=== PATIENT | male | born 1960 | race Caucasian/White ===

== ENCOUNTER → 2017-01-17 | Outpatient (CLI) | payer OTHER ==
[2016-06-23 15:31] VITALS: BP 119/56
[~2017-01-17] MED LIST: ATEN50TA PO; BENA40TA2 PO; CLON1TAB3 PO; CYCL10TA2 PO; DOCU-27 PO; FERR-26 PO; GABA600T2 PO; HYDR25TA9 PO; LEVO200T5 PO; LOSA100T6 PO; METH10TA2 PO; MULT-18 PO; NIFE30TA9 PO; RIVA10TA PO; TEST100V IM; WARF-78 PO; WARF10TA6 PO
== END | disposition home or self-care (01) ==
LOC: LAB 14:40
PROVIDERS: ATTEND Orthopaedic Surgery Sports Medicine
DX: M25.561 Pain in right knee (principal)
CPT/HCPCS: 36415; 85651; 86140

== ENCOUNTER → 2017-03-07 | Outpatient (CLI) | payer OTHER ==
[2016-06-23 15:31] VITALS: BP 119/56
[~2017-03-07] MED LIST changes: +DOCU-109 PO; -DOCU-27 PO
== END | disposition home or self-care (01) ==
LOC: LAB 13:26
PROVIDERS: ATTEND Orthopaedic Surgery Sports Medicine
DX: M25.561 Pain in right knee (principal)
CPT/HCPCS: 36415; 85651; 86140

== ENCOUNTER → 2017-05-04 | Outpatient (CLI) | payer OTHER ==
[2016-06-23 15:31] VITALS: BP 119/56
== END | disposition home or self-care (01) ==
LOC: LAB 15:21
PROVIDERS: ATTEND Orthopaedic Surgery Sports Medicine
DX: T84.84XD Pain due to internal orthopedic prosthetic devices, implants and grafts, subsequent encounter (principal)
CPT/HCPCS: 36415; 85651; 86141

== ENCOUNTER → 2017-07-18 | Outpatient (CLI) | payer OTHER ==
[2016-06-23 15:31] VITALS: BP 119/56
[2017-07-18 13:31] LABS: BASO # 0.1 x10^3/uL (0.0-0.2); BASO % 1 % (0-3); EOS % 2 % (0-3); HEMATOCRIT 44.3 % (39.0-53.0); HEMOGLOBIN 14.7 g/dL (13.0-17.5); LYMPH % 27 % (24-48); MEAN CORPUSCULAR HEMOGLOBIN 33 pg (25-35); MEAN CORPUSCULAR HGB CONC 33 g/dL (31-37); MEAN CORPUSCULAR VOLUME 100 fL (79-100); MONO % 6 % (0-9); NEUT % 64 % (31-73); PLATELET COUNT 189 x10^3/uL (140-400); RED BLOOD COUNT 4.44 x10^6/uL (4.30-5.70); RED CELL DISTRIBUTION WIDTH 13.3 % (11.5-14.5); WHITE BLOOD COUNT 7.4 x10^3/uL (4.0-11.0)
[2017-07-18 13:40] LABS: PROTHROMBIN TIME PATIENT 12.1 SEC (11.7-14.0)
[2017-07-18 13:57] LABS: CALCIUM 9.1 mg/dL (8.5-10.1); GFR 77.6; POTASSIUM 3.1 mmol/L (3.5-5.1); TOTAL BILIRUBIN 0.4 mg/dL (0.2-1.0)
== END | disposition home or self-care (01) ==
LOC: LAB 12:56
PROVIDERS: ATTEND Nurse Practitioner Family
DX: Z01.818 Encounter for other preprocedural examination (principal); R05 Cough; Z79.01 Long term (current) use of anticoagulants
CPT/HCPCS: 36415; 80053; 85025; 85379; 85610

== ENCOUNTER → 2017-07-18 | Outpatient (CLI) | payer OTHER ==
[2016-06-23 15:31] VITALS: BP 119/56
[~2017-07-18] MED LIST changes: +CONTRAST GIVEN MC PRN; +IOHEXOL 300 MG/ML 100ML VIAL. IV ONE
--- NOTE | 2017-07-18 16:13 | RAD ---
Chest, 2 views, 07/18/2017: History: Cough The heart size and pulmonary vascularity are normal. No pulmonary infiltrates are seen. There is no evidence of pleural fluid. Mild scattered spurs are present in the spine. There is slight chronic loss of height anteriorly of a lower thoracic vertebral body at approximately T12. IMPRESSION: No acute cardiopulmonary abnormality is detected.
--- NOTE | 2017-07-18 17:12 | RAD ---
Ventilation/perfusion lung scan, 07/18/2017: History: Coughing up blood, history of DVT The ventilation study was performed utilizing 23 mCi of xenon-133. There is symmetric activity in the lungs. There is good washout of xenon from both lungs. Faint hepatic activity is seen on the delayed images, typically related to hepatic steatosis. Perfusion imaging was performed utilizing 6.5 mCi of technetium 99m MAA. There is a small to moderate sized peripheral area of decreased activity in the posterolateral aspect of the right upper chest. This perfusion defect appears to be unmatched by a ventilation abnormality. No significant perfusion abnormality is seen in the left lung. IMPRESSION: Single small to moderate size perfusion defect in the right upper chest representing an intermediate probability of pulmonary emboli. CTA of the chest may be useful for further evaluation, if clinically indicated. Note: The findings were called to the ordering provider at 5:05 PM on 07/18/2017.
== END | disposition home or self-care (01) ==
LOC: KCIC CT 13:27
PROVIDERS: ATTEND Nurse Practitioner Family
DX: I26.99 Other pulmonary embolism without acute cor pulmonale (principal); K76.0 Fatty (change of) liver, not elsewhere classified; Z86.718 Personal history of other venous thrombosis and embolism; Z87.01 Personal history of pneumonia (recurrent); Z86.711 Personal history of pulmonary embolism
CPT/HCPCS: 71020; 78582; 96374; A9540; A9558

== ENCOUNTER 2017-07-19 10:20 | Emergency (ER) | payer OTHER ==
[~2017-07-19 10:20] MED LIST changes: -CONTRAST GIVEN MC PRN; -IOHEXOL 300 MG/ML 100ML VIAL. IV ONE
--- NOTE | 2017-07-19 10:46 | PHYS DOC ---
Past Medical History Past Medical History: Hypothyroid, Other Additional Past Medical Histor: CHRONIC BACK PAIN, hernia Past Surgical History: Other Additional Past Surgical Histo: UMBILICAL HERNIA REPAIR, FEMUR FX, VASECTOMY, BACK, RKA Alcohol Use: Heavy Drug Use: None Adult General Chief Complaint Chief Complaint: OTHER COMPLAINTS HPI HPI Patient is a 57 year old male who presents with no complaints. He states that he saw his primary care physician last week when he was coughing up some blood because it'll had the flu and she had ordered a steady make sure he hasn't had a PE. He states he was called this morning and told it could be positive go to the emergency department. He denies any fevers chills nausea vomiting, denies any shortness of breath, denies any hemoptysis he denies any leg swelling. He has had a history of DVT in the past and was on blood thinners and was taken off after 6 months. Review of Systems Review of Systems Constitutional: Denies fever or chills [] Eyes: Denies change in visual acuity, redness, or eye pain [] HENT: Denies nasal congestion or sore throat [] Respiratory: Denies cough or shortness of breath [] Cardiovascular: No additional information not addressed in HPI [] GI: Denies abdominal pain, nausea, vomiting, bloody stools or diarrhea [] : Denies dysuria or hematuria [] Musculoskeletal: Denies back pain or joint pain [] Integument: Denies rash or skin lesions [] Neurologic: Denies headache, focal weakness or sensory changes [] Endocrine: Denies polyuria or polydipsia [] All other systems were reviewed and found to be within normal limits, except as documented in this note. Current Medications Current Medications Current Medications Medications (Trade) Dose Ordered Sig/Mary Jane Start Time Stop Time Status Last Admin Dose Admin Info (Do NOT chart on this entry -- for MONITORING) 1 each PRN DAILY PRN 07/19/17 12:00 07/21/17 11:59 Iohexol (Omnipaque 300 Mg/ml) 75 ml 1X ONCE 07/19/17 11:45 07/19/17 11:48 DC 07/19/17 12:00 75 ML Sodium Chloride 1,000 ml @ 1,000 mls/hr Q1H 07/19/17 11:06 07/19/17 12:05 DC 07/19/17 11:37 1,000 MLS/HR Allergies Allergies Allergies Coded Allergies Type Severity Reaction Last Updated Verified escitalopram Allergy Severe 06/20/16 Yes fentanyl Allergy Intermediate Rash 06/20/16 Yes fluoxetine Adverse Reaction Severe 06/20/16 Yes duloxetine Adverse Reaction Intermediate Nausea and Vomiting 06/20/16 Yes metaxalone Adverse Reaction Intermediate Nausea and Vomiting 06/20/16 Yes oxycodone Adverse Reaction Intermediate Nausea and Vomiting 06/20/16 Yes pregabalin Adverse Reaction Intermediate Nausea and Vomiting 06/20/16 Yes tramadol Adverse Reaction Intermediate Nausea and Vomiting 06/20/16 Yes Physical Exam Physical Exam Constitutional: Well developed, well nourished, no acute distress, non-toxic appearance. [] HENT: Normocephalic, atraumatic, bilateral external ears normal, oropharynx moist, no oral exudates, nose normal. [] Eyes: PERRLA, EOMI, conjunctiva normal, no discharge. [] Neck: Normal range of motion, no tenderness, supple, no stridor. [] Cardiovascular:Heart rate regular rhythm, no murmur [] Lungs & Thorax: Bilateral breath sounds clear to auscultation [] Abdomen: Bowel sounds normal, soft, no tenderness, no masses, no pulsatile masses. [] Skin: Warm, dry, no erythema, no rash. [] Back: No tenderness, no CVA tenderness. [] Extremities: No tenderness, no cyanosis, no clubbing, ROM intact, no edema. [] Neurologic: Alert and oriented X 3, normal motor function, normal sensory function, no focal deficits noted. [] Psychologic: Affect normal, judgement normal, mood normal. [] Current Patient Data Vital Signs Vital Signs Date Time Temp Pulse Resp B/P (MAP) Pulse Ox O2 Delivery O2 Flow Rate FiO2 07/19/17 11:14 98.1 57 163/84 (110) 92 98.1 07/19/17 10:29 18 Room Air Lab Values Laboratory Tests Test 07/19/17 11:09 07/19/17 12:37 White Blood Count 7.4 x10^3/uL (4.0-11.0) Red Blood Count 4.26 x10^6/uL (4.30-5.70) L Hemoglobin 14.1 g/dL (13.0-17.5) Hematocrit 42.1 % (39.0-53.0) Mean Corpuscular Volume 99 fL (79-100) Mean Corpuscular Hemoglobin 33 pg (25-35) Mean Corpuscular Hemoglobin Concent 34 g/dL (31-37) Red Cell Distribution Width 12.7 % (11.5-14.5) Platelet Count 173 x10^3/uL (140-400) Neutrophils (%) (Auto) 65 % (31-73) Lymphocytes (%) (Auto) 26 % (24-48) Monocytes (%) (Auto) 5 % (0-9) Eosinophils (%) (Auto) 3 % (0-3) Basophils (%) (Auto) 1 % (0-3) Neutrophils # (Auto) 4.8 x10^3uL (1.8-7.7) Lymphocytes # (Auto) 1.9 x10^3/uL (1.0-4.8) Monocytes # (Auto) 0.4 x10^3/uL (0.0-1.1) Eosinophils # (Auto) 0.2 x10^3/uL (0.0-0.7) Basophils # (Auto) 0.1 x10^3/uL (0.0-0.2) Prothrombin Time 12.2 SEC (11.7-14.0) Prothrombin Time INR 1.0 (0.8-1.1) Sodium Level 137 mmol/L (136-145) Potassium Level 3.6 mmol/L (3.5-5.1) Chloride Level 96 mmol/L (98-107) L Carbon Dioxide Level 38 mmol/L (21-32) H Anion Gap 3 (6-14) L Blood Urea Nitrogen 14 mg/dL (8-26) Creatinine 0.9 mg/dL (0.7-1.3) Estimated GFR (Cockcroft-Gault) 87.6 Glucose Level 100 mg/dL (70-99) H Calcium Level 9.6 mg/dL (8.5-10.1) Magnesium Level 1.9 mg/dL (1.8-2.4) Total Bilirubin 0.6 mg/dL (0.2-1.0) Direct Bilirubin 0.1 mg/dL (0.0-0.2) Aspartate Amino Transferase (AST) 25 U/L (15-37) Alanine Aminotransferase (ALT) 32 U/L (16-63) Alkaline Phosphatase 83 U/L (46-116) Creatine Kinase 160 U/L (39-308) Creatine Kinase MB (Mass) < 0.5 ng/mL (0.0-3.6) Creatine Kinase MB Relative Index % (0-4) Troponin I Quantitative < 0.017 ng/mL (0.000-0.055) QH-Yid-P-Type Natriuretic Peptide 332 pg/mL (0-124) H Total Protein 7.6 g/dL (6.4-8.2) Albumin 3.8 g/dL (3.4-5.0) Lipase 192 U/L (73-393) Urine Collection Type Unknown Urine Color Yellow Urine Clarity Clear Urine pH 8.0 Urine Specific [place] 1.010 Urine Protein Negative mg/dL (NEG-TRACE) Urine Glucose (UA) Negative mg/dL (NEG) Urine Ketones (Stick) Negative mg/dL (NEG) Urine Blood Negative (NEG) Urine Nitrite Negative (NEG) Urine Bilirubin Negative (NEG) Urine Urobilinogen Dipstick 0.2 mg/dL (0.2 mg/dL) Urine Leukocyte Esterase Negative (NEG) Urine RBC 0 /HPF (0-2) Urine WBC Occ /HPF (0-4) Urine Squamous Epithelial Cells Occ /LPF Urine Bacteria 0 /HPF (0-FEW) Urine Opiates Screen Neg (NEG) Urine Methadone Screen Pos (NEG) Urine Barbiturates Neg (NEG) Urine Phencyclidine Screen Neg (NEG) Urine Amphetamine/Methamphetamine Neg (NEG) Urine Benzodiazepines Screen Neg (NEG) Urine Cocaine Screen Neg (NEG) Urine Cannabinoids Screen Neg (NEG) Urine Ethyl Alcohol Neg (NEG) Laboratory Tests 07/19/17 11:09 Laboratory Tests 07/19/17 11:09 EKG EKG EKG shows sinus rhythm with rate of [address] elevations or concerning T-wave inversions, normal axis, QTC 446 ms, as interpreted by me. Radiology/Procedures Radiology/Procedures CT Angio shows #[address] evidence of central PE, #2 mild dependent atelectasis of both lungs #3 asymmetric right breast density most likely representing unilateral gynecomastia. Clinical correlation/surveillance is suggested Impressions: CT scan does not show any PE Right-sided gynecomastia Course & Med Decision Making Course & Med Decision Making Pertinent Labs and Imaging studies reviewed. (See chart for details) Patient was seen because of a VQ scan that suggested a possible PE. Labs, EKG, CT angiogram did not show any PE. It did show enlargement of his right breast is concerning for gynecomastia. He is instructed to follow-up with primary care physician regarding these reports in the next few days. He is in stable condition this time being discharged home. Dragon Disclaimer Dragon Disclaimer This electronic medical record was generated, in whole or in part, using a voice recognition dictation system. Departure Departure Impression: Primary Impression: Hemoptysis Disposition: HOME, SELF-CARE Condition: STABLE Referrals: TAVON LAGOS MD (PCP) Patient Instructions: Cough, Adult Additional Instructions: You were seen today because you had an abnormal scan yesterday that showed that he might have a blood clot. We were able do a CT angiogram and it did not show any blood clots. You do have a growth in your right breast that you will need to have followed up on. Please talk to your primary care physician about your right breast. If you develop shortness of breath, dark coughing up blood, having chest pain or other concerns please return back to emergency department. Please follow-up to primary care physician within the next few days. DEE MICTHELL MD Jul 19, 2017 10:46
[2017-07-19] MEDS ORDERED: IV NORMAL SALINE 1000ML BAG 1,000 ML IV SCH (11:06)
[2017-07-19 11:17] LABS: BASO # 0.1 x10^3/uL (0.0-0.2); BASO % 1 % (0-3); EOS % 3 % (0-3); HEMATOCRIT 42.1 % (39.0-53.0); HEMOGLOBIN 14.1 g/dL (13.0-17.5); LYMPH # 1.9 x10^3/uL (1.0-4.8); LYMPH % 26 % (24-48); MEAN CORPUSCULAR HEMOGLOBIN 33 pg (25-35); MEAN CORPUSCULAR HGB CONC 34 g/dL (31-37); MEAN CORPUSCULAR VOLUME 99 fL (79-100); MONO % 5 % (0-9); NEUT % 65 % (31-73); PLATELET COUNT 173 x10^3/uL (140-400); RED BLOOD COUNT 4.26 x10^6/uL (4.30-5.70); RED CELL DISTRIBUTION WIDTH 12.7 % (11.5-14.5); WHITE BLOOD COUNT 7.4 x10^3/uL (4.0-11.0)
[2017-07-19 11:27] LABS: PROTHROMBIN TIME PATIENT 12.2 SEC (11.7-14.0)
--- NOTE | 2017-07-19 11:28 | EKG ---
[facility] [address] [place] [address] Test Date: 2017-07-19 Test Time: 10:41:32 Pat Name: MAURI SUAZO Department: Room: Gender: M Research Associate Professor: : 1960 Requested By: DEE MITCHELL Order Number: [id number] Reading MD: Toribio Clark Measurements Intervals [place] Rate: 51 P: 47 MN: 174 QRS: 19 QRSD: 98 T: 51 QT: 482 QTc: 446 Interpretive Statements SINUS RHYTHM Electronically Signed On 07-24-2017 16:42:38 CT SCAN SPECIAL PROCEDURES TECHNOLOGIST by Toribio Clark
[2017-07-19 11:29] LABS: CALCIUM 9.6 mg/dL (8.5-10.1); CREATININE 0.9 mg/dL (0.7-1.3); GFR 87.6; POTASSIUM 3.6 mmol/L (3.5-5.1)
[2017-07-19 11:35] LABS: ALBUMIN 3.8 g/dL (3.4-5.0); DIRECT BILIRUBIN 0.1 mg/dL (0.0-0.2); MAGNESIUM 1.9 mg/dL (1.8-2.4); TOTAL BILIRUBIN 0.6 mg/dL (0.2-1.0); TOTAL PROTEIN 7.6 g/dL (6.4-8.2)
[2017-07-19] MEDS ORDERED: IOHEXOL 300 MG/ML 100ML VIAL. IV ONE (11:45)
[2017-07-19 11:47] LABS: CKMB MASS < 0.5 ng/mL (0.0-3.6); CREATINE KINASE 160 U/L (39-308)
[2017-07-19] MEDS ORDERED: CONTRAST GIVEN MC PRN (12:00)
[2017-07-19 12:53] LABS: BILIRUBIN,URINE NEGATIVE (NEG); GLUCOSE,URINE NEGATIVE (NEG); NITRITE,URINE NEGATIVE (NEG); PROTEIN,URINE NEGATIVE (NEG-TRACE); UROBILINOGEN,URINE 0.2 mg/dL (0.2 mg/dL)
[2017-07-19 13:00] LABS: BARBITURATES NEG (NEG); BENZODIAZEPINES NEG (NEG); CANNABINOIDS NEG (NEG); COCAINE NEG (NEG); METHADONE POS (NEG); OPIATES NEG (NEG); PHENCYCLIDINE NEG (NEG)
[2017-07-19 13:10] LABS: SQUAMOUS EPITHELIAL CELL,UR OCC /LPF; WBC,URINE OCC /HPF (0-4)
[2017-07-19 13:11] LABS: BACTERIA,URINE 0 /HPF (0-FEW); RBC,URINE 0 /HPF (0-2)
[2017-07-19 14:14] VITALS: BP 155/88
--- NOTE | 2017-07-19 15:46 | RAD ---
CTA of the chest with contrast, 07/19/2017: History: Hemoptysis, abnormal VQ scan, possible pulmonary emboli Multidetector CT imaging was performed following an IV bolus injection of iodinated contrast material. Multiplanar reconstructions were produced including coronal and sagittal MIP images. The central pulmonary arteries are well opacified and no filling defects are seen to suggest pulmonary emboli. There are pulsation type artifacts related to the main pulmonary artery and ascending aorta. Minimal coronary artery calcification is noted. Small mediastinal and hilar lymph nodes are seen without evidence of pathologic enlargement. A small right upper lobe calcification appears to be related to a pulmonary vein. Hazy dependent opacities in both lower lobes are probably due to atelectasis. A component of scarring cannot be excluded. A couple of small subpleural blebs are present in the right lung base. No pulmonary mass is identified. There is no evidence of pleural fluid. Moderate multilevel degenerative changes are present in the spine. There is a triangular-shaped asymmetric area of increased density in the retroareolar region on the right. This most likely represents a unilateral gynecomastia. IMPRESSION: 1. No CT evidence of central pulmonary emboli.. 2. Mild dependent atelectasis in both lungs. 3. Asymmetric right breast density most likely representing unilateral gynecomastia. Clinical correlation/surveillance is suggested. PQRS Compliance Statement: One or more of the following individualized dose reduction techniques were utilized for this examination: 1. Automated exposure control 2. Adjustment of the mA and/or kV according to patient size 3. Use of iterative reconstruction technique
== END 2017-07-19 14:40 | disposition home or self-care (01) ==
LOC: ER 10:20
DX: R04.2 Hemoptysis (principal); N62 Hypertrophy of breast; Z86.718 Personal history of other venous thrombosis and embolism; E03.9 Hypothyroidism, unspecified; G89.29 Other chronic pain; F10.20 Alcohol dependence, uncomplicated; Z88.6 Allergy status to analgesic agent; Z88.5 Allergy status to narcotic agent; Z88.8 Allergy status to other drugs, medicaments and biological substances
CPT/HCPCS: 36415; 71275; 80048; 80076; 80307; 81001; 82553; 83690; 83735; 83880; 84484; 85025; 85610; 93005; 96360; 96361; 99285; J7030; Q9967; G0479

== ENCOUNTER → 2017-09-07 | Outpatient (CLI) | payer BC | END | disposition home or self-care (01) | LOC: KCIC 11:47 | DX: R05 Cough (principal); R91.8 Other nonspecific abnormal finding of lung field | CPT/HCPCS: 71046 ==

== ENCOUNTER → 2017-10-24 | Outpatient (CLI) | payer BC | END | disposition home or self-care (01) | LOC: KCIC 13:03 | DX: M25.561 Pain in right knee (principal); Z96.651 Presence of right artificial knee joint | CPT/HCPCS: 73562 ==

== ENCOUNTER → 2018-07-31 | Outpatient (CLI) | payer BC ==
[~2018-07-31] MED LIST changes: -BENA40TA2 PO; +BENA40TA3 PO; +CLON1TAB11 PO; -CLON1TAB3 PO; -FERR-26 PO; +FERR325T14 PO; +HYDR-2145 PO; -HYDR25TA9 PO; +LOSA100T14 PO; -LOSA100T6 PO; +NIFE30TA15 PO; -NIFE30TA9 PO; +WARF10TA40 PO; -WARF10TA6 PO
--- NOTE | 2018-07-31 15:55 | KCIC ---
CHEST PA LATERAL History: Pneumonia, productive cough and fatigue for 10 days.. Comparison: September 07, 2017 Heart size: Within normal limits. Sabiha/mediastinum: Within normal limits Lungs: No focal airspace consolidation. Pleura: No evidence of pleural effusion. Pneumothorax: None visualized Bones: Regional skeleton appears grossly intact. Miscellaneous: None Impression: No acute radiographic findings. Electronically signed by: Sánchez Reyes MD (07/31/2018 3:51 PM) [facility]-[id number]
== END | disposition home or self-care (01) ==
LOC: KCIC 13:02
PROVIDERS: ATTEND Family Medicine
DX: R05 Cough (principal); R53.83 Other fatigue; Z87.01 Personal history of pneumonia (recurrent)
CPT/HCPCS: 71046

== ENCOUNTER → 2020-12-10 | Outpatient (CLI) | payer MEDICARE ==
[2020-11-19 15:00] VITALS: BP 170/102
[~2020-12-10] MED LIST changes: -CLON1TAB11 PO; +CLONAZEPAM1 MG PO; -GABA600T2 PO; +GABA600T7 PO; +METF-658 PO; -WARF-78 PO; +WARF5TAB2 PO
--- NOTE | 2020-12-10 13:24 | RAD ---
EXAM: Bilateral lower extremity venous Doppler sonogram. HISTORY: Pain and swelling. TECHNIQUE: Duque scale and color Doppler sonographic evaluation of the bilateral lower extremity veins with spectral waveform analysis was performed. FINDINGS: There is normal color flow, normal compressibility and there are normal spectral waveforms in the common femoral, superficial femoral, popliteal, posterior tibial and greater saphenous veins. IMPRESSION: No Doppler evidence of lower extremity deep venous thrombosis. Electronically signed by: Alycia Kaur MD (12/10/2020 1:22 PM) [id number]
--- NOTE | 2020-12-10 13:35 | RAD ---
EXAM: Right knee, 3 views. HISTORY: Edema. COMPARISON: None. FINDINGS: 3 views of right knee are obtained. There is a right knee arthroplasty in expected position . There is a small to moderate right knee effusion. There are joint loose bodies. There is enthesopat hy along the superior patella. IMPRESSION: 1. Right knee arthroplasty in expected position. 2. Small to moderate right knee effusion and joint loose bodies. Electronically signed by: Alycia Kaur MD (12/10/2020 1:33 PM) [id number]
== END ==
LOC: US 12:31
PROVIDERS: ATTEND Internal Medicine Infectious Disease
DX: R60.0 Localized edema (principal); M25.461 Effusion, right knee; Z96.651 Presence of right artificial knee joint
CPT/HCPCS: 73562; 93970

== ENCOUNTER → 2020-12-30 | Outpatient (CLI) | payer MEDICARE ==
[2020-11-19 15:00] VITALS: BP 170/102
[~2020-12-30] MED LIST changes: +GADOTERATE 5 MMOL/10ML VIAL. IVP ONE
[2020-12-30 10:30] LABS: CREATININE 1.1 mg/dL (0.7-1.3); GFR 68.8
--- NOTE | 2020-12-30 16:52 | RAD ---
MRI of the cervical, thoracic and lumbar spine without and with contrast 12/30/2020 CLINICAL HISTORY: History of spinal epidural abscess. TECHNIQUE: Unenhanced T1-weighted and T2-weighted sagittal and axial images and inversion recovery sa gittal of the cervical, thoracic and lumbar spine were obtained. After the intravenous administration of 17 cc of Clariscan enhanced T1-weighted sagittal and axial images of the cervical, thoracic and l umbar spine were obtained. FINDINGS: Comparison is made to patient's MRI of the cervical, thoracic and lumbar spine dated 021. There is straightening of the normal cervical lordosis. Degenerative signal changes are seen involvin g all the disks of the cervical, thoracic and lumbar spine. Degenerative signal changes are seen with in the marrow surrounding these discs. No area of abnormal signal intensity is seen involving the spi nal cord. The patient is post laminectomy at C3 and T2 and T3. The enhancing fluid collections within the poste rior epidural space surrounding the cervical and thoracic spine have resolved with the patient's surg paradise. Enhancement is seen predominantly involving the posterior epidural space throughout the cervical spine extending inferiorly from the C3-4 level to the mid T1 level. This measures 5 mm in thickness. This likely represents residual epidural phlegmon. This has largely improved since the previous exam ination. The severe central spinal canal stenosis and cord impingement seen throughout the majority o f the cervical spinal cord on the previous examination has improved. Mild to moderate central spinal canal stenosis with mild right greater than left cord impingement is seen at C4-5 mild to moderate le ft greater than right central spinal canal stenosis with mild left greater than right cord impingemen t is seen at C5-6, C6-7 and C7-T1. The paraspinal abscesses seen within the right paraspinal soft tis sues on the previous examination have resolved. The epidural abscesses seen involving the anterior and posterior epidural space throughout the thorac ic spinal cord on the previous examination have largely resolved. Enhancement is seen within the ante rior and posterior epidural space which likely represents residual epidural phlegmon. The enhancement within the anterior epidural space measures 4 mm in thickness. The enhancement within the posterior epidural space measures 2 mm in thickness. This has largely improved since the previous examination. The central spinal canal stenosis and cord impingement seen on the previous examination have largely resolved. The patient is post laminectomy at T12-L1. The posterior epidural abscess seen on the previous examin ation in this region has been evacuated. Enhancement is seen within the posterior epidural space exte nding from T12 to L3 and within the anterior epidural space extending from L1 to through L4. Findings are again seen consistent with discitis/osteomyelitis at at L3-4. This does not appear significantly changed. The epidural phlegmon when combined with the changes of degenerative disc disease throughou t the lumbar spine result in moderate central spinal canal stenosis at L2-3, severe central spinal ca nal stenosis at L3-4, severe central spinal canal stenosis throughout the L4 level and L4-5. This has improved slightly since the previous examination. Bony fusion across L5-S1 disc space is again noted . The patient is post laminectomy at L5-S1. Increased signal intensity and abnormal enhancement is se en involving the psoas muscles and paraspinal muscles consistent with myositis. Several microabscesse s are seen scattered throughout the psoas muscles. These measure 3 mm to 1.1 cm in size. They appear to have decreased slightly in number since the previous examination. IMPRESSION: Post laminectomy at C3, T2-3 and T12-L1 with evacuation of the extensive epidural abscess es throughout the spine as discussed above. Residual epidural phlegmon is seen throughout the cervica l, thoracic and lumbar spine as discussed above. The central spinal canal stenosis and cord impingeme nt seen on the previous examinations has improved as discussed above. Findings are again seen consist ent with discitis/osteomyelitis at L3-4 which has not significantly changed. Electronically signed by: Stephane Munoz MD (12/30/2020 4:50 PM) [id number]
== END ==
LOC: MRI 09:47
PROVIDERS: ATTEND Internal Medicine Infectious Disease
DX: G06.2 Extradural and subdural abscess, unspecified (principal); M47.815 Spondylosis without myelopathy or radiculopathy, thoracolumbar region; M47.813 Spondylosis without myelopathy or radiculopathy, cervicothoracic region; M51.36 Other intervertebral disc degeneration, lumbar region; M48.061 Spinal stenosis, lumbar region without neurogenic claudication
CPT/HCPCS: 36415; 72156; 72157; 72158; 82565; A9575

== ENCOUNTER 2021-01-20 03:15 | Emergency (ER) | payer MEDICARE ==
[~2021-01-20] VITALS: Ht 172.7 cm; Wt 100.0 kg
[~2021-01-20 03:15] MED LIST changes: -GADOTERATE 5 MMOL/10ML VIAL. IVP ONE
[2021-01-20] MEDS ORDERED: MORPHINE SULFATE 4 MG/ML VIAL. IV ONE ×3 (03:30→10:30)
[2021-01-20] MEDS ORDERED: IV NORMAL SALINE 500ML BAG 500 ML IV ONE (03:30)
--- NOTE | 2021-01-20 03:35 | ED.ADGEN ---
Past Medical History Past Medical History: Hypothyroid, Other Additional Past Medical Histor: CHRONIC BACK PAIN, hernia Past Surgical History: Other Additional Past Surgical Histo: UMBILICAL HERNIA REPAIR, FEMUR FX, VASECTOMY, BACK, RKA Smoking Status: Former Smoker Alcohol Use: Heavy Drug Use: None General Adult EDM: Chief Complaint: POST-OP PROBLEM HPI: HPI: Patient is a 60 year old male brought in by EMS for low back pain. Patient states the pain is over his lumbar spine. Patient has been worsening over the past 3 to 4 days. Not taking thing for pain. Has a history significant for epidural abscesses were drained here 2 and half months ago. Patient states he was originally discharged with IV antibiotics via PICC which has been DC'd and he was transitioned to p.o. medications. Patient states the [facility] called him to change his prescription to cephalexin. He does not recall any other antibiotics he is or was taking. Denies any fevers. States he has not taken anything for pain. States the pain does not radiate. Denies any lower extremity weakness, bowel or bladder dysfunction. Denies any history of IV drug use or abscesses other than spinal abscesses. Patient states since 2001 he had a back surgery that was complicated by infection. Had a laminectomy with a titanium cage that became infected, was later removed. Review of Systems: Review of Systems: Constitutional: Denies fever or chills. [] Eyes: Denies change in visual acuity. [] HENT: Denies nasal congestion or sore throat. [] Respiratory: Denies cough or shortness of breath. [] Cardiovascular: Denies chest pain or edema. [] GI: Denies abdominal pain, nausea, vomiting, bloody stools or diarrhea. [] : Denies dysuria. [] Musculoskeletal: Denies back pain or joint pain. [] Integument: Denies rash. [] Neurologic: Denies headache, focal weakness or sensory changes. [] Endocrine: Denies polyuria or polydipsia. [] Lymphatic: Denies swollen glands. [] Psychiatric: Denies depression or anxiety. [] Current Medications: Current Medications Medications (Trade) Dose Ordered Sig/[facility] Start Time Stop Time Status Last Admin Dose Admin Info (CONTRAST GIVEN -- Rx MONITORING) 1 each PRN DAILY PRN 01/20/21 04:45 01/22/21 04:44 Iohexol (Omnipaque 300 Mg/ml) 75 ml 1X ONCE 01/20/21 04:45 01/20/21 04:46 DC 01/20/21 04:52 75 ML Morphine Sulfate (Morphine Sulfate) 4 mg 1X ONCE 01/20/21 05:00 01/20/21 05:01 DC 01/20/21 04:59 4 MG Potassium Chloride (Klor-Con) 40 meq 1X ONCE 01/20/21 05:00 01/20/21 05:01 DC 01/20/21 05:01 40 MEQ Sodium Chloride 500 ml @ 500 mls/hr 1X ONCE 01/20/21 03:30 01/20/21 04:29 DC 01/20/21 03:46 500 MLS/HR Allergies: Allergies: Allergies Coded Allergies Type Severity Reaction Last Updated Verified fentanyl Allergy Intermediate Rash 06/20/16 Yes escitalopram Adverse Reaction Severe 11/17/20 Yes fluoxetine Adverse Reaction Severe 06/20/16 Yes duloxetine Adverse Reaction Intermediate Nausea and Vomiting 06/20/16 Yes metaxalone Adverse Reaction Intermediate Nausea and Vomiting 06/20/16 Yes oxycodone Adverse Reaction Intermediate Nausea and Vomiting 06/20/16 Yes pregabalin Adverse Reaction Intermediate Nausea and Vomiting 06/20/16 Yes tramadol Adverse Reaction Intermediate Nausea and Vomiting 06/20/16 Yes Physical Exam: PE: Constitutional: Well developed, well nourished, no acute distress, non-toxic appearance. [] HENT: Normocephalic, atraumatic, bilateral external ears normal, oropharynx moist, no oral exudates, nose normal. [] Eyes: PERRLA, EOMI, conjunctiva normal, no discharge. [] Neck: Normal range of motion, no tenderness, supple, no stridor. [] Cardiovascular:Heart rate regular rhythm, no murmur [] Lungs & Thorax: Bilateral breath sounds clear to auscultation [] Abdomen: Bowel sounds normal, soft, no tenderness, no masses, no pulsatile masses. [] Skin: Warm, dry, no erythema, no rash. [] Back: No tenderness, no CVA tenderness. [] Extremities: No tenderness, no cyanosis, no clubbing, ROM intact, no edema. [] Neurologic: Alert and oriented X 3, normal motor function, normal sensory function, no focal deficits noted. [] Psychologic: Affect normal, judgement normal, mood normal. [] Current Patient Data: Labs: Laboratory Tests Test 01/20/21 03:30 01/20/21 03:36 Sodium Level 141 mmol/L (136-145) Potassium Level 3.0 mmol/L (3.5-5.1) L Chloride Level 99 mmol/L (98-107) Carbon Dioxide Level 27 mmol/L (21-32) Anion Gap 15 (6-14) H Blood Urea Nitrogen 32 mg/dL (8-26) H Creatinine 1.2 mg/dL (0.7-1.3) Estimated GFR (Cockcroft-Gault) 62.2 BUN/Creatinine Ratio 27 (6-20) H Glucose Level 100 mg/dL (70-99) H Calcium Level 9.9 mg/dL (8.5-10.1) Phosphorus Level 2.9 mg/dL (2.6-4.7) Magnesium Level 2.0 mg/dL (1.8-2.4) Total Bilirubin 0.6 mg/dL (0.2-1.0) Aspartate Amino Transferase (AST) 13 U/L (15-37) L Alanine Aminotransferase (ALT) 18 U/L (16-63) Alkaline Phosphatase 92 U/L (46-116) Total Protein 8.4 g/dL (6.4-8.2) H Albumin 4.2 g/dL (3.4-5.0) Albumin/Globulin Ratio 1.0 (1.0-1.7) White Blood Count 7.8 x10^3/uL (4.0-11.0) Red Blood Count 2.97 x10^6/uL (4.30-5.70) L Hemoglobin 9.4 g/dL (13.0-17.5) L Hematocrit 27.7 % (39.0-53.0) L Mean Corpuscular Volume 93 fL (79-100) Mean Corpuscular Hemoglobin 32 pg (25-35) Mean Corpuscular Hemoglobin Concent 34 g/dL (31-37) Red Cell Distribution Width 15.7 % (11.5-14.5) H Platelet Count 138 x10^3/uL (140-400) L Neutrophils (%) (Auto) 51 % (31-73) Lymphocytes (%) (Auto) 44 % (24-48) Monocytes (%) (Auto) 4 % (0-9) Eosinophils (%) (Auto) 1 % (0-3) Basophils (%) (Auto) 1 % (0-3) Neutrophils # (Auto) 4.0 x10^3/uL (1.8-7.7) Lymphocytes # (Auto) 3.4 x10^3/uL (1.0-4.8) Monocytes # (Auto) 0.3 x10^3/uL (0.0-1.1) Eosinophils # (Auto) 0.0 x10^3/uL (0.0-0.7) Basophils # (Auto) 0.1 x10^3/uL (0.0-0.2) Erythrocyte Sedimentation Rate 55 (0-15) H Lactic Acid Level 2.6 mmol/L (0.4-2.0) H C-Reactive Protein, Quantitative 4.9 mg/L (0-3.3) H WP-Wgp-P-Type Natriuretic Peptide 204 pg/mL (0-124) H Laboratory Tests 01/20/21 03:36 Laboratory Tests 01/20/21 03:30 Vital Signs: Vital Signs Date Time Temp Pulse Resp B/P (MAP) Pulse Ox O2 Delivery O2 Flow Rate FiO2 01/20/21 05:22 72 97 01/20/21 04:59 20 Nasal Cannula 01/20/21 03:20 98.6 114/64 (81) 98.6 EKG: EKG: [] Heart Score: C/O Chest Pain: No Risk Factors: Risk Factors: DM, Current or recent (<one month) smoker, HTN, HLP, family history of CAD, obesity. Risk Scores: Score 0 - 3: 2.5% MACE over next 6 weeks - Discharge Home Score 4 - 6: 20.3% MACE over next 6 weeks - Admit for Clinical Observation Score 7 - 10: 72.7% MACE over next 6 weeks - Early Invasive Strategies Radiology/Procedures: Radiology/Procedures: PROCEDURE: CT LUMBAR SPINE WO/W CONTRAST EXAM: CT lumbar spine with and without IV contrast CLINICAL HISTORY: Epidural abscess COMPARISON: MRI 12/30/2020 TECHNIQUE: Helical CT was performed through the lumbar spine before and after the administration of IV contrast. Axial, coronal and sagittal reformatted images were generated. PQRS compliance statement - One or more of the following individualized dose reduction techniques were utilized for this study: 1. Automated exposure control 2. Adjustment of the mA and/or kV according to patient size 3. Use of iterative reconstruction technique FINDINGS: Transitional lumbosacral anatomy. In keeping with prior numeration small ribs are seen at L1. Endplate erosive/destructive changes centered at the L3-4 level with associated sclerosis is consistent with known epidural abscess. No obvious epidural collection is seen although prominent epidural thickening and paraspinal soft tissue thickening is seen. No acute fracture. Interbody fusion L5-S1. Severe L2-3 disc height loss. Postsurgical changes with laminectomy seen at L2-S1 IMPRESSION: Transitional lumbosacral anatomy. Endplate destructive changes L3-4 likely from known discitis/osteomyelitis. Although no definite epidural collection is seen, mild epidural thickening is noted possibly residual phlegmon. This can be further assessed by MRI. [] Course & Med Decision Making: Course & Med Decision Making Pertinent Labs and Imaging studies reviewed. (See chart for details) Discussed with Dr. Talha Castro's physician assistant primary care. Requesting MRI with and without contrast from emergency department to further evaluate epidural thickening. Care transition at shift change. [] Shane Disclaimer: Shane Disclaimer: This electronic medical record was generated, in whole or in part, using a voice recognition dictation system. Departure Departure Referrals: ARMANDO CARLOS MD (PCP) SHANIQUA SCHULTE MD Jan 20, 2021 03:35
[2021-01-20 03:51] LABS: BASO # 0.1 x10^3/uL (0.0-0.2); BASO % 1 % (0-3); EOS % 1 % (0-3); HEMATOCRIT 27.7 % (39.0-53.0); HEMOGLOBIN 9.4 g/dL (13.0-17.5); LYMPH # 3.4 x10^3/uL (1.0-4.8); LYMPH % 44 % (24-48); MEAN CORPUSCULAR HEMOGLOBIN 32 pg (25-35); MEAN CORPUSCULAR HGB CONC 34 g/dL (31-37); MEAN CORPUSCULAR VOLUME 93 fL (79-100); MONO # 0.3 x10^3/uL (0.0-1.1); MONO % 4 % (0-9); NEUT % 51 % (31-73); PLATELET COUNT 138 x10^3/uL (140-400); RED BLOOD COUNT 2.97 x10^6/uL (4.30-5.70); RED CELL DISTRIBUTION WIDTH 15.7 % (11.5-14.5); WHITE BLOOD COUNT 7.8 x10^3/uL (4.0-11.0)
[2021-01-20 04:06] LABS: CALCIUM 9.9 mg/dL (8.5-10.1); CREATININE 1.2 mg/dL (0.7-1.3); GFR 62.2
[2021-01-20 04:12] LABS: ALBUMIN 4.2 g/dL (3.4-5.0); TOTAL BILIRUBIN 0.6 mg/dL (0.2-1.0); TOTAL PROTEIN 8.4 g/dL (6.4-8.2)
[2021-01-20 04:13] LABS: PHOSPHORUS 2.9 mg/dL (2.6-4.7)
[2021-01-20] MEDS ORDERED: CONTRAST GIVEN. MC PRN (04:45)
[2021-01-20] MEDS ORDERED: IOHEXOL 300 MG/ML 100ML VIAL. IV ONE (04:45)
[2021-01-20] MEDS ORDERED: POTASSIUM CHLORIDE 20 MEQ TABLET.ER. PO ONE (05:00)
--- NOTE | 2021-01-20 05:35 | RAD ---
EXAM: CT lumbar spine with and without IV contrast CLINICAL HISTORY: Epidural abscess COMPARISON: MRI 12/30/2020 TECHNIQUE: Helical CT was performed through the lumbar spine before and after the administration of I V contrast. Axial, coronal and sagittal reformatted images were generated. PQRS compliance statement - One or more of the following individualized dose reduction techniques wer e utilized for this study: 1. Automated exposure control 2. Adjustment of the mA and/or kV according to patient size 3. Use of iterative reconstruction technique FINDINGS: Transitional lumbosacral anatomy. In keeping with prior numeration small ribs are seen at L1. Endplate erosive/destructive changes centered at the L3-4 level with associated sclerosis is consiste nt with known epidural abscess. No obvious epidural collection is seen although prominent epidural th ickening and paraspinal soft tissue thickening is seen. No acute fracture. Interbody fusion L5-S1. Severe L2-3 disc height loss. Postsurgical changes with laminectomy seen at L 2-S1 IMPRESSION: Transitional lumbosacral anatomy. Endplate destructive changes L3-4 likely from known discitis/osteomyelitis. Although no definite epidural collection is seen, mild epidural thickening is noted possibly residual phlegmon. This can be further assessed by MRI. Electronically signed by: Mac Lee MD (01/20/2021 5:33 AM) ZECHARIAH
[2021-01-20] MEDS ORDERED: ONDANSETRON PF 4 MG/2 ML VIAL. IVP ONE (07:30)
[2021-01-20] MEDS ORDERED: GADOTERATE 7.5 MMOL/15ML VIAL. IVP ONE (09:45)
--- NOTE | 2021-01-20 10:44 | RAD ---
MRI of the lumbar spine without and with contrast 01/20/2021 CLINICAL HISTORY: History of discitis/osteomyelitis involving the lumbar spine with history of epidur al abscess. TECHNIQUE: Unenhanced T1-weighted and T2-weighted sagittal and axial and inversion recovery sagittal images of the lumbar spine were obtained. After the intravenous administration 20 cc of Clariscan, en hanced fat saturated T1-weighted sagittal and axial images of the lumbar spine were obtained. FINDINGS: Comparison study is dated 12/30/2020. Mild S-shaped curvature of the thoracolumbar spine is seen. The patient is post laminectomy at T12-L1 and L5-S1. Mild anterolisthesis of L4 in relation to L5 is seen. Bony fusion across the L4-5 disc sp janessa is again noted. A hypoplastic disc is seen at L5-S1. Degenerative signal changes and varying loss of height are seen involving all the disks of the lower thoracic and lumbar disc spaces. Findings ar e again seen consistent with discitis/osteomyelitis at L2-3. This has improved since the previous exa mination. The enhancing epidural phlegmon seen within the anterior and posterior epidural space from the previous examination has largely resolved. The myositis and microabscesses seen throughout the vi sualized psoas muscles has improved. No new area of discitis/osteomyelitis is seen. The changes of degenerative disc disease are again seen throughout the lumbar disc spaces. These cons ist of mild to moderate generalized disc bulges, degenerative changes involving the facet joints and mild to moderate ligamentum flavum hypertrophy. These findings result in mild central spinal canal st enosis at L1-2, severe central spinal canal stenosis at L3-4 and moderate to severe central spinal ca nal stenosis at L4-5 and mild to moderate bilateral neural foraminal stenosis is seen at L1-2, L2-3 a nd L3-4. IMPRESSION: There has been interval improvement in the discitis/osteomyelitis involving the lumbar sp ine as discussed above. The enhancing epidural phlegmon seen on the previous examination has largely resolved. No new area of discitis/osteomyelitis is seen. Electronically signed by: Stephane Munoz MD (01/20/2021 10:42 AM) [id number]
[2021-01-20] MEDS ORDERED: OXYC1TAB15 PO (11:11)
[2021-01-20 14:52] VITALS: BP 114/56
== END 2021-01-20 15:15 | disposition home or self-care (01) ==
LOC: ER 03:15
DX: M54.5 Low back pain (principal); G89.29 Other chronic pain; M46.26 Osteomyelitis of vertebra, lumbar region; E03.9 Hypothyroidism, unspecified; Z87.891 Personal history of nicotine dependence; F10.20 Alcohol dependence, uncomplicated; Y90.9 Presence of alcohol in blood, level not specified; Z88.4 Allergy status to anesthetic agent; Z88.5 Allergy status to narcotic agent; Z88.6 Allergy status to analgesic agent; Z88.8 Allergy status to other drugs, medicaments and biological substances
CPT/HCPCS: 36415; 72133; 72158; 80053; 83605; 83735; 83880; 84100; 85025; 85651; 86140; 87040; 96361; 96374; 96375; 96376; 99284; A9575; G0480; J2270; J2405; J7040; Q9967

== ENCOUNTER 2021-01-26 13:31 | Inpatient (IN) | payer MEDICARE ==
[~2021-01-26] VITALS: Ht 172.7 cm; Wt 84.5 kg
[~2021-01-26 13:31] MED LIST changes: +OXYC1TAB15 PO
[2021-01-26] MEDS ORDERED: ONDANSETRON PF 4 MG/2 ML VIAL. IV ONE (14:30)
[2021-01-26] MEDS ORDERED: CONTRAST GIVEN. MC PRN (14:30)
[2021-01-26] MEDS ORDERED: fentaNYL PF VIAL 100 MCG/2 ML VIAL IV ONE (14:30)
[2021-01-26] MEDS ORDERED: IOHEXOL 300 MG/ML 100ML VIAL. IV ONE (14:30)
[2021-01-26 14:38] LABS: BASO % 1 % (0-3); EOS % 1 % (0-3); HEMATOCRIT 22.9 % (39.0-53.0); HEMOGLOBIN 7.7 g/dL (13.0-17.5); LYMPH # 2.1 x10^3/uL (1.0-4.8); LYMPH % 32 % (24-48); MEAN CORPUSCULAR HEMOGLOBIN 32 pg (25-35); MEAN CORPUSCULAR HGB CONC 34 g/dL (31-37); MEAN CORPUSCULAR VOLUME 94 fL (79-100); MONO # 0.3 x10^3/uL (0.0-1.1); MONO % 5 % (0-9); NEUT # 4.1 x10^3/uL (1.8-7.7); NEUT % 62 % (31-73); PLATELET COUNT 81 x10^3/uL (140-400); RED BLOOD COUNT 2.44 x10^6/uL (4.30-5.70); RED CELL DISTRIBUTION WIDTH 15.8 % (11.5-14.5); WHITE BLOOD COUNT 6.5 x10^3/uL (4.0-11.0)
[2021-01-26 14:45] LABS: CALCIUM 8.7 mg/dL (8.5-10.1); CREATININE 1.4 mg/dL (0.7-1.3); GFR 51.9; POTASSIUM 4.3 mmol/L (3.5-5.1)
[2021-01-26 14:54] LABS: ALBUMIN 3.8 g/dL (3.4-5.0); ALBUMIN/GLOBULIN RATIO 1.1 (1.0-1.7); C-REACTIVE PROTEIN 2.1 mg/L (0-3.3); TOTAL BILIRUBIN 0.4 mg/dL (0.2-1.0); TOTAL PROTEIN 7.3 g/dL (6.4-8.2)
--- NOTE | 2021-01-26 15:18 | RAD ---
Exam: CT lumbar spine with contrast INDICATION: Lower back pain, unable to void TECHNIQUE: Sequential axial images through the lumbar spine obtained without IV contrast. Sagittal an d coronal reformatted images were reconstructed from the axial data and reviewed. Exposure: One or more of the following in the visualized dose reduction techniques were utilized for this examination: 1. Automated exposure control 2. Adjustment of the MA and/or KV according to patient size 3. Use of iterative of reconstructive technique Comparisons: MRI lumbar spine 01/20/2021 FINDINGS: Vertebral body heights are well-maintained. Grade 1 retrolisthesis of L3 on L4. Transitional anatomy is again noted with lumbarization of the S1 vertebral body. Fracture to the lumbar spine is not identified. Laminectomy changes at L2-L3 and at the transitional level are again seen. Redemonstration of endplate destructive changes at L3-L4 similar to the prior study with associated a djacent sclerosis in the vertebral bodies.. This is not significantly changed when compared to the pr ior exam. At least moderate spinal canal stenosis at this level. There is severe degenerative change at L2-L3 causing moderate severe bilateral neural foraminal steno sis greater on the left. Additionally there is at least moderate spinal canal stenosis at L4-L5. Visualized paraspinal soft tissues are unremarkable. IMPRESSION: Redemonstrated changes of discitis osteomyelitis at L3-L4 with at least moderate spinal canal stenosi s at that level similar to the prior study. Electronically signed by: Morenita Duncan MD (01/26/2021 3:16 PM) LIBBY
[2021-01-26 17:05] LABS: BILIRUBIN,URINE NEGATIVE (NEG); CLARITY,URINE CLEAR; COLOR,URINE YELLOW; NITRITE,URINE NEGATIVE (NEG); PH,URINE 5.5 (<5.0-8.0); PROTEIN,URINE 30 mg/dL (NEG-TRACE); UROBILINOGEN,URINE 0.2 mg/dL (0.2 mg/dL)
--- NOTE | 2021-01-26 17:06 | ED.ADGEN ---
Past Medical History Past Medical History: Anxiety, Arthritis, Constipation, Depression, DVT, Hypertension, Hypothyroid, Pneumonia, Other Additional Past Medical Histor: CHRONIC BACK PAIN, hernia, SLEEP APNEA Past Surgical History: Other Additional Past Surgical Histo: UMBILICAL HERNIA REPAIR, FEMUR FX, VASECTOMY, BACK, RKA Smoking Status: Former Smoker Alcohol Use: Heavy Drug Use: None General Adult EDM: Chief Complaint: URINARY RETENTION HPI: HPI: Patient is a 61 year old male who presents emergency department via EMS with complaints of acute urinary retention since January 24, 2021 in the evening and increased lower back pain. Patient denies any recent injury or fall. He reports a history of chronic lower back pain. Patient states he was seen here on January 20, 2021 for the same back pain. Patient currently rates the pain a 9 out of 10 on the pain scale, he denies any alleviating factors. Patient states he has pressure in his lower abdomen due to his bladder being full. He denies any history of enlarged prostate. Patient denies any fever, cough, shortness of breath, nausea, vomiting, diarrhea, or new injury. He reports a history of neuropathy in both of his lower extremities is any change in his sensation. Review of Systems: Review of Systems: Complete ROS is negative unless otherwise noted in HPI. Current Medications: Current Medications Medications (Trade) Dose Ordered Sig/[facility] Start Time Stop Time Status Last Admin Dose Admin Fentanyl Citrate (Fentanyl 2ml Vial) 50 mcg 1X ONCE 01/26/21 14:30 01/26/21 14:31 DC 01/26/21 14:59 50 MCG Info (CONTRAST GIVEN -- Rx MONITORING) 1 each PRN DAILY PRN 01/26/21 14:30 01/28/21 14:29 Iohexol (Omnipaque 300 Mg/ml) 75 ml 1X ONCE 01/26/21 14:30 01/26/21 14:31 DC 01/26/21 14:54 75 ML Ondansetron HCl (Zofran) 4 mg 1X ONCE 01/26/21 14:30 01/26/21 14:31 DC 01/26/21 14:59 4 MG Allergies: Allergies: Allergies Coded Allergies Type Severity Reaction Last Updated Verified fentanyl Allergy Intermediate Rash 06/20/16 Yes escitalopram Adverse Reaction Severe 11/17/20 Yes fluoxetine Adverse Reaction Severe 06/20/16 Yes duloxetine Adverse Reaction Intermediate Nausea and Vomiting 06/20/16 Yes metaxalone Adverse Reaction Intermediate Nausea and Vomiting 06/20/16 Yes oxycodone Adverse Reaction Intermediate Nausea and Vomiting 06/20/16 Yes pregabalin Adverse Reaction Intermediate Nausea and Vomiting 06/20/16 Yes tramadol Adverse Reaction Intermediate Nausea and Vomiting 06/20/16 Yes Physical Exam: PE: See Above Constitutional: Well developed, well nourished, no acute distress, non-toxic appearance, appears uncomfortable, irritable and frustrated demeanor. [] HENT: Normocephalic, atraumatic, bilateral external ears normal, nose normal. [] Eyes: PERRLA, EOMI, conjunctiva normal, no discharge. [] Neck: Normal range of motion, no stridor. [] Cardiovascular:Heart rate regular rhythm Lungs & Thorax: Respirations even and unlabored, no retractions, no respiratory distress Abdomen: soft, no palpable mass Skin: Warm, dry, no erythema, no rash. [] Extremities: No cyanosis, ROM intact, no edema. [] Neurologic: Alert and oriented X 3, no focal deficits noted. [] Psychologic: Affect irritable, judgement normal, mood normal. [] Current Patient Data: Labs: Laboratory Tests Test 01/26/21 14:20 01/26/21 14:24 Urine Collection Type Unknown Urine Color Yellow Urine Clarity Clear Urine pH 5.5 (<5.0-8.0) Urine Specific [place] 1.020 (1.000-1.030) Urine Protein 30 mg/dL (NEG-TRACE) Urine Glucose (UA) Negative mg/dL (NEG) Urine Ketones (Stick) Negative mg/dL (NEG) Urine Blood Negative (NEG) Urine Nitrite Negative (NEG) Urine Bilirubin Negative (NEG) Urine Urobilinogen Dipstick 0.2 mg/dL (0.2 mg/dL) Urine Leukocyte Esterase Moderate (NEG) Urine RBC Rare /HPF (0-2) Urine WBC 20-40 /HPF (0-4) Urine Bacteria Few /HPF (0-FEW) Urine Hyaline Casts Many /HPF Urine Mucus Marked /LPF Urine Yeast Present /HPF White Blood Count 6.5 x10^3/uL (4.0-11.0) Red Blood Count 2.44 x10^6/uL (4.30-5.70) L Hemoglobin 7.7 g/dL (13.0-17.5) L Hematocrit 22.9 % (39.0-53.0) L Mean Corpuscular Volume 94 fL (79-100) Mean Corpuscular Hemoglobin 32 pg (25-35) Mean Corpuscular Hemoglobin Concent 34 g/dL (31-37) Red Cell Distribution Width 15.8 % (11.5-14.5) H Platelet Count 81 x10^3/uL (140-400) L Neutrophils (%) (Auto) 62 % (31-73) Lymphocytes (%) (Auto) 32 % (24-48) Monocytes (%) (Auto) 5 % (0-9) Eosinophils (%) (Auto) 1 % (0-3) Basophils (%) (Auto) 1 % (0-3) Neutrophils # (Auto) 4.1 x10^3/uL (1.8-7.7) Lymphocytes # (Auto) 2.1 x10^3/uL (1.0-4.8) Monocytes # (Auto) 0.3 x10^3/uL (0.0-1.1) Eosinophils # (Auto) 0.0 x10^3/uL (0.0-0.7) Basophils # (Auto) 0.0 x10^3/uL (0.0-0.2) Erythrocyte Sedimentation Rate 31 (0-15) H Sodium Level 138 mmol/L (136-145) Potassium Level 4.3 mmol/L (3.5-5.1) Chloride Level 101 mmol/L (98-107) Carbon Dioxide Level 23 mmol/L (21-32) Anion Gap 14 (6-14) Blood Urea Nitrogen 30 mg/dL (8-26) H Creatinine 1.4 mg/dL (0.7-1.3) H Estimated GFR (Cockcroft-Gault) 51.9 BUN/Creatinine Ratio 21 (6-20) H Glucose Level 110 mg/dL (70-99) H Calcium Level 8.7 mg/dL (8.5-10.1) Total Bilirubin 0.4 mg/dL (0.2-1.0) Aspartate Amino Transferase (AST) 14 U/L (15-37) L Alanine Aminotransferase (ALT) 22 U/L (16-63) Alkaline Phosphatase 74 U/L (46-116) C-Reactive Protein, Quantitative 2.1 mg/L (0-3.3) Total Protein 7.3 g/dL (6.4-8.2) Albumin 3.8 g/dL (3.4-5.0) Albumin/Globulin Ratio 1.1 (1.0-1.7) Laboratory Tests 01/26/21 14:24 Laboratory Tests 01/26/21 14:24 Vital Signs: Vital Signs Date Time Temp Pulse Resp B/P (MAP) Pulse Ox O2 Delivery O2 Flow Rate FiO2 01/26/21 16:53 76 100/55 (70) 97 Room Air 01/26/21 14:59 18 01/26/21 13:32 98.0 98.0 EKG: EKG: [] Heart Score: C/O Chest Pain: No Risk Scores: Score 0 - 3: 2.5% MACE over next 6 weeks - Discharge Home Score 4 - 6: 20.3% MACE over next 6 weeks - Admit for Clinical Observation Score 7 - 10: 72.7% MACE over next 6 weeks - Early Invasive Strategies Radiology/Procedures: Radiology/Procedures: PROCEDURE: CT LUMBAR SPINE W/CONTRAST Exam: CT lumbar spine with contrast INDICATION: Lower back pain, unable to void TECHNIQUE: Sequential axial images through the lumbar spine obtained without IV contrast. Sagittal and coronal reformatted images were reconstructed from the axial data and reviewed. Exposure: One or more of the following in the visualized dose reduction techniques were utilized for this examination: 1. Automated exposure control 2. Adjustment of the MA and/or KV according to patient size 3. Use of iterative of reconstructive technique Comparisons: MRI lumbar spine 01/20/2021 FINDINGS: Vertebral body heights are well-maintained. Grade 1 retrolisthesis of L3 on L4. Transitional anatomy is again noted with lumbarization of the S1 vertebral body. Fracture to the lumbar spine is not identified. Laminectomy changes at L2-L3 and at the transitional level are again seen. Redemonstration of endplate destructive changes at L3-L4 similar to the prior study with associated adjacent sclerosis in the vertebral bodies.. This is not significantly changed when compared to the prior exam. At least moderate spinal canal stenosis at this level. There is severe degenerative change at L2-L3 causing moderate severe bilateral neural foraminal stenosis greater on the left. Additionally there is at least moderate spinal canal stenosis at L4-L5. Visualized paraspinal soft tissues are unremarkable. IMPRESSION: Redemonstrated changes of discitis osteomyelitis at L3-L4 with at least moderate spinal canal stenosis at that level similar to the prior study. [] Course & Med Decision Making: Course & Med Decision Making Pertinent Labs and Imaging studies reviewed. (See chart for details) 1704- Per Gloria, she has spoke with Dr. Hanson and requests that the patient be admitted to hospitalist for acute urinary retention. Order MRI of C-spine and T-spine w/wo to be done during admission. 1715-spoke with Dr. Anderson who is the admitting physician, and care was assumed following discussion of patient. Will admit patient for back pain and acute urinary retention Patient's vital signs stable. Patient remains afebrile, appears nontoxic, respirations even and unlabored. Patient will be admitted to the medical surgical floor. Patient's case and plan of care also discussed with Dr. Ulloa [] Shane Disclaimer: Shane Disclaimer: This electronic medical record was generated, in whole or in part, using a voice recognition dictation system. Departure Departure Referrals: ARMANDO CARLOS MD (PCP) HELIO ELDER BUDGET SPECIALIST Jan 26, 2021 17:06
[2021-01-26 17:17] LABS: HYALINE CASTS, URINE MANY /HPF
[2021-01-26 17:18] LABS: YEAST,URINE PRESENT /HPF
[2021-01-26 17:21] LABS: WBC,URINE 20-40 /HPF (0-4)
[2021-01-26 17:22] LABS: RBC,URINE RARE /HPF (0-2)
[2021-01-26 17:23] LABS: BACTERIA,URINE FEW /HPF (0-FEW)
--- NOTE | 2021-01-26 17:57 | PDOC1 ---
History and Physical Date of Admission Date of Admission DATE: 01/26/21 TIME: 17:39 Identification/Chief Complaint Chief Complaint Urinary retention Source Source: Chart review, Patient History of Present Illness History of Present Illness Patient is a 61-year-old male recent past medical history osteomyelitis, who presents to the ED with complaints of urinary retention. Patient states he has not urinated in the past 2 days with associated bladder distention. He was recently admitted on 11/02/2020 for spinal epidural abscess, paraspinal cervical abscess, and osteomyelitis. He states he is currently on an antibiotic 3 times daily, but cannot member the name of this antibiotic. CT lumbar spine obtained in the ED showed redemonstrated changes of discitis osteomyelitis at L3-L4 with at least moderate spinal canal stenosis at that level L2-L5. Coello catheter was placed in the ED with reportedly 1000 mL urine output. Patient states he feels significantly better after having Coello placed, but is also reports chronic right knee pain. He has had right knee pain over this past 3 years since total knee replacement, but states his pain is worsened over the past 3 days causing him difficulty moving. States his knee is slightly more mobile after pain medication he received in the ED. Neurosurgery was consulted in the ED and requesting admission. Will admit patient for further medical management. Past Medical History Cardiovascular: HTN Pulmonary: Pneumonia, Other CENTRAL NERVOUS SYSTEM: Other GI: Constipation, Hemorrhoids Heme/Onc: Other Psych: Anxiety, Addictions, Depression, Schizophrenia Renal/: Other Endocrine: Hypothyroidism Past Surgical History Past Surgical History: Hernia Repair, Other (Laminectomy) Family History Family History: Coronary Artery Disease, Heart Disease, Other Social History Smoke: Quit ALCOHOL: other (Former heavy alcohol use, patient states last drink was 2 years ago.) Drugs: None Current Medications Current Medications Current Medications Iohexol (Omnipaque 300 Mg/ml) 75 ml 1X ONCE IV Last administered on 01/26/21at 14:54; Start 01/26/21 at 14:30; Stop 01/26/21 at 14:31; Status DC Info (CONTRAST GIVEN -- Rx MONITORING) 1 each PRN DAILY PRN MC SEE COMMENTS; Start 01/26/21 at 14:30; Stop 01/28/21 at 14:29 Fentanyl Citrate (Fentanyl 2ml Vial) 50 mcg 1X ONCE IV Last administered on 01/26/21at 14:59; Start 01/26/21 at 14:30; Stop 01/26/21 at 14:31; Status DC Ondansetron HCl (Zofran) 4 mg 1X ONCE IV Last administered on 01/26/21at 14:59; Start 01/26/21 at 14:30; Stop 01/26/21 at 14:31; Status DC Active Scripts Active Percocet 5-325 Mg Tablet (Oxycodone/Acetaminophen) 1 Each Tablet 1 Tab PO PRN Q6HRS PRN 5 Days Metformin Hcl Er (Metformin Hcl) 500 Mg Tab.er.24h 500 Mg PO DAILYWBKFT 30 Days Reported Ferrous Sulfate 325 Mg Tablet 1 Tab PO BID Cyclobenzaprine Hcl 10 Mg Tablet 10 Mg PO HS Nifedipine Er (Nifedipine) 30 Mg Tablet.er 30 Mg PO HS Atenolol 50 Mg Tablet 50 Mg PO DAILY Losartan Potassium 100 Mg Tablet 100 Mg PO DAILY16 Colace (Docusate Sodium) 100 Mg Capsule 100 Mg PO DAILY Gabapentin 600 Mg Tablet 1,800 Mg PO BID Levothyroxine Sodium 200 Mcg Tablet 200 Mcg PO DAILYAC Hydrochlorothiazide Tablet (Hydrochlorothiazide) 25 Mg Tablet 50 Mg PO DAILY Allergies Allergies: Coded Allergies: fentanyl (Verified Allergy, Intermediate, Rash, 06/20/16) escitalopram (Verified Adverse Reaction, Severe, 11/17/20) severe headache like head is exploding fluoxetine (Verified Adverse Reaction, Severe, 06/20/16) severe headache like head is exploding duloxetine (Verified Adverse Reaction, Intermediate, Nausea and Vomiting, 06/20/16) metaxalone (Verified Adverse Reaction, Intermediate, Nausea and Vomiting, 06/20/16) oxycodone (Verified Adverse Reaction, Intermediate, Nausea and Vomiting, 06/20/16) pregabalin (Verified Adverse Reaction, Intermediate, Nausea and Vomiting, 06/20/16) tramadol (Verified Adverse Reaction, Intermediate, Nausea and Vomiting, 06/20/16) ROS Review of System GENERAL: No history of weight change, weakness or fevers. SKIN: No bruising, hair changes or rashes. EYES: No blurred, double or loss of vision. NOSE AND THROAT: No history of nosebleeds, hoarseness or sore throat. HEART: Denies chest pain, denies palpitations. LUNGS: Denies cough, hemoptysis, wheezing or shortness of breath. GASTROINTESTINAL: Denies nausea, vomiting, abdominal pain. GENITOURINARY: Urinary retention. Denies dysuria, frequency, urgency, hematuria. NEUROLOGIC: Denies history of numbness, tingling, tremor or weakness. PSYCHIATRIC: Denies anxiety, denies depression. ENDOCRINE: No history of heat or cold intolerance, polyuria or polydipsia. MUSCULOSKELETAL: Chronic lumbar and cervical back pain EXTREMITIES: Right knee pain and stiffness. Denies muscle weakness. Physical Exam Physical Exam General: Alert, Oriented X3, Cooperative, mild distress HEENT: PERRLA, EOMI Lungs: Clear to auscultation, Normal air movement Heart: RRR, no murmurs Cardiovascular: S1, S2 Abdomen: Normal bowel sounds, Soft, No tenderness Extremities: Right knee with well-healed surgical scar, without erythema or swelling. No clubbing, No cyanosis Musculoskeletal: Midline lumbar and cervical spinal tenderness. Skin: No rashes, No significant lesion Neuro: Normal speech, Normal tone, Sensation intact Psych/Mental Status: Mental status NL, Mood NL Vitals Vitals Vital Signs Date Time Temp Pulse Resp B/P (MAP) Pulse Ox O2 Delivery O2 Flow Rate FiO2 01/26/21 14:59 18 100 Room Air 01/26/21 13:32 98.0 76 97/56 (70) 98.0 Labs Labs Laboratory Tests Test 01/26/21 14:20 01/26/21 14:24 Urine Collection Type Unknown Urine Color Yellow Urine Clarity Clear Urine pH 5.5 (<5.0-8.0) Urine Specific [place] 1.020 (1.000-1.030) Urine Protein 30 mg/dL (NEG-TRACE) Urine Glucose (UA) Negative mg/dL (NEG) Urine Ketones (Stick) Negative mg/dL (NEG) Urine Blood Negative (NEG) Urine Nitrite Negative (NEG) Urine Bilirubin Negative (NEG) Urine Urobilinogen Dipstick 0.2 mg/dL (0.2 mg/dL) Urine Leukocyte Esterase Moderate (NEG) Urine RBC Rare /HPF (0-2) Urine WBC 20-40 /HPF (0-4) Urine Bacteria Few /HPF (0-FEW) Urine Hyaline Casts Many /HPF Urine Mucus Marked /LPF Urine Yeast Present /HPF White Blood Count 6.5 x10^3/uL (4.0-11.0) Red Blood Count 2.44 x10^6/uL (4.30-5.70) Hemoglobin 7.7 g/dL (13.0-17.5) Hematocrit 22.9 % (39.0-53.0) Mean Corpuscular Volume 94 fL (79-100) Mean Corpuscular Hemoglobin 32 pg (25-35) Mean Corpuscular Hemoglobin Concent 34 g/dL (31-37) Red Cell Distribution Width 15.8 % (11.5-14.5) Platelet Count 81 x10^3/uL (140-400) Neutrophils (%) (Auto) 62 % (31-73) Lymphocytes (%) (Auto) 32 % (24-48) Monocytes (%) (Auto) 5 % (0-9) Eosinophils (%) (Auto) 1 % (0-3) Basophils (%) (Auto) 1 % (0-3) Neutrophils # (Auto) 4.1 x10^3/uL (1.8-7.7) Lymphocytes # (Auto) 2.1 x10^3/uL (1.0-4.8) Monocytes # (Auto) 0.3 x10^3/uL (0.0-1.1) Eosinophils # (Auto) 0.0 x10^3/uL (0.0-0.7) Basophils # (Auto) 0.0 x10^3/uL (0.0-0.2) Erythrocyte Sedimentation Rate 31 (0-15) Sodium Level 138 mmol/L (136-145) Potassium Level 4.3 mmol/L (3.5-5.1) Chloride Level 101 mmol/L (98-107) Carbon Dioxide Level 23 mmol/L (21-32) Anion Gap 14 (6-14) Blood Urea Nitrogen 30 mg/dL (8-26) Creatinine 1.4 mg/dL (0.7-1.3) Estimated GFR (Cockcroft-Gault) 51.9 BUN/Creatinine Ratio 21 (6-20) Glucose Level 110 mg/dL (70-99) Calcium Level 8.7 mg/dL (8.5-10.1) Total Bilirubin 0.4 mg/dL (0.2-1.0) Aspartate Amino Transf (AST/SGOT) 14 U/L (15-37) Alanine Aminotransferase (ALT/SGPT) 22 U/L (16-63) Alkaline Phosphatase 74 U/L (46-116) C-Reactive Protein, Quantitative 2.1 mg/L (0-3.3) Total Protein 7.3 g/dL (6.4-8.2) Albumin 3.8 g/dL (3.4-5.0) Albumin/Globulin Ratio 1.1 (1.0-1.7) Laboratory Tests Test 01/26/21 14:20 01/26/21 14:24 Urine Collection Type Unknown Urine Color Yellow Urine Clarity Clear Urine pH 5.5 (<5.0-8.0) Urine Specific [place] 1.020 (1.000-1.030) Urine Protein 30 mg/dL (NEG-TRACE) Urine Glucose (UA) Negative mg/dL (NEG) Urine Ketones (Stick) Negative mg/dL (NEG) Urine Blood Negative (NEG) Urine Nitrite Negative (NEG) Urine Bilirubin Negative (NEG) Urine Urobilinogen Dipstick 0.2 mg/dL (0.2 mg/dL) Urine Leukocyte Esterase Moderate (NEG) Urine RBC Rare /HPF (0-2) Urine WBC 20-40 /HPF (0-4) Urine Bacteria Few /HPF (0-FEW) Urine Hyaline Casts Many /HPF Urine Mucus Marked /LPF Urine Yeast Present /HPF White Blood Count 6.5 x10^3/uL (4.0-11.0) Red Blood Count 2.44 x10^6/uL (4.30-5.70) Hemoglobin 7.7 g/dL (13.0-17.5) Hematocrit 22.9 % (39.0-53.0) Mean Corpuscular Volume 94 fL (79-100) Mean Corpuscular Hemoglobin 32 pg (25-35) Mean Corpuscular Hemoglobin Concent 34 g/dL (31-37) Red Cell Distribution Width 15.8 % (11.5-14.5) Platelet Count 81 x10^3/uL (140-400) Neutrophils (%) (Auto) 62 % (31-73) Lymphocytes (%) (Auto) 32 % (24-48) Monocytes (%) (Auto) 5 % (0-9) Eosinophils (%) (Auto) 1 % (0-3) Basophils (%) (Auto) 1 % (0-3) Neutrophils # (Auto) 4.1 x10^3/uL (1.8-7.7) Lymphocytes # (Auto) 2.1 x10^3/uL (1.0-4.8) Monocytes # (Auto) 0.3 x10^3/uL (0.0-1.1) Eosinophils # (Auto) 0.0 x10^3/uL (0.0-0.7) Basophils # (Auto) 0.0 x10^3/uL (0.0-0.2) Erythrocyte Sedimentation Rate 31 (0-15) Sodium Level 138 mmol/L (136-145) Potassium Level 4.3 mmol/L (3.5-5.1) Chloride Level 101 mmol/L (98-107) Carbon Dioxide Level 23 mmol/L (21-32) Anion Gap 14 (6-14) Blood Urea Nitrogen 30 mg/dL (8-26) Creatinine 1.4 mg/dL (0.7-1.3) Estimated GFR (Cockcroft-Gault) 51.9 BUN/Creatinine Ratio 21 (6-20) Glucose Level 110 mg/dL (70-99) Calcium Level 8.7 mg/dL (8.5-10.1) Total Bilirubin 0.4 mg/dL (0.2-1.0) Aspartate Amino Transf (AST/SGOT) 14 U/L (15-37) Alanine Aminotransferase (ALT/SGPT) 22 U/L (16-63) Alkaline Phosphatase 74 U/L (46-116) C-Reactive Protein, Quantitative 2.1 mg/L (0-3.3) Total Protein 7.3 g/dL (6.4-8.2) Albumin 3.8 g/dL (3.4-5.0) Albumin/Globulin Ratio 1.1 (1.0-1.7) Images Images CT LUMBAR SPINE W/CONTRAST Exam: CT lumbar spine with contrast INDICATION: Lower back pain, unable to void TECHNIQUE: Sequential axial images through the lumbar spine obtained without IV contrast. Sagittal and coronal reformatted images were reconstructed from the axial data and reviewed. Exposure: One or more of the following in the visualized dose reduction techniques were utilized for this examination: 1. Automated exposure control 2. Adjustment of the MA and/or KV according to patient size 3. Use of iterative of reconstructive technique Comparisons: MRI lumbar spine 01/20/2021 FINDINGS: Vertebral body heights are well-maintained. Grade 1 retrolisthesis of L3 on L4. Transitional anatomy is again noted with lumbarization of the S1 vertebral body. Fracture to the lumbar spine is not identified. Laminectomy changes at L2-L3 and at the transitional level are again seen. Redemonstration of endplate destructive changes at L3-L4 similar to the prior s tudy with associated adjacent sclerosis in the vertebral bodies.. This is not significantly changed when compared to the prior exam. At least moderate spinal canal stenosis at this level. There is severe degenerative change at L2-L3 causing moderate severe bilateral neural foraminal stenosis greater on the left. Additionally there is at least moderate spinal canal stenosis at L4-L5. Visualized paraspinal soft tissues are unremarkable. IMPRESSION: Redemonstrated changes of discitis osteomyelitis at L3-L4 with at least moderate spinal canal stenosis at that level similar to the prior study. VTE Prophylaxis Ordered VTE Prophylaxis Devices: No VTE Pharmacological Prophylaxi: Yes Assessment/Plan Assessment/Plan L2-L5 spinal canal stenosis with urinary retention History osteomyelitis DM2 Normocytic anemia Plan: Will admit patient with neurosurgery consultation MRI C-spine and T-spine pending Symptoms are concerning for cauda equina syndrome; maintain Coello catheter. Anticipate laminectomy on this hospital admission Will resume his current antibiotic treatment Hemoglobin & hematocrit 8.8 and 25.6 respectively (11/16/2020); hemoglobin 7.1 and hematocrit 22.9 on admission. Will continue to monitor and transfuse as needed. Resume home medications FEN - Cardiac diet PPX - Heparin FULL CODE Dispo - inpatient for above Advance Care Planning: Total time spent [id number] with patient 16 minutes in discussion with goals of care, comfort care, end-of-life care, pain management, code status; patient names his (Radha Padilla) as surrogate decision-maker. Justifications for Admission Other Justification Spinal epidural abscess VIKI HOWE MD Jan 26, 2021 17:57
[2021-01-26] MEDS ORDERED: ONDANSETRON PF 4 MG/2 ML VIAL. IVP PRN (18:15)
[2021-01-26] MEDS ORDERED: ZOLPIDEM 5 MG TABLET. PO PRN (18:15)
[2021-01-26] MEDS ORDERED: MAGNESIUM HYDROXIDE 2,400 MG/30 ML ORAL.SUSP. PO PRN (18:15)
[2021-01-26] MEDS ORDERED: IV DEXTROSE 5% 250 ML BAG. IV PRN (18:15)
[2021-01-26] MEDS ORDERED: MORPHINE SULFATE 2 MG/ML VIAL. IV PRN (18:15)
[2021-01-26] MEDS ORDERED: HYDROmorphone 2 MG TABLET PO PRN (18:15)
[2021-01-26] MEDS ORDERED: BISACODYL 10 MG SUPP.RECT. PR PRN (18:15)
[2021-01-26] MEDS ORDERED: HYDROcodone/APAP 5/325MG 1 TAB TABLET PO PRN (18:15)
[2021-01-26] MEDS ORDERED: MAG HYDROX/ALUMINUM HYD/SIMETH 30 ML ORAL.SUSP PO PRN (18:15)
[2021-01-26] MEDS ORDERED: CALCIUM CARBONATE 500 MG TAB.CHEW PO PRN (18:15)
[2021-01-26] MEDS ORDERED: DEXTROSE 50% 25 GM / 50ML DISP.SYRIN. IV PRN (18:15)
--- NOTE | 2021-01-26 18:33 | RAD ---
EXAM: AP views of the abdomen in upright and supine positions. CLINICAL INDICATION: Reason: can't urinate, constipation? / Spl. Instructions: / History: COMPARISON: None. FINDINGS and IMPRESSION: There is dilation of a segment of colon measuring up to 6.5 cm. This is of uncertain clinical signifi cance, obstruction or focal ileus could have this appearance. No abnormal small bowel dilatation. Con trast is seen within the bladder. Changes of the spine better assessed on dedicated CT. No free intra peritoneal gas. Electronically signed by: Mac Lee MD (01/26/2021 6:30 PM) ZECHARIAH
[2021-01-26 19:00] VITALS: BP 102/52
[2021-01-26] MEDS: HYDROmorphone 2 MG/ML VIAL IVP PRN (20:16)
[2021-01-26] MEDS ORDERED: CEPH750C9 PO (20:58)
[2021-01-26] MEDS ORDERED: CLON1TAB PO (20:58)
[2021-01-26] MEDS ORDERED: TRAZ-123 PO (20:58)
[2021-01-26] MEDS: traZODone 50 MG TABLET. PO SCH (21:43)
[2021-01-26] MEDS: clonazePAM 0.5 MG TABLET PO SCH (21:43)
[2021-01-26] MEDS: HEPARIN for SUB-Q USE 5,000 UNIT/ML VIAL. SQ SCH (21:49)
[2021-01-26 22:56] VITALS: BP 115/61
[2021-01-27] MEDS: HYDROmorphone 2 MG/ML VIAL IVP PRN ×2 (00:23→09:37)
[2021-01-27] MEDS: HEPARIN for SUB-Q USE 5,000 UNIT/ML VIAL. SQ SCH ×3 (06:00→22:00)
[2021-01-27 07:00] VITALS: BP 86/45
[2021-01-27 07:41] LABS: BASO % 1 % (0-3); EOS # 0.1 x10^3/uL (0.0-0.7); EOS % 2 % (0-3); HEMATOCRIT 22.4 % (39.0-53.0); HEMOGLOBIN 7.3 g/dL (13.0-17.5); LYMPH # 3.3 x10^3/uL (1.0-4.8); LYMPH % 54 % (24-48); MEAN CORPUSCULAR HEMOGLOBIN 31 pg (25-35); MEAN CORPUSCULAR HGB CONC 33 g/dL (31-37); MEAN CORPUSCULAR VOLUME 95 fL (79-100); MONO # 0.3 x10^3/uL (0.0-1.1); MONO % 4 % (0-9); NEUT # 2.4 x10^3/uL (1.8-7.7); NEUT % 39 % (31-73); PLATELET COUNT 82 x10^3/uL (140-400); RED BLOOD COUNT 2.35 x10^6/uL (4.30-5.70); RED CELL DISTRIBUTION WIDTH 15.9 % (11.5-14.5); WHITE BLOOD COUNT 6.2 x10^3/uL (4.0-11.0)
--- NOTE | 2021-01-27 07:55 | PDOC ---
[facility] PROGRESS NOTE Date of Service DOS: DATE: 01/27/21 TIME: 07:51 Chief Complaint Chief Complaint A/P: L2-L5 spinal canal stenosis with urinary retention History osteomyelitis DM2 Normocytic anemia Hypothyroidism Chronic pain Right total knee replacement History of femur fracture October 2020 osteomyelitis T11-12 Plan: Will resume his current antibiotic treatment Hemoglobin & hematocrit 8.8 and 25.6 respectively (11/16/2020); hemoglobin 7.1 and hematocrit 22.9 on admission. Will continue to monitor and transfuse as needed. Resume home medications FEN - Cardiac diet PPX - Heparin FULL CODE Dispo - inpatient for above Advance Care Planning: Total time spent [id number] with patient 16 minutes in discussion with goals of care, comfort care, end-of-life care, pain management, code status; patient names his (Radha Padilla) as surrogate decision-maker. History of Present Illness History of Present Illness Mr Byrnes is a 61-year-old male PMHx hypothyroidism, chronic pain, hernia, back surgery, right total knee replacement, and history of femur fracture and October 2020 osteomyelitis s/p cervical, thoracic, and lumbar epidural abscess drainage who presents to the ED with complaints of urinary retention. Patient states he has not urinated in the past 2 days prior to admit with associated bladder distention. He was recently admitted on 11/02/2020 for spinal epidural abscess, paraspinal cervical abscess, and osteomyelitis. He states he is currently on an antibiotic 3 times daily, but cannot member the name of this antibiotic. CT lumbar spine obtained in the ED showed redemonstrated changes of discitis osteomyelitis at L3-L4 with at least moderate spinal canal stenosis at that level L2-L5. Coello catheter was placed in the ED with reportedly 1000 mL urine output. Patient states he feels significantly better after having Coello placed, but is also reports chronic right knee pain. He has had right knee pain over this past 3 years since total knee replacement, but states his pain is worsened over the past 3 days causing him difficulty moving. States his knee is slightly more mobile after pain medication he received in the ED. Neurosurgery was consulted in the ED and requesting admission. Admitted patient for further medical management. Afebrile. Discussed with neurosurgery and ID his recent MRI is actually improved. He discloses to me that prior to his complicated hospital stay he had actually been weaned down from 150 mg daily of methadone for chronic pain to 10 mg 3 times daily and has had trouble having anyone to prescribe methadone for him. He continues to ask for pain medication regularly. Discussed complications of urinary retention related to chronic opioid therapy. Vitals/I&O Vitals/I&O: Vital Signs Date Time Temp Pulse Resp B/P (MAP) Pulse Ox O2 Delivery O2 Flow Rate FiO2 01/27/21 00:52 Room Air 01/26/21 22:56 98.3 84 18 115/61 (79) 98 98.3 I & O 01/26/21 01/26/21 01/27/21 15:00 23:00 07:00 Output Total 1150 ml Balance -1150 ml Physical Exam Lungs: Clear Labs Labs: Laboratory Tests Test 01/26/21 14:20 01/26/21 14:24 01/26/21 20:36 01/27/21 07:02 Urine Collection Type Unknown Urine Color Yellow Urine Clarity Clear Urine pH 5.5 (<5.0-8.0) Urine Specific [place] 1.020 (1.000-1.030) Urine Protein 30 mg/dL (NEG-TRACE) Urine Glucose (UA) Negative mg/dL (NEG) Urine Ketones (Stick) Negative mg/dL (NEG) Urine Blood Negative (NEG) Urine Nitrite Negative (NEG) Urine Bilirubin Negative (NEG) Urine Urobilinogen Dipstick 0.2 mg/dL (0.2 mg/dL) Urine Leukocyte Esterase Moderate (NEG) Urine RBC Rare /HPF (0-2) Urine WBC 20-40 /HPF (0-4) Urine Bacteria Few /HPF (0-FEW) Urine Hyaline Casts Many /HPF Urine Mucus Marked /LPF Urine Yeast Present /HPF White Blood Count 6.5 x10^3/uL (4.0-11.0) Red Blood Count 2.44 x10^6/uL (4.30-5.70) Hemoglobin 7.7 g/dL (13.0-17.5) Hematocrit 22.9 % (39.0-53.0) Mean Corpuscular Volume 94 fL (79-100) Mean Corpuscular Hemoglobin 32 pg (25-35) Mean Corpuscular Hemoglobin Concent 34 g/dL (31-37) Red Cell Distribution Width 15.8 % (11.5-14.5) Platelet Count 81 x10^3/uL (140-400) Neutrophils (%) (Auto) 62 % (31-73) Lymphocytes (%) (Auto) 32 % (24-48) Monocytes (%) (Auto) 5 % (0-9) Eosinophils (%) (Auto) 1 % (0-3) Basophils (%) (Auto) 1 % (0-3) Neutrophils # (Auto) 4.1 x10^3/uL (1.8-7.7) Lymphocytes # (Auto) 2.1 x10^3/uL (1.0-4.8) Monocytes # (Auto) 0.3 x10^3/uL (0.0-1.1) Eosinophils # (Auto) 0.0 x10^3/uL (0.0-0.7) Basophils # (Auto) 0.0 x10^3/uL (0.0-0.2) Erythrocyte Sedimentation Rate 31 (0-15) Sodium Level 138 mmol/L (136-145) Potassium Level 4.3 mmol/L (3.5-5.1) Chloride Level 101 mmol/L (98-107) Carbon Dioxide Level 23 mmol/L (21-32) Anion Gap 14 (6-14) Blood Urea Nitrogen 30 mg/dL (8-26) Creatinine 1.4 mg/dL (0.7-1.3) Estimated GFR (Cockcroft-Gault) 51.9 BUN/Creatinine Ratio 21 (6-20) Glucose Level 110 mg/dL (70-99) Calcium Level 8.7 mg/dL (8.5-10.1) Total Bilirubin 0.4 mg/dL (0.2-1.0) Aspartate Amino Transf (AST/SGOT) 14 U/L (15-37) Alanine Aminotransferase (ALT/SGPT) 22 U/L (16-63) Alkaline Phosphatase 74 U/L (46-116) C-Reactive Protein, Quantitative 2.1 mg/L (0-3.3) Total Protein 7.3 g/dL (6.4-8.2) Albumin 3.8 g/dL (3.4-5.0) Albumin/Globulin Ratio 1.1 (1.0-1.7) Glucose (Fingerstick) 116 mg/dL (70-99) 91 mg/dL (70-99) Assessment and Plan Assessmemt and Plan Problems Medical Problems: (1) Urinary retention Status: Acute Comment Review of Relevant I have reviewed the following items almas (where applicable) has been applied. Medications: Current Medications Medications (Trade) Dose Ordered Sig/Mary Jane Route PRN Reason Start Time Stop Time Status Last Admin Dose Admin Iohexol (Omnipaque 300 Mg/ml) 75 ml 1X ONCE IV 01/26/21 14:30 01/26/21 14:31 DC 01/26/21 14:54 Fentanyl Citrate (Fentanyl 2ml Vial) 50 mcg 1X ONCE IV 01/26/21 14:30 01/26/21 14:31 DC 01/26/21 14:59 Ondansetron HCl (Zofran) 4 mg 1X ONCE IV 01/26/21 14:30 01/26/21 14:31 DC 01/26/21 14:59 Morphine Sulfate (Morphine Sulfate) 2 mg PRN Q1HR PRN IV PAIN 01/26/21 18:15 01/26/21 19:27 Heparin Sodium (Porcine) (Heparin Sodium) 5,000 unit Q8HRS SQ 01/26/21 22:00 01/26/21 21:49 Hydromorphone HCl (Dilaudid) 2 mg PRN Q4HRS PRN IVP UNRESOLVED PAIN 01/26/21 18:15 01/27/21 00:23 Lorazepam (Ativan Inj) 2 mg PRN Q4HRS PRN IVP ANXIETY / AGITATION 01/26/21 18:15 01/27/21 00:23 Trazodone HCl (Desyrel) 75 mg HS PO 01/26/21 21:30 01/26/21 21:43 Clonazepam (KlonoPIN) 1 mg TID PO 01/26/21 21:30 01/26/21 21:43 Justifications for Admission Other Justification Lumbar spinal stenosis concerning for cauda equina syndrome WARD ESTEVEZ MD Jan 27, 2021 07:54
[2021-01-27] MEDS: INSULIN LISPRO 300 UNITS/3 ML VIAL. SQ SCH ×3 (08:00→17:00)
[2021-01-27 08:02] LABS: CALCIUM 8.7 mg/dL (8.5-10.1); CREATININE 1.8 mg/dL (0.7-1.3); GFR 38.8; POTASSIUM 4.4 mmol/L (3.5-5.1)
[2021-01-27] MEDS: clonazePAM 0.5 MG TABLET PO SCH (09:32)
[2021-01-27] MEDS: CEPHALEXIN 250 MG CAPSULE. PO SCH ×3 (09:32→21:57)
--- NOTE | 2021-01-27 09:51 | NUR ---
SW following. Discussed with RN, pt from home with family, room air, NPO. PT/OT ordered. Pt went to [facility] last admission and now is home with [facility]. [facility] stating pt is not safe to return home. ID and Neurosurgery following. RN mentioned possible laminectomy. SW will continue to follow.
--- NOTE | 2021-01-27 10:09 | RAD ---
EXAM: XR [id number] 1-2 VIEWS. HISTORY: Right knee pain, bacteremia. COMPARISON: 12/10/2020. FINDINGS: A tricompartmental arthroplasty is in expected alignment. There are prominent marginal oste ophyte remnants along all 3 compartments. Some heterotopic ossification along the margins of the medi al and lateral compartments is not clearly changed. A relatively bulky ossicle along the inferior daniele e of the patella measures 16 x 12 mm. There is no periprosthetic lucency. There is a trace joint effu jose roberto, decreased since the prior study. IMPRESSION: 1. No periprosthetic lucency. A trace joint effusion has decreased since the prior study. Electronically signed by: Edita Thomas MD (01/27/2021 10:07 AM) [id number]
[2021-01-27 11:00] VITALS: BP 101/52
[2021-01-27] MEDS: HYDROcodone/APAP 5/325MG 1 TAB TABLET PO PRN ×3 (11:28→20:01)
--- NOTE | 2021-01-27 11:41 | CONS ---
DATE OF CONSULTATION: 01/27/2021 REQUESTING PHYSICIAN: Dr. Bryant. REASON FOR CONSULTATION: Abnormal CT with a previous history of diskitis. HISTORY OF PRESENT ILLNESS: This is a 61-year-old gentleman who is known to us. In October and November, the patient was treated for MSSA bacteremia, high grade with extensive spinal epidural abscess from cervical to the lumbar spine and paraspinal abscesses. The patient had a surgery done by Dr. Shay and the patient was treated with long-term IV antibiotics and still on oral antibiotics. The patient says he was doing well the day before of his admission, walking. No problem with urinary retention, incontinence, or bowel incontinence. There is no radiation of pain, no tingling or numbness and then yesterday, he had sudden onset of back pain and he was unable to urinate, hence he was brought in. The patient required a Coello catheter. The patient did not have any fever, did not have any chest pain, shortness of breath, abdominal pain or any other complaints other than the back pain and unable to urinate. The patient is admitted. The patient underwent CAT scan of the lumbar spine, which was showing evidence for osteomyelitis and diskitis at L3-4 level, although patient did have an outpatient, on 01/20, MRI of the lumbar spine, which had shown interval improvement in the diskitis and osteomyelitis involving the lumbar spine, the enhancing epidural phlegmon has resolved. The patient is still on Keflex and nothing else. Sed rate is 31, which was 55 on 01/20 and the creatinine has gone up from 1.4 to 1.8, probably from the retention. PAST MEDICAL HISTORY: As I mentioned, MSSA bacteremia with extensive spinal infection. The patient had undergone decompression surgery and IR drainage. The patient also has hypertension, cardiac disorder, abdominal hernia surgery in the past, and hypothyroidism. SOCIAL HISTORY: Negative for smoking, alcohol use, or drug use. ALLERGIES: LISTED ALLERGIC TO MULTIPLE MEDICATIONS. No antibiotics. Reviewed. CURRENT MEDICATIONS: Reviewed. REVIEW OF SYSTEMS: As per HPI. All other systems reviewed are negative. PHYSICAL EXAMINATION: GENERAL: Alert, oriented gentleman, not in distress. VITAL SIGNS: Stable, afebrile. HEENT: NAD. NECK: Supple. No JVP, no lymphadenopathy. LUNGS: Clear. HEART: S1, S2 regular. ABDOMEN: Soft, nontender. No organomegaly. EXTREMITIES: No edema or cyanosis. SKIN: Unremarkable. NEUROLOGIC: The patient is alert, awake, and appropriate. No focal neurologic deficit. Does have a Coello catheter in place right now. LABORATORY DATA: White count is 6.2, hemoglobin 7.3, and platelets are 82,000. Sed rate is 31. BUN and creatinine are 33 and 1.8. Urinalysis showed 20-40 wbc's. On 01/20, the patient had a blood culture done, which was negative. IMPRESSION: 1. Back pain, most likely is musculoskeletal. 2. Urinary retention. 3. History of methicillin-susceptible Staphylococcus aureus bacteremia and extensive spinal infection in October. 4. Hypertension. RECOMMENDATIONS: I do not see the need for any antibiotics other than he is on Keflex. If Dr. Shay is planning to do a laminectomy and if he wants to ensure the spine is clean, radiologic aspiration can be done for culture, but clearly MRI has improved. There is no acute infection issue there. We will communicate with Dr. Shay, supportive care, pain control, PT, OT and then we will continue to follow. I have discussed with Dr. Bryant. Thank you very much Dr. Bryant for giving me an opportunity to participate in this patient's care. TOYA HAN: Pablo TID: [id number]
[2021-01-27] MEDS ORDERED: GADOTERATE 7.5 MMOL/15ML VIAL. IVP ONE (13:45)
--- NOTE | 2021-01-27 14:03 | PDOC ---
PROGRESS NOTES Date of Service DATE: 01/27/21 TIME: 13:55 Subjective Subjective Patient seen and examined at 1230 consulted for back pain, urinary retention c/o chronic back pain, urinary retention yesterday underwent C,T,L laminectomy in October for epidural abscess currently on Keflex per ID 01/26 CT lumbar spine with evidence for osteomyelitis and diskitis at L3-4 level, although patient did have an outpatient, on 01/20, MRI of the lumbar spine, which had shown interval improvement in the diskitis and osteomyelitis involving the lumbar spine, the enhancing epidural phlegmon has resolved. labs noted, sed rate improving I don't have a good explanation for his urinary retention will need rehab D/W Dr. Dacosta and with Dr. Vazquez Objective Objective Vital Signs Date Time Temp Pulse Resp B/P (MAP) Pulse Ox O2 Delivery O2 Flow Rate FiO2 01/27/21 11:28 Room Air 01/27/21 11:00 97.9 89 17 101/52 (68) 95 97.9 Intake and Output 01/27/21 07:00 Output Total 1150 ml Balance -1150 ml Output Urine Total 1150 ml Assessment Assessment Problems Medical Problems: (1) Urinary retention Status: Acute Comment Review of Relevant I have reviewed the following items almas (where applicable) has been applied. Labs Laboratory Tests Test 01/26/21 14:20 01/26/21 14:24 01/26/21 20:36 01/27/21 05:35 Urine Collection Type Unknown Urine Color Yellow Urine Clarity Clear Urine pH 5.5 (<5.0-8.0) Urine Specific [place] 1.020 (1.000-1.030) Urine Protein 30 mg/dL (NEG-TRACE) Urine Glucose (UA) Negative mg/dL (NEG) Urine Ketones (Stick) Negative mg/dL (NEG) Urine Blood Negative (NEG) Urine Nitrite Negative (NEG) Urine Bilirubin Negative (NEG) Urine Urobilinogen Dipstick 0.2 mg/dL (0.2 mg/dL) Urine Leukocyte Esterase Moderate (NEG) Urine RBC Rare /HPF (0-2) Urine WBC 20-40 /HPF (0-4) Urine Bacteria Few /HPF (0-FEW) Urine Hyaline Casts Many /HPF Urine Mucus Marked /LPF Urine Yeast Present /HPF White Blood Count 6.5 x10^3/uL (4.0-11.0) Red Blood Count 2.44 x10^6/uL (4.30-5.70) Hemoglobin 7.7 g/dL (13.0-17.5) Hematocrit 22.9 % (39.0-53.0) Mean Corpuscular Volume 94 fL (79-100) Mean Corpuscular Hemoglobin 32 pg (25-35) Mean Corpuscular Hemoglobin Concent 34 g/dL (31-37) Red Cell Distribution Width 15.8 % (11.5-14.5) Platelet Count 81 x10^3/uL (140-400) Neutrophils (%) (Auto) 62 % (31-73) Lymphocytes (%) (Auto) 32 % (24-48) Monocytes (%) (Auto) 5 % (0-9) Eosinophils (%) (Auto) 1 % (0-3) Basophils (%) (Auto) 1 % (0-3) Neutrophils # (Auto) 4.1 x10^3/uL (1.8-7.7) Lymphocytes # (Auto) 2.1 x10^3/uL (1.0-4.8) Monocytes # (Auto) 0.3 x10^3/uL (0.0-1.1) Eosinophils # (Auto) 0.0 x10^3/uL (0.0-0.7) Basophils # (Auto) 0.0 x10^3/uL (0.0-0.2) Erythrocyte Sedimentation Rate 31 (0-15) Sodium Level 138 mmol/L (136-145) 140 mmol/L (136-145) Potassium Level 4.3 mmol/L (3.5-5.1) 4.4 mmol/L (3.5-5.1) Chloride Level 101 mmol/L (98-107) 102 mmol/L (98-107) Carbon Dioxide Level 23 mmol/L (21-32) 29 mmol/L (21-32) Anion Gap 14 (6-14) 9 (6-14) Blood Urea Nitrogen 30 mg/dL (8-26) 33 mg/dL (8-26) Creatinine 1.4 mg/dL (0.7-1.3) 1.8 mg/dL (0.7-1.3) Estimated GFR (Cockcroft-Gault) 51.9 38.8 BUN/Creatinine Ratio 21 (6-20) Glucose Level 110 mg/dL (70-99) 91 mg/dL (70-99) Calcium Level 8.7 mg/dL (8.5-10.1) 8.7 mg/dL (8.5-10.1) Total Bilirubin 0.4 mg/dL (0.2-1.0) Aspartate Amino Transf (AST/SGOT) 14 U/L (15-37) Alanine Aminotransferase (ALT/SGPT) 22 U/L (16-63) Alkaline Phosphatase 74 U/L (46-116) C-Reactive Protein, Quantitative 2.1 mg/L (0-3.3) Total Protein 7.3 g/dL (6.4-8.2) Albumin 3.8 g/dL (3.4-5.0) Albumin/Globulin Ratio 1.1 (1.0-1.7) Glucose (Fingerstick) 116 mg/dL (70-99) Test 01/27/21 05:55 01/27/21 07:02 01/27/21 11:22 White Blood Count 6.2 x10^3/uL (4.0-11.0) Red Blood Count 2.35 x10^6/uL (4.30-5.70) Hemoglobin 7.3 g/dL (13.0-17.5) Hematocrit 22.4 % (39.0-53.0) Mean Corpuscular Volume 95 fL (79-100) Mean Corpuscular Hemoglobin 31 pg (25-35) Mean Corpuscular Hemoglobin Concent 33 g/dL (31-37) Red Cell Distribution Width 15.9 % (11.5-14.5) Platelet Count 82 x10^3/uL (140-400) Neutrophils (%) (Auto) 39 % (31-73) Lymphocytes (%) (Auto) 54 % (24-48) Monocytes (%) (Auto) 4 % (0-9) Eosinophils (%) (Auto) 2 % (0-3) Basophils (%) (Auto) 1 % (0-3) Neutrophils # (Auto) 2.4 x10^3/uL (1.8-7.7) Lymphocytes # (Auto) 3.3 x10^3/uL (1.0-4.8) Monocytes # (Auto) 0.3 x10^3/uL (0.0-1.1) Eosinophils # (Auto) 0.1 x10^3/uL (0.0-0.7) Basophils # (Auto) 0.0 x10^3/uL (0.0-0.2) Glucose (Fingerstick) 91 mg/dL (70-99) 113 mg/dL (70-99) Laboratory Tests Test 01/26/21 14:20 01/26/21 14:24 01/26/21 20:36 01/27/21 05:35 Urine Collection Type Unknown Urine Color Yellow Urine Clarity Clear Urine pH 5.5 (<5.0-8.0) Urine Specific [place] 1.020 (1.000-1.030) Urine Protein 30 mg/dL (NEG-TRACE) Urine Glucose (UA) Negative mg/dL (NEG) Urine Ketones (Stick) Negative mg/dL (NEG) Urine Blood Negative (NEG) Urine Nitrite Negative (NEG) Urine Bilirubin Negative (NEG) Urine Urobilinogen Dipstick 0.2 mg/dL (0.2 mg/dL) Urine Leukocyte Esterase Moderate (NEG) Urine RBC Rare /HPF (0-2) Urine WBC 20-40 /HPF (0-4) Urine Bacteria Few /HPF (0-FEW) Urine Hyaline Casts Many /HPF Urine Mucus Marked /LPF Urine Yeast Present /HPF White Blood Count 6.5 x10^3/uL (4.0-11.0) Red Blood Count 2.44 x10^6/uL (4.30-5.70) Hemoglobin 7.7 g/dL (13.0-17.5) Hematocrit 22.9 % (39.0-53.0) Mean Corpuscular Volume 94 fL (79-100) Mean Corpuscular Hemoglobin 32 pg (25-35) Mean Corpuscular Hemoglobin Concent 34 g/dL (31-37) Red Cell Distribution Width 15.8 % (11.5-14.5) Platelet Count 81 x10^3/uL (140-400) Neutrophils (%) (Auto) 62 % (31-73) Lymphocytes (%) (Auto) 32 % (24-48) Monocytes (%) (Auto) 5 % (0-9) Eosinophils (%) (Auto) 1 % (0-3) Basophils (%) (Auto) 1 % (0-3) Neutrophils # (Auto) 4.1 x10^3/uL (1.8-7.7) Lymphocytes # (Auto) 2.1 x10^3/uL (1.0-4.8) Monocytes # (Auto) 0.3 x10^3/uL (0.0-1.1) Eosinophils # (Auto) 0.0 x10^3/uL (0.0-0.7) Basophils # (Auto) 0.0 x10^3/uL (0.0-0.2) Erythrocyte Sedimentation Rate 31 (0-15) Sodium Level 138 mmol/L (136-145) 140 mmol/L (136-145) Potassium Level 4.3 mmol/L (3.5-5.1) 4.4 mmol/L (3.5-5.1) Chloride Level 101 mmol/L (98-107) 102 mmol/L (98-107) Carbon Dioxide Level 23 mmol/L (21-32) 29 mmol/L (21-32) Anion Gap 14 (6-14) 9 (6-14) Blood Urea Nitrogen 30 mg/dL (8-26) 33 mg/dL (8-26) Creatinine 1.4 mg/dL (0.7-1.3) 1.8 mg/dL (0.7-1.3) Estimated GFR (Cockcroft-Gault) 51.9 38.8 BUN/Creatinine Ratio 21 (6-20) Glucose Level 110 mg/dL (70-99) 91 mg/dL (70-99) Calcium Level 8.7 mg/dL (8.5-10.1) 8.7 mg/dL (8.5-10.1) Total Bilirubin 0.4 mg/dL (0.2-1.0) Aspartate Amino Transf (AST/SGOT) 14 U/L (15-37) Alanine Aminotransferase (ALT/SGPT) 22 U/L (16-63) Alkaline Phosphatase 74 U/L (46-116) C-Reactive Protein, Quantitative 2.1 mg/L (0-3.3) Total Protein 7.3 g/dL (6.4-8.2) Albumin 3.8 g/dL (3.4-5.0) Albumin/Globulin Ratio 1.1 (1.0-1.7) Glucose (Fingerstick) 116 mg/dL (70-99) Test 01/27/21 05:55 01/27/21 07:02 01/27/21 11:22 White Blood Count 6.2 x10^3/uL (4.0-11.0) Red Blood Count 2.35 x10^6/uL (4.30-5.70) Hemoglobin 7.3 g/dL (13.0-17.5) Hematocrit 22.4 % (39.0-53.0) Mean Corpuscular Volume 95 fL (79-100) Mean Corpuscular Hemoglobin 31 pg (25-35) Mean Corpuscular Hemoglobin Concent 33 g/dL (31-37) Red Cell Distribution Width 15.9 % (11.5-14.5) Platelet Count 82 x10^3/uL (140-400) Neutrophils (%) (Auto) 39 % (31-73) Lymphocytes (%) (Auto) 54 % (24-48) Monocytes (%) (Auto) 4 % (0-9) Eosinophils (%) (Auto) 2 % (0-3) Basophils (%) (Auto) 1 % (0-3) Neutrophils # (Auto) 2.4 x10^3/uL (1.8-7.7) Lymphocytes # (Auto) 3.3 x10^3/uL (1.0-4.8) Monocytes # (Auto) 0.3 x10^3/uL (0.0-1.1) Eosinophils # (Auto) 0.1 x10^3/uL (0.0-0.7) Basophils # (Auto) 0.0 x10^3/uL (0.0-0.2) Glucose (Fingerstick) 91 mg/dL (70-99) 113 mg/dL (70-99) Medications Current Medications Iohexol (Omnipaque 300 Mg/ml) 75 ml 1X ONCE IV Last administered on 01/26/21at 14:54; Start 01/26/21 at 14:30; Stop 01/26/21 at 14:31; Status DC Info (CONTRAST GIVEN -- Rx MONITORING) 1 each PRN DAILY PRN MC SEE COMMENTS; Start 01/26/21 at 14:30; Stop 01/28/21 at 14:29 Fentanyl Citrate (Fentanyl 2ml Vial) 50 mcg 1X ONCE IV Last administered on 01/26/21at 14:59; Start 01/26/21 at 14:30; Stop 01/26/21 at 14:31; Status DC Ondansetron HCl (Zofran) 4 mg 1X ONCE IV Last administered on 01/26/21at 14:59; Start 01/26/21 at 14:30; Stop 01/26/21 at 14:31; Status DC Insulin Human Lispro (HumaLOG) 0-7 UNITS TIDWMEALS SQ ; Start 01/27/21 at 08:00 Dextrose (Dextrose 50%-Water Syringe) 12.5 gm PRN Q15MIN PRN IV SEE COMMENTS; Start 01/26/21 at 18:15 Dextrose (Iv Dextrose 5%) 250 ml PRN Q15MIN PRN IV SEE COMMENTS; Start 01/26/21 at 18:15; Status UNV Ondansetron HCl (Zofran) 4 mg PRN Q6HRS PRN IVP NAUSEA/VOMITING; Start 01/26/21 at 18:15 Al Hydroxide/Mg Hydroxide (Mylanta Plus Xs) 30 ml PRN Q3HRS PRN PO HEARTBURN / GAS; Start 01/26/21 at 18:15 Calcium Carbonate/ Glycine (Tums) 500 mg PRN Q3HRS PRN PO UPSET STOMACH; Start 01/26/21 at 18:15 Zolpidem Tartrate (Ambien) 5 mg PRN QHS PRN PO INSOMNIA, MAY REPEAT IN 1HR; Start 01/26/21 at 18:15 Morphine Sulfate (Morphine Sulfate) 2 mg PRN Q1HR PRN IV MODERATE PAIN Last administered on 01/26/21at 19:27; Start 01/26/21 at 18:15 Acetaminophen/ Hydrocodone Bitart (Lortab 5/325) 1 tab PRN Q4HRS PRN PO MILD PAIN 1-3; Start 01/26/21 at 18:15 Acetaminophen/ Hydrocodone Bitart (Lortab 5/325) 2 tab PRN Q4HRS PRN PO MODERATE PAIN Last administered on 01/27/21at 11:28; Start 01/26/21 at 18:15 Hydromorphone HCl (Dilaudid) 2 mg PRN Q4HRS PRN PO MODERATE PAIN, 2ND CHOICE; Start 01/26/21 at 18:15 Hydromorphone HCl (Dilaudid) 4 mg PRN Q4HRS PRN PO SEVERE PAIN; Start 01/26/21 at 18:15 Acetaminophen (Tylenol) 650 mg PRN Q6HRS PRN PO Headaches, Temp > 101.5F; Start 01/26/21 at 18:15 Magnesium Hydroxide (Milk Of Magnesia) 2,400 mg PRN Q12HR PRN PO CONSTIPATION; Start 01/26/21 at 18:15 Bisacodyl (Dulcolax Supp) [address] CONSTIPATION; Start 01/26/21 at 18:15 Heparin Sodium (Porcine) (Heparin Sodium) 5,000 unit Q8HRS SQ Last administered on 01/26/21at 21:49; Start 01/26/21 at 22:00 Hydromorphone HCl (Dilaudid) 2 mg PRN Q4HRS PRN IVP SEVERE PAIN Last administered on 01/27/21at 09:37; Start 01/26/21 at 18:15 Lorazepam (Ativan Inj) 2 mg PRN Q4HRS PRN IVP ANXIETY / AGITATION Last administered on 01/27/21at 00:23; Start 01/26/21 at 18:15 Trazodone HCl (Desyrel) 75 mg HS PO Last administered on 01/26/21at 21:43; Start 01/26/21 at 21:30 Clonazepam (KlonoPIN) 1 mg TID PO Last administered on 01/27/21at 09:32; Start 01/26/21 at 21:30; Stop 01/27/21 at 13:36; Status DC Cephalexin HCl (Keflex) 500 mg TID PO Last administered on 01/27/21at 09:32; Start 01/27/21 at 09:00 Lactobacillus Rhamnosus (Culturelle) 1 cap BID PO ; Start 01/27/21 at 21:00 Clonazepam (KlonoPIN) 1 mg PRN TID PRN PO anxiety; Start 01/27/21 at 13:45 Gadoterate Meglumine (Clariscan) 17 ml 1X ONCE IVP ; Start 01/27/21 at 13:45; Stop 01/27/21 at 13:49; Status DC Active Scripts Active Percocet 5-325 Mg Tablet (Oxycodone/Acetaminophen) 1 Each Tablet 1 Tab PO PRN Q6HRS PRN 5 Days Metformin Hcl Er (Metformin Hcl) 500 Mg Tab.er.24h 500 Mg PO DAILYWBKFT 30 Days Reported Klonopin (Clonazepam) 1 Mg Tablet 1 Tab PO TID Trazodone Hcl 100 Mg Tablet 75 Mg PO HS Keflex (Cephalexin) 750 Mg Capsule 500 Mg PO TID Ferrous Sulfate 325 Mg Tablet 1 Tab PO BID Cyclobenzaprine Hcl 10 Mg Tablet 10 Mg PO HS Nifedipine Er (Nifedipine) 30 Mg Tablet.er 30 Mg PO HS Atenolol 50 Mg Tablet 50 Mg PO DAILY Losartan Potassium 100 Mg Tablet 100 Mg PO DAILY16 Colace (Docusate Sodium) 100 Mg Capsule 100 Mg PO DAILY Gabapentin 600 Mg Tablet 1,800 Mg PO BID Levothyroxine Sodium 200 Mcg Tablet 200 Mcg PO DAILYAC Hydrochlorothiazide Tablet (Hydrochlorothiazide) 25 Mg Tablet 50 Mg PO DAILY Vitals/I & O Vital Sign - Last 24 Hours 01/26/21 01/26/21 01/26/21 01/26/21 14:07 14:37 14:53 14:59 Pulse 73 69 70 Resp 18 B/P (MAP) 96/54 (68) 97/53 (68) 98/54 (69) Pulse Ox 99 97 96 100 O2 Delivery Room Air Room Air Room Air Room Air 01/26/21 01/26/21 01/26/21 01/26/21 15:23 15:53 16:23 16:53 Pulse 72 72 74 76 B/P (MAP) 92/54 (67) 93/51 (65) 99/54 (69) 100/55 (70) Pulse Ox 96 95 96 97 O2 Delivery Room Air Room Air Room Air Room Air 01/26/21 01/26/21 01/26/21 01/26/21 17:23 17:53 18:23 18:53 Pulse 76 80 72 77 B/P (MAP) 109/56 (73) 104/64 (77) 116/60 (78) 101/54 (70) Pulse Ox 98 98 100 100 O2 Delivery Room Air Room Air Room Air Room Air 01/26/21 01/26/21 01/26/21 01/26/21 19:00 19:27 19:40 20:15 Temp 98.3 98.3 Pulse 78 Resp 18 B/P (MAP) 102/52 (69) Pulse Ox 99 97 O2 Delivery Room Air Room Air Room Air 01/26/21 01/26/21 01/26/21 01/27/21 20:16 20:46 22:56 00:23 Temp 98.3 98.3 Pulse 84 Resp 18 B/P (MAP) 115/61 (79) Pulse Ox 98 O2 Delivery Room Air Room Air Room Air Room Air 01/27/21 01/27/21 01/27/21 01/27/21 00:52 07:00 08:00 09:37 Temp 97.7 97.7 Pulse 75 Resp 17 B/P (MAP) 86/45 (59) Pulse Ox 92 O2 Delivery Room Air Room Air Room Air Room Air 01/27/21 01/27/21 01/27/21 10:07 11:00 11:28 Temp 97.9 97.9 Pulse 89 Resp 17 B/P (MAP) 101/52 (68) Pulse Ox 95 O2 Delivery Room Air Room Air Room Air Intake and Output 01/26/21 01/26/21 01/27/21 15:00 23:00 07:00 Output Total 1150 ml Balance -1150 ml Justifications for Admission Other Justification Lumbar spinal stenosis concerning for cauda equina syndrome ZEESHAN TANNER MD Jan 27, 2021 14:03
[2021-01-27 15:00] VITALS: BP 111/64
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
--- NOTE | 2021-01-27 16:11 | RAD ---
EXAM: Cervical and thoracic spine MRI without and with contrast. HISTORY: Urinary retention. TECHNIQUE: Multiplanar, multisequence magnetic resonance imaging of the cervical and thoracic spine w as performed without and with contrast. COMPARISON: Lumbar MRI performed 01/20/2021. Thoracic and cervical spine MRI dated 12/30/2020 FINDINGS: Cervical spine: There is mild cervical curvature due to thoracic scoliosis. There is minimal anteroli sthesis of C7 on T1 and T1 on T2. There is degenerative endplate remodeling with osteophytosis primar david at the lower cervical levels. There are few endplate Schmorl's nodes. There is no acute fracture. There has been interval decrease in epidural enhancement at the cervical levels primarily along the d orsal aspects of C4-T1. This measures approximately 2 mm in thickness, compared to a prior measuremen t of 4 mm. There are laminotomy changes at C3. There is scar/granulation tissue within the laminectom y decompression space. There is extensive edema within the upper thoracic back subcutaneous fat and u nderlying musculature, described in detail below. There is slight increased ventral epidural enhancement centered at the T1-T2 disc space, measuring ap proximately 3 mm in thickness and 2.1 cm in length. There is edema involving the bilateral C7-T1 face t joints and surrounding soft tissues, similar compared to the prior study. There is a new 7 x 7 x 3 mm peripherally enhancing fluid collection along the left ligamentum flavum at this level and there a re new small peripherally enhancing fluid collections posterior to the facet joints at this level ricardo suring approximately 5 mm on the right and 12 mm on the left. These may be due to tiny abscesses give n a history of epidural abscess and the extensive surrounding inflammatory changes at this level. There is deformation of the cervical spinal cord at multiple levels due to significant central canal stenosis. There is no convincing spinal cord edema or myelomalacia. The skull base is unremarkable. At C2-C3, there is mild right facet arthropathy. There is no stenosis. At C3-C4, there is a shallow right paracentral to lateral recess disc protrusion superimposed on a di sc bulge and endplate remodeling. There is mild bilateral facet arthropathy. There is buckling of the ligamentum flavum. There is mild left foraminal stenosis. There are laminectomy changes. At C4-C5, there is a shallow broad-based right paracentral disc protrusion superimposed on a disc bul ge and endplate osteophytosis. There is moderate bilateral facet arthropathy. There is uncovertebral arthropathy. There is buckling of the ligamentum flavum. There is moderate to severe left foraminal s tenosis. There is deformation of the spinal cord and severe stenosis measuring 6.3 mm in anterior pos terior dimension At C5-C6, there is a broad-based posterior central disc protrusion and 4 mm inferior extrusion superi mposed on a disc bulge and endplate osteophytosis. There is mild right and moderate left facet arthro caroline. There is uncovertebral arthropathy. There is mild right and moderate left foraminal stenosis. There is severe central canal stenosis measuring 6.1 mm in anterior posterior dimension. At C6-C7, there is a disc bulge and endplate osteophytosis. There is mild right and moderate left fac et arthropathy. There is uncovertebral arthropathy. There is buckling of the ligamentum flavum. There is moderate right foraminal stenosis. There is mild central canal stenosis measuring 8.4 mm in anter ior posterior dimension. At C7-T1, there is a disc bulge. There is moderate facet arthropathy. There are small fluid collectio ns posterior to the facet joints and within the left dorsal central canal along the ligamentum flavum . There is a small amount of fluid within the facet joints. There is mild central canal stenosis donato uring 8.6 mm in anterior posterior dimension. Thoracic spine: There are laminotomy changes at T2 and T3. There is thoracic scoliosis. There is mini mal anterolisthesis at the upper thoracic levels. There is multilevel endplate remodeling. There are few endplate Schmorl's nodes. There are few osseous hemangiomas. There is chronic mild anterior wedgi ng of T12. There is no acute or subacute fracture. There is edema associated with suspected atypical hemangiomas involving the left posterior inferior aspect of T11 and the left T11 pedicle. There is al so mild edema involving a few smaller suspected atypical hemangiomas. No convincing osseous metastasi s is seen. There is edema within the posterior upper back soft tissues at the level of upper thoracic levels to the surgery, likely postoperative or due to denervation edema. There is enhancing scar/gra nulation tissue in this location. This exerts no mass effect on the thecal sac. There has been comple te to near complete resolution of previously demonstrated epidural enhancement from the T5 level to t he T11 level. No new suspicious enhancing epidural collection is seen. At T6-T7, there is a shallow left paracentral to lateral recess disc protrusion superimposed on left posterior lateral predominant endplate osteophytosis. There is mild left facet arthropathy. There is mild left foraminal stenosis. At T8-T9, there is a shallow left paracentral disc protrusion. There is no stenosis. At T9-T10, there is a shallow left paracentral to lateral recess disc protrusion. There is mild right facet arthropathy. There is mild right foraminal stenosis. At T10-T11, there is a disc bulge. There is mild bilateral facet arthropathy. There is mild bilateral foraminal stenosis. At T11-T12, there is a shallow left paracentral disc protrusion and annular tear. There is mild bilat eral facet arthropathy. There is no stenosis. IMPRESSION: 1. Complete to near complete resolution of previously demonstrated epidural enhancement consistent wi th abscess throughout the and majority of the thoracic levels, consistent with interval treatment res ponse. There is a new small enhancing ventral epidural collection measuring 2 mm in thickness at T1-T 2 which is likely infectious given extensive adjacent marrow edema involving the posterior elements a nd surrounding soft tissues at C7-T1. There are new small peripherally enhancing fluid collections po sterior to the facet joints at this level and within the left dorsal central canal which may be due t o superinfected synovial cysts or abscesses. 2. Significant interval decrease in previously demonstrated epidural enhancement at the cervical leve ls, consistent with interval treatment response. 3. Laminectomy changes at C3 and T2 and T3 with overlying edema and enhancing scar/granulation tissue . This exerts no mass effect on the thecal sac. 4. Severe multilevel degenerative change involving the cervical spine, resulting in significant steno sis at the aforementioned levels. The central canal stenosis is severe at C4-C5, C5-C6 and C6-C7, res ulting in deformation of the cervical spinal cord. No convincing cord edema or myelomalacia is seen. 5. Mild multilevel degenerative change involving the thoracic spine, resulting in foraminal stenosis at the aforementioned levels. No thoracic central canal stenosis is seen. 6. Please refer to the separate report for the recent lumbar spine MRI performed 01/20/2021 for additio nal findings. Electronically signed by: Alycia Kaur MD (01/27/2021 4:09 PM) [id number]
[2021-01-27] MEDS ORDERED: BISACODYL 5 MG TABLET.DR. PO PRN (16:15)
[2021-01-27] MEDS ORDERED: POLYETHYLENE GLYCOL 3350 17 GM PACKET. PO SCH (16:15)
[2021-01-27] MEDS ORDERED: SENNOSIDES/DOCUSATE 8.6/50MG TABLET. PO SCH (16:15)
[2021-01-27 19:00] VITALS: BP 116/61
[2021-01-27] MEDS: traZODone 50 MG TABLET. PO SCH (21:56)
[2021-01-27] MEDS: LACTOBACILLUS RHAMNOSUS GG 1 CAPSULE. PO SCH (21:56)
[2021-01-27] MEDS: TAMSULOSIN 0.4 MG CAP.ER.24H. PO SCH (21:56)
[2021-01-27] MEDS: SENNOSIDES/DOCUSATE 8.6/50MG TABLET. PO SCH (21:56)
[2021-01-27 23:00] VITALS: BP 114/62
[2021-01-28] MEDS: HYDROcodone/APAP 5/325MG 1 TAB TABLET PO PRN ×2 (00:31→04:39)
[2021-01-28 03:00] VITALS: BP 138/70
--- NOTE | 2021-01-28 04:25 | CONS ---
DATE OF CONSULTATION: 01/27/2021 ATTENDING PHYSICIAN: Dr. Irvin Anderson. REASON FOR CONSULTATION: The patient was seen at the request of Dr. Vazquez for rehab evaluation. HISTORY OF PRESENT ILLNESS: This is a 61-year-old right-handed male with known osteomyelitis, admitted through the Emergency Room on 01/26/2021 with urinary retention for about 2 days with associated bladder distention. He was hospitalized on 11/02/2020 with the spinal epidural abscess, paraspinal cervical abscess and osteomyelitis. He has been on oral antibiotic for about 3 months. The patient had CT scan done in the Emergency Room, which revealed diskitis and osteomyelitis at L3-L4 with at least moderate spinal canal stenosis at that level and also from L2 to L5. He felt better after indwelling Coello catheter was placed in the Emergency Room and reportedly 1000 mL of urine removed. The patient also admits to chronic right knee joint pain. He had a right total knee arthroplasty done about [address] Pendleton, last time without any significant help. He admits to chronic lower back pain. He denies any significant neck pain at this time. He denies any radiation of pain to the extremities or any trouble with numbness or tingling sensation in the extremities. He admits to no bowel movement for about 2 days. The patient had MRI scan done of his lumbar vertebrae last week, which revealed improving changes in the lumbar area when compared to prior studies. He apparently was discharged to home about 3 weeks ago after senior living care unit placement for a while for continued IV antibiotics. The patient lives at home with his family and had stairs to manage. The patient also with known hypertension, previous pneumonia, hemorrhoids, anxiety, addiction, depression, schizophrenia, hypothyroidism. Dr. Combs used to give him methadone and also Dr. Sravan Tang, but he tried to stop giving it to him, and apparently he used to take methadone 50 mg 3 times a day, and right now, he has been taking 10 mg 3 times a day if available. The patient is status post hernia repair, cervical laminectomy, coronary artery disease and heart disease. SOCIAL HISTORY: He quit smoking in the past. Also, he is a former heavy alcohol user, last drink about 2 years ago. ALLERGIES: HE IS KNOWN ALLERGIC TO DULOXETINE, ESCITALOPRAM, FENTANYL, FLUOXETINE, METAXALONE, OXYCODONE, PREGABALIN AND TRAMADOL. IMAGING STUDIES: The patient had MRI scan of his cervical and thoracic spine done this afternoon, which revealed cervical spinal stenosis at C4-C5 and C5-C6 levels with multilevel degenerative joint disease and some minor disk degenerative changes in the lower thoracic vertebrae. X-ray of right knee reveals trace joint effusion, marginal osteophytes, tricompartmental arthroplasty, he is in expected alignment, a relatively bulky ossicle along the inferior pole of the patella measuring 16 x 12 mm, some heterotopic ossification along the margins of the medial and lateral compartment, he is not clearly changed from the last study. CT scan of lumbar vertebrae done on 01/26/2021 revealed grade 1 retrolisthesis of L3 on L4; lumbarization of S1 vertebral body; laminectomy changes at L2-L3; endplate destructive changes at L3-L4, similar to the prior study, with associated adjacent sclerosis in the vertebral bodies, no significant change since the prior examination, at least moderate spinal canal stenosis at this level; severe degenerative changes at L2-L3, causing [id number] bilateral neural foraminal stenosis, greatest on the left side; also, at least moderate spinal canal stenosis at L4-L5. PHYSICAL EXAMINATION: GENERAL: The patient on physical examination today revealed a middle-aged male. He is alert, oriented to time, place, person and circumstance, follows commands appropriately. The patient is cooperative during the examination. MUSCULOSKELETAL: He had well-healed cervical laminectomy scar and right knee arthroplasty scar. He had tenderness to palpation over sacroiliac joint area. Straight leg raising test is negative bilaterally. He had overall 5/5 grade muscle strength in his extremities. Deep tendon reflexes are 1-2+ and symmetrical with absent ankle jerks and he had equal perception of touch and pinprick sensation bilaterally. He had pain-free range of motion of both hip joints. He had mild crepitus on range of motion of his left knee joint without any obvious knee joint effusion. The patient seems to be independent with bed mobility and transfers, and he made a few steps with a roller walker with physical therapy today. ASSESSMENT: A middle-aged male with chronic lower back pain, status post lumbar spine surgery for treatment of epidural abscess with associated degenerative disk disease and degenerative joint disease changes in the lumbar vertebrae with associated spondylolisthesis and [id number] central canal and neural foraminal compromise and degenerative disk disease and degenerative joint disease of cervical vertebrae, status post cervical decompression laminectomy in the past with associated central spinal stenosis at C4-C5 and C5-C6, no clinical evidence of ongoing cervical radiculopathy or cervical spinal stenosis other than recent-onset urinary retention in a patient, who still had prostate gland intact, degenerative joint disease of left knee without any pain, chronic right knee pain, status post multiple right knee arthroplasties in the past, clinical evidence of peripheral neuropathy. The patient also with known hypertension, anxiety, depression, schizophrenia, hypothyroidism. RECOMMENDATION: I agree with the plan for physical therapy and occupational therapy, home with home health followup when medically stable, to give a trial at voiding in the next day or so, to also consider lumbar support brace and right knee brace for use while up at the time of discharge. Dr. Vazquez and Dr. Hanson, I appreciate asking me to participate in the care of this interesting patient. I will be glad to see him for followup with you and on an as-needed basis. JOHAN/DANIEL/FER DR: Pedro TID: [id number] NARA
[2021-01-28 05:05] LABS: BASO % 0 % (0-3); EOS # 0.1 x10^3/uL (0.0-0.7); EOS % 2 % (0-3); HEMATOCRIT 22.7 % (39.0-53.0); HEMOGLOBIN 7.5 g/dL (13.0-17.5); LYMPH # 1.6 x10^3/uL (1.0-4.8); LYMPH % 25 % (24-48); MEAN CORPUSCULAR HEMOGLOBIN 31 pg (25-35); MEAN CORPUSCULAR HGB CONC 33 g/dL (31-37); MEAN CORPUSCULAR VOLUME 94 fL (79-100); MONO # 0.3 x10^3/uL (0.0-1.1); MONO % 5 % (0-9); NEUT # 4.4 x10^3/uL (1.8-7.7); NEUT % 69 % (31-73); PLATELET COUNT 81 x10^3/uL (140-400); RED CELL DISTRIBUTION WIDTH 15.6 % (11.5-14.5); WHITE BLOOD COUNT 6.4 x10^3/uL (4.0-11.0)
[2021-01-28] MEDS: HEPARIN for SUB-Q USE 5,000 UNIT/ML VIAL. SQ SCH ×3 (05:44→22:37)
[2021-01-28 05:45] LABS: CALCIUM 8.6 mg/dL (8.5-10.1); CREATININE 1.2 mg/dL (0.7-1.3)
[2021-01-28 07:00] VITALS: BP 141/76
--- NOTE | 2021-01-28 07:28 | PDOC ---
[facility] PROGRESS NOTE Date of Service DOS: DATE: 01/28/21 TIME: 07:28 Chief Complaint Chief Complaint A/P: L2-L5 spinal canal stenosis with urinary retention History osteomyelitis DM2 Normocytic anemia Hypothyroidism Chronic pain Right total knee replacement History of femur fracture October 2020 osteomyelitis T11-12 - MRI changes in cervical and thoracic spine likely needs IV treatment Plan: Will resume his current antibiotic treatment Hemoglobin & hematocrit 8.8 and 25.6 respectively (11/16/2020); hemoglobin 7.1 and hematocrit 22.9 on admission. Will continue to monitor and transfuse as needed. Resume home medications FEN - Cardiac diet PPX - Heparin FULL CODE Dispo - inpatient for above Advance Care Planning: Total time spent [id number] with patient 16 minutes in discussion with goals of care, comfort care, end-of-life care, pain management, code status; patient names his (Radha Padilla) as surrogate decision-maker. History of Present Illness History of Present Illness Mr Byrnes is a 61-year-old male PMHx hypothyroidism, chronic pain, hernia, back surgery, right total knee replacement, and history of femur fracture and October 2020 osteomyelitis s/p cervical, thoracic, and lumbar epidural abscess drainage who presents to the ED with complaints of urinary retention. Patient states he has not urinated in the past 2 days prior to admit with associated bladder distention. He was recently admitted on 11/02/2020 for spinal epidural abscess, paraspinal cervical abscess, and osteomyelitis. He states he is currently on an antibiotic 3 times daily, but cannot member the name of this antibiotic. CT lumbar spine obtained in the ED showed redemonstrated changes of discitis osteomyelitis at L3-L4 with at least moderate spinal canal stenosis at that level L2-L5. Coello catheter was placed in the ED with reportedly 1000 mL urine output. Patient states he feels significantly better after having Coello placed, but is also reports chronic right knee pain. He has had right knee pain over this past 3 years since total knee replacement, but states his pain is worsened over the past 3 days causing him difficulty moving. States his knee is slightly more mobile after pain medication he received in the ED. Neurosurgery was consulted in the ED and requesting admission. Admitted patient for further medical management. 01/27: Afebrile. Discussed with neurosurgery and ID his recent MRI is actually improved. He discloses to me that prior to his complicated hospital stay he had actually been weaned down from 150 mg daily of methadone for chronic pain to 10 mg 3 times daily and has had trouble having anyone to prescribe methadone for him. He continues to ask for pain medication regularly. Discussed complications of urinary retention related to chronic opioid therapy. Afebrile. Platelets still low normal still low. Coello out today start on methadone per PMR. MRI reviewed with ID and neurosurgery, given MRI findings and thoracic and cervical areas changed likely persistent infection. Voiding trial today. Vitals/I&O Vitals/I&O: Vital Signs Date Time Temp Pulse Resp B/P (MAP) Pulse Ox O2 Delivery O2 Flow Rate FiO2 01/28/21 07:00 98.4 93 20 141/76 (97) 96 Room Air 98.4 I & O 01/27/21 01/27/21 01/28/21 15:00 23:00 07:00 Intake Total 300 ml 600 ml 500 ml Output Total 1150 ml Balance 300 ml 600 ml -650 ml Physical Exam General: Alert, Cooperative Lungs: Clear Labs Labs: Laboratory Tests Test 01/27/21 11:22 01/27/21 16:44 01/27/21 21:43 01/28/21 04:30 Glucose (Fingerstick) 113 mg/dL (70-99) 140 mg/dL (70-99) 104 mg/dL (70-99) White Blood Count 6.4 x10^3/uL (4.0-11.0) Red Blood Count 2.40 x10^6/uL (4.30-5.70) Hemoglobin 7.5 g/dL (13.0-17.5) Hematocrit 22.7 % (39.0-53.0) Mean Corpuscular Volume 94 fL (79-100) Mean Corpuscular Hemoglobin 31 pg (25-35) Mean Corpuscular Hemoglobin Concent 33 g/dL (31-37) Red Cell Distribution Width 15.6 % (11.5-14.5) Platelet Count 81 x10^3/uL (140-400) Neutrophils (%) (Auto) 69 % (31-73) Lymphocytes (%) (Auto) 25 % (24-48) Monocytes (%) (Auto) 5 % (0-9) Eosinophils (%) (Auto) 2 % (0-3) Basophils (%) (Auto) 0 % (0-3) Neutrophils # (Auto) 4.4 x10^3/uL (1.8-7.7) Lymphocytes # (Auto) 1.6 x10^3/uL (1.0-4.8) Monocytes # (Auto) 0.3 x10^3/uL (0.0-1.1) Eosinophils # (Auto) 0.1 x10^3/uL (0.0-0.7) Basophils # (Auto) 0.0 x10^3/uL (0.0-0.2) Sodium Level 141 mmol/L (136-145) Potassium Level 4.0 mmol/L (3.5-5.1) Chloride Level 103 mmol/L (98-107) Carbon Dioxide Level 28 mmol/L (21-32) Anion Gap 10 (6-14) Blood Urea Nitrogen 33 mg/dL (8-26) Creatinine 1.2 mg/dL (0.7-1.3) Estimated GFR (Cockcroft-Gault) 62.0 Glucose Level 106 mg/dL (70-99) Calcium Level 8.6 mg/dL (8.5-10.1) Assessment and Plan Assessmemt and Plan Problems Medical Problems: (1) Urinary retention Status: Acute Comment Review of Relevant I have reviewed the following items almas (where applicable) has been applied. Medications: Current Medications Medications (Trade) Dose Ordered Sig/Mary Jane Route PRN Reason Start Time Stop Time Status Last Admin Dose Admin Cephalexin HCl (Keflex) 500 mg TID PO 01/27/21 09:00 01/27/21 21:57 Lactobacillus Rhamnosus (Culturelle) 1 cap BID PO 01/27/21 21:00 01/27/21 21:56 Gadoterate Meglumine (Clariscan) 17 ml 1X ONCE IVP 01/27/21 13:45 01/27/21 13:49 DC 01/27/21 14:54 Senna/Docusate Sodium (Senna Plus) 1 tab BID PO 01/27/21 21:00 01/27/21 21:56 Bisacodyl (Dulcolax Tab) 10 mg PRN DAILY PRN PO CONSTIPATION 01/27/21 16:15 01/27/21 16:40 Tamsulosin HCl (Flomax) 0.4 mg QHS PO 01/27/21 21:00 01/27/21 21:56 Justifications for Admission Other Justification Lumbar spinal stenosis concerning for cauda equina syndrome WARD ESTEVEZ MD Jan 28, 2021 07:28
[2021-01-28] MEDS: INSULIN LISPRO 300 UNITS/3 ML VIAL. SQ SCH ×3 (08:00→17:00)
[2021-01-28] MEDS: CEPHALEXIN 250 MG CAPSULE. PO SCH ×3 (08:54→22:29)
[2021-01-28] MEDS: SENNOSIDES/DOCUSATE 8.6/50MG TABLET. PO SCH ×2 (08:54→22:29)
[2021-01-28] MEDS: LACTOBACILLUS RHAMNOSUS GG 1 CAPSULE. PO SCH ×2 (08:54→22:22)
[2021-01-28] MEDS: POLYETHYLENE GLYCOL 3350 17 GM PACKET. PO SCH (08:54)
[2021-01-28 09:06] LABS: URIC ACID 6.6 mg/dL (3.5-7.2)
--- NOTE | 2021-01-28 09:06 | PDOC ---
PROGRESS NOTES Date of Service DATE: 01/28/21 TIME: 09:02 Subjective Subjective She admits continued low back pain. Objective Objective Vital Signs Date Time Temp Pulse Resp B/P (MAP) Pulse Ox O2 Delivery O2 Flow Rate FiO2 01/28/21 08:00 Room Air 01/28/21 07:00 98.4 93 20 141/76 (97) 96 98.4 Intake and Output 01/28/21 07:00 Intake Total 1400 ml Output Total 1150 ml Balance 250 ml Intake Oral 1400 ml Output Urine Total 1150 ml Physical Exam Physical Exam She is sitting up in bed side chair and eating breakfast and abdominal binder got wet as ice pack broke last night. MRI scan of lumbar vertebrae was not done yet. Assessment Assessment Problems Medical Problems: (1) Urinary retention Status: Acute Plan Plan of Care Waiting for MRI scan to decide on age of L4 vertebral body compression fracture befor considering IR consult for kyphoplasty. If compression fracture is old,to consider providing her her with lumbar support brace for use and home with home health or SNF transfer. Comment Review of Relevant I have reviewed the following items almas (where applicable) has been applied. Labs Laboratory Tests Test 01/26/21 14:20 01/26/21 14:24 01/26/21 20:36 01/27/21 05:35 Urine Collection Type Unknown Urine Color Yellow Urine Clarity Clear Urine pH 5.5 (<5.0-8.0) Urine Specific [place] 1.020 (1.000-1.030) Urine Protein 30 mg/dL (NEG-TRACE) Urine Glucose (UA) Negative mg/dL (NEG) Urine Ketones (Stick) Negative mg/dL (NEG) Urine Blood Negative (NEG) Urine Nitrite Negative (NEG) Urine Bilirubin Negative (NEG) Urine Urobilinogen Dipstick 0.2 mg/dL (0.2 mg/dL) Urine Leukocyte Esterase Moderate (NEG) Urine RBC Rare /HPF (0-2) Urine WBC 20-40 /HPF (0-4) Urine Bacteria Few /HPF (0-FEW) Urine Hyaline Casts Many /HPF Urine Mucus Marked /LPF Urine Yeast Present /HPF White Blood Count 6.5 x10^3/uL (4.0-11.0) Red Blood Count 2.44 x10^6/uL (4.30-5.70) Hemoglobin 7.7 g/dL (13.0-17.5) Hematocrit 22.9 % (39.0-53.0) Mean Corpuscular Volume 94 fL (79-100) Mean Corpuscular Hemoglobin 32 pg (25-35) Mean Corpuscular Hemoglobin Concent 34 g/dL (31-37) Red Cell Distribution Width 15.8 % (11.5-14.5) Platelet Count 81 x10^3/uL (140-400) Neutrophils (%) (Auto) 62 % (31-73) Lymphocytes (%) (Auto) 32 % (24-48) Monocytes (%) (Auto) 5 % (0-9) Eosinophils (%) (Auto) 1 % (0-3) Basophils (%) (Auto) 1 % (0-3) Neutrophils # (Auto) 4.1 x10^3/uL (1.8-7.7) Lymphocytes # (Auto) 2.1 x10^3/uL (1.0-4.8) Monocytes # (Auto) 0.3 x10^3/uL (0.0-1.1) Eosinophils # (Auto) 0.0 x10^3/uL (0.0-0.7) Basophils # (Auto) 0.0 x10^3/uL (0.0-0.2) Erythrocyte Sedimentation Rate 31 (0-15) Sodium Level 138 mmol/L (136-145) 140 mmol/L (136-145) Potassium Level 4.3 mmol/L (3.5-5.1) 4.4 mmol/L (3.5-5.1) Chloride Level 101 mmol/L (98-107) 102 mmol/L (98-107) Carbon Dioxide Level 23 mmol/L (21-32) 29 mmol/L (21-32) Anion Gap 14 (6-14) 9 (6-14) Blood Urea Nitrogen 30 mg/dL (8-26) 33 mg/dL (8-26) Creatinine 1.4 mg/dL (0.7-1.3) 1.8 mg/dL (0.7-1.3) Estimated GFR (Cockcroft-Gault) 51.9 38.8 BUN/Creatinine Ratio 21 (6-20) Glucose Level 110 mg/dL (70-99) 91 mg/dL (70-99) Calcium Level 8.7 mg/dL (8.5-10.1) 8.7 mg/dL (8.5-10.1) Total Bilirubin 0.4 mg/dL (0.2-1.0) Aspartate Amino Transf (AST/SGOT) 14 U/L (15-37) Alanine Aminotransferase (ALT/SGPT) 22 U/L (16-63) Alkaline Phosphatase 74 U/L (46-116) C-Reactive Protein, Quantitative 2.1 mg/L (0-3.3) Total Protein 7.3 g/dL (6.4-8.2) Albumin 3.8 g/dL (3.4-5.0) Albumin/Globulin Ratio 1.1 (1.0-1.7) Glucose (Fingerstick) 116 mg/dL (70-99) Test 01/27/21 05:55 01/27/21 07:02 01/27/21 11:22 01/27/21 16:44 White Blood Count 6.2 x10^3/uL (4.0-11.0) Red Blood Count 2.35 x10^6/uL (4.30-5.70) Hemoglobin 7.3 g/dL (13.0-17.5) Hematocrit 22.4 % (39.0-53.0) Mean Corpuscular Volume 95 fL (79-100) Mean Corpuscular Hemoglobin 31 pg (25-35) Mean Corpuscular Hemoglobin Concent 33 g/dL (31-37) Red Cell Distribution Width 15.9 % (11.5-14.5) Platelet Count 82 x10^3/uL (140-400) Neutrophils (%) (Auto) 39 % (31-73) Lymphocytes (%) (Auto) 54 % (24-48) Monocytes (%) (Auto) 4 % (0-9) Eosinophils (%) (Auto) 2 % (0-3) Basophils (%) (Auto) 1 % (0-3) Neutrophils # (Auto) 2.4 x10^3/uL (1.8-7.7) Lymphocytes # (Auto) 3.3 x10^3/uL (1.0-4.8) Monocytes # (Auto) 0.3 x10^3/uL (0.0-1.1) Eosinophils # (Auto) 0.1 x10^3/uL (0.0-0.7) Basophils # (Auto) 0.0 x10^3/uL (0.0-0.2) Glucose (Fingerstick) 91 mg/dL (70-99) 113 mg/dL (70-99) 140 mg/dL (70-99) Test 01/27/21 21:43 01/28/21 04:30 Glucose (Fingerstick) 104 mg/dL (70-99) White Blood Count 6.4 x10^3/uL (4.0-11.0) Red Blood Count 2.40 x10^6/uL (4.30-5.70) Hemoglobin 7.5 g/dL (13.0-17.5) Hematocrit 22.7 % (39.0-53.0) Mean Corpuscular Volume 94 fL (79-100) Mean Corpuscular Hemoglobin 31 pg (25-35) Mean Corpuscular Hemoglobin Concent 33 g/dL (31-37) Red Cell Distribution Width 15.6 % (11.5-14.5) Platelet Count 81 x10^3/uL (140-400) Neutrophils (%) (Auto) 69 % (31-73) Lymphocytes (%) (Auto) 25 % (24-48) Monocytes (%) (Auto) 5 % (0-9) Eosinophils (%) (Auto) 2 % (0-3) Basophils (%) (Auto) 0 % (0-3) Neutrophils # (Auto) 4.4 x10^3/uL (1.8-7.7) Lymphocytes # (Auto) 1.6 x10^3/uL (1.0-4.8) Monocytes # (Auto) 0.3 x10^3/uL (0.0-1.1) Eosinophils # (Auto) 0.1 x10^3/uL (0.0-0.7) Basophils # (Auto) 0.0 x10^3/uL (0.0-0.2) Sodium Level 141 mmol/L (136-145) Potassium Level 4.0 mmol/L (3.5-5.1) Chloride Level 103 mmol/L (98-107) Carbon Dioxide Level 28 mmol/L (21-32) Anion Gap 10 (6-14) Blood Urea Nitrogen 33 mg/dL (8-26) Creatinine 1.2 mg/dL (0.7-1.3) Estimated GFR (Cockcroft-Gault) 62.0 Glucose Level 106 mg/dL (70-99) Calcium Level 8.6 mg/dL (8.5-10.1) Iron Level 148 ug/dL (65-175) Total Iron Binding Capacity 245 ug/dL (250-450) Iron Saturation 60 % (15-34) Laboratory Tests Test 01/27/21 11:22 01/27/21 16:44 01/27/21 21:43 01/28/21 04:30 Glucose (Fingerstick) 113 mg/dL (70-99) 140 mg/dL (70-99) 104 mg/dL (70-99) White Blood Count 6.4 x10^3/uL (4.0-11.0) Red Blood Count 2.40 x10^6/uL (4.30-5.70) Hemoglobin 7.5 g/dL (13.0-17.5) Hematocrit 22.7 % (39.0-53.0) Mean Corpuscular Volume 94 fL (79-100) Mean Corpuscular Hemoglobin 31 pg (25-35) Mean Corpuscular Hemoglobin Concent 33 g/dL (31-37) Red Cell Distribution Width 15.6 % (11.5-14.5) Platelet Count 81 x10^3/uL (140-400) Neutrophils (%) (Auto) 69 % (31-73) Lymphocytes (%) (Auto) 25 % (24-48) Monocytes (%) (Auto) 5 % (0-9) Eosinophils (%) (Auto) 2 % (0-3) Basophils (%) (Auto) 0 % (0-3) Neutrophils # (Auto) 4.4 x10^3/uL (1.8-7.7) Lymphocytes # (Auto) 1.6 x10^3/uL (1.0-4.8) Monocytes # (Auto) 0.3 x10^3/uL (0.0-1.1) Eosinophils # (Auto) 0.1 x10^3/uL (0.0-0.7) Basophils # (Auto) 0.0 x10^3/uL (0.0-0.2) Sodium Level 141 mmol/L (136-145) Potassium Level 4.0 mmol/L (3.5-5.1) Chloride Level 103 mmol/L (98-107) Carbon Dioxide Level 28 mmol/L (21-32) Anion Gap 10 (6-14) Blood Urea Nitrogen 33 mg/dL (8-26) Creatinine 1.2 mg/dL (0.7-1.3) Estimated GFR (Cockcroft-Gault) 62.0 Glucose Level 106 mg/dL (70-99) Calcium Level 8.6 mg/dL (8.5-10.1) Iron Level 148 ug/dL (65-175) Total Iron Binding Capacity 245 ug/dL (250-450) Iron Saturation 60 % (15-34) Medications Current Medications Iohexol (Omnipaque 300 Mg/ml) 75 ml 1X ONCE IV Last administered on 01/26/21at 14:54; Start 01/26/21 at 14:30; Stop 01/26/21 at 14:31; Status DC Info (CONTRAST GIVEN -- Rx MONITORING) 1 each PRN DAILY PRN MC SEE COMMENTS; Start 01/26/21 at 14:30; Stop 01/28/21 at 14:29 Fentanyl Citrate (Fentanyl 2ml Vial) 50 mcg 1X ONCE IV Last administered on 01/26/21at 14:59; Start 01/26/21 at 14:30; Stop 01/26/21 at 14:31; Status DC Ondansetron HCl (Zofran) 4 mg 1X ONCE IV Last administered on 01/26/21at 14:59; Start 01/26/21 at 14:30; Stop 01/26/21 at 14:31; Status DC Insulin Human Lispro (HumaLOG) 0-7 UNITS TIDWMEALS SQ ; Start 01/27/21 at 08:00 Dextrose (Dextrose 50%-Water Syringe) 12.5 gm PRN Q15MIN PRN IV SEE COMMENTS; Start 01/26/21 at 18:15 Dextrose (Iv Dextrose 5%) 250 ml PRN Q15MIN PRN IV SEE COMMENTS; Start 01/26/21 at 18:15; Status UNV Ondansetron HCl (Zofran) 4 mg PRN Q6HRS PRN IVP NAUSEA/VOMITING Last administered on 01/28/21at 04:08; Start 01/26/21 at 18:15 Al Hydroxide/Mg Hydroxide (Mylanta Plus Xs) 30 ml PRN Q3HRS PRN PO HEARTBURN / GAS; Start 01/26/21 at 18:15 Calcium Carbonate/ Glycine (Tums) 500 mg PRN Q3HRS PRN PO UPSET STOMACH; Start 01/26/21 at 18:15 Zolpidem Tartrate (Ambien) 5 mg PRN QHS PRN PO INSOMNIA, MAY REPEAT IN 1HR Last administered on 01/27/21at 23:55; Start 01/26/21 at 18:15 Morphine Sulfate (Morphine Sulfate) 2 mg PRN Q1HR PRN IV MODERATE PAIN Last administered on 01/26/21at 19:27; Start 01/26/21 at 18:15; Stop 01/28/21 at 09:01; Status DC Acetaminophen/ Hydrocodone Bitart (Lortab 5/325) 1 tab PRN Q4HRS PRN PO MILD PAIN 1-3; Start 01/26/21 at 18:15; Stop 01/28/21 at 09:01; Status DC Acetaminophen/ Hydrocodone Bitart (Lortab 5/325) 2 tab PRN Q4HRS PRN PO MODERATE PAIN Last administered on 01/28/21at 04:39; Start 01/26/21 at 18:15; Stop 01/28/21 at 09:01; Status DC Hydromorphone HCl (Dilaudid) 2 mg PRN Q4HRS PRN PO MODERATE PAIN, 2ND CHOICE; Start 01/26/21 at 18:15; Stop 01/28/21 at 09:01; Status DC Hydromorphone HCl (Dilaudid) 4 mg PRN Q4HRS PRN PO SEVERE PAIN; Start 01/26/21 at 18:15; Stop 01/28/21 at 09:01; Status DC Acetaminophen (Tylenol) 650 mg PRN Q6HRS PRN PO Headaches, Temp > 101.5F; Start 01/26/21 at 18:15 Magnesium Hydroxide (Milk Of Magnesia) 2,400 mg PRN Q12HR PRN PO CONSTIPATION Last administered on 01/27/21at 16:39; Start 01/26/21 at 18:15 Bisacodyl (Dulcolax Supp) 10 mg PRN DAILY PRN NM CONSTIPATION; Start 01/26/21 at 18:15 Heparin Sodium (Porcine) (Heparin Sodium) 5,000 unit Q8HRS SQ Last administered on 01/28/21 05:44; Start 01/26/21 at 22:00 Hydromorphone HCl (Dilaudid) 2 mg PRN Q4HRS PRN IVP SEVERE PAIN Last administered on 01/27/21 09:37; Start 01/26/21 at 18:15; Stop 01/28/21 at 09:01; Status DC Lorazepam (Ativan Inj) 2 mg PRN Q4HRS PRN IVP ANXIETY / AGITATION Last administered on 01/27/21 00:23; Start 01/26/21 at 18:15 Trazodone HCl (Desyrel) 75 mg HS PO Last administered on 01/27/21 21:56; Start 01/26/21 at 21:30 Clonazepam (KlonoPIN) 1 mg TID PO Last administered on 01/27/21 09:32; Start 01/26/21 at 21:30; Stop 01/27/21 at 13:36; Status DC Cephalexin HCl (Keflex) 500 mg TID PO Last administered on 01/28/21 08:54; Start 01/27/21 at 09:00 Lactobacillus Rhamnosus (Culturelle) 1 cap BID PO Last administered on 01/28/21 08:54; Start 01/27/21 at 21:00 Clonazepam (KlonoPIN) 1 mg PRN TID PRN PO anxiety; Start 01/27/21 at 13:45 Gadoterate Meglumine (Clariscan) 17 ml 1X ONCE IVP Last administered on 01/27/21at 14:54; Start 01/27/21 at 13:45; Stop 01/27/21 at 13:49; Status DC Senna/Docusate Sodium (Senna Plus) 1 tab BID PO Last administered on 01/28/21 08:54; Start 01/27/21 at 21:00 Polyethylene Glycol (miraLAX PACKET) 17 gm DAILY PO Last administered on 01/28/21 08:54; Start 01/28/21 at 09:00 Bisacodyl (Dulcolax Tab) 10 mg PRN DAILY PRN PO CONSTIPATION Last administered on 01/27/21at 16:40; Start 01/27/21 at 16:15 Tamsulosin HCl (Flomax) 0.4 mg QHS PO Last administered on 01/27/21at 21:56; Start 01/27/21 at 21:00 Polyethylene Glycol (miraLAX PACKET) 17 gm DAILY PO ; Start 01/27/21 at 16:15; Status UNV Senna/Docusate Sodium (Senna Plus) 1 tab DAILY PO ; Start 01/27/21 at 16:15; Status UNV Gabapentin (Neurontin) 300 mg QID PO ; Start 01/28/21 at 09:30 Levothyroxine Sodium (Synthroid) 200 mcg DAILY06 PO ; Start 01/28/21 at 09:30 Methadone HCl (Dolophine) 10 mg TID PO ; Start 01/28/21 at 09:00; Status UNV Active Scripts Active Percocet 5-325 Mg Tablet (Oxycodone/Acetaminophen) 1 Each Tablet 1 Tab PO PRN Q6HRS PRN 5 Days Metformin Hcl Er (Metformin Hcl) 500 Mg Tab.er.24h 500 Mg PO [id number] 30 Days Reported Klonopin (Clonazepam) 1 Mg Tablet 1 Tab PO TID Trazodone Hcl 100 Mg Tablet 75 Mg PO HS Keflex (Cephalexin) 750 Mg Capsule 500 Mg PO TID Ferrous Sulfate 325 Mg Tablet 1 Tab PO BID Cyclobenzaprine Hcl 10 Mg Tablet 10 Mg PO HS Nifedipine Er (Nifedipine) 30 Mg Tablet.er 30 Mg PO HS Atenolol 50 Mg Tablet 50 Mg PO DAILY Losartan Potassium 100 Mg Tablet 100 Mg PO DAILY16 Colace (Docusate Sodium) 100 Mg Capsule 100 Mg PO DAILY Gabapentin 600 Mg Tablet 1,800 Mg PO BID Levothyroxine Sodium 200 Mcg Tablet 200 Mcg PO DAILYAC Hydrochlorothiazide Tablet (Hydrochlorothiazide) 25 Mg Tablet 50 Mg PO DAILY Vitals/I & O Vital Sign - Last 24 Hours 01/27/21 01/27/21 01/27/21 01/27/21 09:37 10:07 11:00 11:28 Temp 97.9 97.9 Pulse 89 Resp 17 B/P (MAP) 101/52 (68) Pulse Ox 95 O2 Delivery Room Air Room Air Room Air Room Air 01/27/21 01/27/21 01/27/21 01/27/21 11:58 15:00 15:39 19:00 Temp 97.9 99.3 97.9 99.3 Pulse 82 83 Resp 17 20 B/P (MAP) 111/64 (80) 116/61 (79) Pulse Ox 99 95 O2 Delivery Room Air Room Air Room Air Room Air 01/27/21 01/27/21 01/27/21 01/27/21 20:00 20:01 20:43 23:00 Temp 99.2 99.2 Pulse 88 Resp 16 16 20 B/P (MAP) 114/62 (79) Pulse Ox 99 95 O2 Delivery Room Air Room Air Room Air Room Air 01/28/21 01/28/21 01/28/21 01/28/21 00:31 01:34 03:00 04:39 Temp 99.0 99.0 Pulse 91 Resp 16 16 20 16 B/P (MAP) 138/70 (92) Pulse Ox 95 O2 Delivery Room Air Room Air Room Air Room Air 01/28/21 01/28/21 01/28/21 05:28 07:00 08:00 Temp 98.4 98.4 Pulse 93 Resp 16 20 B/P (MAP) 141/76 (97) Pulse Ox 96 O2 Delivery Room Air Room Air Room Air Intake and Output 01/27/21 01/27/21 01/28/21 15:00 23:00 07:00 Intake Total 300 ml 600 ml 500 ml Output Total 1150 ml Balance 300 ml 600 ml -650 ml Justifications for Admission Other Justification Lumbar spinal stenosis concerning for cauda equina syndrome RENETTA HOWARD MD Jan 28, 2021 09:06
--- NOTE | 2021-01-28 09:15 | PDOC ---
PROGRESS NOTES Date of Service DATE: 01/28/21 TIME: 09:10 Subjective Subjective He admits continued low back pain and hydrocodone is not effective to ease his pain and would like to go back to taking small dose of methadone. Objective Objective Vital Signs Date Time Temp Pulse Resp B/P (MAP) Pulse Ox O2 Delivery O2 Flow Rate FiO2 01/28/21 08:00 Room Air 01/28/21 07:00 98.4 93 20 141/76 (97) 96 98.4 Intake and Output 01/28/21 06:59 Intake Total 1400 ml Output Total 1150 ml Balance 250 ml Intake Oral 1400 ml Output Urine Total 1150 ml Physical Exam Physical Exam He is alert,supine in bed and continues with tenderness to palpation over lumbar area and painfully limited lumbar spine ROM. SLR test is negative bilaterally. Assessment Assessment Problems Medical Problems: (1) Urinary retention Status: Acute Plan Plan of Care To try methadone to better control his pain. To see how he voids after Coello catheter was removed and he is not interested in surgery for cervical spinal stenosis. Comment Review of Relevant I have reviewed the following items almas (where applicable) has been applied. Labs Laboratory Tests Test 01/26/21 14:20 01/26/21 14:24 01/26/21 20:36 01/27/21 05:35 Urine Collection Type Unknown Urine Color Yellow Urine Clarity Clear Urine pH 5.5 (<5.0-8.0) Urine Specific [place] 1.020 (1.000-1.030) Urine Protein 30 mg/dL (NEG-TRACE) Urine Glucose (UA) Negative mg/dL (NEG) Urine Ketones (Stick) Negative mg/dL (NEG) Urine Blood Negative (NEG) Urine Nitrite Negative (NEG) Urine Bilirubin Negative (NEG) Urine Urobilinogen Dipstick 0.2 mg/dL (0.2 mg/dL) Urine Leukocyte Esterase Moderate (NEG) Urine RBC Rare /HPF (0-2) Urine WBC 20-40 /HPF (0-4) Urine Bacteria Few /HPF (0-FEW) Urine Hyaline Casts Many /HPF Urine Mucus Marked /LPF Urine Yeast Present /HPF White Blood Count 6.5 x10^3/uL (4.0-11.0) Red Blood Count 2.44 x10^6/uL (4.30-5.70) Hemoglobin 7.7 g/dL (13.0-17.5) Hematocrit 22.9 % (39.0-53.0) Mean Corpuscular Volume 94 fL (79-100) Mean Corpuscular Hemoglobin 32 pg (25-35) Mean Corpuscular Hemoglobin Concent 34 g/dL (31-37) Red Cell Distribution Width 15.8 % (11.5-14.5) Platelet Count 81 x10^3/uL (140-400) Neutrophils (%) (Auto) 62 % (31-73) Lymphocytes (%) (Auto) 32 % (24-48) Monocytes (%) (Auto) 5 % (0-9) Eosinophils (%) (Auto) 1 % (0-3) Basophils (%) (Auto) 1 % (0-3) Neutrophils # (Auto) 4.1 x10^3/uL (1.8-7.7) Lymphocytes # (Auto) 2.1 x10^3/uL (1.0-4.8) Monocytes # (Auto) 0.3 x10^3/uL (0.0-1.1) Eosinophils # (Auto) 0.0 x10^3/uL (0.0-0.7) Basophils # (Auto) 0.0 x10^3/uL (0.0-0.2) Erythrocyte Sedimentation Rate 31 (0-15) Sodium Level 138 mmol/L (136-145) 140 mmol/L (136-145) Potassium Level 4.3 mmol/L (3.5-5.1) 4.4 mmol/L (3.5-5.1) Chloride Level 101 mmol/L (98-107) 102 mmol/L (98-107) Carbon Dioxide Level 23 mmol/L (21-32) 29 mmol/L (21-32) Anion Gap 14 (6-14) 9 (6-14) Blood Urea Nitrogen 30 mg/dL (8-26) 33 mg/dL (8-26) Creatinine 1.4 mg/dL (0.7-1.3) 1.8 mg/dL (0.7-1.3) Estimated GFR (Cockcroft-Gault) 51.9 38.8 BUN/Creatinine Ratio 21 (6-20) Glucose Level 110 mg/dL (70-99) 91 mg/dL (70-99) Calcium Level 8.7 mg/dL (8.5-10.1) 8.7 mg/dL (8.5-10.1) Total Bilirubin 0.4 mg/dL (0.2-1.0) Aspartate Amino Transf (AST/SGOT) 14 U/L (15-37) Alanine Aminotransferase (ALT/SGPT) 22 U/L (16-63) Alkaline Phosphatase 74 U/L (46-116) C-Reactive Protein, Quantitative 2.1 mg/L (0-3.3) Total Protein 7.3 g/dL (6.4-8.2) Albumin 3.8 g/dL (3.4-5.0) Albumin/Globulin Ratio 1.1 (1.0-1.7) Glucose (Fingerstick) 116 mg/dL (70-99) Test 01/27/21 05:55 01/27/21 07:02 01/27/21 11:22 01/27/21 16:44 White Blood Count 6.2 x10^3/uL (4.0-11.0) Red Blood Count 2.35 x10^6/uL (4.30-5.70) Hemoglobin 7.3 g/dL (13.0-17.5) Hematocrit 22.4 % (39.0-53.0) Mean Corpuscular Volume 95 fL (79-100) Mean Corpuscular Hemoglobin 31 pg (25-35) Mean Corpuscular Hemoglobin Concent 33 g/dL (31-37) Red Cell Distribution Width 15.9 % (11.5-14.5) Platelet Count 82 x10^3/uL (140-400) Neutrophils (%) (Auto) 39 % (31-73) Lymphocytes (%) (Auto) 54 % (24-48) Monocytes (%) (Auto) 4 % (0-9) Eosinophils (%) (Auto) 2 % (0-3) Basophils (%) (Auto) 1 % (0-3) Neutrophils # (Auto) 2.4 x10^3/uL (1.8-7.7) Lymphocytes # (Auto) 3.3 x10^3/uL (1.0-4.8) Monocytes # (Auto) 0.3 x10^3/uL (0.0-1.1) Eosinophils # (Auto) 0.1 x10^3/uL (0.0-0.7) Basophils # (Auto) 0.0 x10^3/uL (0.0-0.2) Glucose (Fingerstick) 91 mg/dL (70-99) 113 mg/dL (70-99) 140 mg/dL (70-99) Test 01/27/21 21:43 01/28/21 04:30 Glucose (Fingerstick) 104 mg/dL (70-99) White Blood Count 6.4 x10^3/uL (4.0-11.0) Red Blood Count 2.40 x10^6/uL (4.30-5.70) Hemoglobin 7.5 g/dL (13.0-17.5) Hematocrit 22.7 % (39.0-53.0) Mean Corpuscular Volume 94 fL (79-100) Mean Corpuscular Hemoglobin 31 pg (25-35) Mean Corpuscular Hemoglobin Concent 33 g/dL (31-37) Red Cell Distribution Width 15.6 % (11.5-14.5) Platelet Count 81 x10^3/uL (140-400) Neutrophils (%) (Auto) 69 % (31-73) Lymphocytes (%) (Auto) 25 % (24-48) Monocytes (%) (Auto) 5 % (0-9) Eosinophils (%) (Auto) 2 % (0-3) Basophils (%) (Auto) 0 % (0-3) Neutrophils # (Auto) 4.4 x10^3/uL (1.8-7.7) Lymphocytes # (Auto) 1.6 x10^3/uL (1.0-4.8) Monocytes # (Auto) 0.3 x10^3/uL (0.0-1.1) Eosinophils # (Auto) 0.1 x10^3/uL (0.0-0.7) Basophils # (Auto) 0.0 x10^3/uL (0.0-0.2) Sodium Level 141 mmol/L (136-145) Potassium Level 4.0 mmol/L (3.5-5.1) Chloride Level 103 mmol/L (98-107) Carbon Dioxide Level 28 mmol/L (21-32) Anion Gap 10 (6-14) Blood Urea Nitrogen 33 mg/dL (8-26) Creatinine 1.2 mg/dL (0.7-1.3) Estimated GFR (Cockcroft-Gault) 62.0 Glucose Level 106 mg/dL (70-99) Uric Acid 6.6 mg/dL (3.5-7.2) Calcium Level 8.6 mg/dL (8.5-10.1) Iron Level 148 ug/dL (65-175) Total Iron Binding Capacity 245 ug/dL (250-450) Iron Saturation 60 % (15-34) Ferritin 973 ng/mL (26-388) Lactate Dehydrogenase 149 U/L (85-227) Laboratory Tests Test 01/27/21 11:22 01/27/21 16:44 01/27/21 21:43 01/28/21 04:30 Glucose (Fingerstick) 113 mg/dL (70-99) 140 mg/dL (70-99) 104 mg/dL (70-99) White Blood Count 6.4 x10^3/uL (4.0-11.0) Red Blood Count 2.40 x10^6/uL (4.30-5.70) Hemoglobin 7.5 g/dL (13.0-17.5) Hematocrit 22.7 % (39.0-53.0) Mean Corpuscular Volume 94 fL (79-100) Mean Corpuscular Hemoglobin 31 pg (25-35) Mean Corpuscular Hemoglobin Concent 33 g/dL (31-37) Red Cell Distribution Width 15.6 % (11.5-14.5) Platelet Count 81 x10^3/uL (140-400) Neutrophils (%) (Auto) 69 % (31-73) Lymphocytes (%) (Auto) 25 % (24-48) Monocytes (%) (Auto) 5 % (0-9) Eosinophils (%) (Auto) 2 % (0-3) Basophils (%) (Auto) 0 % (0-3) Neutrophils # (Auto) 4.4 x10^3/uL (1.8-7.7) Lymphocytes # (Auto) 1.6 x10^3/uL (1.0-4.8) Monocytes # (Auto) 0.3 x10^3/uL (0.0-1.1) Eosinophils # (Auto) 0.1 x10^3/uL (0.0-0.7) Basophils # (Auto) 0.0 x10^3/uL (0.0-0.2) Sodium Level 141 mmol/L (136-145) Potassium Level 4.0 mmol/L (3.5-5.1) Chloride Level 103 mmol/L (98-107) Carbon Dioxide Level 28 mmol/L (21-32) Anion Gap 10 (6-14) Blood Urea Nitrogen 33 mg/dL (8-26) Creatinine 1.2 mg/dL (0.7-1.3) Estimated GFR (Cockcroft-Gault) 62.0 Glucose Level 106 mg/dL (70-99) Uric Acid 6.6 mg/dL (3.5-7.2) Calcium Level 8.6 mg/dL (8.5-10.1) Iron Level 148 ug/dL (65-175) Total Iron Binding Capacity 245 ug/dL (250-450) Iron Saturation 60 % (15-34) Ferritin 973 ng/mL (26-388) Lactate Dehydrogenase 149 U/L (85-227) Medications Current Medications Iohexol (Omnipaque 300 Mg/ml) 75 ml 1X ONCE IV Last administered on 01/26/21at 14:54; Start 01/26/21 at 14:30; Stop 01/26/21 at 14:31; Status DC Info (CONTRAST GIVEN -- Rx MONITORING) 1 each PRN DAILY PRN MC SEE COMMENTS; Start 01/26/21 at 14:30; Stop 01/28/21 at 14:29 Fentanyl Citrate (Fentanyl 2ml Vial) 50 mcg 1X ONCE IV Last administered on 01/26/21at 14:59; Start 01/26/21 at 14:30; Stop 01/26/21 at 14:31; Status DC Ondansetron HCl (Zofran) 4 mg 1X ONCE IV Last administered on 01/26/21at 14:59; Start 01/26/21 at 14:30; Stop 01/26/21 at 14:31; Status DC Insulin Human Lispro (HumaLOG) 0-7 UNITS TIDWMEALS SQ ; Start 01/27/21 at 08:00 Dextrose (Dextrose 50%-Water Syringe) 12.5 gm PRN Q15MIN PRN IV SEE COMMENTS; Start 01/26/21 at 18:15 Dextrose (Iv Dextrose 5%) 250 ml PRN Q15MIN PRN IV SEE COMMENTS; Start 01/26/21 at 18:15; Status UNV Ondansetron HCl (Zofran) 4 mg PRN Q6HRS PRN IVP NAUSEA/VOMITING Last administered on 01/28/21at 04:08; Start 01/26/21 at 18:15 Al Hydroxide/Mg Hydroxide (Mylanta Plus Xs) 30 ml PRN Q3HRS PRN PO HEARTBURN / GAS; Start 01/26/21 at 18:15 Calcium Carbonate/ Glycine (Tums) 500 mg PRN Q3HRS PRN PO UPSET STOMACH; Start 01/26/21 at 18:15 Zolpidem Tartrate (Ambien) 5 mg PRN QHS PRN PO INSOMNIA, MAY REPEAT IN 1HR Last administered on 01/27/21at 23:55; Start 01/26/21 at 18:15 Morphine Sulfate (Morphine Sulfate) 2 mg PRN Q1HR PRN IV MODERATE PAIN Last administered on 01/26/21at 19:27; Start 01/26/21 at 18:15; Stop 01/28/21 at 09:01; Status DC Acetaminophen/ Hydrocodone Bitart (Lortab 5/325) 1 tab PRN Q4HRS PRN PO MILD PAIN 1-3; Start 01/26/21 at 18:15; Stop 01/28/21 at 09:01; Status DC Acetaminophen/ Hydrocodone Bitart (Lortab 5/325) 2 tab PRN Q4HRS PRN PO MODERATE PAIN Last administered on 01/28/21at 04:39; Start 01/26/21 at 18:15; Stop 01/28/21 at 09:01; Status DC Hydromorphone HCl (Dilaudid) 2 mg PRN Q4HRS PRN PO MODERATE PAIN, 2ND CHOICE; Start 01/26/21 at 18:15; Stop 01/28/21 at 09:01; Status DC Hydromorphone HCl (Dilaudid) 4 mg PRN Q4HRS PRN PO SEVERE PAIN; Start 01/26/21 at 18:15; Stop 01/28/21 at 09:01; Status DC Acetaminophen (Tylenol) 650 mg PRN Q6HRS PRN PO Headaches, Temp > 101.5F; Start 01/26/21 at 18:15 Magnesium Hydroxide (Milk Of Magnesia) 2,400 mg PRN Q12HR PRN PO CONSTIPATION Last administered on 01/27/21 16:39; Start 01/26/21 at 18:15 Bisacodyl (Dulcolax Supp) 10 mg PRN DAILY PRN NE CONSTIPATION; Start 01/26/21 at 18:15 Heparin Sodium (Porcine) (Heparin Sodium) 5,000 unit Q8HRS SQ Last administered on 01/28/21at 05:44; Start 01/26/21 at 22:00 Hydromorphone HCl (Dilaudid) 2 mg PRN Q4HRS PRN IVP SEVERE PAIN Last administered on 01/27/21 09:37; Start 01/26/21 at 18:15; Stop 01/28/21 at 09:01; Status DC Lorazepam (Ativan Inj) 2 mg PRN Q4HRS PRN IVP ANXIETY / AGITATION Last administered on 01/27/21 00:23; Start 01/26/21 at 18:15 Trazodone HCl (Desyrel) 75 mg HS PO Last administered on 01/27/21 21:56; Start 01/26/21 at 21:30 Clonazepam (KlonoPIN) 1 mg TID PO Last administered on 01/27/21at 09:32; Start 01/26/21 at 21:30; Stop 01/27/21 at 13:36; Status DC Cephalexin HCl (Keflex) 500 mg TID PO Last administered on 01/28/21 08:54; Start 01/27/21 at 09:00 Lactobacillus Rhamnosus (Culturelle) 1 cap BID PO Last administered on 01/28/21at 08:54; Start 01/27/21 at 21:00 Clonazepam (KlonoPIN) 1 mg PRN TID PRN PO anxiety; Start 01/27/21 at 13:45 Gadoterate Meglumine (Clariscan) 17 ml 1X ONCE IVP Last administered on 01/27/21at 14:54; Start 01/27/21 at 13:45; Stop 01/27/21 at 13:49; Status DC Senna/Docusate Sodium (Senna Plus) 1 tab BID PO Last administered on 01/28/21at 08:54; Start 01/27/21 at 21:00 Polyethylene Glycol (miraLAX PACKET) 17 gm DAILY PO Last administered on 01/28/21at 08:54; Start 01/28/21 at 09:00 Bisacodyl (Dulcolax Tab) 10 mg PRN DAILY PRN PO CONSTIPATION Last administered on 01/27/21at 16:40; Start 01/27/21 at 16:15 Tamsulosin HCl (Flomax) 0.4 mg QHS PO Last administered on 01/27/21at 21:56; Start 01/27/21 at 21:00 Polyethylene Glycol (miraLAX PACKET) 17 gm DAILY PO ; Start 01/27/21 at 16:15; Status UNV Senna/Docusate Sodium (Senna Plus) 1 tab DAILY PO ; Start 01/27/21 at 16:15; Status UNV Gabapentin (Neurontin) 300 mg QID PO ; Start 01/28/21 at 09:30 Levothyroxine Sodium (Synthroid) 200 mcg DAILY06 PO ; Start 01/28/21 at 09:30 Methadone HCl (Dolophine) 10 mg TID PO ; Start 01/28/21 at 09:00 Active Scripts Active Percocet 5-325 Mg Tablet (Oxycodone/Acetaminophen) 1 Each Tablet 1 Tab PO PRN Q6HRS PRN 5 Days Metformin Hcl Er (Metformin Hcl) 500 Mg Tab.er.24h 500 Mg PO DAILYWBKFT 30 Days Reported Klonopin (Clonazepam) 1 Mg Tablet 1 Tab PO TID Trazodone Hcl 100 Mg Tablet 75 Mg PO HS Keflex (Cephalexin) 750 Mg Capsule 500 Mg PO TID Ferrous Sulfate 325 Mg Tablet 1 Tab PO BID Cyclobenzaprine Hcl 10 Mg Tablet 10 Mg PO HS Nifedipine Er (Nifedipine) 30 Mg Tablet.er 30 Mg PO HS Atenolol 50 Mg Tablet 50 Mg PO DAILY Losartan Potassium 100 Mg Tablet 100 Mg PO DAILY16 Colace (Docusate Sodium) 100 Mg Capsule 100 Mg PO DAILY Gabapentin 600 Mg Tablet 1,800 Mg PO BID Levothyroxine Sodium 200 Mcg Tablet 200 Mcg PO DAILYAC Hydrochlorothiazide Tablet (Hydrochlorothiazide) 25 Mg Tablet 50 Mg PO DAILY Vitals/I & O Vital Sign - Last 24 Hours 01/27/21 01/27/21 01/27/21 01/27/21 09:37 10:07 11:00 11:28 Temp 97.9 97.9 Pulse 89 Resp 17 B/P (MAP) 101/52 (68) Pulse Ox 95 O2 Delivery Room Air Room Air Room Air Room Air 01/27/21 01/27/21 01/27/21 01/27/21 11:58 15:00 15:39 19:00 Temp 97.9 99.3 97.9 99.3 Pulse 82 83 Resp 17 20 B/P (MAP) 111/64 (80) 116/61 (79) Pulse Ox 99 95 O2 Delivery Room Air Room Air Room Air Room Air 01/27/21 01/27/21 01/27/21 01/27/21 20:00 20:01 20:43 23:00 Temp 99.2 99.2 Pulse 88 Resp 16 16 20 B/P (MAP) 114/62 (79) Pulse Ox 99 95 O2 Delivery Room Air Room Air Room Air Room Air 01/28/21 01/28/21 01/28/21 01/28/21 00:31 01:34 03:00 04:39 Temp 99.0 99.0 Pulse 91 Resp 16 16 20 16 B/P (MAP) 138/70 (92) Pulse Ox 95 O2 Delivery Room Air Room Air Room Air Room Air 01/28/21 01/28/21 01/28/21 05:28 07:00 08:00 Temp 98.4 98.4 Pulse 93 Resp 16 20 B/P (MAP) 141/76 (97) Pulse Ox 96 O2 Delivery Room Air Room Air Room Air Intake and Output 01/27/21 01/27/21 01/28/21 14:59 22:59 06:59 Intake Total 300 ml 600 ml 500 ml Output Total 1150 ml Balance 300 ml 600 ml -650 ml Justifications for Admission Other Justification Lumbar spinal stenosis concerning for cauda equina syndrome RENETTA HOWARD MD Jan 28, 2021 09:15
[2021-01-28] MEDS: LEVOTHYROXINE 100 MCG TABLET PO SCH (10:07)
[2021-01-28] MEDS: clonazePAM 0.5 MG TABLET PO PRN ×2 (10:07→22:30)
[2021-01-28] MEDS: GABAPENTIN 300 MG CAPSULE. PO SCH ×4 (10:07→22:29)
[2021-01-28] MEDS: METHADONE 10 MG TABLET. PO SCH ×3 (10:10→22:37)
--- NOTE | 2021-01-28 10:52 | PDOC ---
Infectious Disease Note Subjective Subjective pt is sleepy but says he is ok ROS ROS no n/v/d/sob, fever Vital Sign Vital Signs Vital Signs Date Time Temp Pulse Resp B/P (MAP) Pulse Ox O2 Delivery O2 Flow Rate FiO2 01/28/21 08:00 Room Air 01/28/21 07:00 98.4 93 20 141/76 (97) 96 98.4 Physical Exam PHYSICAL EXAM GENERAL: Alert, oriented gentleman, not in distress. VITAL SIGNS: Stable, afebrile. HEENT: NAD. NECK: Supple. No JVP, no lymphadenopathy. LUNGS: Clear. HEART: S1, S2 regular. ABDOMEN: Soft, nontender. No organomegaly. EXTREMITIES: No edema or cyanosis. SKIN: Unremarkable. NEUROLOGIC: The patient is alert, awake, and appropriate. No focal neurologic deficit. Does have a Coello catheter in place right now. Labs Lab Laboratory Tests Test 01/27/21 11:22 01/27/21 16:44 01/27/21 21:43 01/28/21 04:30 Glucose (Fingerstick) 113 mg/dL (70-99) 140 mg/dL (70-99) 104 mg/dL (70-99) White Blood Count 6.4 x10^3/uL (4.0-11.0) Red Blood Count 2.38 x10^6/uL (4.30-5.70) Hemoglobin 7.5 g/dL (13.0-17.5) Hematocrit 22.7 % (39.0-53.0) Mean Corpuscular Volume 94 fL (79-100) Mean Corpuscular Hemoglobin 31 pg (25-35) Mean Corpuscular Hemoglobin Concent 33 g/dL (31-37) Red Cell Distribution Width 15.6 % (11.5-14.5) Platelet Count 81 x10^3/uL (140-400) Neutrophils (%) (Auto) 69 % (31-73) Lymphocytes (%) (Auto) 25 % (24-48) Monocytes (%) (Auto) 5 % (0-9) Eosinophils (%) (Auto) 2 % (0-3) Basophils (%) (Auto) 0 % (0-3) Neutrophils # (Auto) 4.4 x10^3/uL (1.8-7.7) Lymphocytes # (Auto) 1.6 x10^3/uL (1.0-4.8) Monocytes # (Auto) 0.3 x10^3/uL (0.0-1.1) Eosinophils # (Auto) 0.1 x10^3/uL (0.0-0.7) Basophils # (Auto) 0.0 x10^3/uL (0.0-0.2) Absolute Reticulocyte Count x10^6/uL (0.020-0.120) Percent Reticulocyte Count < 0.2 % (0.5-2.3) Immature Reticulocyte Fraction (0.20-0.60) Sodium Level 141 mmol/L (136-145) Potassium Level 4.0 mmol/L (3.5-5.1) Chloride Level 103 mmol/L (98-107) Carbon Dioxide Level 28 mmol/L (21-32) Anion Gap 10 (6-14) Blood Urea Nitrogen 33 mg/dL (8-26) Creatinine 1.2 mg/dL (0.7-1.3) Estimated GFR (Cockcroft-Gault) 62.0 Glucose Level 106 mg/dL (70-99) Uric Acid 6.6 mg/dL (3.5-7.2) Calcium Level 8.6 mg/dL (8.5-10.1) Iron Level 148 ug/dL (65-175) Total Iron Binding Capacity 245 ug/dL (250-450) Iron Saturation 60 % (15-34) Ferritin 973 ng/mL (26-388) Lactate Dehydrogenase 149 U/L (85-227) Vitamin B12 Level 339 pg/mL (247-911) Objective Assessment IMPRESSION: 1. Back pain, most likely is musculoskeletal. 2. Urinary retention. 3. History of methicillin-susceptible Staphylococcus aureus bacteremia and extensive spinal infection in October. 4. Hypertension. Plan Plan of Care C spine and T spine MRI noted, with new epidural and other collection, ?? post surgery changes, ? 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 d/w KIRK Birch MD Jan 28, 2021 10:52
[2021-01-28 11:00] VITALS: BP 120/67
[2021-01-28] MEDS: DAPTOmycin (GENERIC) IVPB 450 MG in IV NORMAL SALINE 50ML 50 ML IV SCH (13:07)
--- NOTE | 2021-01-28 13:16 | PDOC ---
Provider Note Date of Service: DATE: 01/28/21 TIME: 13:12 Provider Note Reviewed C and T MRI scans. 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 D/W Dr. Dacosta and Dr. Vazquez. I recommended more aggressive antibiotic therapy and a follow up MRI total spine in 4 to 6 weeks. Justifications for Admission Other Justification Lumbar spinal stenosis concerning for cauda equina syndrome ZEESHAN TANNER MD Jan 28, 2021 13:16
[2021-01-28] MEDS: ACETAMINOPHEN 325 MG TABLET. PO PRN (13:36)
[2021-01-28] MEDS ORDERED: LIDOCAINE WITH 8.4% SOD BICARB 3 ML DISP.SYRIN. ONE (14:32)
[2021-01-28 15:00] VITALS: BP 101/61
[2021-01-28] MEDS ORDERED: LIDOCAINE WITH 8.4% SOD BICARB 3 ML DISP.SYRIN. INJ ONE (15:15)
[2021-01-28] MEDS: MEROPENEM 500 MG in IV NORMAL SALINE 50ML 50 ML IV SCH ×2 (15:36→22:30)
--- NOTE | 2021-01-28 15:36 | RAD ---
Date: 01/28/2021 Exam: Fluoroscopic and ultrasound guided peripheral central venous catheter placement. Indication: Consent: The procedure was explained in its entirety to the patient or the patients designated repres entative by a member of the treatment team, including a discussion of the risks, benefits and commonl y accepted alternatives to the procedure, as well as the expected consequences of no therapy whatsoev er. Discussion of the risks included, but was not limited to, those that are most frequent and thos e that are rare but possibly severe or life-threatening, as well as the possibility of unforeseen com plications. Discussion: A timeout procedure was performed. The patient was prepped and draped using maximum sterile techniq ue, including the use of: Current guideline approved cutaneous antisepsis, a large sterile sheet to e stablish a sterile field. 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 1% lidoc rosario was administered for local anesthesia. Ultrasound evaluation demonstrates a patent basilic vein. Reference images were saved in the medical record. The selected vein was accessed using micropuncture technique. A guidewire was advanced centr ally. The PICC line was cut to length, and advanced through a peel-away sheath such that it's tip re sides at the cavoatrial junction. The peel-away sheath a sheath was removed. The catheter was secured in place. The catheter was found to flush and aspirate normally.. Sterile dressings were applied. No immediate complications were identified. Fluoroscopy time: 0.3 minutes Dose area product: 0.3 Gycm2 Impression: Successful placement of a right upper extremity PICC line Electronically signed by: Manfred Camacho MD (01/28/2021 3:34 PM) [id number]
[2021-01-28 19:48] VITALS: BP 103/58
--- NOTE | 2021-01-28 19:50 | NUR ---
Patient voided 250mls; PVR volume measured at approx 50mls.
[2021-01-28] MEDS: traZODone 50 MG TABLET. PO SCH (22:26)
[2021-01-28] MEDS: TAMSULOSIN 0.4 MG CAP.ER.24H. PO SCH (22:29)
[2021-01-28 23:08] VITALS: BP 125/69
[2021-01-29] VITALS (12 sets, daily range): BP systolic 101–137; BP diastolic 62–75
[2021-01-29] MEDS: LEVOTHYROXINE 100 MCG TABLET PO SCH (06:01)
[2021-01-29] MEDS: MEROPENEM 500 MG in IV NORMAL SALINE 50ML 50 ML IV SCH ×3 (06:01→22:06)
[2021-01-29] MEDS: HEPARIN for SUB-Q USE 5,000 UNIT/ML VIAL. SQ SCH ×3 (06:07→20:35)
[2021-01-29 07:01] LABS: BASO % 1 % (0-3); EOS # 0.2 x10^3/uL (0.0-0.7); EOS % 4 % (0-3); LYMPH # 2.4 x10^3/uL (1.0-4.8); LYMPH % 52 % (24-48); MEAN CORPUSCULAR HEMOGLOBIN 31 pg (25-35); MEAN CORPUSCULAR HGB CONC 34 g/dL (31-37); MEAN CORPUSCULAR VOLUME 94 fL (79-100); MONO # 0.3 x10^3/uL (0.0-1.1); MONO % 6 % (0-9); NEUT # 1.7 x10^3/uL (1.8-7.7); NEUT % 37 % (31-73); PLATELET COUNT 79 x10^3/uL (140-400); RED BLOOD COUNT 2.09 x10^6/uL (4.30-5.70); RED CELL DISTRIBUTION WIDTH 15.5 % (11.5-14.5); WHITE BLOOD COUNT 4.6 x10^3/uL (4.0-11.0)
[2021-01-29 07:02] LABS: CALCIUM 8.4 mg/dL (8.5-10.1); GFR 76.5
[2021-01-29 07:05] LABS: HEMATOCRIT 19.6 % (39.0-53.0); HEMOGLOBIN 6.6 g/dL (13.0-17.5)
--- NOTE | 2021-01-29 07:08 | NUR ---
Critical labs called in for a hgb of 6.6 and hct of 19.6. Dr Anderson paged at 0705. Dr Anderson returned call stated he would order 1 unit PRBC for patient.
--- NOTE | 2021-01-29 07:11 | PDOC ---
[employer] PROGRESS NOTE Date of Service DOS: DATE: 01/29/21 TIME: 07:02 Chief Complaint Chief Complaint A/P: L2-L5 spinal canal stenosis with urinary retention History osteomyelitis DM2 Normocytic anemia Hypothyroidism Chronic pain Right total knee replacement History of femur fracture October 2020 osteomyelitis T11-12 - MRI changes in cervical and thoracic spine likely needs IV treatment Plan: Will resume his current antibiotic treatment Hemoglobin & hematocrit 8.8 and 25.6 respectively (11/16/2020); hemoglobin 7.1 and hematocrit 22.9 on admission. Will continue to monitor and transfuse as needed. Resume home medications FEN - Cardiac diet PPX - Heparin FULL CODE Dispo - inpatient for above Advance Care Planning: Total time spent [id number] with patient 16 minutes in discussion with goals of care, comfort care, end-of-life care, pain management, code status; patient names his (Radha Padilla) as surrogate decision-maker. History of Present Illness History of Present Illness Mr Byrnes is a 61-year-old male PMHx hypothyroidism, chronic pain, hernia, back surgery, right total knee replacement, and history of femur fracture and October 2020 osteomyelitis s/p cervical, thoracic, and lumbar epidural abscess drainage who presents to the ED with complaints of urinary retention. Patient states he has not urinated in the past 2 days prior to admit with associated bladder distention. He was recently admitted on 11/02/2020 for spinal epidural abscess, paraspinal cervical abscess, and osteomyelitis. He states he is currently on an antibiotic 3 times daily, but cannot member the name of this antibiotic. CT lumbar spine obtained in the ED showed redemonstrated changes of discitis osteomyelitis at L3-L4 with at least moderate spinal canal stenosis at that level L2-L5. Coello catheter was placed in the ED with reportedly 1000 mL urine output. Patient states he feels significantly better after having Coello placed, but is also reports chronic right knee pain. He has had right knee pain over this past 3 years since total knee replacement, but states his pain is worsened over the past 3 days causing him difficulty moving. States his knee is slightly more mobile after pain medication he received in the ED. Neurosurgery was consulted in the ED and requesting admission. Admitted patient for further medical management. 01/27: Afebrile. Discussed with neurosurgery and ID his recent MRI is actually improved. He discloses to me that prior to his complicated hospital stay he had actually been weaned down from 150 mg daily of methadone for chronic pain to 10 mg 3 times daily and has had trouble having anyone to prescribe methadone for him. He continues to ask for pain medication regularly. Discussed complications of urinary retention related to chronic opioid therapy. 01/28: Afebrile. Platelets still low normal still low. Coello out today start on methadone per PMR. MRI reviewed with ID and neurosurgery, given MRI findings and thoracic and cervical areas changed likely persistent infection. Voiding trial today. PICC inserted Afebrile overnight. Hemoglobin dropped below 7. Pain better controlled on methadone. No residual on PVR. Getting blood transfusion. Vitals/I&O Vitals/I&O: Vital Signs Date Time Temp Pulse Resp B/P (MAP) Pulse Ox O2 Delivery O2 Flow Rate FiO2 01/29/21 03:16 98.3 90 16 110/62 (78) 94 Room Air 98.3 I & O 01/28/21 01/28/21 01/29/21 15:00 23:00 07:00 Intake Total 480 ml 290 ml 400 ml Output Total 1075 ml 250 ml Balance -595 ml 290 ml 150 ml Physical Exam Physical Exam: GENERAL: Alert, oriented gentleman, not in distress. VITAL SIGNS: Stable, afebrile. HEENT: NAD. NECK: Supple. No JVP, no lymphadenopathy. LUNGS: Clear. HEART: S1, S2 regular. ABDOMEN: Soft, nontender. No organomegaly. EXTREMITIES: No edema or cyanosis. SKIN: Unremarkable. NEUROLOGIC: The patient is alert, awake, and appropriate. No focal neurologic deficit. Does have a Coello catheter in place right now. General: Alert, Cooperative Lungs: Clear Labs Labs: Laboratory Tests Test 01/28/21 12:00 01/28/21 16:53 01/28/21 20:37 Haptoglobin 145 mg/dL (29-370) Glucose (Fingerstick) 97 mg/dL (70-99) 115 mg/dL (70-99) Assessment and Plan Assessmemt and Plan Problems Medical Problems: (1) Urinary retention Status: Acute Comment Review of Relevant I have reviewed the following items almas (where applicable) has been applied. Medications: Current Medications Medications (Trade) Dose Ordered Sig/Mary Jane Route PRN Reason Start Time Stop Time Status Last Admin Dose Admin Polyethylene Glycol (miraLAX PACKET) 17 gm DAILY PO 01/28/21 09:00 01/28/21 08:54 Gabapentin (Neurontin) 300 mg QID PO 01/28/21 09:30 01/28/21 22:29 Levothyroxine Sodium (Synthroid) 200 mcg DAILY06 PO 01/28/21 09:30 01/29/21 06:01 Methadone HCl (Dolophine) 10 mg TID PO 01/28/21 09:00 01/28/21 22:37 Daptomycin 450 mg/ Sodium Chloride 50 ml @ 100 mls/hr Q24H IV 01/28/21 12:30 01/28/21 13:07 Meropenem 500 mg/ Sodium Chloride 50 ml @ 100 mls/hr Q8HRS IV 01/28/21 14:00 01/29/21 06:01 Lidocaine HCl (Buffered Lidocaine 1%) 3 ml 1X ONCE INJ 01/28/21 15:15 01/28/21 15:16 DC 01/28/21 15:22 Justifications for Admission Other Justification Lumbar spinal stenosis concerning for cauda equina syndrome WARD ESTEVEZ MD Jan 29, 2021 07:11
[2021-01-29] MEDS ORDERED: CYANOCOBALAMIN (VITAMIN B-12) 1,000 MCG/ML VIAL. IM ONE (07:30)
[2021-01-29] MEDS: INSULIN LISPRO 300 UNITS/3 ML VIAL. SQ SCH (08:00)
[2021-01-29] MEDS: CEPHALEXIN 250 MG CAPSULE. PO SCH ×3 (09:28→20:28)
[2021-01-29] MEDS: GABAPENTIN 300 MG CAPSULE. PO SCH ×4 (09:28→20:27)
[2021-01-29] MEDS: LACTOBACILLUS RHAMNOSUS GG 1 CAPSULE. PO SCH ×2 (09:28→20:28)
[2021-01-29] MEDS: SENNOSIDES/DOCUSATE 8.6/50MG TABLET. PO SCH ×2 (09:28→20:27)
[2021-01-29] MEDS: POLYETHYLENE GLYCOL 3350 17 GM PACKET. PO SCH (09:28)
[2021-01-29] MEDS: METHADONE 10 MG TABLET. PO SCH ×3 (09:32→20:27)
--- NOTE | 2021-01-29 09:38 | PDOC ---
PROGRESS NOTES Date of Service DATE: 01/29/21 TIME: 09:33 Subjective Subjective He is asking for his methadone this AM and admits it is helping to ease his pain to some extent. Objective Objective Vital Signs Date Time Temp Pulse Resp B/P (MAP) Pulse Ox O2 Delivery O2 Flow Rate FiO2 01/29/21 07:00 98.1 85 17 126/63 (84) 96 Room Air 98.1 Intake and Output 01/29/21 07:00 Intake Total 1170 ml Output Total 1325 ml Balance -155 ml Intake Oral 1070 ml IV Total 100 ml Output Urine Total 1325 ml Physical Exam Physical Exam He is supine in bed and seems to be in no acute distress and he did get up and walked per 30' with roller walker with physical therapy and he is voiding since Coello catheter was discontinued and emptying bladder and post voiding urine residual this AM is 50 ml,acceptable. Assessment Assessment Problems Medical Problems: (1) Urinary retention Status: Acute Plan Plan of Care To continue present physical and occupational therapy and to SNF if he can afford his co-pay,otherwise home with home health follow up. Comment Review of Relevant I have reviewed the following items almas (where applicable) has been applied. Labs Laboratory Tests Test 01/27/21 11:22 01/27/21 16:44 01/27/21 21:43 01/28/21 04:30 Glucose (Fingerstick) 113 mg/dL (70-99) 140 mg/dL (70-99) 104 mg/dL (70-99) White Blood Count 6.4 x10^3/uL (4.0-11.0) Red Blood Count 2.38 x10^6/uL (4.30-5.70) Hemoglobin 7.5 g/dL (13.0-17.5) Hematocrit 22.7 % (39.0-53.0) Mean Corpuscular Volume 94 fL (79-100) Mean Corpuscular Hemoglobin 31 pg (25-35) Mean Corpuscular Hemoglobin Concent 33 g/dL (31-37) Red Cell Distribution Width 15.6 % (11.5-14.5) Platelet Count 81 x10^3/uL (140-400) Neutrophils (%) (Auto) 69 % (31-73) Lymphocytes (%) (Auto) 25 % (24-48) Monocytes (%) (Auto) 5 % (0-9) Eosinophils (%) (Auto) 2 % (0-3) Basophils (%) (Auto) 0 % (0-3) Neutrophils # (Auto) 4.4 x10^3/uL (1.8-7.7) Lymphocytes # (Auto) 1.6 x10^3/uL (1.0-4.8) Monocytes # (Auto) 0.3 x10^3/uL (0.0-1.1) Eosinophils # (Auto) 0.1 x10^3/uL (0.0-0.7) Basophils # (Auto) 0.0 x10^3/uL (0.0-0.2) Absolute Reticulocyte Count x10^6/uL (0.020-0.120) Percent Reticulocyte Count < 0.2 % (0.5-2.3) Immature Reticulocyte Fraction (0.20-0.60) Sodium Level 141 mmol/L (136-145) Potassium Level 4.0 mmol/L (3.5-5.1) Chloride Level 103 mmol/L (98-107) Carbon Dioxide Level 28 mmol/L (21-32) Anion Gap 10 (6-14) Blood Urea Nitrogen 33 mg/dL (8-26) Creatinine 1.2 mg/dL (0.7-1.3) Estimated GFR (Cockcroft-Gault) 62.0 Glucose Level 106 mg/dL (70-99) Uric Acid 6.6 mg/dL (3.5-7.2) Calcium Level 8.6 mg/dL (8.5-10.1) Iron Level 148 ug/dL (65-175) Total Iron Binding Capacity 245 ug/dL (250-450) Iron Saturation 60 % (15-34) Ferritin 973 ng/mL (26-388) Lactate Dehydrogenase 149 U/L (85-227) Vitamin B12 Level 339 pg/mL (247-911) Test 01/28/21 12:00 01/28/21 16:53 01/28/21 20:37 01/29/21 06:35 Haptoglobin 145 mg/dL (29-370) Glucose (Fingerstick) 97 mg/dL (70-99) 115 mg/dL (70-99) White Blood Count 4.6 x10^3/uL (4.0-11.0) Red Blood Count 2.09 x10^6/uL (4.30-5.70) Hemoglobin 6.6 g/dL (13.0-17.5) Hematocrit 19.6 % (39.0-53.0) Mean Corpuscular Volume 94 fL (79-100) Mean Corpuscular Hemoglobin 31 pg (25-35) Mean Corpuscular Hemoglobin Concent 34 g/dL (31-37) Red Cell Distribution Width 15.5 % (11.5-14.5) Platelet Count 79 x10^3/uL (140-400) Neutrophils (%) (Auto) 37 % (31-73) Lymphocytes (%) (Auto) 52 % (24-48) Monocytes (%) (Auto) 6 % (0-9) Eosinophils (%) (Auto) 4 % (0-3) Basophils (%) (Auto) 1 % (0-3) Neutrophils # (Auto) 1.7 x10^3/uL (1.8-7.7) Lymphocytes # (Auto) 2.4 x10^3/uL (1.0-4.8) Monocytes # (Auto) 0.3 x10^3/uL (0.0-1.1) Eosinophils # (Auto) 0.2 x10^3/uL (0.0-0.7) Basophils # (Auto) 0.0 x10^3/uL (0.0-0.2) Sodium Level 142 mmol/L (136-145) Potassium Level 4.0 mmol/L (3.5-5.1) Chloride Level 105 mmol/L (98-107) Carbon Dioxide Level 32 mmol/L (21-32) Anion Gap 5 (6-14) Blood Urea Nitrogen 21 mg/dL (8-26) Creatinine 1.0 mg/dL (0.7-1.3) Estimated GFR (Cockcroft-Gault) 76.5 Glucose Level 83 mg/dL (70-99) Calcium Level 8.4 mg/dL (8.5-10.1) Creatine Kinase 19 U/L (39-308) Test 01/29/21 07:22 Glucose (Fingerstick) 81 mg/dL (70-99) Laboratory Tests Test 01/28/21 12:00 01/28/21 16:53 01/28/21 20:37 01/29/21 06:35 Haptoglobin 145 mg/dL (29-370) Glucose (Fingerstick) 97 mg/dL (70-99) 115 mg/dL (70-99) White Blood Count 4.6 x10^3/uL (4.0-11.0) Red Blood Count 2.09 x10^6/uL (4.30-5.70) Hemoglobin 6.6 g/dL (13.0-17.5) Hematocrit 19.6 % (39.0-53.0) Mean Corpuscular Volume 94 fL (79-100) Mean Corpuscular Hemoglobin 31 pg (25-35) Mean Corpuscular Hemoglobin Concent 34 g/dL (31-37) Red Cell Distribution Width 15.5 % (11.5-14.5) Platelet Count 79 x10^3/uL (140-400) Neutrophils (%) (Auto) 37 % (31-73) Lymphocytes (%) (Auto) 52 % (24-48) Monocytes (%) (Auto) 6 % (0-9) Eosinophils (%) (Auto) 4 % (0-3) Basophils (%) (Auto) 1 % (0-3) Neutrophils # (Auto) 1.7 x10^3/uL (1.8-7.7) Lymphocytes # (Auto) 2.4 x10^3/uL (1.0-4.8) Monocytes # (Auto) 0.3 x10^3/uL (0.0-1.1) Eosinophils # (Auto) 0.2 x10^3/uL (0.0-0.7) Basophils # (Auto) 0.0 x10^3/uL (0.0-0.2) Sodium Level 142 mmol/L (136-145) Potassium Level 4.0 mmol/L (3.5-5.1) Chloride Level 105 mmol/L (98-107) Carbon Dioxide Level 32 mmol/L (21-32) Anion Gap 5 (6-14) Blood Urea Nitrogen 21 mg/dL (8-26) Creatinine 1.0 mg/dL (0.7-1.3) Estimated GFR (Cockcroft-Gault) 76.5 Glucose Level 83 mg/dL (70-99) Calcium Level 8.4 mg/dL (8.5-10.1) Creatine Kinase 19 U/L (39-308) Test 01/29/21 07:22 Glucose (Fingerstick) 81 mg/dL (70-99) Microbiology 01/26/21 Urine Culture - Final, Complete Medications Current Medications Iohexol (Omnipaque 300 Mg/ml) 75 ml 1X ONCE IV Last administered on 01/26/21at 14:54; Start 01/26/21 at 14:30; Stop 01/26/21 at 14:31; Status DC Info (CONTRAST GIVEN -- Rx MONITORING) 1 each PRN DAILY PRN MC SEE COMMENTS; Start 01/26/21 at 14:30; Stop 01/28/21 at 14:29; Status DC Fentanyl Citrate (Fentanyl 2ml Vial) 50 mcg 1X ONCE IV Last administered on 01/26/21at 14:59; Start 01/26/21 at 14:30; Stop 01/26/21 at 14:31; Status DC Ondansetron HCl (Zofran) 4 mg 1X ONCE IV Last administered on 01/26/21at 14:59; Start 01/26/21 at 14:30; Stop 01/26/21 at 14:31; Status DC Insulin Human Lispro (HumaLOG) 0-7 UNITS TIDWMEALS SQ ; Start 01/27/21 at 08:00 Dextrose (Dextrose 50%-Water Syringe) 12.5 gm PRN Q15MIN PRN IV SEE COMMENTS; Start 01/26/21 at 18:15 Dextrose (Iv Dextrose 5%) 250 ml PRN Q15MIN PRN IV SEE COMMENTS; Start 01/26/21 at 18:15; Status UNV Ondansetron HCl (Zofran) 4 mg PRN Q6HRS PRN IVP NAUSEA/VOMITING Last administered on 01/28/21at 04:08; Start 01/26/21 at 18:15 Al Hydroxide/Mg Hydroxide (Mylanta Plus Xs) 30 ml PRN Q3HRS PRN PO HEARTBURN / GAS; Start 01/26/21 at 18:15 Calcium Carbonate/ Glycine (Tums) 500 mg PRN Q3HRS PRN PO UPSET STOMACH; Start 01/26/21 at 18:15 Zolpidem Tartrate (Ambien) 5 mg PRN QHS PRN PO INSOMNIA, MAY REPEAT IN 1HR Last administered on 01/27/21at 23:55; Start 01/26/21 at 18:15 Morphine Sulfate (Morphine Sulfate) 2 mg PRN Q1HR PRN IV MODERATE PAIN Last administered on 01/26/21at 19:27; Start 01/26/21 at 18:15; Stop 01/28/21 at 09:01; Status DC Acetaminophen/ Hydrocodone Bitart (Lortab 5/325) 1 tab PRN Q4HRS PRN PO MILD PAIN 1-3; Start 01/26/21 at 18:15; Stop 01/28/21 at 09:01; Status DC Acetaminophen/ Hydrocodone Bitart (Lortab 5/325) 2 tab PRN Q4HRS PRN PO MODERATE PAIN Last administered on 01/28/21at 04:39; Start 01/26/21 at 18:15; Stop 01/28/21 at 09:01; Status DC Hydromorphone HCl (Dilaudid) 2 mg PRN Q4HRS PRN PO MODERATE PAIN, 2ND CHOICE; Start 01/26/21 at 18:15; Stop 01/28/21 at 09:01; Status DC Hydromorphone HCl (Dilaudid) 4 mg PRN Q4HRS PRN PO SEVERE PAIN; Start 01/26/21 at 18:15; Stop 01/28/21 at 09:01; Status DC Acetaminophen (Tylenol) 650 mg PRN Q6HRS PRN PO Headaches, Temp > 101.5F Last administered on 01/28/21at 13:36; Start 01/26/21 at 18:15 Magnesium Hydroxide (Milk Of Magnesia) 2,400 mg PRN Q12HR PRN PO CONSTIPATION Last administered on 01/27/21at 16:39; Start 01/26/21 at 18:15 Bisacodyl (Dulcolax Supp) 10 mg PRN DAILY PRN MI CONSTIPATION; Start 01/26/21 at 18:15 Heparin Sodium (Porcine) (Heparin Sodium) 5,000 unit Q8HRS SQ Last administered on 01/29/21at 06:07; Start 01/26/21 at 22:00 Hydromorphone HCl (Dilaudid) 2 mg PRN Q4HRS PRN IVP SEVERE PAIN Last administered on 01/27/21at 09:37; Start 01/26/21 at 18:15; Stop 01/28/21 at 09:01; Status DC Lorazepam (Ativan Inj) 2 mg PRN Q4HRS PRN IVP ANXIETY / AGITATION Last administered on 01/27/21 00:23; Start 01/26/21 at 18:15 Trazodone HCl (Desyrel) 75 mg HS PO Last administered on 01/28/21 22:26; Start 01/26/21 at 21:30 Clonazepam (KlonoPIN) 1 mg TID PO Last administered on 01/27/21 09:32; Start 01/26/21 at 21:30; Stop 01/27/21 at 13:36; Status DC Cephalexin HCl (Keflex) 500 mg TID PO Last administered on 01/28/21 22:29; Start 01/27/21 at 09:00 Lactobacillus Rhamnosus (Culturelle) 1 cap BID PO Last administered on 01/19 at 22:22; Start 01/27/21 at 21:00 Clonazepam (KlonoPIN) 1 mg PRN TID PRN PO anxiety Last administered on 01/28/21 22:30; Start 01/27/21 at 13:45 Gadoterate Meglumine (Clariscan) 17 ml 1X ONCE IVP Last administered on 01/27/21 14:54; Start 01/27/21 at 13:45; Stop 01/27/21 at 13:49; Status DC Senna/Docusate Sodium (Senna Plus) 1 tab BID PO Last administered on 01/28/21 22:29; Start 01/27/21 at 21:00 Polyethylene Glycol (miraLAX PACKET) 17 gm DAILY PO Last administered on 01/28/21 08:54; Start 01/28/21 at 09:00 Bisacodyl (Dulcolax Tab) 10 mg PRN DAILY PRN PO CONSTIPATION Last administered on 01/27/21 16:40; Start 01/27/21 at 16:15 Tamsulosin HCl (Flomax) 0.4 mg QHS PO Last administered on 01/28/21 22:29; Start 01/27/21 at 21:00 Polyethylene Glycol (miraLAX PACKET) 17 gm DAILY PO ; Start 01/27/21 at 16:15; Status UNV Senna/Docusate Sodium (Senna Plus) 1 tab DAILY PO ; Start 01/27/21 at 16:15; Status UNV Gabapentin (Neurontin) 300 mg QID PO Last administered on 01/28/21at 22:29; Start 01/28/21 at 09:30 Levothyroxine Sodium (Synthroid) 200 mcg DAILY06 PO Last administered on 01/29/21at 06:01; Start 01/28/21 at 09:30 Methadone HCl (Dolophine) 10 mg TID PO Last administered on 01/28/21at 22:37; Start 01/28/21 at 09:00 Daptomycin 450 mg/ Sodium Chloride 50 ml @ 100 mls/hr Q24H IV Last administered on 01/28/21at 13:07; Start 01/28/21 at 12:30 Meropenem 500 mg/ Sodium Chloride 50 ml @ 100 mls/hr Q8HRS IV Last administered on 01/29/21at 06:01; Start 01/28/21 at 14:00 Lidocaine HCl (Buffered Lidocaine 1%) 3 ml STK-MED ONCE .ROUTE ; Start 01/28/21 at 14:32; Stop 01/28/21 at 14:33; Status DC Lidocaine HCl (Buffered Lidocaine 1%) 3 ml 1X ONCE INJ Last administered on 01/28/21at 15:22; Start 01/28/21 at 15:15; Stop 01/28/21 at 15:16; Status DC Cyanocobalamin (Vitamin B-12 Inj) 1,000 mcg 1X ONCE IM ; Start 01/29/21 at 07:30; Stop 01/29/21 at 07:31; Status DC Active Scripts Active Percocet 5-325 Mg Tablet (Oxycodone/Acetaminophen) 1 Each Tablet 1 Tab PO PRN Q6HRS PRN 5 Days Metformin Hcl Er (Metformin Hcl) 500 Mg Tab.er.24h 500 Mg PO DAILYWBKFT 30 Days Reported Klonopin (Clonazepam) 1 Mg Tablet 1 Tab PO TID Trazodone Hcl 100 Mg Tablet 75 Mg PO HS Keflex (Cephalexin) 750 Mg Capsule 500 Mg PO TID Ferrous Sulfate 325 Mg Tablet 1 Tab PO BID Cyclobenzaprine Hcl 10 Mg Tablet 10 Mg PO HS Nifedipine Er (Nifedipine) 30 Mg Tablet.er 30 Mg PO HS Atenolol 50 Mg Tablet 50 Mg PO DAILY Losartan Potassium 100 Mg Tablet 100 Mg PO DAILY16 Colace (Docusate Sodium) 100 Mg Capsule 100 Mg PO DAILY Gabapentin 600 Mg Tablet 1,800 Mg PO BID Levothyroxine Sodium 200 Mcg Tablet 200 Mcg PO DAILYAC Hydrochlorothiazide Tablet (Hydrochlorothiazide) 25 Mg Tablet 50 Mg PO DAILY Vitals/I & O Vital Sign - Last 24 Hours 01/28/21 01/28/21 01/28/21 01/28/21 11:00 15:00 19:48 20:00 Temp 98.1 98.1 98.0 98.1 98.1 98.0 Pulse 88 84 90 Resp 20 20 20 B/P (MAP) 120/67 (84) 101/61 (74) 103/58 (73) Pulse Ox 94 97 99 O2 Delivery Room Air Room Air Room Air Room Air 01/28/21 01/29/21 01/29/21 23:08 03:16 07:00 Temp 97.7 98.3 98.1 97.7 98.3 98.1 Pulse 84 90 85 Resp 20 16 17 B/P (MAP) 125/69 (87) 110/62 (78) 126/63 (84) Pulse Ox 98 94 96 O2 Delivery Room Air Room Air Room Air Intake and Output 01/28/21 01/28/21 01/29/21 15:00 23:00 07:00 Intake Total 480 ml 290 ml 400 ml Output Total 1075 ml 250 ml Balance -595 ml 290 ml 150 ml Justifications for Admission Other Justification Lumbar spinal stenosis concerning for cauda equina syndrome RENETTA HOWARD MD Jan 29, 2021 09:38
--- NOTE | 2021-01-29 10:12 | PDOC ---
Infectious Disease Note Subjective Subjective Patient is feeling little better ROS ROS No nausea vomiting diarrhea chest pain shortness of breath fever chills. Pain is in the lower back not in the neck Vital Sign Vital Signs Vital Signs Date Time Temp Pulse Resp B/P (MAP) Pulse Ox O2 Delivery O2 Flow Rate FiO2 01/29/21 07:00 98.1 85 17 126/63 (84) 96 Room Air 98.1 Physical Exam PHYSICAL EXAM GENERAL: Alert, oriented gentleman, not in distress. VITAL SIGNS: Stable, afebrile. HEENT: NAD. NECK: Supple. No JVP, no lymphadenopathy. LUNGS: Clear. HEART: S1, S2 regular. ABDOMEN: Soft, nontender. No organomegaly. EXTREMITIES: No edema or cyanosis. SKIN: Unremarkable. NEUROLOGIC: The patient is alert, awake, and appropriate. No focal neurologic deficit. Does have a Coello catheter in place right now. Labs Lab Laboratory Tests Test 01/28/21 12:00 01/28/21 16:53 01/28/21 20:37 01/29/21 06:35 Haptoglobin 145 mg/dL (29-370) Glucose (Fingerstick) 97 mg/dL (70-99) 115 mg/dL (70-99) White Blood Count 4.6 x10^3/uL (4.0-11.0) Red Blood Count 2.09 x10^6/uL (4.30-5.70) Hemoglobin 6.6 g/dL (13.0-17.5) Hematocrit 19.6 % (39.0-53.0) Mean Corpuscular Volume 94 fL (79-100) Mean Corpuscular Hemoglobin 31 pg (25-35) Mean Corpuscular Hemoglobin Concent 34 g/dL (31-37) Red Cell Distribution Width 15.5 % (11.5-14.5) Platelet Count 79 x10^3/uL (140-400) Neutrophils (%) (Auto) 37 % (31-73) Lymphocytes (%) (Auto) 52 % (24-48) Monocytes (%) (Auto) 6 % (0-9) Eosinophils (%) (Auto) 4 % (0-3) Basophils (%) (Auto) 1 % (0-3) Neutrophils # (Auto) 1.7 x10^3/uL (1.8-7.7) Lymphocytes # (Auto) 2.4 x10^3/uL (1.0-4.8) Monocytes # (Auto) 0.3 x10^3/uL (0.0-1.1) Eosinophils # (Auto) 0.2 x10^3/uL (0.0-0.7) Basophils # (Auto) 0.0 x10^3/uL (0.0-0.2) Sodium Level 142 mmol/L (136-145) Potassium Level 4.0 mmol/L (3.5-5.1) Chloride Level 105 mmol/L (98-107) Carbon Dioxide Level 32 mmol/L (21-32) Anion Gap 5 (6-14) Blood Urea Nitrogen 21 mg/dL (8-26) Creatinine 1.0 mg/dL (0.7-1.3) Estimated GFR (Cockcroft-Gault) 76.5 Glucose Level 83 mg/dL (70-99) Calcium Level 8.4 mg/dL (8.5-10.1) Creatine Kinase 19 U/L (39-308) Test 01/29/21 07:22 Glucose (Fingerstick) 81 mg/dL (70-99) Micro Microbiology 01/26/21 Urine Culture - Final, Complete Objective Assessment IMPRESSION: 1. Back pain, most likely is musculoskeletal. With new findings on MRI possible reactivation or new infection 2. Urinary retention. 3. History of methicillin-susceptible Staphylococcus aureus bacteremia and extensive spinal infection in October. 4. Hypertension. Plan Plan of Care C spine and T spine MRI noted, with new epidural and other collection, ?? post surgery changes, ? new infection or reactivation of infection pt clinically does not have any signs of infection of infection, sed rate and crp not very high no other clinical evidence for infection Discussed with Dr. Bowie he is concerned about infection with the new changes so we decided we will treat with a new full course of IV antibiotics. The area and the amount of fluid collection is not enough for us to be able to obtain the sample KIRK CAMARILLO MD Jan 29, 2021 10:12
--- NOTE | 2021-01-29 11:01 | NUR ---
SW following. Discussed with RN, pt from home family, room air, ada diet. Pt getting blood today. Pt needing [employer] IV abx. SW met with pt, pt aware he is out of skilled days and stated he cannot afford to pay the copay. Pt states he has done home infusion before. Pt mentioned that there is a lot of stuff in his home, but not like hoarding, just a big dresser etc. Pt does not want to consider [employer] care at this time, but is agreeable to [facility] working on a medicaid application with him. SW notified Caesar Gutierrez RN. [facility] will continue to follow.
[2021-01-29] MEDS: DAPTOmycin (GENERIC) IVPB 450 MG in IV NORMAL SALINE 50ML 50 ML IV SCH (12:54)
[2021-01-29] MEDS: ACETAMINOPHEN 325 MG TABLET. PO PRN (12:59)
[2021-01-29 14:35] LABS: HEMATOCRIT 22.4 % (39.0-53.0); HEMOGLOBIN 7.6 g/dL (13.0-17.5); RED BLOOD COUNT 2.42 x10^6/uL (4.30-5.70); RED CELL DISTRIBUTION WIDTH 15.5 % (11.5-14.5); WHITE BLOOD COUNT 5.5 x10^3/uL (4.0-11.0)
[2021-01-29 15:17] LABS: ALBUM 3.6 g/dL (2.9-4.4); ALPHA 1 0.2 g/dL (0.0-0.4); ALPHA 2 0.6 g/dL (0.4-1.0); GAMMA 1.1 g/dL (0.4-1.8); PROTEIN TOTAL 6.5 g/dL (6.0-8.5); SPEP AG RATIO 1.2 (0.7-1.7)
[2021-01-29 16:11] LABS: KAPPA FREE 41.2 mg/L (3.3-19.4); KAPPA LAMBDA RATIO 1.29 (0.26-1.65)
[2021-01-29] MEDS: traZODone 50 MG TABLET. PO SCH (20:27)
[2021-01-29] MEDS: TAMSULOSIN 0.4 MG CAP.ER.24H. PO SCH (20:27)
[2021-01-29] MEDS: clonazePAM 0.5 MG TABLET PO PRN (20:28)
[2021-01-30] VITALS (10 sets, daily range): BP systolic 98–141; BP diastolic 54–84
[2021-01-30] MEDS: ACETAMINOPHEN 325 MG TABLET. PO PRN ×2 (06:04→11:15)
[2021-01-30] MEDS: LEVOTHYROXINE 100 MCG TABLET PO SCH (06:04)
[2021-01-30] MEDS: MEROPENEM 500 MG in IV NORMAL SALINE 50ML 50 ML IV SCH ×2 (06:04→19:22)
[2021-01-30] MEDS: HEPARIN for SUB-Q USE 5,000 UNIT/ML VIAL. SQ SCH ×3 (06:10→22:27)
[2021-01-30 06:37] LABS: CALCIUM 8.2 mg/dL (8.5-10.1); CREATININE 0.8 mg/dL (0.7-1.3); GFR 98.9; POTASSIUM 3.7 mmol/L (3.5-5.1)
[2021-01-30 06:42] LABS: BASO % 1 % (0-3); EOS # 0.3 x10^3/uL (0.0-0.7); EOS % 6 % (0-3); LYMPH # 2.2 x10^3/uL (1.0-4.8); LYMPH % 43 % (24-48); MEAN CORPUSCULAR HEMOGLOBIN 31 pg (25-35); MEAN CORPUSCULAR HGB CONC 33 g/dL (31-37); MEAN CORPUSCULAR VOLUME 93 fL (79-100); MONO # 0.4 x10^3/uL (0.0-1.1); MONO % 7 % (0-9); NEUT # 2.1 x10^3/uL (1.8-7.7); NEUT % 43 % (31-73); PLATELET COUNT 82 x10^3/uL (140-400); RED CELL DISTRIBUTION WIDTH 15.3 % (11.5-14.5)
[2021-01-30 06:49] LABS: HEMATOCRIT 20.5 % (39.0-53.0); HEMOGLOBIN 6.8 g/dL (13.0-17.5)
[2021-01-30] MEDS: LACTOBACILLUS RHAMNOSUS GG 1 CAPSULE. PO SCH ×2 (09:00→21:04)
[2021-01-30] MEDS: METHADONE 10 MG TABLET. PO SCH ×3 (09:33→21:04)
[2021-01-30] MEDS: CEPHALEXIN 250 MG CAPSULE. PO SCH (09:33)
[2021-01-30] MEDS: POLYETHYLENE GLYCOL 3350 17 GM PACKET. PO SCH (09:34)
[2021-01-30] MEDS: SENNOSIDES/DOCUSATE 8.6/50MG TABLET. PO SCH ×2 (09:34→21:04)
[2021-01-30] MEDS: GABAPENTIN 300 MG CAPSULE. PO SCH ×4 (09:34→21:04)
[2021-01-30] MEDS: DAPTOmycin (GENERIC) IVPB 450 MG in IV NORMAL SALINE 50ML 50 ML IV SCH (13:24)
--- NOTE | 2021-01-30 13:59 | PDOC ---
PROGRESS NOTES Date of Service DATE: 01/30/21 TIME: 13:57 Subjective Subjective No new complaints. Objective Objective Vital Signs Date Time Temp Pulse Resp B/P (MAP) Pulse Ox O2 Delivery O2 Flow Rate FiO2 01/30/21 11:00 98.3 88 16 111/62 (78) 94 Nasal Cannula 2.0 98.3 Intake and Output 01/30/21 07:00 Intake Total 860 ml Output Total 300 ml Balance 560 ml Intake Oral 760 ml IV Total 100 ml Output Urine Total 300 ml # Voids 1 Physical Exam Physical Exam He is supine in bed with head end of bed elevated and he is under standby assistance to supervision with bed mobility,transfers and walking with roller walker up to 45' Assessment Assessment Problems Medical Problems: (1) Urinary retention Status: Acute Plan Plan of Care To continue present rehab efforts as tolerated. Comment Review of Relevant I have reviewed the following items almas (where applicable) has been applied. Labs Laboratory Tests Test 01/28/21 16:53 01/28/21 20:37 01/29/21 06:35 01/29/21 07:22 Glucose (Fingerstick) 97 mg/dL (70-99) 115 mg/dL (70-99) 81 mg/dL (70-99) White Blood Count 4.6 x10^3/uL (4.0-11.0) Red Blood Count 2.09 x10^6/uL (4.30-5.70) Hemoglobin 6.6 g/dL (13.0-17.5) Hematocrit 19.6 % (39.0-53.0) Mean Corpuscular Volume 94 fL (79-100) Mean Corpuscular Hemoglobin 31 pg (25-35) Mean Corpuscular Hemoglobin Concent 34 g/dL (31-37) Red Cell Distribution Width 15.5 % (11.5-14.5) Platelet Count 79 x10^3/uL (140-400) Neutrophils (%) (Auto) 37 % (31-73) Lymphocytes (%) (Auto) 52 % (24-48) Monocytes (%) (Auto) 6 % (0-9) Eosinophils (%) (Auto) 4 % (0-3) Basophils (%) (Auto) 1 % (0-3) Neutrophils # (Auto) 1.7 x10^3/uL (1.8-7.7) Lymphocytes # (Auto) 2.4 x10^3/uL (1.0-4.8) Monocytes # (Auto) 0.3 x10^3/uL (0.0-1.1) Eosinophils # (Auto) 0.2 x10^3/uL (0.0-0.7) Basophils # (Auto) 0.0 x10^3/uL (0.0-0.2) Sodium Level 142 mmol/L (136-145) Potassium Level 4.0 mmol/L (3.5-5.1) Chloride Level 105 mmol/L (98-107) Carbon Dioxide Level 32 mmol/L (21-32) Anion Gap 5 (6-14) Blood Urea Nitrogen 21 mg/dL (8-26) Creatinine 1.0 mg/dL (0.7-1.3) Estimated GFR (Cockcroft-Gault) 76.5 Glucose Level 83 mg/dL (70-99) Calcium Level 8.4 mg/dL (8.5-10.1) Creatine Kinase 19 U/L (39-308) Test 01/29/21 11:40 01/29/21 14:25 01/30/21 06:00 Glucose (Fingerstick) 116 mg/dL (70-99) White Blood Count 5.5 x10^3/uL (4.0-11.0) 5.0 x10^3/uL (4.0-11.0) Red Blood Count 2.42 x10^6/uL (4.30-5.70) 2.20 x10^6/uL (4.30-5.70) Hemoglobin 7.6 g/dL (13.0-17.5) 6.8 g/dL (13.0-17.5) Hematocrit 22.4 % (39.0-53.0) 20.5 % (39.0-53.0) Mean Corpuscular Volume 93 fL (79-100) 93 fL (79-100) Mean Corpuscular Hemoglobin 32 pg (25-35) 31 pg (25-35) Mean Corpuscular Hemoglobin Concent 34 g/dL (31-37) 33 g/dL (31-37) Red Cell Distribution Width 15.5 % (11.5-14.5) 15.3 % (11.5-14.5) Platelet Count 87 x10^3/uL (140-400) 82 x10^3/uL (140-400) Neutrophils (%) (Auto) 43 % (31-73) Lymphocytes (%) (Auto) 43 % (24-48) Monocytes (%) (Auto) 7 % (0-9) Eosinophils (%) (Auto) 6 % (0-3) Basophils (%) (Auto) 1 % (0-3) Neutrophils # (Auto) 2.1 x10^3/uL (1.8-7.7) Lymphocytes # (Auto) 2.2 x10^3/uL (1.0-4.8) Monocytes # (Auto) 0.4 x10^3/uL (0.0-1.1) Eosinophils # (Auto) 0.3 x10^3/uL (0.0-0.7) Basophils # (Auto) 0.0 x10^3/uL (0.0-0.2) Sodium Level 142 mmol/L (136-145) Potassium Level 3.7 mmol/L (3.5-5.1) Chloride Level 106 mmol/L (98-107) Carbon Dioxide Level 31 mmol/L (21-32) Anion Gap 5 (6-14) Blood Urea Nitrogen 15 mg/dL (8-26) Creatinine 0.8 mg/dL (0.7-1.3) Estimated GFR (Cockcroft-Gault) 98.9 Glucose Level 92 mg/dL (70-99) Calcium Level 8.2 mg/dL (8.5-10.1) Laboratory Tests Test 01/29/21 14:25 01/30/21 06:00 White Blood Count 5.5 x10^3/uL (4.0-11.0) 5.0 x10^3/uL (4.0-11.0) Red Blood Count 2.42 x10^6/uL (4.30-5.70) 2.20 x10^6/uL (4.30-5.70) Hemoglobin 7.6 g/dL (13.0-17.5) 6.8 g/dL (13.0-17.5) Hematocrit 22.4 % (39.0-53.0) 20.5 % (39.0-53.0) Mean Corpuscular Volume 93 fL (79-100) 93 fL (79-100) Mean Corpuscular Hemoglobin 32 pg (25-35) 31 pg (25-35) Mean Corpuscular Hemoglobin Concent 34 g/dL (31-37) 33 g/dL (31-37) Red Cell Distribution Width 15.5 % (11.5-14.5) 15.3 % (11.5-14.5) Platelet Count 87 x10^3/uL (140-400) 82 x10^3/uL (140-400) Neutrophils (%) (Auto) 43 % (31-73) Lymphocytes (%) (Auto) 43 % (24-48) Monocytes (%) (Auto) 7 % (0-9) Eosinophils (%) (Auto) 6 % (0-3) Basophils (%) (Auto) 1 % (0-3) Neutrophils # (Auto) 2.1 x10^3/uL (1.8-7.7) Lymphocytes # (Auto) 2.2 x10^3/uL (1.0-4.8) Monocytes # (Auto) 0.4 x10^3/uL (0.0-1.1) Eosinophils # (Auto) 0.3 x10^3/uL (0.0-0.7) Basophils # (Auto) 0.0 x10^3/uL (0.0-0.2) Sodium Level 142 mmol/L (136-145) Potassium Level 3.7 mmol/L (3.5-5.1) Chloride Level 106 mmol/L (98-107) Carbon Dioxide Level 31 mmol/L (21-32) Anion Gap 5 (6-14) Blood Urea Nitrogen 15 mg/dL (8-26) Creatinine 0.8 mg/dL (0.7-1.3) Estimated GFR (Cockcroft-Gault) 98.9 Glucose Level 92 mg/dL (70-99) Calcium Level 8.2 mg/dL (8.5-10.1) Microbiology 01/26/21 Urine Culture - Final, Complete Medications Current Medications Iohexol (Omnipaque 300 Mg/ml) 75 ml 1X ONCE IV Last administered on 01/26/21at 14:54; Start 01/26/21 at 14:30; Stop 01/26/21 at 14:31; Status DC Info (CONTRAST GIVEN -- Rx MONITORING) 1 each PRN DAILY PRN MC SEE COMMENTS; Start 01/26/21 at 14:30; Stop 01/28/21 at 14:29; Status DC Fentanyl Citrate (Fentanyl 2ml Vial) 50 mcg 1X ONCE IV Last administered on 01/26/21at 14:59; Start 01/26/21 at 14:30; Stop 01/26/21 at 14:31; Status DC Ondansetron HCl (Zofran) 4 mg 1X ONCE IV Last administered on 01/26/21at 14:59; Start 01/26/21 at 14:30; Stop 01/26/21 at 14:31; Status DC Insulin Human Lispro (HumaLOG) 0-7 UNITS TIDWMEALS SQ ; Start 01/27/21 at 08:00; Stop 01/29/21 at 11:43; Status DC Dextrose (Dextrose 50%-Water Syringe) 12.5 gm PRN Q15MIN PRN IV SEE COMMENTS; Start 01/26/21 at 18:15; Stop 01/29/21 at 11:43; Status DC Dextrose (Iv Dextrose 5%) 250 ml PRN Q15MIN PRN IV SEE COMMENTS; Start 01/26/21 at 18:15; Status UNV Ondansetron HCl (Zofran) 4 mg PRN Q6HRS PRN IVP NAUSEA/VOMITING Last administered on 01/28/21at 04:08; Start 01/26/21 at 18:15 Al Hydroxide/Mg Hydroxide (Mylanta Plus Xs) 30 ml PRN Q3HRS PRN PO HEARTBURN / GAS; Start 01/26/21 at 18:15 Calcium Carbonate/ Glycine (Tums) 500 mg PRN Q3HRS PRN PO UPSET STOMACH; Start 01/26/21 at 18:15 Zolpidem Tartrate (Ambien) 5 mg PRN QHS PRN PO INSOMNIA, MAY REPEAT IN 1HR Last administered on 01/27/21at 23:55; Start 01/26/21 at 18:15 Morphine Sulfate (Morphine Sulfate) 2 mg PRN Q1HR PRN IV MODERATE PAIN Last administered on 01/26/21at 19:27; Start 01/26/21 at 18:15; Stop 01/28/21 at 09:01; Status DC Acetaminophen/ Hydrocodone Bitart (Lortab 5/325) 1 tab PRN Q4HRS PRN PO MILD PAIN 1-3; Start 01/26/21 at 18:15; Stop 01/28/21 at 09:01; Status DC Acetaminophen/ Hydrocodone Bitart (Lortab 5/325) 2 tab PRN Q4HRS PRN PO MODERATE PAIN Last administered on 01/28/21at 04:39; Start 01/26/21 at 18:15; Stop 01/28/21 at 09:01; Status DC Hydromorphone HCl (Dilaudid) 2 mg PRN Q4HRS PRN PO MODERATE PAIN, 2ND CHOICE; Start 01/26/21 at 18:15; Stop 01/28/21 at 09:01; Status DC Hydromorphone HCl (Dilaudid) 4 mg PRN Q4HRS PRN PO SEVERE PAIN; Start 01/26/21 at 18:15; Stop 01/28/21 at 09:01; Status DC Acetaminophen (Tylenol) 650 mg PRN Q6HRS PRN PO Headaches, Temp > 101.5F Last administered on 01/30/21at 11:15; Start 01/26/21 at 18:15 Magnesium Hydroxide (Milk Of Magnesia) 2,400 mg PRN Q12HR PRN PO CONSTIPATION (1st Choice) Last administered on 01/27/21at 16:39; Start 01/26/21 at 18:15 Bisacodyl (Dulcolax Supp) 10 mg PRN DAILY PRN MS CONSTIPATION; Start 01/26/21 at 18:15 Heparin Sodium (Porcine) (Heparin Sodium) 5,000 unit Q8HRS SQ Last administered on 01/30/21at 06:10; Start 01/26/21 at 22:00 Hydromorphone HCl (Dilaudid) 2 mg PRN Q4HRS PRN IVP SEVERE PAIN Last administered on 01/27/21at 09:37; Start 01/26/21 at 18:15; Stop 01/28/21 at 09:01; Status DC Lorazepam (Ativan Inj) 2 mg PRN Q4HRS PRN IVP ANXIETY / AGITATION Last administered on 01/30/21at 11:17; Start 01/26/21 at 18:15 Trazodone HCl (Desyrel) 75 mg HS PO Last administered on 01/29/21 20:27; Start 01/26/21 at 21:30 Clonazepam (KlonoPIN) 1 mg TID PO Last administered on 01/27/21 09:32; Start 01/26/21 at 21:30; Stop 01/27/21 at 13:36; Status DC Cephalexin HCl (Keflex) 500 mg TID PO Last administered on 01/30/21 09:33; Start 01/27/21 at 09:00; Stop 01/30/21 at 13:51; Status DC Lactobacillus Rhamnosus (Culturelle) 1 cap BID PO Last administered on 01/19 10/11at 09:00; Start 01/27/21 at 21:00 Clonazepam (KlonoPIN) 1 mg PRN TID PRN PO anxiety Last administered on 01/29/21 20:28; Start 01/27/21 at 13:45 Gadoterate Meglumine (Clariscan) 17 ml 1X ONCE IVP Last administered on 01/27/21 14:54; Start 01/27/21 at 13:45; Stop 01/27/21 at 13:49; Status DC Senna/Docusate Sodium (Senna Plus) 1 tab BID PO Last administered on 01/30/21 09:34; Start 01/27/21 at 21:00 Polyethylene Glycol (miraLAX PACKET) 17 gm DAILY PO Last administered on 01/30/21 09:34; Start 01/28/21 at 09:00 Bisacodyl (Dulcolax Tab) 10 mg PRN DAILY PRN PO CONSTIPATION (2nd Choice) Last administered on 01/27/21at 16:40; Start 01/27/21 at 16:15 Tamsulosin HCl (Flomax) 0.4 mg QHS PO Last administered on 01/29/21 20:27; Start 01/27/21 at 21:00 Polyethylene Glycol (miraLAX PACKET) 17 gm DAILY PO ; Start 01/27/21 at 16:15; Status UNV Senna/Docusate Sodium (Senna Plus) 1 tab DAILY PO ; Start 01/27/21 at 16:15; Status UNV Gabapentin (Neurontin) 300 mg QID PO Last administered on 01/30/21at 13:24; Start 01/28/21 at 09:30 Levothyroxine Sodium (Synthroid) 200 mcg DAILY06 PO Last administered on 01/30/21at 06:04; Start 01/28/21 at 09:30 Methadone HCl (Dolophine) 10 mg TID PO Last administered on 01/30/21at 09:33; Start 01/28/21 at 09:00 Daptomycin 450 mg/ Sodium Chloride 50 ml @ 100 mls/hr Q24H IV Last administered on 01/30/21at 13:24; Start 01/28/21 at 12:30 Meropenem 500 mg/ Sodium Chloride 50 ml @ 100 mls/hr Q8HRS IV Last administered on 01/30/21at 06:04; Start 01/28/21 at 14:00 Lidocaine HCl (Buffered Lidocaine 1%) 3 ml STK-MED ONCE .ROUTE ; Start 01/28/21 at 14:32; Stop 01/28/21 at 14:33; Status DC Lidocaine HCl (Buffered Lidocaine 1%) 3 ml 1X ONCE INJ Last administered on 01/28/21at 15:22; Start 01/28/21 at 15:15; Stop 01/28/21 at 15:16; Status DC Cyanocobalamin (Vitamin B-12 Inj) 1,000 mcg 1X ONCE IM Last administered on 01/29/21at 09:28; Start 01/29/21 at 07:30; Stop 01/29/21 at 07:31; Status DC Active Scripts Active Percocet 5-325 Mg Tablet (Oxycodone/Acetaminophen) 1 Each Tablet 1 Tab PO PRN Q6HRS PRN 5 Days Metformin Hcl Er (Metformin Hcl) 500 Mg Tab.er.24h 500 Mg PO DAILYWBKFT 30 Days Reported Klonopin (Clonazepam) 1 Mg Tablet 1 Tab PO TID Trazodone Hcl 100 Mg Tablet 75 Mg PO HS Keflex (Cephalexin) 750 Mg Capsule 500 Mg PO TID Ferrous Sulfate 325 Mg Tablet 1 Tab PO BID Cyclobenzaprine Hcl 10 Mg Tablet 10 Mg PO HS Nifedipine Er (Nifedipine) 30 Mg Tablet.er 30 Mg PO HS Atenolol 50 Mg Tablet 50 Mg PO DAILY Losartan Potassium 100 Mg Tablet 100 Mg PO DAILY16 Colace (Docusate Sodium) 100 Mg Capsule 100 Mg PO DAILY Gabapentin 600 Mg Tablet 1,800 Mg PO BID Levothyroxine Sodium 200 Mcg Tablet 200 Mcg PO DAILYAC Hydrochlorothiazide Tablet (Hydrochlorothiazide) 25 Mg Tablet 50 Mg PO DAILY Vitals/I & O Vital Sign - Last 24 Hours 01/29/21 01/29/21 01/29/21 01/29/21 14:08 15:00 19:00 20:00 Temp 98.4 98.2 98.3 98.4 98.2 98.3 Pulse 105 103 85 Resp 16 17 18 B/P (MAP) 128/75 137/75 (95) 109/63 (78) Pulse Ox 95 92 O2 Delivery Room Air Room Air 01/29/21 01/30/21 01/30/21 01/30/21 23:00 03:00 07:31 09:27 Temp 98.6 98.6 98.1 98.6 98.6 98.6 98.1 98.6 Pulse 89 89 75 75 Resp 16 18 14 14 B/P (MAP) 110/63 (79) 111/59 (76) 98/63 (75) 98/63 Pulse Ox 92 92 O2 Delivery Room Air 01/30/21 01/30/21 01/30/21 09:50 10:42 11:00 Temp 98.2 98.2 98.3 98.2 98.2 98.3 Pulse 101 93 88 Resp 12 18 16 B/P (MAP) 115/61 114/66 111/62 (78) Pulse Ox 94 O2 Delivery Nasal Cannula O2 Flow Rate 2.0 Intake and Output 01/29/21 01/29/21 01/30/21 15:00 23:00 07:00 Intake Total 180 ml 430 ml 250 ml Output Total 300 ml Balance 180 ml 430 ml -50 ml Justifications for Admission Other Justification Lumbar spinal stenosis concerning for cauda equina syndrome RENETTA HOWARD MD Jan 30, 2021 13:59
--- NOTE | 2021-01-30 15:03 | PDOC ---
[facility] PROGRESS NOTE Date of Service DOS: DATE: 01/30/21 TIME: 15:02 Chief Complaint Chief Complaint A/P: L2-L5 spinal canal stenosis with urinary retention History osteomyelitis DM2 Normocytic anemia Hypothyroidism Chronic pain Right total knee replacement History of femur fracture October 2020 osteomyelitis T11-12 - MRI changes in cervical and thoracic spine likely needs IV treatment Plan: Will resume his current antibiotic treatment Hemoglobin & hematocrit 8.8 and 25.6 respectively (11/16/2020); hemoglobin 7.1 and hematocrit 22.9 on admission. Will continue to monitor and transfuse as needed. Resume home medications FEN - Cardiac diet PPX - Heparin FULL CODE Dispo - inpatient for above Advance Care Planning: Total time spent [id number] with patient 16 minutes in discussion with goals of care, comfort care, end-of-life care, pain management, code status; patient names his (Radha Padilla) as surrogate decision-maker. History of Present Illness History of Present Illness Mr Byrnes is a 61-year-old male PMHx hypothyroidism, chronic pain, hernia, back surgery, right total knee replacement, and history of femur fracture and October 2020 osteomyelitis s/p cervical, thoracic, and lumbar epidural abscess drainage who presents to the ED with complaints of urinary retention. Patient states he has not urinated in the past 2 days prior to admit with associated bladder distention. He was recently admitted on 11/02/2020 for spinal epidural abscess, paraspinal cervical abscess, and osteomyelitis. He states he is currently on an antibiotic 3 times daily, but cannot member the name of this antibiotic. CT lumbar spine obtained in the ED showed redemonstrated changes of discitis osteomyelitis at L3-L4 with at least moderate spinal canal stenosis at that level L2-L5. Coello catheter was placed in the ED with reportedly 1000 mL urine output. Patient states he feels significantly better after having Coello placed, but is also reports chronic right knee pain. He has had right knee pain over this past 3 years since total knee replacement, but states his pain is worsened over the past 3 days causing him difficulty moving. States his knee is slightly more mobile after pain medication he received in the ED. Neurosurgery was consulted in the ED and requesting admission. Admitted patient for further medical management. 01/27: Afebrile. Discussed with neurosurgery and ID his recent MRI is actually improved. He discloses to me that prior to his complicated hospital stay he had actually been weaned down from 150 mg daily of methadone for chronic pain to 10 mg 3 times daily and has had trouble having anyone to prescribe methadone for him. He continues to ask for pain medication regularly. Discussed complications of urinary retention related to chronic opioid therapy. 01/28: Afebrile. Platelets still low normal still low. Coello out today start on methadone per PMR. MRI reviewed with ID and neurosurgery, given MRI findings and thoracic and cervical areas changed likely persistent infection. Voiding trial today. PICC inserted 01/29: Afebrile overnight. Hemoglobin dropped below 7. Pain better controlled on methadone. No residual on PVR. 1u PRBC with good effect Afebrile. Hb dropped to 6.8 again. 11 unit of blood transfusing. He actually feels better on the methadone is a little bit stronger. No more urinary retention. Vitals/I&O Vitals/I&O: Vital Signs Date Time Temp Pulse Resp B/P (MAP) Pulse Ox O2 Delivery O2 Flow Rate FiO2 01/30/21 11:42 98.3 88 16 111/62 98.3 01/30/21 11:00 94 Nasal Cannula 2.0 I & O 01/29/21 01/29/21 01/30/21 15:00 23:00 07:00 Intake Total 180 ml 430 ml 250 ml Output Total 300 ml Balance 180 ml 430 ml -50 ml Physical Exam Physical Exam: GENERAL: Alert, oriented gentleman, not in distress. VITAL SIGNS: Stable, afebrile. HEENT: NAD. NECK: Supple. No JVP, no lymphadenopathy. LUNGS: Clear. HEART: S1, S2 regular. ABDOMEN: Soft, nontender. No organomegaly. EXTREMITIES: No edema or cyanosis. SKIN: Unremarkable. NEUROLOGIC: The patient is alert, awake, and appropriate. No focal neurologic deficit. Does have a Coello catheter in place right now. General: Alert, Cooperative Lungs: Clear Labs Labs: Laboratory Tests Test 01/30/21 06:00 White Blood Count 5.0 x10^3/uL (4.0-11.0) Red Blood Count 2.20 x10^6/uL (4.30-5.70) Hemoglobin 6.8 g/dL (13.0-17.5) Hematocrit 20.5 % (39.0-53.0) Mean Corpuscular Volume 93 fL (79-100) Mean Corpuscular Hemoglobin 31 pg (25-35) Mean Corpuscular Hemoglobin Concent 33 g/dL (31-37) Red Cell Distribution Width 15.3 % (11.5-14.5) Platelet Count 82 x10^3/uL (140-400) Neutrophils (%) (Auto) 43 % (31-73) Lymphocytes (%) (Auto) 43 % (24-48) Monocytes (%) (Auto) 7 % (0-9) Eosinophils (%) (Auto) 6 % (0-3) Basophils (%) (Auto) 1 % (0-3) Neutrophils # (Auto) 2.1 x10^3/uL (1.8-7.7) Lymphocytes # (Auto) 2.2 x10^3/uL (1.0-4.8) Monocytes # (Auto) 0.4 x10^3/uL (0.0-1.1) Eosinophils # (Auto) 0.3 x10^3/uL (0.0-0.7) Basophils # (Auto) 0.0 x10^3/uL (0.0-0.2) Sodium Level 142 mmol/L (136-145) Potassium Level 3.7 mmol/L (3.5-5.1) Chloride Level 106 mmol/L (98-107) Carbon Dioxide Level 31 mmol/L (21-32) Anion Gap 5 (6-14) Blood Urea Nitrogen 15 mg/dL (8-26) Creatinine 0.8 mg/dL (0.7-1.3) Estimated GFR (Cockcroft-Gault) 98.9 Glucose Level 92 mg/dL (70-99) Calcium Level 8.2 mg/dL (8.5-10.1) Assessment and Plan Assessmemt and Plan Problems Medical Problems: (1) Urinary retention Status: Acute Comment Review of Relevant I have reviewed the following items almas (where applicable) has been applied. Justifications for Admission Other Justification Lumbar spinal stenosis concerning for cauda equina syndrome WARD ESTEVEZ MD Jan 30, 2021 15:03
--- NOTE | 2021-01-30 16:08 | PDOC ---
Infectious Disease Note Subjective Subjective Anemic s/p PRBCs Back pain some better some right thigh and knee pain earlier Denies difficult urinating. No loss of bowel/bladder control Denies fever/chills/N/V/D/rash ROS ROS as mentioned above Vital Sign Vital Signs Vital Signs Date Time Temp Pulse Resp B/P (MAP) Pulse Ox O2 Delivery O2 Flow Rate FiO2 01/30/21 11:42 98.3 88 16 111/62 98.3 01/30/21 11:00 94 Nasal Cannula 2.0 Physical Exam PHYSICAL EXAM GENERAL: Propped up in bed, alert appears comfortable HEENT: Normal conjunctivae. Oral cavity clear NECK: Supple. No JVP, no lymphadenopathy. LUNGS: Clear. HEART: S1, S2 regular. ABDOMEN: Soft, nontender. EXTREMITIES: No edema or cyanosis. Right knee wo redness/warmth/swelling. SKIN: No signs of rash. NEUROLOGIC: Alert, awake, and appropriate. RUE-PICC (01/28) clean Labs Lab Laboratory Tests Test 01/30/21 06:00 White Blood Count 5.0 x10^3/uL (4.0-11.0) Red Blood Count 2.20 x10^6/uL (4.30-5.70) Hemoglobin 6.8 g/dL (13.0-17.5) Hematocrit 20.5 % (39.0-53.0) Mean Corpuscular Volume 93 fL (79-100) Mean Corpuscular Hemoglobin 31 pg (25-35) Mean Corpuscular Hemoglobin Concent 33 g/dL (31-37) Red Cell Distribution Width 15.3 % (11.5-14.5) Platelet Count 82 x10^3/uL (140-400) Neutrophils (%) (Auto) 43 % (31-73) Lymphocytes (%) (Auto) 43 % (24-48) Monocytes (%) (Auto) 7 % (0-9) Eosinophils (%) (Auto) 6 % (0-3) Basophils (%) (Auto) 1 % (0-3) Neutrophils # (Auto) 2.1 x10^3/uL (1.8-7.7) Lymphocytes # (Auto) 2.2 x10^3/uL (1.0-4.8) Monocytes # (Auto) 0.4 x10^3/uL (0.0-1.1) Eosinophils # (Auto) 0.3 x10^3/uL (0.0-0.7) Basophils # (Auto) 0.0 x10^3/uL (0.0-0.2) Sodium Level 142 mmol/L (136-145) Potassium Level 3.7 mmol/L (3.5-5.1) Chloride Level 106 mmol/L (98-107) Carbon Dioxide Level 31 mmol/L (21-32) Anion Gap 5 (6-14) Blood Urea Nitrogen 15 mg/dL (8-26) Creatinine 0.8 mg/dL (0.7-1.3) Estimated GFR (Cockcroft-Gault) 98.9 Glucose Level 92 mg/dL (70-99) Calcium Level 8.2 mg/dL (8.5-10.1) Micro Objective Assessment Back pain, most likely is musculoskeletal. With new findings on MRI possible reactivation or new infection Urinary retention. History of MSSA bacteremia and extensive spinal infection in October 2020. Hypertension. Anemia s/p PRBCs Plan Plan of Care C spine and T spine MRI noted, with new epidural and other collection, ?? post surgery changes, ? new infection or reactivation of infection pt clinically does not have any signs of infection of infection, sed rate and crp not very high no other clinical evidence for infection Dr. Bowie concerned about infection with the new changes so decision made to treat with a new full course of IV antibiotics. The area and the amount of fluid collection is not enough for us to be able to obtain the sample Continue dapto and meropenem. Monitor labs/temp Pain management per primary Discussed with nursing Increased Meropenem frequency to q 6 Add Micafungin F/u labs D/w Dr. Edgar Guadarrama has been consulted D/w nursing Attending Co-Sign Attending Co-Sign The patient was seen and interviewed as well as examined at the bedside. The chart was reviewed. The case was discussed. Agree with the plan of care. GENESIS GONZALES APRN Jan 30, 2021 16:08 MAURI WILDE MD Jan 30, 2021 16:10
[2021-01-30] MEDS: MICAFUNGIN 100 MG in IV DEXTROSE 5% 100ML 100 ML IV SCH (17:00)
[2021-01-30] MEDS: TAMSULOSIN 0.4 MG CAP.ER.24H. PO SCH (21:04)
[2021-01-30] MEDS: traZODone 50 MG TABLET. PO SCH (21:04)
[2021-01-30] MEDS: clonazePAM 0.5 MG TABLET PO PRN (21:04)
[2021-01-31] MEDS: MEROPENEM 500 MG in IV NORMAL SALINE 50ML 50 ML IV SCH ×4 (00:05→19:19)
[2021-01-31 02:57] VITALS: BP 133/67
[2021-01-31] MEDS: LEVOTHYROXINE 100 MCG TABLET PO SCH (06:13)
[2021-01-31] MEDS: HEPARIN for SUB-Q USE 5,000 UNIT/ML VIAL. SQ SCH ×3 (06:18→22:05)
--- NOTE | 2021-01-31 06:43 | PDOC ---
Infectious Disease Note Subjective Subjective Anemic s/p PRBCs Back pain some better - can move legs better some right thigh and knee pain earlier Denies difficult urinating. No loss of bowel/bladder control Denies fever/chills/N/V/D/rash ROS ROS o/w neg Vital Sign Vital Signs Vital Signs Date Time Temp Pulse Resp B/P (MAP) Pulse Ox O2 Delivery O2 Flow Rate FiO2 01/31/21 02:57 98.0 87 16 133/67 (89) 92 Room Air 98.0 01/30/21 11:00 2.0 Physical Exam PHYSICAL EXAM GENERAL: Propped up in bed, alert appears comfortable HEENT: Normal conjunctivae. Oral cavity clear NECK: Supple. No JVP, no lymphadenopathy. LUNGS: Clear. HEART: S1, S2 regular. ABDOMEN: Soft, nontender. EXTREMITIES: No edema or cyanosis. Right knee wo redness/warmth/swelling. SKIN: No signs of gen rash. Groin yeast some better NEUROLOGIC: Alert, awake, and appropriate. RUE-PICC (01/28) clean Labs Micro Microbiology 01/26/21 Urine Culture - Final, Complete Objective Assessment Back pain, most likely is musculoskeletal. With new findings on MRI possible reactivation or new infection Urinary retention. History of MSSA bacteremia and extensive spinal infection in October 2020. Hypertension. Anemia s/p PRBCs Yeast in groin Plan Plan of Care C spine and T spine MRI noted, with new epidural and other collection, ?? post surgery changes, ? new infection or reactivation of infection pt clinically does not have any signs of infection of infection, sed rate and crp not very high no other clinical evidence for infection Dr. Bowie concerned about infection with the new changes so decision made to treat with a new full course of IV antibiotics. The area and the amount of fluid collection is not enough for us to be able to obtain the sample Continue dapto and meropenem Increased Meropenem frequency to q 6 01/30 Added 01/30 Micafungin Monitor labs/temp Pain management per primary Discussed with nursing D/w Dr. Hernández 01/30 - Heme has been consulted MAURI WILDE MD Jan 31, 2021 06:43
[2021-01-31 07:00] VITALS: BP 137/79
[2021-01-31] MEDS: GABAPENTIN 300 MG CAPSULE. PO SCH ×4 (09:14→20:57)
[2021-01-31] MEDS: POLYETHYLENE GLYCOL 3350 17 GM PACKET. PO SCH (09:14)
[2021-01-31] MEDS: METHADONE 10 MG TABLET. PO SCH ×3 (09:14→21:00)
[2021-01-31] MEDS: clonazePAM 0.5 MG TABLET PO PRN ×2 (09:14→20:58)
[2021-01-31] MEDS: SENNOSIDES/DOCUSATE 8.6/50MG TABLET. PO SCH ×2 (09:14→20:57)
[2021-01-31] MEDS: LACTOBACILLUS RHAMNOSUS GG 1 CAPSULE. PO SCH ×2 (09:14→20:57)
[2021-01-31 09:48] LABS: BASO % 1 % (0-3); EOS # 0.4 x10^3/uL (0.0-0.7); EOS % 7 % (0-3); HEMATOCRIT 23.6 % (39.0-53.0); HEMOGLOBIN 7.9 g/dL (13.0-17.5); LYMPH # 1.8 x10^3/uL (1.0-4.8); LYMPH % 30 % (24-48); MEAN CORPUSCULAR HEMOGLOBIN 32 pg (25-35); MEAN CORPUSCULAR HGB CONC 34 g/dL (31-37); MEAN CORPUSCULAR VOLUME 94 fL (79-100); MONO # 0.5 x10^3/uL (0.0-1.1); MONO % 8 % (0-9); NEUT # 3.2 x10^3/uL (1.8-7.7); NEUT % 55 % (31-73); PLATELET COUNT 108 x10^3/uL (140-400); RED BLOOD COUNT 2.52 x10^6/uL (4.30-5.70); RED CELL DISTRIBUTION WIDTH 14.9 % (11.5-14.5); WHITE BLOOD COUNT 5.8 x10^3/uL (4.0-11.0)
[2021-01-31 09:55] LABS: CALCIUM 8.6 mg/dL (8.5-10.1); CREATININE 0.7 mg/dL (0.7-1.3); GFR 115.4; POTASSIUM 3.8 mmol/L (3.5-5.1)
--- NOTE | 2021-01-31 10:30 | PDOC ---
[facility] PROGRESS NOTE Date of Service DOS: DATE: 01/31/21 TIME: 10:36 Chief Complaint Chief Complaint A/P: L2-L5 spinal canal stenosis with urinary retention - retention more likely medication side effect. Cervical spine stenosis History osteomyelitis DM2 - sliding scale Normocytic anemia - s/p transfusion Thrombocytopenia - hematology following Hypothyroidism Chronic pain Right total knee replacement History of femur fracture October 2020 osteomyelitis T11-12 - MRI changes in cervical and thoracic spine likely needs IV treatment Plan: Will resume his current antibiotic treatment Hemoglobin & hematocrit 8.8 and 25.6 respectively (11/16/2020); hemoglobin 7.1 and hematocrit 22.9 on admission. Will continue to monitor and transfuse as needed. Resume home medications FEN - Cardiac diet PPX - Heparin FULL CODE Dispo - inpatient for above Advance Care Planning: Total time spent [id number] with patient 16 minutes in discussion with goals of care, comfort care, end-of-life care, pain management, code status; patient names his (Radha Padilla) as surrogate decision-maker. History of Present Illness History of Present Illness Mr Byrnes is a 61-year-old male PMHx hypothyroidism, chronic pain, hernia, back surgery, right total knee replacement, and history of femur fracture and October 2020 osteomyelitis s/p cervical, thoracic, and lumbar epidural abscess drainage who presents to the ED with complaints of urinary retention. Patient states he has not urinated in the past 2 days prior to admit with associated bladder distention. He was recently admitted on 11/02/2020 for spinal epidural abscess, paraspinal cervical abscess, and osteomyelitis. He states he is currently on an antibiotic 3 times daily, but cannot member the name of this antibiotic. CT lumbar spine obtained in the ED showed redemonstrated changes of discitis osteomyelitis at L3-L4 with at least moderate spinal canal stenosis at that level L2-L5. Coello catheter was placed in the ED with reportedly 1000 mL urine output. Patient states he feels significantly better after having Coello placed, but is also reports chronic right knee pain. He has had right knee pain over this past 3 years since total knee replacement, but states his pain is worsened over the past 3 days causing him difficulty moving. States his knee is slightly more mobile after pain medication he received in the ED. Neurosurgery was consulted in the ED and requesting admission. Admitted patient for further medical management. 01/27: Afebrile. Discussed with neurosurgery and ID his recent MRI is actually improved. He discloses to me that prior to his complicated hospital stay he had actually been weaned down from 150 mg daily of methadone for chronic pain to 10 mg 3 times daily and has had trouble having anyone to prescribe methadone for him. He continues to ask for pain medication regularly. Discussed complications of urinary retention related to chronic opioid therapy. 01/28: Afebrile. Platelets still low normal still low. Coello out today start on methadone per PMR. MRI reviewed with ID and neurosurgery, given MRI findings and thoracic and cervical areas changed likely persistent infection. Voiding trial today. PICC inserted 01/29: Afebrile overnight. Hemoglobin dropped below 7. Pain better controlled on methadone. No residual on PVR. 1u PRBC with good effect 01/30: Afebrile. Hb dropped to 6.8 again. 11 unit of blood transfusing. He actually feels better on the methadone is a little bit stronger. No more urinary retention. Afebrile. Hb 7.9 posttransfusion. Platelets up to 108. Feeling improved. Vitals/I&O Vitals/I&O: Vital Signs Date Time Temp Pulse Resp B/P (MAP) Pulse Ox O2 Delivery O2 Flow Rate FiO2 01/31/21 07:00 97.5 88 20 137/79 (98) 94 Room Air 97.5 01/30/21 11:00 2.0 I & O 01/30/21 01/30/21 01/31/21 14:53 22:53 06:53 Intake Total 300 ml 560 ml Output Total 200 ml Balance 100 ml 560 ml Physical Exam Physical Exam: GENERAL: Propped up in bed, alert appears comfortable HEENT: Normal conjunctivae. Oral cavity clear NECK: Supple. No JVP, no lymphadenopathy. LUNGS: Clear. HEART: S1, S2 regular. ABDOMEN: Soft, nontender. EXTREMITIES: No edema or cyanosis. Right knee wo redness/warmth/swelling. SKIN: No signs of gen rash. Groin yeast some better NEUROLOGIC: Alert, awake, and appropriate. RUE-PICC (01/28) clean General: Alert, Cooperative Lungs: Clear Labs Labs: Laboratory Tests Test 01/31/21 09:28 White Blood Count 5.8 x10^3/uL (4.0-11.0) Red Blood Count 2.52 x10^6/uL (4.30-5.70) Hemoglobin 7.9 g/dL (13.0-17.5) Hematocrit 23.6 % (39.0-53.0) Mean Corpuscular Volume 94 fL (79-100) Mean Corpuscular Hemoglobin 32 pg (25-35) Mean Corpuscular Hemoglobin Concent 34 g/dL (31-37) Red Cell Distribution Width 14.9 % (11.5-14.5) Platelet Count 108 x10^3/uL (140-400) Neutrophils (%) (Auto) 55 % (31-73) Lymphocytes (%) (Auto) 30 % (24-48) Monocytes (%) (Auto) 8 % (0-9) Eosinophils (%) (Auto) 7 % (0-3) Basophils (%) (Auto) 1 % (0-3) Neutrophils # (Auto) 3.2 x10^3/uL (1.8-7.7) Lymphocytes # (Auto) 1.8 x10^3/uL (1.0-4.8) Monocytes # (Auto) 0.5 x10^3/uL (0.0-1.1) Eosinophils # (Auto) 0.4 x10^3/uL (0.0-0.7) Basophils # (Auto) 0.0 x10^3/uL (0.0-0.2) Sodium Level 144 mmol/L (136-145) Potassium Level 3.8 mmol/L (3.5-5.1) Chloride Level 107 mmol/L (98-107) Carbon Dioxide Level 29 mmol/L (21-32) Anion Gap 8 (6-14) Blood Urea Nitrogen 11 mg/dL (8-26) Creatinine 0.7 mg/dL (0.7-1.3) Estimated GFR (Cockcroft-Gault) 115.4 Glucose Level 99 mg/dL (70-99) Calcium Level 8.6 mg/dL (8.5-10.1) Assessment and Plan Assessmemt and Plan Problems Medical Problems: (1) Urinary retention Status: Acute Comment Review of Relevant I have reviewed the following items almas (where applicable) has been applied. Medications: Current Medications Medications (Trade) Dose Ordered Sig/Mary Jane Route PRN Reason Start Time Stop Time Status Last Admin Dose Admin Meropenem 500 mg/ Sodium Chloride 50 ml @ 100 mls/hr Q6HRS IV 01/30/21 18:00 01/31/21 06:10 Micafungin Sodium 100 mg/Dextrose 100 ml @ 100 mls/hr Q24H IV 01/30/21 17:00 01/30/21 17:00 Justifications for Admission Other Justification Lumbar spinal stenosis concerning for cauda equina syndrome WARD ESTEVEZ MD Jan 31, 2021 10:30
[2021-01-31 11:00] VITALS: BP 120/71
[2021-01-31] MEDS: DAPTOmycin (GENERIC) IVPB 450 MG in IV NORMAL SALINE 50ML 50 ML IV SCH (13:09)
[2021-01-31 15:00] VITALS: BP 128/76
[2021-01-31] MEDS: MICAFUNGIN 100 MG in IV DEXTROSE 5% 100ML 100 ML IV SCH (17:00)
[2021-01-31 19:00] VITALS: BP 135/77
[2021-01-31] MEDS: TAMSULOSIN 0.4 MG CAP.ER.24H. PO SCH (20:57)
[2021-01-31] MEDS: traZODone 50 MG TABLET. PO SCH (20:58)
[2021-01-31 23:00] VITALS: BP 132/77
[2021-02-01] MEDS: MEROPENEM 500 MG in IV NORMAL SALINE 50ML 50 ML IV SCH ×4 (01:11→17:55)
[2021-02-01 03:00] VITALS: BP 135/74
[2021-02-01] MEDS: LEVOTHYROXINE 100 MCG TABLET PO SCH (06:21)
[2021-02-01] MEDS: HEPARIN for SUB-Q USE 5,000 UNIT/ML VIAL. SQ SCH ×3 (06:36→21:16)
[2021-02-01 06:37] LABS: BASO % 1 % (0-3); EOS # 0.3 x10^3/uL (0.0-0.7); EOS % 6 % (0-3); HEMATOCRIT 22.4 % (39.0-53.0); HEMOGLOBIN 7.6 g/dL (13.0-17.5); LYMPH % 36 % (24-48); MEAN CORPUSCULAR HEMOGLOBIN 32 pg (25-35); MEAN CORPUSCULAR HGB CONC 34 g/dL (31-37); MEAN CORPUSCULAR VOLUME 94 fL (79-100); MONO # 0.4 x10^3/uL (0.0-1.1); MONO % 7 % (0-9); NEUT # 2.8 x10^3/uL (1.8-7.7); NEUT % 51 % (31-73); PLATELET COUNT 129 x10^3/uL (140-400); RED BLOOD COUNT 2.39 x10^6/uL (4.30-5.70); RED CELL DISTRIBUTION WIDTH 15.4 % (11.5-14.5); WHITE BLOOD COUNT 5.6 x10^3/uL (4.0-11.0)
[2021-02-01 06:48] VITALS: BP 160/84
[2021-02-01 06:51] LABS: CALCIUM 8.4 mg/dL (8.5-10.1); CREATININE 0.8 mg/dL (0.7-1.3); GFR 98.9; POTASSIUM 4.1 mmol/L (3.5-5.1); TOTAL BILIRUBIN 0.2 mg/dL (0.2-1.0)
[2021-02-01] MEDS: GABAPENTIN 300 MG CAPSULE. PO SCH ×4 (07:56→21:15)
[2021-02-01] MEDS: LACTOBACILLUS RHAMNOSUS GG 1 CAPSULE. PO SCH ×2 (07:56→21:15)
[2021-02-01] MEDS: POLYETHYLENE GLYCOL 3350 17 GM PACKET. PO SCH (07:56)
[2021-02-01] MEDS: SENNOSIDES/DOCUSATE 8.6/50MG TABLET. PO SCH ×2 (07:56→21:14)
[2021-02-01] MEDS: METHADONE 10 MG TABLET. PO SCH ×3 (08:02→21:14)
--- NOTE | 2021-02-01 08:27 | PDOC ---
PROGRESS NOTES Date of Service: DATE: 02/01/21 TIME: 08:27 Chief Complaint Chief Complaint impression L2-L5 spinal canal stenosis with urinary retention - retention more likely medication side effect. Cervical spine stenosis History osteomyelitis DM2 - sliding scale Normocytic anemia - s/p transfusion DENIES HX Colonoscopy but is poor historian Thrombocytopenia - hematology following Hypothyroidism Chronic pain Right total knee replacement History of femur fracture October 2020 osteomyelitis T11-12 - MRI changes in cervical and thoracic spine likely needs IV treatment Complete to near complete resolution of previously demonstrated epidural enhancement consistent with abscess throughout the and majority of the thoracic levels, consistent with interval treatment response. There is a new small enhancing ventral epidural collection measuring 2 mm in thickness at T1-T2 which is likely infectious given extensive adjacent marrow edema involving the posterior elements and surrounding soft tissues at C7-T1. There are new small peripherally enhancing fluid collections posterior to the facet joints at this level and within the left dorsal central canal which may be due to superinfected synovial cysts or abscesses. dilation of a segment of colon measuring up to 6.5 cm. / uncertain clinical significance, obstruction or focal ileus could have this appearance. Plan: Will resume his current antibiotic treatment Hemoglobin & hematocrit 8.8 and 25.6 respectively (11/16/2020); hemoglobin 7.1 and hematocrit 22.9 on admission. Will continue to monitor and transfuse as needed. Resume home medications FEN - Cardiac diet PPX - Heparin FULL CODE Dispo - inpatient for above HEME consult Continue dapto and meropenem , Cont Micafungin GI consult guiac stools CEA 37 min pt exam, chart review, > 50% of time spent with exam, chart review, pt care coordination Advance Care Planning: Total time spent [id number] with patient 16 minutes in discussion with goals of care, comfort care, end-of-life care, pain management, code status; patient names his (Radha Padilla) as surrogate decision-maker. History of Present Illness History of Present Illness impression Mr Byrnes is a 61-year-old male PMHx hypothyroidism, chronic pain, hernia, back surgery, right total knee replacement, and history of femur fracture and October 2020 osteomyelitis s/p cervical, thoracic, and lumbar epidural abscess drainage who presents to the ED with complaints of urinary retention. Patient states he has not urinated in the past 2 days prior to admit with associated bladder distention. He was recently admitted on 11/02/2020 for spinal epidural abscess, paraspinal cervical abscess, and osteomyelitis. He states he is currently on an antibiotic 3 times daily, but cannot member the name of this antibiotic. CT lumbar spine obtained in the ED showed redemonstrated changes of discitis osteomyelitis at L3-L4 with at least moderate spinal canal stenosis at that level L2-L5. Coello catheter was placed in the ED with reportedly 1000 mL urine output. Patient states he feels significantly better after having Coello placed, but is also reports chronic right knee pain. He has had right knee pain over this past 3 years since total knee replacement, but states his pain is worsened over the past 3 days causing him difficulty moving. States his knee is slightly more mobile after pain medication he received in the ED. Neurosurgery was consulted in the ED and requesting admission. Admitted patient for further medical management. 01/27: Afebrile. Discussed with neurosurgery and ID his recent MRI is actually improved. He discloses to me that prior to his complicated hospital stay he had actually been weaned down from 150 mg daily of methadone for chronic pain to 10 mg 3 times daily and has had trouble having anyone to prescribe methadone for him. He continues to ask for pain medication regularly. Discussed complications of urinary retention related to chronic opioid therapy. 01/28: Afebrile. Platelets still low normal still low. Coello out today start on methadone per PMR. MRI reviewed with ID and neurosurgery, given MRI findings and thoracic and cervical areas changed likely persistent infection. Voiding tri al today. PICC inserted 01/29: Afebrile overnight. Hemoglobin dropped below 7. Pain better controlled on methadone. No residual on PVR. 1u PRBC with good effect 01/30: Afebrile. Hb dropped to 6.8 again. 11 unit of blood transfusing. He actually feels better on the methadone is a little bit stronger. No more urinary retention. Afebrile. Hb 7.9 posttransfusion. Platelets up to 108. Feeling improved. - L2-L5 spinal canal stenosis with urinary retention - retention more likely medication side effect. Cervical spine stenosis History osteomyelitis DM2 - sliding scale Normocytic anemia - s/p transfusion Thrombocytopenia - hematology following Hypothyroidism FEN - Cardiac diet PPX - Heparin FULL CODE Dispo - inpatient for above HEME consult Continue dapto and meropenem , Cont Micafungin 37 min pt exam, chart review, > 50% of time spent with exam, chart review, pt care coordination Vitals Vitals Vital Signs Date Time Temp Pulse Resp B/P (MAP) Pulse Ox O2 Delivery O2 Flow Rate FiO2 02/01/21 06:48 98.0 85 18 160/84 (109) 96 Room Air 98.0 Physical Exam Physical Exam GENERAL: Propped up in bed, alert appears comfortable HEENT: Normal conjunctivae. Oral cavity clear NECK: Supple. No JVP, no lymphadenopathy. LUNGS: Clear. HEART: S1, S2 regular. ABDOMEN: Soft, nontender. EXTREMITIES: No edema or cyanosis. Right knee wo redness/warmth/swelling. SKIN: No signs of gen rash. Groin yeast some better NEUROLOGIC: Alert, awake, and appropriate. RUE-PICC (01/28) clean General: Alert, Cooperative Lungs: Clear Abdomen: Normal bowel sounds, Soft, No tenderness Extremities: No cyanosis Labs LABS ORAL CONTRAST: Not administered COMPARISON: Abdomen pelvis CT of 01/22/2014 FINDINGS: The absence of IV contrast limits evaluation of soft tissue pathology. CHEST: CARDIOVASCULAR: Unremarkable MEDIASTINUM & MAYO: No adenopathy or masses. LUNGS: Platelike atelectasis in the posterior right upper lobe. Pulmonary infiltrate, nodule, or other focal abnormality. PLEURAL SPACE: No pleural effusions or pneumothorax. OSSEOUS & SOFT TISSUE: Right gynecomastia. Surgical drain in the midline upper back dorsal paraspinal soft tissues overlying T3 where posterior decompression at T2 and T3 has occurred. No bony erosive changes are evident. Midline skin jeannette in the lower cervical spine are apparent. ABDOMEN/PELVIS: LIVER: Unremarkable BILIARY SYSTEM: Gallbladder is unremarkable. Bile ducts are not dilated. PANCREAS: Unremarkable SPLEEN: Unremarkable ADRENALS: Unremarkable KIDNEYS & URETERS: Unremarkable BLADDER: Decompressed by an indwelling Coello catheter. REPRODUCTIVE ORGANS: Surgical clip in the right inguinal canal is present, suggesting previous vasectomy. GASTROINTESTINAL: Multiple small and large bowel loops are fluid-filled and mildly distended in a pattern suggesting an ileus. No transition point is apparent. Rectal tube is present. MESENTERY/PERITONEUM/RETROPERITONEUM: Unremarkable VASCULAR: Unremarkable LYMPH NODES: No adenopathy OSSEOUS & SOFT TISSUES: Lower lumbar spinal postop changes of decompression in the L1 and L5 levels with additional findings suggesting previous fracture or bone graft harvest site left superior iliac wing. There are multilevel lumbar spinal degenerative changes. L4-L5 is fused. Skin jeannette are present overlying the thoracolumbar junction. IMPRESSION: Relatively recent postoperative changes of posterior spinal decompression in the upper thoracic spine, and at the thoracolumbar junction with no obvious fluid collection or erosive bony changes. No additional findings in the chest abdomen or pelvis are identified to suggest a cause for fever and bacteremia. There is fluid and gas distention of the small and large bowel in a pattern suggesting an ileus. No abscess is identified. Electronically signed by: Karlee Del Rio MD (11/11/2020 3:24 PM) [id number] DICTATED and SIGNED BY: KARLEE DEL RIO MD DATE: 11/11/20 [id number] EXAM: Cervical and thoracic spine MRI without and with contrast. HISTORY: Urinary retention. TECHNIQUE: Multiplanar, multisequence magnetic resonance imaging of the cervical and thoracic spine was performed without and with contrast. COMPARISON: Lumbar MRI performed 01/20/2021. Thoracic and cervical spine MRI dated 12/30/2020 FINDINGS: Cervical spine: There is mild cervical curvature due to thoracic scoliosis. There is minimal anterolisthesis of C7 on T1 and T1 on T2. There is degenerative endplate remodeling with osteophytosis primarily at the lower cervical levels. There are few endplate Schmorl's nodes. There is no acute fracture. There has been interval decrease in epidural enhancement at the cervical levels primarily along the dorsal aspects of C4-T1. This measures approximately 2 mm in thickness, compared to a prior measurement of 4 mm. There are laminotomy changes at C3. There is scar/granulation tissue within the laminectomy decompression space. There is extensive edema within the upper thoracic back subcutaneous fat and underlying musculature, described in detail below. There is slight increased ventral epidural enhancement centered at the T1-T2 disc space, measuring approximately 3 mm in thickness and 2.1 cm in length. There is edema involving the bilateral C7-T1 facet joints and surrounding soft tissues, similar compared to the prior study. There is a new 7 x 7 x 3 mm peripherally enhancing fluid collection along the left ligamentum flavum at this level and there are new small peripherally enhancing fluid collections posterior to the facet joints at this level measuring approximately 5 mm on the right and 12 mm on the left. These may be due to tiny abscesses given a history of epidural abscess and the extensive surrounding inflammatory changes at this level. There is deformation of the cervical spinal cord at multiple levels due to sig nificant central canal stenosis. There is no convincing spinal cord edema or myelomalacia. The skull base is unremarkable. At C2-C3, there is mild right facet arthropathy. There is no stenosis. At C3-C4, there is a shallow right paracentral to lateral recess disc protrusion superimposed on a disc bulge and endplate remodeling. There is mild bilateral facet arthropathy. There is buckling of the ligamentum flavum. There is mild left foraminal stenosis. There are laminectomy changes. At C4-C5, there is a shallow broad-based right paracentral disc protrusion superimposed on a disc bulge and endplate osteophytosis. There is moderate b ilateral facet arthropathy. There is uncovertebral arthropathy. There is buckling of the ligamentum flavum. There is moderate to severe left foraminal stenosis. There is deformation of the spinal cord and severe stenosis measuring 6.3 mm in anterior posterior dimension At C5-C6, there is a broad-based posterior central disc protrusion and 4 mm inferior extrusion superimposed on a disc bulge and endplate osteophytosis. There is mild right and moderate left facet arthropathy. There is uncovertebral arthropathy. There is mild right and moderate left foraminal stenosis. There is severe central canal stenosis measuring 6.1 mm in anterior posterior dimension. At C6-C7, there is a disc bulge and endplate osteophytosis. There is mild right and moderate left facet arthropathy. There is uncovertebral arthropathy. There is buckling of the ligamentum flavum. There is moderate right foraminal s tenosis. There is mild central canal stenosis measuring 8.4 mm in anterior posterior dimension. At C7-T1, there is a disc bulge. There is moderate facet arthropathy. There are small fluid collections posterior to the facet joints and within the left dorsal central canal along the ligamentum flavum. There is a small amount of fluid within the facet joints. There is mild central canal stenosis measuring 8.6 mm in anterior posterior dimension. Thoracic spine: There are laminotomy changes at T2 and T3. There is thoracic scoliosis. There is minimal anterolisthesis at the upper thoracic levels. There is multilevel endplate remodeling. There are few endplate Schmorl's nodes. There are few osseous hemangiomas. There is chronic mild anterior wedging of T12. There is no acute or subacute fracture. There is edema associated with suspected atypical hemangiomas involving the left posterior inferior aspect of T11 and the left T11 pedicle. There is also mild edema involving a few smaller suspected atypical hemangiomas. No convincing osseous metastasis is seen. There is edema within the posterior upper back soft tissues at the level of upper thoracic levels to the surgery, likely postoperative or due to denervation edema. There is enhancing scar/granulation tissue in this location. This exerts no mass effect on the thecal sac. There has been complete to near complete resolution of previously demonstrated epidural enhancement from the T5 level to the T11 level. No new suspicious enhancing epidural collection is seen. At T6-T7, there is a shallow left paracentral to lateral recess disc protrusion superimposed on left posterior lateral predominant endplate osteophytosis. There is mild left facet arthropathy. There is mild left foraminal stenosis. At T8-T9, there is a shallow left paracentral disc protrusion. There is no stenosis. At T9-T10, there is a shallow left paracentral to lateral recess disc pr otrusion. There is mild right facet arthropathy. There is mild right foraminal stenosis. At T10-T11, there is a disc bulge. There is mild bilateral facet arthropathy. There is mild bilateral foraminal stenosis. At T11-T12, there is a shallow left paracentral disc protrusion and annular tear. There is mild bilateral facet arthropathy. There is no stenosis. IMPRESSION: 1. Complete to near complete resolution of previously demonstrated epidural enhancement consistent with abscess throughout the and majority of the thoracic levels, consistent with interval treatment response. There is a new small enhancing ventral epidural collection measuring 2 mm in thickness at T1-T2 which is likely infectious given extensive adjacent marrow edema involving the posterior elements and surrounding soft tissues at C7-T1. There are new small peripherally enhancing fluid collections posterior to the facet joints at this level and within the left dorsal central canal which may be due to superinfected synovial cysts or abscesses. 2. Significant interval decrease in previously demonstrated epidural enhancement at the cervical levels, consistent with interval treatment response. 3. Laminectomy changes at C3 and T2 and T3 with overlying edema and enhancing scar/granulation tissue. This exerts no mass effect on the thecal sac. 4. Severe multilevel degenerative change involving the cervical spine, resulting in significant stenosis at the aforementioned levels. The central canal stenosis is severe at C4-C5, C5-C6 and C6-C7, resulting in deformation of the cervical spinal cord. No convincing cord edema or myelomalacia is seen. 5. Mild multilevel degenerative change involving the thoracic spine, resulting in foraminal stenosis at the aforementioned levels. No thoracic central canal stenosis is seen. 6. Please refer to the separate report for the recent lumbar spine MRI performed 01/20/2021 for additional findings. Electronically signed by: Alycia Phillips MD (01/27/2021 4:09 PM) [id number] DICTATED and SIGNED BY: ALYCIA PHILLIPS MD DATE: 01/27/21 [id number] 0 Laboratory Tests Test 01/31/21 09:28 02/01/21 06:25 White Blood Count 5.8 x10^3/uL (4.0-11.0) 5.6 x10^3/uL (4.0-11.0) Red Blood Count 2.52 x10^6/uL (4.30-5.70) 2.39 x10^6/uL (4.30-5.70) Hemoglobin 7.9 g/dL (13.0-17.5) 7.6 g/dL (13.0-17.5) Hematocrit 23.6 % (39.0-53.0) 22.4 % (39.0-53.0) Mean Corpuscular Volume 94 fL (79-100) 94 fL (79-100) Mean Corpuscular Hemoglobin 32 pg (25-35) 32 pg (25-35) Mean Corpuscular Hemoglobin Concent 34 g/dL (31-37) 34 g/dL (31-37) Red Cell Distribution Width 14.9 % (11.5-14.5) 15.4 % (11.5-14.5) Platelet Count 108 x10^3/uL (140-400) 129 x10^3/uL (140-400) Neutrophils (%) (Auto) 55 % (31-73) 51 % (31-73) Lymphocytes (%) (Auto) 30 % (24-48) 36 % (24-48) Monocytes (%) (Auto) 8 % (0-9) 7 % (0-9) Eosinophils (%) (Auto) 7 % (0-3) 6 % (0-3) Basophils (%) (Auto) 1 % (0-3) 1 % (0-3) Neutrophils # (Auto) 3.2 x10^3/uL (1.8-7.7) 2.8 x10^3/uL (1.8-7.7) Lymphocytes # (Auto) 1.8 x10^3/uL (1.0-4.8) 2.0 x10^3/uL (1.0-4.8) Monocytes # (Auto) 0.5 x10^3/uL (0.0-1.1) 0.4 x10^3/uL (0.0-1.1) Eosinophils # (Auto) 0.4 x10^3/uL (0.0-0.7) 0.3 x10^3/uL (0.0-0.7) Basophils # (Auto) 0.0 x10^3/uL (0.0-0.2) 0.0 x10^3/uL (0.0-0.2) Sodium Level 144 mmol/L (136-145) 144 mmol/L (136-145) Potassium Level 3.8 mmol/L (3.5-5.1) 4.1 mmol/L (3.5-5.1) Chloride Level 107 mmol/L (98-107) 107 mmol/L (98-107) Carbon Dioxide Level 29 mmol/L (21-32) 31 mmol/L (21-32) Anion Gap 8 (6-14) 6 (6-14) Blood Urea Nitrogen 11 mg/dL (8-26) 9 mg/dL (8-26) Creatinine 0.7 mg/dL (0.7-1.3) 0.8 mg/dL (0.7-1.3) Estimated GFR (Cockcroft-Gault) 115.4 98.9 Glucose Level 99 mg/dL (70-99) 85 mg/dL (70-99) Calcium Level 8.6 mg/dL (8.5-10.1) 8.4 mg/dL (8.5-10.1) BUN/Creatinine Ratio 11 (6-20) Total Bilirubin 0.2 mg/dL (0.2-1.0) Aspartate Amino Transf (AST/SGOT) 15 U/L (15-37) Alanine Aminotransferase (ALT/SGPT) 19 U/L (16-63) Alkaline Phosphatase 65 U/L (46-116) Total Protein 6.0 g/dL (6.4-8.2) Albumin 3.0 g/dL (3.4-5.0) Albumin/Globulin Ratio 1.0 (1.0-1.7) Assessment and Plan Assessmemt and Plan Problems Medical Problems: (1) Urinary retention Status: Acute Comment Review of Relevant I have reviewed the following items almas (where applicable) has been applied. Labs Laboratory Tests Test 01/31/21 09:28 02/01/21 06:25 White Blood Count 5.8 x10^3/uL (4.0-11.0) 5.6 x10^3/uL (4.0-11.0) Red Blood Count 2.52 x10^6/uL (4.30-5.70) 2.39 x10^6/uL (4.30-5.70) Hemoglobin 7.9 g/dL (13.0-17.5) 7.6 g/dL (13.0-17.5) Hematocrit 23.6 % (39.0-53.0) 22.4 % (39.0-53.0) Mean Corpuscular Volume 94 fL (79-100) 94 fL (79-100) Mean Corpuscular Hemoglobin 32 pg (25-35) 32 pg (25-35) Mean Corpuscular Hemoglobin Concent 34 g/dL (31-37) 34 g/dL (31-37) Red Cell Distribution Width 14.9 % (11.5-14.5) 15.4 % (11.5-14.5) Platelet Count 108 x10^3/uL (140-400) 129 x10^3/uL (140-400) Neutrophils (%) (Auto) 55 % (31-73) 51 % (31-73) Lymphocytes (%) (Auto) 30 % (24-48) 36 % (24-48) Monocytes (%) (Auto) 8 % (0-9) 7 % (0-9) Eosinophils (%) (Auto) 7 % (0-3) 6 % (0-3) Basophils (%) (Auto) 1 % (0-3) 1 % (0-3) Neutrophils # (Auto) 3.2 x10^3/uL (1.8-7.7) 2.8 x10^3/uL (1.8-7.7) Lymphocytes # (Auto) 1.8 x10^3/uL (1.0-4.8) 2.0 x10^3/uL (1.0-4.8) Monocytes # (Auto) 0.5 x10^3/uL (0.0-1.1) 0.4 x10^3/uL (0.0-1.1) Eosinophils # (Auto) 0.4 x10^3/uL (0.0-0.7) 0.3 x10^3/uL (0.0-0.7) Basophils # (Auto) 0.0 x10^3/uL (0.0-0.2) 0.0 x10^3/uL (0.0-0.2) Sodium Level 144 mmol/L (136-145) 144 mmol/L (136-145) Potassium Level 3.8 mmol/L (3.5-5.1) 4.1 mmol/L (3.5-5.1) Chloride Level 107 mmol/L (98-107) 107 mmol/L (98-107) Carbon Dioxide Level 29 mmol/L (21-32) 31 mmol/L (21-32) Anion Gap 8 (6-14) 6 (6-14) Blood Urea Nitrogen 11 mg/dL (8-26) 9 mg/dL (8-26) Creatinine 0.7 mg/dL (0.7-1.3) 0.8 mg/dL (0.7-1.3) Estimated GFR (Cockcroft-Gault) 115.4 98.9 Glucose Level 99 mg/dL (70-99) 85 mg/dL (70-99) Calcium Level 8.6 mg/dL (8.5-10.1) 8.4 mg/dL (8.5-10.1) BUN/Creatinine Ratio 11 (6-20) Total Bilirubin 0.2 mg/dL (0.2-1.0) Aspartate Amino Transf (AST/SGOT) 15 U/L (15-37) Alanine Aminotransferase (ALT/SGPT) 19 U/L (16-63) Alkaline Phosphatase 65 U/L (46-116) Total Protein 6.0 g/dL (6.4-8.2) Albumin 3.0 g/dL (3.4-5.0) Albumin/Globulin Ratio 1.0 (1.0-1.7) Laboratory Tests Test 01/31/21 09:28 02/01/21 06:25 White Blood Count 5.8 x10^3/uL (4.0-11.0) 5.6 x10^3/uL (4.0-11.0) Red Blood Count 2.52 x10^6/uL (4.30-5.70) 2.39 x10^6/uL (4.30-5.70) Hemoglobin 7.9 g/dL (13.0-17.5) 7.6 g/dL (13.0-17.5) Hematocrit 23.6 % (39.0-53.0) 22.4 % (39.0-53.0) Mean Corpuscular Volume 94 fL (79-100) 94 fL (79-100) Mean Corpuscular Hemoglobin 32 pg (25-35) 32 pg (25-35) Mean Corpuscular Hemoglobin Concent 34 g/dL (31-37) 34 g/dL (31-37) Red Cell Distribution Width 14.9 % (11.5-14.5) 15.4 % (11.5-14.5) Platelet Count 108 x10^3/uL (140-400) 129 x10^3/uL (140-400) Neutrophils (%) (Auto) 55 % (31-73) 51 % (31-73) Lymphocytes (%) (Auto) 30 % (24-48) 36 % (24-48) Monocytes (%) (Auto) 8 % (0-9) 7 % (0-9) Eosinophils (%) (Auto) 7 % (0-3) 6 % (0-3) Basophils (%) (Auto) 1 % (0-3) 1 % (0-3) Neutrophils # (Auto) 3.2 x10^3/uL (1.8-7.7) 2.8 x10^3/uL (1.8-7.7) Lymphocytes # (Auto) 1.8 x10^3/uL (1.0-4.8) 2.0 x10^3/uL (1.0-4.8) Monocytes # (Auto) 0.5 x10^3/uL (0.0-1.1) 0.4 x10^3/uL (0.0-1.1) Eosinophils # (Auto) 0.4 x10^3/uL (0.0-0.7) 0.3 x10^3/uL (0.0-0.7) Basophils # (Auto) 0.0 x10^3/uL (0.0-0.2) 0.0 x10^3/uL (0.0-0.2) Sodium Level 144 mmol/L (136-145) 144 mmol/L (136-145) Potassium Level 3.8 mmol/L (3.5-5.1) 4.1 mmol/L (3.5-5.1) Chloride Level 107 mmol/L (98-107) 107 mmol/L (98-107) Carbon Dioxide Level 29 mmol/L (21-32) 31 mmol/L (21-32) Anion Gap 8 (6-14) 6 (6-14) Blood Urea Nitrogen 11 mg/dL (8-26) 9 mg/dL (8-26) Creatinine 0.7 mg/dL (0.7-1.3) 0.8 mg/dL (0.7-1.3) Estimated GFR (Cockcroft-Gault) 115.4 98.9 Glucose Level 99 mg/dL (70-99) 85 mg/dL (70-99) Calcium Level 8.6 mg/dL (8.5-10.1) 8.4 mg/dL (8.5-10.1) BUN/Creatinine Ratio 11 (6-20) Total Bilirubin 0.2 mg/dL (0.2-1.0) Aspartate Amino Transf (AST/SGOT) 15 U/L (15-37) Alanine Aminotransferase (ALT/SGPT) 19 U/L (16-63) Alkaline Phosphatase 65 U/L (46-116) Total Protein 6.0 g/dL (6.4-8.2) Albumin 3.0 g/dL (3.4-5.0) Albumin/Globulin Ratio 1.0 (1.0-1.7) Microbiology 01/26/21 Urine Culture - Final, Complete Medications Current Medications Iohexol (Omnipaque 300 Mg/ml) 75 ml 1X ONCE IV Last administered on 01/26/21at 14:54; Start 01/26/21 at 14:30; Stop 01/26/21 at 14:31; Status DC Info (CONTRAST GIVEN -- Rx MONITORING) 1 each PRN DAILY PRN MC SEE COMMENTS; Start 01/26/21 at 14:30; Stop 01/28/21 at 14:29; Status DC Fentanyl Citrate (Fentanyl 2ml Vial) 50 mcg 1X ONCE IV Last administered on 01/26/21at 14:59; Start 01/26/21 at 14:30; Stop 01/26/21 at 14:31; Status DC Ondansetron HCl (Zofran) 4 mg 1X ONCE IV Last administered on 01/26/21at 14:59; Start 01/26/21 at 14:30; Stop 01/26/21 at 14:31; Status DC Insulin Human Lispro (HumaLOG) 0-7 UNITS TIDWMEALS SQ ; Start 01/27/21 at 08:00; Stop 01/29/21 at 11:43; Status DC Dextrose (Dextrose 50%-Water Syringe) 12.5 gm PRN Q15MIN PRN IV SEE COMMENTS; Start 01/26/21 at 18:15; Stop 01/29/21 at 11:43; Status DC Dextrose (Iv Dextrose 5%) 250 ml PRN Q15MIN PRN IV SEE COMMENTS; Start 01/26/21 at 18:15; Status UNV Ondansetron HCl (Zofran) 4 mg PRN Q6HRS PRN IVP NAUSEA/VOMITING Last administered on 01/28/21at 04:08; Start 01/26/21 at 18:15 Al Hydroxide/Mg Hydroxide (Mylanta Plus Xs) 30 ml PRN Q3HRS PRN PO HEARTBURN / GAS; Start 01/26/21 at 18:15 Calcium Carbonate/ Glycine (Tums) 500 mg PRN Q3HRS PRN PO UPSET STOMACH; Start 01/26/21 at 18:15 Zolpidem Tartrate (Ambien) 5 mg PRN QHS PRN PO INSOMNIA, MAY REPEAT IN 1HR Last administered on 01/27/21at 23:55; Start 01/26/21 at 18:15 Morphine Sulfate (Morphine Sulfate) 2 mg PRN Q1HR PRN IV MODERATE PAIN Last administered on 01/26/21at 19:27; Start 01/26/21 at 18:15; Stop 01/28/21 at 09:01; Status DC Acetaminophen/ Hydrocodone Bitart (Lortab 5/325) 1 tab PRN Q4HRS PRN PO MILD PAIN 1-3; Start 01/26/21 at 18:15; Stop 01/28/21 at 09:01; Status DC Acetaminophen/ Hydrocodone Bitart (Lortab 5/325) 2 tab PRN Q4HRS PRN PO MODERATE PAIN Last administered on 01/28/21at 04:39; Start 01/26/21 at 18:15; Stop 01/28/21 at 09:01; Status DC Hydromorphone HCl (Dilaudid) 2 mg PRN Q4HRS PRN PO MODERATE PAIN, 2ND CHOICE; Start 01/26/21 at 18:15; Stop 01/28/21 at 09:01; Status DC Hydromorphone HCl (Dilaudid) 4 mg PRN Q4HRS PRN PO SEVERE PAIN; Start 01/26/21 at 18:15; Stop 01/28/21 at 09:01; Status DC Acetaminophen (Tylenol) 650 mg PRN Q6HRS PRN PO Headaches, Temp > 101.5F Last administered on 01/30/21at 11:15; Start 01/26/21 at 18:15 Magnesium Hydroxide (Milk Of Magnesia) 2,400 mg PRN Q12HR PRN PO CONSTIPATION (1st Choice) Last administered on 01/27/21at 16:39; Start 01/26/21 at 18:15 Bisacodyl (Dulcolax Supp) 10 mg PRN DAILY PRN NC CONSTIPATION; Start 01/26/21 at 18:15 Heparin Sodium (Porcine) (Heparin Sodium) 5,000 unit Q8HRS SQ Last administered on 02/01/21at 06:36; Start 01/26/21 at 22:00 Hydromorphone HCl (Dilaudid) 2 mg PRN Q4HRS PRN IVP SEVERE PAIN Last administered on 01/27/21at 09:37; Start 01/26/21 at 18:15; Stop 01/28/21 at 09:01; Status DC Lorazepam (Ativan Inj) 2 mg PRN Q4HRS PRN IVP ANXIETY / AGITATION Last ad ministered on 02/01/21 06:32; Start 01/26/21 at 18:15 Trazodone HCl (Desyrel) 75 mg HS PO Last administered on 01/31/21 20:58; Start 01/26/21 at 21:30 Clonazepam (KlonoPIN) 1 mg TID PO Last administered on 01/27/21 09:32; Start 01/26/21 at 21:30; Stop 01/27/21 at 13:36; Status DC Cephalexin HCl (Keflex) 500 mg TID PO Last administered on 01/30/21 09:33; Start 01/27/21 at 09:00; Stop 01/30/21 at 13:51; Status DC Lactobacillus Rhamnosus (Culturelle) 1 cap BID PO Last administered on 02/01/21 07:56; Start 01/27/21 at 21:00 Clonazepam (KlonoPIN) 1 mg PRN TID PRN PO anxiety Last administered on 01/31/21 20:58; Start 01/27/21 at 13:45 Gadoterate Meglumine (Clariscan) 17 ml 1X ONCE IVP Last administered on 01/27/21 14:54; Start 01/27/21 at 13:45; Stop 01/27/21 at 13:49; Status DC Senna/Docusate Sodium (Senna Plus) 1 tab BID PO Last administered on 02/01/21 07:56; Start 01/27/21 at 21:00 Polyethylene Glycol (miraLAX PACKET) 17 gm DAILY PO Last administered on 02/01/21 07:56; Start 01/28/21 at 09:00 Bisacodyl (Dulcolax Tab) 10 mg PRN DAILY PRN PO CONSTIPATION (2nd Choice) Last administered on 01/27/21 16:40; Start 01/27/21 at 16:15 Tamsulosin HCl (Flomax) 0.4 mg QHS PO Last administered on 01/31/21 20:57; Start 01/27/21 at 21:00 Polyethylene Glycol (miraLAX PACKET) 17 gm DAILY PO ; Start 01/27/21 at 16:15; Status UNV Senna/Docusate Sodium (Senna Plus) 1 tab DAILY PO ; Start 01/27/21 at 16:15; Status UNV Gabapentin (Neurontin) 300 mg QID PO Last administered on 02/01/21at 07:56; Start 01/28/21 at 09:30 Levothyroxine Sodium (Synthroid) 200 mcg DAILY06 PO Last administered on 02/01/21at 06:21; Start 01/28/21 at 09:30 Methadone HCl (Dolophine) 10 mg TID PO Last administered on 02/01/21at 08:02; Start 01/28/21 at 09:00 Daptomycin 450 mg/ Sodium Chloride 50 ml @ 100 mls/hr Q24H IV Last administered on 01/31/21at 13:09; Start 01/28/21 at 12:30 Meropenem 500 mg/ Sodium Chloride 50 ml @ 100 mls/hr Q8HRS IV Last administered on 01/30/21at 06:04; Start 01/28/21 at 14:00; Stop 01/30/21 at 15:56; Status DC Lidocaine HCl (Buffered Lidocaine 1%) 3 ml STK-MED ONCE .ROUTE ; Start 01/28/21 at 14:32; Stop 01/28/21 at 14:33; Status DC Lidocaine HCl (Buffered Lidocaine 1%) 3 ml 1X ONCE INJ Last administered on 01/28/21at 15:22; Start 01/28/21 at 15:15; Stop 01/28/21 at 15:16; Status DC Cyanocobalamin (Vitamin B-12 Inj) 1,000 mcg 1X ONCE IM Last administered on 01/29/21at 09:28; Start 01/29/21 at 07:30; Stop 01/29/21 at 07:31; Status DC Meropenem 500 mg/ Sodium Chloride 50 ml @ 100 mls/hr Q6HRS IV Last administered on 02/01/21at 06:22; Start 01/30/21 at 18:00 Micafungin Sodium 100 mg/Dextrose 100 ml @ 100 mls/hr Q24H IV Last administered on 01/31/21at 17:00; Start 01/30/21 at 17:00 Active Scripts Active Percocet 5-325 Mg Tablet (Oxycodone/Acetaminophen) 1 Each Tablet 1 Tab PO PRN Q6HRS PRN 5 Days Metformin Hcl Er (Metformin Hcl) 500 Mg Tab.er.24h 500 Mg PO DAILYWBKFT 30 Days Reported Klonopin (Clonazepam) 1 Mg Tablet 1 Tab PO TID Trazodone Hcl 100 Mg Tablet 75 Mg PO HS Keflex (Cephalexin) 750 Mg Capsule 500 Mg PO TID Ferrous Sulfate 325 Mg Tablet 1 Tab PO BID Cyclobenzaprine Hcl 10 Mg Tablet 10 Mg PO HS Nifedipine Er (Nifedipine) 30 Mg Tablet.er 30 Mg PO HS Atenolol 50 Mg Tablet 50 Mg PO DAILY Losartan Potassium 100 Mg Tablet 100 Mg PO DAILY16 Colace (Docusate Sodium) 100 Mg Capsule 100 Mg PO DAILY Gabapentin 600 Mg Tablet 1,800 Mg PO BID Levothyroxine Sodium 200 Mcg Tablet 200 Mcg PO DAILYAC Hydrochlorothiazide Tablet (Hydrochlorothiazide) 25 Mg Tablet 50 Mg PO DAILY Vitals/I & O Vital Sign - Last 24 Hours 01/31/21 01/31/21 01/31/21 01/31/21 11:00 15:00 19:00 19:40 Temp 98.3 98.5 97.6 98.3 98.5 97.6 Pulse 86 82 96 Resp 14 14 16 B/P (MAP) 120/71 (87) 128/76 (93) 135/77 (96) Pulse Ox 96 94 93 O2 Delivery Room Air Room Air Room Air Room Air 01/31/21 02/01/21 02/01/21 23:00 03:00 06:48 Temp 97.9 98.1 98.0 97.9 98.1 98.0 Pulse 77 73 85 Resp 16 16 18 B/P (MAP) 132/77 (95) 135/74 (94) 160/84 (109) Pulse Ox 94 94 96 O2 Delivery Room Air Room Air Room Air Intake and Output 01/31/21 01/31/21 02/01/21 15:00 23:00 07:00 Intake Total 360 ml 480 ml 120 ml Output Total 200 ml 200 ml 450 ml Balance 160 ml 280 ml -330 ml Justicifation of Admission Dx: Justifications for Admission: Justification of Admission Dx: Yes KEITH CHIN MD Feb 01, 2021 08:27
--- NOTE | 2021-02-01 09:03 | PDOC ---
PROGRESS NOTES Date of Service DATE: 02/01/21 TIME: 09:01 Subjective Subjective He feels better. Objective Objective Vital Signs Date Time Temp Pulse Resp B/P (MAP) Pulse Ox O2 Delivery O2 Flow Rate FiO2 02/01/21 06:48 98.0 85 18 160/84 (109) 96 Room Air 98.0 01/30/21 11:00 2.0 Intake and Output 02/01/21 06:59 Intake Total 960 ml Output Total 850 ml Balance 110 ml Intake Oral 960 ml Output Urine Total 850 ml # Voids 1 # Bowel Movements 1 Physical Exam Physical Exam He is alert,sitting in bed and eating breakfast and he is getting up with roller walker and pain seems to be under better control with methadone. Assessment Assessment Problems Medical Problems: (1) Urinary retention Status: Acute Plan Plan of Senior Living with home health follow up when medically stable. Comment Review of Relevant I have reviewed the following items almas (where applicable) has been applied. Labs Laboratory Tests Test 01/31/21 09:28 02/01/21 06:25 White Blood Count 5.8 x10^3/uL (4.0-11.0) 5.6 x10^3/uL (4.0-11.0) Red Blood Count 2.52 x10^6/uL (4.30-5.70) 2.39 x10^6/uL (4.30-5.70) Hemoglobin 7.9 g/dL (13.0-17.5) 7.6 g/dL (13.0-17.5) Hematocrit 23.6 % (39.0-53.0) 22.4 % (39.0-53.0) Mean Corpuscular Volume 94 fL (79-100) 94 fL (79-100) Mean Corpuscular Hemoglobin 32 pg (25-35) 32 pg (25-35) Mean Corpuscular Hemoglobin Concent 34 g/dL (31-37) 34 g/dL (31-37) Red Cell Distribution Width 14.9 % (11.5-14.5) 15.4 % (11.5-14.5) Platelet Count 108 x10^3/uL (140-400) 129 x10^3/uL (140-400) Neutrophils (%) (Auto) 55 % (31-73) 51 % (31-73) Lymphocytes (%) (Auto) 30 % (24-48) 36 % (24-48) Monocytes (%) (Auto) 8 % (0-9) 7 % (0-9) Eosinophils (%) (Auto) 7 % (0-3) 6 % (0-3) Basophils (%) (Auto) 1 % (0-3) 1 % (0-3) Neutrophils # (Auto) 3.2 x10^3/uL (1.8-7.7) 2.8 x10^3/uL (1.8-7.7) Lymphocytes # (Auto) 1.8 x10^3/uL (1.0-4.8) 2.0 x10^3/uL (1.0-4.8) Monocytes # (Auto) 0.5 x10^3/uL (0.0-1.1) 0.4 x10^3/uL (0.0-1.1) Eosinophils # (Auto) 0.4 x10^3/uL (0.0-0.7) 0.3 x10^3/uL (0.0-0.7) Basophils # (Auto) 0.0 x10^3/uL (0.0-0.2) 0.0 x10^3/uL (0.0-0.2) Sodium Level 144 mmol/L (136-145) 144 mmol/L (136-145) Potassium Level 3.8 mmol/L (3.5-5.1) 4.1 mmol/L (3.5-5.1) Chloride Level 107 mmol/L (98-107) 107 mmol/L (98-107) Carbon Dioxide Level 29 mmol/L (21-32) 31 mmol/L (21-32) Anion Gap 8 (6-14) 6 (6-14) Blood Urea Nitrogen 11 mg/dL (8-26) 9 mg/dL (8-26) Creatinine 0.7 mg/dL (0.7-1.3) 0.8 mg/dL (0.7-1.3) Estimated GFR (Cockcroft-Gault) 115.4 98.9 Glucose Level 99 mg/dL (70-99) 85 mg/dL (70-99) Calcium Level 8.6 mg/dL (8.5-10.1) 8.4 mg/dL (8.5-10.1) BUN/Creatinine Ratio 11 (6-20) Total Bilirubin 0.2 mg/dL (0.2-1.0) Aspartate Amino Transf (AST/SGOT) 15 U/L (15-37) Alanine Aminotransferase (ALT/SGPT) 19 U/L (16-63) Alkaline Phosphatase 65 U/L (46-116) Total Protein 6.0 g/dL (6.4-8.2) Albumin 3.0 g/dL (3.4-5.0) Albumin/Globulin Ratio 1.0 (1.0-1.7) Laboratory Tests Test 01/31/21 09:28 02/01/21 06:25 White Blood Count 5.8 x10^3/uL (4.0-11.0) 5.6 x10^3/uL (4.0-11.0) Red Blood Count 2.52 x10^6/uL (4.30-5.70) 2.39 x10^6/uL (4.30-5.70) Hemoglobin 7.9 g/dL (13.0-17.5) 7.6 g/dL (13.0-17.5) Hematocrit 23.6 % (39.0-53.0) 22.4 % (39.0-53.0) Mean Corpuscular Volume 94 fL (79-100) 94 fL (79-100) Mean Corpuscular Hemoglobin 32 pg (25-35) 32 pg (25-35) Mean Corpuscular Hemoglobin Concent 34 g/dL (31-37) 34 g/dL (31-37) Red Cell Distribution Width 14.9 % (11.5-14.5) 15.4 % (11.5-14.5) Platelet Count 108 x10^3/uL (140-400) 129 x10^3/uL (140-400) Neutrophils (%) (Auto) 55 % (31-73) 51 % (31-73) Lymphocytes (%) (Auto) 30 % (24-48) 36 % (24-48) Monocytes (%) (Auto) 8 % (0-9) 7 % (0-9) Eosinophils (%) (Auto) 7 % (0-3) 6 % (0-3) Basophils (%) (Auto) 1 % (0-3) 1 % (0-3) Neutrophils # (Auto) 3.2 x10^3/uL (1.8-7.7) 2.8 x10^3/uL (1.8-7.7) Lymphocytes # (Auto) 1.8 x10^3/uL (1.0-4.8) 2.0 x10^3/uL (1.0-4.8) Monocytes # (Auto) 0.5 x10^3/uL (0.0-1.1) 0.4 x10^3/uL (0.0-1.1) Eosinophils # (Auto) 0.4 x10^3/uL (0.0-0.7) 0.3 x10^3/uL (0.0-0.7) Basophils # (Auto) 0.0 x10^3/uL (0.0-0.2) 0.0 x10^3/uL (0.0-0.2) Sodium Level 144 mmol/L (136-145) 144 mmol/L (136-145) Potassium Level 3.8 mmol/L (3.5-5.1) 4.1 mmol/L (3.5-5.1) Chloride Level 107 mmol/L (98-107) 107 mmol/L (98-107) Carbon Dioxide Level 29 mmol/L (21-32) 31 mmol/L (21-32) Anion Gap 8 (6-14) 6 (6-14) Blood Urea Nitrogen 11 mg/dL (8-26) 9 mg/dL (8-26) Creatinine 0.7 mg/dL (0.7-1.3) 0.8 mg/dL (0.7-1.3) Estimated GFR (Cockcroft-Gault) 115.4 98.9 Glucose Level 99 mg/dL (70-99) 85 mg/dL (70-99) Calcium Level 8.6 mg/dL (8.5-10.1) 8.4 mg/dL (8.5-10.1) BUN/Creatinine Ratio 11 (6-20) Total Bilirubin 0.2 mg/dL (0.2-1.0) Aspartate Amino Transf (AST/SGOT) 15 U/L (15-37) Alanine Aminotransferase (ALT/SGPT) 19 U/L (16-63) Alkaline Phosphatase 65 U/L (46-116) Total Protein 6.0 g/dL (6.4-8.2) Albumin 3.0 g/dL (3.4-5.0) Albumin/Globulin Ratio 1.0 (1.0-1.7) Microbiology 01/26/21 Urine Culture - Final, Complete Medications Current Medications Iohexol (Omnipaque 300 Mg/ml) 75 ml 1X ONCE IV Last administered on 01/26/21at 14:54; Start 01/26/21 at 14:30; Stop 01/26/21 at 14:31; Status DC Info (CONTRAST GIVEN -- Rx MONITORING) 1 each PRN DAILY PRN MC SEE COMMENTS; Start 01/26/21 at 14:30; Stop 01/28/21 at 14:29; Status DC Fentanyl Citrate (Fentanyl 2ml Vial) 50 mcg 1X ONCE IV Last administered on 01/26/21at 14:59; Start 01/26/21 at 14:30; Stop 01/26/21 at 14:31; Status DC Ondansetron HCl (Zofran) 4 mg 1X ONCE IV Last administered on 01/26/21at 14:59; Start 01/26/21 at 14:30; Stop 01/26/21 at 14:31; Status DC Insulin Human Lispro (HumaLOG) 0-7 UNITS TIDWMEALS SQ ; Start 01/27/21 at 08:00; Stop 01/29/21 at 11:43; Status DC Dextrose (Dextrose 50%-Water Syringe) 12.5 gm PRN Q15MIN PRN IV SEE COMMENTS; Start 01/26/21 at 18:15; Stop 01/29/21 at 11:43; Status DC Dextrose (Iv Dextrose 5%) 250 ml PRN Q15MIN PRN IV SEE COMMENTS; Start 01/26/21 at 18:15; Status UNV Ondansetron HCl (Zofran) 4 mg PRN Q6HRS PRN IVP NAUSEA/VOMITING Last administered on 01/28/21at 04:08; Start 01/26/21 at 18:15 Al Hydroxide/Mg Hydroxide (Mylanta Plus Xs) 30 ml PRN Q3HRS PRN PO HEARTBURN / GAS; Start 01/26/21 at 18:15 Calcium Carbonate/ Glycine (Tums) 500 mg PRN Q3HRS PRN PO UPSET STOMACH; Start 01/26/21 at 18:15 Zolpidem Tartrate (Ambien) 5 mg PRN QHS PRN PO INSOMNIA, MAY REPEAT IN 1HR Last administered on 01/27/21at 23:55; Start 01/26/21 at 18:15 Morphine Sulfate (Morphine Sulfate) 2 mg PRN Q1HR PRN IV MODERATE PAIN Last administered on 01/26/21at 19:27; Start 01/26/21 at 18:15; Stop 01/28/21 at 09:01; Status DC Acetaminophen/ Hydrocodone Bitart (Lortab 5/325) 1 tab PRN Q4HRS PRN PO MILD PAIN 1-3; Start 01/26/21 at 18:15; Stop 01/28/21 at 09:01; Status DC Acetaminophen/ Hydrocodone Bitart (Lortab 5/325) 2 tab PRN Q4HRS PRN PO MODERATE PAIN Last administered on 01/28/21at 04:39; Start 01/26/21 at 18:15; Stop 01/28/21 at 09:01; Status DC Hydromorphone HCl (Dilaudid) 2 mg PRN Q4HRS PRN PO MODERATE PAIN, 2ND CHOICE; Start 01/26/21 at 18:15; Stop 01/28/21 at 09:01; Status DC Hydromorphone HCl (Dilaudid) 4 mg PRN Q4HRS PRN PO SEVERE PAIN; Start 01/26/21 at 18:15; Stop 01/28/21 at 09:01; Status DC Acetaminophen (Tylenol) 650 mg PRN Q6HRS PRN PO Headaches, Temp > 101.5F Last administered on 01/30/21at 11:15; Start 01/26/21 at 18:15 Magnesium Hydroxide (Milk Of Magnesia) 2,400 mg PRN Q12HR PRN PO CONSTIPATION (1st Choice) Last administered on 01/27/21at 16:39; Start 01/26/21 at 18:15 Bisacodyl (Dulcolax Supp) 10 mg PRN DAILY PRN MD CONSTIPATION; Start 01/26/21 at 18:15 Heparin Sodium (Porcine) (Heparin Sodium) 5,000 unit Q8HRS SQ Last administered on 02/01/21 06:36; Start 01/26/21 at 22:00 Hydromorphone HCl (Dilaudid) 2 mg PRN Q4HRS PRN IVP SEVERE PAIN Last administered on 01/27/21 09:37; Start 01/26/21 at 18:15; Stop 01/28/21 at 09:01; Status DC Lorazepam (Ativan Inj) 2 mg PRN Q4HRS PRN IVP ANXIETY / AGITATION Last administered on 02/01/21 06:32; Start 01/26/21 at 18:15 Trazodone HCl (Desyrel) 75 mg HS PO Last administered on 01/31/21 20:58; Start 01/26/21 at 21:30 Clonazepam (KlonoPIN) 1 mg TID PO Last administered on 01/27/21 09:32; Start 01/26/21 at 21:30; Stop 01/27/21 at 13:36; Status DC Cephalexin HCl (Keflex) 500 mg TID PO Last administered on 01/30/21 09:33; Start 01/27/21 at 09:00; Stop 01/30/21 at 13:51; Status DC Lactobacillus Rhamnosus (Culturelle) 1 cap BID PO Last administered on 02/01/21 07:56; Start 01/27/21 at 21:00 Clonazepam (KlonoPIN) 1 mg PRN TID PRN PO anxiety Last administered on 01/31/21 20:58; Start 01/27/21 at 13:45 Gadoterate Meglumine (Clariscan) 17 ml 1X ONCE IVP Last administered on 01/27/21 14:54; Start 01/27/21 at 13:45; Stop 01/27/21 at 13:49; Status DC Senna/Docusate Sodium (Senna Plus) 1 tab BID PO Last administered on 02/01/21 07:56; Start 01/27/21 at 21:00 Polyethylene Glycol (miraLAX PACKET) 17 gm DAILY PO Last administered on 02/01/21 07:56; Start 01/28/21 at 09:00 Bisacodyl (Dulcolax Tab) 10 mg PRN DAILY PRN PO CONSTIPATION (2nd Choice) Last administered on 6/9/21at 16:40; Start 01/27/21 at 16:15 Tamsulosin HCl (Flomax) 0.4 mg QHS PO Last administered on 01/31/21at 20:57; Start 01/27/21 at 21:00 Polyethylene Glycol (miraLAX PACKET) 17 gm DAILY PO ; Start 01/27/21 at 16:15; Status UNV Senna/Docusate Sodium (Senna Plus) 1 tab DAILY PO ; Start 01/27/21 at 16:15; Status UNV Gabapentin (Neurontin) 300 mg QID PO Last administered on 02/01/21at 07:56; Start 01/28/21 at 09:30 Levothyroxine Sodium (Synthroid) 200 mcg DAILY06 PO Last administered on 01/19 12/09at 06:21; Start 01/28/21 at 09:30 Methadone HCl (Dolophine) 10 mg TID PO Last administered on 02/01/21at 08:02; Start 01/28/21 at 09:00 Daptomycin 450 mg/ Sodium Chloride 50 ml @ 100 mls/hr Q24H IV Last administered on 01/31/21at 13:09; Start 01/28/21 at 12:30 Meropenem 500 mg/ Sodium Chloride 50 ml @ 100 mls/hr Q8HRS IV Last administered on 01/30/21at 06:04; Start 01/28/21 at 14:00; Stop 01/30/21 at 15:56; Status DC Lidocaine HCl (Buffered Lidocaine 1%) 3 ml STK-MED ONCE .ROUTE ; Start 01/28/21 at 14:32; Stop 01/28/21 at 14:33; Status DC Lidocaine HCl (Buffered Lidocaine 1%) 3 ml 1X ONCE INJ Last administered on 01/28/21at 15:22; Start 01/28/21 at 15:15; Stop 01/28/21 at 15:16; Status DC Cyanocobalamin (Vitamin B-12 Inj) 1,000 mcg 1X ONCE IM Last administered on 01/29/21at 09:28; Start 01/29/21 at 07:30; Stop 01/29/21 at 07:31; Status DC Meropenem 500 mg/ Sodium Chloride 50 ml @ 100 mls/hr Q6HRS IV Last administered on 02/01/21at 06:22; Start 01/30/21 at 18:00 Micafungin Sodium 100 mg/Dextrose 100 ml @ 100 mls/hr Q24H IV Last administered on 01/31/21at 17:00; Start 01/30/21 at 17:00 Active Scripts Active Percocet 5-325 Mg Tablet (Oxycodone/Acetaminophen) 1 Each Tablet 1 Tab PO PRN Q6HRS PRN 5 Days Metformin Hcl Er (Metformin Hcl) 500 Mg Tab.er.24h 500 Mg PO DAILYWBKFT 30 Days Reported Klonopin (Clonazepam) 1 Mg Tablet 1 Tab PO TID Trazodone Hcl 100 Mg Tablet 75 Mg PO HS Keflex (Cephalexin) 750 Mg Capsule 500 Mg PO TID Ferrous Sulfate 325 Mg Tablet 1 Tab PO BID Cyclobenzaprine Hcl 10 Mg Tablet 10 Mg PO HS Nifedipine Er (Nifedipine) 30 Mg Tablet.er 30 Mg PO HS Atenolol 50 Mg Tablet 50 Mg PO DAILY Losartan Potassium 100 Mg Tablet 100 Mg PO DAILY16 Colace (Docusate Sodium) 100 Mg Capsule 100 Mg PO DAILY Gabapentin 600 Mg Tablet 1,800 Mg PO BID Levothyroxine Sodium 200 Mcg Tablet 200 Mcg PO DAILYAC Hydrochlorothiazide Tablet (Hydrochlorothiazide) 25 Mg Tablet 50 Mg PO DAILY Vitals/I & O Vital Sign - Last 24 Hours 01/31/21 01/31/21 01/31/21 01/31/21 11:00 15:00 19:00 19:40 Temp 98.3 98.5 97.6 98.3 98.5 97.6 Pulse 86 82 96 Resp 14 14 16 B/P (MAP) 120/71 (87) 128/76 (93) 135/77 (96) Pulse Ox 96 94 93 O2 Delivery Room Air Room Air Room Air Room Air 01/31/21 02/01/21 02/01/21 23:00 03:00 06:48 Temp 97.9 98.1 98.0 97.9 98.1 98.0 Pulse 77 73 85 Resp 16 16 18 B/P (MAP) 132/77 (95) 135/74 (94) 160/84 (109) Pulse Ox 94 94 96 O2 Delivery Room Air Room Air Room Air Intake and Output 01/31/21 01/31/21 02/01/21 14:59 22:59 06:59 Intake Total 360 ml 480 ml 120 ml Output Total 200 ml 200 ml 450 ml Balance 160 ml 280 ml -330 ml Justifications for Admission Other Justification Lumbar spinal stenosis concerning for cauda equina syndrome RENETTA HOWARD MD Feb 01, 2021 09:03
--- NOTE | 2021-02-01 09:08 | PDOC ---
Infectious Disease Note Subjective: Subjective Pt is getting ready to work with PT and OT Back pain some better - can move legs better some right thigh and knee pain earlier Denies difficulty urinating. No loss of bowel/bladder control Denies fever/chills/N/V/D/rash Vital Signs: Vital Signs Vital Signs Date Time Temp Pulse Resp B/P (MAP) Pulse Ox O2 Delivery O2 Flow Rate FiO2 02/01/21 06:48 98.0 85 18 160/84 (109) 96 Room Air 98.0 Physical Exam: PHYSICAL EXAM GENERAL: alert awake, sitting in bed appears comfortable HEENT: Normal conjunctivae. Oral cavity clear NECK: Supple. No JVP, no lymphadenopathy. LUNGS: Clear. HEART: S1, S2 regular. ABDOMEN: Soft, nontender. EXTREMITIES: No edema or cyanosis. Right knee wo redness/warmth/swelling. SKIN: No signs of gen rash. Groin yeast some better NEUROLOGIC: Alert, awake, and appropriate. MSK scar over cervical spine, lumbar spine healed some paraspinal pain in the low back, no dec in range of motion at neck RUE-PICC (01/28) clean Medications: Inpatient Meds: Medications reviewed. Labs: Lab Laboratory Tests Test 01/31/21 09:28 02/01/21 06:25 White Blood Count 5.8 x10^3/uL (4.0-11.0) 5.6 x10^3/uL (4.0-11.0) Red Blood Count 2.52 x10^6/uL (4.30-5.70) 2.39 x10^6/uL (4.30-5.70) Hemoglobin 7.9 g/dL (13.0-17.5) 7.6 g/dL (13.0-17.5) Hematocrit 23.6 % (39.0-53.0) 22.4 % (39.0-53.0) Mean Corpuscular Volume 94 fL (79-100) 94 fL (79-100) Mean Corpuscular Hemoglobin 32 pg (25-35) 32 pg (25-35) Mean Corpuscular Hemoglobin Concent 34 g/dL (31-37) 34 g/dL (31-37) Red Cell Distribution Width 14.9 % (11.5-14.5) 15.4 % (11.5-14.5) Platelet Count 108 x10^3/uL (140-400) 129 x10^3/uL (140-400) Neutrophils (%) (Auto) 55 % (31-73) 51 % (31-73) Lymphocytes (%) (Auto) 30 % (24-48) 36 % (24-48) Monocytes (%) (Auto) 8 % (0-9) 7 % (0-9) Eosinophils (%) (Auto) 7 % (0-3) 6 % (0-3) Basophils (%) (Auto) 1 % (0-3) 1 % (0-3) Neutrophils # (Auto) 3.2 x10^3/uL (1.8-7.7) 2.8 x10^3/uL (1.8-7.7) Lymphocytes # (Auto) 1.8 x10^3/uL (1.0-4.8) 2.0 x10^3/uL (1.0-4.8) Monocytes # (Auto) 0.5 x10^3/uL (0.0-1.1) 0.4 x10^3/uL (0.0-1.1) Eosinophils # (Auto) 0.4 x10^3/uL (0.0-0.7) 0.3 x10^3/uL (0.0-0.7) Basophils # (Auto) 0.0 x10^3/uL (0.0-0.2) 0.0 x10^3/uL (0.0-0.2) Sodium Level 144 mmol/L (136-145) 144 mmol/L (136-145) Potassium Level 3.8 mmol/L (3.5-5.1) 4.1 mmol/L (3.5-5.1) Chloride Level 107 mmol/L (98-107) 107 mmol/L (98-107) Carbon Dioxide Level 29 mmol/L (21-32) 31 mmol/L (21-32) Anion Gap 8 (6-14) 6 (6-14) Blood Urea Nitrogen 11 mg/dL (8-26) 9 mg/dL (8-26) Creatinine 0.7 mg/dL (0.7-1.3) 0.8 mg/dL (0.7-1.3) Estimated GFR (Cockcroft-Gault) 115.4 98.9 Glucose Level 99 mg/dL (70-99) 85 mg/dL (70-99) Calcium Level 8.6 mg/dL (8.5-10.1) 8.4 mg/dL (8.5-10.1) BUN/Creatinine Ratio 11 (6-20) Total Bilirubin 0.2 mg/dL (0.2-1.0) Aspartate Amino Transf (AST/SGOT) 15 U/L (15-37) Alanine Aminotransferase (ALT/SGPT) 19 U/L (16-63) Alkaline Phosphatase 65 U/L (46-116) Total Protein 6.0 g/dL (6.4-8.2) Albumin 3.0 g/dL (3.4-5.0) Albumin/Globulin Ratio 1.0 (1.0-1.7) Objective: Assessment: Low Back pain, most likely is musculoskeletal. Abnormal MRI possible reactivation or new infection Urinary retention. UC 20K JATIN DUBLINIENSIS History of MSSA bacteremia and extensive spinal infection in October 2020. Pt was on keflex for a couple of months Hypertension. Anemia s/p PRBCs Yeast in groin Thrombocytopenia Elevated serum kappa and lambda Plan: Plan of Care C spine and T spine MRI noted, with new epidural and other collection, ?? post surgery changes, ? new infection or reactivation of infection pt clinically does not have any signs of infection of infection, sed rate 31 and crp not very high 2.1 no other clinical evidence for infection Dr. Bowie concerned about infection with the new changes so decision made to treat with a new full course of IV antibiotics. The area and the amount of fluid collection is not enough for us to be able to obtain the sample Continue dapto and meropenem , Cont Micafungin Monitor labs/temp Pain management per primary Hematology consulted by primary Pt and OT as tolerated CORNELIA CAMARILLO MD Feb 01, 2021 09:08
--- NOTE | 2021-02-01 09:24 | RAD ---
INDICATION: Reason: abnormal kub / Spl. Instructions: / History: COMPARISON: January 26, 2021 IMPRESSION: Abdomen: 2 views obtained. Degenerative changes the spine. Degenerative changes the hips. Repeat demo nstration of air-filled dilated loops of colon in a nonspecific pattern. This appears slightly decrea sed from prior. Electronically signed by: Ivan Sheriff MD (02/01/2021 9:22 AM) [id number]
[2021-02-01 10:21] VITALS: BP 143/94
--- NOTE | 2021-02-01 11:08 | PDOC2 ---
GI CONSULT Date of Service: DATE: 02/01/21 TIME: 11:08 Reason For Consult: abnormal KUB HPI: HPI: 61 y/o male who we've seen in the past. Admitted last week w/ back pain and urinary retention. On KUB: air-filled dilated loops of colon in a nonspecific pattern, slightly decreased from prior. No GI concerns per pt or nurse. He reports tolerating diet, no n/v, no abd pain, and having "pretty normal" stools w/o bleeding. Per past encounter, h/o constipation, no previous colonoscopy. GB sludge on past US, normal liver on past CT. 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 GEN: Denies fevers, chills, sweats HEENT: Denies blurred vision, sore throat CV: Denies chest pain RESP: Denies shortness of air, cough GI: Per HPI : Denies hematuria, dysuria ENDO: Denies weight changes NEURO: Denies confusion, dizziness MSK: +leg weakness SKIN: Denies jaundice, pruritus Vitals: Vitals: Vital Signs Date Time Temp Pulse Resp B/P (MAP) Pulse Ox O2 Delivery O2 Flow Rate FiO2 02/01/21 10:21 99.2 109 18 143/94 (110) 94 Room Air 99.2 Labs: Labs: Laboratory Tests Test 02/01/21 06:25 White Blood Count 5.6 x10^3/uL (4.0-11.0) Red Blood Count 2.39 x10^6/uL (4.30-5.70) Hemoglobin 7.6 g/dL (13.0-17.5) Hematocrit 22.4 % (39.0-53.0) Mean Corpuscular Volume 94 fL (79-100) Mean Corpuscular Hemoglobin 32 pg (25-35) Mean Corpuscular Hemoglobin Concent 34 g/dL (31-37) Red Cell Distribution Width 15.4 % (11.5-14.5) Platelet Count 129 x10^3/uL (140-400) Neutrophils (%) (Auto) 51 % (31-73) Lymphocytes (%) (Auto) 36 % (24-48) Monocytes (%) (Auto) 7 % (0-9) Eosinophils (%) (Auto) 6 % (0-3) Basophils (%) (Auto) 1 % (0-3) Neutrophils # (Auto) 2.8 x10^3/uL (1.8-7.7) Lymphocytes # (Auto) 2.0 x10^3/uL (1.0-4.8) Monocytes # (Auto) 0.4 x10^3/uL (0.0-1.1) Eosinophils # (Auto) 0.3 x10^3/uL (0.0-0.7) Basophils # (Auto) 0.0 x10^3/uL (0.0-0.2) Sodium Level 144 mmol/L (136-145) Potassium Level 4.1 mmol/L (3.5-5.1) Chloride Level 107 mmol/L (98-107) Carbon Dioxide Level 31 mmol/L (21-32) Anion Gap 6 (6-14) Blood Urea Nitrogen 9 mg/dL (8-26) Creatinine 0.8 mg/dL (0.7-1.3) Estimated GFR (Cockcroft-Gault) 98.9 BUN/Creatinine Ratio 11 (6-20) Glucose Level 85 mg/dL (70-99) Calcium Level 8.4 mg/dL (8.5-10.1) Total Bilirubin 0.2 mg/dL (0.2-1.0) Aspartate Amino Transf (AST/SGOT) 15 U/L (15-37) Alanine Aminotransferase (ALT/SGPT) 19 U/L (16-63) Alkaline Phosphatase 65 U/L (46-116) Total Protein 6.0 g/dL (6.4-8.2) Albumin 3.0 g/dL (3.4-5.0) Albumin/Globulin Ratio 1.0 (1.0-1.7) URINE CULTURE Final Final 20,000 CFU/ML [JATIN DUBLINIENSIS] Allergies: Coded Allergies: fentanyl (Verified Allergy, Intermediate, Rash, 06/20/16) escitalopram (Verified Adverse Reaction, Severe, 11/17/20) severe headache like head is exploding fluoxetine (Verified Adverse Reaction, Severe, 06/20/16) severe headache like head is exploding duloxetine (Verified Adverse Reaction, Intermediate, Nausea and Vomiting, 06/20/16) metaxalone (Verified Adverse Reaction, Intermediate, Nausea and Vomiting, 06/20/16) oxycodone (Verified Adverse Reaction, Intermediate, Nausea and Vomiting, 06/20/16) pregabalin (Verified Adverse Reaction, Intermediate, Nausea and Vomiting, 06/20/16) tramadol (Verified Adverse Reaction, Intermediate, Nausea and Vomiting, 06/20/16) Imaging: Imaging: L-spine CT 01/26 IMPRESSION: Redemonstrated changes of discitis osteomyelitis at L3-L4 with at least moderate spinal canal stenosis at that level similar to the prior study. Abd X-Ray 01/26 IMPRESSION: There is dilation of a segment of colon measuring up to 6.5 cm. This is of uncertain clinical significance, obstruction or focal ileus could have this appearance. No abnormal small bowel dilatation. Contrast is seen within the bladder. Changes of the spine better assessed on dedicated CT. No free intraperitoneal gas. Right Knee X-Ray 01/27 IMPRESSION: 1. No periprosthetic lucency. A trace joint effusion has decreased since the prior study. C and T spine MRI 01/27 IMPRESSION: 1. Complete to near complete resolution of previously demonstrated epidural enhancement consistent with abscess throughout the and majority of the thoracic levels, consistent with interval treatment response. There is a new small enhancing ventral epidural collection measuring 2 mm in thickness at T1-T2 which is likely infectious given extensive adjacent marrow edema involving the posterior elements and surrounding soft tissues at C7-T1. There are new small peripherally enhancing fluid collections posterior to the facet joints at this level and within the left dorsal central canal which may be due to superinfected synovial cysts or abscesses. 2. Significant interval decrease in previously demonstrated epidural enhancement at the cervical levels, consistent with interval treatment response. 3. Laminectomy changes at C3 and T2 and T3 with overlying edema and enhancing scar/granulation tissue. This exerts no mass effect on the thecal sac. 4. Severe multilevel degenerative change involving the cervical spine, resulting in significant stenosis at the aforementioned levels. The central canal stenosis is severe at C4-C5, C5-C6 and C6-C7, resulting in deformation of the cervical spinal cord. No convincing cord edema or myelomalacia is seen. 5. Mild multilevel degenerative change involving the thoracic spine, resulting in foraminal stenosis at the aforementioned levels. No thoracic central canal stenosis is seen. 6. Please refer to the separate report for the recent lumbar spine MRI performed 01/20/2021 for additional findings. S/p PICC placement 01/28 KUB 02/01 IMPRESSION: Abdomen: 2 views obtained. Degenerative changes the spine. Degenerative changes the hips. Repeat demonstration of air-filled dilated loops of colon in a nonspec ific pattern. This appears slightly decreased from prior. PE: GEN: NAD - up in chair, was asleep HEENT: Atraumatic, PERRL LUNGS: CTAB anteriorly HEART: RR ABD: NABS, S/ND/NT EXTREMITY: No edema SKIN: No rashes, no jaundice NEURO/PSYCH: A & O 3, gives limited info A/P: A/P: Urinary retention, back pain - better H/o MSSA bacteremia, spinal infection 10/2020 - ?reactivation/new infection now - on atbx per ID, followed by neurosurg Anemia, thrombocytopenia - normal B12 and irons prior to transfusions; heme opinion pending CRC screen - none H/o constipation Chronic pain on methadone -- Eating and stooling without issue per pt and nursing. Continue support per GI. LULA PACE Feb 01, 2021 11:08
[2021-02-01] MEDS: DAPTOmycin (GENERIC) IVPB 450 MG in IV NORMAL SALINE 50ML 50 ML IV SCH (12:19)
--- NOTE | 2021-02-01 12:28 | NUR ---
REMY following. Discussed with RN, pt from home with , room air, ada diet. REMY received call from pt's at 1630 on Monday requesting pt be placed in SNF - SW explained pt is in his copay days, pt's requested SW determine copay amount. REMY contacted pt's back to advise it would likely be around $184 a day. Pt's spoke with pt, they decided they cannot afford this, and would like to go home with [facility] and home infusion. Pt currently on 3 IV abx. REMY spoke with pt's , Radha - she is agreeable to a referral to LTAC ([facility]). When REMY spoke with pt earlier, pt was very sleepy so REMY will discuss with pt when more alert. Radha okay with referral to determine if pt would even qualify. REMY verified with Dolores at [facility], they have discharges all week this week so should have a bed if insurance approves. Referral faxed to [facility]. REMY will continue to follow. Addendum: 02/01/21 at 1609 by FABIENNE ALBERTO Pt accepted at [facility], pending REV codes and insurance auth. Addendum: 02/01/21 at 1613 by FABIENNE ALBERTO Pt does not have CODES for LTAC, per Dolores ([facility]). Pt will have to discharge home with home infusion and [facility]. REMY notified pt's , Radha (ph: [phone]).
[2021-02-01] MEDS: clonazePAM 0.5 MG TABLET PO PRN (13:37)
[2021-02-01 14:32] VITALS: BP 135/74
[2021-02-01 17:13] LABS: PROTHROMBIN TIME PATIENT 12.3 SEC (11.7-14.0)
[2021-02-01] MEDS: MICAFUNGIN 100 MG in IV DEXTROSE 5% 100ML 100 ML IV SCH (17:17)
[2021-02-01 19:00] VITALS: BP 145/76
[2021-02-01] MEDS: traZODone 50 MG TABLET. PO SCH (21:14)
[2021-02-01] MEDS: TAMSULOSIN 0.4 MG CAP.ER.24H. PO SCH (21:15)
[2021-02-01 23:00] VITALS: BP 147/81
[2021-02-02] MEDS: MEROPENEM 500 MG in IV NORMAL SALINE 50ML 50 ML IV SCH ×5 (00:20→23:29)
[2021-02-02 03:00] VITALS: BP 147/82
[2021-02-02 05:30] LABS: BASO % 1 % (0-3); EOS # 0.2 x10^3/uL (0.0-0.7); EOS % 5 % (0-3); HEMATOCRIT 22.7 % (39.0-53.0); HEMOGLOBIN 7.5 g/dL (13.0-17.5); LYMPH # 1.8 x10^3/uL (1.0-4.8); LYMPH % 35 % (24-48); MEAN CORPUSCULAR HEMOGLOBIN 31 pg (25-35); MEAN CORPUSCULAR HGB CONC 33 g/dL (31-37); MEAN CORPUSCULAR VOLUME 94 fL (79-100); MONO # 0.4 x10^3/uL (0.0-1.1); MONO % 7 % (0-9); NEUT # 2.8 x10^3/uL (1.8-7.7); NEUT % 53 % (31-73); PLATELET COUNT 155 x10^3/uL (140-400); RED BLOOD COUNT 2.41 x10^6/uL (4.30-5.70); WHITE BLOOD COUNT 5.2 x10^3/uL (4.0-11.0)
[2021-02-02] MEDS: LEVOTHYROXINE 100 MCG TABLET PO SCH (05:35)
[2021-02-02 05:38] LABS: CALCIUM 8.4 mg/dL (8.5-10.1); CREATININE 0.6 mg/dL (0.7-1.3); GFR 137.9
[2021-02-02] MEDS: HEPARIN for SUB-Q USE 5,000 UNIT/ML VIAL. SQ SCH ×3 (05:38→21:38)
[2021-02-02 06:58] VITALS: BP 143/80
[2021-02-02] MEDS ORDERED: PANTOPRAZOLE IV PUSH 40 MG VIAL. IVP SCH (07:30)
--- NOTE | 2021-02-02 07:54 | PDOC ---
Infectious Disease Note Subjective: Subjective Back pain some better - can move legs better Denies difficulty urinating. No loss of bowel/bladder control Denies fever/chills/N/V/D/rash Tolerating po intake well Vital Signs: Vital Signs Vital Signs Date Time Temp Pulse Resp B/P (MAP) Pulse Ox O2 Delivery O2 Flow Rate FiO2 02/02/21 07:38 Room Air 02/02/21 06:58 98.1 79 18 143/80 (101) 91 98.1 Physical Exam: PHYSICAL EXAM GENERAL: alert awake, sitting in bed appears comfortable HEENT: Normal conjunctivae. Oral cavity clear NECK: Supple. No JVP, no lymphadenopathy. LUNGS: Clear. HEART: S1, S2 regular. ABDOMEN: Soft, nontender. EXTREMITIES: No edema or cyanosis. Right knee wo redness/warmth/swelling. SKIN: No signs of gen rash. Groin yeast some better,dry flaky skin NEUROLOGIC: Alert, awake, and appropriate. MSK scar over cervical spine, lumbar spine healed some paraspinal pain in the low back, no dec in range of motion at neck RUE-PICC (01/28) clean Medications: Inpatient Meds: Medications reviewed. Labs: Lab Laboratory Tests Test 02/01/21 16:40 02/02/21 04:30 Prothrombin Time 12.3 SEC (11.7-14.0) Prothromb Time International Ratio 0.9 (0.8-1.1) White Blood Count 5.2 x10^3/uL (4.0-11.0) Red Blood Count 2.41 x10^6/uL (4.30-5.70) Hemoglobin 7.5 g/dL (13.0-17.5) Hematocrit 22.7 % (39.0-53.0) Mean Corpuscular Volume 94 fL (79-100) Mean Corpuscular Hemoglobin 31 pg (25-35) Mean Corpuscular Hemoglobin Concent 33 g/dL (31-37) Red Cell Distribution Width 15.0 % (11.5-14.5) Platelet Count 155 x10^3/uL (140-400) Neutrophils (%) (Auto) 53 % (31-73) Lymphocytes (%) (Auto) 35 % (24-48) Monocytes (%) (Auto) 7 % (0-9) Eosinophils (%) (Auto) 5 % (0-3) Basophils (%) (Auto) 1 % (0-3) Neutrophils # (Auto) 2.8 x10^3/uL (1.8-7.7) Lymphocytes # (Auto) 1.8 x10^3/uL (1.0-4.8) Monocytes # (Auto) 0.4 x10^3/uL (0.0-1.1) Eosinophils # (Auto) 0.2 x10^3/uL (0.0-0.7) Basophils # (Auto) 0.0 x10^3/uL (0.0-0.2) Absolute Reticulocyte Count 0.046 x10^6/uL (0.020-0.120) Percent Reticulocyte Count 1.9 % (0.5-2.3) Immature Reticulocyte Fraction 0.61 (0.20-0.60) Sodium Level 143 mmol/L (136-145) Potassium Level 4.0 mmol/L (3.5-5.1) Chloride Level 107 mmol/L (98-107) Carbon Dioxide Level 28 mmol/L (21-32) Anion Gap 8 (6-14) Blood Urea Nitrogen 9 mg/dL (8-26) Creatinine 0.6 mg/dL (0.7-1.3) Estimated GFR (Cockcroft-Gault) 137.9 Glucose Level 90 mg/dL (70-99) Calcium Level 8.4 mg/dL (8.5-10.1) Objective: Assessment: Low Back pain, most likely is musculoskeletal. Abnormal MRI possible reactivation or new infection Urinary retention. UC 20K JATIN DUBLINIENSIS History of MSSA bacteremia and extensive spinal infection in October 2020. Pt was on keflex for a couple of months Hypertension. Anemia s/p PRBCs Yeast in groin Thrombocytopenia Elevated serum kappa and lambda Abn KUB Plan: Plan of Care C spine and T spine MRI noted, with new epidural and other collection, ?? post surgery changes, ? new infection or reactivation of infection pt clinically does not have any signs of infection of infection, sed rate 31 and crp not very high 2.1 no other clinical evidence for infection Dr. Bowie concerned about infection with the new changes so decision made to treat with a new full course of IV antibiotics. The area and the amount of fluid collection is not enough for us to be able to obtain the sample for cultures Continue dapto and meropenem , Cont Micafungin KUB noted, Monitor labs/temp Pain management per primary Hematology consulted by primary Pt and OT as tolerated CORNELIA CAMARILLO MD Feb 02, 2021 07:54
[2021-02-02] MEDS: LACTOBACILLUS RHAMNOSUS GG 1 CAPSULE. PO SCH ×2 (09:25→20:39)
[2021-02-02] MEDS: GABAPENTIN 300 MG CAPSULE. PO SCH ×4 (09:25→20:39)
[2021-02-02] MEDS: METHADONE 10 MG TABLET. PO SCH ×3 (09:25→20:39)
[2021-02-02] MEDS: SENNOSIDES/DOCUSATE 8.6/50MG TABLET. PO SCH ×2 (09:25→20:39)
[2021-02-02] MEDS: POLYETHYLENE GLYCOL 3350 17 GM PACKET. PO SCH (09:25)
--- NOTE | 2021-02-02 10:19 | PDOC ---
Date of Service: DATE: 02/02/21 TIME: 10:15 Objective: Objective: Stool charted. Plans for SNU on DC. Vital Signs: Vital Signs Date Time Temp Pulse Resp B/P (MAP) Pulse Ox O2 Delivery O2 Flow Rate FiO2 02/02/21 07:38 Room Air 02/02/21 06:58 98.1 79 18 143/80 (101) 91 98.1 Labs: Laboratory Tests Test 02/01/21 16:40 02/02/21 04:30 Prothrombin Time 12.3 SEC Prothromb Time International Ratio 0.9 White Blood Count 5.2 x10^3/uL Red Blood Count 2.41 x10^6/uL Hemoglobin 7.5 g/dL Hematocrit 22.7 % Mean Corpuscular Volume 94 fL Mean Corpuscular Hemoglobin 31 pg Mean Corpuscular Hemoglobin Concent 33 g/dL Red Cell Distribution Width 15.0 % Platelet Count 155 x10^3/uL Neutrophils (%) (Auto) 53 % Lymphocytes (%) (Auto) 35 % Monocytes (%) (Auto) 7 % Eosinophils (%) (Auto) 5 % Basophils (%) (Auto) 1 % Neutrophils # (Auto) 2.8 x10^3/uL Lymphocytes # (Auto) 1.8 x10^3/uL Monocytes # (Auto) 0.4 x10^3/uL Eosinophils # (Auto) 0.2 x10^3/uL Basophils # (Auto) 0.0 x10^3/uL Absolute Reticulocyte Count 0.046 x10^6/uL Percent Reticulocyte Count 1.9 % Immature Reticulocyte Fraction 0.61 Sodium Level 143 mmol/L Potassium Level 4.0 mmol/L Chloride Level 107 mmol/L Carbon Dioxide Level 28 mmol/L Anion Gap 8 Blood Urea Nitrogen 9 mg/dL Creatinine 0.6 mg/dL Estimated GFR (Cockcroft-Gault) 137.9 Glucose Level 90 mg/dL Calcium Level 8.4 mg/dL PE: GEN: NAD - sleeping, did not awaken - breakfast tray completely empty A/P: Urinary retention, back pain - better H/o MSSA bacteremia, spinal infection 10/2020 - ?reactivation Anemia H/o constipation Chronic pain on methadone -- Stable GI-zepeda. Outpt colonoscopy later on. Is on IV PPI but eating regular diet so will change to PO. Justicifation of Admission Dx: Justifications for Admission: Justification of Admission Dx: Yes LULA PACE Feb 02, 2021 10:19
--- NOTE | 2021-02-02 10:20 | PDOC ---
PROGRESS NOTES Date of Service DATE: 02/02/21 TIME: 10:18 Subjective Subjective No new complaints. Objective Objective Vital Signs Date Time Temp Pulse Resp B/P (MAP) Pulse Ox O2 Delivery O2 Flow Rate FiO2 02/02/21 07:38 Room Air 02/02/21 06:58 98.1 79 18 143/80 (101) 91 98.1 01/30/21 11:00 2.0 Intake and Output 02/02/21 06:59 Intake Total 500 ml Output Total 600 ml Balance -100 ml Intake Oral 200 ml IV Total 300 ml Output Urine Total 600 ml # Voids 1 # Bowel Movements 1 Physical Exam Physical Exam He is alert,sitting on commode and he is walking with roller walker in his room. Assessment Assessment Problems Medical Problems: (1) Urinary retention Status: Acute Plan Plan of [facility] with home health follow up when medically stable. Comment Review of Relevant I have reviewed the following items almas (where applicable) has been applied. Labs Laboratory Tests Test 02/01/21 06:25 02/01/21 16:40 02/02/21 04:30 White Blood Count 5.6 x10^3/uL (4.0-11.0) 5.2 x10^3/uL (4.0-11.0) Red Blood Count 2.39 x10^6/uL (4.30-5.70) 2.41 x10^6/uL (4.30-5.70) Hemoglobin 7.6 g/dL (13.0-17.5) 7.5 g/dL (13.0-17.5) Hematocrit 22.4 % (39.0-53.0) 22.7 % (39.0-53.0) Mean Corpuscular Volume 94 fL (79-100) 94 fL (79-100) Mean Corpuscular Hemoglobin 32 pg (25-35) 31 pg (25-35) Mean Corpuscular Hemoglobin Concent 34 g/dL (31-37) 33 g/dL (31-37) Red Cell Distribution Width 15.4 % (11.5-14.5) 15.0 % (11.5-14.5) Platelet Count 129 x10^3/uL (140-400) 155 x10^3/uL (140-400) Neutrophils (%) (Auto) 51 % (31-73) 53 % (31-73) Lymphocytes (%) (Auto) 36 % (24-48) 35 % (24-48) Monocytes (%) (Auto) 7 % (0-9) 7 % (0-9) Eosinophils (%) (Auto) 6 % (0-3) 5 % (0-3) Basophils (%) (Auto) 1 % (0-3) 1 % (0-3) Neutrophils # (Auto) 2.8 x10^3/uL (1.8-7.7) 2.8 x10^3/uL (1.8-7.7) Lymphocytes # (Auto) 2.0 x10^3/uL (1.0-4.8) 1.8 x10^3/uL (1.0-4.8) Monocytes # (Auto) 0.4 x10^3/uL (0.0-1.1) 0.4 x10^3/uL (0.0-1.1) Eosinophils # (Auto) 0.3 x10^3/uL (0.0-0.7) 0.2 x10^3/uL (0.0-0.7) Basophils # (Auto) 0.0 x10^3/uL (0.0-0.2) 0.0 x10^3/uL (0.0-0.2) Sodium Level 144 mmol/L (136-145) 143 mmol/L (136-145) Potassium Level 4.1 mmol/L (3.5-5.1) 4.0 mmol/L (3.5-5.1) Chloride Level 107 mmol/L (98-107) 107 mmol/L (98-107) Carbon Dioxide Level 31 mmol/L (21-32) 28 mmol/L (21-32) Anion Gap 6 (6-14) 8 (6-14) Blood Urea Nitrogen 9 mg/dL (8-26) 9 mg/dL (8-26) Creatinine 0.8 mg/dL (0.7-1.3) 0.6 mg/dL (0.7-1.3) Estimated GFR (Cockcroft-Gault) 98.9 137.9 BUN/Creatinine Ratio 11 (6-20) Glucose Level 85 mg/dL (70-99) 90 mg/dL (70-99) Calcium Level 8.4 mg/dL (8.5-10.1) 8.4 mg/dL (8.5-10.1) Total Bilirubin 0.2 mg/dL (0.2-1.0) Aspartate Amino Transf (AST/SGOT) 15 U/L (15-37) Alanine Aminotransferase (ALT/SGPT) 19 U/L (16-63) Alkaline Phosphatase 65 U/L (46-116) Total Protein 6.0 g/dL (6.4-8.2) Albumin 3.0 g/dL (3.4-5.0) Albumin/Globulin Ratio 1.0 (1.0-1.7) Prothrombin Time 12.3 SEC (11.7-14.0) Prothromb Time International Ratio 0.9 (0.8-1.1) Absolute Reticulocyte Count 0.046 x10^6/uL (0.020-0.120) Percent Reticulocyte Count 1.9 % (0.5-2.3) Immature Reticulocyte Fraction 0.61 (0.20-0.60) Laboratory Tests Test 02/01/21 16:40 02/02/21 04:30 Prothrombin Time 12.3 SEC (11.7-14.0) Prothromb Time International Ratio 0.9 (0.8-1.1) White Blood Count 5.2 x10^3/uL (4.0-11.0) Red Blood Count 2.41 x10^6/uL (4.30-5.70) Hemoglobin 7.5 g/dL (13.0-17.5) Hematocrit 22.7 % (39.0-53.0) Mean Corpuscular Volume 94 fL (79-100) Mean Corpuscular Hemoglobin 31 pg (25-35) Mean Corpuscular Hemoglobin Concent 33 g/dL (31-37) Red Cell Distribution Width 15.0 % (11.5-14.5) Platelet Count 155 x10^3/uL (140-400) Neutrophils (%) (Auto) 53 % (31-73) Lymphocytes (%) (Auto) 35 % (24-48) Monocytes (%) (Auto) 7 % (0-9) Eosinophils (%) (Auto) 5 % (0-3) Basophils (%) (Auto) 1 % (0-3) Neutrophils # (Auto) 2.8 x10^3/uL (1.8-7.7) Lymphocytes # (Auto) 1.8 x10^3/uL (1.0-4.8) Monocytes # (Auto) 0.4 x10^3/uL (0.0-1.1) Eosinophils # (Auto) 0.2 x10^3/uL (0.0-0.7) Basophils # (Auto) 0.0 x10^3/uL (0.0-0.2) Absolute Reticulocyte Count 0.046 x10^6/uL (0.020-0.120) Percent Reticulocyte Count 1.9 % (0.5-2.3) Immature Reticulocyte Fraction 0.61 (0.20-0.60) Sodium Level 143 mmol/L (136-145) Potassium Level 4.0 mmol/L (3.5-5.1) Chloride Level 107 mmol/L (98-107) Carbon Dioxide Level 28 mmol/L (21-32) Anion Gap 8 (6-14) Blood Urea Nitrogen 9 mg/dL (8-26) Creatinine 0.6 mg/dL (0.7-1.3) Estimated GFR (Cockcroft-Gault) 137.9 Glucose Level 90 mg/dL (70-99) Calcium Level 8.4 mg/dL (8.5-10.1) Microbiology 01/26/21 Urine Culture - Final, Complete Medications Current Medications Iohexol (Omnipaque 300 Mg/ml) 75 ml 1X ONCE IV Last administered on 01/26/21at 14:54; Start 01/26/21 at 14:30; Stop 01/26/21 at 14:31; Status DC Info (CONTRAST GIVEN -- Rx MONITORING) 1 each PRN DAILY PRN MC SEE COMMENTS; Start 01/26/21 at 14:30; Stop 01/28/21 at 14:29; Status DC Fentanyl Citrate (Fentanyl 2ml Vial) 50 mcg 1X ONCE IV Last administered on 01/26/21at 14:59; Start 01/26/21 at 14:30; Stop 01/26/21 at 14:31; Status DC Ondansetron HCl (Zofran) 4 mg 1X ONCE IV Last administered on 01/26/21at 14:59; Start 01/26/21 at 14:30; Stop 01/26/21 at 14:31; Status DC Insulin Human Lispro (HumaLOG) 0-7 UNITS TIDWMEALS SQ ; Start 01/27/21 at 08:00; Stop 01/29/21 at 11:43; Status DC Dextrose (Dextrose 50%-Water Syringe) 12.5 gm PRN Q15MIN PRN IV SEE COMMENTS; Start 01/26/21 at 18:15; Stop 01/29/21 at 11:43; Status DC Dextrose (Iv Dextrose 5%) 250 ml PRN Q15MIN PRN IV SEE COMMENTS; Start 01/26/21 at 18:15; Status UNV Ondansetron HCl (Zofran) 4 mg PRN Q6HRS PRN IVP NAUSEA/VOMITING Last administered on 01/28/21at 04:08; Start 01/26/21 at 18:15 Al Hydroxide/Mg Hydroxide (Mylanta Plus Xs) 30 ml PRN Q3HRS PRN PO HEARTBURN / GAS; Start 01/26/21 at 18:15 Calcium Carbonate/ Glycine (Tums) 500 mg PRN Q3HRS PRN PO UPSET STOMACH; Start 01/26/21 at 18:15 Zolpidem Tartrate (Ambien) 5 mg PRN QHS PRN PO INSOMNIA, MAY REPEAT IN 1HR Last administered on 01/27/21at 23:55; Start 01/26/21 at 18:15 Morphine Sulfate (Morphine Sulfate) 2 mg PRN Q1HR PRN IV MODERATE PAIN Last administered on 01/26/21at 19:27; Start 01/26/21 at 18:15; Stop 01/28/21 at 09:01; Status DC Acetaminophen/ Hydrocodone Bitart (Lortab 5/325) 1 tab PRN Q4HRS PRN PO MILD PAIN 1-3; Start 01/26/21 at 18:15; Stop 01/28/21 at 09:01; Status DC Acetaminophen/ Hydrocodone Bitart (Lortab 5/325) 2 tab PRN Q4HRS PRN PO MODERATE PAIN Last administered on 01/28/21at 04:39; Start 01/26/21 at 18:15; Stop 01/28/21 at 09:01; Status DC Hydromorphone HCl (Dilaudid) 2 mg PRN Q4HRS PRN PO MODERATE PAIN, 2ND CHOICE; Start 01/26/21 at 18:15; Stop 01/28/21 at 09:01; Status DC Hydromorphone HCl (Dilaudid) 4 mg PRN Q4HRS PRN PO SEVERE PAIN; Start 01/26/21 at 18:15; Stop 01/28/21 at 09:01; Status DC Acetaminophen (Tylenol) 650 mg PRN Q6HRS PRN PO Headaches, Temp > 101.5F Last administered on 01/30/21at 11:15; Start 01/26/21 at 18:15 Magnesium Hydroxide (Milk Of Magnesia) 2,400 mg PRN Q12HR PRN PO CONSTIPATION (1st Choice) Last administered on 01/27/21at 16:39; Start 01/26/21 at 18:15 Bisacodyl (Dulcolax Supp) 10 mg PRN DAILY PRN [place] CONSTIPATION; Start 01/26/21 at 18:15 Heparin Sodium (Porcine) (Heparin Sodium) 5,000 unit Q8HRS SQ Last administered on 02/02/21at 05:38; Start 01/26/21 at 22:00 Hydromorphone HCl (Dilaudid) 2 mg PRN Q4HRS PRN IVP SEVERE PAIN Last administered on 01/27/21at 09:37; Start 01/26/21 at 18:15; Stop 01/28/21 at 09:01; Status DC Lorazepam (Ativan Inj) 2 mg PRN Q4HRS PRN IVP ANXIETY / AGITATION Last administered on 02/02/21at 03:31; Start 01/26/21 at 18:15 Trazodone HCl (Desyrel) 75 mg HS PO Last administered on 02/01/21at 21:14; Start 01/26/21 at 21:30 Clonazepam (KlonoPIN) 1 mg TID PO Last administered on 01/27/21at 09:32; Start 01/26/21 at 21:30; Stop 01/27/21 at 13:36; Status DC Cephalexin HCl (Keflex) 500 mg TID PO Last administered on 01/30/21at 09:33; Start 01/27/21 at 09:00; Stop 01/30/21 at 13:51; Status DC Lactobacillus Rhamnosus (Culturelle) 1 cap BID PO Last administered on 02/02/21 09:25; Start 01/27/21 at 21:00 Clonazepam (KlonoPIN) 1 mg PRN TID PRN PO anxiety Last administered on 02/01/21 13:37; Start 01/27/21 at 13:45 Gadoterate Meglumine (Clariscan) 17 ml 1X ONCE IVP Last administered on 01/27/21 14:54; Start 01/27/21 at 13:45; Stop 01/27/21 at 13:49; Status DC Senna/Docusate Sodium (Senna Plus) 1 tab BID PO Last administered on 02/02/21 09:25; Start 01/27/21 at 21:00 Polyethylene Glycol (miraLAX PACKET) 17 gm DAILY PO Last administered on 02/02/21 09:25; Start 01/28/21 at 09:00 Bisacodyl (Dulcolax Tab) 10 mg PRN DAILY PRN PO CONSTIPATION (2nd Choice) Last administered on 01/27/21at 16:40; Start 01/27/21 at 16:15 Tamsulosin HCl (Flomax) 0.4 mg QHS PO Last administered on 02/01/21at 21:15; Start 01/27/21 at 21:00 Polyethylene Glycol (miraLAX PACKET) 17 gm DAILY PO ; Start 01/27/21 at 16:15; Status UNV Senna/Docusate Sodium (Senna Plus) 1 tab DAILY PO ; Start 01/27/21 at 16:15; Status UNV Gabapentin (Neurontin) 300 mg QID PO Last administered on 02/02/21 09:25; Start 01/28/21 at 09:30 Levothyroxine Sodium (Synthroid) 200 mcg DAILY06 PO Last administered on 02/02/21at 05:35; Start 01/28/21 at 09:30 Methadone HCl (Dolophine) 10 mg TID PO Last administered on 02/02/21 09:25; Start 01/28/21 at 09:00 Daptomycin 450 mg/ Sodium Chloride 50 ml @ 100 mls/hr Q24H IV Last administered on 02/01/21at 12:19; Start 01/28/21 at 12:30 Meropenem 500 mg/ Sodium Chloride 50 ml @ 100 mls/hr Q8HRS IV Last administered on 01/30/21at 06:04; Start 01/28/21 at 14:00; Stop 01/30/21 at 15:56; Status DC Lidocaine HCl (Buffered Lidocaine 1%) 3 ml STK-MED ONCE .ROUTE ; Start 01/28/21 at 14:32; Stop 01/28/21 at 14:33; Status DC Lidocaine HCl (Buffered Lidocaine 1%) 3 ml 1X ONCE INJ Last administered on 01/28/21at 15:22; Start 01/28/21 at 15:15; Stop 01/28/21 at 15:16; Status DC Cyanocobalamin (Vitamin B-12 Inj) 1,000 mcg 1X ONCE IM Last administered on 01/29/21at 09:28; Start 01/29/21 at 07:30; Stop 01/29/21 at 07:31; Status DC Meropenem 500 mg/ Sodium Chloride 50 ml @ 100 mls/hr Q6HRS IV Last administered on 02/02/21at 05:35; Start 01/30/21 at 18:00 Micafungin Sodium 100 mg/Dextrose 100 ml @ 100 mls/hr Q24H IV Last administered on 02/01/21at 17:17; Start 01/30/21 at 17:00 Pantoprazole Sodium (PROTONIX VIAL for IV PUSH) 40 mg DAILYAC IVP Last administered on 02/02/21at 09:25; Start 02/02/21 at 07:30 Active Scripts Active Percocet 5-325 Mg Tablet (Oxycodone/Acetaminophen) 1 Each Tablet 1 Tab PO PRN Q6HRS PRN 5 Days Metformin Hcl Er (Metformin Hcl) 500 Mg Tab.er.24h 500 Mg PO DAILYWBKFT 30 Days Reported Klonopin (Clonazepam) 1 Mg Tablet 1 Tab PO TID Trazodone Hcl 100 Mg Tablet 75 Mg PO HS Keflex (Cephalexin) 750 Mg Capsule 500 Mg PO TID Ferrous Sulfate 325 Mg Tablet 1 Tab PO BID Cyclobenzaprine Hcl 10 Mg Tablet 10 Mg PO HS Nifedipine Er (Nifedipine) 30 Mg Tablet.er 30 Mg PO HS Atenolol 50 Mg Tablet 50 Mg PO DAILY Losartan Potassium 100 Mg Tablet 100 Mg PO DAILY16 Colace (Docusate Sodium) 100 Mg Capsule 100 Mg PO DAILY Gabapentin 600 Mg Tablet 1,800 Mg PO BID Levothyroxine Sodium 200 Mcg Tablet 200 Mcg PO DAILYAC Hydrochlorothiazide Tablet (Hydrochlorothiazide) 25 Mg Tablet 50 Mg PO DAILY Vitals/I & O Vital Sign - Last 24 Hours 02/01/21 02/01/21 02/01/21 02/01/21 10:21 14:32 19:00 20:00 Temp 99.2 97.5 98.7 99.2 97.5 98.7 Pulse 109 91 89 Resp 18 18 18 B/P (MAP) 143/94 (110) 135/74 (94) 145/76 (99) Pulse Ox 94 95 93 O2 Delivery Room Air Room Air Room Air Room Air 02/01/21 02/02/21 02/02/21 02/02/21 23:00 03:00 06:58 07:38 Temp 98.6 98.1 98.6 98.1 Pulse 89 91 79 Resp 18 18 18 B/P (MAP) 147/81 (103) 147/82 (103) 143/80 (101) Pulse Ox 94 96 91 O2 Delivery Room Air Room Air Room Air Room Air Intake and Output 02/01/21 02/01/21 02/02/21 14:59 22:59 06:59 Intake Total 100 ml 400 ml Output Total 600 ml Balance 100 ml -200 ml Justifications for Admission Other Justification Lumbar spinal stenosis concerning for cauda equina syndrome RENETTA HOWARD MD Feb 02, 2021 10:20
[2021-02-02 10:34] VITALS: BP 172/101
--- NOTE | 2021-02-02 10:44 | PDOC ---
PROGRESS NOTES Date of Service: DATE: 02/02/21 TIME: 10:43 Chief Complaint Chief Complaint impression L2-L5 spinal canal stenosis with urinary retention - retention more likely medication side effect. Cervical spine stenosis History osteomyelitis DM2 - sliding scale Normocytic anemia - s/p transfusion DENIES HX Colonoscopy but is poor historian Thrombocytopenia - hematology following Hypothyroidism Chronic pain Right total knee replacement History of femur fracture October 2020 osteomyelitis T11-12 - MRI changes in cervical and thoracic spine likely needs IV treatment Complete to near complete resolution of previously demonstrated epidural enhancement consistent with abscess throughout the and majority of the thoracic levels, consistent with interval treatment response. There is a new small enhancing ventral epidural collection measuring 2 mm in thickness at T1-T2 which is likely infectious given extensive adjacent marrow edema involving the posterior elements and surrounding soft tissues at C7-T1. There are new small peripherally enhancing fluid collections posterior to the facet joints at this level and within the left dorsal central canal which may be due to superinfected synovial cysts or abscesses. dilation of a segment of colon measuring up to 6.5 cm. / uncertain clinical significance, obstruction or focal ileus could have this appearance. Plan: Will resume his current antibiotic treatment Hemoglobin & hematocrit 8.8 and 25.6 respectively (11/16/2020); hemoglobin 7.1 and hematocrit 22.9 on admission. Will continue to monitor and transfuse as needed. Resume home medications FEN - Cardiac diet PPX - Heparin FULL CODE Dispo - inpatient for above HEME consult Continue dapto and meropenem , Cont Micafungin GI consult guiac stools CEA 37 min pt exam, chart review, > 50% of time spent with exam, chart review, pt care coordination Advance Care Planning: Total time spent [id number] with patient 16 minutes in discussion with goals of care, comfort care, end-of-life care, pain management, code status; patient names his (Radha Padilla) as surrogate decision-maker. History of Present Illness History of Present Illness impression Mr Byrnes is a 61-year-old male PMHx hypothyroidism, chronic pain, hernia, back surgery, right total knee replacement, and history of femur fracture and October 2020 osteomyelitis s/p cervical, thoracic, and lumbar epidural abscess drainage who presents to the ED with complaints of urinary retention. Patient states he has not urinated in the past 2 days prior to admit with associated bladder distention. He was recently admitted on 11/02/2020 for spinal epidural abscess, paraspinal cervical abscess, and osteomyelitis. He states he is currently on an antibiotic 3 times daily, but cannot member the name of this antibiotic. CT lumbar spine obtained in the ED showed redemonstrated changes of discitis osteomyelitis at L3-L4 with at least moderate spinal canal stenosis at that level L2-L5. Coello catheter was placed in the ED with reportedly 1000 mL urine output. Patient states he feels significantly better after having Coello placed, but is also reports chronic right knee pain. He has had right knee pain over t his past 3 years since total knee replacement, but states his pain is worsened over the past 3 days causing him difficulty moving. States his knee is slightly more mobile after pain medication he received in the ED. Neurosurgery was consulted in the ED and requesting admission. Admitted patient for further medical management. 01/27: Afebrile. Discussed with neurosurgery and ID his recent MRI is actually improved. He discloses to me that prior to his complicated hospital stay he had actually been weaned down from 150 mg daily of methadone for chronic pain to 10 mg 3 times daily and has had trouble having anyone to prescribe methadone for him. He continues to ask for pain medication regularly. Discussed complications of urinary retention related to chronic opioid therapy. 01/28: Afebrile. Platelets still low normal still low. Coello out today start on methadone per PMR. MRI reviewed with ID and neurosurgery, given MRI findings and thoracic and cervical areas changed likely persistent infection. Voiding trial today. PICC inserted 01/29: Afebrile overnight. Hemoglobin dropped below 7. Pain better controlled on methadone. No residual on PVR. 1u PRBC with good effect 01/30: Afebrile. Hb dropped to 6.8 again. 11 unit of blood transfusing. He actually feels better on the methadone is a little bit stronger. No more urinary retention. Afebrile. Hb 7.9 posttransfusion. Platelets up to 108. Feeling improved. - L2-L5 spinal canal stenosis with urinary retention - retention more likely medication side effect. Cervical spine stenosis History osteomyelitis DM2 - sliding scale Normocytic anemia - s/p transfusion Thrombocytopenia - hematology following Hypothyroidism FEN - Cardiac diet PPX - Heparin FULL CODE Dispo - inpatient for above HEME consult Continue dapto and meropenem , Cont Micafungin 37 min pt exam, chart review, > 50% of time spent with exam, chart review, pt care coordination Vitals Vitals Vital Signs Date Time Temp Pulse Resp B/P (MAP) Pulse Ox O2 Delivery O2 Flow Rate FiO2 02/02/21 10:34 98.0 120 18 172/101 (124) 96 Room Air 98.0 Physical Exam Physical Exam GENERAL: alert awake, sitting in bed appears comfortable HEENT: Normal conjunctivae. Oral cavity clear NECK: Supple. No JVP, no lymphadenopathy. LUNGS: Clear. HEART: S1, S2 regular. ABDOMEN: Soft, nontender. EXTREMITIES: No edema or cyanosis. Right knee wo redness/warmth/swelling. SKIN: No signs of gen rash. Groin yeast some better,dry flaky skin NEUROLOGIC: Alert, awake, and appropriate. MSK scar over cervical spine, lumbar spine healed some paraspinal pain in the low back, no dec in range of motion at neck RUE-PICC (01/28) clean General: Alert, Oriented X3, Cooperative, No acute distress Heart: Regular rate Lungs: Clear Abdomen: Normal bowel sounds, Soft, No tenderness Extremities: No clubbing, No cyanosis Labs LABS Laboratory Tests Test 02/01/21 16:40 02/02/21 04:30 Prothrombin Time 12.3 SEC (11.7-14.0) Prothromb Time International Ratio 0.9 (0.8-1.1) White Blood Count 5.2 x10^3/uL (4.0-11.0) Red Blood Count 2.41 x10^6/uL (4.30-5.70) Hemoglobin 7.5 g/dL (13.0-17.5) Hematocrit 22.7 % (39.0-53.0) Mean Corpuscular Volume 94 fL (79-100) Mean Corpuscular Hemoglobin 31 pg (25-35) Mean Corpuscular Hemoglobin Concent 33 g/dL (31-37) Red Cell Distribution Width 15.0 % (11.5-14.5) Platelet Count 155 x10^3/uL (140-400) Neutrophils (%) (Auto) 53 % (31-73) Lymphocytes (%) (Auto) 35 % (24-48) Monocytes (%) (Auto) 7 % (0-9) Eosinophils (%) (Auto) 5 % (0-3) Basophils (%) (Auto) 1 % (0-3) Neutrophils # (Auto) 2.8 x10^3/uL (1.8-7.7) Lymphocytes # (Auto) 1.8 x10^3/uL (1.0-4.8) Monocytes # (Auto) 0.4 x10^3/uL (0.0-1.1) Eosinophils # (Auto) 0.2 x10^3/uL (0.0-0.7) Basophils # (Auto) 0.0 x10^3/uL (0.0-0.2) Absolute Reticulocyte Count 0.046 x10^6/uL (0.020-0.120) Percent Reticulocyte Count 1.9 % (0.5-2.3) Immature Reticulocyte Fraction 0.61 (0.20-0.60) Sodium Level 143 mmol/L (136-145) Potassium Level 4.0 mmol/L (3.5-5.1) Chloride Level 107 mmol/L (98-107) Carbon Dioxide Level 28 mmol/L (21-32) Anion Gap 8 (6-14) Blood Urea Nitrogen 9 mg/dL (8-26) Creatinine 0.6 mg/dL (0.7-1.3) Estimated GFR (Cockcroft-Gault) 137.9 Glucose Level 90 mg/dL (70-99) Calcium Level 8.4 mg/dL (8.5-10.1) Assessment and Plan Assessmemt and Plan Problems Medical Problems: (1) Urinary retention Status: Acute Comment Review of Relevant I have reviewed the following items almas (where applicable) has been applied. Labs Laboratory Tests Test 02/01/21 06:25 02/01/21 16:40 02/02/21 04:30 White Blood Count 5.6 x10^3/uL (4.0-11.0) 5.2 x10^3/uL (4.0-11.0) Red Blood Count 2.39 x10^6/uL (4.30-5.70) 2.41 x10^6/uL (4.30-5.70) Hemoglobin 7.6 g/dL (13.0-17.5) 7.5 g/dL (13.0-17.5) Hematocrit 22.4 % (39.0-53.0) 22.7 % (39.0-53.0) Mean Corpuscular Volume 94 fL (79-100) 94 fL (79-100) Mean Corpuscular Hemoglobin 32 pg (25-35) 31 pg (25-35) Mean Corpuscular Hemoglobin Concent 34 g/dL (31-37) 33 g/dL (31-37) Red Cell Distribution Width 15.4 % (11.5-14.5) 15.0 % (11.5-14.5) Platelet Count 129 x10^3/uL (140-400) 155 x10^3/uL (140-400) Neutrophils (%) (Auto) 51 % (31-73) 53 % (31-73) Lymphocytes (%) (Auto) 36 % (24-48) 35 % (24-48) Monocytes (%) (Auto) 7 % (0-9) 7 % (0-9) Eosinophils (%) (Auto) 6 % (0-3) 5 % (0-3) Basophils (%) (Auto) 1 % (0-3) 1 % (0-3) Neutrophils # (Auto) 2.8 x10^3/uL (1.8-7.7) 2.8 x10^3/uL (1.8-7.7) Lymphocytes # (Auto) 2.0 x10^3/uL (1.0-4.8) 1.8 x10^3/uL (1.0-4.8) Monocytes # (Auto) 0.4 x10^3/uL (0.0-1.1) 0.4 x10^3/uL (0.0-1.1) Eosinophils # (Auto) 0.3 x10^3/uL (0.0-0.7) 0.2 x10^3/uL (0.0-0.7) Basophils # (Auto) 0.0 x10^3/uL (0.0-0.2) 0.0 x10^3/uL (0.0-0.2) Sodium Level 144 mmol/L (136-145) 143 mmol/L (136-145) Potassium Level 4.1 mmol/L (3.5-5.1) 4.0 mmol/L (3.5-5.1) Chloride Level 107 mmol/L (98-107) 107 mmol/L (98-107) Carbon Dioxide Level 31 mmol/L (21-32) 28 mmol/L (21-32) Anion Gap 6 (6-14) 8 (6-14) Blood Urea Nitrogen 9 mg/dL (8-26) 9 mg/dL (8-26) Creatinine 0.8 mg/dL (0.7-1.3) 0.6 mg/dL (0.7-1.3) Estimated GFR (Cockcroft-Gault) 98.9 137.9 BUN/Creatinine Ratio 11 (6-20) Glucose Level 85 mg/dL (70-99) 90 mg/dL (70-99) Calcium Level 8.4 mg/dL (8.5-10.1) 8.4 mg/dL (8.5-10.1) Total Bilirubin 0.2 mg/dL (0.2-1.0) Aspartate Amino Transf (AST/SGOT) 15 U/L (15-37) Alanine Aminotransferase (ALT/SGPT) 19 U/L (16-63) Alkaline Phosphatase 65 U/L (46-116) Total Protein 6.0 g/dL (6.4-8.2) Albumin 3.0 g/dL (3.4-5.0) Albumin/Globulin Ratio 1.0 (1.0-1.7) Prothrombin Time 12.3 SEC (11.7-14.0) Prothromb Time International Ratio 0.9 (0.8-1.1) Absolute Reticulocyte Count 0.046 x10^6/uL (0.020-0.120) Percent Reticulocyte Count 1.9 % (0.5-2.3) Immature Reticulocyte Fraction 0.61 (0.20-0.60) Laboratory Tests Test 02/01/21 16:40 02/02/21 04:30 Prothrombin Time 12.3 SEC (11.7-14.0) Prothromb Time International Ratio 0.9 (0.8-1.1) White Blood Count 5.2 x10^3/uL (4.0-11.0) Red Blood Count 2.41 x10^6/uL (4.30-5.70) Hemoglobin 7.5 g/dL (13.0-17.5) Hematocrit 22.7 % (39.0-53.0) Mean Corpuscular Volume 94 fL (79-100) Mean Corpuscular Hemoglobin 31 pg (25-35) Mean Corpuscular Hemoglobin Concent 33 g/dL (31-37) Red Cell Distribution Width 15.0 % (11.5-14.5) Platelet Count 155 x10^3/uL (140-400) Neutrophils (%) (Auto) 53 % (31-73) Lymphocytes (%) (Auto) 35 % (24-48) Monocytes (%) (Auto) 7 % (0-9) Eosinophils (%) (Auto) 5 % (0-3) Basophils (%) (Auto) 1 % (0-3) Neutrophils # (Auto) 2.8 x10^3/uL (1.8-7.7) Lymphocytes # (Auto) 1.8 x10^3/uL (1.0-4.8) Monocytes # (Auto) 0.4 x10^3/uL (0.0-1.1) Eosinophils # (Auto) 0.2 x10^3/uL (0.0-0.7) Basophils # (Auto) 0.0 x10^3/uL (0.0-0.2) Absolute Reticulocyte Count 0.046 x10^6/uL (0.020-0.120) Percent Reticulocyte Count 1.9 % (0.5-2.3) Immature Reticulocyte Fraction 0.61 (0.20-0.60) Sodium Level 143 mmol/L (136-145) Potassium Level 4.0 mmol/L (3.5-5.1) Chloride Level 107 mmol/L (98-107) Carbon Dioxide Level 28 mmol/L (21-32) Anion Gap 8 (6-14) Blood Urea Nitrogen 9 mg/dL (8-26) Creatinine 0.6 mg/dL (0.7-1.3) Estimated GFR (Cockcroft-Gault) 137.9 Glucose Level 90 mg/dL (70-99) Calcium Level 8.4 mg/dL (8.5-10.1) Microbiology 01/26/21 Urine Culture - Final, Complete Medications Current Medications Iohexol (Omnipaque 300 Mg/ml) 75 ml 1X ONCE IV Last administered on 01/26/21at 14:54; Start 01/26/21 at 14:30; Stop 01/26/21 at 14:31; Status DC Info (CONTRAST GIVEN -- Rx MONITORING) 1 each PRN DAILY PRN MC SEE COMMENTS; Start 01/26/21 at 14:30; Stop 01/28/21 at 14:29; Status DC Fentanyl Citrate (Fentanyl 2ml Vial) 50 mcg 1X ONCE IV Last administered on 01/26/21at 14:59; Start 01/26/21 at 14:30; Stop 01/26/21 at 14:31; Status DC Ondansetron HCl (Zofran) 4 mg 1X ONCE IV Last administered on 01/26/21at 14:59; Start 01/26/21 at 14:30; Stop 01/26/21 at 14:31; Status DC Insulin Human Lispro (HumaLOG) 0-7 UNITS TIDWMEALS SQ ; Start 01/27/21 at 08:00; Stop 01/29/21 at 11:43; Status DC Dextrose (Dextrose 50%-Water Syringe) 12.5 gm PRN Q15MIN PRN IV SEE COMMENTS; Start 01/26/21 at 18:15; Stop 01/29/21 at 11:43; Status DC Dextrose (Iv Dextrose 5%) 250 ml PRN Q15MIN PRN IV SEE COMMENTS; Start 01/26/21 at 18:15; Status UNV Ondansetron HCl (Zofran) 4 mg PRN Q6HRS PRN IVP NAUSEA/VOMITING Last administered on 01/28/21at 04:08; Start 01/26/21 at 18:15 Al Hydroxide/Mg Hydroxide (Mylanta Plus Xs) 30 ml PRN Q3HRS PRN PO HEARTBURN / GAS; Start 01/26/21 at 18:15 Calcium Carbonate/ Glycine (Tums) 500 mg PRN Q3HRS PRN PO UPSET STOMACH; Start 01/26/21 at 18:15 Zolpidem Tartrate (Ambien) 5 mg PRN QHS PRN PO INSOMNIA, MAY REPEAT IN 1HR Last administered on 01/27/21at 23:55; Start 01/26/21 at 18:15 Morphine Sulfate (Morphine Sulfate) 2 mg PRN Q1HR PRN IV MODERATE PAIN Last administered on 01/26/21at 19:27; Start 01/26/21 at 18:15; Stop 01/28/21 at 09:01; Status DC Acetaminophen/ Hydrocodone Bitart (Lortab 5/325) 1 tab PRN Q4HRS PRN PO MILD PAIN 1-3; Start 01/26/21 at 18:15; Stop 01/28/21 at 09:01; Status DC Acetaminophen/ Hydrocodone Bitart (Lortab 5/325) 2 tab PRN Q4HRS PRN PO MODERATE PAIN Last administered on 01/28/21at 04:39; Start 01/26/21 at 18:15; Stop 01/28/21 at 09:01; Status DC Hydromorphone HCl (Dilaudid) 2 mg PRN Q4HRS PRN PO MODERATE PAIN, 2ND CHOICE; Start 01/26/21 at 18:15; Stop 01/28/21 at 09:01; Status DC Hydromorphone HCl (Dilaudid) 4 mg PRN Q4HRS PRN PO SEVERE PAIN; Start 01/26/21 at 18:15; Stop 01/28/21 at 09:01; Status DC Acetaminophen (Tylenol) 650 mg PRN Q6HRS PRN PO Headaches, Temp > 101.5F Last administered on 01/30/21at 11:15; Start 01/26/21 at 18:15 Magnesium Hydroxide (Milk Of Magnesia) 2,400 mg PRN Q12HR PRN PO CONSTIPATION (1st Choice) Last administered on 01/27/21at 16:39; Start 01/26/21 at 18:15 Bisacodyl (Dulcolax Supp) 10 mg PRN DAILY PRN ID CONSTIPATION; Start 01/26/21 at 18:15 Heparin Sodium (Porcine) (Heparin Sodium) 5,000 unit Q8HRS SQ Last administered on 02/02/21at 05:38; Start 01/26/21 at 22:00 Hydromorphone HCl (Dilaudid) 2 mg PRN Q4HRS PRN IVP SEVERE PAIN Last administered on 01/27/21at 09:37; Start 01/26/21 at 18:15; Stop 01/28/21 at 09:01; Status DC Lorazepam (Ativan Inj) 2 mg PRN Q4HRS PRN IVP ANXIETY / AGITATION Last administ ered on 02/02/21 03:31; Start 01/26/21 at 18:15 Trazodone HCl (Desyrel) 75 mg HS PO Last administered on 02/01/21at 21:14; Star t 01/26/21 at 21:30 Clonazepam (KlonoPIN) 1 mg TID PO Last administered on 01/27/21at 09:32; Start 01/26/21 at 21:30; Stop 01/27/21 at 13:36; Status DC Cephalexin HCl (Keflex) 500 mg TID PO Last administered on 01/30/21at 09:33; Start 01/27/21 at 09:00; Stop 01/30/21 at 13:51; Status DC Lactobacillus Rhamnosus (Culturelle) 1 cap BID PO Last administered on 02/02/21 09:25; Start 01/27/21 at 21:00 Clonazepam (KlonoPIN) 1 mg PRN TID PRN PO anxiety Last administered on 02/01/21at 13:37; Start 01/27/21 at 13:45 Gadoterate Meglumine (Clariscan) 17 ml 1X ONCE IVP Last administered on 01/27/21at 14:54; Start 01/27/21 at 13:45; Stop 01/27/21 at 13:49; Status DC Senna/Docusate Sodium (Senna Plus) 1 tab BID PO Last administered on 02/02/21at 09:25; Start 01/27/21 at 21:00 Polyethylene Glycol (miraLAX PACKET) 17 gm DAILY PO Last administered on 02/02/21at 09:25; Start 01/28/21 at 09:00 Bisacodyl (Dulcolax Tab) 10 mg PRN DAILY PRN PO CONSTIPATION (2nd Choice) Last administered on 01/27/21at 16:40; Start 01/27/21 at 16:15 Tamsulosin HCl (Flomax) 0.4 mg QHS PO Last administered on 02/01/21at 21:15; Start 01/27/21 at 21:00 Polyethylene Glycol (miraLAX PACKET) 17 gm DAILY PO ; Start 01/27/21 at 16:15; Status UNV Senna/Docusate Sodium (Senna Plus) 1 tab DAILY PO ; Start 01/27/21 at 16:15; Status UNV Gabapentin (Neurontin) 300 mg QID PO Last administered on 02/02/21at 09:25; Start 01/28/21 at 09:30 Levothyroxine Sodium (Synthroid) 200 mcg DAILY06 PO Last administered on 02/02/21at 05:35; Start 01/28/21 at 09:30 Methadone HCl (Dolophine) 10 mg TID PO Last administered on 02/02/21at 09:25; Start 01/28/21 at 09:00 Daptomycin 450 mg/ Sodium Chloride 50 ml @ 100 mls/hr Q24H IV Last administered on 02/01/21at 12:19; Start 01/28/21 at 12:30 Meropenem 500 mg/ Sodium Chloride 50 ml @ 100 mls/hr Q8HRS IV Last administered on 01/30/21at 06:04; Start 01/28/21 at 14:00; Stop 01/30/21 at 15:56; Status DC Lidocaine HCl (Buffered Lidocaine 1%) 3 ml STK-MED ONCE .ROUTE ; Start 01/28/21 at 14:32; Stop 01/28/21 at 14:33; Status DC Lidocaine HCl (Buffered Lidocaine 1%) 3 ml 1X ONCE INJ Last administered on 01/28/21at 15:22; Start 01/28/21 at 15:15; Stop 01/28/21 at 15:16; Status DC Cyanocobalamin (Vitamin B-12 Inj) 1,000 mcg 1X ONCE IM Last administered on 01/29/21at 09:28; Start 01/29/21 at 07:30; Stop 01/29/21 at 07:31; Status DC Meropenem 500 mg/ Sodium Chloride 50 ml @ 100 mls/hr Q6HRS IV Last administered on 02/02/21at 05:35; Start 01/30/21 at 18:00 Micafungin Sodium 100 mg/Dextrose 100 ml @ 100 mls/hr Q24H IV Last administered on 02/01/21at 17:17; Start 01/30/21 at 17:00 Pantoprazole Sodium (PROTONIX VIAL for IV PUSH) 40 mg DAILYAC IVP Last administered on 02/02/21at 09:25; Start 02/02/21 at 07:30; Stop 02/02/21 at 10:20; Status DC Pantoprazole Sodium (Protonix) 40 mg DAILYAC PO ; Start 02/03/21 at 07:30 Active Scripts Active Percocet 5-325 Mg Tablet (Oxycodone/Acetaminophen) 1 Each Tablet 1 Tab PO PRN Q6HRS PRN 5 Days Metformin Hcl Er (Metformin Hcl) 500 Mg Tab.er.24h 500 Mg PO DAILYWBKFT 30 Days Reported Klonopin (Clonazepam) 1 Mg Tablet 1 Tab PO TID Trazodone Hcl 100 Mg Tablet 75 Mg PO HS Keflex (Cephalexin) 750 Mg Capsule 500 Mg PO TID Ferrous Sulfate 325 Mg Tablet 1 Tab PO BID Cyclobenzaprine Hcl 10 Mg Tablet 10 Mg PO HS Nifedipine Er (Nifedipine) 30 Mg Tablet.er 30 Mg PO HS Atenolol 50 Mg Tablet 50 Mg PO DAILY Losartan Potassium 100 Mg Tablet 100 Mg PO DAILY16 Colace (Docusate Sodium) 100 Mg Capsule 100 Mg PO DAILY Gabapentin 600 Mg Tablet 1,800 Mg PO BID Levothyroxine Sodium 200 Mcg Tablet 200 Mcg PO DAILYAC Hydrochlorothiazide Tablet (Hydrochlorothiazide) 25 Mg Tablet 50 Mg PO DAILY Vitals/I & O Vital Sign - Last 24 Hours 02/01/21 02/01/21 02/01/21 02/01/21 14:32 19:00 20:00 23:00 Temp 97.5 98.7 97.5 98.7 Pulse 91 89 89 Resp 18 18 18 B/P (MAP) 135/74 (94) 145/76 (99) 147/81 (103) Pulse Ox 95 93 94 O2 Delivery Room Air Room Air Room Air Room Air 02/02/21 02/02/21 02/02/21 02/02/21 03:00 06:58 07:38 10:34 Temp 98.6 98.1 98.0 98.6 98.1 98.0 Pulse 91 79 120 Resp 18 18 18 B/P (MAP) 147/82 (103) 143/80 (101) 172/101 (124) Pulse Ox 96 91 96 O2 Delivery Room Air Room Air Room Air Room Air Intake and Output 02/01/21 02/01/21 02/02/21 15:00 23:00 07:00 Intake Total 300 ml 200 ml Output Total 600 ml Balance -300 ml 200 ml Justicifation of Admission Dx: Justifications for Admission: Justification of Admission Dx: Yes KEITH CHIN MD Feb 02, 2021 10:44
[2021-02-02] MEDS: clonazePAM 0.5 MG TABLET PO PRN (11:53)
[2021-02-02] MEDS: DAPTOmycin (GENERIC) IVPB 450 MG in IV NORMAL SALINE 50ML 50 ML IV SCH (13:11)
[2021-02-02 14:31] VITALS: BP 123/83
--- NOTE | 2021-02-02 15:30 | NUR ---
SS following up with discharge planning. SS reviewed pt chart and discussed with pt RN. Pt is currently on room air. Pt on IV Meropenem, IV Daptomycin, and IV Micafungin. Pt and pt's spouse reporting that they cannot afford co-pay days for [facility] unit. Discharge plan is currently to home with home healthcare and IV Infusions. Pt accepted on services with [facility], ; fax [phone]. SS will continue to follow for discharge planning.
[2021-02-02] MEDS: MICAFUNGIN 100 MG in IV DEXTROSE 5% 100ML 100 ML IV SCH (17:09)
[2021-02-02 19:00] VITALS: BP 168/88
[2021-02-02] MEDS: TAMSULOSIN 0.4 MG CAP.ER.24H. PO SCH (20:39)
[2021-02-02] MEDS: traZODone 50 MG TABLET. PO SCH (20:39)
[2021-02-02 23:00] VITALS: BP 135/78
--- NOTE | 2021-02-02 23:41 | RAD ---
Ultrasound of the abdomen 02/02/2021 CLINICAL HISTORY: Abdominal pain. TECHNIQUE: A real-time ultrasound examination of the abdomen was performed. Multiple images were obta ined. FINDINGS: Comparison is made to a CT scan of the abdomen dated 11/11/2020. The gallbladder is well-distended. Sludge is seen within the dependent portion of the gallbladder. Th e gallbladder wall thickness is within normal limits. No pericholecystic fluid is seen. The common bi le duct measures 6 mm in diameter which is within normal limits. The liver, spleen, visualized portio ns of pancreas and kidneys are within normal limits. The abdominal aorta is not well-visualized due t o overlying bowel gas. The inferior vena cava is not well-visualized due to overlying bowel gas. No f ree fluid is seen. IMPRESSION: Sludge is seen within the dependent portions of the gallbladder. Otherwise negative study . Electronically signed by: Stephane Munoz MD (02/02/2021 11:39 PM) [id number]
[2021-02-03] MEDS: clonazePAM 0.5 MG TABLET PO PRN ×2 (01:27→20:39)
[2021-02-03 02:44] VITALS: BP 132/68
[2021-02-03] MEDS: MEROPENEM 500 MG in IV NORMAL SALINE 50ML 50 ML IV SCH ×4 (05:33→23:44)
[2021-02-03] MEDS: LEVOTHYROXINE 100 MCG TABLET PO SCH (05:33)
[2021-02-03] MEDS: PANTOPRAZOLE 40 MG TABLET.DR. PO SCH (05:38)
[2021-02-03] MEDS: HEPARIN for SUB-Q USE 5,000 UNIT/ML VIAL. SQ SCH ×3 (05:44→22:05)
[2021-02-03 07:00] VITALS: BP 147/80
[2021-02-03] MEDS: GABAPENTIN 300 MG CAPSULE. PO SCH ×4 (08:42→20:35)
[2021-02-03] MEDS: METHADONE 10 MG TABLET. PO SCH ×3 (08:42→20:35)
[2021-02-03] MEDS: POLYETHYLENE GLYCOL 3350 17 GM PACKET. PO SCH (08:42)
[2021-02-03] MEDS: SENNOSIDES/DOCUSATE 8.6/50MG TABLET. PO SCH ×2 (08:42→20:35)
[2021-02-03] MEDS: LACTOBACILLUS RHAMNOSUS GG 1 CAPSULE. PO SCH ×2 (08:42→20:35)
--- NOTE | 2021-02-03 09:25 | PDOC ---
Infectious Disease Note Subjective: Subjective Patient complains of back pain which comes and goes Ambulates with walker Denies difficulty urinating. No loss of bowel/bladder control Denies fever/chills/N/V/D/rash Tolerating po intake well Vital Signs: Vital Signs Vital Signs Date Time Temp Pulse Resp B/P (MAP) Pulse Ox O2 Delivery O2 Flow Rate FiO2 02/03/21 08:00 Room Air 02/03/21 07:00 98.4 83 18 147/80 (102) 94 98.4 Physical Exam: PHYSICAL EXAM GENERAL: alert awake, sitting in bed appears comfortable HEENT: Normal conjunctivae. Oral cavity clear NECK: Supple. No JVP, no lymphadenopathy. LUNGS: Clear. HEART: S1, S2 regular. ABDOMEN: Soft, nontender. EXTREMITIES: No edema or cyanosis. Right knee wo redness/warmth/swelling. SKIN: No signs of gen rash. Groin yeast some better,dry flaky skin NEUROLOGIC: Alert, awake, and appropriate. MSK scar over cervical spine, lumbar spine healed some paraspinal pain in the low back, no dec in range of motion at neck RUE-PICC (01/28) clean Medications: Inpatient Meds: Medications reviewed. Objective: Assessment: Low Back pain, most likely is musculoskeletal. Abnormal MRI possible reactivation or new infection Urinary retention. UC 20K JATIN DUBLINIENSIS History of MSSA bacteremia and extensive spinal infection in October 2020. Pt was on keflex for a couple of months Hypertension. Anemia s/p PRBCs Yeast in groin Thrombocytopenia Elevated serum kappa and lambda Abn KUB Plan: Plan of Care C spine and T spine MRI noted, with new epidural and other collection, ?? post surgery changes, ? new infection or reactivation of infection pt clinically does not have any signs of infection of infection, sed rate 31 and crp not very high 2.1 no other clinical evidence for infection Dr. Bowie concerned about infection with the new changes so decision made to treat with a new full course of IV antibiotics. The area and the amount of fluid collection is not enough for us to be able to obtain the sample for cultures Continue dapto and meropenem , Cont Micafungin KUB noted, Monitor labs/temp Pain management per primary Hematology consulted by primary Fecal occult blood pending Pt and OT as tolerated Discussed with nursing staff CORNELIA CAMARILLO MD Feb 03, 2021 09:25
--- NOTE | 2021-02-03 09:44 | PDOC ---
PROGRESS NOTES Date of Service: DATE: 02/03/21 TIME: 09:43 Chief Complaint Chief Complaint impression L2-L5 spinal canal stenosis with urinary retention - retention more likely medication side effect. Cervical spine stenosis History osteomyelitis DM2 - sliding scale Normocytic anemia - s/p transfusion DENIES HX Colonoscopy but is poor historian Thrombocytopenia - hematology following Hypothyroidism Chronic pain Right total knee replacement History of femur fracture October 2020 osteomyelitis T11-12 - MRI changes in cervical and thoracic spine likely needs IV treatment Complete to near complete resolution of previously demonstrated epidural enhancement consistent with abscess throughout the and majority of the thoracic levels, consistent with interval treatment response. There is a new small enhancing ventral epidural collection measuring 2 mm in thickness at T1-T2 which is likely infectious given extensive adjacent marrow edema involving the posterior elements and surrounding soft tissues at C7-T1. There are new small peripherally enhancing fluid collections posterior to the facet joints at this level and within the left dorsal central canal which may be due to superinfected synovial cysts or abscesses. dilation of a segment of colon measuring up to 6.5 cm. / uncertain clinical significance, obstruction or focal ileus could have this appearance. Plan: Will resume his current antibiotic treatment Hemoglobin & hematocrit 8.8 and 25.6 respectively (11/16/2020); hemoglobin 7.1 and hematocrit 22.9 on admission. Will continue to monitor and transfuse as needed. Resume home medications FEN - Cardiac diet PPX - Heparin FULL CODE Dispo - inpatient for above HEME consult Continue dapto and meropenem , Cont Micafungin GI consult guiac stools CEA 37 min pt exam, chart review, > 50% of time spent with exam, chart review, pt care coordination Advance Care Planning: Total time spent [id number] with patient 16 minutes in discussion with goals of care, comfort care, end-of-life care, pain management, code status; patient names his (Radha Padilla) as surrogate decision-maker. History of Present Illness History of Present Illness impression Mr Byrnes is a 61-year-old male PMHx hypothyroidism, chronic pain, hernia, back surgery, right total knee replacement, and history of femur fracture and October 2020 osteomyelitis s/p cervical, thoracic, and lumbar epidural abscess drainage who presents to the ED with complaints of urinary retention. Patient states he has not urinated in the past 2 days prior to admit with associated bladder distention. He was recently admitted on 11/02/2020 for spinal epidural abscess, paraspinal cervical abscess, and osteomyelitis. He states he is currently on an antibiotic 3 times daily, but cannot member the name of this antibiotic. CT lumbar spine obtained in the ED showed redemonstrated changes of discitis osteomyelitis at L3-L4 with at least moderate spinal canal stenosis at that level L2-L5. Coello catheter was placed in the ED with reportedly 1000 mL urine output. Patient states he feels significantly better after having Coello placed, but is also reports chronic right knee pain. He has had right knee pain over t his past 3 years since total knee replacement, but states his pain is worsened over the past 3 days causing him difficulty moving. States his knee is slightly more mobile after pain medication he received in the ED. Neurosurgery was consulted in the ED and requesting admission. Admitted patient for further medical management. 01/27: Afebrile. Discussed with neurosurgery and ID his recent MRI is actually improved. He discloses to me that prior to his complicated hospital stay he had actually been weaned down from 150 mg daily of methadone for chronic pain to 10 mg 3 times daily and has had trouble having anyone to prescribe methadone for him. He continues to ask for pain medication regularly. Discussed complications of urinary retention related to chronic opioid therapy. 01/28: Afebrile. Platelets still low normal still low. Coello out today start on methadone per PMR. MRI reviewed with ID and neurosurgery, given MRI findings and thoracic and cervical areas changed likely persistent infection. Voiding trial today. PICC inserted 01/29: Afebrile overnight. Hemoglobin dropped below 7. Pain better controlled on methadone. No residual on PVR. 1u PRBC with good effect 01/30: Afebrile. Hb dropped to 6.8 again. 11 unit of blood transfusing. He actually feels better on the methadone is a little bit stronger. No more urinary retention. Afebrile. Hb 7.9 posttransfusion. Platelets up to 108. Feeling improved. - L2-L5 spinal canal stenosis with urinary retention - retention more likely medication side effect. Cervical spine stenosis History osteomyelitis DM2 - sliding scale Normocytic anemia - s/p transfusion Thrombocytopenia - hematology following Hypothyroidism FEN - Cardiac diet PPX - Heparin FULL CODE Dispo - inpatient for above HEME consult Continue dapto and meropenem , Cont Micafungin 37 min pt exam, chart review, > 50% of time spent with exam, chart review, pt care coordination 6-16 L2-L5 spinal canal stenosis with urinary retention - retention more likely medication side effect. Cervical spine stenosis History osteomyelitis DM2 - sliding scale Normocytic anemia - s/p transfusion Thrombocytopenia - hematology following Hypothyroidism FEN - Cardiac diet PPX - Heparin FULL CODE Dispo - inpatient for above HEME consult Continue dapto and meropenem , Cont Micafungin d/w rn * 2 weeks Discharge Recommendations * Nursing Home Unit Vitals Vitals Vital Signs Date Time Temp Pulse Resp B/P (MAP) Pulse Ox O2 Delivery O2 Flow Rate FiO2 02/03/21 08:00 Room Air 02/03/21 07:00 98.4 83 18 147/80 (102) 94 98.4 Physical Exam Physical Exam GENERAL: alert awake, sitting in bed appears comfortable HEENT: Normal conjunctivae. Oral cavity clear NECK: Supple. No JVP, no lymphadenopathy. LUNGS: Clear. HEART: S1, S2 regular. ABDOMEN: Soft, nontender. EXTREMITIES: No edema or cyanosis. Right knee wo redness/warmth/swelling. SKIN: No signs of gen rash. Groin yeast some better,dry flaky skin NEUROLOGIC: Alert, awake, and appropriate. MSK scar over cervical spine, lumbar spine healed some paraspinal pain in the low back, no dec in range of motion at neck RUE-PICC (01/28) clean General: Alert, Oriented X3, Cooperative, No acute distress Heart: Regular rate Lungs: Clear Abdomen: Normal bowel sounds, Soft, No tenderness Extremities: No clubbing, No cyanosis Labs LABS Ultrasound of the abdomen 02/02/2021 CLINICAL HISTORY: Abdominal pain. TECHNIQUE: A real-time ultrasound examination of the abdomen was performed. Multiple images were obtained. FINDINGS: Comparison is made to a CT scan of the abdomen dated 11/11/2020. The gallbladder is well-distended. Sludge is seen within the dependent portion of the gallbladder. The gallbladder wall thickness is within normal limits. No pericholecystic fluid is seen. The common bile duct measures 6 mm in diameter which is within normal limits. The liver, spleen, visualized portions of pancreas and kidneys are within normal limits. The abdominal aorta is not well- visualized due to overlying bowel gas. The inferior vena cava is not well- visualized due to overlying bowel gas. No free fluid is seen. IMPRESSION: Sludge is seen within the dependent portions of the gallbladder. Otherwise negative study. Electronically signed by: Stephane Munoz MD (02/02/2021 11:39 PM) [id number] DICTATED and SIGNED BY: STEPHANE MUNOZ MD DATE: 02/02/21 [id number] 0 Assessment and Plan Assessmemt and Plan Problems Medical Problems: (1) Urinary retention Status: Acute * Pt denies further needs Communicated Patient Care With (Name, Title) * Ean RN Goal 1 - Bed Mobility Assistance Required * Independent Goal 1 Assessment * Appropriate - Continue Goal 2 - Transfers Assistance Required * Independent Goal 2 - Transfer Type * Sit to Stand Goal 2 Assessment * Appropriate - Continue Goal 3 - Ambulation Assistance Required * Independent Goal 3 - Ambulation Distance * 100' Goal 3 - Ambulation Device * Roller Walker Goal 3 Assessment * Appropriate - Continue Goal 4 - Stairs Assistance Required * Independent Goal 4 - Number of Stairs * 2-4 Goal 4 - Device on Stairs * Roller Walker * Rail on Right Goal 4 Assessment * Appropriate - Continue Goal 5 * Indep with HEP. Goal 5 Assessment * Appropriate - Continue Treatment Plan * Therapeutic Exercise * Bed Mobility Training * Transfer training * Gait Training * Dynamic Balance Training Frequency of Treatment Expected * 7 visits/week Duration of Treatment Expected * 2 weeks Discharge Recommendations * Nursing Home Unit Discharge Recommendation - DME * Rolling Walker needed * and ambulation safely Discharge Recommendation Comments * TBD Comment Review of Relevant I have reviewed the following items almas (where applicable) has been applied. Labs Laboratory Tests Test 02/01/21 16:40 02/02/21 04:30 Prothrombin Time 12.3 SEC (11.7-14.0) Prothromb Time International Ratio 0.9 (0.8-1.1) White Blood Count 5.2 x10^3/uL (4.0-11.0) Red Blood Count 2.41 x10^6/uL (4.30-5.70) Hemoglobin 7.5 g/dL (13.0-17.5) Hematocrit 22.7 % (39.0-53.0) Mean Corpuscular Volume 94 fL (79-100) Mean Corpuscular Hemoglobin 31 pg (25-35) Mean Corpuscular Hemoglobin Concent 33 g/dL (31-37) Red Cell Distribution Width 15.0 % (11.5-14.5) Platelet Count 155 x10^3/uL (140-400) Neutrophils (%) (Auto) 53 % (31-73) Lymphocytes (%) (Auto) 35 % (24-48) Monocytes (%) (Auto) 7 % (0-9) Eosinophils (%) (Auto) 5 % (0-3) Basophils (%) (Auto) 1 % (0-3) Neutrophils # (Auto) 2.8 x10^3/uL (1.8-7.7) Lymphocytes # (Auto) 1.8 x10^3/uL (1.0-4.8) Monocytes # (Auto) 0.4 x10^3/uL (0.0-1.1) Eosinophils # (Auto) 0.2 x10^3/uL (0.0-0.7) Basophils # (Auto) 0.0 x10^3/uL (0.0-0.2) Absolute Reticulocyte Count 0.046 x10^6/uL (0.020-0.120) Percent Reticulocyte Count 1.9 % (0.5-2.3) Immature Reticulocyte Fraction 0.61 (0.20-0.60) Sodium Level 143 mmol/L (136-145) Potassium Level 4.0 mmol/L (3.5-5.1) Chloride Level 107 mmol/L (98-107) Carbon Dioxide Level 28 mmol/L (21-32) Anion Gap 8 (6-14) Blood Urea Nitrogen 9 mg/dL (8-26) Creatinine 0.6 mg/dL (0.7-1.3) Estimated GFR (Cockcroft-Gault) 137.9 Glucose Level 90 mg/dL (70-99) Calcium Level 8.4 mg/dL (8.5-10.1) C-Reactive Protein, Quantitative 17.8 mg/L (0-3.3) Microbiology 01/26/21 Urine Culture - Final, Complete Medications Current Medications Iohexol (Omnipaque 300 Mg/ml) 75 ml 1X ONCE IV Last administered on 01/26/21at 14:54; Start 01/26/21 at 14:30; Stop 01/26/21 at 14:31; Status DC Info (CONTRAST GIVEN -- Rx MONITORING) 1 each PRN DAILY PRN MC SEE COMMENTS; Start 01/26/21 at 14:30; Stop 01/28/21 at 14:29; Status DC Fentanyl Citrate (Fentanyl 2ml Vial) 50 mcg 1X ONCE IV Last administered on 01/26/21at 14:59; Start 01/26/21 at 14:30; Stop 01/26/21 at 14:31; Status DC Ondansetron HCl (Zofran) 4 mg 1X ONCE IV Last administered on 01/26/21at 14:59; Start 01/26/21 at 14:30; Stop 01/26/21 at 14:31; Status DC Insulin Human Lispro (HumaLOG) 0-7 UNITS TIDWMEALS SQ ; Start 01/27/21 at 08:00; Stop 01/29/21 at 11:43; Status DC Dextrose (Dextrose 50%-Water Syringe) 12.5 gm PRN Q15MIN PRN IV SEE COMMENTS; Start 01/26/21 at 18:15; Stop 01/29/21 at 11:43; Status DC Dextrose (Iv Dextrose 5%) 250 ml PRN Q15MIN PRN IV SEE COMMENTS; Start 01/26/21 at 18:15; Status UNV Ondansetron HCl (Zofran) 4 mg PRN Q6HRS PRN IVP NAUSEA/VOMITING Last adminis tered on 01/28/21at 04:08; Start 01/26/21 at 18:15 Al Hydroxide/Mg Hydroxide (Mylanta Plus Xs) 30 ml PRN Q3HRS PRN PO HEARTBURN / GAS; Start 01/26/21 at 18:15 Calcium Carbonate/ Glycine (Tums) 500 mg PRN Q3HRS PRN PO UPSET STOMACH; Start 01/26/21 at 18:15 Zolpidem Tartrate (Ambien) 5 mg PRN QHS PRN PO INSOMNIA, MAY REPEAT IN 1HR Last administered on 01/27/21at 23:55; Start 01/26/21 at 18:15 Morphine Sulfate (Morphine Sulfate) 2 mg PRN Q1HR PRN IV MODERATE PAIN Last administered on 01/26/21at 19:27; Start 01/26/21 at 18:15; Stop 01/28/21 at 09:01; Status DC Acetaminophen/ Hydrocodone Bitart (Lortab 5/325) 1 tab PRN Q4HRS PRN PO MILD PAIN 1-3; Start 01/26/21 at 18:15; Stop 01/28/21 at 09:01; Status DC Acetaminophen/ Hydrocodone Bitart (Lortab 5/325) 2 tab PRN Q4HRS PRN PO MODERATE PAIN Last administered on 01/28/21at 04:39; Start 01/26/21 at 18:15; Stop 01/28/21 at 09:01; Status DC Hydromorphone HCl (Dilaudid) 2 mg PRN Q4HRS PRN PO MODERATE PAIN, 2ND CHOICE; Start 01/26/21 at 18:15; Stop 01/28/21 at 09:01; Status DC Hydromorphone HCl (Dilaudid) 4 mg PRN Q4HRS PRN PO SEVERE PAIN; Start 01/26/21 at 18:15; Stop 01/28/21 at 09:01; Status DC Acetaminophen (Tylenol) 650 mg PRN Q6HRS PRN PO Headaches, Temp > 101.5F Last administered on 01/30/21at 11:15; Start 01/26/21 at 18:15 Magnesium Hydroxide (Milk Of Magnesia) 2,400 mg PRN Q12HR PRN PO CONSTIPATION (1st Choice) Last administered on 01/27/21at 16:39; Start 01/26/21 at 18:15 Bisacodyl (Dulcolax Supp) 10 mg PRN DAILY PRN AL CONSTIPATION; Start 01/26/21 at 18:15 Heparin Sodium (Porcine) (Heparin Sodium) 5,000 unit Q8HRS SQ Last administered on 02/03/21at 05:44; Start 01/26/21 at 22:00 Hydromorphone HCl (Dilaudid) 2 mg PRN Q4HRS PRN IVP SEVERE PAIN Last administered on 01/27/21at 09:37; Start 01/26/21 at 18:15; Stop 01/28/21 at 09:01; Status DC Lorazepam (Ativan Inj) 2 mg PRN Q4HRS PRN IVP ANXIETY / AGITATION Last administered on 02/02/21at 03:31; Start 01/26/21 at 18:15 Trazodone HCl (Desyrel) 75 mg HS PO Last administered on 02/02/21at 20:39; Start 01/26/21 at 21:30 Clonazepam (KlonoPIN) 1 mg TID PO Last administered on 01/27/21at 09:32; Start 01/26/21 at 21:30; Stop 01/27/21 at 13:36; Status DC Cephalexin HCl (Keflex) 500 mg TID PO Last administered on 01/30/21at 09:33; Start 01/27/21 at 09:00; Stop 01/30/21 at 13:51; Status DC Lactobacillus Rhamnosus (Culturelle) 1 cap BID PO Last administered on 02/03/21 08:42; Start 01/27/21 at 21:00 Clonazepam (KlonoPIN) 1 mg PRN TID PRN PO anxiety Last administered on 02/03/21 01:27; Start 01/27/21 at 13:45 Gadoterate Meglumine (Clariscan) 17 ml 1X ONCE IVP Last administered on 01/27/21at 14:54; Start 01/27/21 at 13:45; Stop 01/27/21 at 13:49; Status DC Senna/Docusate Sodium (Senna Plus) 1 tab BID PO Last administered on 02/03/21at 08:42; Start 01/27/21 at 21:00 Polyethylene Glycol (miraLAX PACKET) 17 gm DAILY PO Last administered on 02/03/21at 08:42; Start 01/28/21 at 09:00 Bisacodyl (Dulcolax Tab) 10 mg PRN DAILY PRN PO CONSTIPATION (2nd Choice) Last administered on 01/27/21at 16:40; Start 01/27/21 at 16:15 Tamsulosin HCl (Flomax) 0.4 mg QHS PO Last administered on 02/02/21at 20:39; Start 01/27/21 at 21:00 Polyethylene Glycol (miraLAX PACKET) 17 gm DAILY PO ; Start 01/27/21 at 16:15; Status UNV Senna/Docusate Sodium (Senna Plus) 1 tab DAILY PO ; Start 01/27/21 at 16:15; Status UNV Gabapentin (Neurontin) 300 mg QID PO Last administered on 02/03/21at 08:42; Start 01/28/21 at 09:30 Levothyroxine Sodium (Synthroid) 200 mcg DAILY06 PO Last administered on 02/03/21at 05:33; Start 01/28/21 at 09:30 Methadone HCl (Dolophine) 10 mg TID PO Last administered on 02/03/21at 08:42; Start 01/28/21 at 09:00 Daptomycin 450 mg/ Sodium Chloride 50 ml @ 100 mls/hr Q24H IV Last administered on 02/02/21at 13:11; Start 01/28/21 at 12:30 Meropenem 500 mg/ Sodium Chloride 50 ml @ 100 mls/hr Q8HRS IV Last administered on 01/30/21at 06:04; Start 01/28/21 at 14:00; Stop 01/30/21 at 15:56; Status DC Lidocaine HCl (Buffered Lidocaine 1%) 3 ml STK-MED ONCE .ROUTE ; Start 01/28/21 at 14:32; Stop 01/28/21 at 14:33; Status DC Lidocaine HCl (Buffered Lidocaine 1%) 3 ml 1X ONCE INJ Last administered on 01/28/21at 15:22; Start 01/28/21 at 15:15; Stop 01/28/21 at 15:16; Status DC Cyanocobalamin (Vitamin B-12 Inj) 1,000 mcg 1X ONCE IM Last administered on 01/29/21at 09:28; Start 01/29/21 at 07:30; Stop 01/29/21 at 07:31; Status DC Meropenem 500 mg/ Sodium Chloride 50 ml @ 100 mls/hr Q6HRS IV Last administered on 02/03/21at 05:33; Start 01/30/21 at 18:00 Micafungin Sodium 100 mg/Dextrose 100 ml @ 100 mls/hr Q24H IV Last administered on 02/02/21at 17:09; Start 01/30/21 at 17:00 Pantoprazole Sodium (PROTONIX VIAL for IV PUSH) 40 mg DAILYAC IVP Last administered on 02/02/21at 09:25; Start 02/02/21 at 07:30; Stop 02/02/21 at 10:20; Status DC Pantoprazole Sodium (Protonix) 40 mg DAILYAC PO Last administered on 02/03/21at 05:38; Start 02/03/21 at 07:30 Active Scripts Active Percocet 5-325 Mg Tablet (Oxycodone/Acetaminophen) 1 Each Tablet 1 Tab PO PRN Q6HRS PRN 5 Days Metformin Hcl Er (Metformin Hcl) 500 Mg Tab.er.24h 500 Mg PO [id number] 30 Days Reported Klonopin (Clonazepam) 1 Mg Tablet 1 Tab PO TID Trazodone Hcl 100 Mg Tablet 75 Mg PO HS Keflex (Cephalexin) 750 Mg Capsule 500 Mg PO TID Ferrous Sulfate 325 Mg Tablet 1 Tab PO BID Cyclobenzaprine Hcl 10 Mg Tablet 10 Mg PO HS Nifedipine Er (Nifedipine) 30 Mg Tablet.er 30 Mg PO HS Atenolol 50 Mg Tablet 50 Mg PO DAILY Losartan Potassium 100 Mg Tablet 100 Mg PO DAILY16 Colace (Docusate Sodium) 100 Mg Capsule 100 Mg PO DAILY Gabapentin 600 Mg Tablet 1,800 Mg PO BID Levothyroxine Sodium 200 Mcg Tablet 200 Mcg PO DAILYAC Hydrochlorothiazide Tablet (Hydrochlorothiazide) 25 Mg Tablet 50 Mg PO DAILY Vitals/I & O Vital Sign - Last 24 Hours 02/02/21 02/02/21 02/02/21 02/02/21 10:34 14:31 19:00 20:00 Temp 98.0 98.3 98.0 98.0 98.3 98.0 Pulse 120 102 80 Resp 18 18 18 B/P (MAP) 172/101 (124) 123/83 (96) 168/88 (114) Pulse Ox 96 96 95 O2 Delivery Room Air Room Air Room Air Room Air 02/02/21 02/03/21 02/03/21 02/03/21 23:00 02:44 07:00 08:00 Temp 99.1 98.8 98.4 99.1 98.8 98.4 Pulse 90 88 83 Resp 18 18 18 B/P (MAP) 135/78 (97) 132/68 (89) 147/80 (102) Pulse Ox 93 96 94 O2 Delivery Room Air Room Air Room Air Room Air Intake and Output 02/02/21 02/02/21 02/03/21 14:59 22:59 06:59 Intake Total 200 ml Output Total 800 ml 1500 ml Balance -800 ml -1300 ml Justicifation of Admission Dx: Justifications for Admission: Justification of Admission Dx: Yes KEITH CHIN MD Feb 03, 2021 09:44
--- NOTE | 2021-02-03 10:25 | PDOC ---
PROGRESS NOTES Date of Service DATE: 02/03/21 TIME: 10:23 Subjective Subjective He feels better Objective Objective Vital Signs Date Time Temp Pulse Resp B/P (MAP) Pulse Ox O2 Delivery O2 Flow Rate FiO2 02/03/21 08:00 Room Air 02/03/21 07:00 98.4 83 18 147/80 (102) 94 98.4 01/30/21 11:00 2.0 Intake and Output 02/03/21 07:00 Intake Total 200 ml Output Total 2300 ml Balance -2100 ml Intake Oral 200 ml Output Urine Total 2300 ml Physical Exam Physical Exam He is alert,sitting in bedside chair and seems to be in no acute distress and he has been walking with roller walker on level surface. Assessment Assessment Problems Medical Problems: (1) Urinary retention Status: Acute Plan Plan of Assisted with home health follow up when medically stable. Comment Review of Relevant I have reviewed the following items almas (where applicable) has been applied. Labs Laboratory Tests Test 02/01/21 16:40 02/02/21 04:30 Prothrombin Time 12.3 SEC (11.7-14.0) Prothromb Time International Ratio 0.9 (0.8-1.1) White Blood Count 5.2 x10^3/uL (4.0-11.0) Red Blood Count 2.41 x10^6/uL (4.30-5.70) Hemoglobin 7.5 g/dL (13.0-17.5) Hematocrit 22.7 % (39.0-53.0) Mean Corpuscular Volume 94 fL (79-100) Mean Corpuscular Hemoglobin 31 pg (25-35) Mean Corpuscular Hemoglobin Concent 33 g/dL (31-37) Red Cell Distribution Width 15.0 % (11.5-14.5) Platelet Count 155 x10^3/uL (140-400) Neutrophils (%) (Auto) 53 % (31-73) Lymphocytes (%) (Auto) 35 % (24-48) Monocytes (%) (Auto) 7 % (0-9) Eosinophils (%) (Auto) 5 % (0-3) Basophils (%) (Auto) 1 % (0-3) Neutrophils # (Auto) 2.8 x10^3/uL (1.8-7.7) Lymphocytes # (Auto) 1.8 x10^3/uL (1.0-4.8) Monocytes # (Auto) 0.4 x10^3/uL (0.0-1.1) Eosinophils # (Auto) 0.2 x10^3/uL (0.0-0.7) Basophils # (Auto) 0.0 x10^3/uL (0.0-0.2) Absolute Reticulocyte Count 0.046 x10^6/uL (0.020-0.120) Percent Reticulocyte Count 1.9 % (0.5-2.3) Immature Reticulocyte Fraction 0.61 (0.20-0.60) Sodium Level 143 mmol/L (136-145) Potassium Level 4.0 mmol/L (3.5-5.1) Chloride Level 107 mmol/L (98-107) Carbon Dioxide Level 28 mmol/L (21-32) Anion Gap 8 (6-14) Blood Urea Nitrogen 9 mg/dL (8-26) Creatinine 0.6 mg/dL (0.7-1.3) Estimated GFR (Cockcroft-Gault) 137.9 Glucose Level 90 mg/dL (70-99) Calcium Level 8.4 mg/dL (8.5-10.1) C-Reactive Protein, Quantitative 17.8 mg/L (0-3.3) Microbiology 01/26/21 Urine Culture - Final, Complete Medications Current Medications Iohexol (Omnipaque 300 Mg/ml) 75 ml 1X ONCE IV Last administered on 01/26/21at 14:54; Start 01/26/21 at 14:30; Stop 01/26/21 at 14:31; Status DC Info (CONTRAST GIVEN -- Rx MONITORING) 1 each PRN DAILY PRN MC SEE COMMENTS; Start 01/26/21 at 14:30; Stop 01/28/21 at 14:29; Status DC Fentanyl Citrate (Fentanyl 2ml Vial) 50 mcg 1X ONCE IV Last administered on 01/26/21at 14:59; Start 01/26/21 at 14:30; Stop 01/26/21 at 14:31; Status DC Ondansetron HCl (Zofran) 4 mg 1X ONCE IV Last administered on 01/26/21at 14:59; Start 01/26/21 at 14:30; Stop 01/26/21 at 14:31; Status DC Insulin Human Lispro (HumaLOG) 0-7 UNITS TIDWMEALS SQ ; Start 01/27/21 at 08:00; Stop 01/29/21 at 11:43; Status DC Dextrose (Dextrose 50%-Water Syringe) 12.5 gm PRN Q15MIN PRN IV SEE COMMENTS; Start 01/26/21 at 18:15; Stop 01/29/21 at 11:43; Status DC Dextrose (Iv Dextrose 5%) 250 ml PRN Q15MIN PRN IV SEE COMMENTS; Start 01/26/21 at 18:15; Status UNV Ondansetron HCl (Zofran) 4 mg PRN Q6HRS PRN IVP NAUSEA/VOMITING Last administered on 01/28/21at 04:08; Start 01/26/21 at 18:15 Al Hydroxide/Mg Hydroxide (Mylanta Plus Xs) 30 ml PRN Q3HRS PRN PO HEARTBURN / GAS; Start 01/26/21 at 18:15 Calcium Carbonate/ Glycine (Tums) 500 mg PRN Q3HRS PRN PO UPSET STOMACH; Start 01/26/21 at 18:15 Zolpidem Tartrate (Ambien) 5 mg PRN QHS PRN PO INSOMNIA, MAY REPEAT IN 1HR Last administered on 01/27/21at 23:55; Start 01/26/21 at 18:15 Morphine Sulfate (Morphine Sulfate) 2 mg PRN Q1HR PRN IV MODERATE PAIN Last administered on 01/26/21at 19:27; Start 01/26/21 at 18:15; Stop 01/28/21 at 09:01; Status DC Acetaminophen/ Hydrocodone Bitart (Lortab 5/325) 1 tab PRN Q4HRS PRN PO MILD PAIN 1-3; Start 01/26/21 at 18:15; Stop 01/28/21 at 09:01; Status DC Acetaminophen/ Hydrocodone Bitart (Lortab 5/325) 2 tab PRN Q4HRS PRN PO MODERATE PAIN Last administered on 01/28/21at 04:39; Start 01/26/21 at 18:15; Stop 01/28/21 at 09:01; Status DC Hydromorphone HCl (Dilaudid) 2 mg PRN Q4HRS PRN PO MODERATE PAIN, 2ND CHOICE; Start 01/26/21 at 18:15; Stop 01/28/21 at 09:01; Status DC Hydromorphone HCl (Dilaudid) 4 mg PRN Q4HRS PRN PO SEVERE PAIN; Start 01/26/21 at 18:15; Stop 01/28/21 at 09:01; Status DC Acetaminophen (Tylenol) 650 mg PRN Q6HRS PRN PO Headaches, Temp > 101.5F Last administered on 01/30/21at 11:15; Start 01/26/21 at 18:15 Magnesium Hydroxide (Milk Of Magnesia) 2,400 mg PRN Q12HR PRN PO CONSTIPATION (1st Choice) Last administered on 01/27/21at 16:39; Start 01/26/21 at 18:15 Bisacodyl (Dulcolax Supp) 10 mg PRN DAILY PRN [place] CONSTIPATION; Start 01/26/21 at 18:15 Heparin Sodium (Porcine) (Heparin Sodium) 5,000 unit Q8HRS SQ Last administered on 02/03/21at 05:44; Start 01/26/21 at 22:00 Hydromorphone HCl (Dilaudid) 2 mg PRN Q4HRS PRN IVP SEVERE PAIN Last administered on 01/27/21at 09:37; Start 01/26/21 at 18:15; Stop 01/28/21 at 09:01; Status DC Lorazepam (Ativan Inj) 2 mg PRN Q4HRS PRN IVP ANXIETY / AGITATION Last administered on 02/02/21at 03:31; Start 01/26/21 at 18:15 Trazodone HCl (Desyrel) 75 mg HS PO Last administered on 02/02/21at 20:39; Start 01/26/21 at 21:30 Clonazepam (KlonoPIN) 1 mg TID PO Last administered on 01/27/21at 09:32; Start 01/26/21 at 21:30; Stop 01/27/21 at 13:36; Status DC Cephalexin HCl (Keflex) 500 mg TID PO Last administered on 01/30/21at 09:33; Start 01/27/21 at 09:00; Stop 01/30/21 at 13:51; Status DC Lactobacillus Rhamnosus (Culturelle) 1 cap BID PO Last administered on 02/03/21at 08:42; Start 01/27/21 at 21:00 Clonazepam (KlonoPIN) 1 mg PRN TID PRN PO anxiety Last administered on 02/03/21 01:27; Start 01/27/21 at 13:45 Gadoterate Meglumine (Clariscan) 17 ml 1X ONCE IVP Last administered on 01/27/21at 14:54; Start 01/27/21 at 13:45; Stop 01/27/21 at 13:49; Status DC Senna/Docusate Sodium (Senna Plus) 1 tab BID PO Last administered on 02/03/21 08:42; Start 01/27/21 at 21:00 Polyethylene Glycol (miraLAX PACKET) 17 gm DAILY PO Last administered on 02/03/21 08:42; Start 01/28/21 at 09:00 Bisacodyl (Dulcolax Tab) 10 mg PRN DAILY PRN PO CONSTIPATION (2nd Choice) Last administered on 01/27/21 16:40; Start 01/27/21 at 16:15 Tamsulosin HCl (Flomax) 0.4 mg QHS PO Last administered on 02/02/21at 20:39; Start 01/27/21 at 21:00 Polyethylene Glycol (miraLAX PACKET) 17 gm DAILY PO ; Start 01/27/21 at 16:15; Status UNV Senna/Docusate Sodium (Senna Plus) 1 tab DAILY PO ; Start 01/27/21 at 16:15; Status UNV Gabapentin (Neurontin) 300 mg QID PO Last administered on 02/03/21at 08:42; Start 01/28/21 at 09:30 Levothyroxine Sodium (Synthroid) 200 mcg DAILY06 PO Last administered on 02/03/21at 05:33; Start 01/28/21 at 09:30 Methadone HCl (Dolophine) 10 mg TID PO Last administered on 02/03/21at 08:42; Start 01/28/21 at 09:00 Daptomycin 450 mg/ Sodium Chloride 50 ml @ 100 mls/hr Q24H IV Last administered on 02/02/21at 13:11; Start 01/28/21 at 12:30 Meropenem 500 mg/ Sodium Chloride 50 ml @ 100 mls/hr Q8HRS IV Last administered on 01/30/21at 06:04; Start 01/28/21 at 14:00; Stop 01/30/21 at 15:56; Status DC Lidocaine HCl (Buffered Lidocaine 1%) 3 ml STK-MED ONCE .ROUTE ; Start 01/28/21 at 14:32; Stop 01/28/21 at 14:33; Status DC Lidocaine HCl (Buffered Lidocaine 1%) 3 ml 1X ONCE INJ Last administered on 01/28/21at 15:22; Start 01/28/21 at 15:15; Stop 01/28/21 at 15:16; Status DC Cyanocobalamin (Vitamin B-12 Inj) 1,000 mcg 1X ONCE IM Last administered on 01/29/21at 09:28; Start 01/29/21 at 07:30; Stop 01/29/21 at 07:31; Status DC Meropenem 500 mg/ Sodium Chloride 50 ml @ 100 mls/hr Q6HRS IV Last administered on 02/03/21at 05:33; Start 01/30/21 at 18:00 Micafungin Sodium 100 mg/Dextrose 100 ml @ 100 mls/hr Q24H IV Last administered on 02/02/21at 17:09; Start 01/30/21 at 17:00 Pantoprazole Sodium (PROTONIX VIAL for IV PUSH) 40 mg DAILYAC IVP Last administered on 02/02/21at 09:25; Start 02/02/21 at 07:30; Stop 02/02/21 at 10:20; Status DC Pantoprazole Sodium (Protonix) 40 mg DAILYAC PO Last administered on 02/03/21at 05:38; Start 02/03/21 at 07:30 Active Scripts Active Percocet 5-325 Mg Tablet (Oxycodone/Acetaminophen) 1 Each Tablet 1 Tab PO PRN Q6HRS PRN 5 Days Metformin Hcl Er (Metformin Hcl) 500 Mg Tab.er.24h 500 Mg PO DAILYWBKFT 30 Days Reported Klonopin (Clonazepam) 1 Mg Tablet 1 Tab PO TID Trazodone Hcl 100 Mg Tablet 75 Mg PO HS Keflex (Cephalexin) 750 Mg Capsule 500 Mg PO TID Ferrous Sulfate 325 Mg Tablet 1 Tab PO BID Cyclobenzaprine Hcl 10 Mg Tablet 10 Mg PO HS Nifedipine Er (Nifedipine) 30 Mg Tablet.er 30 Mg PO HS Atenolol 50 Mg Tablet 50 Mg PO DAILY Losartan Potassium 100 Mg Tablet 100 Mg PO DAILY16 Colace (Docusate Sodium) 100 Mg Capsule 100 Mg PO DAILY Gabapentin 600 Mg Tablet 1,800 Mg PO BID Levothyroxine Sodium 200 Mcg Tablet 200 Mcg PO DAILYAC Hydrochlorothiazide Tablet (Hydrochlorothiazide) 25 Mg Tablet 50 Mg PO DAILY Vitals/I & O Vital Sign - Last 24 Hours 02/02/21 02/02/21 02/02/21 02/02/21 10:34 14:31 19:00 20:00 Temp 98.0 98.3 98.0 98.0 98.3 98.0 Pulse 120 102 80 Resp 18 18 18 B/P (MAP) 172/101 (124) 123/83 (96) 168/88 (114) Pulse Ox 96 96 95 O2 Delivery Room Air Room Air Room Air Room Air 02/02/21 02/03/21 02/03/21 02/03/21 23:00 02:44 07:00 08:00 Temp 99.1 98.8 98.4 99.1 98.8 98.4 Pulse 90 88 83 Resp 18 18 18 B/P (MAP) 135/78 (97) 132/68 (89) 147/80 (102) Pulse Ox 93 96 94 O2 Delivery Room Air Room Air Room Air Room Air Intake and Output 02/02/21 02/02/21 02/03/21 15:00 23:00 07:00 Intake Total 200 ml Output Total 800 ml 900 ml 600 ml Balance -800 ml -900 ml -400 ml Justifications for Admission Other Justification Lumbar spinal stenosis concerning for cauda equina syndrome RENETTA HOWARD MD Feb 03, 2021 10:25
--- NOTE | 2021-02-03 10:49 | PDOC ---
Date of Service: DATE: 02/03/21 TIME: 10:47 Subjective: Subjective: No GI complaints, says stooled yesterday. Objective: Vital Signs: Vital Signs Date Time Temp Pulse Resp B/P (MAP) Pulse Ox O2 Delivery O2 Flow Rate FiO2 02/03/21 08:00 Room Air 02/03/21 07:00 98.4 83 18 147/80 (102) 94 98.4 Imaging: Abd US IMPRESSION: Sludge is seen within the dependent portions of the gallbladder. Otherwise negative study. PE: GEN: NAD - in chair LUNGS: CTAB HEART: RRR ABD: S/ND/NT NEURO/PSYCH: A & O 3 A/P: Back pain (on methadone), ?reactivation of spinal infection Anemia H/o constipation - stooling GB sludge on US -- Stable from GI standpoint. Justicifation of Admission Dx: Justifications for Admission: Justification of Admission Dx: Yes LULA PACE Feb 03, 2021 10:49
[2021-02-03 11:00] VITALS: BP 110/74
[2021-02-03] MEDS: DAPTOmycin (GENERIC) IVPB 450 MG in IV NORMAL SALINE 50ML 50 ML IV SCH (12:30)
--- NOTE | 2021-02-03 13:20 | NUR ---
SS following up with discharge planning. SS reviewed pt chart and discussed with pt RN. Pt is currently on room air. Per RN, Dr. Dacosta stated that pt will need IV Daptomycin QD and IV Zosyn 13.5 grams continuous QD. SS currently awaiting script. SS phoned and faxed demographics and clinicals to [facility], ; fax [phone]. Pt accepted on services with [facility], ; fax [phone]. SS will continue to follow for discharge planning. Addendum: 02/03/21 at 1528 by MORALES OLIVER SS [facility] contacted SS and stated that Zosyn would be $100 per week and Daptomycin would be 1049.64 per week. SS discussed with pt and revisited [facility] unit. Pt reported that he cannot afford either but would discuss with his spouse. Pt requested that SS follow up with him in the morning.
[2021-02-03 14:40] LABS: FECAL OB PT NEGATIVE (NEG)
[2021-02-03 15:00] VITALS: BP 141/74
[2021-02-03] MEDS: MICAFUNGIN 100 MG in IV DEXTROSE 5% 100ML 100 ML IV SCH (17:19)
[2021-02-03 19:12] VITALS: BP 152/89
[2021-02-03] MEDS: traZODone 50 MG TABLET. PO SCH (20:35)
[2021-02-03] MEDS: TAMSULOSIN 0.4 MG CAP.ER.24H. PO SCH (20:35)
[2021-02-03 22:12] VITALS: BP 154/82
[2021-02-04 02:06] VITALS: BP 144/82
[2021-02-04] MEDS: MEROPENEM 500 MG in IV NORMAL SALINE 50ML 50 ML IV SCH ×3 (05:32→17:21)
[2021-02-04] MEDS: LEVOTHYROXINE 100 MCG TABLET PO SCH (05:32)
[2021-02-04] MEDS: PANTOPRAZOLE 40 MG TABLET.DR. PO SCH (05:32)
[2021-02-04] MEDS: HEPARIN for SUB-Q USE 5,000 UNIT/ML VIAL. SQ SCH ×3 (05:37→22:34)
[2021-02-04 06:22] LABS: CALCIUM 8.4 mg/dL (8.5-10.1); CREATININE 0.6 mg/dL (0.7-1.3); GFR 137.9; POTASSIUM 4.2 mmol/L (3.5-5.1)
[2021-02-04 06:38] LABS: BASO % 1 % (0-3); EOS # 0.2 x10^3/uL (0.0-0.7); EOS % 5 % (0-3); HEMATOCRIT 23.1 % (39.0-53.0); HEMOGLOBIN 7.7 g/dL (13.0-17.5); LYMPH # 1.7 x10^3/uL (1.0-4.8); LYMPH % 34 % (24-48); MEAN CORPUSCULAR HEMOGLOBIN 31 pg (25-35); MEAN CORPUSCULAR HGB CONC 33 g/dL (31-37); MEAN CORPUSCULAR VOLUME 94 fL (79-100); MONO # 0.3 x10^3/uL (0.0-1.1); MONO % 7 % (0-9); NEUT # 2.6 x10^3/uL (1.8-7.7); NEUT % 53 % (31-73); PLATELET COUNT 204 x10^3/uL (140-400); RED BLOOD COUNT 2.47 x10^6/uL (4.30-5.70); RED CELL DISTRIBUTION WIDTH 15.1 % (11.5-14.5); WHITE BLOOD COUNT 4.8 x10^3/uL (4.0-11.0)
[2021-02-04 06:55] VITALS: BP 152/83
[2021-02-04] MEDS: SENNOSIDES/DOCUSATE 8.6/50MG TABLET. PO SCH ×2 (08:00→22:30)
[2021-02-04] MEDS: LACTOBACILLUS RHAMNOSUS GG 1 CAPSULE. PO SCH ×2 (08:00→22:27)
[2021-02-04] MEDS: POLYETHYLENE GLYCOL 3350 17 GM PACKET. PO SCH (08:00)
[2021-02-04] MEDS: METHADONE 10 MG TABLET. PO SCH ×3 (08:00→22:34)
[2021-02-04] MEDS: GABAPENTIN 300 MG CAPSULE. PO SCH ×4 (08:00→22:29)
--- NOTE | 2021-02-04 08:31 | PDOC ---
PROGRESS NOTES Date of Service DATE: 02/04/21 TIME: 08:30 Subjective Subjective No new complaints. Objective Objective Vital Signs Date Time Temp Pulse Resp B/P (MAP) Pulse Ox O2 Delivery O2 Flow Rate FiO2 02/04/21 07:46 Room Air 02/04/21 06:55 98.5 75 18 152/83 (106) 90 98.5 01/30/21 11:00 2.0 Intake and Output 02/04/21 07:00 Intake Total 1390 ml Output Total 1025 ml Balance 365 ml Intake Oral 1290 ml IV Total 100 ml Output Urine Total 1025 ml # Voids 1 # Bowel Movements 2 Physical Exam Physical Exam He is alert,in bed with head end propped up and receiving oxygen by nasal canula. Assessment Assessment Problems Medical Problems: (1) Urinary retention Status: Acute Plan Plan of Care Agree with plans. Comment Review of Relevant I have reviewed the following items almas (where applicable) has been applied. Labs Laboratory Tests Test 02/03/21 12:21 02/04/21 06:00 Stool Occult Blood Negative (NEG) White Blood Count 4.8 x10^3/uL (4.0-11.0) Red Blood Count 2.47 x10^6/uL (4.30-5.70) Hemoglobin 7.7 g/dL (13.0-17.5) Hematocrit 23.1 % (39.0-53.0) Mean Corpuscular Volume 94 fL (79-100) Mean Corpuscular Hemoglobin 31 pg (25-35) Mean Corpuscular Hemoglobin Concent 33 g/dL (31-37) Red Cell Distribution Width 15.1 % (11.5-14.5) Platelet Count 204 x10^3/uL (140-400) Neutrophils (%) (Auto) 53 % (31-73) Lymphocytes (%) (Auto) 34 % (24-48) Monocytes (%) (Auto) 7 % (0-9) Eosinophils (%) (Auto) 5 % (0-3) Basophils (%) (Auto) 1 % (0-3) Neutrophils # (Auto) 2.6 x10^3/uL (1.8-7.7) Lymphocytes # (Auto) 1.7 x10^3/uL (1.0-4.8) Monocytes # (Auto) 0.3 x10^3/uL (0.0-1.1) Eosinophils # (Auto) 0.2 x10^3/uL (0.0-0.7) Basophils # (Auto) 0.0 x10^3/uL (0.0-0.2) Sodium Level 146 mmol/L (136-145) Potassium Level 4.2 mmol/L (3.5-5.1) Chloride Level 108 mmol/L (98-107) Carbon Dioxide Level 31 mmol/L (21-32) Anion Gap 7 (6-14) Blood Urea Nitrogen 6 mg/dL (8-26) Creatinine 0.6 mg/dL (0.7-1.3) Estimated GFR (Cockcroft-Gault) 137.9 Glucose Level 81 mg/dL (70-99) Calcium Level 8.4 mg/dL (8.5-10.1) Laboratory Tests Test 02/03/21 12:21 02/04/21 06:00 Stool Occult Blood Negative (NEG) White Blood Count 4.8 x10^3/uL (4.0-11.0) Red Blood Count 2.47 x10^6/uL (4.30-5.70) Hemoglobin 7.7 g/dL (13.0-17.5) Hematocrit 23.1 % (39.0-53.0) Mean Corpuscular Volume 94 fL (79-100) Mean Corpuscular Hemoglobin 31 pg (25-35) Mean Corpuscular Hemoglobin Concent 33 g/dL (31-37) Red Cell Distribution Width 15.1 % (11.5-14.5) Platelet Count 204 x10^3/uL (140-400) Neutrophils (%) (Auto) 53 % (31-73) Lymphocytes (%) (Auto) 34 % (24-48) Monocytes (%) (Auto) 7 % (0-9) Eosinophils (%) (Auto) 5 % (0-3) Basophils (%) (Auto) 1 % (0-3) Neutrophils # (Auto) 2.6 x10^3/uL (1.8-7.7) Lymphocytes # (Auto) 1.7 x10^3/uL (1.0-4.8) Monocytes # (Auto) 0.3 x10^3/uL (0.0-1.1) Eosinophils # (Auto) 0.2 x10^3/uL (0.0-0.7) Basophils # (Auto) 0.0 x10^3/uL (0.0-0.2) Sodium Level 146 mmol/L (136-145) Potassium Level 4.2 mmol/L (3.5-5.1) Chloride Level 108 mmol/L (98-107) Carbon Dioxide Level 31 mmol/L (21-32) Anion Gap 7 (6-14) Blood Urea Nitrogen 6 mg/dL (8-26) Creatinine 0.6 mg/dL (0.7-1.3) Estimated GFR (Cockcroft-Gault) 137.9 Glucose Level 81 mg/dL (70-99) Calcium Level 8.4 mg/dL (8.5-10.1) Microbiology 01/26/21 Urine Culture - Final, Complete Medications Current Medications Iohexol (Omnipaque 300 Mg/ml) 75 ml 1X ONCE IV Last administered on 01/26/21at 14:54; Start 01/26/21 at 14:30; Stop 01/26/21 at 14:31; Status DC Info (CONTRAST GIVEN -- Rx MONITORING) 1 each PRN DAILY PRN MC SEE COMMENTS; Start 01/26/21 at 14:30; Stop 01/28/21 at 14:29; Status DC Fentanyl Citrate (Fentanyl 2ml Vial) 50 mcg 1X ONCE IV Last administered on 01/26/21at 14:59; Start 01/26/21 at 14:30; Stop 01/26/21 at 14:31; Status DC Ondansetron HCl (Zofran) 4 mg 1X ONCE IV Last administered on 01/26/21at 14:59; Start 01/26/21 at 14:30; Stop 01/26/21 at 14:31; Status DC Insulin Human Lispro (HumaLOG) 0-7 UNITS TIDWMEALS SQ ; Start 01/27/21 at 08:00; Stop 01/29/21 at 11:43; Status DC Dextrose (Dextrose 50%-Water Syringe) 12.5 gm PRN Q15MIN PRN IV SEE COMMENTS; Start 01/26/21 at 18:15; Stop 01/29/21 at 11:43; Status DC Dextrose (Iv Dextrose 5%) 250 ml PRN Q15MIN PRN IV SEE COMMENTS; Start 01/26/21 at 18:15; Status UNV Ondansetron HCl (Zofran) 4 mg PRN Q6HRS PRN IVP NAUSEA/VOMITING Last administered on 01/28/21at 04:08; Start 01/26/21 at 18:15 Al Hydroxide/Mg Hydroxide (Mylanta Plus Xs) 30 ml PRN Q3HRS PRN PO HEARTBURN / GAS; Start 01/26/21 at 18:15 Calcium Carbonate/ Glycine (Tums) 500 mg PRN Q3HRS PRN PO UPSET STOMACH; Start 01/26/21 at 18:15 Zolpidem Tartrate (Ambien) 5 mg PRN QHS PRN PO INSOMNIA, MAY REPEAT IN 1HR Last administered on 01/27/21at 23:55; Start 01/26/21 at 18:15 Morphine Sulfate (Morphine Sulfate) 2 mg PRN Q1HR PRN IV MODERATE PAIN Last administered on 01/26/21at 19:27; Start 01/26/21 at 18:15; Stop 01/28/21 at 09:01; Status DC Acetaminophen/ Hydrocodone Bitart (Lortab 5/325) 1 tab PRN Q4HRS PRN PO MILD PAIN 1-3; Start 01/26/21 at 18:15; Stop 01/28/21 at 09:01; Status DC Acetaminophen/ Hydrocodone Bitart (Lortab 5/325) 2 tab PRN Q4HRS PRN PO MODERATE PAIN Last administered on 01/28/21at 04:39; Start 01/26/21 at 18:15; Stop 01/28/21 at 09:01; Status DC Hydromorphone HCl (Dilaudid) 2 mg PRN Q4HRS PRN PO MODERATE PAIN, 2ND CHOICE; Start 01/26/21 at 18:15; Stop 01/28/21 at 09:01; Status DC Hydromorphone HCl (Dilaudid) 4 mg PRN Q4HRS PRN PO SEVERE PAIN; Start 01/26/21 at 18:15; Stop 01/28/21 at 09:01; Status DC Acetaminophen (Tylenol) 650 mg PRN Q6HRS PRN PO Headaches, Temp > 101.5F Last administered on 01/30/21at 11:15; Start 01/26/21 at 18:15 Magnesium Hydroxide (Milk Of Magnesia) 2,400 mg PRN Q12HR PRN PO CONSTIPATION (1st Choice) Last administered on 01/27/21at 16:39; Start 01/26/21 at 18:15 Bisacodyl (Dulcolax Supp) 10 mg PRN DAILY PRN [place] CONSTIPATION; Start 01/26/21 at 18:15 Heparin Sodium (Porcine) (Heparin Sodium) 5,000 unit Q8HRS SQ Last administered on 02/04/21at 05:37; Start 01/26/21 at 22:00 Hydromorphone HCl (Dilaudid) 2 mg PRN Q4HRS PRN IVP SEVERE PAIN Last administered on 01/27/21 09:37; Start 01/26/21 at 18:15; Stop 01/28/21 at 09:01; Status DC Lorazepam (Ativan Inj) 2 mg PRN Q4HRS PRN IVP ANXIETY / AGITATION Last administered on 02/03/21at 23:49; Start 01/26/21 at 18:15 Trazodone HCl (Desyrel) 75 mg HS PO Last administered on 02/03/21at 20:35; Start 01/26/21 at 21:30 Clonazepam (KlonoPIN) 1 mg TID PO Last administered on 01/27/21at 09:32; Start 01/26/21 at 21:30; Stop 01/27/21 at 13:36; Status DC Cephalexin HCl (Keflex) 500 mg TID PO Last administered on 01/30/21at 09:33; Start 01/27/21 at 09:00; Stop 01/30/21 at 13:51; Status DC Lactobacillus Rhamnosus (Culturelle) 1 cap BID PO Last administered on 02/04/21at 08:00; Start 01/27/21 at 21:00 Clonazepam (KlonoPIN) 1 mg PRN TID PRN PO anxiety Last administered on 02/03/21at 20:39; Start 01/27/21 at 13:45 Gadoterate Meglumine (Clariscan) 17 ml 1X ONCE IVP Last administered on 01/27/21at 14:54; Start 01/27/21 at 13:45; Stop 01/27/21 at 13:49; Status DC Senna/Docusate Sodium (Senna Plus) 1 tab BID PO Last administered on 02/04/21at 08:00; Start 01/27/21 at 21:00 Polyethylene Glycol (miraLAX PACKET) 17 gm DAILY PO Last administered on 02/04/21at 08:00; Start 01/28/21 at 09:00 Bisacodyl (Dulcolax Tab) 10 mg PRN DAILY PRN PO CONSTIPATION (2nd Choice) Last administered on 01/27/21at 16:40; Start 01/27/21 at 16:15 Tamsulosin HCl (Flomax) 0.4 mg QHS PO Last administered on 02/03/21at 20:35; Start 01/27/21 at 21:00 Polyethylene Glycol (miraLAX PACKET) 17 gm DAILY PO ; Start 01/27/21 at 16:15; Status UNV Senna/Docusate Sodium (Senna Plus) 1 tab DAILY PO ; Start 01/27/21 at 16:15; Status UNV Gabapentin (Neurontin) 300 mg QID PO Last administered on 02/04/21at 08:00; Start 01/28/21 at 09:30 Levothyroxine Sodium (Synthroid) 200 mcg DAILY06 PO Last administered on 02/04/21at 05:32; Start 01/28/21 at 09:30 Methadone HCl (Dolophine) 10 mg TID PO Last administered on 02/04/21at 08:00; Start 01/28/21 at 09:00 Daptomycin 450 mg/ Sodium Chloride 50 ml @ 100 mls/hr Q24H IV Last administered on 02/03/21at 12:30; Start 01/28/21 at 12:30 Meropenem 500 mg/ Sodium Chloride 50 ml @ 100 mls/hr Q8HRS IV Last ad ministered on 01/30/21at 06:04; Start 01/28/21 at 14:00; Stop 01/30/21 at 15:56; Status DC Lidocaine HCl (Buffered Lidocaine 1%) 3 ml STK-MED ONCE .ROUTE ; Start 01/28/21 at 14:32; Stop 01/28/21 at 14:33; Status DC Lidocaine HCl (Buffered Lidocaine 1%) 3 ml 1X ONCE INJ Last administered on 01/28/21at 15:22; Start 01/28/21 at 15:15; Stop 01/28/21 at 15:16; Status DC Cyanocobalamin (Vitamin B-12 Inj) 1,000 mcg 1X ONCE IM Last administered on 01/29/21at 09:28; Start 01/29/21 at 07:30; Stop 01/29/21 at 07:31; Status DC Meropenem 500 mg/ Sodium Chloride 50 ml @ 100 mls/hr Q6HRS IV Last administered on 02/04/21at 05:32; Start 01/30/21 at 18:00 Micafungin Sodium 100 mg/Dextrose 100 ml @ 100 mls/hr Q24H IV Last administered on 02/03/21at 17:19; Start 01/30/21 at 17:00 Pantoprazole Sodium (PROTONIX VIAL for IV PUSH) 40 mg DAILYAC IVP Last administered on 02/02/21at 09:25; Start 02/02/21 at 07:30; Stop 02/02/21 at 10:20; Status DC Pantoprazole Sodium (Protonix) 40 mg DAILYAC PO Last administered on 02/04/21at 05:32; Start 02/03/21 at 07:30 Active Scripts Active Percocet 5-325 Mg Tablet (Oxycodone/Acetaminophen) 1 Each Tablet 1 Tab PO PRN Q6HRS PRN 5 Days Metformin Hcl Er (Metformin Hcl) 500 Mg Tab.er.24h 500 Mg PO DAILYWBKFT 30 Days Reported Klonopin (Clonazepam) 1 Mg Tablet 1 Tab PO TID Trazodone Hcl 100 Mg Tablet 75 Mg PO HS Keflex (Cephalexin) 750 Mg Capsule 500 Mg PO TID Ferrous Sulfate 325 Mg Tablet 1 Tab PO BID Cyclobenzaprine Hcl 10 Mg Tablet 10 Mg PO HS Nifedipine Er (Nifedipine) 30 Mg Tablet.er 30 Mg PO HS Atenolol 50 Mg Tablet 50 Mg PO DAILY Losartan Potassium 100 Mg Tablet 100 Mg PO DAILY16 Colace (Docusate Sodium) 100 Mg Capsule 100 Mg PO DAILY Gabapentin 600 Mg Tablet 1,800 Mg PO BID Levothyroxine Sodium 200 Mcg Tablet 200 Mcg PO DAILYAC Hydrochlorothiazide Tablet (Hydrochlorothiazide) 25 Mg Tablet 50 Mg PO DAILY Vitals/I & O Vital Sign - Last 24 Hours 02/03/21 02/03/21 02/03/21 02/03/21 11:00 15:00 19:12 20:00 Temp 98.5 98.9 98.1 98.5 98.9 98.1 Pulse 103 85 84 Resp 17 18 16 B/P (MAP) 110/74 (86) 141/74 (96) 152/89 (110) Pulse Ox 94 94 94 O2 Delivery Room Air Room Air Room Air Room Air 02/03/21 02/04/21 02/04/21 02/04/21 22:12 02:06 06:55 07:46 Temp 98.4 98.2 98.5 98.4 98.2 98.5 Pulse 76 83 75 Resp 16 16 18 B/P (MAP) 154/82 (106) 144/82 (102) 152/83 (106) Pulse Ox 96 91 90 O2 Delivery Room Air Room Air Room Air Room Air Intake and Output 02/03/21 02/03/21 02/04/21 15:00 23:00 07:00 Intake Total 240 ml 600 ml 550 ml Output Total 350 ml 675 ml Balance -110 ml -75 ml 550 ml Justifications for Admission Other Justification Lumbar spinal stenosis concerning for cauda equina syndrome RENETTA HOWARD MD Feb 04, 2021 08:31
--- NOTE | 2021-02-04 09:53 | PDOC ---
PROGRESS NOTES Date of Service: DATE: 02/04/21 TIME: 09:53 Chief Complaint Chief Complaint impression L2-L5 spinal canal stenosis with urinary retention - retention more likely medication side effect. Cervical spine stenosis History osteomyelitis DM2 - sliding scale Normocytic anemia - s/p transfusion DENIES HX Colonoscopy but is poor historian Thrombocytopenia - hematology following Hypothyroidism Chronic pain Right total knee replacement History of femur fracture October 2020 osteomyelitis T11-12 - MRI changes in cervical and thoracic spine likely needs IV treatment Complete to near complete resolution of previously demonstrated epidural enhancement consistent with abscess throughout the and majority of the thoracic levels, consistent with interval treatment response. There is a new small enhancing ventral epidural collection measuring 2 mm in thickness at T1-T2 which is likely infectious given extensive adjacent marrow edema involving the posterior elements and surrounding soft tissues at C7-T1. There are new small peripherally enhancing fluid collections posterior to the facet joints at this level and within the left dorsal central canal which may be due to superinfected synovial cysts or abscesses. dilation of a segment of colon measuring up to 6.5 cm. / uncertain clinical significance, obstruction or focal ileus could have this appearance. Plan: Will resume his current antibiotic treatment Hemoglobin & hematocrit 8.8 and 25.6 respectively (11/16/2020); hemoglobin 7.1 and hematocrit 22.9 on admission. Will continue to monitor and transfuse as needed. Resume home medications FEN - Cardiac diet PPX - Heparin FULL CODE Dispo - inpatient for above HEME consult Continue dapto and meropenem , Cont Micafungin GI consult guiac stools CEA 37 min pt exam, chart review, > 50% of time spent with exam, chart review, pt care coordination Advance Care Planning: Total time spent [id number] with patient 16 minutes in discussion with goals of care, comfort care, end-of-life care, pain management, code status; patient names his (Radha Padilla) as surrogate decision-maker. History of Present Illness History of Present Illness impression Mr Byrnes is a 61-year-old male PMHx hypothyroidism, chronic pain, hernia, back surgery, right total knee replacement, and history of femur fracture and October 2020 osteomyelitis s/p cervical, thoracic, and lumbar epidural abscess drainage who presents to the ED with complaints of urinary retention. Patient states he has not urinated in the past 2 days prior to admit with associated bladder distention. He was recently admitted on 11/02/2020 for spinal epidural abscess, paraspinal cervical abscess, and osteomyelitis. He states he is currently on an antibiotic 3 times daily, but cannot member the name of this antibiotic. CT lumbar spine obtained in the ED showed redemonstrated changes of discitis osteomyelitis at L3-L4 with at least moderate spinal canal stenosis at that level L2-L5. Coello catheter was placed in the ED with reportedly 1000 mL urine output. Patient states he feels significantly better after having Coello placed, but is also reports chronic right knee pain. He has had right knee pain over t his past 3 years since total knee replacement, but states his pain is worsened over the past 3 days causing him difficulty moving. States his knee is slightly more mobile after pain medication he received in the ED. Neurosurgery was consulted in the ED and requesting admission. Admitted patient for further medical management. 01/27: Afebrile. Discussed with neurosurgery and ID his recent MRI is actually improved. He discloses to me that prior to his complicated hospital stay he had actually been weaned down from 150 mg daily of methadone for chronic pain to 10 mg 3 times daily and has had trouble having anyone to prescribe methadone for him. He continues to ask for pain medication regularly. Discussed complications of urinary retention related to chronic opioid therapy. 01/28: Afebrile. Platelets still low normal still low. Coello out today start on methadone per PMR. MRI reviewed with ID and neurosurgery, given MRI findings and thoracic and cervical areas changed likely persistent infection. Voiding trial today. PICC inserted 01/29: Afebrile overnight. Hemoglobin dropped below 7. Pain better controlled on methadone. No residual on PVR. 1u PRBC with good effect 01/30: Afebrile. Hb dropped to 6.8 again. 11 unit of blood transfusing. He actually feels better on the methadone is a little bit stronger. No more urinary retention. Afebrile. Hb 7.9 posttransfusion. Platelets up to 108. Feeling improved. - L2-L5 spinal canal stenosis with urinary retention - retention more likely medication side effect. Cervical spine stenosis History osteomyelitis DM2 - sliding scale Normocytic anemia - s/p transfusion Thrombocytopenia - hematology following Hypothyroidism FEN - Cardiac diet PPX - Heparin FULL CODE Dispo - inpatient for above HEME consult Continue dapto and meropenem , Cont Micafungin 37 min pt exam, chart review, > 50% of time spent with exam, chart review, pt care coordination 6-16 L2-L5 spinal canal stenosis with urinary retention - retention more likely medication side effect. Cervical spine stenosis History osteomyelitis DM2 - sliding scale Normocytic anemia - s/p transfusion Thrombocytopenia - hematology following Hypothyroidism FEN - Cardiac diet PPX - Heparin FULL CODE Dispo - inpatient for above HEME consult Continue dapto and meropenem , Cont Micafungin d/w rn * 2 weeks Discharge Recommendations * [facility] Unit * * * 6-17 L2-L5 spinal canal stenosis with urinary retention - retention more likely medication side effect. Cervical spine stenosis History osteomyelitis DM2 - sliding scale Normocytic anemia - s/p transfusion Thrombocytopenia - hematology following Hypothyroidism FEN - Cardiac diet PPX - Heparin FULL CODE Dispo - inpatient for above HEME consult Continue dapto and meropenem , Cont Micafungin d/w rn * 2 weeks Discharge Recommendations * [facility] * * Meropenem versus Zosyn 13.5 g daily continuous infusion versus IV Invanz 1 g daily If Dapto is not an option, next choice would be IV dalbavancin 1500 mg q. weekly for 6 weeks Cont Micafungin while here Vitals Vitals Vital Signs Date Time Temp Pulse Resp B/P (MAP) Pulse Ox O2 Delivery O2 Flow Rate FiO2 02/04/21 07:46 Room Air 02/04/21 06:55 98.5 75 18 152/83 (106) 90 98.5 Physical Exam Physical Exam GENERAL: alert awake, sitting in bed appears comfortable HEENT: Normal conjunctivae. Oral cavity clear NECK: Supple. No JVP, no lymphadenopathy. LUNGS: Clear. HEART: S1, S2 regular. ABDOMEN: Soft, nontender. EXTREMITIES: No edema or cyanosis. Right knee wo redness/warmth/swelling. SKIN: No signs of gen rash. Groin yeast some better,dry flaky skin NEUROLOGIC: Alert, awake, and appropriate. MSK scar over cervical spine, lumbar spine healed some paraspinal pain in the low back, no dec in range of motion at neck RUE-PICC (01/28) clean General: Alert, Oriented X3, Cooperative, No acute distress Heart: Regular rate, Normal S1, Normal S2 Lungs: Clear Abdomen: Normal bowel sounds, Soft, No tenderness Extremities: No clubbing, No cyanosis Skin: No significant lesion Labs LABS Laboratory Tests Test 02/03/21 12:21 02/04/21 06:00 Stool Occult Blood Negative (NEG) White Blood Count 4.8 x10^3/uL (4.0-11.0) Red Blood Count 2.47 x10^6/uL (4.30-5.70) Hemoglobin 7.7 g/dL (13.0-17.5) Hematocrit 23.1 % (39.0-53.0) Mean Corpuscular Volume 94 fL (79-100) Mean Corpuscular Hemoglobin 31 pg (25-35) Mean Corpuscular Hemoglobin Concent 33 g/dL (31-37) Red Cell Distribution Width 15.1 % (11.5-14.5) Platelet Count 204 x10^3/uL (140-400) Neutrophils (%) (Auto) 53 % (31-73) Lymphocytes (%) (Auto) 34 % (24-48) Monocytes (%) (Auto) 7 % (0-9) Eosinophils (%) (Auto) 5 % (0-3) Basophils (%) (Auto) 1 % (0-3) Neutrophils # (Auto) 2.6 x10^3/uL (1.8-7.7) Lymphocytes # (Auto) 1.7 x10^3/uL (1.0-4.8) Monocytes # (Auto) 0.3 x10^3/uL (0.0-1.1) Eosinophils # (Auto) 0.2 x10^3/uL (0.0-0.7) Basophils # (Auto) 0.0 x10^3/uL (0.0-0.2) Sodium Level 146 mmol/L (136-145) Potassium Level 4.2 mmol/L (3.5-5.1) Chloride Level 108 mmol/L (98-107) Carbon Dioxide Level 31 mmol/L (21-32) Anion Gap 7 (6-14) Blood Urea Nitrogen 6 mg/dL (8-26) Creatinine 0.6 mg/dL (0.7-1.3) Estimated GFR (Cockcroft-Gault) 137.9 Glucose Level 81 mg/dL (70-99) Calcium Level 8.4 mg/dL (8.5-10.1) Assessment and Plan Assessmemt and Plan Problems Medical Problems: (1) Urinary retention Status: Acute Comment Review of Relevant I have reviewed the following items almas (where applicable) has been applied. Labs Laboratory Tests Test 02/03/21 12:21 02/04/21 06:00 Stool Occult Blood Negative (NEG) White Blood Count 4.8 x10^3/uL (4.0-11.0) Red Blood Count 2.47 x10^6/uL (4.30-5.70) Hemoglobin 7.7 g/dL (13.0-17.5) Hematocrit 23.1 % (39.0-53.0) Mean Corpuscular Volume 94 fL (79-100) Mean Corpuscular Hemoglobin 31 pg (25-35) Mean Corpuscular Hemoglobin Concent 33 g/dL (31-37) Red Cell Distribution Width 15.1 % (11.5-14.5) Platelet Count 204 x10^3/uL (140-400) Neutrophils (%) (Auto) 53 % (31-73) Lymphocytes (%) (Auto) 34 % (24-48) Monocytes (%) (Auto) 7 % (0-9) Eosinophils (%) (Auto) 5 % (0-3) Basophils (%) (Auto) 1 % (0-3) Neutrophils # (Auto) 2.6 x10^3/uL (1.8-7.7) Lymphocytes # (Auto) 1.7 x10^3/uL (1.0-4.8) Monocytes # (Auto) 0.3 x10^3/uL (0.0-1.1) Eosinophils # (Auto) 0.2 x10^3/uL (0.0-0.7) Basophils # (Auto) 0.0 x10^3/uL (0.0-0.2) Sodium Level 146 mmol/L (136-145) Potassium Level 4.2 mmol/L (3.5-5.1) Chloride Level 108 mmol/L (98-107) Carbon Dioxide Level 31 mmol/L (21-32) Anion Gap 7 (6-14) Blood Urea Nitrogen 6 mg/dL (8-26) Creatinine 0.6 mg/dL (0.7-1.3) Estimated GFR (Cockcroft-Gault) 137.9 Glucose Level 81 mg/dL (70-99) Calcium Level 8.4 mg/dL (8.5-10.1) Laboratory Tests Test 02/03/21 12:21 02/04/21 06:00 Stool Occult Blood Negative (NEG) White Blood Count 4.8 x10^3/uL (4.0-11.0) Red Blood Count 2.47 x10^6/uL (4.30-5.70) Hemoglobin 7.7 g/dL (13.0-17.5) Hematocrit 23.1 % (39.0-53.0) Mean Corpuscular Volume 94 fL (79-100) Mean Corpuscular Hemoglobin 31 pg (25-35) Mean Corpuscular Hemoglobin Concent 33 g/dL (31-37) Red Cell Distribution Width 15.1 % (11.5-14.5) Platelet Count 204 x10^3/uL (140-400) Neutrophils (%) (Auto) 53 % (31-73) Lymphocytes (%) (Auto) 34 % (24-48) Monocytes (%) (Auto) 7 % (0-9) Eosinophils (%) (Auto) 5 % (0-3) Basophils (%) (Auto) 1 % (0-3) Neutrophils # (Auto) 2.6 x10^3/uL (1.8-7.7) Lymphocytes # (Auto) 1.7 x10^3/uL (1.0-4.8) Monocytes # (Auto) 0.3 x10^3/uL (0.0-1.1) Eosinophils # (Auto) 0.2 x10^3/uL (0.0-0.7) Basophils # (Auto) 0.0 x10^3/uL (0.0-0.2) Sodium Level 146 mmol/L (136-145) Potassium Level 4.2 mmol/L (3.5-5.1) Chloride Level 108 mmol/L (98-107) Carbon Dioxide Level 31 mmol/L (21-32) Anion Gap 7 (6-14) Blood Urea Nitrogen 6 mg/dL (8-26) Creatinine 0.6 mg/dL (0.7-1.3) Estimated GFR (Cockcroft-Gault) 137.9 Glucose Level 81 mg/dL (70-99) Calcium Level 8.4 mg/dL (8.5-10.1) Microbiology 01/26/21 Urine Culture - Final, Complete Medications Current Medications Iohexol (Omnipaque 300 Mg/ml) 75 ml 1X ONCE IV Last administered on 01/26/21at 14:54; Start 01/26/21 at 14:30; Stop 01/26/21 at 14:31; Status DC Info (CONTRAST GIVEN -- Rx MONITORING) 1 each PRN DAILY PRN MC SEE COMMENTS; Start 01/26/21 at 14:30; Stop 01/28/21 at 14:29; Status DC Fentanyl Citrate (Fentanyl 2ml Vial) 50 mcg 1X ONCE IV Last administered on 01/26/21at 14:59; Start 01/26/21 at 14:30; Stop 01/26/21 at 14:31; Status DC Ondansetron HCl (Zofran) 4 mg 1X ONCE IV Last administered on 01/26/21at 14:59; Start 01/26/21 at 14:30; Stop 01/26/21 at 14:31; Status DC Insulin Human Lispro (HumaLOG) 0-7 UNITS TIDWMEALS SQ ; Start 01/27/21 at 08:00; Stop 01/29/21 at 11:43; Status DC Dextrose (Dextrose 50%-Water Syringe) 12.5 gm PRN Q15MIN PRN IV SEE COMMENTS; Start 01/26/21 at 18:15; Stop 01/29/21 at 11:43; Status DC Dextrose (Iv Dextrose 5%) 250 ml PRN Q15MIN PRN IV SEE COMMENTS; Start 01/26/21 at 18:15; Status UNV Ondansetron HCl (Zofran) 4 mg PRN Q6HRS PRN IVP NAUSEA/VOMITING Last administered on 01/28/21at 04:08; Start 01/26/21 at 18:15 Al Hydroxide/Mg Hydroxide (Mylanta Plus Xs) 30 ml PRN Q3HRS PRN PO HEARTBURN / GAS; Start 01/26/21 at 18:15 Calcium Carbonate/ Glycine (Tums) 500 mg PRN Q3HRS PRN PO UPSET STOMACH; Start 01/26/21 at 18:15 Zolpidem Tartrate (Ambien) 5 mg PRN QHS PRN PO INSOMNIA, MAY REPEAT IN 1HR Last administered on 01/27/21at 23:55; Start 01/26/21 at 18:15 Morphine Sulfate (Morphine Sulfate) 2 mg PRN Q1HR PRN IV MODERATE PAIN Last administered on 01/26/21at 19:27; Start 01/26/21 at 18:15; Stop 01/28/21 at 09:01; Status DC Acetaminophen/ Hydrocodone Bitart (Lortab 5/325) 1 tab PRN Q4HRS PRN PO MILD PAIN 1-3; Start 01/26/21 at 18:15; Stop 01/28/21 at 09:01; Status DC Acetaminophen/ Hydrocodone Bitart (Lortab 5/325) 2 tab PRN Q4HRS PRN PO MODERATE PAIN Last administered on 01/28/21at 04:39; Start 01/26/21 at 18:15; Stop 01/28/21 at 09:01; Status DC Hydromorphone HCl (Dilaudid) 2 mg PRN Q4HRS PRN PO MODERATE PAIN, 2ND CHOICE; Start 01/26/21 at 18:15; Stop 01/28/21 at 09:01; Status DC Hydromorphone HCl (Dilaudid) 4 mg PRN Q4HRS PRN PO SEVERE PAIN; Start 01/26/21 at 18:15; Stop 01/28/21 at 09:01; Status DC Acetaminophen (Tylenol) 650 mg PRN Q6HRS PRN PO Headaches, Temp > 101.5F Last administered on 01/30/21at 11:15; Start 01/26/21 at 18:15 Magnesium Hydroxide (Milk Of Magnesia) 2,400 mg PRN Q12HR PRN PO CONSTIPATION (1st Choice) Last administered on 01/27/21at 16:39; Start 01/26/21 at 18:15 Bisacodyl (Dulcolax Supp) 10 mg PRN DAILY PRN VA CONSTIPATION; Start 01/26/21 at 18:15 Heparin Sodium (Porcine) (Heparin Sodium) 5,000 unit Q8HRS SQ Last administered on 02/04/21at 05:37; Start 01/26/21 at 22:00 Hydromorphone HCl (Dilaudid) 2 mg PRN Q4HRS PRN IVP SEVERE PAIN Last administered on 01/27/21at 09:37; Start 01/26/21 at 18:15; Stop 01/28/21 at 09:01; Status DC Lorazepam (Ativan Inj) 2 mg PRN Q4HRS PRN IVP ANXIETY / AGITATION Last administered on 02/03/21 23:49; Start 01/26/21 at 18:15 Trazodone HCl (Desyrel) 75 mg HS PO Last administered on 02/03/21 20:35; Start 01/26/21 at 21:30 Clonazepam (KlonoPIN) 1 mg TID PO Last administered on 01/27/21at 09:32; Start 01/26/21 at 21:30; Stop 01/27/21 at 13:36; Status DC Cephalexin HCl (Keflex) 500 mg TID PO Last administered on 01/30/21 09:33; Start 01/27/21 at 09:00; Stop 01/30/21 at 13:51; Status DC Lactobacillus Rhamnosus (Culturelle) 1 cap BID PO Last administered on 02/04/21at 08:00; Start 01/27/21 at 21:00 Clonazepam (KlonoPIN) 1 mg PRN TID PRN PO anxiety Last administered on 02/03/21 20:39; Start 01/27/21 at 13:45 Gadoterate Meglumine (Clariscan) 17 ml 1X ONCE IVP Last administered on 01/27 14:54; Start 01/27/21 at 13:45; Stop 01/27/21 at 13:49; Status DC Senna/Docusate Sodium (Senna Plus) 1 tab BID PO Last administered on 02/04/21at 08:00; Start 01/27/21 at 21:00 Polyethylene Glycol (miraLAX PACKET) 17 gm DAILY PO Last administered on 08:00; Start 01/28/21 at 09:00 Bisacodyl (Dulcolax Tab) 10 mg PRN DAILY PRN PO CONSTIPATION (2nd Choice) Last administered on 01/27/21at 16:40; Start 01/27/21 at 16:15 Tamsulosin HCl (Flomax) 0.4 mg QHS PO Last administered on 02/03/21 20:35; Start 01/27/21 at 21:00 Polyethylene Glycol (miraLAX PACKET) 17 gm DAILY PO ; Start 01/27/21 at 16:15; Status UNV Senna/Docusate Sodium (Senna Plus) 1 tab DAILY PO ; Start 01/27/21 at 16:15; Status UNV Gabapentin (Neurontin) 300 mg QID PO Last administered on 02/04/21at 08:00; Start 01/28/21 at 09:30 Levothyroxine Sodium (Synthroid) 200 mcg DAILY06 PO Last administered on 02/04/21at 05:32; Start 01/28/21 at 09:30 Methadone HCl (Dolophine) 10 mg TID PO Last administered on 02/04/21at 08:00; Start 01/28/21 at 09:00 Daptomycin 450 mg/ Sodium Chloride 50 ml @ 100 mls/hr Q24H IV Last administered on 02/03/21at 12:30; Start 01/28/21 at 12:30 Meropenem 500 mg/ Sodium Chloride 50 ml @ 100 mls/hr Q8HRS IV Last administered on 01/30/21at 06:04; Start 01/28/21 at 14:00; Stop 01/30/21 at 15:56; Status DC Lidocaine HCl (Buffered Lidocaine 1%) 3 ml STK-MED ONCE .ROUTE ; Start 01/28/21 at 14:32; Stop 01/28/21 at 14:33; Status DC Lidocaine HCl (Buffered Lidocaine 1%) 3 ml 1X ONCE INJ Last administered on 01/28/21at 15:22; Start 01/28/21 at 15:15; Stop 01/28/21 at 15:16; Status DC Cyanocobalamin (Vitamin B-12 Inj) 1,000 mcg 1X ONCE IM Last administered on 01/29/21at 09:28; Start 01/29/21 at 07:30; Stop 01/29/21 at 07:31; Status DC Meropenem 500 mg/ Sodium Chloride 50 ml @ 100 mls/hr Q6HRS IV Last administered on 02/04/21at 05:32; Start 01/30/21 at 18:00 Micafungin Sodium 100 mg/Dextrose 100 ml @ 100 mls/hr Q24H IV Last administered on 02/03/21at 17:19; Start 01/30/21 at 17:00 Pantoprazole Sodium (PROTONIX VIAL for IV PUSH) 40 mg DAILYAC IVP Last administered on 02/02/21at 09:25; Start 02/02/21 at 07:30; Stop 02/02/21 at 10:20; Status DC Pantoprazole Sodium (Protonix) 40 mg DAILYAC PO Last administered on 02/04/21at 05:32; Start 02/03/21 at 07:30 Active Scripts Active Percocet 5-325 Mg Tablet (Oxycodone/Acetaminophen) 1 Each Tablet 1 Tab PO PRN Q6HRS PRN 5 Days Metformin Hcl Er (Metformin Hcl) 500 Mg Tab.er.24h 500 Mg PO DAILYWBKFT 30 Days Reported Klonopin (Clonazepam) 1 Mg Tablet 1 Tab PO TID Trazodone Hcl 100 Mg Tablet 75 Mg PO HS Keflex (Cephalexin) 750 Mg Capsule 500 Mg PO TID Ferrous Sulfate 325 Mg Tablet 1 Tab PO BID Cyclobenzaprine Hcl 10 Mg Tablet 10 Mg PO HS Nifedipine Er (Nifedipine) 30 Mg Tablet.er 30 Mg PO HS Atenolol 50 Mg Tablet 50 Mg PO DAILY Losartan Potassium 100 Mg Tablet 100 Mg PO DAILY16 Colace (Docusate Sodium) 100 Mg Capsule 100 Mg PO DAILY Gabapentin 600 Mg Tablet 1,800 Mg PO BID Levothyroxine Sodium 200 Mcg Tablet 200 Mcg PO DAILYAC Hydrochlorothiazide Tablet (Hydrochlorothiazide) 25 Mg Tablet 50 Mg PO DAILY Vitals/I & O Vital Sign - Last 24 Hours 02/03/21 02/03/21 02/03/21 02/03/21 11:00 15:00 19:12 20:00 Temp 98.5 98.9 98.1 98.5 98.9 98.1 Pulse 103 85 84 Resp 18 16 B/P (MAP) 110/74 (86) 141/74 (96) 152/89 (110) Pulse Ox 94 94 94 O2 Delivery Room Air Room Air Room Air Room Air 02/03/21 02/04/21 02/04/21 02/04/21 22:12 02:06 06:55 07:46 Temp 98.4 98.2 98.5 98.4 98.2 98.5 Pulse 76 83 75 Resp 16 16 18 B/P (MAP) 154/82 (106) 144/82 (102) 152/83 (106) Pulse Ox 96 91 90 O2 Delivery Room Air Room Air Room Air Room Air Intake and Output 02/03/21 02/03/21 02/04/21 15:00 23:00 07:00 Intake Total 240 ml 600 ml 550 ml Output Total 350 ml 675 ml Balance -110 ml -75 ml 550 ml Justicifation of Admission Dx: Justifications for Admission: Justification of Admission Dx: Yes KEITH CHIN MD Feb 04, 2021 09:53
--- NOTE | 2021-02-04 10:11 | PDOC ---
Infectious Disease Note Subjective: Subjective Patient complains of back pain which comes and goes Ambulates with walker Denies difficulty urinating. No loss of bowel/bladder control Denies fever/chills/N/V/D/rash Tolerating po intake well Vital Signs: Vital Signs Vital Signs Date Time Temp Pulse Resp B/P (MAP) Pulse Ox O2 Delivery O2 Flow Rate FiO2 02/04/21 07:46 Room Air 02/04/21 06:55 98.5 75 18 152/83 (106) 90 98.5 Physical Exam: PHYSICAL EXAM GENERAL: alert awake, sitting in bed appears comfortable HEENT: Normal conjunctivae. Oral cavity clear NECK: Supple. No JVP, no lymphadenopathy. LUNGS: Clear. HEART: S1, S2 regular. ABDOMEN: Soft, nontender. EXTREMITIES: No edema or cyanosis. Right knee wo redness/warmth/swelling. SKIN: No signs of gen rash. Groin yeast some better,dry flaky skin NEUROLOGIC: Alert, awake, and appropriate. MSK scar over cervical spine, lumbar spine healed some paraspinal pain in the low back, no dec in range of motion at neck RUE-PICC (01/28) clean Medications: Inpatient Meds: Medications reviewed. Labs: Lab Laboratory Tests Test 02/03/21 12:21 02/04/21 06:00 Stool Occult Blood Negative (NEG) White Blood Count 4.8 x10^3/uL (4.0-11.0) Red Blood Count 2.47 x10^6/uL (4.30-5.70) Hemoglobin 7.7 g/dL (13.0-17.5) Hematocrit 23.1 % (39.0-53.0) Mean Corpuscular Volume 94 fL (79-100) Mean Corpuscular Hemoglobin 31 pg (25-35) Mean Corpuscular Hemoglobin Concent 33 g/dL (31-37) Red Cell Distribution Width 15.1 % (11.5-14.5) Platelet Count 204 x10^3/uL (140-400) Neutrophils (%) (Auto) 53 % (31-73) Lymphocytes (%) (Auto) 34 % (24-48) Monocytes (%) (Auto) 7 % (0-9) Eosinophils (%) (Auto) 5 % (0-3) Basophils (%) (Auto) 1 % (0-3) Neutrophils # (Auto) 2.6 x10^3/uL (1.8-7.7) Lymphocytes # (Auto) 1.7 x10^3/uL (1.0-4.8) Monocytes # (Auto) 0.3 x10^3/uL (0.0-1.1) Eosinophils # (Auto) 0.2 x10^3/uL (0.0-0.7) Basophils # (Auto) 0.0 x10^3/uL (0.0-0.2) Sodium Level 146 mmol/L (136-145) Potassium Level 4.2 mmol/L (3.5-5.1) Chloride Level 108 mmol/L (98-107) Carbon Dioxide Level 31 mmol/L (21-32) Anion Gap 7 (6-14) Blood Urea Nitrogen 6 mg/dL (8-26) Creatinine 0.6 mg/dL (0.7-1.3) Estimated GFR (Cockcroft-Gault) 137.9 Glucose Level 81 mg/dL (70-99) Calcium Level 8.4 mg/dL (8.5-10.1) Objective: Assessment: Low Back pain, most likely is musculoskeletal. Abnormal MRI possible reactivation or new infection Urinary retention. UC 20K JATIN DUBLINIENSIS History of MSSA bacteremia and extensive spinal infection in October 2020. Pt was on keflex for a couple of months Hypertension. Anemia s/p PRBCs Yeast in groin Thrombocytopenia Elevated serum kappa and lambda Abn KUB Plan: Plan of Care C spine and T spine MRI noted, with new epidural and other collection, ?? post surgery changes, ? new infection or reactivation of infection pt clinically does not have any signs of infection of infection, sed rate 31 and crp not very high 2.1 no other clinical evidence for infection Dr. Bowie concerned about infection with the new changes so decision made to treat with a new full course of IV antibiotics. The area and the amount of fluid collection is not enough for us to be able to obtain the sample for cultures Placement is an issue per discussion with social service PICC line Continue dapto and meropenem for discharge for 6 weeks Social work patient is not eligible for rehab facility Patient is not eligible for outpatient Dapto and meropenem Other options Meropenem versus Zosyn 13.5 g daily continuous infusion versus IV Invanz 1 [address] If Dapto is not an option, next choice would be IV dalbavancin 1500 mg q. weekly for 6 weeks Cont Micafungin while here Monitor labs/temp Pain management per primary GI and hematology following Pt and OT as tolerated Discussed with social service Discussed with nursing staff CORNELIA CAMARILLO MD Feb 04, 2021 10:11
[2021-02-04 10:32] VITALS: BP 136/83
[2021-02-04] MEDS: DAPTOmycin (GENERIC) IVPB 450 MG in IV NORMAL SALINE 50ML 50 ML IV SCH (11:58)
--- NOTE | 2021-02-04 12:08 | NUR ---
[facility] following. Discussed with RN, pt needing nursing home IV abx, however cannot afford the hernandez of doing it at home, and cannot afford the copay for SNF. Discussed with pt whichever way it goes pt is having to pay. Pt agreeable to referral to a SNF facility which may be willing to also take him medicaid pending. Discussed options with pt, he would like referral sent to [facility]. [facility] phoned and faxed referral, awaiting acceptance decision. [facility] will continue to follow. Addendum: 02/04/21 at 1405 by FABIENNE ALBERTO Pt accepted at [facility], pending insurance auth. Angelic with [facility] is coming to visit with patient. [facility] will continue to follow.
--- NOTE | 2021-02-04 12:19 | PDOC ---
Date of Service: DATE: 02/04/21 TIME: 12:18 Objective: Objective: No GI concerns per nurse - he's visiting his in her room. Vital Signs: Vital Signs Date Time Temp Pulse Resp B/P (MAP) Pulse Ox O2 Delivery O2 Flow Rate FiO2 02/04/21 10:32 98.5 85 18 136/83 (100) 93 Room Air 98.5 Labs: Laboratory Tests Test 02/03/21 12:21 02/04/21 06:00 Stool Occult Blood Negative White Blood Count 4.8 x10^3/uL Red Blood Count 2.47 x10^6/uL Hemoglobin 7.7 g/dL Hematocrit 23.1 % Mean Corpuscular Volume 94 fL Mean Corpuscular Hemoglobin 31 pg Mean Corpuscular Hemoglobin Concent 33 g/dL Red Cell Distribution Width 15.1 % Platelet Count 204 x10^3/uL Neutrophils (%) (Auto) 53 % Lymphocytes (%) (Auto) 34 % Monocytes (%) (Auto) 7 % Eosinophils (%) (Auto) 5 % Basophils (%) (Auto) 1 % Neutrophils # (Auto) 2.6 x10^3/uL Lymphocytes # (Auto) 1.7 x10^3/uL Monocytes # (Auto) 0.3 x10^3/uL Eosinophils # (Auto) 0.2 x10^3/uL Basophils # (Auto) 0.0 x10^3/uL Sodium Level 146 mmol/L Potassium Level 4.2 mmol/L Chloride Level 108 mmol/L Carbon Dioxide Level 31 mmol/L Anion Gap 7 Blood Urea Nitrogen 6 mg/dL Creatinine 0.6 mg/dL Estimated GFR (Cockcroft-Gault) 137.9 Glucose Level 81 mg/dL Calcium Level 8.4 mg/dL PE: out of room A/P: Back pain, ?spinal infection Anemia, Hemoccult negative -- Stable GI-zepeda. Justicifation of Admission Dx: Justifications for Admission: Justification of Admission Dx: Yes LULA PACE Feb 04, 2021 12:19
[2021-02-04] MEDS ORDERED: oxyCODONE/APAP 5/325 1 TAB TABLET PO PRN (13:15)
[2021-02-04] MEDS: ATENOLOL 50 MG TABLET. PO SCH (14:19)
[2021-02-04] MEDS: metFORMIN XR 500 MG TAB.ER.24H PO SCH (14:19)
[2021-02-04] MEDS: DOCUSATE SODIUM 100 MG CAPSULE. PO SCH (14:19)
[2021-02-04] MEDS: hydroCHLOROthiazide 25 MG TABLET PO SCH (14:19)
[2021-02-04 14:33] VITALS: BP 141/86
[2021-02-04] MEDS: FERROUS SULFATE 325 MG TABLET. PO SCH (16:04)
[2021-02-04] MEDS: MICAFUNGIN 100 MG in IV DEXTROSE 5% 100ML 100 ML IV SCH (16:05)
[2021-02-04 19:00] VITALS: BP 138/77
[2021-02-04] MEDS: traZODone 50 MG TABLET. PO SCH (22:27)
[2021-02-04] MEDS: TAMSULOSIN 0.4 MG CAP.ER.24H. PO SCH (22:29)
[2021-02-04] MEDS: clonazePAM 0.5 MG TABLET PO PRN (22:36)
[2021-02-04 23:00] VITALS: BP 143/81
[2021-02-05] MEDS: MEROPENEM 500 MG in IV NORMAL SALINE 50ML 50 ML IV SCH ×4 (00:32→17:22)
[2021-02-05 03:00] VITALS: BP 146/80
[2021-02-05] MEDS: LEVOTHYROXINE 100 MCG TABLET PO SCH (05:39)
[2021-02-05] MEDS: PANTOPRAZOLE 40 MG TABLET.DR. PO SCH (05:39)
[2021-02-05] MEDS: HEPARIN for SUB-Q USE 5,000 UNIT/ML VIAL. SQ SCH ×3 (05:46→21:25)
[2021-02-05 07:00] VITALS: BP 140/71
[2021-02-05] MEDS: DOCUSATE SODIUM 100 MG CAPSULE. PO SCH (08:18)
[2021-02-05] MEDS: hydroCHLOROthiazide 25 MG TABLET PO SCH (08:18)
[2021-02-05] MEDS: metFORMIN XR 500 MG TAB.ER.24H PO SCH (08:18)
[2021-02-05] MEDS: GABAPENTIN 300 MG CAPSULE. PO SCH ×4 (08:18→21:16)
[2021-02-05] MEDS: FERROUS SULFATE 325 MG TABLET. PO SCH ×2 (08:18→17:21)
[2021-02-05] MEDS: SENNOSIDES/DOCUSATE 8.6/50MG TABLET. PO SCH ×2 (08:18→21:15)
[2021-02-05] MEDS: LACTOBACILLUS RHAMNOSUS GG 1 CAPSULE. PO SCH ×2 (08:18→21:00)
[2021-02-05] MEDS: METHADONE 10 MG TABLET. PO SCH ×3 (08:19→21:25)
[2021-02-05] MEDS: ATENOLOL 50 MG TABLET. PO SCH (08:19)
[2021-02-05] MEDS: POLYETHYLENE GLYCOL 3350 17 GM PACKET. PO SCH (08:19)
[2021-02-05] MEDS: clonazePAM 0.5 MG TABLET PO PRN ×2 (08:23→21:16)
--- NOTE | 2021-02-05 08:33 | PDOC ---
Infectious Disease Note Subjective: Subjective Patient basically feels the same Denies fever/chills/N/V/D/rash Tolerating po intake well Vital Signs: Vital Signs Vital Signs Date Time Temp Pulse Resp B/P (MAP) Pulse Ox O2 Delivery O2 Flow Rate FiO2 02/05/21 08:19 79 140/71 02/05/21 07:00 98.1 18 96 Room Air 98.1 Physical Exam: PHYSICAL EXAM GENERAL: alert awake, sitting in bed appears comfortable HEENT: Normal conjunctivae. Oral cavity clear NECK: Supple. No JVP, no lymphadenopathy. LUNGS: Clear. HEART: S1, S2 regular. ABDOMEN: Soft, nontender. EXTREMITIES: No edema or cyanosis. Right knee wo redness/warmth/swelling. SKIN: No signs of gen rash. Groin yeast some better,dry flaky skin NEUROLOGIC: Alert, awake, and appropriate. MSK scar over cervical spine, lumbar spine healed some paraspinal pain in the low back, no dec in range of motion at neck RUE-PICC (01/28) clean Medications: Inpatient Meds: Medications reviewed. Labs: Lab Laboratory Tests Test 02/04/21 12:38 SARS-CoV-2 Antigen (Rapid) Negative (NEGATIVE) Objective: Assessment: Low Back pain, most likely is musculoskeletal. Abnormal MRI possible belkis ctivation or new infection Urinary retention. UC 20K JATIN DUBLINIENSIS History of MSSA bacteremia and extensive spinal infection in October 2020. Pt was on keflex for a couple of months Hypertension. Anemia s/p PRBCs Yeast in groin Thrombocytopenia Elevated serum kappa and lambda Abn KUB Plan: Plan of Care C spine and T spine MRI noted, with new epidural and other collection, ?? post surgery changes, ? new infection or reactivation of infection pt clinically does not have any signs of infection of infection, sed rate 31 and crp not very high 2.1 no other clinical evidence for infection Dr. Bowie concerned about infection with the new changes so decision made to treat with a new full course of IV antibiotics. The area and the amount of fluid collection is not enough for us to be able to obtain the sample for cultures PICC line Continue dapto and meropenem for discharge for 6 weeks Patient is not eligible for above antibiotics as outpatient per discussion with social service due to insurance issues If Patient is not eligible for outpatient Dapto and meropenem Other options are Meropenem versus Zosyn 13.5 g daily continuous infusion versus IV Invanz 1 g daily If Dapto is not an option, next choice would be IV dalbavancin 1500 mg q. weekly Total duration will be at least 6 weeks Cont Micafungin while here, then DC Monitor labs/temp Pain management per primary GI and hematology following Pt and OT as tolerated F/U ID clinic on February 18 at 1;00 PM [phone] Discussed with social service Discussed with nursing staff CORNELIA CAMARILLO MD Feb 05, 2021 08:33
--- NOTE | 2021-02-05 09:15 | PDOC ---
PROGRESS NOTES Date of Service DATE: 02/05/21 TIME: 09:14 Subjective Subjective No new complaints. Objective Objective Vital Signs Date Time Temp Pulse Resp B/P (MAP) Pulse Ox O2 Delivery O2 Flow Rate FiO2 02/05/21 08:19 79 140/71 02/05/21 07:00 98.1 18 96 Room Air 98.1 01/30/21 11:00 2.0 Intake and Output 02/05/21 07:00 Intake Total 800 ml Output Total 575 ml Balance 225 ml Intake Oral 450 ml IV Total 350 ml Output Urine Total 575 ml # Voids 2 # Bowel Movements 1 Physical Exam Physical Exam He is alert,sitting in bedside wheel chair and seems to be comfortable. Assessment Assessment Problems Medical Problems: (1) Urinary retention Status: Acute Plan Plan of Care Agree with plans. Comment Review of Relevant I have reviewed the following items almas (where applicable) has been applied. Labs Laboratory Tests Test 02/03/21 12:21 02/04/21 06:00 02/04/21 12:38 Stool Occult Blood Negative (NEG) White Blood Count 4.8 x10^3/uL (4.0-11.0) Red Blood Count 2.47 x10^6/uL (4.30-5.70) Hemoglobin 7.7 g/dL (13.0-17.5) Hematocrit 23.1 % (39.0-53.0) Mean Corpuscular Volume 94 fL (79-100) Mean Corpuscular Hemoglobin 31 pg (25-35) Mean Corpuscular Hemoglobin Concent 33 g/dL (31-37) Red Cell Distribution Width 15.1 % (11.5-14.5) Platelet Count 204 x10^3/uL (140-400) Neutrophils (%) (Auto) 53 % (31-73) Lymphocytes (%) (Auto) 34 % (24-48) Monocytes (%) (Auto) 7 % (0-9) Eosinophils (%) (Auto) 5 % (0-3) Basophils (%) (Auto) 1 % (0-3) Neutrophils # (Auto) 2.6 x10^3/uL (1.8-7.7) Lymphocytes # (Auto) 1.7 x10^3/uL (1.0-4.8) Monocytes # (Auto) 0.3 x10^3/uL (0.0-1.1) Eosinophils # (Auto) 0.2 x10^3/uL (0.0-0.7) Basophils # (Auto) 0.0 x10^3/uL (0.0-0.2) Sodium Level 146 mmol/L (136-145) Potassium Level 4.2 mmol/L (3.5-5.1) Chloride Level 108 mmol/L (98-107) Carbon Dioxide Level 31 mmol/L (21-32) Anion Gap 7 (6-14) Blood Urea Nitrogen 6 mg/dL (8-26) Creatinine 0.6 mg/dL (0.7-1.3) Estimated GFR (Cockcroft-Gault) 137.9 Glucose Level 81 mg/dL (70-99) Calcium Level 8.4 mg/dL (8.5-10.1) SARS-CoV-2 Antigen (Rapid) Negative (NEGATIVE) Laboratory Tests Test 02/04/21 12:38 SARS-CoV-2 Antigen (Rapid) Negative (NEGATIVE) Microbiology 01/26/21 Urine Culture - Final, Complete Medications Current Medications Iohexol (Omnipaque 300 Mg/ml) 75 ml 1X ONCE IV Last administered on 01/26/21at 14:54; Start 01/26/21 at 14:30; Stop 01/26/21 at 14:31; Status DC Info (CONTRAST GIVEN -- Rx MONITORING) 1 each PRN DAILY PRN MC SEE COMMENTS; Start 01/26/21 at 14:30; Stop 01/28/21 at 14:29; Status DC Fentanyl Citrate (Fentanyl 2ml Vial) 50 mcg 1X ONCE IV Last administered on 01/26/21at 14:59; Start 01/26/21 at 14:30; Stop 01/26/21 at 14:31; Status DC Ondansetron HCl (Zofran) 4 mg 1X ONCE IV Last administered on 01/26/21at 14:59; Start 01/26/21 at 14:30; Stop 01/26/21 at 14:31; Status DC Insulin Human Lispro (HumaLOG) 0-7 UNITS TIDWMEALS SQ ; Start 01/27/21 at 08:00; Stop 01/29/21 at 11:43; Status DC Dextrose (Dextrose 50%-Water Syringe) 12.5 gm PRN Q15MIN PRN IV SEE COMMENTS; Start 01/26/21 at 18:15; Stop 01/29/21 at 11:43; Status DC Dextrose (Iv Dextrose 5%) 250 ml PRN Q15MIN PRN IV SEE COMMENTS; Start 01/26/21 at 18:15; Status UNV Ondansetron HCl (Zofran) 4 mg PRN Q6HRS PRN IVP NAUSEA/VOMITING Last administered on 01/28/21at 04:08; Start 01/26/21 at 18:15 Al Hydroxide/Mg Hydroxide (Mylanta Plus Xs) 30 ml PRN Q3HRS PRN PO HEARTBURN / GAS; Start 01/26/21 at 18:15 Calcium Carbonate/ Glycine (Tums) 500 mg PRN Q3HRS PRN PO UPSET STOMACH; Start 01/26/21 at 18:15 Zolpidem Tartrate (Ambien) 5 mg PRN QHS PRN PO INSOMNIA, MAY REPEAT IN 1HR Last administered on 01/27/21at 23:55; Start 01/26/21 at 18:15 Morphine Sulfate (Morphine Sulfate) 2 mg PRN Q1HR PRN IV MODERATE PAIN Last administered on 01/26/21at 19:27; Start 01/26/21 at 18:15; Stop 01/28/21 at 09:01; Status DC Acetaminophen/ Hydrocodone Bitart (Lortab 5/325) 1 tab PRN Q4HRS PRN PO MILD PAIN 1-3; Start 01/26/21 at 18:15; Stop 01/28/21 at 09:01; Status DC Acetaminophen/ Hydrocodone Bitart (Lortab 5/325) 2 tab PRN Q4HRS PRN PO MODERATE PAIN Last administered on 01/28/21at 04:39; Start 01/26/21 at 18:15; Stop 01/28/21 at 09:01; Status DC Hydromorphone HCl (Dilaudid) 2 mg PRN Q4HRS PRN PO MODERATE PAIN, 2ND CHOICE; Start 01/26/21 at 18:15; Stop 01/28/21 at 09:01; Status DC Hydromorphone HCl (Dilaudid) 4 mg PRN Q4HRS PRN PO SEVERE PAIN; Start 01/26/21 a t 18:15; Stop 01/28/21 at 09:01; Status DC Acetaminophen (Tylenol) 650 mg PRN Q6HRS PRN PO Headaches, Temp > 101.5F Last administered on 01/30/21at 11:15; Start 01/26/21 at 18:15 Magnesium Hydroxide (Milk Of Magnesia) 2,400 mg PRN Q12HR PRN PO CONSTIPATION (1st Choice) Last administered on 01/27/21at 16:39; Start 01/26/21 at 18:15 Bisacodyl (Dulcolax Supp) 10 mg PRN DAILY PRN [place] CONSTIPATION; Start 01/26/21 at 18:15 Heparin Sodium (Porcine) (Heparin Sodium) 5,000 unit Q8HRS SQ Last administered on 02/05/21 05:46; Start 01/26/21 at 22:00 Hydromorphone HCl (Dilaudid) 2 mg PRN Q4HRS PRN IVP SEVERE PAIN Last administered on 01/27/21 09:37; Start 01/26/21 at 18:15; Stop 01/28/21 at 09:01; Status DC Lorazepam (Ativan Inj) 2 mg PRN Q4HRS PRN IVP ANXIETY / AGITATION Last administered on 02/05/21at 00:34; Start 01/26/21 at 18:15 Trazodone HCl (Desyrel) 75 mg HS PO Last administered on 02/04/21at 22:27; Start 01/26/21 at 21:30 Clonazepam (KlonoPIN) 1 mg TID PO Last administered on 01/27/21at 09:32; Start 01/26/21 at 21:30; Stop 01/27/21 at 13:36; Status DC Cephalexin HCl (Keflex) 500 mg TID PO Last administered on 01/30/21 09:33; Start 01/27/21 at 09:00; Stop 01/30/21 at 13:51; Status DC Lactobacillus Rhamnosus (Culturelle) 1 cap BID PO Last administered on 02/05/21at 08:18; Start 01/27/21 at 21:00 Clonazepam (KlonoPIN) 1 mg PRN TID PRN PO anxiety Last administered on 02/05/21at 08:23; Start 01/27/21 at 13:45 Gadoterate Meglumine (Clariscan) 17 ml 1X ONCE IVP Last administered on 01/27/21at 14:54; Start 01/27/21 at 13:45; Stop 01/27/21 at 13:49; Status DC Senna/Docusate Sodium (Senna Plus) 1 tab BID PO Last administered on 02/05/21at 08:18; Start 01/27/21 at 21:00 Polyethylene Glycol (miraLAX PACKET) 17 gm DAILY PO Last administered on 02/04/21at 08:00; Start 01/28/21 at 09:00 Bisacodyl (Dulcolax Tab) 10 mg PRN DAILY PRN PO CONSTIPATION (2nd Choice) Last administered on 01/27/21at 16:40; Start 01/27/21 at 16:15 Tamsulosin HCl (Flomax) 0.4 mg QHS PO Last administered on 02/04/21at 22:29; Start 01/27/21 at 21:00 Polyethylene Glycol (miraLAX PACKET) 17 gm DAILY PO ; Start 01/27/21 at 16:15; Status UNV Senna/Docusate Sodium (Senna Plus) 1 tab DAILY PO ; Start 01/27/21 at 16:15; Status UNV Gabapentin (Neurontin) 300 mg QID PO Last administered on 02/05/21at 08:18; Start 01/28/21 at 09:30 Levothyroxine Sodium (Synthroid) 200 mcg DAILY06 PO Last administered on 02/05/21at 05:39; Start 01/28/21 at 09:30 Methadone HCl (Dolophine) 10 mg TID PO Last administered on 02/05/21at 08:19; Start 01/28/21 at 09:00 Daptomycin 450 mg/ Sodium Chloride 50 ml @ 100 mls/hr Q24H IV Last administered on 02/04/21at 11:58; Start 01/28/21 at 12:30 Meropenem 500 mg/ Sodium Chloride 50 ml @ 100 mls/hr Q8HRS IV Last administered on 01/30/21at 06:04; Start 01/28/21 at 14:00; Stop 01/30/21 at 15:56; Status DC Lidocaine HCl (Buffered Lidocaine 1%) 3 ml STK-MED ONCE .ROUTE ; Start 01/28/21 at 14:32; Stop 01/28/21 at 14:33; Status DC Lidocaine HCl (Buffered Lidocaine 1%) 3 ml 1X ONCE INJ Last administered on 01/28/21at 15:22; Start 01/28/21 at 15:15; Stop 01/28/21 at 15:16; Status DC Cyanocobalamin (Vitamin B-12 Inj) 1,000 mcg 1X ONCE IM Last administered on 01/29/21at 09:28; Start 01/29/21 at 07:30; Stop 01/29/21 at 07:31; Status DC Meropenem 500 mg/ Sodium Chloride 50 ml @ 100 mls/hr Q6HRS IV Last administered on 02/05/21at 05:39; Start 01/30/21 at 18:00 Micafungin Sodium 100 mg/Dextrose 100 ml @ 100 mls/hr Q24H IV Last administered on 02/04/21at 16:05; Start 01/30/21 at 17:00 Pantoprazole Sodium (PROTONIX VIAL for IV PUSH) 40 mg DAILYAC IVP Last administered on 02/02/21at 09:25; Start 02/02/21 at 07:30; Stop 02/02/21 at 10:20; Status DC Pantoprazole Sodium (Protonix) 40 mg DAILYAC PO Last administered on 02/05/21at 05:39; Start 02/03/21 at 07:30 Atenolol (Tenormin) 50 mg DAILY PO Last administered on 02/05/21at 08:19; Start 02/04/21 at 15:00 Docusate Sodium (Colace) 100 mg DAILY PO Last administered on 02/05/21at 08:18; Start 02/04/21 at 15:00 Ferrous Sulfate (Feosol) 325 mg BIDWMEALS PO Last administered on 02/05/21at 08:18; Start 02/04/21 at 17:00 Hydrochlorothiazide (Hydrodiuril) 50 mg DAILY PO Last administered on 02/05/21at 08:18; Start 02/04/21 at 15:00 Oxycodone/ Acetaminophen (Percocet 5/325) 1 tab PRN Q6HRS PRN PO PAIN; Start 02/04/21 at 13:15 Nifedipine (Procardia Xl) 30 mg DAILY PO Last administered on 02/05/21at 08:19; Start 02/04/21 at 15:00 Metformin HCl (Glucophage Xr) 500 mg DAILYWBKFT PO Last administered on 02/05/21at 08:18; Start 02/04/21 at 15:00 Active Scripts Active Percocet 5-325 Mg Tablet (Oxycodone/Acetaminophen) 1 Each Tablet 1 Tab PO PRN Q6HRS PRN 5 Days Metformin Hcl Er (Metformin Hcl) 500 Mg Tab.er.24h 500 Mg PO DAILYWBKFT 30 Days Reported Klonopin (Clonazepam) 1 Mg Tablet 1 Tab PO TID Trazodone Hcl 100 Mg Tablet 75 Mg PO HS Keflex (Cephalexin) 750 Mg Capsule 500 Mg PO TID Ferrous Sulfate 325 Mg Tablet 1 Tab PO BID Cyclobenzaprine Hcl 10 Mg Tablet 10 Mg PO HS Nifedipine Er (Nifedipine) 30 Mg Tablet.er 30 Mg PO HS Atenolol 50 Mg Tablet 50 Mg PO DAILY Losartan Potassium 100 Mg Tablet 100 Mg PO DAILY16 Colace (Docusate Sodium) 100 Mg Capsule 100 Mg PO DAILY Gabapentin 600 Mg Tablet 1,800 Mg PO BID Levothyroxine Sodium 200 Mcg Tablet 200 Mcg PO DAILYAC Hydrochlorothiazide Tablet (Hydrochlorothiazide) 25 Mg Tablet 50 Mg PO DAILY Vitals/I & O Vital Sign - Last 24 Hours 02/04/21 02/04/21 02/04/21 02/04/21 10:32 10:32 14:19 14:19 Temp 98.5 98.5 Pulse 85 85 85 Resp 18 B/P (MAP) 136/83 (100) 136/83 136/83 Pulse Ox 93 O2 Delivery Room Air 02/04/21 02/04/21 02/04/21 02/04/21 14:33 14:33 19:00 20:00 Temp 97.5 98.0 97.5 98.0 Pulse 100 76 Resp 18 16 B/P (MAP) 141/86 (104) 138/77 (97) Pulse Ox 91 95 O2 Delivery Room Air Room Air 02/04/21 02/05/21 02/05/21 02/05/21 23:00 03:00 07:00 08:19 Temp 98.4 99.1 98.1 98.4 99.1 98.1 Pulse 75 81 79 79 Resp 16 18 18 B/P (MAP) 143/81 (101) 146/80 (102) 140/71 (94) 140/71 Pulse Ox 94 93 96 O2 Delivery Room Air 02/05/21 08:19 Pulse 79 B/P (MAP) 140/71 Intake and Output 02/04/21 02/04/21 02/05/21 15:00 23:00 07:00 Intake Total 350 ml 450 ml Output Total 275 ml 300 ml Balance -275 ml 350 ml 150 ml Justifications for Admission Other Justification Lumbar spinal stenosis concerning for cauda equina syndrome RENETTA HOWARD MD Feb 05, 2021 09:15
--- NOTE | 2021-02-05 09:35 | PDOC ---
Date of Service: DATE: 02/05/21 TIME: 09:33 Objective: Objective: D/w nurse - no GI concerns, possible Dc later pending insurance. Vital Signs: Vital Signs Date Time Temp Pulse Resp B/P (MAP) Pulse Ox O2 Delivery O2 Flow Rate FiO2 02/05/21 08:19 79 140/71 02/05/21 07:00 98.1 18 96 Room Air 98.1 Labs: Laboratory Tests Test 02/04/21 12:38 SARS-CoV-2 Antigen (Rapid) Negative PE: GEN: NAD - asleep in chair holding cell phone LUNGS: room air ABD: non-distended NEURO/PSYCH: sleeping, not awakened A/P: Back pain, ?spinal infection Anemia, Hemoccult negative -- DC per primary. Justicifation of Admission Dx: Justifications for Admission: Justification of Admission Dx: Yes LULA PACE Feb 05, 2021 09:35
--- NOTE | 2021-02-05 10:01 | PDOC ---
PROGRESS NOTES Date of Service: DATE: 02/05/21 TIME: 10:01 Chief Complaint Chief Complaint impression L2-L5 spinal canal stenosis with urinary retention - retention more likely medication side effect. Cervical spine stenosis History osteomyelitis DM2 - sliding scale Normocytic anemia - s/p transfusion DENIES HX Colonoscopy but is poor historian Thrombocytopenia - hematology following Hypothyroidism Chronic pain Right total knee replacement History of femur fracture October 2020 osteomyelitis T11-12 - MRI changes in cervical and thoracic spine likely needs IV treatment Complete to near complete resolution of previously demonstrated epidural enhancement consistent with abscess throughout the and majority of the thoracic levels, consistent with interval treatment response. There is a new small enhancing ventral epidural collection measuring 2 mm in thickness at T1-T2 which is likely infectious given extensive adjacent marrow edema involving the posterior elements and surrounding soft tissues at C7-T1. There are new small peripherally enhancing fluid collections posterior to the facet joints at this level and within the left dorsal central canal which may be due to superinfected synovial cysts or abscesses. dilation of a segment of colon measuring up to 6.5 cm. / uncertain clinical significance, obstruction or focal ileus could have this appearance. Plan: Will resume his current antibiotic treatment Hemoglobin & hematocrit 8.8 and 25.6 respectively (11/16/2020); hemoglobin 7.1 and hematocrit 22.9 on admission. Will continue to monitor and transfuse as needed. Resume home medications FEN - Cardiac diet PPX - Heparin FULL CODE Dispo - inpatient for above HEME consult Continue dapto and meropenem , Cont Micafungin GI consult guiac stools CEA 37 min pt exam, chart review, > 50% of time spent with exam, chart review, pt care coordination Advance Care Planning: Total time spent [id number] with patient 16 minutes in discussion with goals of care, comfort care, end-of-life care, pain management, code status; patient names his (Radha Padilla) as surrogate decision-maker. History of Present Illness History of Present Illness impression Mr Byrnes is a 61-year-old male PMHx hypothyroidism, chronic pain, hernia, back surgery, right total knee replacement, and history of femur fracture and October 2020 osteomyelitis s/p cervical, thoracic, and lumbar epidural abscess drainage who presents to the ED with complaints of urinary retention. Patient states he has not urinated in the past 2 days prior to admit with associated bladder distention. He was recently admitted on 11/02/2020 for spinal epidural abscess, paraspinal cervical abscess, and osteomyelitis. He states he is currently on an antibiotic 3 times daily, but cannot member the name of this antibiotic. CT lumbar spine obtained in the ED showed redemonstrated changes of discitis osteomyelitis at L3-L4 with at least moderate spinal canal stenosis at that level L2-L5. Coello catheter was placed in the ED with reportedly 1000 mL urine output. Patient states he feels significantly better after having Coello placed, but is also reports chronic right knee pain. He has had right knee pain over t his past 3 years since total knee replacement, but states his pain is worsened over the past 3 days causing him difficulty moving. States his knee is slightly more mobile after pain medication he received in the ED. Neurosurgery was consulted in the ED and requesting admission. Admitted patient for further medical management. 01/27: Afebrile. Discussed with neurosurgery and ID his recent MRI is actually improved. He discloses to me that prior to his complicated hospital stay he had actually been weaned down from 150 mg daily of methadone for chronic pain to 10 mg 3 times daily and has had trouble having anyone to prescribe methadone for him. He continues to ask for pain medication regularly. Discussed complications of urinary retention related to chronic opioid therapy. 01/28: Afebrile. Platelets still low normal still low. Coello out today start on methadone per PMR. MRI reviewed with ID and neurosurgery, given MRI findings and thoracic and cervical areas changed likely persistent infection. Voiding trial today. PICC inserted 01/29: Afebrile overnight. Hemoglobin dropped below 7. Pain better controlled on methadone. No residual on PVR. 1u PRBC with good effect 01/30: Afebrile. Hb dropped to 6.8 again. 11 unit of blood transfusing. He actually feels better on the methadone is a little bit stronger. No more urinary retention. Afebrile. Hb 7.9 posttransfusion. Platelets up to 108. Feeling improved. - L2-L5 spinal canal stenosis with urinary retention - retention more likely medication side effect. Cervical spine stenosis History osteomyelitis DM2 - sliding scale Normocytic anemia - s/p transfusion Thrombocytopenia - hematology following Hypothyroidism FEN - Cardiac diet PPX - Heparin FULL CODE Dispo - inpatient for above HEME consult Continue dapto and meropenem , Cont Micafungin 37 min pt exam, chart review, > 50% of time spent with exam, chart review, pt care coordination 6-16 L2-L5 spinal canal stenosis with urinary retention - retention more likely medication side effect. Cervical spine stenosis History osteomyelitis DM2 - sliding scale Normocytic anemia - s/p transfusion Thrombocytopenia - hematology following Hypothyroidism FEN - Cardiac diet PPX - Heparin FULL CODE Dispo - inpatient for above HEME consult Continue dapto and meropenem , Cont Micafungin d/w rn * 2 weeks Discharge Recommendations * Usp Unit * * * 6-17 L2-L5 spinal canal stenosis with urinary retention - retention more likely medication side effect. Cervical spine stenosis History osteomyelitis DM2 - sliding scale Normocytic anemia - s/p transfusion Thrombocytopenia - hematology following Hypothyroidism FEN - Cardiac diet PPX - Heparin FULL CODE Dispo - inpatient for above HEME consult Continue dapto and meropenem , Cont Micafungin d/w rn * 2 weeks Discharge Recommendations * Usp Unit * * Meropenem versus Zosyn 13.5 g daily continuous infusion versus IV Invanz 1 g daily If Dapto is not an option, next choice would be IV dalbavancin 1500 mg q. weekly for 6 weeks Cont Micafungin while here 6-18 L2-L5 spinal canal stenosis with urinary retention - retention more likely medication side effect. Cervical spine stenosis History osteomyelitis DM2 - sliding scale Normocytic anemia - s/p transfusion Thrombocytopenia - hematology following Hypothyroidism FEN - Cardiac diet PPX - Heparin FULL CODE Dispo - inpatient for above HEME consult Continue dapto and meropenem , Cont Micafungin d/w rn Other options are Meropenem versus Zosyn 13.5 g daily continuous infusion versus IV Invanz 1 g daily If Dapto is not an option, next choice would be IV dalbavancin 1500 mg q. weekly Total duration will be at least 6 weeks * 2 weeks Discharge Recommendations * Usp Unit Meropenem versus Zosyn 13.5 g daily continuous infusion versus IV Invanz 1 g daily If Dapto is not an option, next choice would be IV dalbavancin 1500 mg q. weekly for 6 weeks Cont Micafungin while here Vitals Vitals Vital Signs Date Time Temp Pulse Resp B/P (MAP) Pulse Ox O2 Delivery O2 Flow Rate FiO2 02/05/21 08:19 79 140/71 02/05/21 08:00 Room Air 02/05/21 07:00 98.1 18 96 98.1 Physical Exam Physical Exam GENERAL: alert awake, sitting in bed appears comfortable HEENT: Normal conjunctivae. Oral cavity clear NECK: Supple. No JVP, no lymphadenopathy. LUNGS: Clear. HEART: S1, S2 regular. ABDOMEN: Soft, nontender. EXTREMITIES: No edema or cyanosis. Right knee wo redness/warmth/swelling. SKIN: No signs of gen rash. Groin yeast some better,dry flaky skin NEUROLOGIC: Alert, awake, and appropriate. MSK scar over cervical spine, lumbar spine healed some paraspinal pain in the low back, no dec in range of motion at neck RUE-PICC (01/28) clean General: Alert, Oriented X3, Cooperative, No acute distress Heart: Regular rate, Normal S1, Normal S2 Lungs: Clear Abdomen: Normal bowel sounds, Soft, No tenderness Extremities: No clubbing, No cyanosis Skin: No significant lesion Labs LABS Laboratory Tests Test 02/04/21 12:38 SARS-CoV-2 Antigen (Rapid) Negative (NEGATIVE) Assessment and Plan Assessmemt and Plan Problems Medical Problems: (1) Urinary retention Status: Acute Comment Review of Relevant I have reviewed the following items almas (where applicable) has been applied. Labs Laboratory Tests Test 02/03/21 12:21 02/04/21 06:00 02/04/21 12:38 Stool Occult Blood Negative (NEG) White Blood Count 4.8 x10^3/uL (4.0-11.0) Red Blood Count 2.47 x10^6/uL (4.30-5.70) Hemoglobin 7.7 g/dL (13.0-17.5) Hematocrit 23.1 % (39.0-53.0) Mean Corpuscular Volume 94 fL (79-100) Mean Corpuscular Hemoglobin 31 pg (25-35) Mean Corpuscular Hemoglobin Concent 33 g/dL (31-37) Red Cell Distribution Width 15.1 % (11.5-14.5) Platelet Count 204 x10^3/uL (140-400) Neutrophils (%) (Auto) 53 % (31-73) Lymphocytes (%) (Auto) 34 % (24-48) Monocytes (%) (Auto) 7 % (0-9) Eosinophils (%) (Auto) 5 % (0-3) Basophils (%) (Auto) 1 % (0-3) Neutrophils # (Auto) 2.6 x10^3/uL (1.8-7.7) Lymphocytes # (Auto) 1.7 x10^3/uL (1.0-4.8) Monocytes # (Auto) 0.3 x10^3/uL (0.0-1.1) Eosinophils # (Auto) 0.2 x10^3/uL (0.0-0.7) Basophils # (Auto) 0.0 x10^3/uL (0.0-0.2) Sodium Level 146 mmol/L (136-145) Potassium Level 4.2 mmol/L (3.5-5.1) Chloride Level 108 mmol/L (98-107) Carbon Dioxide Level 31 mmol/L (21-32) Anion Gap 7 (6-14) Blood Urea Nitrogen 6 mg/dL (8-26) Creatinine 0.6 mg/dL (0.7-1.3) Estimated GFR (Cockcroft-Gault) 137.9 Glucose Level 81 mg/dL (70-99) Calcium Level 8.4 mg/dL (8.5-10.1) SARS-CoV-2 Antigen (Rapid) Negative (NEGATIVE) Laboratory Tests Test 02/04/21 12:38 SARS-CoV-2 Antigen (Rapid) Negative (NEGATIVE) Microbiology 01/26/21 Urine Culture - Final, Complete Medications Current Medications Iohexol (Omnipaque 300 Mg/ml) 75 ml 1X ONCE IV Last administered on 01/26/21at 14:54; Start 01/26/21 at 14:30; Stop 01/26/21 at 14:31; Status DC Info (CONTRAST GIVEN -- Rx MONITORING) 1 each PRN DAILY PRN MC SEE COMMENTS; Start 01/26/21 at 14:30; Stop 01/28/21 at 14:29; Status DC Fentanyl Citrate (Fentanyl 2ml Vial) 50 mcg 1X ONCE IV Last administered on 01/26/21at 14:59; Start 01/26/21 at 14:30; Stop 01/26/21 at 14:31; Status DC Ondansetron HCl (Zofran) 4 mg 1X ONCE IV Last administered on 01/26/21at 14:59; Start 01/26/21 at 14:30; Stop 01/26/21 at 14:31; Status DC Insulin Human Lispro (HumaLOG) 0-7 UNITS TIDWMEALS SQ ; Start 01/27/21 at 08:00; Stop 01/29/21 at 11:43; Status DC Dextrose (Dextrose 50%-Water Syringe) 12.5 gm PRN Q15MIN PRN IV SEE COMMENTS; Start 01/26/21 at 18:15; Stop 01/29/21 at 11:43; Status DC Dextrose (Iv Dextrose 5%) 250 ml PRN Q15MIN PRN IV SEE COMMENTS; Start 01/26/21 at 18:15; Status UNV Ondansetron HCl (Zofran) 4 mg PRN Q6HRS PRN IVP NAUSEA/VOMITING Last administered on 01/28/21at 04:08; Start 01/26/21 at 18:15 Al Hydroxide/Mg Hydroxide (Mylanta Plus Xs) 30 ml PRN Q3HRS PRN PO HEARTBURN / GAS; Start 01/26/21 at 18:15 Calcium Carbonate/ Glycine (Tums) 500 mg PRN Q3HRS PRN PO UPSET STOMACH; Start 01/26/21 at 18:15 Zolpidem Tartrate (Ambien) 5 mg PRN QHS PRN PO INSOMNIA, MAY REPEAT IN 1HR Last administered on 01/27/21at 23:55; Start 01/26/21 at 18:15 Morphine Sulfate (Morphine Sulfate) 2 mg PRN Q1HR PRN IV MODERATE PAIN Last administered on 01/26/21at 19:27; Start 01/26/21 at 18:15; Stop 01/28/21 at 09:01; Status DC Acetaminophen/ Hydrocodone Bitart (Lortab 5/325) 1 tab PRN Q4HRS PRN PO MILD PAIN 1-3; Start 01/26/21 at 18:15; Stop 01/28/21 at 09:01; Status DC Acetaminophen/ Hydrocodone Bitart (Lortab 5/325) 2 tab PRN Q4HRS PRN PO MODERATE PAIN Last administered on 01/28/21at 04:39; Start 01/26/21 at 18:15; Stop 01/28/21 at 09:01; Status DC Hydromorphone HCl (Dilaudid) 2 mg PRN Q4HRS PRN PO MODERATE PAIN, 2ND CHOICE; Start 01/26/21 at 18:15; Stop 01/28/21 at 09:01; Status DC Hydromorphone HCl (Dilaudid) 4 mg PRN Q4HRS PRN PO SEVERE PAIN; Start 01/26/21 at 18:15; Stop 01/28/21 at 09:01; Status DC Acetaminophen (Tylenol) 650 mg PRN Q6HRS PRN PO Headaches, Temp > 101.5F Last administered on 01/30/21at 11:15; Start 01/26/21 at 18:15 Magnesium Hydroxide (Milk Of Magnesia) 2,400 mg PRN Q12HR PRN PO CONSTIPATION (1st Choice) Last administered on 01/27/21at 16:39; Start 01/26/21 at 18:15 Bisacodyl (Dulcolax Supp) 10 mg PRN DAILY PRN MS CONSTIPATION; Start 01/26/21 at 18:15 Heparin Sodium (Porcine) (Heparin Sodium) 5,000 unit Q8HRS SQ Last administered on 02/05/21at 05:46; Start 01/26/21 at 22:00 Hydromorphone HCl (Dilaudid) 2 mg PRN Q4HRS PRN IVP SEVERE PAIN Last administered on 01/27/21at 09:37; Start 01/26/21 at 18:15; Stop 01/28/21 at 09:01; Status DC Lorazepam (Ativan Inj) 2 mg PRN Q4HRS PRN IVP ANXIETY / AGITATION Last administered on 02/05/21at 00:34; Start 01/26/21 at 18:15 Trazodone HCl (Desyrel) 75 mg HS PO Last administered on 02/04/21at 22:27; Start 01/26/21 at 21:30 Clonazepam (KlonoPIN) 1 mg TID PO Last administered on 01/27/21at 09:32; Start 01/26/21 at 21:30; Stop 01/27/21 at 13:36; Status DC Cephalexin HCl (Keflex) 500 mg TID PO Last administered on 01/30/21at 09:33; Start 01/27/21 at 09:00; Stop 01/30/21 at 13:51; Status DC Lactobacillus Rhamnosus (Culturelle) 1 cap BID PO Last administered on 02/05/21at 08:18; Start 01/27/21 at 21:00 Clonazepam (KlonoPIN) 1 mg PRN TID PRN PO anxiety Last administered on 02/05/21 08:23; Start 01/27/21 at 13:45 Gadoterate Meglumine (Clariscan) 17 ml 1X ONCE IVP Last administered on 01/27/21at 14:54; Start 01/27/21 at 13:45; Stop 01/27/21 at 13:49; Status DC Senna/Docusate Sodium (Senna Plus) 1 tab BID PO Last administered on 02/05/21 08:18; Start 01/27/21 at 21:00 Polyethylene Glycol (miraLAX PACKET) 17 gm DAILY PO Last administered on 02/04/21at 08:00; Start 01/28/21 at 09:00 Bisacodyl (Dulcolax Tab) 10 mg PRN DAILY PRN PO CONSTIPATION (2nd Choice) Last administered on 01/27/21at 16:40; Start 01/27/21 at 16:15 Tamsulosin HCl (Flomax) 0.4 mg QHS PO Last administered on 02/04/21at 22:29; Start 01/27/21 at 21:00 Polyethylene Glycol (miraLAX PACKET) 17 gm DAILY PO ; Start 01/27/21 at 16:15; Status UNV Senna/Docusate Sodium (Senna Plus) 1 tab DAILY PO ; Start 01/27/21 at 16:15; St atus UNV Gabapentin (Neurontin) 300 mg QID PO Last administered on 02/05/21at 08:18; Start 01/28/21 at 09:30 Levothyroxine Sodium (Synthroid) 200 mcg DAILY06 PO Last administered on 02/05/21at 05:39; Start 01/28/21 at 09:30 Methadone HCl (Dolophine) 10 mg TID PO Last administered on 02/05/21at 08:19; Start 01/28/21 at 09:00 Daptomycin 450 mg/ Sodium Chloride 50 ml @ 100 mls/hr Q24H IV Last administered on 02/04/21at 11:58; Start 01/28/21 at 12:30 Meropenem 500 mg/ Sodium Chloride 50 ml @ 100 mls/hr Q8HRS IV Last administered on 01/30/21at 06:04; Start 01/28/21 at 14:00; Stop 01/30/21 at 15:56; Status DC Lidocaine HCl (Buffered Lidocaine 1%) 3 ml STK-MED ONCE .ROUTE ; Start 01/28/21 at 14:32; Stop 01/28/21 at 14:33; Status DC Lidocaine HCl (Buffered Lidocaine 1%) 3 ml 1X ONCE INJ Last administered on 01/28/21at 15:22; Start 01/28/21 at 15:15; Stop 01/28/21 at 15:16; Status DC Cyanocobalamin (Vitamin B-12 Inj) 1,000 mcg 1X ONCE IM Last administered on 01/29/21at 09:28; Start 01/29/21 at 07:30; Stop 01/29/21 at 07:31; Status DC Meropenem 500 mg/ Sodium Chloride 50 ml @ 100 mls/hr Q6HRS IV Last administered on 02/05/21at 05:39; Start 01/30/21 at 18:00 Micafungin Sodium 100 mg/Dextrose 100 ml @ 100 mls/hr Q24H IV Last administered on 02/04/21at 16:05; Start 01/30/21 at 17:00 Pantoprazole Sodium (PROTONIX VIAL for IV PUSH) 40 mg DAILYAC IVP Last administered on 02/02/21at 09:25; Start 02/02/21 at 07:30; Stop 02/02/21 at 10:20; Status DC Pantoprazole Sodium (Protonix) 40 mg DAILYAC PO Last administered on 02/05/21at 05:39; Start 02/03/21 at 07:30 Atenolol (Tenormin) 50 mg DAILY PO Last administered on 02/05/21at 08:19; Start 02/04/21 at 15:00 Docusate Sodium (Colace) 100 mg DAILY PO Last administered on 02/05/21at 08:18; Start 02/04/21 at 15:00 Ferrous Sulfate (Feosol) 325 mg BIDWMEALS PO Last administered on 02/05/21at 08:18; Start 02/04/21 at 17:00 Hydrochlorothiazide (Hydrodiuril) 50 mg DAILY PO Last administered on 02/05/21at 08:18; Start 02/04/21 at 15:00 Oxycodone/ Acetaminophen (Percocet 5/325) 1 tab PRN Q6HRS PRN PO PAIN; Start 02/04/21 at 13:15 Nifedipine (Procardia Xl) 30 mg DAILY PO Last administered on 02/05/21at 08:19; Start 02/04/21 at 15:00 Metformin HCl (Glucophage Xr) 500 mg DAILYWBKFT PO Last administered on 02/05/21at 08:18; Start 02/04/21 at 15:00 Active Scripts Active Percocet 5-325 Mg Tablet (Oxycodone/Acetaminophen) 1 Each Tablet 1 Tab PO PRN Q6HRS PRN 5 Days Metformin Hcl Er (Metformin Hcl) 500 Mg Tab.er.24h 500 Mg PO DAILYWBKFT 30 Days Reported Klonopin (Clonazepam) 1 Mg Tablet 1 Tab PO TID Trazodone Hcl 100 Mg Tablet 75 Mg PO HS Keflex (Cephalexin) 750 Mg Capsule 500 Mg PO TID Ferrous Sulfate 325 Mg Tablet 1 Tab PO BID Cyclobenzaprine Hcl 10 Mg Tablet 10 Mg PO HS Nifedipine Er (Nifedipine) 30 Mg Tablet.er 30 Mg PO HS Atenolol 50 Mg Tablet 50 Mg PO DAILY Losartan Potassium 100 Mg Tablet 100 Mg PO DAILY16 Colace (Docusate Sodium) 100 Mg Capsule 100 Mg PO DAILY Gabapentin 600 Mg Tablet 1,800 Mg PO BID Levothyroxine Sodium 200 Mcg Tablet 200 Mcg PO DAILYAC Hydrochlorothiazide Tablet (Hydrochlorothiazide) 25 Mg Tablet 50 Mg PO DAILY Vitals/I & O Vital Sign - Last 24 Hours 02/04/21 02/04/21 02/04/21 02/04/21 10:32 10:32 14:19 14:19 Temp 98.5 98.5 Pulse 85 85 85 Resp 18 B/P (MAP) 136/83 (100) 136/83 136/83 Pulse Ox 93 O2 Delivery Room Air 02/04/21 02/04/21 02/04/21 02/04/21 14:33 14:33 19:00 20:00 Temp 97.5 98.0 97.5 98.0 Pulse 100 76 Resp 18 16 B/P (MAP) 141/86 (104) 138/77 (97) Pulse Ox 91 95 O2 Delivery Room Air Room Air 02/04/21 02/05/21 02/05/21 02/05/21 23:00 03:00 07:00 08:00 Temp 98.4 99.1 98.1 98.4 99.1 98.1 Pulse 75 81 79 Resp 16 18 18 B/P (MAP) 143/81 (101) 146/80 (102) 140/71 (94) Pulse Ox 94 93 96 O2 Delivery Room Air Room Air 02/05/21 02/05/21 08:19 08:19 Pulse 79 79 B/P (MAP) 140/71 140/71 Intake and Output 02/04/21 02/04/21 02/05/21 15:00 23:00 07:00 Intake Total 350 ml 450 ml Output Total 275 ml 300 ml Balance -275 ml 350 ml 150 ml Justicifation of Admission Dx: Justifications for Admission: Justification of Admission Dx: Yes KEITH CHIN MD Feb 05, 2021 10:01
[2021-02-05 11:00] VITALS: BP 113/61
[2021-02-05] MEDS: DAPTOmycin (GENERIC) IVPB 450 MG in IV NORMAL SALINE 50ML 50 ML IV SCH (12:01)
--- NOTE | 2021-02-05 13:36 | NUR ---
REMY following. Discussed with RN, pt accepted at [facility] pending insurance auth. No auth as of yet. REMY will continue to follow. Addendum: 02/05/21 at 1645 by FABIENNE ALBERTO Insurance approved transfer to [facility], house officer to call Angelic at [facility] first thing tomorrow morning (02/06/21) to arrange transportation. Angelic [phone]. RN notified. Discharge orders need to be faxed.
[2021-02-05] MEDS: MICAFUNGIN 100 MG in IV DEXTROSE 5% 100ML 100 ML IV SCH (17:22)
[2021-02-05 19:00] VITALS: BP 104/65
[2021-02-05] MEDS: traZODone 50 MG TABLET. PO SCH (21:16)
[2021-02-05] MEDS: TAMSULOSIN 0.4 MG CAP.ER.24H. PO SCH (21:16)
[2021-02-05 22:59] VITALS: BP 113/64
[2021-02-06] MEDS: MEROPENEM 500 MG in IV NORMAL SALINE 50ML 50 ML IV SCH ×5 (00:30→23:39)
[2021-02-06 03:00] VITALS: BP 112/64
[2021-02-06] MEDS: PANTOPRAZOLE 40 MG TABLET.DR. PO SCH (05:33)
[2021-02-06] MEDS: LEVOTHYROXINE 100 MCG TABLET PO SCH (05:33)
[2021-02-06] MEDS: HEPARIN for SUB-Q USE 5,000 UNIT/ML VIAL. SQ SCH ×3 (05:38→21:46)
[2021-02-06 07:00] VITALS: BP 124/63
[2021-02-06] MEDS: SENNOSIDES/DOCUSATE 8.6/50MG TABLET. PO SCH ×2 (08:15→20:34)
[2021-02-06] MEDS: FERROUS SULFATE 325 MG TABLET. PO SCH ×2 (08:15→17:56)
[2021-02-06] MEDS: GABAPENTIN 300 MG CAPSULE. PO SCH ×4 (08:15→20:34)
[2021-02-06] MEDS: clonazePAM 0.5 MG TABLET PO PRN ×2 (08:15→20:39)
[2021-02-06] MEDS: DOCUSATE SODIUM 100 MG CAPSULE. PO SCH (08:15)
[2021-02-06] MEDS: metFORMIN XR 500 MG TAB.ER.24H PO SCH (08:15)
[2021-02-06] MEDS: LACTOBACILLUS RHAMNOSUS GG 1 CAPSULE. PO SCH ×2 (08:15→20:34)
[2021-02-06] MEDS: METHADONE 10 MG TABLET. PO SCH ×3 (08:17→20:35)
[2021-02-06] MEDS: ATENOLOL 50 MG TABLET. PO SCH (08:19)
[2021-02-06] MEDS: hydroCHLOROthiazide 25 MG TABLET PO SCH (08:20)
[2021-02-06] MEDS: POLYETHYLENE GLYCOL 3350 17 GM PACKET. PO SCH (08:25)
--- NOTE | 2021-02-06 09:31 | PDOC ---
Infectious Disease Note Subjective: Subjective Patient basically feels the same Denies fever/chills/N/V/D/rash Tolerating po intake well Patient is worried about his who is awaiting brain surgery for tumors next Monday Vital Signs: Vital Signs Vital Signs Date Time Temp Pulse Resp B/P (MAP) Pulse Ox O2 Delivery O2 Flow Rate FiO2 02/06/21 08:19 79 124/63 02/06/21 07:00 98.2 17 94 Room Air 98.2 Physical Exam: PHYSICAL EXAM GENERAL: alert awake, sitting in bed appears comfortable HEENT: Normal conjunctivae. Oral cavity clear NECK: Supple. No JVP, no lymphadenopathy. LUNGS: Clear. HEART: S1, S2 regular. ABDOMEN: Soft, nontender. EXTREMITIES: No edema or cyanosis. Right knee wo redness/warmth/swelling. SKIN: No signs of gen rash. Groin yeast some better,dry flaky skin no Coello NEUROLOGIC: Alert, awake, and appropriate. MSK scar over cervical spine, lumbar spine healed some paraspinal pain in the low back, no dec in range of motion at neck RUE-PICC (01/28) clean Medications: Inpatient Meds: Medications reviewed. Objective: Assessment: Low Back pain, most likely is musculoskeletal. Abnormal MRI possible reactivation or new infection Urinary retention. UC 20K JATIN DUBLINIENSIS History of MSSA bacteremia and extensive spinal infection in October 2020. Pt was on keflex for a couple of months Hypertension. Anemia s/p PRBCs Yeast in groin Thrombocytopenia Elevated serum kappa and lambda Abn KUB Plan: Plan of Care C spine and T spine MRI noted, with new epidural and other collection, ?? post surgery changes, ? new infection or reactivation of infection pt clinically does not have any signs of infection of infection, sed rate 31 and crp not very high 2.1 no other clinical evidence for infection Dr. Bowie concerned about infection with the new changes so decision made to treat with a new full course of IV antibiotics. The area and the amount of fluid collection is not enough for us to be able to obtain the sample for cultures PICC line Continue dapto and meropenem for discharge for 6 weeks Patient is not eligible for above antibiotics as outpatient per discussion with social service due to insurance Patient is being transferred to [facility] later today per team Continue Dapto and Zosyn, Total duration will be at least 6 weeks Cont Micafungin while here, then DC MOnitor labs Pt and OT as tolerated F/U ID clinic on February 18 at 1;00 PM [phone] Discussed with nursing staff CORNELIA CAMARILLO MD Feb 06, 2021 09:31
--- NOTE | 2021-02-06 10:39 | PDOC ---
PROGRESS NOTES Date of Service DATE: 02/06/21 TIME: 10:37 Subjective Subjective No new complaints. Objective Objective Vital Signs Date Time Temp Pulse Resp B/P (MAP) Pulse Ox O2 Delivery O2 Flow Rate FiO2 02/06/21 08:19 79 124/63 02/06/21 07:00 98.2 17 94 Room Air 98.2 01/30/21 11:00 2.0 Intake and Output 02/06/21 07:00 Intake Total 920 ml Output Total 900 ml Balance 20 ml Intake Oral 820 ml Tube Feeding 100 ml Output Urine Total 900 ml # Voids 1 # Bowel Movements 1 Physical Exam Physical Exam He is sitting on commode and he continues to walk with roller walker on level surface. Assessment Assessment Problems Medical Problems: (1) Urinary retention Status: Acute Plan Plan of Care To SNF when arrangements are completed. Comment Review of Relevant I have reviewed the following items almas (where applicable) has been applied. Labs Laboratory Tests Test 02/04/21 12:38 Coronavirus (COVID-19)(PCR) Negative (NEGATIVE) SARS-CoV-2 Antigen (Rapid) Negative (NEGATIVE) Microbiology 01/26/21 Urine Culture - Final, Complete Medications Current Medications Iohexol (Omnipaque 300 Mg/ml) 75 ml 1X ONCE IV Last administered on 01/26/21at 14:54; Start 01/26/21 at 14:30; Stop 01/26/21 at 14:31; Status DC Info (CONTRAST GIVEN -- Rx MONITORING) 1 each PRN DAILY PRN MC SEE COMMENTS; Start 01/26/21 at 14:30; Stop 01/28/21 at 14:29; Status DC Fentanyl Citrate (Fentanyl 2ml Vial) 50 mcg 1X ONCE IV Last administered on 01/26/21at 14:59; Start 01/26/21 at 14:30; Stop 01/26/21 at 14:31; Status DC Ondansetron HCl (Zofran) 4 mg 1X ONCE IV Last administered on 01/26/21at 14:59; Start 01/26/21 at 14:30; Stop 01/26/21 at 14:31; Status DC Insulin Human Lispro (HumaLOG) 0-7 UNITS TIDWMEALS SQ ; Start 01/27/21 at 08:00; Stop 01/29/21 at 11:43; Status DC Dextrose (Dextrose 50%-Water Syringe) 12.5 gm PRN Q15MIN PRN IV SEE COMMENTS; Start 01/26/21 at 18:15; Stop 01/29/21 at 11:43; Status DC Dextrose (Iv Dextrose 5%) 250 ml PRN Q15MIN PRN IV SEE COMMENTS; Start 01/26/21 at 18:15; Status UNV Ondansetron HCl (Zofran) 4 mg PRN Q6HRS PRN IVP NAUSEA/VOMITING Last administered on 01/28/21at 04:08; Start 01/26/21 at 18:15 Al Hydroxide/Mg Hydroxide (Mylanta Plus Xs) 30 ml PRN Q3HRS PRN PO HEARTBURN / GAS; Start 01/26/21 at 18:15 Calcium Carbonate/ Glycine (Tums) 500 mg PRN Q3HRS PRN PO UPSET STOMACH; Start 01/26/21 at 18:15 Zolpidem Tartrate (Ambien) 5 mg PRN QHS PRN PO INSOMNIA, MAY REPEAT IN 1HR Last administered on 01/27/21at 23:55; Start 01/26/21 at 18:15 Morphine Sulfate (Morphine Sulfate) 2 mg PRN Q1HR PRN IV MODERATE PAIN Last administered on 01/26/21at 19:27; Start 01/26/21 at 18:15; Stop 01/28/21 at 09:01; Status DC Acetaminophen/ Hydrocodone Bitart (Lortab 5/325) 1 tab PRN Q4HRS PRN PO MILD PAIN 1-3; Start 01/26/21 at 18:15; Stop 01/28/21 at 09:01; Status DC Acetaminophen/ Hydrocodone Bitart (Lortab 5/325) 2 tab PRN Q4HRS PRN PO MO DERATE PAIN Last administered on 01/28/21at 04:39; Start 01/26/21 at 18:15; Stop 01/28/21 at 09:01; Status DC Hydromorphone HCl (Dilaudid) 2 mg PRN Q4HRS PRN PO MODERATE PAIN, 2ND CHOICE; Start 01/26/21 at 18:15; Stop 01/28/21 at 09:01; Status DC Hydromorphone HCl (Dilaudid) 4 mg PRN Q4HRS PRN PO SEVERE PAIN; Start 01/26/21 at 18:15; Stop 01/28/21 at 09:01; Status DC Acetaminophen (Tylenol) 650 mg PRN Q6HRS PRN PO Headaches, Temp > 101.5F Last administered on 01/30/21at 11:15; Start 01/26/21 at 18:15 Magnesium Hydroxide (Milk Of Magnesia) 2,400 mg PRN Q12HR PRN PO CONSTIPATION (1st Choice) Last administered on 01/27/21at 16:39; Start 01/26/21 at 18:15 Bisacodyl (Dulcolax Supp) 10 mg PRN DAILY PRN IN CONSTIPATION; Start 01/26/21 at 18:15 Heparin Sodium (Porcine) (Heparin Sodium) 5,000 unit Q8HRS SQ Last administered on 02/06/21at 05:38; Start 01/26/21 at 22:00 Hydromorphone HCl (Dilaudid) 2 mg PRN Q4HRS PRN IVP SEVERE PAIN Last administered on 01/27/21at 09:37; Start 01/26/21 at 18:15; Stop 01/28/21 at 09:01; Status DC Lorazepam (Ativan Inj) 2 mg PRN Q4HRS PRN IVP ANXIETY / AGITATION Last administered on 02/05/21at 00:34; Start 01/26/21 at 18:15 Trazodone HCl (Desyrel) 75 mg HS PO Last administered on 02/05/21at 21:16; Start 01/26/21 at 21:30 Clonazepam (KlonoPIN) 1 mg TID PO Last administered on 01/27/21at 09:32; Start 01/26/21 at 21:30; Stop 01/27/21 at 13:36; Status DC Cephalexin HCl (Keflex) 500 mg TID PO Last administered on 01/30/21 09:33; Start 01/27/21 at 09:00; Stop 01/30/21 at 13:51; Status DC Lactobacillus Rhamnosus (Culturelle) 1 cap BID PO Last administered on 02/06/21at 08:15; Start 01/27/21 at 21:00 Clonazepam (KlonoPIN) 1 mg PRN TID PRN PO anxiety Last administered on 02/06/21at 08:15; Start 01/27/21 at 13:45 Gadoterate Meglumine (Clariscan) 17 ml 1X ONCE IVP Last administered on 01/27/21at 14:54; Start 01/27/21 at 13:45; Stop 01/27/21 at 13:49; Status DC Senna/Docusate Sodium (Senna Plus) 1 tab BID PO Last administered on 02/06/21at 08:15; Start 01/27/21 at 21:00 Polyethylene Glycol (miraLAX PACKET) 17 gm DAILY PO Last administered on 02/04/21at 08:00; Start 01/28/21 at 09:00 Bisacodyl (Dulcolax Tab) 10 mg PRN DAILY PRN PO CONSTIPATION (2nd Choice) Last administered on 01/27/21at 16:40; Start 01/27/21 at 16:15 Tamsulosin HCl (Flomax) 0.4 mg QHS PO Last administered on 02/05/21at 21:16; Start 01/27/21 at 21:00 Polyethylene Glycol (miraLAX PACKET) 17 gm DAILY PO ; Start 01/27/21 at 16:15; Status UNV Senna/Docusate Sodium (Senna Plus) 1 tab DAILY PO ; Start 01/27/21 at 16:15; Status UNV Gabapentin (Neurontin) 300 mg QID PO Last administered on 02/06/21at 08:15; Start 01/28/21 at 09:30 Levothyroxine Sodium (Synthroid) 200 mcg DAILY06 PO Last administered on 02/06/21at 05:33; Start 01/28/21 at 09:30 Methadone HCl (Dolophine) 10 mg TID PO Last administered on 02/06/21at 08:17; Start 01/28/21 at 09:00 Daptomycin 450 mg/ Sodium Chloride 50 ml @ 100 mls/hr Q24H IV Last administered on 02/05/21at 12:01; Start 01/28/21 at 12:30 Meropenem 500 mg/ Sodium Chloride 50 ml @ 100 mls/hr Q8HRS IV Last administered on 01/30/21at 06:04; Start 01/28/21 at 14:00; Stop 01/30/21 at 15:56; Status DC Lidocaine HCl (Buffered Lidocaine 1%) 3 ml STK-MED ONCE .ROUTE ; Start 01/28/21 at 14:32; Stop 01/28/21 at 14:33; Status DC Lidocaine HCl (Buffered Lidocaine 1%) 3 ml 1X ONCE INJ Last administered on 01/28/21at 15:22; Start 01/28/21 at 15:15; Stop 01/28/21 at 15:16; Status DC Cyanocobalamin (Vitamin B-12 Inj) 1,000 mcg 1X ONCE IM Last administered on 01/29/21at 09:28; Start 01/29/21 at 07:30; Stop 01/29/21 at 07:31; Status DC Meropenem 500 mg/ Sodium Chloride 50 ml @ 100 mls/hr Q6HRS IV Last administered on 02/06/21at 05:33; Start 01/30/21 at 18:00 Micafungin Sodium 100 mg/Dextrose 100 ml @ 100 mls/hr Q24H IV Last administered on 02/05/21at 17:22; Start 01/30/21 at 17:00 Pantoprazole Sodium (PROTONIX VIAL for IV PUSH) 40 mg DAILYAC IVP Last administered on 02/02/21at 09:25; Start 02/02/21 at 07:30; Stop 02/02/21 at 10:20; Status DC Pantoprazole Sodium (Protonix) 40 mg DAILYAC PO Last administered on 02/06/21at 05:33; Start 02/03/21 at 07:30 Atenolol (Tenormin) 50 mg DAILY PO Last administered on 02/06/21at 08:19; Start 02/04/21 at 15:00 Docusate Sodium (Colace) 100 mg DAILY PO Last administered on 02/06/21at 08:15; Start 02/04/21 at 15:00 Ferrous Sulfate (Feosol) 325 mg BIDWMEALS PO Last administered on 02/06/21at 08:15; Start 02/04/21 at 17:00 Hydrochlorothiazide (Hydrodiuril) 50 mg DAILY PO Last administered on 02/06/21at 08:20; Start 02/04/21 at 15:00 Oxycodone/ Acetaminophen (Percocet 5/325) 1 tab PRN Q6HRS PRN PO PAIN; Start 02/04/21 at 13:15 Nifedipine (Procardia Xl) 30 mg DAILY PO Last administered on 02/06/21at 08:19; Start 02/04/21 at 15:00 Metformin HCl (Glucophage Xr) 500 mg DAILYWBKFT PO Last administered on 02/06/21at 08:15; Start 02/04/21 at 15:00 Active Scripts Active Percocet 5-325 Mg Tablet (Oxycodone/Acetaminophen) 1 Each Tablet 1 Tab PO PRN Q6HRS PRN 5 Days Metformin Hcl Er (Metformin Hcl) 500 Mg Tab.er.24h 500 Mg PO DAILYWBKFT 30 Days Reported Klonopin (Clonazepam) 1 Mg Tablet 1 Tab PO TID Trazodone Hcl 100 Mg Tablet 75 Mg PO HS Keflex (Cephalexin) 750 Mg Capsule 500 Mg PO TID Ferrous Sulfate 325 Mg Tablet 1 Tab PO BID Cyclobenzaprine Hcl 10 Mg Tablet 10 Mg PO HS Nifedipine Er (Nifedipine) 30 Mg Tablet.er 30 Mg PO HS Atenolol 50 Mg Tablet 50 Mg PO DAILY Losartan Potassium 100 Mg Tablet 100 Mg PO DAILY16 Colace (Docusate Sodium) 100 Mg Capsule 100 Mg PO DAILY Gabapentin 600 Mg Tablet 1,800 Mg PO BID Levothyroxine Sodium 200 Mcg Tablet 200 Mcg PO DAILYAC Hydrochlorothiazide Tablet (Hydrochlorothiazide) 25 Mg Tablet 50 Mg PO DAILY Vitals/I & O Vital Sign - Last 24 Hours 02/05/21 02/05/21 02/05/21 02/05/21 11:00 19:00 19:51 22:59 Temp 98.4 98.5 98.1 98.4 98.5 98.1 Pulse 74 82 84 Resp 18 18 18 B/P (MAP) 113/61 (78) 104/65 (78) 113/64 (80) Pulse Ox 98 94 93 O2 Delivery Room Air Room Air Room Air Room Air 02/06/21 02/06/21 02/06/21 02/06/21 03:00 07:00 08:19 08:19 Temp 98.0 98.2 98.0 98.2 Pulse 77 79 79 79 Resp 18 17 B/P (MAP) 112/64 (80) 124/63 (83) 124/63 124/63 Pulse Ox 91 94 O2 Delivery Room Air Room Air Intake and Output 02/05/21 02/05/21 02/06/21 15:00 23:00 07:00 Intake Total 260 ml 460 ml 200 ml Output Total 350 ml 250 ml 300 ml Balance -90 ml 210 ml -100 ml Justifications for Admission Other Justification Lumbar spinal stenosis concerning for cauda equina syndrome RENETTA HOWARD MD Feb 06, 2021 10:39
[2021-02-06 11:00] VITALS: BP 128/76
--- NOTE | 2021-02-06 11:34 | PDOC ---
PROGRESS NOTES Date of Service: DATE: 02/06/21 TIME: 11:31 Chief Complaint Chief Complaint impression L2-L5 spinal canal stenosis with urinary retention - retention more likely medication side effect. Cervical spine stenosis History osteomyelitis DM2 - sliding scale Normocytic anemia - s/p transfusion DENIES HX Colonoscopy but is poor historian Thrombocytopenia - hematology following Hypothyroidism Chronic pain Right total knee replacement History of femur fracture October 2020 osteomyelitis T11-12 - MRI changes in cervical and thoracic spine likely needs IV treatment Complete to near complete resolution of previously demonstrated epidural enhancement consistent with abscess throughout the and majority of the thoracic levels, consistent with interval treatment response. There is a new small enhancing ventral epidural collection measuring 2 mm in thickness at T1-T2 which is likely infectious given extensive adjacent marrow edema involving the posterior elements and surrounding soft tissues at C7-T1. There are new small peripherally enhancing fluid collections posterior to the facet joints at this level and within the left dorsal central canal which may be due to superinfected synovial cysts or abscesses. dilation of a segment of colon measuring up to 6.5 cm. / uncertain clinical significance, obstruction or focal ileus could have this appearance. Plan: Will resume his current antibiotic treatment Hemoglobin & hematocrit 8.8 and 25.6 respectively (11/16/2020); hemoglobin 7.1 and hematocrit 22.9 on admission. Will continue to monitor and transfuse as needed. Resume home medications FEN - Cardiac diet PPX - Heparin FULL CODE Dispo - inpatient for above HEME consult Continue dapto and meropenem , Cont Micafungin GI consult guiac stools CEA 37 min pt exam, chart review, > 50% of time spent with exam, chart review, pt care coordination Advance Care Planning: Total time spent [id number] with patient 16 minutes in discussion with goals of care, comfort care, end-of-life care, pain management, code status; patient names his (Radha Padilla) as surrogate decision-maker. History of Present Illness History of Present Illness impression Mr Byrnes is a 61-year-old male PMHx hypothyroidism, chronic pain, hernia, back surgery, right total knee replacement, and history of femur fracture and October 2020 osteomyelitis s/p cervical, thoracic, and lumbar epidural abscess drainage who presents to the ED with complaints of urinary retention. Patient states he has not urinated in the past 2 days prior to admit with associated bladder distention. He was recently admitted on 11/02/2020 for spinal epidural abscess, paraspinal cervical abscess, and osteomyelitis. He states he is currently on an antibiotic 3 times daily, but cannot member the name of this antibiotic. CT lumbar spine obtained in the ED showed redemonstrated changes of discitis osteomyelitis at L3-L4 with at least moderate spinal canal stenosis at that level L2-L5. Coello catheter was placed in the ED with reportedly 1000 mL urine output. Patient states he feels significantly better after having Coello placed, but is also reports chronic right knee pain. He has had right knee pain over t his past 3 years since total knee replacement, but states his pain is worsened over the past 3 days causing him difficulty moving. States his knee is slightly more mobile after pain medication he received in the ED. Neurosurgery was consulted in the ED and requesting admission. Admitted patient for further medical management. 01/27: Afebrile. Discussed with neurosurgery and ID his recent MRI is actually improved. He discloses to me that prior to his complicated hospital stay he had actually been weaned down from 150 mg daily of methadone for chronic pain to 10 mg 3 times daily and has had trouble having anyone to prescribe methadone for him. He continues to ask for pain medication regularly. Discussed complications of urinary retention related to chronic opioid therapy. 01/28: Afebrile. Platelets still low normal still low. Coello out today start on methadone per PMR. MRI reviewed with ID and neurosurgery, given MRI findings and thoracic and cervical areas changed likely persistent infection. Voiding trial today. PICC inserted 01/29: Afebrile overnight. Hemoglobin dropped below 7. Pain better controlled on methadone. No residual on PVR. 1u PRBC with good effect 01/30: Afebrile. Hb dropped to 6.8 again. 11 unit of blood transfusing. He actually feels better on the methadone is a little bit stronger. No more urinary retention. Afebrile. Hb 7.9 posttransfusion. Platelets up to 108. Feeling improved. - L2-L5 spinal canal stenosis with urinary retention - retention more likely medication side effect. Cervical spine stenosis History osteomyelitis DM2 - sliding scale Normocytic anemia - s/p transfusion Thrombocytopenia - hematology following Hypothyroidism FEN - Cardiac diet PPX - Heparin FULL CODE Dispo - inpatient for above HEME consult Continue dapto and meropenem , Cont Micafungin 37 min pt exam, chart review, > 50% of time spent with exam, chart review, pt care coordination 6-16 L2-L5 spinal canal stenosis with urinary retention - retention more likely medication side effect. Cervical spine stenosis History osteomyelitis DM2 - sliding scale Normocytic anemia - s/p transfusion Thrombocytopenia - hematology following Hypothyroidism FEN - Cardiac diet PPX - Heparin FULL CODE Dispo - inpatient for above HEME consult Continue dapto and meropenem , Cont Micafungin d/w rn * 2 weeks Discharge Recommendations * [facility] * * * 6-17 L2-L5 spinal canal stenosis with urinary retention - retention more likely medication side effect. Cervical spine stenosis History osteomyelitis DM2 - sliding scale Normocytic anemia - s/p transfusion Thrombocytopenia - hematology following Hypothyroidism FEN - Cardiac diet PPX - Heparin FULL CODE Dispo - inpatient for above HEME consult Continue dapto and meropenem , Cont Micafungin d/w rn * 2 weeks Discharge Recommendations * [facility] * * Meropenem versus Zosyn 13.5 g daily continuous infusion versus IV Invanz 1 g daily If Dapto is not an option, next choice would be IV dalbavancin 1500 mg q. weekly for 6 weeks Cont Micafungin while here 6-18 L2-L5 spinal canal stenosis with urinary retention - retention more likely medication side effect. Cervical spine stenosis History osteomyelitis DM2 - sliding scale Normocytic anemia - s/p transfusion Thrombocytopenia - hematology following Hypothyroidism FEN - Cardiac diet PPX - Heparin FULL CODE Dispo - inpatient for above HEME consult Continue dapto and meropenem , Cont Micafungin d/w rn Other options are Meropenem versus Zosyn 13.5 g daily continuous infusion versus IV Invanz 1 g daily If Dapto is not an option, next choice would be IV dalbavancin 1500 mg q. weekly Total duration will be at least 6 weeks * 2 weeks Discharge Recommendations * [facility] Meropenem versus Zosyn 13.5 g daily continuous infusion versus IV Invanz 1 g daily If Dapto is not an option, next choice would be IV dalbavancin 1500 mg q. weekly for 6 weeks Cont Micafungin while here 6-19 L2-L5 spinal canal stenosis with urinary retention - retention more likely medication side effect. Cervical spine stenosis History osteomyelitis DM2 - sliding scale Normocytic anemia - s/p transfusion Thrombocytopenia - hematology following Hypothyroidism FEN - Cardiac diet PPX - Heparin FULL CODE Dispo - inpatient for above HEME consult Continue dapto and meropenem , Cont Micafungin d/w rn Other options are Meropenem versus Zosyn 13.5 g daily continuous infusion versus IV Invanz 1 g daily If Dapto is not an option, next choice would be IV dalbavancin 1500 mg q. weekly Total duration will be at least 6 weeks * 2 weeks Discharge Recommendations * [facility] Meropenem versus Zosyn 13.5 g daily continuous infusion versus IV Invanz 1 g daily If Dapto is not an option, next choice would be IV dalbavancin 1500 mg q. weekly for 6 weeks Cont Micafungin while here patient request to stay until monday due to his having neurosurgery here Monday, i discussed this with Margaret Nursing soft sugar supervisor on 2 nd floor at 11 AM Vitals Vitals Vital Signs Date Time Temp Pulse Resp B/P (MAP) Pulse Ox O2 Delivery O2 Flow Rate FiO2 02/06/21 11:00 98.0 78 18 128/76 (93) 94 Room Air 98.0 Physical Exam Physical Exam GENERAL: alert awake, sitting in bed appears comfortable HEENT: Normal conjunctivae. Oral cavity clear NECK: Supple. No JVP, no lymphadenopathy. LUNGS: Clear. HEART: S1, S2 regular. ABDOMEN: Soft, nontender. EXTREMITIES: No edema or cyanosis. Right knee wo redness/warmth/swelling. SKIN: No signs of gen rash. Groin yeast some better,dry flaky skin no Coello NEUROLOGIC: Alert, awake, and appropriate. MSK scar over cervical spine, lumbar spine healed some paraspinal pain in the low back, no dec in range of motion at neck RUE-PICC (01/28) clean General: Alert, Oriented X3, Cooperative, No acute distress Heart: Regular rate, Normal S1, Normal S2 Lungs: Clear Abdomen: Normal bowel sounds, Soft, No tenderness Extremities: No clubbing, No cyanosis Skin: No significant lesion Assessment and Plan Assessmemt and Plan Problems Medical Problems: (1) Urinary retention Status: Acute Comment Review of Relevant I have reviewed the following items almas (where applicable) has been applied. Labs Laboratory Tests Test 02/04/21 12:38 Coronavirus (COVID-19)(PCR) Negative (NEGATIVE) SARS-CoV-2 Antigen (Rapid) Negative (NEGATIVE) Microbiology 01/26/21 Urine Culture - Final, Complete Medications Current Medications Iohexol (Omnipaque 300 Mg/ml) 75 ml 1X ONCE IV Last administered on 01/26/21at 14:54; Start 01/26/21 at 14:30; Stop 01/26/21 at 14:31; Status DC Info (CONTRAST GIVEN -- Rx MONITORING) 1 each PRN DAILY PRN MC SEE COMMENTS; Start 01/26/21 at 14:30; Stop 01/28/21 at 14:29; Status DC Fentanyl Citrate (Fentanyl 2ml Vial) 50 mcg 1X ONCE IV Last administered on 01/26/21at 14:59; Start 01/26/21 at 14:30; Stop 01/26/21 at 14:31; Status DC Ondansetron HCl (Zofran) 4 mg 1X ONCE IV Last administered on 01/26/21at 14:59; Start 01/26/21 at 14:30; Stop 01/26/21 at 14:31; Status DC Insulin Human Lispro (HumaLOG) 0-7 UNITS TIDWMEALS SQ ; Start 01/27/21 at 08:00; Stop 01/29/21 at 11:43; Status DC Dextrose (Dextrose 50%-Water Syringe) 12.5 gm PRN Q15MIN PRN IV SEE COMMENTS; Start 01/26/21 at 18:15; Stop 01/29/21 at 11:43; Status DC Dextrose (Iv Dextrose 5%) 250 ml PRN Q15MIN PRN IV SEE COMMENTS; Start 01/26/21 at 18:15; Status UNV Ondansetron HCl (Zofran) 4 mg PRN Q6HRS PRN IVP NAUSEA/VOMITING Last administered on 01/28/21at 04:08; Start 01/26/21 at 18:15 Al Hydroxide/Mg Hydroxide (Mylanta Plus Xs) 30 ml PRN Q3HRS PRN PO HEARTBURN / GAS; Start 01/26/21 at 18:15 Calcium Carbonate/ Glycine (Tums) 500 mg PRN Q3HRS PRN PO UPSET STOMACH; Start 01/26/21 at 18:15 Zolpidem Tartrate (Ambien) 5 mg PRN QHS PRN PO INSOMNIA, MAY REPEAT IN 1HR Last administered on 01/27/21at 23:55; Start 01/26/21 at 18:15 Morphine Sulfate (Morphine Sulfate) 2 mg PRN Q1HR PRN IV MODERATE PAIN Last administered on 01/26/21at 19:27; Start 01/26/21 at 18:15; Stop 01/28/21 at 09:01; Status DC Acetaminophen/ Hydrocodone Bitart (Lortab 5/325) 1 tab PRN Q4HRS PRN PO MILD PAIN 1-3; Start 01/26/21 at 18:15; Stop 01/28/21 at 09:01; Status DC Acetaminophen/ Hydrocodone Bitart (Lortab 5/325) 2 tab PRN Q4HRS PRN PO MOD ERATE PAIN Last administered on 01/28/21at 04:39; Start 01/26/21 at 18:15; Stop 01/28/21 at 09:01; Status DC Hydromorphone HCl (Dilaudid) 2 mg PRN Q4HRS PRN PO MODERATE PAIN, 2ND CHOICE; Start 01/26/21 at 18:15; Stop 01/28/21 at 09:01; Status DC Hydromorphone HCl (Dilaudid) 4 mg PRN Q4HRS PRN PO SEVERE PAIN; Start 01/26/21 at 18:15; Stop 01/28/21 at 09:01; Status DC Acetaminophen (Tylenol) 650 mg PRN Q6HRS PRN PO Headaches, Temp > 101.5F Last administered on 01/30/21at 11:15; Start 01/26/21 at 18:15 Magnesium Hydroxide (Milk Of Magnesia) 2,400 mg PRN Q12HR PRN PO CONSTIPATION (1st Choice) Last administered on 01/27/21at 16:39; Start 01/26/21 at 18:15 Bisacodyl (Dulcolax Supp) 10 mg PRN DAILY PRN GA CONSTIPATION; Start 01/26/21 at 18:15 Heparin Sodium (Porcine) (Heparin Sodium) 5,000 unit Q8HRS SQ Last administered on 02/06/21at 05:38; Start 01/26/21 at 22:00 Hydromorphone HCl (Dilaudid) 2 mg PRN Q4HRS PRN IVP SEVERE PAIN Last administered on 01/27/21at 09:37; Start 01/26/21 at 18:15; Stop 01/28/21 at 09:01; Status DC Lorazepam (Ativan Inj) 2 mg PRN Q4HRS PRN IVP ANXIETY / AGITATION Last administered on 02/05/21at 00:34; Start 01/26/21 at 18:15 Trazodone HCl (Desyrel) 75 mg HS PO Last administered on 02/05/21at 21:16; Start 01/26/21 at 21:30 Clonazepam (KlonoPIN) 1 mg TID PO Last administered on 01/27/21at 09:32; Start 01/26/21 at 21:30; Stop 01/27/21 at 13:36; Status DC Cephalexin HCl (Keflex) 500 mg TID PO Last administered on 01/30/21at 09:33; Start 01/27/21 at 09:00; Stop 01/30/21 at 13:51; Status DC Lactobacillus Rhamnosus (Culturelle) 1 cap BID PO Last administered on 02/06/21at 08:15; Start 01/27/21 at 21:00 Clonazepam (KlonoPIN) 1 mg PRN TID PRN PO anxiety Last administered on 02/06/21at 08:15; Start 01/27/21 at 13:45 Gadoterate Meglumine (Clariscan) 17 ml 1X ONCE IVP Last administered on 01/27/21at 14:54; Start 01/27/21 at 13:45; Stop 01/27/21 at 13:49; Status DC Senna/Docusate Sodium (Senna Plus) 1 tab BID PO Last administered on 02/06/21at 08:15; Start 01/27/21 at 21:00 Polyethylene Glycol (miraLAX PACKET) 17 gm DAILY PO Last administered on 02/04/21at 08:00; Start 01/28/21 at 09:00 Bisacodyl (Dulcolax Tab) 10 mg PRN DAILY PRN PO CONSTIPATION (2nd Choice) Last administered on 01/27/21at 16:40; Start 01/27/21 at 16:15 Tamsulosin HCl (Flomax) 0.4 mg QHS PO Last administered on 02/05/21at 21:16; Start 01/27/21 at 21:00 Polyethylene Glycol (miraLAX PACKET) 17 gm DAILY PO ; Start 01/27/21 at 16:15; Status UNV Senna/Docusate Sodium (Senna Plus) 1 tab DAILY PO ; Start 01/27/21 at 16:15; Status UNV Gabapentin (Neurontin) 300 mg QID PO Last administered on 02/06/21at 08:15; Start 01/28/21 at 09:30 Levothyroxine Sodium (Synthroid) 200 mcg DAILY06 PO Last administered on 02/06/21at 05:33; Start 01/28/21 at 09:30 Methadone HCl (Dolophine) 10 mg TID PO Last administered on 02/06/21at 08:17; Start 01/28/21 at 09:00 Daptomycin 450 mg/ Sodium Chloride 50 ml @ 100 mls/hr Q24H IV Last administered on 02/05/21at 12:01; Start 01/28/21 at 12:30 Meropenem 500 mg/ Sodium Chloride 50 ml @ 100 mls/hr Q8HRS IV Last administered on 01/30/21at 06:04; Start 01/28/21 at 14:00; Stop 01/30/21 at 15:56; Status DC Lidocaine HCl (Buffered Lidocaine 1%) 3 ml STK-MED ONCE .ROUTE ; Start 01/28/21 at 14:32; Stop 01/28/21 at 14:33; Status DC Lidocaine HCl (Buffered Lidocaine 1%) 3 ml 1X ONCE INJ Last administered on 01/28/21at 15:22; Start 01/28/21 at 15:15; Stop 01/28/21 at 15:16; Status DC Cyanocobalamin (Vitamin B-12 Inj) 1,000 mcg 1X ONCE IM Last administered on 01/29/21at 09:28; Start 01/29/21 at 07:30; Stop 01/29/21 at 07:31; Status DC Meropenem 500 mg/ Sodium Chloride 50 ml @ 100 mls/hr Q6HRS IV Last administered on 02/06/21at 11:20; Start 01/30/21 at 18:00 Micafungin Sodium 100 mg/Dextrose 100 ml @ 100 mls/hr Q24H IV Last administered on 02/05/21at 17:22; Start 01/30/21 at 17:00 Pantoprazole Sodium (PROTONIX VIAL for IV PUSH) 40 mg DAILYAC IVP Last administered on 02/02/21at 09:25; Start 02/02/21 at 07:30; Stop 02/02/21 at 10:20; Status DC Pantoprazole Sodium (Protonix) 40 mg DAILYAC PO Last administered on 02/06/21at 05:33; Start 02/03/21 at 07:30 Atenolol (Tenormin) 50 mg DAILY PO Last administered on 02/06/21at 08:19; Start 02/04/21 at 15:00 Docusate Sodium (Colace) 100 mg DAILY PO Last administered on 02/06/21at 08:15; Start 02/04/21 at 15:00 Ferrous Sulfate (Feosol) 325 mg BIDWMEALS PO Last administered on 02/06/21at 08:15; Start 02/04/21 at 17:00 Hydrochlorothiazide (Hydrodiuril) 50 mg DAILY PO Last administered on 02/06/21at 08:20; Start 02/04/21 at 15:00 Oxycodone/ Acetaminophen (Percocet 5/325) 1 tab PRN Q6HRS PRN PO PAIN; Start 02/04/21 at 13:15 Nifedipine (Procardia Xl) 30 mg DAILY PO Last administered on 02/06/21at 08:19; Start 02/04/21 at 15:00 Metformin HCl (Glucophage Xr) 500 mg DAILYWBKFT PO Last administered on 02/06/21at 08:15; Start 02/04/21 at 15:00 Active Scripts Active Percocet 5-325 Mg Tablet (Oxycodone/Acetaminophen) 1 Each Tablet 1 Tab PO PRN Q6HRS PRN 5 Days Metformin Hcl Er (Metformin Hcl) 500 Mg Tab.er.24h 500 Mg PO DAILYWBKFT 30 Days Reported Klonopin (Clonazepam) 1 Mg Tablet 1 Tab PO TID Trazodone Hcl 100 Mg Tablet 75 Mg PO HS Keflex (Cephalexin) 750 Mg Capsule 500 Mg PO TID Ferrous Sulfate 325 Mg Tablet 1 Tab PO BID Cyclobenzaprine Hcl 10 Mg Tablet 10 Mg PO HS Nifedipine Er (Nifedipine) 30 Mg Tablet.er 30 Mg PO HS Atenolol 50 Mg Tablet 50 Mg PO DAILY Losartan Potassium 100 Mg Tablet 100 Mg PO DAILY16 Colace (Docusate Sodium) 100 Mg Capsule 100 Mg PO DAILY Gabapentin 600 Mg Tablet 1,800 Mg PO BID Levothyroxine Sodium 200 Mcg Tablet 200 Mcg PO DAILYAC Hydrochlorothiazide Tablet (Hydrochlorothiazide) 25 Mg Tablet 50 Mg PO DAILY Vitals/I & O Vital Sign - Last 24 Hours 02/05/21 02/05/21 02/05/21 02/06/21 19:00 19:51 22:59 03:00 Temp 98.5 98.1 98.0 98.5 98.1 98.0 Pulse 82 84 77 Resp 18 18 18 B/P (MAP) 104/65 (78) 113/64 (80) 112/64 (80) Pulse Ox 94 93 91 O2 Delivery Room Air Room Air Room Air Room Air 02/06/21 02/06/21 02/06/21 02/06/21 07:00 08:19 08:19 11:00 Temp 98.2 98.0 98.2 98.0 Pulse 79 79 79 78 Resp 17 18 B/P (MAP) 124/63 (83) 124/63 124/63 128/76 (93) Pulse Ox 94 94 O2 Delivery Room Air Room Air Intake and Output 02/05/21 02/05/21 02/06/21 15:00 23:00 07:00 Intake Total 260 ml 460 ml 200 ml Output Total 350 ml 250 ml 300 ml Balance -90 ml 210 ml -100 ml Justicifation of Admission Dx: Justifications for Admission: Justification of Admission Dx: Yes KEITH CHIN MD Feb 06, 2021 11:34
[2021-02-06] MEDS: DAPTOmycin (GENERIC) IVPB 450 MG in IV NORMAL SALINE 50ML 50 ML IV SCH (12:27)
[2021-02-06 15:00] VITALS: BP 110/59
[2021-02-06] MEDS: MICAFUNGIN 100 MG in IV DEXTROSE 5% 100ML 100 ML IV SCH (17:56)
[2021-02-06 19:00] VITALS: BP 111/59
[2021-02-06] MEDS: traZODone 50 MG TABLET. PO SCH (20:35)
[2021-02-06] MEDS: TAMSULOSIN 0.4 MG CAP.ER.24H. PO SCH (20:35)
[2021-02-06 23:00] VITALS: BP 127/75
[2021-02-07 03:00] VITALS: BP 116/65
[2021-02-07] MEDS: MEROPENEM 500 MG in IV NORMAL SALINE 50ML 50 ML IV SCH ×3 (06:03→16:57)
[2021-02-07] MEDS: LEVOTHYROXINE 100 MCG TABLET PO SCH (06:03)
[2021-02-07] MEDS: HEPARIN for SUB-Q USE 5,000 UNIT/ML VIAL. SQ SCH ×3 (06:07→20:54)
[2021-02-07 07:00] VITALS: BP 116/62
[2021-02-07] MEDS: DOCUSATE SODIUM 100 MG CAPSULE. PO SCH (07:08)
[2021-02-07] MEDS: POLYETHYLENE GLYCOL 3350 17 GM PACKET. PO SCH (07:09)
[2021-02-07] MEDS: SENNOSIDES/DOCUSATE 8.6/50MG TABLET. PO SCH ×2 (07:09→20:40)
[2021-02-07] MEDS: PANTOPRAZOLE 40 MG TABLET.DR. PO SCH (07:35)
[2021-02-07] MEDS: metFORMIN XR 500 MG TAB.ER.24H PO SCH (07:35)
[2021-02-07] MEDS: LACTOBACILLUS RHAMNOSUS GG 1 CAPSULE. PO SCH ×2 (07:35→20:39)
[2021-02-07] MEDS: METHADONE 10 MG TABLET. PO SCH ×3 (07:35→20:40)
[2021-02-07] MEDS: GABAPENTIN 300 MG CAPSULE. PO SCH ×4 (07:36→20:39)
[2021-02-07] MEDS: FERROUS SULFATE 325 MG TABLET. PO SCH ×2 (07:36→16:56)
[2021-02-07] MEDS: clonazePAM 0.5 MG TABLET PO PRN ×2 (07:36→20:40)
[2021-02-07] MEDS: ATENOLOL 50 MG TABLET. PO SCH (07:36)
[2021-02-07] MEDS: hydroCHLOROthiazide 25 MG TABLET PO SCH (07:36)
--- NOTE | 2021-02-07 09:17 | PDOC ---
Infectious Disease Note Subjective: Subjective Patient without complaints Denies fever, nausea, vomiting, shortness of breath, diarrhea, abdominal pain, rash Otherwise as above Vital Signs: Vital Signs Vital Signs Date Time Temp Pulse Resp B/P (MAP) Pulse Ox O2 Delivery O2 Flow Rate FiO2 02/07/21 07:36 67 116/62 02/07/21 07:00 98.1 17 97 Room Air 98.1 Physical Exam: PHYSICAL EXAM GENERAL: alert awake, sitting in bed appears comfortable HEENT: Normal conjunctivae. Oral cavity clear NECK: Supple. No JVP, no lymphadenopathy. LUNGS: Clear. HEART: S1, S2 regular. ABDOMEN: Soft, nontender. EXTREMITIES: No edema or cyanosis. Right knee wo redness/warmth/swelling. SKIN: No signs of gen rash. Groin yeast some better,dry flaky skin no Coello NEUROLOGIC: Alert, awake, and appropriate. MSK scar over cervical spine, lumbar spine healed some paraspinal pain in the low back, no dec in range of motion at neck RUE-PICC (01/28) clean Medications: Inpatient Meds: Medications reviewed. Objective: Assessment: Low Back pain, most likely is musculoskeletal. Abnormal MRI possible reactivation or new infection Urinary retention. UC 20K JATIN DUBLINIENSIS, now resolved History of MSSA bacteremia and extensive spinal infection in October 2020. Pt was on keflex for a couple of months Hypertension. Anemia s/p PRBCs Yeast in groin improved Thrombocytopenia resolved Elevated serum kappa and lambda Plan: Plan of Care C spine and T spine MRI noted, with new epidural and other collection, ?? post surgery changes, ? new infection or reactivation of infection pt clinically does not have any signs of infection of infection, sed rate 31 and crp not very high 2.1 no other clinical evidence for infection Dr. Bowie concerned about infection with the new changes so decision made to treat with a new full course of IV antibiotics. 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
[2021-02-07 11:00] VITALS: BP 125/71
--- NOTE | 2021-02-07 11:03 | PDOC ---
PROGRESS NOTES Date of Service: DATE: 02/07/21 TIME: 11:03 Chief Complaint Chief Complaint impression L2-L5 spinal canal stenosis with urinary retention - retention more likely medication side effect. Cervical spine stenosis History osteomyelitis DM2 - sliding scale Normocytic anemia - s/p transfusion DENIES HX Colonoscopy but is poor historian Thrombocytopenia - hematology following Hypothyroidism Chronic pain Right total knee replacement History of femur fracture October 2020 osteomyelitis T11-12 - MRI changes in cervical and thoracic spine likely needs IV treatment Complete to near complete resolution of previously demonstrated epidural enhancement consistent with abscess throughout the and majority of the thoracic levels, consistent with interval treatment response. There is a new small enhancing ventral epidural collection measuring 2 mm in thickness at T1-T2 which is likely infectious given extensive adjacent marrow edema involving the posterior elements and surrounding soft tissues at C7-T1. There are new small peripherally enhancing fluid collections posterior to the facet joints at this level and within the left dorsal central canal which may be due to superinfected synovial cysts or abscesses. dilation of a segment of colon measuring up to 6.5 cm. / uncertain clinical significance, obstruction or focal ileus could have this appearance. Plan: Will resume his current antibiotic treatment Hemoglobin & hematocrit 8.8 and 25.6 respectively (11/16/2020); hemoglobin 7.1 and hematocrit 22.9 on admission. Will continue to monitor and transfuse as needed. Resume home medications FEN - Cardiac diet PPX - Heparin FULL CODE Dispo - inpatient for above HEME consult Continue dapto and meropenem , Cont Micafungin GI consult guiac stools CEA 37 min pt exam, chart review, > 50% of time spent with exam, chart review, pt care coordination Advance Care Planning: Total time spent [id number] with patient 16 minutes in discussion with goals of care, comfort care, end-of-life care, pain management, code status; patient names his (Radha Padilla) as surrogate decision-maker. History of Present Illness History of Present Illness impression Mr Byrnes is a 61-year-old male PMHx hypothyroidism, chronic pain, hernia, back surgery, right total knee replacement, and history of femur fracture and October 2020 osteomyelitis s/p cervical, thoracic, and lumbar epidural abscess drainage who presents to the ED with complaints of urinary retention. Patient states he has not urinated in the past 2 days prior to admit with associated bladder distention. He was recently admitted on 11/02/2020 for spinal epidural abscess, paraspinal cervical abscess, and osteomyelitis. He states he is currently on an antibiotic 3 times daily, but cannot member the name of this antibiotic. CT lumbar spine obtained in the ED showed redemonstrated changes of discitis osteomyelitis at L3-L4 with at least moderate spinal canal stenosis at that level L2-L5. Coello catheter was placed in the ED with reportedly 1000 mL urine output. Patient states he feels significantly better after having Coello placed, but is also reports chronic right knee pain. He has had right knee pain over t his past 3 years since total knee replacement, but states his pain is worsened over the past 3 days causing him difficulty moving. States his knee is slightly more mobile after pain medication he received in the ED. Neurosurgery was consulted in the ED and requesting admission. Admitted patient for further medical management. 01/27: Afebrile. Discussed with neurosurgery and ID his recent MRI is actually improved. He discloses to me that prior to his complicated hospital stay he had actually been weaned down from 150 mg daily of methadone for chronic pain to 10 mg 3 times daily and has had trouble having anyone to prescribe methadone for him. He continues to ask for pain medication regularly. Discussed complications of urinary retention related to chronic opioid therapy. 01/28: Afebrile. Platelets still low normal still low. Coello out today start on methadone per PMR. MRI reviewed with ID and neurosurgery, given MRI findings and thoracic and cervical areas changed likely persistent infection. Voiding trial today. PICC inserted 01/29: Afebrile overnight. Hemoglobin dropped below 7. Pain better controlled on methadone. No residual on PVR. 1u PRBC with good effect 01/30: Afebrile. Hb dropped to 6.8 again. 11 unit of blood transfusing. He actually feels better on the methadone is a little bit stronger. No more urinary retention. Afebrile. Hb 7.9 posttransfusion. Platelets up to 108. Feeling improved. - L2-L5 spinal canal stenosis with urinary retention - retention more likely medication side effect. Cervical spine stenosis History osteomyelitis DM2 - sliding scale Normocytic anemia - s/p transfusion Thrombocytopenia - hematology following Hypothyroidism FEN - Cardiac diet PPX - Heparin FULL CODE Dispo - inpatient for above HEME consult Continue dapto and meropenem , Cont Micafungin 37 min pt exam, chart review, > 50% of time spent with exam, chart review, pt care coordination 6-16 L2-L5 spinal canal stenosis with urinary retention - retention more likely medication side effect. Cervical spine stenosis History osteomyelitis DM2 - sliding scale Normocytic anemia - s/p transfusion Thrombocytopenia - hematology following Hypothyroidism FEN - Cardiac diet PPX - Heparin FULL CODE Dispo - inpatient for above HEME consult Continue dapto and meropenem , Cont Micafungin d/w rn * 2 weeks Discharge Recommendations * Snf Unit * * * 6-17 L2-L5 spinal canal stenosis with urinary retention - retention more likely medication side effect. Cervical spine stenosis History osteomyelitis DM2 - sliding scale Normocytic anemia - s/p transfusion Thrombocytopenia - hematology following Hypothyroidism FEN - Cardiac diet PPX - Heparin FULL CODE Dispo - inpatient for above HEME consult Continue dapto and meropenem , Cont Micafungin d/w rn * 2 weeks Discharge Recommendations * Snf Unit * * Meropenem versus Zosyn 13.5 g daily continuous infusion versus IV Invanz 1 g daily If Dapto is not an option, next choice would be IV dalbavancin 1500 mg q. weekly for 6 weeks Cont Micafungin while here 6-18 L2-L5 spinal canal stenosis with urinary retention - retention more likely medication side effect. Cervical spine stenosis History osteomyelitis DM2 - sliding scale Normocytic anemia - s/p transfusion Thrombocytopenia - hematology following Hypothyroidism FEN - Cardiac diet PPX - Heparin FULL CODE Dispo - inpatient for above HEME consult Continue dapto and meropenem , Cont Micafungin d/w rn Other options are Meropenem versus Zosyn 13.5 g daily continuous infusion versus IV Invanz 1 g daily If Dapto is not an option, next choice would be IV dalbavancin 1500 mg q. weekly Total duration will be at least 6 weeks * 2 weeks Discharge Recommendations * Snf Unit Meropenem versus Zosyn 13.5 g daily continuous infusion versus IV Invanz 1 g daily If Dapto is not an option, next choice would be IV dalbavancin 1500 mg q. weekly for 6 weeks Cont Micafungin while here 6-19 L2-L5 spinal canal stenosis with urinary retention - retention more likely medication side effect. Cervical spine stenosis History osteomyelitis DM2 - sliding scale Normocytic anemia - s/p transfusion Thrombocytopenia - hematology following Hypothyroidism FEN - Cardiac diet PPX - Heparin FULL CODE Dispo - inpatient for above HEME consult Continue dapto and meropenem , Cont Micafungin d/w rn Other options are Meropenem versus Zosyn 13.5 g daily continuous infusion versus IV Invanz 1 g daily If Dapto is not an option, next choice would be IV dalbavancin 1500 mg q. weekly Total duration will be at least 6 weeks * 2 weeks Discharge Recommendations * Snf Unit Meropenem versus Zosyn 13.5 g daily continuous infusion versus IV Invanz 1 g daily If Dapto is not an option, next choice would be IV dalbavancin 1500 mg q. weekly for 6 weeks Cont Micafungin while here patient request to stay until monday due to his having neurosurgery here Monday, i discussed this with [facility] home supervisor on 2 nd floor at 11 AM 6-19 Vitals Vitals Vital Signs Date Time Temp Pulse Resp B/P (MAP) Pulse Ox O2 Delivery O2 Flow Rate FiO2 02/07/21 07:36 67 116/62 02/07/21 07:00 98.1 17 97 Room Air 98.1 Physical Exam Physical Exam GENERAL: alert awake, sitting in bed appears comfortable HEENT: Normal conjunctivae. Oral cavity clear NECK: Supple. No JVP, no lymphadenopathy. LUNGS: Clear. HEART: S1, S2 regular. ABDOMEN: Soft, nontender. EXTREMITIES: No edema or cyanosis. Right knee wo redness/warmth/swelling. SKIN: No signs of gen rash. Groin yeast some better,dry flaky skin no Coello NEUROLOGIC: Alert, awake, and appropriate. MSK scar over cervical spine, lumbar spine healed some paraspinal pain in the low back, no dec in range of motion at neck RUE-PICC (01/28) clean General: Alert, Oriented X3, Cooperative, No acute distress Heart: Regular rate, Normal S1, Normal S2 Lungs: Clear Abdomen: Normal bowel sounds, Soft, No tenderness Extremities: No clubbing, No cyanosis Skin: No significant lesion Assessment and Plan Assessmemt and Plan Problems Medical Problems: (1) Urinary retention Status: Acute Comment Review of Relevant I have reviewed the following items almas (where applicable) has been applied. Labs Microbiology 01/26/21 Urine Culture - Final, Complete Medications Current Medications Iohexol (Omnipaque 300 Mg/ml) 75 ml 1X ONCE IV Last administered on 01/26/21at 14:54; Start 01/26/21 at 14:30; Stop 01/26/21 at 14:31; Status DC Info (CONTRAST GIVEN -- Rx MONITORING) 1 each PRN DAILY PRN MC SEE COMMENTS; Start 01/26/21 at 14:30; Stop 01/28/21 at 14:29; Status DC Fentanyl Citrate (Fentanyl 2ml Vial) 50 mcg 1X ONCE IV Last administered on 01/26/21at 14:59; Start 01/26/21 at 14:30; Stop 01/26/21 at 14:31; Status DC Ondansetron HCl (Zofran) 4 mg 1X ONCE IV Last administered on 01/26/21at 14:59; Start 01/26/21 at 14:30; Stop 01/26/21 at 14:31; Status DC Insulin Human Lispro (HumaLOG) 0-7 UNITS TIDWMEALS SQ ; Start 01/27/21 at 08:00; Stop 01/29/21 at 11:43; Status DC Dextrose (Dextrose 50%-Water Syringe) 12.5 gm PRN Q15MIN PRN IV SEE COMMENTS; Start 01/26/21 at 18:15; Stop 01/29/21 at 11:43; Status DC Dextrose (Iv Dextrose 5%) 250 ml PRN Q15MIN PRN IV SEE COMMENTS; Start 01/26/21 at 18:15; Status UNV Ondansetron HCl (Zofran) 4 mg PRN Q6HRS PRN IVP NAUSEA/VOMITING Last adminis tered on 01/28/21at 04:08; Start 01/26/21 at 18:15 Al Hydroxide/Mg Hydroxide (Mylanta Plus Xs) 30 ml PRN Q3HRS PRN PO HEARTBURN / GAS; Start 01/26/21 at 18:15 Calcium Carbonate/ Glycine (Tums) 500 mg PRN Q3HRS PRN PO UPSET STOMACH; Start 01/26/21 at 18:15 Zolpidem Tartrate (Ambien) 5 mg PRN QHS PRN PO INSOMNIA, MAY REPEAT IN 1HR Last administered on 01/27/21at 23:55; Start 01/26/21 at 18:15 Morphine Sulfate (Morphine Sulfate) 2 mg PRN Q1HR PRN IV MODERATE PAIN Last administered on 01/26/21at 19:27; Start 01/26/21 at 18:15; Stop 01/28/21 at 09:01; Status DC Acetaminophen/ Hydrocodone Bitart (Lortab 5/325) 1 tab PRN Q4HRS PRN PO MILD PAIN 1-3; Start 01/26/21 at 18:15; Stop 01/28/21 at 09:01; Status DC Acetaminophen/ Hydrocodone Bitart (Lortab 5/325) 2 tab PRN Q4HRS PRN PO MODERATE PAIN Last administered on 01/28/21at 04:39; Start 01/26/21 at 18:15; Stop 01/28/21 at 09:01; Status DC Hydromorphone HCl (Dilaudid) 2 mg PRN Q4HRS PRN PO MODERATE PAIN, 2ND CHOICE; Start 01/26/21 at 18:15; Stop 01/28/21 at 09:01; Status DC Hydromorphone HCl (Dilaudid) 4 mg PRN Q4HRS PRN PO SEVERE PAIN; Start 01/26/21 at 18:15; Stop 01/28/21 at 09:01; Status DC Acetaminophen (Tylenol) 650 mg PRN Q6HRS PRN PO Headaches, Temp > 101.5F Last administered on 01/30/21at 11:15; Start 01/26/21 at 18:15 Magnesium Hydroxide (Milk Of Magnesia) 2,400 mg PRN Q12HR PRN PO CONSTIPATION (1st Choice) Last administered on 01/27/21at 16:39; Start 01/26/21 at 18:15 Bisacodyl (Dulcolax Supp) 10 mg PRN DAILY PRN OR CONSTIPATION; Start 01/26/21 at 18:15 Heparin Sodium (Porcine) (Heparin Sodium) 5,000 unit Q8HRS SQ Last administered on 02/07/21at 06:07; Start 01/26/21 at 22:00 Hydromorphone HCl (Dilaudid) 2 mg PRN Q4HRS PRN IVP SEVERE PAIN Last administered on 01/27/21at 09:37; Start 01/26/21 at 18:15; Stop 01/28/21 at 09:01; Status DC Lorazepam (Ativan Inj) 2 mg PRN Q4HRS PRN IVP ANXIETY / AGITATION Last administered on 02/06/21at 23:44; Start 01/26/21 at 18:15 Trazodone HCl (Desyrel) 75 mg HS PO Last administered on 02/06/21at 20:35; Start 01/26/21 at 21:30 Clonazepam (KlonoPIN) 1 mg TID PO Last administered on 01/27/21at 09:32; Start 01/26/21 at 21:30; Stop 01/27/21 at 13:36; Status DC Cephalexin HCl (Keflex) 500 mg TID PO Last administered on 01/30/21at 09:33; Start 01/27/21 at 09:00; Stop 01/30/21 at 13:51; Status DC Lactobacillus Rhamnosus (Culturelle) 1 cap BID PO Last administered on 02/07/21at 07:35; Start 01/27/21 at 21:00 Clonazepam (KlonoPIN) 1 mg PRN TID PRN PO anxiety Last administered on 02/07/21at 07:36; Start 01/27/21 at 13:45 Gadoterate Meglumine (Clariscan) 17 ml 1X ONCE IVP Last administered on 01/27/21at 14:54; Start 01/27/21 at 13:45; Stop 01/27/21 at 13:49; Status DC Senna/Docusate Sodium (Senna Plus) 1 tab BID PO Last administered on 02/06/21at 20:34; Start 01/27/21 at 21:00 Polyethylene Glycol (miraLAX PACKET) 17 gm DAILY PO Last administered on 02/04/21at 08:00; Start 01/28/21 at 09:00 Bisacodyl (Dulcolax Tab) 10 mg PRN DAILY PRN PO CONSTIPATION (2nd Choice) Last administered on 01/27/21at 16:40; Start 01/27/21 at 16:15 Tamsulosin HCl (Flomax) 0.4 mg QHS PO Last administered on 02/06/21at 20:35; Start 01/27/21 at 21:00 Polyethylene Glycol (miraLAX PACKET) 17 gm DAILY PO ; Start 01/27/21 at 16:15; Status UNV Senna/Docusate Sodium (Senna Plus) 1 tab DAILY PO ; Start 01/27/21 at 16:15; Status UNV Gabapentin (Neurontin) 300 mg QID PO Last administered on 02/07/21at 07:36; Start 01/28/21 at 09:30 Levothyroxine Sodium (Synthroid) 200 mcg DAILY06 PO Last administered on 02/07/21at 06:03; Start 01/28/21 at 09:30 Methadone HCl (Dolophine) 10 mg TID PO Last administered on 02/07/21at 07:35; Start 01/28/21 at 09:00 Daptomycin 450 mg/ Sodium Chloride 50 ml @ 100 mls/hr Q24H IV Last administered on 02/06/21at 12:27; Start 01/28/21 at 12:30 Meropenem 500 mg/ Sodium Chloride 50 ml @ 100 mls/hr Q8HRS IV Last administered on 01/30/21at 06:04; Start 01/28/21 at 14:00; Stop 01/30/21 at 15:56; Status DC Lidocaine HCl (Buffered Lidocaine 1%) 3 ml STK-MED ONCE .ROUTE ; Start 01/28/21 at 14:32; Stop 01/28/21 at 14:33; Status DC Lidocaine HCl (Buffered Lidocaine 1%) 3 ml 1X ONCE INJ Last administered on 01/28/21at 15:22; Start 01/28/21 at 15:15; Stop 01/28/21 at 15:16; Status DC Cyanocobalamin (Vitamin B-12 Inj) 1,000 mcg 1X ONCE IM Last administered on 01/29/21at 09:28; Start 01/29/21 at 07:30; Stop 01/29/21 at 07:31; Status DC Meropenem 500 mg/ Sodium Chloride 50 ml @ 100 mls/hr Q6HRS IV Last administered on 02/07/21at 06:03; Start 01/30/21 at 18:00 Micafungin Sodium 100 mg/Dextrose 100 ml @ 100 mls/hr Q24H IV Last administered on 02/06/21at 17:56; Start 01/30/21 at 17:00 Pantoprazole Sodium (PROTONIX VIAL for IV PUSH) 40 mg DAILYAC IVP Last administered on 02/02/21at 09:25; Start 02/02/21 at 07:30; Stop 02/02/21 at 10:20; Status DC Pantoprazole Sodium (Protonix) 40 mg DAILYAC PO Last administered on 02/07/21at 07:35; Start 02/03/21 at 07:30 Atenolol (Tenormin) 50 mg DAILY PO Last administered on 02/07/21at 07:36; Start 02/04/21 at 15:00 Docusate Sodium (Colace) 100 mg DAILY PO Last administered on 02/06/21at 08:15; Start 02/04/21 at 15:00 Ferrous Sulfate (Feosol) 325 mg BIDWMEALS PO Last administered on 02/07/21at 07:36; Start 02/04/21 at 17:00 Hydrochlorothiazide (Hydrodiuril) 50 mg DAILY PO Last administered on 02/07/21at 07:36; Start 02/04/21 at 15:00 Oxycodone/ Acetaminophen (Percocet 5/325) 1 tab PRN Q6HRS PRN PO PAIN; Start 02/04/21 at 13:15 Nifedipine (Procardia Xl) 30 mg DAILY PO Last administered on 02/07/21at 07:35; Start 02/04/21 at 15:00 Metformin HCl (Glucophage Xr) 500 mg DAILYWBKFT PO Last administered on 02/07/21at 07:35; Start 02/04/21 at 15:00 Active Scripts Active Percocet 5-325 Mg Tablet (Oxycodone/Acetaminophen) 1 Each Tablet 1 Tab PO PRN Q6HRS PRN 5 Days Metformin Hcl Er (Metformin Hcl) 500 Mg Tab.er.24h 500 Mg PO DAILYWBKFT 30 Days Reported Klonopin (Clonazepam) 1 Mg Tablet 1 Tab PO TID Trazodone Hcl 100 Mg Tablet 75 Mg PO HS Keflex (Cephalexin) 750 Mg Capsule 500 Mg PO TID Ferrous Sulfate 325 Mg Tablet 1 Tab PO BID Cyclobenzaprine Hcl 10 Mg Tablet 10 Mg PO HS Nifedipine Er (Nifedipine) 30 Mg Tablet.er 30 Mg PO HS Atenolol 50 Mg Tablet 50 Mg PO DAILY Losartan Potassium 100 Mg Tablet 100 Mg PO DAILY16 Colace (Docusate Sodium) 100 Mg Capsule 100 Mg PO DAILY Gabapentin 600 Mg Tablet 1,800 Mg PO BID Levothyroxine Sodium 200 Mcg Tablet 200 Mcg PO DAILYAC Hydrochlorothiazide Tablet (Hydrochlorothiazide) 25 Mg Tablet 50 Mg PO DAILY Vitals/I & O Vital Sign - Last 24 Hours 02/06/21 02/06/21 02/06/21 02/07/21 15:00 19:00 23:00 03:00 Temp 98.1 98.1 97.4 97.9 98.1 98.1 97.4 97.9 Pulse 71 59 77 71 Resp 17 16 18 16 B/P (MAP) 110/59 (76) 111/59 (76) 127/75 (92) 116/65 (82) Pulse Ox 95 94 92 92 O2 Delivery Room Air Room Air Room Air Room Air 02/07/21 02/07/21 02/07/21 07:00 07:35 07:36 Temp 98.1 98.1 Pulse 67 67 67 Resp 17 B/P (MAP) 116/62 (80) 116/62 116/62 Pulse Ox 97 O2 Delivery Room Air Intake and Output 02/06/21 02/06/21 02/07/21 15:00 23:00 07:00 Intake Total 250 ml 300 ml 200 ml Output Total 450 ml Balance 250 ml 300 ml -250 ml Justicifation of Admission Dx: Justifications for Admission: Justification of Admission Dx: Yes KEITH CHIN MD Feb 07, 2021 11:03
[2021-02-07] MEDS: DAPTOmycin (GENERIC) IVPB 450 MG in IV NORMAL SALINE 50ML 50 ML IV SCH (13:54)
[2021-02-07 14:44] VITALS: BP 122/67
[2021-02-07] MEDS: MICAFUNGIN 100 MG in IV DEXTROSE 5% 100ML 100 ML IV SCH (16:56)
[2021-02-07 19:00] VITALS: BP 106/66
[2021-02-07] MEDS: TAMSULOSIN 0.4 MG CAP.ER.24H. PO SCH (20:39)
[2021-02-07] MEDS: traZODone 50 MG TABLET. PO SCH (20:39)
[2021-02-07 22:55] VITALS: BP 129/77
[2021-02-08] MEDS: MEROPENEM 500 MG in IV NORMAL SALINE 50ML 50 ML IV SCH ×4 (00:02→18:38)
[2021-02-08 03:00] VITALS: BP 131/72
[2021-02-08] MEDS: LEVOTHYROXINE 100 MCG TABLET PO SCH (06:46)
[2021-02-08] MEDS: HEPARIN for SUB-Q USE 5,000 UNIT/ML VIAL. SQ SCH ×2 (06:51→14:23)
[2021-02-08 07:00] VITALS: BP 132/75
[2021-02-08] MEDS: DOCUSATE SODIUM 100 MG CAPSULE. PO SCH (08:13)
[2021-02-08] MEDS: POLYETHYLENE GLYCOL 3350 17 GM PACKET. PO SCH (08:14)
[2021-02-08] MEDS: SENNOSIDES/DOCUSATE 8.6/50MG TABLET. PO SCH (08:14)
--- NOTE | 2021-02-08 08:48 | PDOC ---
PROGRESS NOTES Date of Service: DATE: 02/08/21 TIME: 08:46 Chief Complaint Chief Complaint impression L2-L5 spinal canal stenosis with urinary retention - retention more likely medication side effect. Cervical spine stenosis History osteomyelitis DM2 - sliding scale Normocytic anemia - s/p transfusion DENIES HX Colonoscopy but is poor historian Thrombocytopenia - hematology following Hypothyroidism Chronic pain Right total knee replacement History of femur fracture October 2020 osteomyelitis T11-12 - MRI changes in cervical and thoracic spine likely needs IV treatment Complete to near complete resolution of previously demonstrated epidural enhancement consistent with abscess throughout the and majority of the thoracic levels, consistent with interval treatment response. There is a new small enhancing ventral epidural collection measuring 2 mm in thickness at T1-T2 which is likely infectious given extensive adjacent marrow edema involving the posterior elements and surrounding soft tissues at C7-T1. There are new small peripherally enhancing fluid collections posterior to the facet joints at this level and within the left dorsal central canal which may be due to superinfected synovial cysts or abscesses. dilation of a segment of colon measuring up to 6.5 cm. / uncertain clinical significance, obstruction or focal ileus could have this appearance. Plan: Will resume his current antibiotic treatment Hemoglobin & hematocrit 8.8 and 25.6 respectively (11/16/2020); hemoglobin 7.1 and hematocrit 22.9 on admission. Will continue to monitor and transfuse as needed. Resume home medications FEN - Cardiac diet PPX - Heparin FULL CODE Dispo - inpatient for above HEME consult Continue dapto and meropenem , Cont Micafungin GI consult guiac stools CEA 37 min pt exam, chart review, > 50% of time spent with exam, chart review, pt care coordination Advance Care Planning: Total time spent [id number] with patient 16 minutes in discussion with goals of care, comfort care, end-of-life care, pain management, code status; patient names his (Radha Padilla) as surrogate decision-maker. History of Present Illness History of Present Illness impression Mr Byrnes is a 61-year-old male PMHx hypothyroidism, chronic pain, hernia, back surgery, right total knee replacement, and history of femur fracture and October 2020 osteomyelitis s/p cervical, thoracic, and lumbar epidural abscess drainage who presents to the ED with complaints of urinary retention. Patient states he has not urinated in the past 2 days prior to admit with associated bladder distention. He was recently admitted on 11/02/2020 for spinal epidural abscess, paraspinal cervical abscess, and osteomyelitis. He states he is currently on an antibiotic 3 times daily, but cannot member the name of this antibiotic. CT lumbar spine obtained in the ED showed redemonstrated changes of discitis osteomyelitis at L3-L4 with at least moderate spinal canal stenosis at that level L2-L5. Coello catheter was placed in the ED with reportedly 1000 mL urine output. Patient states he feels significantly better after having Coello placed, but is also reports chronic right knee pain. He has had right knee pain over t his past 3 years since total knee replacement, but states his pain is worsened over the past 3 days causing him difficulty moving. States his knee is slightly more mobile after pain medication he received in the ED. Neurosurgery was consulted in the ED and requesting admission. Admitted patient for further medical management. 01/27: Afebrile. Discussed with neurosurgery and ID his recent MRI is actually improved. He discloses to me that prior to his complicated hospital stay he had actually been weaned down from 150 mg daily of methadone for chronic pain to 10 mg 3 times daily and has had trouble having anyone to prescribe methadone for him. He continues to ask for pain medication regularly. Discussed complications of urinary retention related to chronic opioid therapy. 01/28: Afebrile. Platelets still low normal still low. Coello out today start on methadone per PMR. MRI reviewed with ID and neurosurgery, given MRI findings and thoracic and cervical areas changed likely persistent infection. Voiding trial today. PICC inserted 01/29: Afebrile overnight. Hemoglobin dropped below 7. Pain better controlled on methadone. No residual on PVR. 1u PRBC with good effect 01/30: Afebrile. Hb dropped to 6.8 again. 11 unit of blood transfusing. He actually feels better on the methadone is a little bit stronger. No more urinary retention. Afebrile. Hb 7.9 posttransfusion. Platelets up to 108. Feeling improved. - L2-L5 spinal canal stenosis with urinary retention - retention more likely medication side effect. Cervical spine stenosis History osteomyelitis DM2 - sliding scale Normocytic anemia - s/p transfusion Thrombocytopenia - hematology following Hypothyroidism FEN - Cardiac diet PPX - Heparin FULL CODE Dispo - inpatient for above HEME consult Continue dapto and meropenem , Cont Micafungin 37 min pt exam, chart review, > 50% of time spent with exam, chart review, pt care coordination 6-16 L2-L5 spinal canal stenosis with urinary retention - retention more likely medication side effect. Cervical spine stenosis History osteomyelitis DM2 - sliding scale Normocytic anemia - s/p transfusion Thrombocytopenia - hematology following Hypothyroidism FEN - Cardiac diet PPX - Heparin FULL CODE Dispo - inpatient for above HEME consult Continue dapto and meropenem , Cont Micafungin d/w rn * 2 weeks Discharge Recommendations * [facility] * * * 6-17 L2-L5 spinal canal stenosis with urinary retention - retention more likely medication side effect. Cervical spine stenosis History osteomyelitis DM2 - sliding scale Normocytic anemia - s/p transfusion Thrombocytopenia - hematology following Hypothyroidism FEN - Cardiac diet PPX - Heparin FULL CODE Dispo - inpatient for above HEME consult Continue dapto and meropenem , Cont Micafungin d/w rn * 2 weeks Discharge Recommendations * [facility] * * Meropenem versus Zosyn 13.5 g daily continuous infusion versus IV Invanz 1 g daily If Dapto is not an option, next choice would be IV dalbavancin 1500 mg q. weekly for 6 weeks Cont Micafungin while here 6-18 L2-L5 spinal canal stenosis with urinary retention - retention more likely medication side effect. Cervical spine stenosis History osteomyelitis DM2 - sliding scale Normocytic anemia - s/p transfusion Thrombocytopenia - hematology following Hypothyroidism FEN - Cardiac diet PPX - Heparin FULL CODE Dispo - inpatient for above HEME consult Continue dapto and meropenem , Cont Micafungin d/w rn Other options are Meropenem versus Zosyn 13.5 g daily continuous infusion versus IV Invanz 1 g daily If Dapto is not an option, next choice would be IV dalbavancin 1500 mg q. weekly Total duration will be at least 6 weeks * 2 weeks Discharge Recommendations * [facility] Meropenem versus Zosyn 13.5 g daily continuous infusion versus IV Invanz 1 g daily If Dapto is not an option, next choice would be IV dalbavancin 1500 mg q. weekly for 6 weeks Cont Micafungin while here 6-19 L2-L5 spinal canal stenosis with urinary retention - retention more likely medication side effect. Cervical spine stenosis History osteomyelitis DM2 - sliding scale Normocytic anemia - s/p transfusion Thrombocytopenia - hematology following Hypothyroidism FEN - Cardiac diet PPX - Heparin FULL CODE Dispo - inpatient for above HEME consult Continue dapto and meropenem , Cont Micafungin d/w rn Other options are Meropenem versus Zosyn 13.5 g daily continuous infusion versus IV Invanz 1 g daily If Dapto is not an option, next choice would be IV dalbavancin 1500 mg q. weekly Total duration will be at least 6 weeks * 2 weeks Discharge Recommendations * [facility] Meropenem versus Zosyn 13.5 g daily continuous infusion versus IV Invanz 1 g daily If Dapto is not an option, next choice would be IV dalbavancin 1500 mg q. weekly for 6 weeks Cont Micafungin while here patient request to stay until monday due to his having neurosurgery here Monday, i discussed this with Margaret Nursing operation supervisor on 2 nd floor at 11 AM 02-06 L2-L5 spinal canal stenosis with urinary retention - retention more likely medication side effect. Cervical spine stenosis History osteomyelitis DM2 - sliding scale Normocytic anemia - s/p transfusion Thrombocytopenia - hematology following Hypothyroidism FEN - Cardiac diet PPX - Heparin FULL CODE Dispo - inpatient for above HEME consult Continue dapto and meropenem , Cont Micafungin d/w rn Other options are Meropenem versus Zosyn 13.5 g daily continuous infusion versus IV Invanz 1 g daily If Dapto is not an option, next choice would be IV dalbavancin 1500 mg q. weekly Total duration will be at least 6 weeks * 2 weeks Discharge Recommendations * [facility] Meropenem versus Zosyn 13.5 g daily continuous infusion versus IV Invanz 1 g daily If Dapto is not an option, next choice would be IV dalbavancin 1500 mg q. weekly for 6 weeks Cont Micafungin while here patient request to stay until monday due to his having neurosurgery here Monday, i discussed this with Margaret Nursing operation supervisor on 2 nd floor at 11 AM 02-06 fell yesterday walking out of bathroom hitting floor c/o low back pain AND RIGHT KNEE PAIN L/S STAT PENDING X RAY L2-L5 spinal canal stenosis with urinary retention - retention more likely medication side effect. Cervical spine stenosis History osteomyelitis DM2 - sliding scale Normocytic anemia - s/p transfusion Thrombocytopenia - hematology following Hypothyroidism FEN - Cardiac diet PPX - Heparin FULL CODE Dispo - inpatient for above HEME consult Continue dapto and meropenem , Cont Micafungin d/w rn Other options are Meropenem versus Zosyn 13.5 g daily continuous infusion versus IV Invanz 1 g daily If Dapto is not an option, next choice would be IV dalbavancin 1500 mg q. weekly Total duration will be at least 6 weeks * 2 weeks Discharge Recommendations * [facility] Meropenem versus Zosyn 13.5 g daily continuous infusion versus IV Invanz 1 g daily If Dapto is not an option, next choice would be IV dalbavancin 1500 mg q. weekly for 6 weeks Cont Micafungin while here patient request to stay until monday due to his having neurosurgery here Monday, i discussed this with Margaret Nursing operation supervisor on 2 nd floor at 11 AM 6-19 Vitals Vitals Vital Signs Date Time Temp Pulse Resp B/P (MAP) Pulse Ox O2 Delivery O2 Flow Rate FiO2 02/08/21 07:00 98.4 74 14 132/75 (94) 92 Room Air 98.4 Physical Exam Physical Exam GENERAL: alert awake, sitting in bed appears comfortable HEENT: Normal conjunctivae. Oral cavity clear NECK: Supple. No JVP, no lymphadenopathy. LUNGS: Clear. HEART: S1, S2 regular. ABDOMEN: Soft, nontender. EXTREMITIES: No edema or cyanosis. Right knee wo redness/warmth/swelling. SKIN: No signs of gen rash. Groin yeast some better,dry flaky skin no Coello NEUROLOGIC: Alert, awake, and appropriate. MSK scar over cervical spine, lumbar spine healed some paraspinal pain in the low back, no dec in range of motion at neck RUE-PICC (01/28) clean General: Alert, Oriented X3, Cooperative, No acute distress Heart: Regular rate, Normal S1, Normal S2 Lungs: Clear Abdomen: Normal bowel sounds, Soft, No tenderness Extremities: No clubbing, No cyanosis Skin: No significant lesion Assessment and Plan Assessmemt and Plan Problems Medical Problems: (1) Urinary retention Status: Acute Comment Review of Relevant I have reviewed the following items almas (where applicable) has been applied. Labs Microbiology 01/26/21 Urine Culture - Final, Complete Medications Current Medications Iohexol (Omnipaque 300 Mg/ml) 75 ml 1X ONCE IV Last administered on 01/26/21at 14:54; Start 01/26/21 at 14:30; Stop 01/26/21 at 14:31; Status DC Info (CONTRAST GIVEN -- Rx MONITORING) 1 each PRN DAILY PRN MC SEE COMMENTS; Start 01/26/21 at 14:30; Stop 01/28/21 at 14:29; Status DC Fentanyl Citrate (Fentanyl 2ml Vial) 50 mcg 1X ONCE IV Last administered on 01/26/21at 14:59; Start 01/26/21 at 14:30; Stop 01/26/21 at 14:31; Status DC Ondansetron HCl (Zofran) 4 mg 1X ONCE IV Last administered on 01/26/21at 14:59; Start 01/26/21 at 14:30; Stop 01/26/21 at 14:31; Status DC Insulin Human Lispro (HumaLOG) 0-7 UNITS TIDWMEALS SQ ; Start 01/27/21 at 08:00; Stop 01/29/21 at 11:43; Status DC Dextrose (Dextrose 50%-Water Syringe) 12.5 gm PRN Q15MIN PRN IV SEE COMMENTS; Start 01/26/21 at 18:15; Stop 01/29/21 at 11:43; Status DC Dextrose (Iv Dextrose 5%) 250 ml PRN Q15MIN PRN IV SEE COMMENTS; Start 01/26/21 at 18:15; Status UNV Ondansetron HCl (Zofran) 4 mg PRN Q6HRS PRN IVP NAUSEA/VOMITING Last administered on 01/28/21at 04:08; Start 01/26/21 at 18:15 Al Hydroxide/Mg Hydroxide (Mylanta Plus Xs) 30 ml PRN Q3HRS PRN PO HEARTBURN / GAS; Start 01/26/21 at 18:15 Calcium Carbonate/ Glycine (Tums) 500 mg PRN Q3HRS PRN PO UPSET STOMACH; Start 01/26/21 at 18:15 Zolpidem Tartrate (Ambien) 5 mg PRN QHS PRN PO INSOMNIA, MAY REPEAT IN 1HR Last administered on 01/27/21at 23:55; Start 01/26/21 at 18:15 Morphine Sulfate (Morphine Sulfate) 2 mg PRN Q1HR PRN IV MODERATE PAIN Last administered on 01/26/21at 19:27; Start 01/26/21 at 18:15; Stop 01/28/21 at 09:01; Status DC Acetaminophen/ Hydrocodone Bitart (Lortab 5/325) 1 tab PRN Q4HRS PRN PO MILD PAIN 1-3; Start 01/26/21 at 18:15; Stop 01/28/21 at 09:01; Status DC Acetaminophen/ Hydrocodone Bitart (Lortab 5/325) 2 tab PRN Q4HRS PRN PO MODERATE PAIN Last administered on 01/28/21at 04:39; Start 01/26/21 at 18:15; Stop 01/28/21 at 09:01; Status DC Hydromorphone HCl (Dilaudid) 2 mg PRN Q4HRS PRN PO MODERATE PAIN, 2ND CHOICE; Start 01/26/21 at 18:15; Stop 01/28/21 at 09:01; Status DC Hydromorphone HCl (Dilaudid) 4 mg PRN Q4HRS PRN PO SEVERE PAIN; Start 01/26/21 at 18:15; Stop 01/28/21 at 09:01; Status DC Acetaminophen (Tylenol) 650 mg PRN Q6HRS PRN PO Headaches, Temp > 101.5F Last administered on 01/30/21at 11:15; Start 01/26/21 at 18:15 Magnesium Hydroxide (Milk Of Magnesia) 2,400 mg PRN Q12HR PRN PO CONSTIPATION (1st Choice) Last administered on 01/27/21at 16:39; Start 01/26/21 at 18:15 Bisacodyl (Dulcolax Supp) 10 mg PRN DAILY PRN CA CONSTIPATION; Start 01/26/21 at 18:15 Heparin Sodium (Porcine) (Heparin Sodium) 5,000 unit Q8HRS SQ Last administered on 02/08/21at 06:51; Start 01/26/21 at 22:00 Hydromorphone HCl (Dilaudid) 2 mg PRN Q4HRS PRN IVP SEVERE PAIN Last administered on 01/27/21at 09:37; Start 01/26/21 at 18:15; Stop 01/28/21 at 09:01; Status DC Lorazepam (Ativan Inj) 2 mg PRN Q4HRS PRN IVP ANXIETY / AGITATION Last administered on 02/07/21at 11:31; Start 01/26/21 at 18:15 Trazodone HCl (Desyrel) 75 mg HS PO Last administered on 02/07/21at 20:39; Start 01/26/21 at 21:30 Clonazepam (KlonoPIN) 1 mg TID PO Last administered on 01/27/21 09:32; Start 01/26/21 at 21:30; Stop 01/27/21 at 13:36; Status DC Cephalexin HCl (Keflex) 500 mg TID PO Last administered on 01/30/21 09:33; Start 01/27/21 at 09:00; Stop 01/30/21 at 13:51; Status DC Lactobacillus Rhamnosus (Culturelle) 1 cap BID PO Last administered on 02/07/21at 20:39; Start 01/27/21 at 21:00 Clonazepam (KlonoPIN) 1 mg PRN TID PRN PO anxiety Last administered on 02/07/21at 20:40; Start 01/27/21 at 13:45 Gadoterate Meglumine (Clariscan) 17 ml 1X ONCE IVP Last administered on 01/27/21at 14:54; Start 01/27/21 at 13:45; Stop 01/27/21 at 13:49; Status DC Senna/Docusate Sodium (Senna Plus) 1 tab BID PO Last administered on 02/07/21at 20:40; Start 01/27/21 at 21:00 Polyethylene Glycol (miraLAX PACKET) 17 gm DAILY PO Last administered on 02/04/21at 08:00; Start 01/28/21 at 09:00 Bisacodyl (Dulcolax Tab) 10 mg PRN DAILY PRN PO CONSTIPATION (2nd Choice) Last administered on 01/27/21at 16:40; Start 01/27/21 at 16:15 Tamsulosin HCl (Flomax) 0.4 mg QHS PO Last administered on 02/07/21at 20:39; Start 01/27/21 at 21:00 Polyethylene Glycol (miraLAX PACKET) 17 gm DAILY PO ; Start 01/27/21 at 16:15; Status UNV Senna/Docusate Sodium (Senna Plus) 1 tab DAILY PO ; Start 01/27/21 at 16:15; Status UNV Gabapentin (Neurontin) 300 mg QID PO Last administered on 02/07/21at 20:39; Start 01/28/21 at 09:30 Levothyroxine Sodium (Synthroid) 200 mcg DAILY06 PO Last administered on 02/08/21at 06:46; Start 01/28/21 at 09:30 Methadone HCl (Dolophine) 10 mg TID PO Last administered on 02/07/21at 20:40; Start 01/28/21 at 09:00 Daptomycin 450 mg/ Sodium Chloride 50 ml @ 100 mls/hr Q24H IV Last administered on 02/07/21at 13:54; Start 01/28/21 at 12:30 Meropenem 500 mg/ Sodium Chloride 50 ml @ 100 mls/hr Q8HRS IV Last administered on 01/30/21at 06:04; Start 01/28/21 at 14:00; Stop 01/30/21 at 15:56; Status DC Lidocaine HCl (Buffered Lidocaine 1%) 3 ml STK-MED ONCE .ROUTE ; Start 01/28/21 at 14:32; Stop 01/28/21 at 14:33; Status DC Lidocaine HCl (Buffered Lidocaine 1%) 3 ml 1X ONCE INJ Last administered on 01/28/21at 15:22; Start 01/28/21 at 15:15; Stop 01/28/21 at 15:16; Status DC Cyanocobalamin (Vitamin B-12 Inj) 1,000 mcg 1X ONCE IM Last administered on 01/29/21at 09:28; Start 01/29/21 at 07:30; Stop 01/29/21 at 07:31; Status DC Meropenem 500 mg/ Sodium Chloride 50 ml @ 100 mls/hr Q6HRS IV Last administered on 02/08/21at 06:46; Start 01/30/21 at 18:00 Micafungin Sodium 100 mg/Dextrose 100 ml @ 100 mls/hr Q24H IV Last administered on 02/07/21at 16:56; Start 01/30/21 at 17:00 Pantoprazole Sodium (PROTONIX VIAL for IV PUSH) 40 mg DAILYAC IVP Last administered on 02/02/21at 09:25; Start 02/02/21 at 07:30; Stop 02/02/21 at 10:20; Status DC Pantoprazole Sodium (Protonix) 40 mg DAILYAC PO Last administered on 02/07/21at 07:35; Start 02/03/21 at 07:30 Atenolol (Tenormin) 50 mg DAILY PO Last administered on 02/07/21at 07:36; Start 02/04/21 at 15:00 Docusate Sodium (Colace) 100 mg DAILY PO Last administered on 02/06/21at 08:15; Start 02/04/21 at 15:00 Ferrous Sulfate (Feosol) 325 mg BIDWMEALS PO Last administered on 02/07/21at 16:56; Start 02/04/21 at 17:00 Hydrochlorothiazide (Hydrodiuril) 50 mg DAILY PO Last administered on 02/07/21at 07:36; Start 02/04/21 at 15:00 Oxycodone/ Acetaminophen (Percocet 5/325) 1 tab PRN Q6HRS PRN PO PAIN; Start 02/04/21 at 13:15 Nifedipine (Procardia Xl) 30 mg DAILY PO Last administered on 02/07/21at 07:35; Start 02/04/21 at 15:00 Metformin HCl (Glucophage Xr) 500 mg DAILYWBKFT PO Last administered on 02/07/21at 07:35; Start 02/04/21 at 15:00 Active Scripts Active Percocet 5-325 Mg Tablet (Oxycodone/Acetaminophen) 1 Each Tablet 1 Tab PO PRN Q6HRS PRN 5 Days Metformin Hcl Er (Metformin Hcl) 500 Mg Tab.er.24h 500 Mg PO DAILYWBKFT 30 Days Reported Klonopin (Clonazepam) 1 Mg Tablet 1 Tab PO TID Trazodone Hcl 100 Mg Tablet 75 Mg PO HS Keflex (Cephalexin) 750 Mg Capsule 500 Mg PO TID Ferrous Sulfate 325 Mg Tablet 1 Tab PO BID Cyclobenzaprine Hcl 10 Mg Tablet 10 Mg PO HS Nifedipine Er (Nifedipine) 30 Mg Tablet.er 30 Mg PO HS Atenolol 50 Mg Tablet 50 Mg PO DAILY Losartan Potassium 100 Mg Tablet 100 Mg PO DAILY16 Colace (Docusate Sodium) 100 Mg Capsule 100 Mg PO DAILY Gabapentin 600 Mg Tablet 1,800 Mg PO BID Levothyroxine Sodium 200 Mcg Tablet 200 Mcg PO DAILYAC Hydrochlorothiazide Tablet (Hydrochlorothiazide) 25 Mg Tablet 50 Mg PO DAILY Vitals/I & O Vital Sign - Last 24 Hours 02/07/21 02/07/21 02/07/21 02/07/21 11:00 14:44 19:00 20:00 Temp 98.4 98.4 98.0 98.4 98.4 98.0 Pulse 71 64 62 Resp 18 18 18 B/P (MAP) 125/71 (89) 122/67 (85) 106/66 (79) Pulse Ox 96 96 94 O2 Delivery Room Air Room Air Room Air Room Air 02/07/21 02/08/21 02/08/21 22:55 03:00 07:00 Temp 97.8 97.7 98.4 97.8 97.7 98.4 Pulse 73 68 74 Resp 18 18 14 B/P (MAP) 129/77 (94) 131/72 (91) 132/75 (94) Pulse Ox 93 92 92 O2 Delivery Room Air Room Air Room Air Intake and Output 02/07/21 02/07/21 02/08/21 15:00 23:00 07:00 Intake Total 200 ml 200 ml Output Total 250 ml 790 ml Balance -50 ml -590 ml Justicifation of Admission Dx: Justifications for Admission: Justification of Admission Dx: Yes KEITH CHIN MD Feb 08, 2021 08:48
--- NOTE | 2021-02-08 08:54 | PDOC ---
Infectious Disease Note Subjective: Subjective Patient without complaints Denies fever, nausea, vomiting, shortness of breath, diarrhea, abdominal pain, rash Otherwise as above Vital Signs: Vital Signs Vital Signs Date Time Temp Pulse Resp B/P (MAP) Pulse Ox O2 Delivery O2 Flow Rate FiO2 02/08/21 07:00 98.4 74 14 132/75 (94) 92 Room Air 98.4 Physical Exam: PHYSICAL EXAM GENERAL: alert awake, sitting in bed appears comfortable HEENT: Normal conjunctivae. Oral cavity clear NECK: Supple. No JVP, no lymphadenopathy. LUNGS: Clear. HEART: S1, S2 regular. ABDOMEN: Soft, nontender. EXTREMITIES: No edema or cyanosis. Right knee wo redness/warmth/swelling. SKIN: No signs of gen rash. Groin yeast some better,dry flaky skin no Coello NEUROLOGIC: Alert, awake, and appropriate. MSK scar over cervical spine, lumbar spine healed some paraspinal pain in the low back, no dec in range of motion at neck RUE-PICC (01/28) clean Medications: Inpatient Meds: Medications reviewed. Objective: Assessment: Low Back pain, most likely is musculoskeletal. Abnormal MRI possible reactivation or new infection Urinary retention. UC 20K JATIN DUBLINIENSIS, now resolved History of MSSA bacteremia and extensive spinal infection in October 2020. Pt was on keflex for a couple of months Hypertension. Anemia s/p PRBCs Yeast in groin improved Thrombocytopenia resolved Elevated serum kappa and lambda C spine and T spine MRI noted, with new epidural and other collection, ?? post surgery changes, ? new infection or reactivation of infection pt clinically does not have any signs of infection of infection, sed rate 31 and crp not very high 2.1 no other clinical evidence for infection Dr. Bowie concerned about infection with the new changes so decision made to treat with a new full course of IV antibiotics. The area and the amount of fluid collection is not enough for us to be able to obtain the sample for cultures Plan: Plan of Care Labs today Continue dapto and meropenem for discharge for 6 weeks Patient is not eligible for above antibiotics as outpatient /nh per discussion with social service due to insurance [facility] Continue Dapto and Zosyn, latter has been approved Total duration will be at least 6 weeks Cont Micafungin while here, then DC MOnitor labs weekly while on antibiotics PICC trouble lineman Pt and OT as tolerated F/U ID clinic on February 18 at 1;00 PM [phone] Discussed with nursing staff CORNELIA CAMARILLO MD Feb 08, 2021 08:53
--- NOTE | 2021-02-08 09:28 | PDOC ---
PROGRESS NOTES Date of Service DATE: 02/08/21 TIME: 09:26 Subjective Subjective No new complaints. Objective Objective Vital Signs Date Time Temp Pulse Resp B/P (MAP) Pulse Ox O2 Delivery O2 Flow Rate FiO2 02/08/21 07:00 98.4 74 14 132/75 (94) 92 Room Air 98.4 01/30/21 11:00 2.0 Intake and Output 02/08/21 07:00 Intake Total 400 ml Output Total 1040 ml Balance -640 ml Intake Oral 400 ml Output Urine Total 1040 ml # Voids 1 # Bowel Movements 1 Physical Exam Physical Exam He is alert,sitting in bed and eating breakfast and he continues to get up with roller waker. Assessment Assessment Problems Medical Problems: (1) Urinary retention Status: Acute Plan Plan of Care To SNF when arrangements are completed. Comment Review of Relevant I have reviewed the following items almas (where applicable) has been applied. Labs Microbiology 01/26/21 Urine Culture - Final, Complete Medications Current Medications Iohexol (Omnipaque 300 Mg/ml) 75 ml 1X ONCE IV Last administered on 01/26/21at 14:54; Start 01/26/21 at 14:30; Stop 01/26/21 at 14:31; Status DC Info (CONTRAST GIVEN -- Rx MONITORING) 1 each PRN DAILY PRN MC SEE COMMENTS; Start 01/26/21 at 14:30; Stop 01/28/21 at 14:29; Status DC Fentanyl Citrate (Fentanyl 2ml Vial) 50 mcg 1X ONCE IV Last administered on 01/26/21at 14:59; Start 01/26/21 at 14:30; Stop 01/26/21 at 14:31; Status DC Ondansetron HCl (Zofran) 4 mg 1X ONCE IV Last administered on 01/26/21at 14:59; Start 01/26/21 at 14:30; Stop 01/26/21 at 14:31; Status DC Insulin Human Lispro (HumaLOG) 0-7 UNITS TIDWMEALS SQ ; Start 01/27/21 at 08:00; Stop 01/29/21 at 11:43; Status DC Dextrose (Dextrose 50%-Water Syringe) 12.5 gm PRN Q15MIN PRN IV SEE COMMENTS; Start 01/26/21 at 18:15; Stop 01/29/21 at 11:43; Status DC Dextrose (Iv Dextrose 5%) 250 ml PRN Q15MIN PRN IV SEE COMMENTS; Start 01/26/21 at 18:15; Status UNV Ondansetron HCl (Zofran) 4 mg PRN Q6HRS PRN IVP NAUSEA/VOMITING Last administered on 01/28/21at 04:08; Start 01/26/21 at 18:15 Al Hydroxide/Mg Hydroxide (Mylanta Plus Xs) 30 ml PRN Q3HRS PRN PO HEARTBURN / GAS; Start 01/26/21 at 18:15 Calcium Carbonate/ Glycine (Tums) 500 mg PRN Q3HRS PRN PO UPSET STOMACH; Start 01/26/21 at 18:15 Zolpidem Tartrate (Ambien) 5 mg PRN QHS PRN PO INSOMNIA, MAY REPEAT IN 1HR Last administered on 01/27/21at 23:55; Start 01/26/21 at 18:15 Morphine Sulfate (Morphine Sulfate) 2 mg PRN Q1HR PRN IV MODERATE PAIN Last administered on 01/26/21at 19:27; Start 01/26/21 at 18:15; Stop 01/28/21 at 09:01; Status DC Acetaminophen/ Hydrocodone Bitart (Lortab 5/325) 1 tab PRN Q4HRS PRN PO MILD PAIN 1-3; Start 01/26/21 at 18:15; Stop 01/28/21 at 09:01; Status DC Acetaminophen/ Hydrocodone Bitart (Lortab 5/325) 2 tab PRN Q4HRS PRN PO MODERATE PAIN Last administered on 01/28/21at 04:39; Start 01/26/21 at 18:15; Stop 01/28/21 at 09:01; Status DC Hydromorphone HCl (Dilaudid) 2 mg PRN Q4HRS PRN PO MODERATE PAIN, 2ND CHOICE; Start 01/26/21 at 18:15; Stop 01/28/21 at 09:01; Status DC Hydromorphone HCl (Dilaudid) 4 mg PRN Q4HRS PRN PO SEVERE PAIN; Start 01/26/21 at 18:15; Stop 01/28/21 at 09:01; Status DC Acetaminophen (Tylenol) 650 mg PRN Q6HRS PRN PO Headaches, Temp > 101.5F Last administered on 01/30/21 11:15; Start 01/26/21 at 18:15 Magnesium Hydroxide (Milk Of Magnesia) 2,400 mg PRN Q12HR PRN PO CONSTIPATION (1st Choice) Last administered on 01/27/21 16:39; Start 01/26/21 at 18:15 Bisacodyl (Dulcolax Supp) 10 mg PRN DAILY PRN NC CONSTIPATION; Start 01/26/21 at 18:15 Heparin Sodium (Porcine) (Heparin Sodium) 5,000 unit Q8HRS SQ Last administered on 02/08/21 06:51; Start 01/26/21 at 22:00 Hydromorphone HCl (Dilaudid) 2 mg PRN Q4HRS PRN IVP SEVERE PAIN Last a dministered on 01/27/21 09:37; Start 01/26/21 at 18:15; Stop 01/28/21 at 09:01; Status DC Lorazepam (Ativan Inj) 2 mg PRN Q4HRS PRN IVP ANXIETY / AGITATION Last administered on 02/07/21 11:31; Start 01/26/21 at 18:15 Trazodone HCl (Desyrel) 75 mg HS PO Last administered on 02/07/21 20:39; Start 01/26/21 at 21:30 Clonazepam (KlonoPIN) 1 mg TID PO Last administered on 01/27/21 09:32; Start 01/26/21 at 21:30; Stop 01/27/21 at 13:36; Status DC Cephalexin HCl (Keflex) 500 mg TID PO Last administered on 01/30/21 09:33; Start 01/27/21 at 09:00; Stop 01/30/21 at 13:51; Status DC Lactobacillus Rhamnosus (Culturelle) 1 cap BID PO Last administered on 02/07/21 20:39; Start 01/27/21 at 21:00 Clonazepam (KlonoPIN) 1 mg PRN TID PRN PO anxiety Last administered on at 20:40; Start 01/27/21 at 13:45 Gadoterate Meglumine (Clariscan) 17 ml 1X ONCE IVP Last administered on 01/27/21 14:54; Start 01/27/21 at 13:45; Stop 01/27/21 at 13:49; Status DC Senna/Docusate Sodium (Senna Plus) 1 tab BID PO Last administered on 02/07/21at 20:40; Start 01/27/21 at 21:00 Polyethylene Glycol (miraLAX PACKET) 17 gm DAILY PO Last administered on 02/04/21at 08:00; Start 01/28/21 at 09:00 Bisacodyl (Dulcolax Tab) 10 mg PRN DAILY PRN PO CONSTIPATION (2nd Choice) Last administered on 01/27/21at 16:40; Start 01/27/21 at 16:15 Tamsulosin HCl (Flomax) 0.4 mg QHS PO Last administered on 02/07/21at 20:39; Start 01/27/21 at 21:00 Polyethylene Glycol (miraLAX PACKET) 17 gm DAILY PO ; Start 01/27/21 at 16:15; Status UNV Senna/Docusate Sodium (Senna Plus) 1 tab DAILY PO ; Start 01/27/21 at 16:15; Status UNV Gabapentin (Neurontin) 300 mg QID PO Last administered on 02/07/21at 20:39; Start 01/28/21 at 09:30 Levothyroxine Sodium (Synthroid) 200 mcg DAILY06 PO Last administered on 02/08/21at 06:46; Start 01/28/21 at 09:30 Methadone HCl (Dolophine) 10 mg TID PO Last administered on 02/07/21at 20:40; Start 01/28/21 at 09:00 Daptomycin 450 mg/ Sodium Chloride 50 ml @ 100 mls/hr Q24H IV Last administered on 02/07/21at 13:54; Start 01/28/21 at 12:30 Meropenem 500 mg/ Sodium Chloride 50 ml @ 100 mls/hr Q8HRS IV Last administered on 01/30/21at 06:04; Start 01/28/21 at 14:00; Stop 01/30/21 at 15:56; Status DC Lidocaine HCl (Buffered Lidocaine 1%) 3 ml STK-MED ONCE .ROUTE ; Start 01/28/21 at 14:32; Stop 01/28/21 at 14:33; Status DC Lidocaine HCl (Buffered Lidocaine 1%) 3 ml 1X ONCE INJ Last administered on 01/28/21at 15:22; Start 01/28/21 at 15:15; Stop 01/28/21 at 15:16; Status DC Cyanocobalamin (Vitamin B-12 Inj) 1,000 mcg 1X ONCE IM Last administered on 01/29/21at 09:28; Start 01/29/21 at 07:30; Stop 01/29/21 at 07:31; Status DC Meropenem 500 mg/ Sodium Chloride 50 ml @ 100 mls/hr Q6HRS IV Last administered on 02/08/21at 06:46; Start 01/30/21 at 18:00 Micafungin Sodium 100 mg/Dextrose 100 ml @ 100 mls/hr Q24H IV Last administered on 02/07/21at 16:56; Start 01/30/21 at 17:00 Pantoprazole Sodium (PROTONIX VIAL for IV PUSH) 40 mg DAILYAC IVP Last administered on 02/02/21at 09:25; Start 02/02/21 at 07:30; Stop 02/02/21 at 10:20; Status DC Pantoprazole Sodium (Protonix) 40 mg DAILYAC PO Last administered on 02/07/21at 07:35; Start 02/03/21 at 07:30 Atenolol (Tenormin) 50 mg DAILY PO Last administered on 02/07/21at 07:36; Start 02/04/21 at 15:00 Docusate Sodium (Colace) 100 mg DAILY PO Last administered on 02/06/21at 08:15; Start 02/04/21 at 15:00 Ferrous Sulfate (Feosol) 325 mg BIDWMEALS PO Last administered on 02/07/21at 16:56; Start 02/04/21 at 17:00 Hydrochlorothiazide (Hydrodiuril) 50 mg DAILY PO Last administered on 02/07/21at 07:36; Start 02/04/21 at 15:00 Oxycodone/ Acetaminophen (Percocet 5/325) 1 tab PRN Q6HRS PRN PO PAIN; Start 02/04/21 at 13:15 Nifedipine (Procardia Xl) 30 mg DAILY PO Last administered on 02/07/21at 07:35; Start 02/04/21 at 15:00 Metformin HCl (Glucophage Xr) 500 mg DAILYWBKFT PO Last administered on 02/07/21at 07:35; Start 02/04/21 at 15:00 Active Scripts Active Percocet 5-325 Mg Tablet (Oxycodone/Acetaminophen) 1 Each Tablet 1 Tab PO PRN Q6HRS PRN 5 Days Metformin Hcl Er (Metformin Hcl) 500 Mg Tab.er.24h 500 Mg PO DAILYWBKFT 30 Days Reported Klonopin (Clonazepam) 1 Mg Tablet 1 Tab PO TID Trazodone Hcl 100 Mg Tablet 75 Mg PO HS Keflex (Cephalexin) 750 Mg Capsule 500 Mg PO TID Ferrous Sulfate 325 Mg Tablet 1 Tab PO BID Cyclobenzaprine Hcl 10 Mg Tablet 10 Mg PO HS Nifedipine Er (Nifedipine) 30 Mg Tablet.er 30 Mg PO HS Atenolol 50 Mg Tablet 50 Mg PO DAILY Losartan Potassium 100 Mg Tablet 100 Mg PO DAILY16 Colace (Docusate Sodium) 100 Mg Capsule 100 Mg PO DAILY Gabapentin 600 Mg Tablet 1,800 Mg PO BID Levothyroxine Sodium 200 Mcg Tablet 200 Mcg PO DAILYAC Hydrochlorothiazide Tablet (Hydrochlorothiazide) 25 Mg Tablet 50 Mg PO DAILY Vitals/I & O Vital Sign - Last 24 Hours 02/07/21 02/07/21 02/07/21 02/07/21 11:00 14:44 19:00 20:00 Temp 98.4 98.4 98.0 98.4 98.4 98.0 Pulse 71 64 62 Resp 18 18 18 B/P (MAP) 125/71 (89) 122/67 (85) 106/66 (79) Pulse Ox 96 96 94 O2 Delivery Room Air Room Air Room Air Room Air 02/07/21 02/08/21 02/08/21 22:55 03:00 07:00 Temp 97.8 97.7 98.4 97.8 97.7 98.4 Pulse 73 68 74 Resp 18 18 14 B/P (MAP) 129/77 (94) 131/72 (91) 132/75 (94) Pulse Ox 93 92 92 O2 Delivery Room Air Room Air Room Air Intake and Output 02/07/21 02/07/21 02/08/21 15:00 23:00 07:00 Intake Total 200 ml 200 ml Output Total 250 ml 790 ml Balance -50 ml -590 ml Justifications for Admission Other Justification Lumbar spinal stenosis concerning for cauda equina syndrome RENETTA HOWARD MD Feb 08, 2021 09:28
[2021-02-08] MEDS: METHADONE 10 MG TABLET. PO SCH ×2 (09:34→14:15)
[2021-02-08] MEDS: LACTOBACILLUS RHAMNOSUS GG 1 CAPSULE. PO SCH (09:34)
[2021-02-08] MEDS: clonazePAM 0.5 MG TABLET PO PRN (09:34)
[2021-02-08] MEDS: hydroCHLOROthiazide 25 MG TABLET PO SCH (09:34)
[2021-02-08] MEDS: GABAPENTIN 300 MG CAPSULE. PO SCH ×3 (09:34→16:19)
[2021-02-08] MEDS: metFORMIN XR 500 MG TAB.ER.24H PO SCH (09:35)
[2021-02-08] MEDS: FERROUS SULFATE 325 MG TABLET. PO SCH ×2 (09:35→16:19)
[2021-02-08] MEDS: PANTOPRAZOLE 40 MG TABLET.DR. PO SCH (09:35)
[2021-02-08] MEDS: ATENOLOL 50 MG TABLET. PO SCH (09:35)
[2021-02-08 09:54] LABS: BASO % 1 % (0-3); EOS # 0.3 x10^3/uL (0.0-0.7); EOS % 6 % (0-3); HEMATOCRIT 28.6 % (39.0-53.0); HEMOGLOBIN 9.4 g/dL (13.0-17.5); LYMPH # 1.2 x10^3/uL (1.0-4.8); LYMPH % 24 % (24-48); MEAN CORPUSCULAR HEMOGLOBIN 31 pg (25-35); MEAN CORPUSCULAR HGB CONC 33 g/dL (31-37); MEAN CORPUSCULAR VOLUME 94 fL (79-100); MONO # 0.3 x10^3/uL (0.0-1.1); MONO % 7 % (0-9); NEUT # 3.1 x10^3/uL (1.8-7.7); NEUT % 63 % (31-73); PLATELET COUNT 301 x10^3/uL (140-400); RED BLOOD COUNT 3.06 x10^6/uL (4.30-5.70); RED CELL DISTRIBUTION WIDTH 14.5 % (11.5-14.5); WHITE BLOOD COUNT 4.9 x10^3/uL (4.0-11.0)
--- NOTE | 2021-02-08 09:55 | PDOC ---
Date of Service: DATE: 02/08/21 TIME: 09:54 Subjective: Subjective: Feels fine except his is having brain surgery today so he's worried about her. Objective: Vital Signs: Vital Signs Date Time Temp Pulse Resp B/P (MAP) Pulse Ox O2 Delivery O2 Flow Rate FiO2 02/08/21 09:35 74 132/75 02/08/21 07:00 98.4 14 92 Room Air 98.4 PE: GEN: NAD - in bed holding urinal LUNGS: room air ABD: non-distended NEURO/PSYCH: A & O, flat A/P: Back pain, ?spinal infection Anemia, Hemoccult negative COVID negative -- DC per primary. Justicifation of Admission Dx: Justifications for Admission: Justification of Admission Dx: Yes LULA PACE Feb 08, 2021 09:55
[2021-02-08 10:17] LABS: ALBUMIN 3.5 g/dL (3.4-5.0); ALBUMIN/GLOBULIN RATIO 0.9 (1.0-1.7); CALCIUM 9.5 mg/dL (8.5-10.1); CREATININE 0.7 mg/dL (0.7-1.3); GFR 115.4; TOTAL BILIRUBIN 0.4 mg/dL (0.2-1.0); TOTAL PROTEIN 7.4 g/dL (6.4-8.2)
[2021-02-08 11:00] VITALS: BP 136/79
[2021-02-08] MEDS: DAPTOmycin (GENERIC) IVPB 450 MG in IV NORMAL SALINE 50ML 50 ML IV SCH (14:15)
--- NOTE | 2021-02-08 14:50 | RAD ---
XR KNEE 3 VIEWS_RT Clinical indications: Reason: PAIN, FALL IN ROOM Findings: Total right knee arthroplasty is evident which is well aligned. No acute fracture or osteol ytic process is evident. Multiple radiopaque loose bodies are apparent. IMPRESSION: No acute osseous abnormality is evident. Electronically signed by: Josh Mcginnis MD (02/08/2021 2:48 PM) [id number]
--- NOTE | 2021-02-08 14:59 | RAD ---
Five-view lumbar spine series Clinical indications: Fall and back pain. COMPARISON: CT study lumbar spine dated January 26, 2021. FINDINGS: No compression fracture is seen. Transverse processes are intact. Again seen is grade 1 an terolisthesis of L5-S1 which is unchanged. L5-S1 disc space and facet joints are fused based on the C T study. Again seen is subchondral sclerosis and erosions of the endplates around the L3-4 with retro listhesis. This is unchanged and is consistent with discitis. Again seen is retrolisthesis L2-3 with partial fusion of the disc space. Prominent bridging osteophytes are seen anteriorly at L2-3 and L3-4 . IMPRESSION: Stable study since CT study of the lumbar spine dated January 26, 2021. No acute compression fracture is apparent. Stable discitis at L3-4. Electronically signed by: Josh Mcginnis MD (02/08/2021 2:57 PM) [id number]
[2021-02-08 15:00] VITALS: BP 131/76
--- NOTE | 2021-02-08 15:09 | PDOC3 ---
Discharge Summary Date of Admission: Jan 26, 2021 Date of Discharge: Feb 08, 2021 Follow-Up: 1-2 days Admitting Diagnosis comment: HPI Mr Byrnes is a 61-year-old male PMHx hypothyroidism, chronic pain, hernia, back surgery, right total knee replacement, and history of femur fracture and October 2020 osteomyelitis s/p cervical, thoracic, and lumbar epidural abscess drainage who presents to the ED with complaints of urinary retention. Patient states he has not urinated in the past 2 days prior to admit with associated bladder distention. He was recently admitted on 11/02/2020 for spinal epidural abscess, paraspinal cervical abscess, and osteomyelitis. He states he is currently on an antibiotic 3 times daily, but cannot member the name of this antibiotic. CT lumbar spine obtained in the ED showed redemonstrated changes of discitis osteomyelitis at L3-L4 with at least moderate spinal canal stenosis at that level L2-L5. Coello catheter was placed in the ED with reportedly 1000 mL urine output. Patient states he feels significantly better after having Coello placed, but is also reports chronic right knee pain. He has had right knee pain over this past 3 years since total knee replacement, but states his pain is worsened over the past 3 days causing him difficulty moving. States his knee is slightly more mobile after pain medication he received in the ED. Neurosurgery was consulted in the ED and requesting admission. Admitted patient for further medical management. PROCEDURES CERVICAL SPINE AND LUMBAR SPINE MRI d/c condition good prognosis guarded consults neurosurgery, ID, DR HOWARD , GI D/C MEDS SEE OCT discharge dx Chief Complaint impression L2-L5 spinal canal stenosis with urinary retention - retention more likely medication side effect. Cervical spine stenosis History osteomyelitis DM2 - sliding scale Normocytic anemia - s/p transfusion DENIES HX Colonoscopy but is poor historian Thrombocytopenia - hematology following Hypothyroidism Chronic pain Right total knee replacement History of femur fracture October 2020 osteomyelitis T11-12 - MRI changes in cervical and thoracic spine likely needs IV treatment Complete to near complete resolution of previously demonstrated epidural enhancement consistent with abscess throughout the and majority of the thoracic levels, consistent with interval treatment response. There is a new small enhancing ventral epidural collection measuring 2 mm in thickness at T1-T2 which is likely infectious given extensive adjacent marrow edema involving the posterior elements and surrounding soft tissues at C7-T1. There are new small peripherally enhancing fluid collections posterior to the facet joints at this level and within the left dorsal central canal which may be due to superinfected synovial cysts or abscesses. dilation of a segment of colon measuring up to 6.5 cm. / uncertain clinical significance, obstruction or focal ileus could have this appearance. Plan: Will resume his current antibiotic treatment Hemoglobin & hematocrit 8.8 and 25.6 respectively (11/16/2020); hemoglobin 7.1 and hematocrit 22.9 on admission. Will continue to monitor and transfuse as needed. Resume home medications FEN - Cardiac diet PPX - Heparin FULL CODE Dispo - inpatient for above HEME consult Continue dapto and meropenem , Cont Micafungin GI consult guiac stools CEA 37 min pt exam, chart review, > 50% of time spent with exam, chart review, pt care coordination Advance Care Planning: Total time spent [id number] with patient 16 minutes in discussion with goals of care, comfort care, end-of-life care, pain management, code status; patient names his (Radha Padilla) as surrogate decision-maker. History of Present Illness History of Present Illness impression Mr Byrnes is a 61-year-old male PMHx hypothyroidism, chronic pain, hernia, back surgery, right total knee replacement, and history of femur fracture and October 2020 osteomyelitis s/p cervical, thoracic, and lumbar epidural abscess drainage who presents to the ED with complaints of urinary retention. Patient states he has not urinated in the past 2 days prior to admit with associated bladder distention. He was recently admitted on 11/02/2020 for spinal epidural abscess, paraspinal cervical abscess, and osteomyelitis. He states he is currently on an antibiotic 3 times daily, but cannot member the name of this antibiotic. CT lumbar spine obtained in the ED showed redemonstrated changes of discitis osteo myelitis at L3-L4 with at least moderate spinal canal stenosis at that level L2- L5. Coello catheter was placed in the ED with reportedly 1000 mL urine output. Patient states he feels significantly better after having Coello placed, but is also reports chronic right knee pain. He has had right knee pain over this past 3 years since total knee replacement, but states his pain is worsened over the past 3 days causing him difficulty moving. States his knee is slightly more mobile after pain medication he received in the ED. Neurosurgery was consulted in the ED and requesting admission. Admitted patient for further medical management. 01/27: Afebrile. Discussed with neurosurgery and ID his recent MRI is actually improved. He discloses to me that prior to his complicated hospital stay he had actually been weaned down from 150 mg daily of methadone for chronic pain to 10 mg 3 times daily and has had trouble having anyone to prescribe methadone for him. He continues to ask for pain medication regularly. Discussed complications of urinary retention related to chronic opioid therapy. 01/28: Afebrile. Platelets still low normal still low. Coello out today start on methadone per PMR. MRI reviewed with ID and neurosurgery, given MRI findings and thoracic and cervical areas changed likely persistent infection. Voiding trial today. PICC inserted 01/29: Afebrile overnight. Hemoglobin dropped below 7. Pain better controlled on methadone. No residual on PVR. 1u PRBC with good effect 01/30: Afebrile. Hb dropped to 6.8 again. 11 unit of blood transfusing. He actually feels better on the methadone is a little bit stronger. No more urinary retention. Afebrile. Hb 7.9 posttransfusion. Platelets up to 108. Feeling improved. 6-14 L2-L5 spinal canal stenosis with urinary retention - retention more likely medication side effect. Cervical spine stenosis History osteomyelitis DM2 - sliding scale Normocytic anemia - s/p transfusion Thrombocytopenia - hematology following Hypothyroidism FEN - Cardiac diet PPX - Heparin FULL CODE Dispo - inpatient for above HEME consult Continue dapto and meropenem , Cont Micafungin 37 min pt exam, chart review, > 50% of time spent with exam, chart review, pt care coordination 6-16 L2-L5 spinal canal stenosis with urinary retention - retention more likely medication side effect. Cervical spine stenosis History osteomyelitis DM2 - sliding scale Normocytic anemia - s/p transfusion Thrombocytopenia - hematology following Hypothyroidism FEN - Cardiac diet PPX - Heparin FULL CODE Dispo - inpatient for above HEME consult Continue dapto and meropenem , Cont Micafungin d/w rn * 2 weeks Discharge Recommendations * [facility] * * * 6-17 L2-L5 spinal canal stenosis with urinary retention - retention more likely medication side effect. Cervical spine stenosis History osteomyelitis DM2 - sliding scale Normocytic anemia - s/p transfusion Thrombocytopenia - hematology following Hypothyroidism FEN - Cardiac diet PPX - Heparin FULL CODE Dispo - inpatient for above HEME consult Continue dapto and meropenem , Cont Micafungin d/w rn * 2 weeks Discharge Recommendations * [facility] * * Meropenem versus Zosyn 13.5 g daily continuous infusion versus IV Invanz 1 g daily If Dapto is not an option, next choice would be IV dalbavancin 1500 mg q. weekly for 6 weeks Cont Micafungin while here 6-18 L2-L5 spinal canal stenosis with urinary retention - retention more likely medication side effect. Cervical spine stenosis History osteomyelitis DM2 - sliding scale Normocytic anemia - s/p transfusion Thrombocytopenia - hematology following Hypothyroidism FEN - Cardiac diet PPX - Heparin FULL CODE Dispo - inpatient for above HEME consult Continue dapto and meropenem , Cont Micafungin d/w rn Other options are Meropenem versus Zosyn 13.5 g daily continuous infusion versus IV Invanz 1 g daily If Dapto is not an option, next choice would be IV dalbavancin 1500 mg q. weekly Total duration will be at least 6 weeks * 2 weeks Discharge Recommendations * [facility] Meropenem versus Zosyn 13.5 g daily continuous infusion versus IV Invanz 1 g daily If Dapto is not an option, next choice would be IV dalbavancin 1500 mg q. weekly for 6 weeks Cont Micafungin while here 6-19 L2-L5 spinal canal stenosis with urinary retention - retention more likely medication side effect. Cervical spine stenosis History osteomyelitis DM2 - sliding scale Normocytic anemia - s/p transfusion Thrombocytopenia - hematology following Hypothyroidism FEN - Cardiac diet PPX - Heparin FULL CODE Dispo - inpatient for above HEME consult Continue dapto and meropenem , Cont Micafungin d/w rn Other options are Meropenem versus Zosyn 13.5 g daily continuous infusion versus IV Invanz 1 g daily If Dapto is not an option, next choice would be IV dalbavancin 1500 mg q. weekly Total duration will be at least 6 weeks * 2 weeks Discharge Recommendations * [facility] Meropenem versus Zosyn 13.5 g daily continuous infusion versus IV Invanz 1 g daily If Dapto is not an option, next choice would be IV dalbavancin 1500 mg q. weekly for 6 weeks Cont Micafungin while here patient request to stay until monday due to his having neurosurgery here Monday, i discussed this with [facility] sheet metal supervisor on 2 nd floor at 11 AM 02-06 L2-L5 spinal canal stenosis with urinary retention - retention more likely medication side effect. Cervical spine stenosis History osteomyelitis DM2 - sliding scale Normocytic anemia - s/p transfusion Thrombocytopenia - hematology following Hypothyroidism FEN - Cardiac diet PPX - Heparin FULL CODE Dispo - inpatient for above HEME consult Continue dapto and meropenem , Cont Micafungin d/w rn Other options are Meropenem versus Zosyn 13.5 g daily continuous infusion versus IV Invanz 1 g daily If Dapto is not an option, next choice would be IV dalbavancin 1500 mg q. weekly Total duration will be at least 6 weeks * 2 weeks Discharge Recommendations * [facility] Meropenem versus Zosyn 13.5 g daily continuous infusion versus IV Invanz 1 g daily If Dapto is not an option, next choice would be IV dalbavancin 1500 mg q. weekly for 6 weeks Cont Micafungin while here patient request to stay until monday due to his having neurosurgery here Monday, i discussed this with [facility] [facility] sheet metal supervisor on 2 nd floor at 11 AM 02-06 fell yesterday walking out of bathroom hitting floor c/o low back pain AND RIGHT KNEE PAIN L/S STAT PENDING X RAY L2-L5 spinal canal stenosis with urinary retention - retention more likely medication side effect. Cervical spine stenosis History osteomyelitis DM2 - sliding scale Normocytic anemia - s/p transfusion Thrombocytopenia - hematology following Hypothyroidism FEN - Cardiac diet PPX - Heparin FULL CODE Dispo - inpatient for above HEME consult Continue dapto and meropenem , Cont Micafungin d/w rn Other options are Meropenem versus Zosyn 13.5 g daily continuous infusion versus IV Invanz 1 g daily If Dapto is not an option, next choice would be IV dalbavancin 1500 mg q. weekly Total duration will be at least 6 weeks * 2 weeks Discharge Recommendations * [facility] Meropenem versus Zosyn 13.5 g daily continuous infusion versus IV Invanz 1 g daily If Dapto is not an option, next choice would be IV dalbavancin 1500 mg q. weekly for 6 weeks Cont Micafungin while here patient request to stay until monday due to his having neurosurgery here Monday, i discussed this with [facility] sheet metal supervisor on 2 nd floor at 11 AM 6-19 Vitals Vitals Vital Signs Date Time Temp Pulse Resp B/P (MAP) Pulse Ox O2 Delivery O2 Flow Rate FiO2 02/08/21 07:00 98.4 74 14 132/75 (94) 92 Room Air 98.4 Physical Exam Physical Exam GENERAL: alert awake, sitting in bed appears comfortable HEENT: Normal conjunctivae. Oral cavity clear NECK: Supple. No JVP, no lymphadenopathy. LUNGS: Clear. HEART: S1, S2 regular. ABDOMEN: Soft, nontender. EXTREMITIES: No edema or cyanosis. Right knee wo redness/warmth/swelling. SKIN: No signs of gen rash. Groin yeast some better,dry flaky skin no Coello NEUROLOGIC: Alert, awake, and appropriate. MSK scar over cervical spine, lumbar spine healed some paraspinal pain in the low back, no dec in range of motion at neck RUE-PICC (01/28) clean General: Alert, Oriented X3, Cooperative, No acute distress Heart: Regular rate, Normal S1, Normal S2 Lungs: Clear Abdomen: Normal bowel sounds, Soft, No tenderness Extremities: No clubbing, No cyanosis Skin: No significant lesion Assessment and Plan Assessmemt and Plan Problems Medical Problems: (1) Urinary retention Status: Acute Comment Review of Relevant I have reviewed the following items almas (where applicable) has been applied. Labs Microbiology 01/26/21 Urine Culture - Final, Complete Medications Current Medications Iohexol (Omnipaque 300 Mg/ml) 75 ml 1X ONCE IV Last administered on 01/26/21at 14:54; Start 01/26/21 at 14:30; Stop 01/26/21 at 14:31; Status DC Info (CONTRAST GIVEN -- Rx MONITORING) 1 each PRN DAILY PRN MC SEE COMMENTS; Start 01/26/21 at 14:30; Stop 01/28/21 at 14:29; Status DC Fentanyl Citrate (Fentanyl 2ml Vial) 50 mcg 1X ONCE IV Last administered on 01/26/21at 14:59; Start 01/26/21 at 14:30; Stop 01/26/21 at 14:31; Status DC Ondansetron HCl (Zofran) 4 mg 1X ONCE IV Last administered on 01/26/21at 14:59; Start 01/26/21 at 14:30; Stop 01/26/21 at 14:31; Status DC Insulin Human Lispro (HumaLOG) 0-7 UNITS TIDWMEALS SQ ; Start 01/27/21 at 08:00; Stop 01/29/21 at 11:43; Status DC Dextrose (Dextrose 50%-Water Syringe) 12.5 gm PRN Q15MIN PRN IV SEE COMMENTS; Start 01/26/21 at 18:15; Stop 01/29/21 at 11:43; Status DC Dextrose (Iv Dextrose 5%) 250 ml PRN Q15MIN PRN IV SEE COMMENTS; Start 01/26/21 at 18:15; Status UNV Ondansetron HCl (Zofran) 4 mg PRN Q6HRS PRN IVP NAUSEA/VOMITING Last administered on 01/28/21at 04:08; Start 01/26/21 at 18:15 Al Hydroxide/Mg Hydroxide (Mylanta Plus Xs) 30 ml PRN Q3HRS PRN PO HEARTBURN / GAS; Start 01/26/21 at 18:15 Calcium Carbonate/ Glycine (Tums) 500 mg PRN Q3HRS PRN PO UPSET STOMACH; Start 01/26/21 at 18:15 Zolpidem Tartrate (Ambien) 5 mg PRN QHS PRN PO INSOMNIA, MAY REPEAT IN 1HR Last administered on 01/27/21at 23:55; Start 01/26/21 at 18:15 Morphine Sulfate (Morphine Sulfate) 2 mg PRN Q1HR PRN IV MODERATE PAIN Last administered on 01/26/21at 19:27; Start 01/26/21 at 18:15; Stop 01/28/21 at 09:01; Status DC Acetaminophen/ Hydrocodone Bitart (Lortab 5/325) 1 tab PRN Q4HRS PRN PO MILD PAIN 1-3; Start 01/26/21 at 18:15; Stop 01/28/21 at 09:01; Status DC Acetaminophen/ Hydrocodone Bitart (Lortab 5/325) 2 tab PRN Q4HRS PRN PO MODERATE PAIN Last administered on 01/28/21at 04:39; Start 01/26/21 at 18:15; Stop 01/28/21 at 09:01; Status DC Hydromorphone HCl (Dilaudid) 2 mg PRN Q4HRS PRN PO MODERATE PAIN, 2ND CHOICE; Start 01/26/21 at 18:15; Stop 01/28/21 at 09:01; Status DC Hydromorphone HCl (Dilaudid) 4 mg PRN Q4HRS PRN PO SEVERE PAIN; Start 01/26/21 at 18:15; Stop 01/28/21 at 09:01; Status DC Acetaminophen (Tylenol) 650 mg PRN Q6HRS PRN PO Headaches, Temp > 101.5F Last administered on 01/30/21at 11:15; Start 01/26/21 at 18:15 Magnesium Hydroxide (Milk Of Magnesia) 2,400 mg PRN Q12HR PRN PO CONSTIPATION (1st Choice) Last administered on 01/27/21at 16:39; Start 01/26/21 at 18:15 Bisacodyl (Dulcolax Supp) 10 mg PRN DAILY PRN IA CONSTIPATION; Start 01/26/21 at 18:15 Heparin Sodium (Porcine) (Heparin Sodium) 5,000 unit Q8HRS SQ Last administered on 02/08/21at 06:51; Start 01/26/21 at 22:00 Hydromorphone HCl (Dilaudid) 2 mg PRN Q4HRS PRN IVP SEVERE PAIN Last administered on 01/27/21at 09:37; Start 01/26/21 at 18:15; Stop 01/28/21 at 09:01; Status DC Lorazepam (Ativan Inj) 2 mg PRN Q4HRS PRN IVP ANXIETY / AGITATION Last administered on 02/07/21at 11:31; Start 01/26/21 at 18:15 Trazodone HCl (Desyrel) 75 mg HS PO Last administered on 02/07/21at 20:39; Start 01/26/21 at 21:30 Clonazepam (KlonoPIN) 1 mg TID PO Last administered on 01/27/21 09:32; Start 01/26/21 at 21:30; Stop 01/27/21 at 13:36; Status DC Cephalexin HCl (Keflex) 500 mg TID PO Last administered on 01/30/21 09:33; Start 01/27/21 at 09:00; Stop 01/30/21 at 13:51; Status DC Lactobacillus Rhamnosus (Culturelle) 1 cap BID PO Last administered on 02/07/21at 20:39; Start 01/27/21 at 21:00 Clonazepam (KlonoPIN) 1 mg PRN TID PRN PO anxiety Last administered on 02/07/21at 20:40; Start 01/27/21 at 13:45 Gadoterate Meglumine (Clariscan) 17 ml 1X ONCE IVP Last administered on 01/27/21at 14:54; Start 01/27/21 at 13:45; Stop 01/27/21 at 13:49; Status DC Senna/Docusate Sodium (Senna Plus) 1 tab BID PO Last administered on 02/07/21at 20:40; Start 01/27/21 at 21:00 Polyethylene Glycol (miraLAX PACKET) 17 gm DAILY PO Last administered on 02/04/21at 08:00; Start 01/28/21 at 09:00 Bisacodyl (Dulcolax Tab) 10 mg PRN DAILY PRN PO CONSTIPATION (2nd Choice) Last administered on 01/27/21 16:40; Start 01/27/21 at 16:15 Tamsulosin HCl (Flomax) 0.4 mg QHS PO Last administered on 02/07/21at 20:39; Start 01/27/21 at 21:00 Polyethylene Glycol (miraLAX PACKET) 17 gm DAILY PO ; Start 01/27/21 at 16:15; Status UNV Senna/Docusate Sodium (Senna Plus) 1 tab DAILY PO ; Start 01/27/21 at 16:15; Status UNV Gabapentin (Neurontin) 300 mg QID PO Last administered on 02/07/21at 20:39; Start 01/28/21 at 09:30 Levothyroxine Sodium (Synthroid) 200 mcg DAILY06 PO Last administered on 02/08/21at 06:46; Start 01/28/21 at 09:30 Methadone HCl (Dolophine) 10 mg TID PO Last administered on 02/07/21at 20:40; Start 01/28/21 at 09:00 Daptomycin 450 mg/ Sodium Chloride 50 ml @ 100 mls/hr Q24H IV Last administered on 02/07/21at 13:54; Start 01/28/21 at 12:30 Meropenem 500 mg/ Sodium Chloride 50 ml @ 100 mls/hr Q8HRS IV Last administered on 01/30/21at 06:04; Start 01/28/21 at 14:00; Stop 01/30/21 at 15:56; Status DC Lidocaine HCl (Buffered Lidocaine 1%) 3 ml STK-MED ONCE .ROUTE ; Start 01/28/21 at 14:32; Stop 01/28/21 at 14:33; Status DC Lidocaine HCl (Buffered Lidocaine 1%) 3 ml 1X ONCE INJ Last administered on 01/28/21at 15:22; Start 01/28/21 at 15:15; Stop 01/28/21 at 15:16; Status DC Cyanocobalamin (Vitamin B-12 Inj) 1,000 mcg 1X ONCE IM Last administered on 01/29/21at 09:28; Start 01/29/21 at 07:30; Stop 01/29/21 at 07:31; Status DC Meropenem 500 mg/ Sodium Chloride 50 ml @ 100 mls/hr Q6HRS IV Last administered on 02/08/21at 06:46; Start 01/30/21 at 18:00 Micafungin Sodium 100 mg/Dextrose 100 ml @ 100 mls/hr Q24H IV Last administered on 02/07/21at 16:56; Start 01/30/21 at 17:00 Pantoprazole Sodium (PROTONIX VIAL for IV PUSH) 40 mg DAILYAC IVP Last administered on 02/02/21at 09:25; Start 02/02/21 at 07:30; Stop 02/02/21 at 10:20; Status DC Pantoprazole Sodium (Protonix) 40 mg DAILYAC PO Last administered on 02/07/21at 07:35; Start 02/03/21 at 07:30 Atenolol (Tenormin) 50 mg DAILY PO Last administered on 02/07/21at 07:36; Start 02/04/21 at 15:00 Docusate Sodium (Colace) 100 mg DAILY PO Last administered on 02/06/21at 08:15; Start 02/04/21 at 15:00 Ferrous Sulfate (Feosol) 325 mg BIDWMEALS PO Last administered on 02/07/21at 16:56; Start 02/04/21 at 17:00 Hydrochlorothiazide (Hydrodiuril) 50 mg DAILY PO Last administered on 02/07/21at 07:36; Start 02/04/21 at 15:00 Oxycodone/ Acetaminophen (Percocet 5/325) 1 tab PRN Q6HRS PRN PO PAIN; Start 02/04/21 at 13:15 Nifedipine (Procardia Xl) 30 mg DAILY PO Last administered on 02/07/21at 07:35; Start 02/04/21 at 15:00 Metformin HCl (Glucophage Xr) 500 mg DAILYWBKFT PO Last administered on 02/07/21at 07:35; Start 02/04/21 at 15:00 Active Scripts Active Percocet 5-325 Mg Tablet (Oxycodone/Acetaminophen) 1 Each Tablet 1 Tab PO PRN Q6HRS PRN 5 Days Metformin Hcl Er (Metformin Hcl) 500 Mg Tab.er.24h 500 Mg PO DAILYWBKFT 30 Days Reported Klonopin (Clonazepam) 1 Mg Tablet 1 Tab PO TID Trazodone Hcl 100 Mg Tablet 75 Mg PO HS Keflex (Cephalexin) 750 Mg Capsule 500 Mg PO TID Ferrous Sulfate 325 Mg Tablet 1 Tab PO BID Cyclobenzaprine Hcl 10 Mg Tablet 10 Mg PO HS Nifedipine Er (Nifedipine) 30 Mg Tablet.er 30 Mg PO HS Atenolol 50 Mg Tablet 50 Mg PO DAILY Losartan Potassium 100 Mg Tablet 100 Mg PO DAILY16 Colace (Docusate Sodium) 100 Mg Capsule 100 Mg PO DAILY Gabapentin 600 Mg Tablet 1,800 Mg PO BID Levothyroxine Sodium 200 Mcg Tablet 200 Mcg PO DAILYAC Hydrochlorothiazide Tablet (Hydrochlorothiazide) 25 Mg Tablet 50 Mg PO DAILY Vitals/I & O FINAL DIAGNOSIS Problems Medical Problems: (1) Urinary retention Status: Acute Brief Hospital Course Mr. Byrnes is a 61 old [sex] who presented with [ OSTEOMYELITIS, DISCITIS] CONDITION AT DISCHARGE: Improved Discharge Medications Current Medications Iohexol (Omnipaque 300 Mg/ml) 75 ml 1X ONCE IV Last administered on 01/26/21at 14:54; Start 01/26/21 at 14:30; Stop 01/26/21 at 14:31; Status DC Info (CONTRAST GIVEN -- Rx MONITORING) 1 each PRN DAILY PRN MC SEE COMMENTS; Start 01/26/21 at 14:30; Stop 01/28/21 at 14:29; Status DC Fentanyl Citrate (Fentanyl 2ml Vial) 50 mcg 1X ONCE IV Last administered on 01/26/21at 14:59; Start 01/26/21 at 14:30; Stop 01/26/21 at 14:31; Status DC Ondansetron HCl (Zofran) 4 mg 1X ONCE IV Last administered on 01/26/21at 14:59; Start 01/26/21 at 14:30; Stop 01/26/21 at 14:31; Status DC Insulin Human Lispro (HumaLOG) 0-7 UNITS TIDWMEALS SQ ; Start 01/27/21 at 08:00; Stop 01/29/21 at 11:43; Status DC Dextrose (Dextrose 50%-Water Syringe) 12.5 gm PRN Q15MIN PRN IV SEE COMMENTS; Start 01/26/21 at 18:15; Stop 01/29/21 at 11:43; Status DC Dextrose (Iv Dextrose 5%) 250 ml PRN Q15MIN PRN IV SEE COMMENTS; Start 01/26/21 at 18:15; Status UNV Ondansetron HCl (Zofran) 4 mg PRN Q6HRS PRN IVP NAUSEA/VOMITING Last administered on 01/28/21at 04:08; Start 01/26/21 at 18:15 Al Hydroxide/Mg Hydroxide (Mylanta Plus Xs) 30 ml PRN Q3HRS PRN PO HEARTBURN / GAS; Start 01/26/21 at 18:15 Calcium Carbonate/ Glycine (Tums) 500 mg PRN Q3HRS PRN PO UPSET STOMACH; Start 01/26/21 at 18:15 Zolpidem Tartrate (Ambien) 5 mg PRN QHS PRN PO INSOMNIA, MAY REPEAT IN 1HR Last administered on 01/27/21at 23:55; Start 01/26/21 at 18:15 Morphine Sulfate (Morphine Sulfate) 2 mg PRN Q1HR PRN IV MODERATE PAIN Last administered on 01/26/21at 19:27; Start 01/26/21 at 18:15; Stop 01/28/21 at 09:01; Status DC Acetaminophen/ Hydrocodone Bitart (Lortab 5/325) 1 tab PRN Q4HRS PRN PO MILD PAIN 1-3; Start 01/26/21 at 18:15; Stop 01/28/21 at 09:01; Status DC Acetaminophen/ Hydrocodone Bitart (Lortab 5/325) 2 tab PRN Q4HRS PRN PO MODERATE PAIN Last administered on 01/28/21at 04:39; Start 01/26/21 at 18:15; Stop 01/28/21 at 09:01; Status DC Hydromorphone HCl (Dilaudid) 2 mg PRN Q4HRS PRN PO MODERATE PAIN, 2ND CHOICE; Start 01/26/21 at 18:15; Stop 01/28/21 at 09:01; Status DC Hydromorphone HCl (Dilaudid) 4 mg PRN Q4HRS PRN PO SEVERE PAIN; Start 01/26/21 at 18:15; Stop 01/28/21 at 09:01; Status DC Acetaminophen (Tylenol) 650 mg PRN Q6HRS PRN PO Headaches, Temp > 101.5F Last administered on 01/30/21at 11:15; Start 01/26/21 at 18:15 Magnesium Hydroxide (Milk Of Magnesia) 2,400 mg PRN Q12HR PRN PO CONSTIPATION (1st Choice) Last administered on 01/27/21at 16:39; Start 01/26/21 at 18:15 Bisacodyl (Dulcolax Supp) 10 mg PRN DAILY PRN IA CONSTIPATION; Start 01/26/21 at 18:15 Heparin Sodium (Porcine) (Heparin Sodium) 5,000 unit Q8HRS SQ Last administered on 02/08/21at 14:23; Start 01/26/21 at 22:00 Hydromorphone HCl (Dilaudid) 2 mg PRN Q4HRS PRN IVP SEVERE PAIN Last administered on 01/27/21at 09:37; Start 01/26/21 at 18:15; Stop 01/28/21 at 09:01; Status DC Lorazepam (Ativan Inj) 2 mg PRN Q4HRS PRN IVP ANXIETY / AGITATION Last administered on 02/07/21at 11:31; Start 01/26/21 at 18:15 Trazodone HCl (Desyrel) 75 mg HS PO Last administered on 02/07/21at 20:39; Start 01/26/21 at 21:30 Clonazepam (KlonoPIN) 1 mg TID PO Last administered on 01/27/21 09:32; Start 01/26/21 at 21:30; Stop 01/27/21 at 13:36; Status DC Cephalexin HCl (Keflex) 500 mg TID PO Last administered on 01/30/21 09:33; Start 01/27/21 at 09:00; Stop 01/30/21 at 13:51; Status DC Lactobacillus Rhamnosus (Culturelle) 1 cap BID PO Last administered on 02/08/21 09:34; Start 01/27/21 at 21:00 Clonazepam (KlonoPIN) 1 mg PRN TID PRN PO anxiety Last administered on 02/08/21 09:34; Start 01/27/21 at 13:45 Gadoterate Meglumine (Clariscan) 17 ml 1X ONCE IVP Last administered on 01/27/21at 14:54; Start 01/27/21 at 13:45; Stop 01/27/21 at 13:49; Status DC Senna/Docusate Sodium (Senna Plus) 1 tab BID PO Last administered on 02/07/21at 20:40; Start 01/27/21 at 21:00 Polyethylene Glycol (miraLAX PACKET) 17 gm DAILY PO Last administered on 02/04/21at 08:00; Start 01/28/21 at 09:00 Bisacodyl (Dulcolax Tab) 10 mg PRN DAILY PRN PO CONSTIPATION (2nd Choice) Last administered on 01/27/21at 16:40; Start 01/27/21 at 16:15 Tamsulosin HCl (Flomax) 0.4 mg QHS PO Last administered on 02/07/21at 20:39; Start 01/27/21 at 21:00 Polyethylene Glycol (miraLAX PACKET) 17 gm DAILY PO ; Start 01/27/21 at 16:15; Status UNV Senna/Docusate Sodium (Senna Plus) 1 tab DAILY PO ; Start 01/27/21 at 16:15; Status UNV Gabapentin (Neurontin) 300 mg QID PO Last administered on 02/08/21at 12:27; Start 01/28/21 at 09:30 Levothyroxine Sodium (Synthroid) 200 mcg DAILY06 PO Last administered on 02/08/21at 06:46; Start 01/28/21 at 09:30 Methadone HCl (Dolophine) 10 mg TID PO Last administered on 02/08/21at 14:15; Start 01/28/21 at 09:00 Daptomycin 450 mg/ Sodium Chloride 50 ml @ 100 mls/hr Q24H IV Last administered on 02/08/21at 14:15; Start 01/28/21 at 12:30 Meropenem 500 mg/ Sodium Chloride 50 ml @ 100 mls/hr Q8HRS IV Last administered on 01/30/21at 06:04; Start 01/28/21 at 14:00; Stop 01/30/21 at 15:56; Status DC Lidocaine HCl (Buffered Lidocaine 1%) 3 ml STK-MED ONCE .ROUTE ; Start 01/28/21 at 14:32; Stop 01/28/21 at 14:33; Status DC Lidocaine HCl (Buffered Lidocaine 1%) 3 ml 1X ONCE INJ Last administered on 01/28/21at 15:22; Start 01/28/21 at 15:15; Stop 01/28/21 at 15:16; Status DC Cyanocobalamin (Vitamin B-12 Inj) 1,000 mcg 1X ONCE IM Last administered on 01/29/21at 09:28; Start 01/29/21 at 07:30; Stop 01/29/21 at 07:31; Status DC Meropenem 500 mg/ Sodium Chloride 50 ml @ 100 mls/hr Q6HRS IV Last administered on 02/08/21at 12:28; Start 01/30/21 at 18:00 Micafungin Sodium 100 mg/Dextrose 100 ml @ 100 mls/hr Q24H IV Last administered on 02/07/21at 16:56; Start 01/30/21 at 17:00 Pantoprazole Sodium (PROTONIX VIAL for IV PUSH) 40 mg DAILYAC IVP Last administered on 02/02/21at 09:25; Start 02/02/21 at 07:30; Stop 02/02/21 at 10:20; Status DC Pantoprazole Sodium (Protonix) 40 mg DAILYAC PO Last administered on 02/08/21at 09:35; Start 02/03/21 at 07:30 Atenolol (Tenormin) 50 mg DAILY PO Last administered on 02/08/21at 09:35; Start 02/04/21 at 15:00 Docusate Sodium (Colace) 100 mg DAILY PO Last administered on 02/06/21at 08:15; Start 02/04/21 at 15:00 Ferrous Sulfate (Feosol) 325 mg BIDWMEALS PO Last administered on 02/08/21at 09:35; Start 02/04/21 at 17:00 Hydrochlorothiazide (Hydrodiuril) 50 mg DAILY PO Last administered on 02/08/21at 09:34; Start 02/04/21 at 15:00 Oxycodone/ Acetaminophen (Percocet 5/325) 1 tab PRN Q6HRS PRN PO PAIN; Start 02/04/21 at 13:15 Nifedipine (Procardia Xl) 30 mg DAILY PO Last administered on 02/08/21at 09:34; Start 02/04/21 at 15:00 Metformin HCl (Glucophage Xr) 500 mg DAILYWBKFT PO Last administered on 02/08/21at 09:35; Start 02/04/21 at 15:00 Active Scripts Active Percocet 5-325 Mg Tablet (Oxycodone/Acetaminophen) 1 Each Tablet 1 Tab PO PRN Q6HRS PRN 5 Days Metformin Hcl Er (Metformin Hcl) 500 Mg Tab.er.24h 500 Mg PO DAILYWBKFT 30 Days Reported Klonopin (Clonazepam) 1 Mg Tablet 1 Tab PO TID Trazodone Hcl 100 Mg Tablet 75 Mg PO HS Keflex (Cephalexin) 750 Mg Capsule 500 Mg PO TID Ferrous Sulfate 325 Mg Tablet 1 Tab PO BID Cyclobenzaprine Hcl 10 Mg Tablet 10 Mg PO HS Nifedipine Er (Nifedipine) 30 Mg Tablet.er 30 Mg PO HS Atenolol 50 Mg Tablet 50 Mg PO DAILY Losartan Potassium 100 Mg Tablet 100 Mg PO DAILY16 Colace (Docusate Sodium) 100 Mg Capsule 100 Mg PO DAILY Gabapentin 600 Mg Tablet 1,800 Mg PO BID Levothyroxine Sodium 200 Mcg Tablet 200 Mcg PO DAILYAC Hydrochlorothiazide Tablet (Hydrochlorothiazide) 25 Mg Tablet 50 Mg PO DAILY Vital Signs Vital Signs Date Time Temp Pulse Resp B/P (MAP) Pulse Ox O2 Delivery O2 Flow Rate FiO2 02/08/21 11:00 98.3 85 14 136/79 (98) 93 Room Air 98.3 Labs Laboratory Tests Test 02/08/21 09:30 White Blood Count 4.9 x10^3/uL (4.0-11.0) Red Blood Count 3.06 x10^6/uL (4.30-5.70) Hemoglobin 9.4 g/dL (13.0-17.5) Hematocrit 28.6 % (39.0-53.0) Mean Corpuscular Volume 94 fL (79-100) Mean Corpuscular Hemoglobin 31 pg (25-35) Mean Corpuscular Hemoglobin Concent 33 g/dL (31-37) Red Cell Distribution Width 14.5 % (11.5-14.5) Platelet Count 301 x10^3/uL (140-400) Neutrophils (%) (Auto) 63 % (31-73) Lymphocytes (%) (Auto) 24 % (24-48) Monocytes (%) (Auto) 7 % (0-9) Eosinophils (%) (Auto) 6 % (0-3) Basophils (%) (Auto) 1 % (0-3) Neutrophils # (Auto) 3.1 x10^3/uL (1.8-7.7) Lymphocytes # (Auto) 1.2 x10^3/uL (1.0-4.8) Monocytes # (Auto) 0.3 x10^3/uL (0.0-1.1) Eosinophils # (Auto) 0.3 x10^3/uL (0.0-0.7) Basophils # (Auto) 0.0 x10^3/uL (0.0-0.2) Erythrocyte Sedimentation Rate 67 (0-15) Sodium Level 145 mmol/L (136-145) Potassium Level 4.0 mmol/L (3.5-5.1) Chloride Level 105 mmol/L (98-107) Carbon Dioxide Level 34 mmol/L (21-32) Anion Gap 6 (6-14) Blood Urea Nitrogen 5 mg/dL (8-26) Creatinine 0.7 mg/dL (0.7-1.3) Estimated GFR (Cockcroft-Gault) 115.4 BUN/Creatinine Ratio 7 (6-20) Glucose Level 93 mg/dL (70-99) Calcium Level 9.5 mg/dL (8.5-10.1) Total Bilirubin 0.4 mg/dL (0.2-1.0) Aspartate Amino Transf (AST/SGOT) 13 U/L (15-37) Alanine Aminotransferase (ALT/SGPT) 19 U/L (16-63) Alkaline Phosphatase 81 U/L (46-116) Creatine Kinase 107 U/L (39-308) Total Protein 7.4 g/dL (6.4-8.2) Albumin 3.5 g/dL (3.4-5.0) Albumin/Globulin Ratio 0.9 (1.0-1.7) Laboratory Tests Test 02/08/21 09:30 White Blood Count 4.9 x10^3/uL (4.0-11.0) Red Blood Count 3.06 x10^6/uL (4.30-5.70) Hemoglobin 9.4 g/dL (13.0-17.5) Hematocrit 28.6 % (39.0-53.0) Mean Corpuscular Volume 94 fL (79-100) Mean Corpuscular Hemoglobin 31 pg (25-35) Mean Corpuscular Hemoglobin Concent 33 g/dL (31-37) Red Cell Distribution Width 14.5 % (11.5-14.5) Platelet Count 301 x10^3/uL (140-400) Neutrophils (%) (Auto) 63 % (31-73) Lymphocytes (%) (Auto) 24 % (24-48) Monocytes (%) (Auto) 7 % (0-9) Eosinophils (%) (Auto) 6 % (0-3) Basophils (%) (Auto) 1 % (0-3) Neutrophils # (Auto) 3.1 x10^3/uL (1.8-7.7) Lymphocytes # (Auto) 1.2 x10^3/uL (1.0-4.8) Monocytes # (Auto) 0.3 x10^3/uL (0.0-1.1) Eosinophils # (Auto) 0.3 x10^3/uL (0.0-0.7) Basophils # (Auto) 0.0 x10^3/uL (0.0-0.2) Erythrocyte Sedimentation Rate 67 (0-15) Sodium Level 145 mmol/L (136-145) Potassium Level 4.0 mmol/L (3.5-5.1) Chloride Level 105 mmol/L (98-107) Carbon Dioxide Level 34 mmol/L (21-32) Anion Gap 6 (6-14) Blood Urea Nitrogen 5 mg/dL (8-26) Creatinine 0.7 mg/dL (0.7-1.3) Estimated GFR (Cockcroft-Gault) 115.4 BUN/Creatinine Ratio 7 (6-20) Glucose Level 93 mg/dL (70-99) Calcium Level 9.5 mg/dL (8.5-10.1) Total Bilirubin 0.4 mg/dL (0.2-1.0) Aspartate Amino Transf (AST/SGOT) 13 U/L (15-37) Alanine Aminotransferase (ALT/SGPT) 19 U/L (16-63) Alkaline Phosphatase 81 U/L (46-116) Creatine Kinase 107 U/L (39-308) Total Protein 7.4 g/dL (6.4-8.2) Albumin 3.5 g/dL (3.4-5.0) Albumin/Globulin Ratio 0.9 (1.0-1.7) Allergies Allergies Coded Allergies Type Severity Reaction Last Updated Verified fentanyl Allergy Intermediate Rash 06/20/16 Yes escitalopram Adverse Reaction Severe 11/17/20 Yes fluoxetine Adverse Reaction Severe 06/20/16 Yes duloxetine Adverse Reaction Intermediate Nausea and Vomiting 06/20/16 Yes metaxalone Adverse Reaction Intermediate Nausea and Vomiting 06/20/16 Yes oxycodone Adverse Reaction Intermediate Nausea and Vomiting 06/20/16 Yes pregabalin Adverse Reaction Intermediate Nausea and Vomiting 06/20/16 Yes tramadol Adverse Reaction Intermediate Nausea and Vomiting 06/20/16 Yes Disposition/Orders: Other (D/C TO SNF) Justicifation of Admission Dx: Justifications for Admission: Justification of Admission Dx: Yes KEITH CHIN MD Feb 08, 2021 15:09
[2021-02-08] MEDS ORDERED: LACT1CAP19 PO (15:19)
[2021-02-08] MEDS ORDERED: DAPT350V IV (15:19)
[2021-02-08] MEDS ORDERED: GABA300C18 PO (15:19)
[2021-02-08] MEDS ORDERED: TAMS0.4C97 PO (15:19)
[2021-02-08] MEDS ORDERED: METH10TA2 PO (15:19)
[2021-02-08] MEDS ORDERED: MAGN400O7 PO (15:19)
[2021-02-08] MEDS ORDERED: CALC200T23 PO (15:19)
[2021-02-08] MEDS ORDERED: POLY17PO52 PO (15:19)
[2021-02-08] MEDS ORDERED: MERO500V24 IV (15:19)
[2021-02-08] MEDS ORDERED: PANT40TA77 PO (15:19)
[2021-02-08] MEDS ORDERED: MICA100V4 IV (15:19)
[2021-02-08] MEDS ORDERED: MAG30ORA2 PO (15:19)
[2021-02-08] MEDS ORDERED: OXYC1TAB15 PO (15:20)
--- NOTE | 2021-02-08 15:23 | SNU/HH DC ---
DISCHARGE ORDERS DISCHARGE INFORMATION: DISCHARGE DATE: Feb 08, 2021 FINAL DIAGNOSIS Problems Medical Problems: (1) Urinary retention Status: Acute CONDITION ON DISCHARGE: Stable CODE STATUS: Code Status: Full CUSTODIAL: SNF STAY <30 DAYS: Yes HOSPICE: HOSPICE: No HOSPICE EVAL & TREAT: No LTAC: ADMIT TO LTAC: No POST DISCHARGE ORDERS: ACTIVITY ORDERS: Activity as tolerated, Walk in house, Other, see below WEIGHT BEARING STATUS: No restrictions, Full weight bearing, As tolerated BATHING ORDERS: Shower-keep dressing dry, No Tub Bath until see DIET AFTER DISCHARGE: ADA WOUND/INCISION CARE: Ice to area for comfort, Keep wound/cast CDI, Keep wound elevated, Do not change dressing CHECKS AFTER DISCHARGE: CHECKS AFTER DISCHARGE: Check blood press - daily, Check blood sugar, ac/hs, Weigh Yourself Daily FOLLOW-UP: PHYSICIAN FOLLOW-UP: ID IN 2 WEEKS, DR ANDRE 2 WEEKS LAB ORDERS FOR FOLLOW-UP: WEEKLY CBC, COMP, CRP TREATMENT/EQUIPMENT ORDERS: ADAPTIVE EQUIPMENT NEEDED: None, Front wheeled walker Physical Therapy For: Evalulation/Treatment Occupational Therapy For: Evaluation/Treatment Speech Language Pathology For: Evaluation/Treatment DISCHARGE MEDICATIONS: Home Meds Active Scripts Oxycodone/Apap 5-325 (PERCOCET 5-325 MG TABLET ) 1 Each Tablet, 1 TAB PO PRN Q6HRS PRN for PAIN for 14 Days, #30 TAB 0 Refills Prov:KEITH CHIN MD 02/08/21 Lactobacillus Rhamnosus Gg (CULTURELLE) 1 Each Cap.sprink, 1 CAP PO BID for SUPPLEMENT for 60 Days, #120 CAP Prov:KEITH CHIN MD 02/08/21 Pantoprazole Sodium (PANTOPRAZOLE SODIUM ) 40 Mg Tablet.dr, 40 MG PO DAILYAC for GERD for 30 Days, #30 TAB.SR Prov:KIETH CHIN MD 02/08/21 Polyethylene Glycol 3350 (POLYETHYLENE GLYCOL 3350) 17 Gm Powd.pack, 17 GM PO DAILY for PREVENT CONSTIPATION for 30 Days, #30 PKT Prov:KEITH CHIN MD 02/08/21 Magnesium Hydroxide (MILK OF MAGNESIA) 400 Mg/5 Ml Oral.susp, 2400 MG PO PRN Q12HR PRN for CONSTIPATION (1st Choice) for 30 Days, #120 MISC Prov:KEITH CHIN MD 02/08/21 Mag Hydrox/Al Hydrox/Simeth (MAG-AL PLUS XS SUSPENSION) 30 Ml Oral.susp, 30 ML PO PRN Q3HRS PRN for HEARTBURN / GAS for 30 Days, #240 MISC Prov:KEITH CHIN MD 02/08/21 Calcium Carbonate (CALCIUM CARBONATE) 200 Mg Tab.chew, 500 MG PO PRN Q3HRS PRN for UPSET STOMACH for 30 Days, #90 TAB.CHEW Prov:KEITH CHIN MD 02/08/21 Gabapentin (GABAPENTIN) 300 Mg Capsule, 300 MG PO QID for PAIN for 30 Days, #120 CAP Prov:KEITH CHIN MD 02/08/21 Methadone Hcl (METHADONE HCL) 10 Mg Tablet, 10 MG PO TID for PAIN for 28 Days, #84 TAB Prov:KEITH CHIN MD 02/08/21 Tamsulosin Hcl (FLOMAX) 0.4 Mg Cap.er.24h, 0.4 MG PO QHS for BPH for 30 Days, #30 CAP.SR Prov:KEITH CHIN MD 02/08/21 Micafungin Sodium (Micafungin) 100 Mg Vial, 100 MG IV Q 24 HRS for INFECTION for 14 Days, #14 EACH Prov:KEITH CHIN MD 02/08/21 Daptomycin (Daptomycin) 350 Mg Vial, 350 MG IV Q 24 HRS for OSTEOMYELITIS for 21 Days, #21 EACH Prov:KEITH CHIN MD 02/08/21 Meropenem (MEROPENEM) 500 Mg Vial, 500 MG IV Q 6 HRS for INFECTION for 21 Days, EACH Prov:KEITH CHIN MD 02/08/21 Metformin Hcl (METFORMIN HCL ER) 500 Mg Tab.er.24h, 500 MG PO DAILYWBKFT for ANTI-DIABETIC for 30 Days, #30 TAB 2 Refills Prov:VIKI HOWE MD 11/19/20 Reported Medications Clonazepam (KLONOPIN) 1 Mg Tablet, 1 TAB PO TID for anxiety/sleep, #90 TAB 1 Refill 01/26/21 Trazodone Hcl (TRAZODONE HCL) 100 Mg Tablet, 75 MG PO HS for sleep, TAB 01/26/21 Ferrous Sulfate (FERROUS SULFATE) 325 Mg Tablet, 1 TAB PO BID, #60 TAB 3 Refills 06/23/16 Nifedipine (NIFEDIPINE ER) 30 Mg Tablet.er, 30 MG PO HS, TAB.SR 06/02/16 Atenolol (ATENOLOL) 50 Mg Tablet, 50 MG PO DAILY, TAB 06/02/16 Docusate Sodium (COLACE) 100 Mg Capsule, 100 MG PO DAILY 02/03/14 Levothyroxine Sodium (LEVOTHYROXINE SODIUM) 200 Mcg Tablet, 200 MCG PO DAILYAC for THYROID SUPPLEMENT, #30 TAB 0 Refills 01/22/14 Hydrochlorothiazide (HYDROCHLOROTHIAZIDE TABLET ) 25 Mg Tablet, 50 MG PO DAILY for DIURETIC, TAB 0 Refills 01/22/14 Discontinued Reported Medications Cephalexin (KEFLEX) 750 Mg Capsule, 500 MG PO TID for abx, CAP 01/26/21 Cyclobenzaprine Hcl (CYCLOBENZAPRINE HCL) 10 Mg Tablet, 10 MG PO HS, TAB 06/02/16 Losartan Potassium (LOSARTAN POTASSIUM) 100 Mg Tablet, 100 MG PO DAILY16, TAB 06/02/16 Gabapentin (GABAPENTIN) 600 Mg Tablet, 1800 MG PO BID, CAP 02/03/14 KEITH CHIN MD Feb 08, 2021 15:23
[2021-02-08] MEDS ORDERED: CLON-77 PO (15:38)
[2021-02-08] MEDS: MICAFUNGIN 100 MG in IV DEXTROSE 5% 100ML 100 ML IV SCH (16:19)
[2021-02-08 19:43] VITALS: BP 134/79
== END 2021-02-08 20:20 | DRG 551 ==
LOC: ER 13:31 → 4 NORTH 17:15
PROVIDERS: ADMIT Family Medicine; ATTEND Family Medicine
PROC: 02HV33Z Insertion of Infusion Device into Superior Vena Cava, Percutaneous Approach (ICD-10-PCS; principal; 2021-01-28)
PROC: B5181ZA Fluoroscopy of Superior Vena Cava using Low Osmolar Contrast, Guidance (ICD-10-PCS; 2021-01-28)
PROC: B548ZZA Ultrasonography of Superior Vena Cava, Guidance (ICD-10-PCS; 2021-01-28)
PROC: 30233N1 Transfusion of Nonautologous Red Blood Cells into Peripheral Vein, Percutaneous Approach (ICD-10-PCS; 2021-01-29)
DX: M48.061 Spinal stenosis, lumbar region without neurogenic claudication (principal); N17.0 Acute kidney failure with tubular necrosis; R33.9 Retention of urine, unspecified; D64.9 Anemia, unspecified; D69.6 Thrombocytopenia, unspecified; E03.9 Hypothyroidism, unspecified; F20.9 Schizophrenia, unspecified; F32.9 Major depressive disorder, single episode, unspecified; F41.9 Anxiety disorder, unspecified; E11.40 Type 2 diabetes mellitus with diabetic neuropathy, unspecified; G89.29 Other chronic pain; I10 Essential (primary) hypertension; I25.10 Atherosclerotic heart disease of native coronary artery without angina pectoris; Z87.01 Personal history of pneumonia (recurrent); T50.995A Adverse effect of other drugs, medicaments and biological substances, initial encounter; M17.12 Unilateral primary osteoarthritis, left knee; M48.02 Spinal stenosis, cervical region; Z20.822 Contact with and (suspected) exposure to COVID-19; Z79.891 Long term (current) use of opiate analgesic; Z82.49 Family history of ischemic heart disease and other diseases of the circulatory system; Z86.19 Personal history of other infectious and parasitic diseases; Z87.891 Personal history of nicotine dependence; Z96.651 Presence of right artificial knee joint; Z86.718 Personal history of other venous thrombosis and embolism; G47.30 Sleep apnea, unspecified; Z88.1 Allergy status to other antibiotic agents; Z88.5 Allergy status to narcotic agent; Z88.8 Allergy status to other drugs, medicaments and biological substances; Y92.89 Other specified places as the place of occurrence of the external cause
CPT/HCPCS: 36415; 36430; 36573; 51702; 72110; 72132; 72156; 72157; 73560; 73562; 74021; 76700; 76937; 77001; 80048; 80053; 81001; 82274; 82378; 82525; 82550; 82607; 82668; 82728; 82962; 83010; 83520; 83540; 83550; 83615; 84165; 84550; 85025; 85027; 85045; 85610; 85651; 86140; 86850; 86900; 86901; 86920; 87077; 87086; 87426; 96374; 96375; A9575; C1751; C1892; C9113; J0878; J1170; J1644; J1815; J2060; J2185; J2248; J2270; J2405; J3010; J3420; J3490; J7060; P9016; Q9967; U0003; 97110-GP; 97116-GP; 97530-GO; 97530-GP; 97535-GO; 99285-25; G0378

== ENCOUNTER 2021-04-24 15:47 | Emergency (ER) | payer MEDICARE ==
[~2021-04-24] VITALS: Ht 172.7 cm; Wt 86.3 kg
[~2021-04-24 15:47] MED LIST changes: +CALC200T23 PO; +CEPH750C9 PO; +CLON-77 PO; +CLON1TAB PO; +DAPT350V IV; +GABA300C18 PO; +LACT1CAP19 PO; +MAG30ORA2 PO; +MAGN400O7 PO; +MERO500V24 IV; +METH-572 PO; -METH10TA2 PO; +MICA100V4 IV; +PANT40TA77 PO; +POLY17PO52 PO; +TAMS0.4C97 PO; +TRAZ-123 PO
[2021-04-24 16:00] VITALS: BP 136/67
[2021-04-24] MEDS ORDERED: ACYC800T88 PO (17:01)
[2021-04-24] MEDS ORDERED: CLONAZEPAM1 MG PO (17:01)
[2021-04-24] MEDS ORDERED: TRAZ-123 PO (17:01)
[2021-04-24] MEDS ORDERED: ATEN100T PO (17:01)
--- NOTE | 2021-04-24 17:06 | PHYS DOC ---
Past Medical History Past Medical History: Anxiety, Arthritis, Constipation, Depression, DVT, Hypertension, Hypothyroid, Pneumonia, Other Additional Past Medical Histor: CHRONIC BACK PAIN, hernia, SLEEP APNEA Past Surgical History: Other Additional Past Surgical Histo: UMBILICAL HERNIA REPAIR, FEMUR FX, VASECTOMY, BACK, RKA Smoking Status: Former Smoker Alcohol Use: Heavy Drug Use: None General Adult EDM: Chief Complaint: BACK PAIN - NO INJURY HPI: HPI: Patient is a 61 year old man with history of depression, anxiety, hypertension, acid reflux among other illnesses who presents to the ED today requesting a refill of trazodone, Klonopin, atenolol. Patient states he has no PCP and ran out of this medications a couple days ago. He also states he has a rash on his left foot since yesterday. Denies any fever. He states he plans to follow-up with Dr. Rowe for chronic back pain which he takes methadone for. Review of Systems: Review of Systems: Constitutional: Request for medication refill. Denies fever or chills. [] Musculoskeletal: Denies back pain or joint pain. [] Integument: Rash on the foot Neurologic: Denies headache, focal weakness or sensory changes. [] [] Psychiatric: Denies depression or anxiety. [] Heart Score: C/O Chest Pain: N/A Risk Factors: Risk Factors: DM, Current or recent (<one month) smoker, HTN, HLP, family history of CAD, obesity. Risk Scores: Score 0 - 3: 2.5% MACE over next 6 weeks - Discharge Home Score 4 - 6: 20.3% MACE over next 6 weeks - Admit for Clinical Observation Score 7 - 10: 72.7% MACE over next 6 weeks - Early Invasive Strategies Allergies: Allergies: Allergies Coded Allergies Type Severity Reaction Last Updated Verified fentanyl Allergy Intermediate Rash 06/20/16 Yes escitalopram Adverse Reaction Severe 11/17/20 Yes fluoxetine Adverse Reaction Severe 06/20/16 Yes duloxetine Adverse Reaction Intermediate Nausea and Vomiting 06/20/16 Yes metaxalone Adverse Reaction Intermediate Nausea and Vomiting 06/20/16 Yes oxycodone Adverse Reaction Intermediate Nausea and Vomiting 06/20/16 Yes pregabalin Adverse Reaction Intermediate Nausea and Vomiting 06/20/16 Yes tramadol Adverse Reaction Intermediate Nausea and Vomiting 06/20/16 Yes Physical Exam: PE: Constitutional: Well developed, well nourished, no acute distress, non-toxic appearance. [] Skin: Left foot with a shingles type rash. Back: No tenderness, no CVA tenderness. [] Extremities: No tenderness, no cyanosis, no clubbing, ROM intact, no edema. [] Neurologic: Alert and oriented X 3, normal motor function, normal sensory function, no focal deficits noted. [] Psychologic: Affect normal, judgement normal, mood normal. [] Current Patient Data: Vital Signs: Vital Signs Date Time Temp Pulse Resp B/P (MAP) Pulse Ox O2 Delivery O2 Flow Rate FiO2 04/24/21 16:00 99.0 74 18 136/67 (97) 97 Room Air 99.0 EKG: EKG: [] Radiology/Procedures: Radiology/Procedures: [] Course & Med Decision Making: Course & Med Decision Making Pertinent Labs and Imaging studies reviewed. (See chart for details) This is a 61-year-old male patient presenting to the ED today requesting a r efill of trazodone 100 mg nightly, Klonopin 1 mg 3 times daily, atenolol 100 mg daily. Also complaining of shingles on the left foot. Ktracs shows 03/26/2021 he got clonazepam 1 mg 90 tablets for 1 month supply as well as clonazepam 0.5 mg 30 tablets 1 month supply. This medication should not be due until 04/26/2021. He appears to have constant supply from one provider. I gave him 6 tablets of Klonopin to take 04/26/2021 and 04/27/2021 and hopefully 04/27/2021 he can be seen by the PCP. Unfortunately 04/26/2021 is a holiday. I will also give him a prescription for trazodone and atenolol. Also give him a Cyclovir for his shingles. Marcelaon Disclaimer: Shane Disclaimer: This electronic medical record was generated, in whole or in part, using a voice recognition dictation system. Departure Departure Impression: Primary Impression: Medication refill Additional Impression: Shingles Qualified Codes: B02.9 - Zoster without complications Disposition: HOME / SELF CARE / HOMELESS Condition: STABLE Referrals: ARMANDO CARLOS MD (PCP) follow up in one week Patient Instructions: Shingles, [id number] Additional Instructions: Please follow-up with your primary care doctor as soon as possible to get the rest of your medicines. Scripts Clonazepam (CLONAZEPAM) 1 Mg Tablet 1 MG PO TID for FOR ANXIETY, #6 TAB Prov: DECRISTIANO Wilman FARRELL 04/24/21 Acyclovir (ACYCLOVIR) 800 Mg Tablet 1 TAB PO 5XDAY, #50 TAB Prov: CRISTIANO KC APRN 04/24/21 Atenolol (ATENOLOL) 100 Mg Tablet 1 TAB PO DAILY, #15 TAB 0 Refills Prov: CRISTIANO KC APRN 04/24/21 Trazodone Hcl (TRAZODONE HCL) 100 Mg Tablet 1 TAB PO QHS, #15 TAB 1 Refill Prov: CRISTIANO KC APRN 04/24/21 CRISTIANO KC APRN Apr 24, 2021 17:06
== END 2021-04-24 17:20 | disposition home or self-care (01) ==
LOC: ER 15:47
DX: B02.9 Zoster without complications (principal); Z76.0 Encounter for issue of repeat prescription; F41.9 Anxiety disorder, unspecified; F32.9 Major depressive disorder, single episode, unspecified; I10 Essential (primary) hypertension; M19.90 Unspecified osteoarthritis, unspecified site; E03.9 Hypothyroidism, unspecified; G89.29 Other chronic pain; F10.20 Alcohol dependence, uncomplicated; Z86.718 Personal history of other venous thrombosis and embolism; Z88.8 Allergy status to other drugs, medicaments and biological substances; Y90.9 Presence of alcohol in blood, level not specified
CPT/HCPCS: 99281; 99283

== ENCOUNTER 2021-05-18 19:49 | Inpatient (IN) | payer MEDICARE ==
[~2021-05-18] VITALS: Ht 172.7 cm; Wt 89.1 kg
[~2021-05-18 19:49] MED LIST changes: +ACYC800T88 PO; +ATEN100T PO
[2021-05-18] MEDS ORDERED: ATROPINE 0.5 MG/5 ML DISP.SYRINGE. ONE (20:05)
[2021-05-18 20:56] LABS: BASO # 0.1 x10^3/uL (0.0-0.2); BASO % 0 % (0-3); EOS % 0 % (0-3); HEMATOCRIT 40.5 % (39.0-53.0); HEMOGLOBIN 13.6 g/dL (13.0-17.5); LYMPH % 17 % (24-48); MEAN CORPUSCULAR HEMOGLOBIN 31 pg (25-35); MEAN CORPUSCULAR HGB CONC 34 g/dL (31-37); MEAN CORPUSCULAR VOLUME 94 fL (79-100); MONO # 0.5 x10^3/uL (0.0-1.1); MONO % 4 % (0-9); NEUT # 9.4 x10^3/uL (1.8-7.7); NEUT % 78 % (31-73); PLATELET COUNT 316 x10^3/uL (140-400); RED BLOOD COUNT 4.31 x10^6/uL (4.30-5.70); RED CELL DISTRIBUTION WIDTH 15.6 % (11.5-14.5); WHITE BLOOD COUNT 12.1 x10^3/uL (4.0-11.0)
[2021-05-18 21:04] LABS: CALCIUM 9.4 mg/dL (8.5-10.1); CREATININE 1.1 mg/dL (0.7-1.3); GFR 68.5
[2021-05-18 21:10] LABS: ALBUMIN 4.1 g/dL (3.4-5.0); TOTAL BILIRUBIN 0.4 mg/dL (0.2-1.0); TOTAL PROTEIN 8.3 g/dL (6.4-8.2)
[2021-05-18] MEDS ORDERED: POTASSIUM CHLORIDE 20MEQ 100 ML IV ONE (21:15)
--- NOTE | 2021-05-18 21:15 | RAD ---
XR CHEST 1V History: Reason: fall, bruising / Spl. Instructions: / History: Comparison: November 18, 2020 Findings: No consolidation or pleural effusion. Normal heart size. No pneumothorax. Impression: 1. No acute cardiopulmonary process. Electronically signed by: Zachary Morrison DO (05/18/2021 9:13 PM) [facility]
--- NOTE | 2021-05-18 21:19 | PHYS DOC ---
Past Medical History Past Medical History: Anxiety, Arthritis, Constipation, Depression, DVT, Hypertension, Hypothyroid, Pneumonia, Other Additional Past Medical Histor: CHRONIC BACK PAIN, hernia, SLEEP APNEA, neuropathy, prostate issues Past Surgical History: Other Additional Past Surgical Histo: UMBILICAL HERNIA REPAIR, FEMUR FX, VASECTOMY, BACK, RKA Smoking Status: Never Smoker Alcohol Use: None Drug Use: None General Adult EDM: Chief Complaint: ALTERED MENTAL STATUS HPI: HPI: Patient is a 61 year old male who presents with 3 days of generalized fatigue. States that he has been sitting in a chair mostly. He fell yesterday, and had called EMS. At that time he was alert and oriented and was able to refuse transport. Today were called back as his mental status has declined. He has been very sleepy, and falling asleep in the middle of conversations. Prior to this they did not think that he slept well the last 3 nights. He states he had a history of infection in his right hand that required IV antibiotics through a PICC line. He continues to take cephalexin. EMS found him bradycardic to 37. They externally paced him and gave him 10 mg of IV Versed in total. They noted that his mental status had improved somewhat after pacing. On arrival patient complains only of pain in the bilateral knees which she fell onto the other day. He is on atenolol. No other beta-blockers or rate controlling medications. Denies chest pain. Denies shortness of breath. Did feel previously like he was going to pass out, but does not have any l ightheadedness at the moment Review of Systems: Review of Systems: Constitutional: Complains of generalized weakness.] Eyes: Denies change in visual acuity. [] HENT: Denies nasal congestion or sore throat. [] Respiratory: Denies cough or shortness of breath. [] Cardiovascular: Denies chest pain or edema. [] GI: Denies abdominal pain, nausea, vomiting, bloody stools or diarrhea. [] : Denies dysuria. [] Musculoskeletal: Complains of bilateral knee pain Integument: Denies rash. [] Neurologic: Denies headache, focal weakness or sensory changes. [] Endocrine: Denies polyuria or polydipsia. [] Lymphatic: Denies swollen glands. [] Psychiatric: Denies depression or anxiety. [] Heart Score: C/O Chest Pain: No Risk Factors: Risk Factors: DM, Current or recent (<one month) smoker, HTN, HLP, family history of CAD, obesity. Risk Scores: Score 0 - 3: 2.5% MACE over next 6 weeks - Discharge Home Score 4 - 6: 20.3% MACE over next 6 weeks - Admit for Clinical Observation Score 7 - 10: 72.7% MACE over next 6 weeks - Early Invasive Strategies Current Medications: Current Medications Medications (Trade) Dose Ordered Sig/Mary Jane Start Time Stop Time Status Last Admin Dose Admin Atropine Sulfate (ATROPINE 0.5mg SYRINGE) 0.5 mg STK-MED ONCE 05/18/21 20:05 05/18/21 20:05 DC Potassium Chloride/Water 100 ml @ 50 mls/hr 1X ONCE 05/18/21 21:15 05/18/21 23:14 UNV Allergies: Allergies: Allergies Coded Allergies Type Severity Reaction Last Updated Verified fentanyl Allergy Intermediate Rash 06/20/16 Yes escitalopram Adverse Reaction Severe 11/17/20 Yes fluoxetine Adverse Reaction Severe 06/20/16 Yes duloxetine Adverse Reaction Intermediate Nausea and Vomiting 06/20/16 Yes metaxalone Adverse Reaction Intermediate Nausea and Vomiting 06/20/16 Yes oxycodone Adverse Reaction Intermediate Nausea and Vomiting 06/20/16 Yes pregabalin Adverse Reaction Intermediate Nausea and Vomiting 06/20/16 Yes tramadol Adverse Reaction Intermediate Nausea and Vomiting 06/20/16 Yes Physical Exam: PE: Constitutional: Fatigued appearing. Closes eyes frequently. Does arouse to voi ce. HENT: Normocephalic, atraumatic, bilateral external ears normal, oropharynx moist, no oral exudates, nose normal. [] Eyes: PERRLA, EOMI, conjunctiva normal, no discharge. [] Neck: Normal range of motion, no tenderness, supple, no stridor. [] Cardiovascular: Ranging from bradycardia to low normal rates, no murmur [] Lungs & Thorax: Bilateral breath sounds clear to auscultation [] Abdomen: Mild upper abdominal tenderness to palpation primarily in the midline.. [] Skin: Warm, dry, no erythema, no rash. [] Back: No tenderness, no CVA tenderness. [] Extremities: No tenderness, no cyanosis, no clubbing, ROM intact, no edema. [] Neurologic: Alert and oriented X 3, normal motor function, normal sensory function, no focal deficits noted. [] Psychologic: Affect normal, judgement normal, mood normal. [] Current Patient Data: Labs: Laboratory Tests Test 05/18/21 20:45 Sodium Level 139 mmol/L (136-145) Potassium Level 3.0 mmol/L (3.5-5.1) L Chloride Level 100 mmol/L (98-107) Carbon Dioxide Level 28 mmol/L (21-32) Anion Gap 11 (6-14) Blood Urea Nitrogen 25 mg/dL (8-26) Creatinine 1.1 mg/dL (0.7-1.3) Estimated GFR (Cockcroft-Gault) 68.5 BUN/Creatinine Ratio 23 (6-20) H Glucose Level 113 mg/dL (70-99) H Calcium Level 9.4 mg/dL (8.5-10.1) Total Bilirubin Pending Aspartate Amino Transferase (AST) Pending Alanine Aminotransferase (ALT) Pending Alkaline Phosphatase Pending Creatine Kinase Pending Total Protein Pending Albumin Pending Albumin/Globulin Ratio Pending Lipase Pending Laboratory Tests 05/18/21 20:45 Vital Signs: Vital Signs Date Time Temp Pulse Resp B/P (MAP) Pulse Ox O2 Delivery O2 Flow Rate FiO2 05/18/21 20:45 48 16 161/84 (109) 95 Room Air 05/18/21 19:50 98.1 98.1 EKG: EKG: Sinus rhythm. Rate 43. Normal LA interval. Normal QRS and QTc. No evidence of blocks. No acute ischemic changes. [] Radiology/Procedures: Radiology/Procedures: [] Impression: [facility] [address] [place] [address] IMAGING REPORT Signed PATIENT: MAURI SUZAO ACCOUNT: [id number] : 1960 LOCATION: ER AGE: 61 SEX: M EXAM STATUS: REG ER ORD. PHYSICIAN: REJI BARNES MD REASON: confusion, falls [phone] PROCEDURE: CT HEAD WO CONTRAST Exam: CT head INDICATION: Confusion TECHNIQUE: Sequential axial images through the head were obtained without the administration of IV contrast. Exposure: One or more of the following in the visualized dose reduction techniques were utilized for this examination: 1. Automated exposure control 2. Adjustment of the MA and/or KV according to patient size 3. Use of iterative of reconstructive technique Comparisons: 11/02/2020 FINDINGS: No focal parenchymal lesion or hemorrhage is identified. There is no midline shift or sulcal effacement. No acute vascular territory infarction is identified. Duque-white distinction is preserved. The ventricular system is within normal limits without compression hydrocephalus. The basal cisterns are well maintained. The visualized portions of the paranasal sinuses and mastoid air cells are well- pneumatized. No acute fractures. IMPRESSION: No acute intracranial abnormality. Electronically signed by: Morenita Barnes MD (05/18/2021 9:53 PM) [facility] DICTATED and SIGNED BY: MORENITA BARNES MD DATE: 05/18/[id number] 0 [facility] [address] [place] [address] IMAGING REPORT Signed PATIENT: MAURI SUAZO ACCOUNT: [id number] : 1960 LOCATION: ER AGE: 61 SEX: M EXAM STATUS: REG ER ORD. PHYSICIAN: REJI BARNES MD REASON: fall, bruising PROCEDURE: KNEE BILAT 3V XR KNEE 3 VIEWS History: Reason: fall, bruising / Spl. Instructions: / History: . Pain Technique: 3 views bilateral knees Comparison: February 08, 2021 Findings: Right knee Right total knee arthroplasty. No dislocation. No acute fracture. Chronic appearing deformity the right distal femur with heterotopic ossification. Degraded evaluation for knee joint effusion on lateral view due to positioning. Left knee: Intraosseous line noted within the proximal tibia. Moderate left knee DJD most prominent within the medial and patellofemoral compartment. No significant knee joint effusion. Intravascular gas noted posteriorly. Impression: 1. No acute osseous abnormality. 2. Right total knee arthroplasty. 3. Moderate left knee DJD. 4. Prominent intravascular gas within the posterior left knee. Electronically signed by: Zachary Posey DO (05/18/2021 9:51 PM) [facility] DICTATED and SIGNED BY: ZACHARY POSEY DO DATE: 05/18/[id number] 0 [facility] [address] [place] [address] IMAGING REPORT Signed PATIENT: MAURI SUAZO ACCOUNT: [id number] : 1960 LOCATION: ER AGE: 61 SEX: M EXAM STATUS: REG ER ORD. PHYSICIAN: REJI BARNES MD REASON: fall, bruising PROCEDURE: CHEST AP ONLY XR CHEST 1V History: Reason: fall, bruising / Spl. Instructions: / History: Comparison: November 18, 2020 Findings: No consolidation or pleural effusion. Normal heart size. No pneumothorax. Impression: 1. No acute cardiopulmonary process. Electronically signed by: Zachary Posey DO (05/18/2021 9:13 PM) [facility] DICTATED and SIGNED BY: ZACHARY POSEY DO DATE: 05/18/21 [id number] [facility] [address] [place] [address] IMAGING REPORT Signed PATIENT: MAURI SUAZO ACCOUNT: [id number] : 1960 LOCATION: ER AGE: 61 SEX: M EXAM STATUS: REG ER ORD. PHYSICIAN: REJI BARNES MD REASON: acute abdominal pain, epigastric PROCEDURE: CT ABD PELV W/ IV CONTRST ONLY Exam: CT of abdomen and pelvis with contrast INDICATION: Acute abdominal pain, epigastric TECHNIQUE: Sequential axial images through the abdomen and pelvis obtained fo llowing the administration of 75 mL of Isovue-370 IV contrast. Sagittal and coronal reformatted images were reconstructed from the axial data and reviewed. Exposure: One or more of the following in the visualized dose reduction techniques were utilized for this examination: 1. Automated exposure control 2. Adjustment of the MA and/or KV according to patient size 3. Use of iterative of reconstructive technique Comparisons: None FINDINGS: Heart size is normal. No pericardial effusion. Visualized lung bases are clear. No pleural effusion. Liver, spleen, pancreas, gallbladder and adrenals are unremarkable. No perinephric inflammation or hydronephrosis. No renal or ureteral calculi are identified. Bladder is partially distended and not well evaluated. Uterus is absent. No abnormal adnexal mass. Large and small bowel are unremarkable. Appendix is nonidentified. No free intra-abdominal air or fluid. No obstruction. Abdominal aorta has a normal course and caliber. No enlarged intra-abdominal lymph nodes are identified. Moderate amount of air noted within the left external iliac vein. Severe degenerative changes in the lumbar spine which appears similar when compared to the study on 01/26/2021. As before there is irregular disc space degenerative changes at L3-L4. No acute fracture. IMPRESSION: 1. Moderate amount of air noted in the left external iliac vein, likely iatrogenic. 2. Otherwise, no acute process identified in the abdomen or pelvis. 3. Similar findings in the lumbar spine compared to prior exams consistent with history of discitis osteomyelitis. Electronically signed by: Morenita Barnes MD (05/18/2021 10:02 PM) [facility] DICTATED and SIGNED BY: MORENITA BARNES MD DATE: 05/18/21 [id number] 0 Course & Med Decision Making: Course & Med Decision Making Pertinent Labs and Imaging studies reviewed. (See chart for details) Patient a 61-year-old male who presents with 3 days of increasing generalized weakness and somnolence with a fall yesterday. On arrival is afebrile, is ill-appearing and somnolent but arouses to voice. On arrival is being paced externally by EMS. This was discontinued and his heart rates were initially in the 60s, coming down to the 40s. EKG shows sinus félix ycardia. No evidence of AV block. Potentially from his atenolol. No chest pain to suggest ischemia, and EKG is nonischemic, however troponin sent. Results may be confounded by external pacing. After pacing was removed, his heart rate came down to the 40s but he was maintaining mentation with good blood pressure so it was not restarted. He did have abdominal tenderness to palpation. Blood cultures, lactate, UA, lipase, ammonia, TSH, CT abdomen/pelvis sent. CT head given his falls and altered mentation. We will certainly require admission following his ED work-up. 2116 Trop negative lactate 2.0 TSH elevated 23. T4/T3 ordered and 100 mcg of levothryoxine IV ordered for presumed primary hypothyroidism. Lipase slightly high, but not diagnostic for pancreatitis. CT head, knee xr, cxr without acute process. IO in good position. Will removed IO given adequate peripheral access now obtained. CT abd/pelvis pending. 2210 CT abd/pelvis without acute findings but did show air in the external iliac vein likely from left sided tibial IO placed prehospital, also showed stable changes related to previous osteomyelitis/discitis in the spine. wbc slightly elevated. Will cover with broad spectrum abx. Will be admitted to telemetry for further monitoring. bradycardia may be from hypothyroidism, beta blockers. 2217 Dragon Disclaimer: Dragon Disclaimer: This electronic medical record was generated, in whole or in part, using a voice recognition dictation system. Departure Departure Impression: Primary Impression: Symptomatic bradycardia Additional Impressions: Hypothyroidism Failure to thrive in adult Altered mental status Disposition: ADMITTED INPATIENT Admitting Physician: BEBO ([facility]) Condition: STABLE Referrals: ARMANDO CARLOS MD (PCP) REJI BARNES MD May 18, 2021 21:19
[2021-05-18] MEDS ORDERED: CONTRAST GIVEN. MC PRN (21:45)
--- NOTE | 2021-05-18 21:54 | RAD ---
XR KNEE 3 VIEWS History: Reason: fall, bruising / Spl. Instructions: / History: . Pain Technique: 3 views bilateral knees Comparison: February 08, 2021 Findings: Right knee Right total knee arthroplasty. No dislocation. No acute fracture. Chronic appearing deform ity the right distal femur with heterotopic ossification. Degraded evaluation for knee joint effusion on lateral view due to positioning. Left knee: Intraosseous line noted within the proximal tibia. Moderate left knee DJD most prominent w ithin the medial and patellofemoral compartment. No significant knee joint effusion. Intravascular ga s noted posteriorly. Impression: 1. No acute osseous abnormality. 2. Right total knee arthroplasty. 3. Moderate left knee DJD. 4. Prominent intravascular gas within the posterior left knee. Electronically signed by: Zachary Morrison DO (05/18/2021 9:51 PM) [facility]
--- NOTE | 2021-05-18 21:56 | RAD ---
Exam: CT head INDICATION: Confusion TECHNIQUE: Sequential axial images through the head were obtained without the administration of IV co ntrast. Exposure: One or more of the following in the visualized dose reduction techniques were utilized for this examination: 1. Automated exposure control 2. Adjustment of the MA and/or KV according to patient size 3. Use of iterative of reconstructive technique Comparisons: 11/02/2020 FINDINGS: No focal parenchymal lesion or hemorrhage is identified. There is no midline shift or sulcal effaceme nt. No acute vascular territory infarction is identified. Duque-white distinction is preserved. The ventricular system is within normal limits without compression hydrocephalus. The basal cisterns are well maintained. The visualized portions of the paranasal sinuses and mastoid air cells are well-pneumatized. No acute fractures. IMPRESSION: No acute intracranial abnormality. Electronically signed by: Morenita Duncan MD (05/18/2021 9:53 PM) [facility]
[2021-05-18] MEDS ORDERED: ATROPINE 0.5 MG/5 ML DISP.SYRINGE. IV ONE (22:00)
[2021-05-18] MEDS ORDERED: IOHEXOL 300 MG/ML 100ML VIAL. IV ONE (22:00)
--- NOTE | 2021-05-18 22:04 | RAD ---
Exam: CT of abdomen and pelvis with contrast INDICATION: Acute abdominal pain, epigastric TECHNIQUE: Sequential axial images through the abdomen and pelvis obtained following the administrati on of 75 mL of Isovue-370 IV contrast. Sagittal and coronal reformatted images were reconstructed fro m the axial data and reviewed. Exposure: One or more of the following in the visualized dose reduction techniques were utilized for this examination: 1. Automated exposure control 2. Adjustment of the MA and/or KV according to patient size 3. Use of iterative of reconstructive technique Comparisons: None FINDINGS: Heart size is normal. No pericardial effusion. Visualized lung bases are clear. No pleural effusion. Liver, spleen, pancreas, gallbladder and adrenals are unremarkable. No perinephric inflammation or hydronephrosis. No renal or ureteral calculi are identified. Bladder is partially distended and not well evaluated. Uterus is absent. No abnormal adnexal mass. Large and small bowel are unremarkable. Appendix is nonidentified. No free intra-abdominal air or flu id. No obstruction. Abdominal aorta has a normal course and caliber. No enlarged intra-abdominal lymph nodes are identifi ed. Moderate amount of air noted within the left external iliac vein. Severe degenerative changes in the lumbar spine which appears similar when compared to the study on . As before there is irregular disc space degenerative changes at L3-L4. No acute fracture. IMPRESSION: 1. Moderate amount of air noted in the left external iliac vein, likely iatrogenic. 2. Otherwise, no acute process identified in the abdomen or pelvis. 3. Similar findings in the lumbar spine compared to prior exams consistent with history of discitis osteomyelitis. Electronically signed by: Morenita Duncan MD (05/18/2021 10:02 PM) [facility]
[2021-05-18] MEDS: POTASSIUM CHLORIDE 10MEQ 100 ML IV SCH (22:09)
[2021-05-18] MEDS ORDERED: VANCOMYCIN 1.5 GM in IV NORMAL SALINE 500ML BAG 500 ML IV SCH (22:30)
[2021-05-18 22:32] LABS: FREE T4 0.9 ng/dL (0.76-1.46)
[2021-05-18] MEDS ORDERED: PIPERACILLIN/TAZOBACTAM 4.5 GM in IV NORMAL SALINE 100ML 100 ML IV ONE (23:00)
[2021-05-18] MEDS ORDERED: VANCOMYCIN 2 GM in IV NORMAL SALINE 500ML BAG 500 ML IV ONE (23:00)
[2021-05-18] MEDS ORDERED: LEVOTHYROXINE SODIUM INJ 100 MCG in NORMAL SALINE 5 ML IVP ONE (23:00)
[2021-05-18] MEDS ORDERED: cefTRIAXone IV Push 1 GM VIAL. IVP ONE (23:00)
[2021-05-19] VITALS (8 sets, daily range): BP systolic 158–191; BP diastolic 67–83
[2021-05-19] MEDS: POTASSIUM CHLORIDE 10MEQ 100 ML IV SCH (00:14)
[2021-05-19] MEDS: VANCOMYCIN PER PHARMACY MC PRN ×2 (01:06→13:59)
--- NOTE | 2021-05-19 01:06 | NUR ---
Pharmacy Vancomycin Dosing Note S:Consulted to monitor and dose vancomycin started 05/19/21. O:MAURI SUAZO is a 61 year old M with Empiric . Height: 5 feet, 8 inches Weight: 85.0 kg [place] Body Weight: 68.40 Adjusted Body Weight: 75.04 Dosing Weight: Actual Other Antibiotics: ZOSYN X1 ER LABS: Last BUN: 25 Last Creatinine: 1.1 Creatinine Clearance: 77 mL/min Last WBC: 12.1 Last Procalcitonin: Tmax (past 24 hours): Microbiology: I/O: Drug Levels: Last level: on at Last dose given 05/19/21 at 0000 Vancomycin Dosing: Loading Dose: 2000 mg x1 Dosing Weight: Actual Target Trough: 15-20 A: Based on: WT AND CRCL P: 1. Begin Vancomycin 1250 mg IV q12h 2. Follow up Trough level on 05/20/21 at 1130 3. Pharmacy will continue to monitor, follow and adjust therapy as needed. ZEESHAN JOHNSTON RPH, 05/19/21 010 Signed: 05/19/21 at 0106 by ZEESHAN JOHNSTON RPH PHA Signed: 05/19/21 at 0107 by ZEESHAN JOHNSTON RPH PHA
[2021-05-19] MEDS ORDERED: CEPH500T PO (02:33)
[2021-05-19] MEDS ORDERED: DICL75TA PO (02:33)
[2021-05-19] MEDS ORDERED: POTA20TA4 PO (02:33)
[2021-05-19] MEDS ORDERED: PANT40TA77 PO (02:33)
[2021-05-19] MEDS ORDERED: PIPERACILLIN/TAZOBACTAM 3.375 GM in IV NORMAL SALINE 50ML 50 ML IV ONE (07:00)
[2021-05-19] MEDS ORDERED: ONDANSETRON PF 4 MG/2 ML VIAL. IVP PRN (08:15)
--- NOTE | 2021-05-19 08:18 | PDOC1 ---
History and Physical Date of Admission Date of Admission DATE: 05/19/21 TIME: 08:08 Identification/Chief Complaint Chief Complaint Confusion Source Source: Chart review, Patient History of Present Illness History of Present Illness Mr Byrnes is a 61-year-old male PMHx hypothyroidism, chronic pain, hernia, back surgery, right total knee replacement, and history of femur fracture and October 2020 osteomyelitis s/p cervical, thoracic, and lumbar epidural abscess drainage who presents to the ED with 3 days of generalized fatigue. States that he has been sitting in a chair mostly. He fell yesterday, and had called EMS. At that time he was alert and oriented and was able to refuse transport. Today were called back as his mental status has declined. He has been very sleepy, and falling asleep in the middle of conversations. Prior to this they did not think that he slept well the last 3 nights. He states he had a history of infection in his right hand that required IV antibiotics through a PICC line. He continues to take cephalexin. EMS found him bradycardic to 37. They externally paced him and gave him 10 mg of IV Versed in total. They noted that his mental status had improved somewhat after pacing. On arrival patient complains only of pain in the bilateral knees which she fell onto the other day. He was recently admitted on 11/02/2020 for spinal epidural abscess, paraspinal cervical abscess, and osteomyelitis. He was readmitted 01/26-02/08 for anemia and urinary retention. WBC 12.1, Hb 13.6, platelets 316, TSH 23.885, CRP 3.6, lactate 2, mag 2, lipase 419, NT proBNP 868, troponin 0, ammonia 0. NA 139, K3, BUN 25, CR 1.1, glucose 113, rapid COVID-19 EKG sinus rhythm with rate 43 bpm normal axis and intervals. No ST segment elevations or T WI. CT head with no acute abnormality. Chest radiograph no acute abnormality, CT abdomen pelvis with contrast reveals. Left external iliac vein. Bilateral knee radiographs right knee prosthesis abnormalities in the left knee DJD with air posteriorly. After findings apparently ILR in the left tibia was removed. Cultures obtained and started on broad-spectrum antibiotics and given IV levothyroxine. Admitted patient for further medical management. Past Medical History Cardiovascular: HTN Pulmonary: Pneumonia, Other CENTRAL NERVOUS SYSTEM: Other GI: Constipation, Hemorrhoids Heme/Onc: Other Psych: Anxiety, Addictions, Depression, Schizophrenia Renal/: Other Endocrine: Hypothyroidism Past Surgical History Past Surgical History: Hernia Repair, Other Family History Family History: Coronary Artery Disease, Heart Disease, Other Social History Smoke: No ALCOHOL: other Drugs: None Current Problem List Problem List Problems Medical Problems: (1) Altered mental status Status: Acute (2) Failure to thrive in adult Status: Acute (3) Hypothyroidism Status: Acute (4) Symptomatic bradycardia Status: Acute Current Medications Current Medications Current Medications Atropine Sulfate (ATROPINE 0.5mg SYRINGE) 0.5 mg STK-MED ONCE .ROUTE ; Start 05/18/21 at 20:05; Stop 05/18/21 at 20:05; Status DC Potassium Chloride/Water 100 ml @ 50 mls/hr 1X ONCE IV ; Start 05/18/21 at 21:15; Stop 05/18/21 at 23:14; Status UNV Potassium Chloride/Water 100 ml @ 100 mls/hr Q1H IV Last administered on 05/19/21at 00:14; Start 05/18/21 at 21:15; Stop 05/18/21 at 23:14; Status DC Iohexol (Omnipaque 300 Mg/ml) 75 ml 1X ONCE IV ; Start 05/18/21 at 22:00; Stop 05/18/21 at 22:01; Status DC Info (CONTRAST GIVEN -- Rx MONITORING) 1 each PRN DAILY PRN MC SEE COMMENTS; Start 05/18/21 at 21:45; Stop 05/20/21 at 21:44 Atropine Sulfate (ATROPINE 0.5mg SYRINGE) 0.5 mg 1X ONCE IV Last administered on 05/18/21at 20:06; Start 05/18/21 at 22:00; Stop 05/18/21 at 22:01; Status DC Levothyroxine Sodium 100 mcg/ Sodium Chloride 5 ml @ 100 mls/hr 1X ONCE IVP Last administered on 05/18/21at 23:26; Start 05/18/21 at 23:00; Stop 05/18/21 at 23:02; Status DC Ceftriaxone Sodium (Rocephin) 1 gm 1X ONCE IVP ; Start 05/18/21 at 23:00; Stop 05/18/21 at 22:21; Status DC Vancomycin HCl 1.5 gm/Sodium Chloride 500 ml @ 250 mls/hr Q8H IV ; Start 05/18/21 at 22:30; Status UNV Piperacillin Sod/ Tazobactam Sod 4.5 gm/Sodium Chloride 100 ml @ 200 mls/hr 1X ONCE IV Last administered on 05/18/21at 23:28; Start 05/18/21 at 23:00; Stop 05/18/21 at 23:29; Status DC Piperacillin Sod/ Tazobactam Sod 3.375 gm/Sodium Chloride 50 ml @ 100 mls/hr 1X ONCE IV Last administered on 05/19/21at 06:29; Start 05/19/21 at 07:00; Stop 05/19/21 at 07:29; Status DC Vancomycin HCl 2 gm/Sodium Chloride 500 ml @ 250 mls/hr 1X ONCE IV Last administered on 05/19/21at 00:06; Start 05/18/21 at 23:00; Stop 05/19/21 at 00:59; Status DC Vancomycin HCl (Vanco Per Pharmacy) 1 each PRN DAILY PRN MC SEE COMMENTS Last administered on 05/19/21at 01:06; Start 05/18/21 at 22:30 Vancomycin HCl 1.25 gm/Sodium Chloride 250 ml @ 167 mls/hr Q12H IV ; Start 05/19/21 at 12:00 Vancomycin HCl (Vancomycin Trough Level) 1 each 1X ONCE MC ; Start 05/20/21 at 11:30; Stop 05/20/21 at 11:31 Lactobacillus Rhamnosus (Culturelle) 1 cap BID PO ; Start 05/19/21 at 09:00 Active Scripts Active Atenolol 100 Mg Tablet 1 Tab PO DAILY Trazodone Hcl 100 Mg Tablet 1 Tab PO QHS Gabapentin 300 Mg Capsule 300 Mg PO QID 30 Days Flomax (Tamsulosin Hcl) 0.4 Mg Cap.er.24h 0.4 Mg PO QHS 30 Days Metformin Hcl Er (Metformin Hcl) 500 Mg Tab.er.24h 500 Mg PO DAILYWBKFT 30 Days Reported Potassium Chloride (Potassium Chloride) 20 Meq Tablet.er 20 Meq PO DAILY Diclofenac Sodium 75 Mg Tablet.dr 1 Tab PO BID Protonix (Pantoprazole Sodium) 40 Mg Tablet.dr 40 Mg PO BIDAC Cephalexin 500 Mg Tablet 500 Mg PO BID Nifedipine Er (Nifedipine) 30 Mg Tablet.er 30 Mg PO HS Levothyroxine Sodium 200 Mcg Tablet 200 Mcg PO DAILYAC Hydrochlorothiazide Tablet (Hydrochlorothiazide) 25 Mg Tablet 50 Mg PO DAILY Allergies Allergies: Coded Allergies: fentanyl (Verified Allergy, Intermediate, Rash, 06/20/16) escitalopram (Verified Adverse Reaction, Severe, 11/17/20) severe headache like head is exploding fluoxetine (Verified Adverse Reaction, Severe, 06/20/16) severe headache like head is exploding duloxetine (Verified Adverse Reaction, Intermediate, Nausea and Vomiting, 06/20/16) metaxalone (Verified Adverse Reaction, Intermediate, Nausea and Vomiting, 06/20/16) oxycodone (Verified Adverse Reaction, Intermediate, Nausea and Vomiting, 06/20/16) pregabalin (Verified Adverse Reaction, Intermediate, Nausea and Vomiting, 06/20/16) tramadol (Verified Adverse Reaction, Intermediate, Nausea and Vomiting, ) ROS Review of System Difficult to obtain due to confusion General: YES: Fatigue, Malaise PSYCHOLOGICAL ROS: No: Anxiety, Behavioral Disorder, Concentration difficultie, Decreased libido, Depression, Disorientation, Hallucinations, Hostility, Irritablity, Memory difficulties, Mood Swings, Obsessive thoughts, Physical abuse, Sexual abuse, Sleep disturbances, Suicidal ideation, Other Eyes: No Blurry vision, No Decreased vision, No Double vision, No Dry eyes, No Excessive tearing, No Eye Pain, No Itchy Eyes, No Loss of vision, No Photophobia, No Scotomata, No Uses contacts, No Uses glasses, No Other HEENT: No: Heacaches, Visual Changes, Hearing change, Nasal congestion, Nasal discharge, Oral lesions, Sinus pain, Sore Throat, Epistaxis, Sneezing, Snoring, Tinnitus, Vertigo, Vocal changes, Other ALLERGY AND IMMUNOLOGY: No: Hives, Insect Bite Sensitivity, Itchy/Watery Eyes, Nasal Congestion, Post Nasal Drip, Seasonal Allergies, Other Hematological and Lymphatic: No: Bleeding Problems, Blood Clots, Blood Transfusions, Brusing, Night Sweats, Pallor, Swollen Lymph Nodes, Other ENDOCRINE: No: Breast Changes, Galactorrhea, Hair Pattern Changes, Hot Flashes, Malaise/lethargy, Mood Swings, Palpitations, Polydipsia/polyuria, Skin Changes, Temperature Intolerance, Unexpected Weight Changes, Other Breast: No New/Changing Breast Lumps, No Nipple changes, No Nipple discharge, No Other Respiratory: No: Cough, Hemoptysis, Orthopnea, Pleuritic Pain, Shortness of breath, SOB with excertion, Sputum Changes, Stridor, Tachypnea, Wheezing, Other Cardiovascular: No Chest Pain, No Palpitations, No Orthopnea, No Paroxysmal Noc. Dyspnea, No Edema, No Lt Headedness, No Other Gastrointestinal: No Nausea, No Vomiting, No Abdominal Pain, No Diarrhea, No Constipation, No Melena, No Hematochezia, No Other Genitourinary: YES Frequency; No Dysuria, No Incontinence, No Hematuria, No Retention, No Discharge, No Urgency, No Pain, No Flank Pain, No Other, No , No , No , No , No , No , No Musculoskeletal: Yes Gait Disturbance; No Joint Pain, No Joint Stiffness, No Joint Swelling, No Muscle Pain, No Muscular Weakness, No Pain In:, No Swelling In:, No Other Neurological: Yes Impaired Coord/balance, Yes Memory Loss, Yes Speech Problems, Yes Tremors; No Behavorial Changes, No Bowel/Bladder ControlChng, No Confusion, No Dizziness, No Gait Disturbance, No Headaches, No Numbness/Tingling, No Seizures, No Visual Changes, No Weakness, No Other Skin: No Dry Skin, No Eczema, No Hair Changes, No Lumps, No Mole Changes, No Mottling, No Nail Changes, No Pruritus, No Rash, No Skin Lesion Changes, No Other, No Acne Physical Exam General: Alert, Cooperative, No acute distress HEENT: Atraumatic, PERRLA, EOMI, Mucous membr. moist/pink Lungs: Clear to auscultation, Normal air movement Heart: S1S2, RRR, no thrills, no rubs, no gallops, no murmurs Abdomen: Normal bowel sounds, Soft, No tenderness, No hepatosplenomegaly, No masses Rectal Exam: not examined Extremities: No clubbing, No cyanosis, No edema, Normal pulses, No tenderness /swelling Skin: No rashes, No breakdown, No significant lesion Neuro: Reflexes 2+ Psych/Mental Status: Other (Drowsy) Vitals Vitals Vital Signs Date Time Temp Pulse Resp B/P (MAP) Pulse Ox O2 Delivery O2 Flow Rate FiO2 05/19/21 03:00 98.3 49 18 171/80 (110) 98 Room Air 98.3 Labs Labs Laboratory Tests Test 9/28/21 20:45 05/18/21 23:07 White Blood Count 12.1 x10^3/uL (4.0-11.0) Red Blood Count 4.31 x10^6/uL (4.30-5.70) Hemoglobin 13.6 g/dL (13.0-17.5) Hematocrit 40.5 % (39.0-53.0) Mean Corpuscular Volume 94 fL (79-100) Mean Corpuscular Hemoglobin 31 pg (25-35) Mean Corpuscular Hemoglobin Concent 34 g/dL (31-37) Red Cell Distribution Width 15.6 % (11.5-14.5) Platelet Count 316 x10^3/uL (140-400) Neutrophils (%) (Auto) 78 % (31-73) Lymphocytes (%) (Auto) 17 % (24-48) Monocytes (%) (Auto) 4 % (0-9) Eosinophils (%) (Auto) 0 % (0-3) Basophils (%) (Auto) 0 % (0-3) Neutrophils # (Auto) 9.4 x10^3/uL (1.8-7.7) Lymphocytes # (Auto) 2.0 x10^3/uL (1.0-4.8) Monocytes # (Auto) 0.5 x10^3/uL (0.0-1.1) Eosinophils # (Auto) 0.0 x10^3/uL (0.0-0.7) Basophils # (Auto) 0.1 x10^3/uL (0.0-0.2) Sodium Level 139 mmol/L (136-145) Potassium Level 3.0 mmol/L (3.5-5.1) Chloride Level 100 mmol/L (98-107) Carbon Dioxide Level 28 mmol/L (21-32) Anion Gap 11 (6-14) Blood Urea Nitrogen 25 mg/dL (8-26) Creatinine 1.1 mg/dL (0.7-1.3) Estimated GFR (Cockcroft-Gault) 68.5 BUN/Creatinine Ratio 23 (6-20) Glucose Level 113 mg/dL (70-99) Lactic Acid Level 2.0 mmol/L (0.4-2.0) Calcium Level 9.4 mg/dL (8.5-10.1) Magnesium Level 2.0 mg/dL (1.8-2.4) Total Bilirubin 0.4 mg/dL (0.2-1.0) Aspartate Amino Transf (AST/SGOT) 16 U/L (15-37) Alanine Aminotransferase (ALT/SGPT) 31 U/L (16-63) Alkaline Phosphatase 87 U/L (46-116) Ammonia < 10 mcmol/L (11-34) Creatine Kinase 177 U/L (39-308) Troponin I Quantitative < 0.017 ng/mL (0.000-0.055) C-Reactive Protein, Quantitative 3.6 mg/L (0-3.3) SU-Bji-[id number]-Type Natriuretic Peptide 868 pg/mL (0-124) Total Protein 8.3 g/dL (6.4-8.2) Albumin 4.1 g/dL (3.4-5.0) Albumin/Globulin Ratio 1.0 (1.0-1.7) Lipase 419 U/L (73-393) Thyroid Stimulating Hormone (TSH) 23.885 uIU/mL (0.358-3.74) Free Thyroxine 0.90 ng/dL (0.76-1.46) Free Triiodothyronine (T3) pg/mL 0.98 pg/mL (2.18-3.98) SARS-CoV-2 Antigen (Rapid) Negative (NEGATIVE) Laboratory Tests Test 05/18/21 20:45 05/18/21 23:07 White Blood Count 12.1 x10^3/uL (4.0-11.0) Red Blood Count 4.31 x10^6/uL (4.30-5.70) Hemoglobin 13.6 g/dL (13.0-17.5) Hematocrit 40.5 % (39.0-53.0) Mean Corpuscular Volume 94 fL (79-100) Mean Corpuscular Hemoglobin 31 pg (25-35) Mean Corpuscular Hemoglobin Concent 34 g/dL (31-37) Red Cell Distribution Width 15.6 % (11.5-14.5) Platelet Count 316 x10^3/uL (140-400) Neutrophils (%) (Auto) 78 % (31-73) Lymphocytes (%) (Auto) 17 % (24-48) Monocytes (%) (Auto) 4 % (0-9) Eosinophils (%) (Auto) 0 % (0-3) Basophils (%) (Auto) 0 % (0-3) Neutrophils # (Auto) 9.4 x10^3/uL (1.8-7.7) Lymphocytes # (Auto) 2.0 x10^3/uL (1.0-4.8) Monocytes # (Auto) 0.5 x10^3/uL (0.0-1.1) Eosinophils # (Auto) 0.0 x10^3/uL (0.0-0.7) Basophils # (Auto) 0.1 x10^3/uL (0.0-0.2) Sodium Level 139 mmol/L (136-145) Potassium Level 3.0 mmol/L (3.5-5.1) Chloride Level 100 mmol/L (98-107) Carbon Dioxide Level 28 mmol/L (21-32) Anion Gap 11 (6-14) Blood Urea Nitrogen 25 mg/dL (8-26) Creatinine 1.1 mg/dL (0.7-1.3) Estimated GFR (Cockcroft-Gault) 68.5 BUN/Creatinine Ratio 23 (6-20) Glucose Level 113 mg/dL (70-99) Lactic Acid Level 2.0 mmol/L (0.4-2.0) Calcium Level 9.4 mg/dL (8.5-10.1) Magnesium Level 2.0 mg/dL (1.8-2.4) Total Bilirubin 0.4 mg/dL (0.2-1.0) Aspartate Amino Transf (AST/SGOT) 16 U/L (15-37) Alanine Aminotransferase (ALT/SGPT) 31 U/L (16-63) Alkaline Phosphatase 87 U/L (46-116) Ammonia < 10 mcmol/L (11-34) Creatine Kinase 177 U/L (39-308) Troponin I Quantitative < 0.017 ng/mL (0.000-0.055) C-Reactive Protein, Quantitative 3.6 mg/L (0-3.3) QY-Wog-M-Type Natriuretic Peptide 868 pg/mL (0-124) Total Protein 8.3 g/dL (6.4-8.2) Albumin 4.1 g/dL (3.4-5.0) Albumin/Globulin Ratio 1.0 (1.0-1.7) Lipase 419 U/L (73-393) Thyroid Stimulating Hormone (TSH) 23.885 uIU/mL (0.358-3.74) Free Thyroxine 0.90 ng/dL (0.76-1.46) Free Triiodothyronine (T3) pg/mL 0.98 pg/mL (2.18-3.98) SARS-CoV-2 Antigen (Rapid) Negative (NEGATIVE) Images Images CT head: No focal parenchymal lesion or hemorrhage is identified. There is no midline shift or sulcal effacement. No acute vascular territory infarction is identified. Duque-white distinction is preserved. The ventricular system is within normal limits without compression hydrocephalus. The basal cisterns are well maintained. The visualized portions of the paranasal sinuses and mastoid air cells are well- pneumatized. No acute fractures. IMPRESSION: No acute intracranial abnormality. XR KNEE 3 VIEWS: Right knee Right total knee arthroplasty. No dislocation. No acute fracture. Chronic appearing deformity the right distal femur with heterotopic ossification. Degraded evaluation for knee joint effusion on lateral view due to positioning. Left knee: Intraosseous line noted within the proximal tibia. Moderate left knee DJD most prominent within the medial and patellofemoral compartment. No significant knee joint effusion. Intravascular gas noted posteriorly. Impression: 1. No acute osseous abnormality. 2. Right total knee arthroplasty. 3. Moderate left knee DJD. 4. Prominent intravascular gas within the posterior left knee. XR CHEST 1V: No consolidation or pleural effusion. Normal heart size. No pneumothorax. Impression: 1. No acute cardiopulmonary process. CT of abdomen and pelvis with contrast Heart size is normal. No pericardial effusion. Visualized lung bases are clear. No pleural effusion. Liver, spleen, pancreas, gallbladder and adrenals are unremarkable. No perinephric inflammation or hydronephrosis. No renal or ureteral calculi are identified. Bladder is partially distended and not well evaluated. Uterus is absent. No abnormal adnexal mass. Large and small bowel are unremarkable. Appendix is nonidentified. No free int ra-abdominal air or fluid. No obstruction. Abdominal aorta has a normal course and caliber. No enlarged intra-abdominal lymph nodes are identified. Moderate amount of air noted within the left external iliac vein. Severe degenerative changes in the lumbar spine which appears similar when compared to the study on 01/26/2021. As before there is irregular disc space degenerative changes at L3-L4. No acute fracture. IMPRESSION: 1. Moderate amount of air noted in the left external iliac vein, likely iatrogenic. 2. Otherwise, no acute process identified in the abdomen or pelvis. 3. Similar findings in the lumbar spine compared to prior exams consistent with history of discitis osteomyelitis. VTE Prophylaxis Ordered VTE Prophylaxis Devices: No VTE Pharmacological Prophylaxi: Yes Assessment/Plan Assessment/Plan A/P: Symptomatic bradycardia - hold atenolol and CCB, will replace synthroid IV, likely symptomatic hypothyroidism. Cardiology consulted Hypothyroidism - symptomatic coma currently, needs IV levothyroxine Hypokalemia - hold HCTZ Left iliac air - likely iatrogenic from left tibial IO insertion, removed H/o urinary retention - retention more likely medication side effect. 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 Justifications for Admission Other Justification Lumbar spinal stenosis concerning for cauda equina syndrome WARD ESTEVEZ MD May 19, 2021 08:18
[2021-05-19] MEDS: hydrALAZINE 20 MG/ML VIAL. IVP PRN ×2 (09:25→23:23)
[2021-05-19] MEDS: LACTOBACILLUS RHAMNOSUS GG 1 CAPSULE. PO SCH ×2 (09:25→21:20)
[2021-05-19] MEDS ORDERED: ENALAPRILAT 1.25 MG/ML VIAL. IVP PRN (11:45)
[2021-05-19] MEDS ORDERED: LOSARTAN POTASSIUM 50 MG TABLET. PO SCH (11:45)
[2021-05-19] MEDS: VANCOMYCIN 1.25 GM in IV NORMAL SALINE 250ML 250 ML IV SCH ×2 (12:15→23:24)
[2021-05-19] MEDS: GABAPENTIN 300 MG CAPSULE. PO SCH ×3 (12:15→21:21)
--- NOTE | 2021-05-19 13:28 | PDOC2 ---
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 Vazquez SOURCE Source: Chart review HISTORY OF PRESENT ILLNESS HISTORY OF PRESENT ILLNESS This is a 61 yo male who presented secondary to altered mental status and fatigue. HPI obtained from chart review as patient is unable to provide any meaningful information. Patient has been more weak for the last several days. Had a fall the day prior to arrival and EMS was called. Patient was reportedly alert and oriented at that time and refused transport. EMS was called again the following day due to altered mental status. Per report, he has been more fatigued and sleepy, falling asleep during conversations. EMS noted his to be bradycardic with heart rate as low as 37, which prompted this consult. They gave him Versed and externally paced him. Patient is on atenolol at home. External pacing was discontinued upon arrival as his heart rates were initially in the 60s, although was occasionally dropping to the 40's. EKG shows sinus bradycardia. No evidence of AV block. TSH 25. PAST MEDICAL HISTORY Cardiovascular: HTN Pulmonary: Pneumonia, Other (ITZEL) Heme/Onc: Other (DVT ) Psych: Anxiety, Depression Musculoskeletal: low back pain, Osteoarthritis Endocrine: Diabetes, Hypothyroidism, Other (H/o Graves Disease) PAST SURGICAL HISTORY Past Surgical History: Hernia Repair, Other (vasectomy ) FAMILY HISTORY Family History: Diabetes, Heart Disease, Hypertension SOCIAL HISTORY Smoke: Quit ALCOHOL: none Drugs: None Lives: with Family CURRENT MEDICATIONS CURRENT MEDICATIONS Current Medications Medications (Trade) Dose Ordered Sig/Mary Jane Route PRN Reason Start Time Stop Time Status Last Admin Dose Admin Potassium Chloride/Water 100 ml @ 100 mls/hr Q1H IV 05/18/21 21:15 05/18/21 23:14 DC 05/19/21 00:14 Atropine Sulfate (ATROPINE 0.5mg SYRINGE) 0.5 mg 1X ONCE IV 05/18/21 22:00 05/18/21 22:01 DC 05/18/21 20:06 Levothyroxine Sodium 100 mcg/ Sodium Chloride 5 ml @ 100 mls/hr 1X ONCE IVP 05/18/21 23:00 05/18/21 23:02 DC 05/18/21 23:26 Piperacillin Sod/ Tazobactam Sod 4.5 gm/Sodium Chloride 100 ml @ 200 mls/hr 1X ONCE IV 05/18/21 23:00 05/18/21 23:29 DC 05/18/21 23:28 Piperacillin Sod/ Tazobactam Sod 3.375 gm/Sodium Chloride 50 ml @ 100 mls/hr 1X ONCE IV 05/19/21 07:00 05/19/21 07:29 DC 05/19/21 06:29 Vancomycin HCl 2 gm/Sodium Chloride 500 ml @ 250 mls/hr 1X ONCE IV 05/18/21 23:00 05/19/21 00:59 DC 05/19/21 00:06 Vancomycin HCl (Vanco Per Pharmacy) 1 each PRN DAILY PRN MC SEE COMMENTS 05/18/21 22:30 05/19/21 01:06 Vancomycin HCl 1.25 gm/Sodium Chloride 250 ml @ 167 mls/hr Q12H IV 05/19/21 12:00 05/19/21 12:15 Lactobacillus Rhamnosus (Culturelle) 1 cap BID PO 05/19/21 09:00 05/19/21 09:25 Hydralazine HCl (Apresoline Inj) 10 mg PRN Q4HRS PRN IVP ELEVATED BP, SEE COMMENTS 05/19/21 08:15 05/19/21 09:25 Gabapentin (Neurontin) 300 mg QID PO 05/19/21 13:00 05/19/21 12:15 Losartan Potassium (Cozaar) 50 mg DAILY PO 05/19/21 11:45 05/19/21 12:14 ALLERGIES ALLERGIES: Coded Allergies: fentanyl (Verified Allergy, Intermediate, Rash, 06/20/16) escitalopram (Verified Adverse Reaction, Severe, 11/17/20) severe headache like head is exploding fluoxetine (Verified Adverse Reaction, Severe, 06/20/16) severe headache like head is exploding duloxetine (Verified Adverse Reaction, Intermediate, Nausea and Vomiting, 06/20/16) metaxalone (Verified Adverse Reaction, Intermediate, Nausea and Vomiting, 06/20/16) oxycodone (Verified Adverse Reaction, Intermediate, Nausea and Vomiting, 06/20/16) pregabalin (Verified Adverse Reaction, Intermediate, Nausea and Vomiting, 06/20/16) tramadol (Verified Adverse Reaction, Intermediate, Nausea and Vomiting, 06/20/16) ROS Review of System unobtainable PHYSICAL EXAM General: Alert, Cooperative, No acute distress, Other (simple one-word responses. Unable to state name, , year, or location ) HEENT: Atraumatic Lungs: Clear to auscultation Heart: Other (SB rate 55) Abdomen: Soft, No tenderness Extremities: No edema Skin: No significant lesion Neuro: Sensation intact Psych/Mental Status: Mood NL MUSCULOSKELETAL: Osteoarthritic changes both hands VITALS/I&O VITALS/I&O: Vital Signs Date Time Temp Pulse Resp B/P (MAP) Pulse Ox O2 Delivery O2 Flow Rate FiO2 05/19/21 12:14 53 169/67 05/19/21 10:39 98.9 18 97 Room Air 98.9 I & O 05/18/21 05/18/21 05/19/21 14:59 22:59 06:59 Intake Total 555 ml Balance 555 ml LABS Lab: Laboratory Tests Test 05/18/21 20:45 05/18/21 23:07 White Blood Count 12.1 x10^3/uL (4.0-11.0) H Red Blood Count 4.31 x10^6/uL (4.30-5.70) Hemoglobin 13.6 g/dL (13.0-17.5) Hematocrit 40.5 % (39.0-53.0) Mean Corpuscular Volume 94 fL (79-100) Mean Corpuscular Hemoglobin 31 pg (25-35) Mean Corpuscular Hemoglobin Concent 34 g/dL (31-37) Red Cell Distribution Width 15.6 % (11.5-14.5) H Platelet Count 316 x10^3/uL (140-400) Neutrophils (%) (Auto) 78 % (31-73) H Lymphocytes (%) (Auto) 17 % (24-48) L Monocytes (%) (Auto) 4 % (0-9) Eosinophils (%) (Auto) 0 % (0-3) Basophils (%) (Auto) 0 % (0-3) Neutrophils # (Auto) 9.4 x10^3/uL (1.8-7.7) H Lymphocytes # (Auto) 2.0 x10^3/uL (1.0-4.8) Monocytes # (Auto) 0.5 x10^3/uL (0.0-1.1) Eosinophils # (Auto) 0.0 x10^3/uL (0.0-0.7) Basophils # (Auto) 0.1 x10^3/uL (0.0-0.2) Sodium Level 139 mmol/L (136-145) Potassium Level 3.0 mmol/L (3.5-5.1) L Chloride Level 100 mmol/L (98-107) Carbon Dioxide Level 28 mmol/L (21-32) Anion Gap 11 (6-14) Blood Urea Nitrogen 25 mg/dL (8-26) Creatinine 1.1 mg/dL (0.7-1.3) Estimated GFR (Cockcroft-Gault) 68.5 BUN/Creatinine Ratio 23 (6-20) H Glucose Level 113 mg/dL (70-99) H Lactic Acid Level 2.0 mmol/L (0.4-2.0) Calcium Level 9.4 mg/dL (8.5-10.1) Magnesium Level 2.0 mg/dL (1.8-2.4) Total Bilirubin 0.4 mg/dL (0.2-1.0) Aspartate Amino Transferase (AST) 16 U/L (15-37) Alanine Aminotransferase (ALT) 31 U/L (16-63) Alkaline Phosphatase 87 U/L (46-116) Ammonia < 10 mcmol/L (11-34) L Creatine Kinase 177 U/L (39-308) Troponin I Quantitative < 0.017 ng/mL (0.000-0.055) C-Reactive Protein, Quantitative 3.6 mg/L (0-3.3) H XZ-Zvl-[id number]-Type Natriuretic Peptide 868 pg/mL (0-124) H Total Protein 8.3 g/dL (6.4-8.2) H Albumin 4.1 g/dL (3.4-5.0) Albumin/Globulin Ratio 1.0 (1.0-1.7) Lipase 419 U/L (73-393) H Thyroid Stimulating Hormone (TSH) 23.885 uIU/mL (0.358-3.74) H Free Thyroxine 0.90 ng/dL (0.76-1.46) Free Triiodothyronine (T3) pg/mL 0.98 pg/mL (2.18-3.98) L SARS-CoV-2 RNA (KYUNG) Negative (Negative) SARS-CoV-2 Antigen (Rapid) Negative (NEGATIVE) Laboratory Tests 05/18/21 20:45 Laboratory Tests 05/18/21 20:45 ECHOCARDIOGRAM ECHOCARDIOGRAM DISHA <Conclusion> The left ventricular systolic function is normal and the ejection fraction is within normal range. The Ejection Fraction is 50-55%. There is normal LV segmental wall motion. There is no thrombus noted in the left atrial appendage. Doppler and Color-flow revealed trace to mild mitral regurgitation. No evidence of endocarditis on this study. DATE: 11/04/20 [id number] STRESS TEST STRESS TEST Conclusion 1. 1. No evidence of significant ischemia or previous myocardial infarction appreciated. 2. 2. Ejection fraction calculated to be 76% with normal wall motion on gated SPECT images. 3. 3. Normal nuclear imaging scan. DATE: 10/09/13 0953 ASSESSMENT/PLAN ASSESSMENT/PLAN 1. Sinus bradycardia; lowest 37 per EMS report. Externally paced en route. HR improved upon arrival and pacing was discontinued. Lowest 44 since arrival on unit. no pauses or high-grade block. most probably secondary combination of atenolol, Nifedipine and significant hypothyroidism 2. Hypothyroidism; TSH 25. symptomatic. IV replacement 3. Metabolic encephalopathy 4. Hypertension; labile 5. Diabetes, II 6. Hypokelemia 7. Noncompliance; Reported poor compliance with meds Recommendations Hold Atenolol, Nifedipine Avoid AV roselia blocking agents Monitor tele Correction of extra cardiac issues No indication for PPM Could consider outpatient event monitor Supportive care MADISYN POZO MD 05/20/21 0840: CARDIAC CONSULT ASSESSMENT/PLAN ASSESSMENT/PLAN Pt. seen and examined. Agree with above BARREL CAP SETTER note. Supportive care. Late entry for 05/19/21 AMY MONTESINOS APRN May 19, 2021 13:28 MADISYN POZO MD May 20, 2021 08:40
--- NOTE | 2021-05-19 14:46 | NUR ---
SS following for discharge planning. SS reviewed pt chart and discussed with pt RN. Pt is from home with daughter and is currently on room air. Pt on IV Vancomycin. COVID19 negative. Cardiology consulted. ECHO ordered. Per pt's daughter, pt's spouse on 04/01/2021. Pt was at [facility] for skilled rehabilitation but has been at home with home healthcare through [facility]. Pt has no home oxygen but does have his spouses oxygen concentrator. Pt has walker. Physician notified. SS will continue to follow for discharge planning.
[2021-05-19] MEDS: PANTOPRAZOLE 40 MG TABLET.DR. PO SCH (16:45)
--- NOTE | 2021-05-19 17:28 | CARD ---
MR#: [id number] Date of Study: 05/19/2021 Ordering Physician: WARD ESTEVEZ, Referring Physician: WARD ESTEVEZ, Tech: Kelsy Mancia DORINDA APPROVED REPORT EXAM: Two-dimensional and M-mode echocardiogram with Doppler and color Doppler. Other Information Quality : Technically LimitedHR: 56bpm Rhythm : NSR INDICATION CVA/TIA RISK FACTORS Hypertension LEFT VENTRICLE Limited echo secondary to patient noncompliance. The left ventricle is normal size. There is mild co ncentric left ventricular hypertrophy. The left ventricular systolic function is normal and the eject ion fraction is within normal range. LV ejection fraction 55-60%. There is normal LV segmental wall motion. RIGHT VENTRICLE The right ventricle is normal size. There is normal right ventricular wall thickness. The right ventr icular systolic function is normal. ATRIA The left atrium size is normal. The right atrium size is normal. AORTIC VALVE The aortic valve is normal in structure and function. There is no significant aortic valvular stenosi s. MITRAL VALVE The mitral valve is normal in structure and function. There is no evidence of mitral valve prolapse. There is no mitral valve stenosis. GREAT VESSELS Not able to be fully imaged. PERICARDIAL EFFUSION There is no evidence of significant pericardial effusion. Critical Notification Critical Value: No <Conclusion> Limited echo secondary to patient noncompliance. The left ventricle is normal size. The left ventricular systolic function is normal and the ejection fraction is within normal range. LV ejection fraction 55-60%. There is normal LV segmental wall motion. There is mild concentric left ventricular hypertrophy. There is no significant aortic valvular stenosis. Signed by : Shaun Multani MD Electronically Approved : 05/19/2021 17:27:39
--- NOTE | 2021-05-19 17:48 | NUR ---
NURSING PT STARTS SHIFT ALERT, BUT POORLY COMMUNICATIVE. ABLE TO ANSWER WITH FIRST/LAST NAME WHEN ASKED, BUT UNABLE TO ANSWER ANY OTHER ORIENTATION QUESTIONS, ONLY STARES STRAIGHT AHEAD OR AT CEILING. ATTEMPTED TO GET OOB X1 UNASSISTED FOR TOILETING NEEDS. BED ALARM SET AT THAT TIME. THROUGHOUT THE DAY, PT MENTATION ET ALERTNESS HAS IMPROVED. HE IS MUCH MORE CONVERSATIONAL, THOUGH SPEECH IS STILL CONFUSED. SPOKE WITH BOTH DAUGHTERS TODAY, SUSANNE AND SEYMOUR, WHO REPORT THAT THIS HAS BEEN HIS MENTATION FOR THE LAST FEW DAYS, BUT NOT HIS BASELINE. HE CONTINUES TO HAVE BRADYCARDIA, BUT HR IS NOW MID 40'S TO MID 50'S.
[2021-05-19] MEDS: DICLOFENAC SODIUM 25 MG TABLET.DR PO SCH (21:00)
[2021-05-19] MEDS: traZODone 100 MG TABLET. PO SCH (21:20)
[2021-05-19] MEDS: TAMSULOSIN 0.4 MG CAP.ER.24H. PO SCH (21:21)
[2021-05-20 03:25] VITALS: BP 163/81
[2021-05-20] MEDS: PANTOPRAZOLE 40 MG TABLET.DR. PO SCH ×2 (06:16→17:38)
[2021-05-20] MEDS ORDERED: LEVOTHYROXINE 100 MCG TABLET PO SCH (07:00)
[2021-05-20 07:36] VITALS: BP 192/84
[2021-05-20] MEDS: LOSARTAN POTASSIUM 50 MG TABLET. PO SCH (09:36)
[2021-05-20] MEDS: GABAPENTIN 300 MG CAPSULE. PO SCH ×4 (09:36→20:50)
[2021-05-20] MEDS: LACTOBACILLUS RHAMNOSUS GG 1 CAPSULE. PO SCH ×2 (09:36→20:49)
[2021-05-20] MEDS: DICLOFENAC SODIUM 25 MG TABLET.DR PO SCH ×2 (09:37→21:00)
--- NOTE | 2021-05-20 10:48 | NUR ---
SS following up with discharge planning. SS reviewed pt chart and discussed with pt RN. Pt is currently on room air. COVID19 negative. Pt on IV Vancomycin. Cardiology following. SS will continue to follow for discharge planning.
--- NOTE | 2021-05-20 10:56 | PDOC ---
AMY MONTESINOS APRN 05/20/21 1056: CARDIO Progress Notes Date and Time Date of Service 05/20/21 Time of Evaluation 1050 Subjective Subjective: No Chest Pain, No shortness of breath, No Palpitations Vitals Vitals Vital Signs Date Time Temp Pulse Resp B/P (MAP) Pulse Ox O2 Delivery O2 Flow Rate FiO2 05/20/21 09:36 57 192/84 05/20/21 07:36 99.7 18 96 Room Air 99.7 Weight Weight [ ] Input and Output Intake and Output Intake and Output 05/20/21 07:00 Intake Total 760 ml Balance 760 ml Intake Oral 510 ml IV Total 250 ml # Voids 2 Laboratory Labs Laboratory Tests Test 05/19/21 21:19 Glucose (Fingerstick) 88 mg/dL (70-99) Physical Exam HEENT: Neck Supple W Full Motion Chest: Symmetric LUNGS: Other (diminished bases) Heart: S1S2, RRR Abdomen: Soft N/T Extremities: No Edema Neurology: alert, follow commands, confused Assessment Assessment 1. Sinus bradycardia; most probably secondary combination significant hypothyroidism on atenolol, Nifedipine. Presently SR. No significant bradycardia overnight. No indication for PPM 2. Hypothyroidism; TSH 25. symptomatic. 3. Metabolic encephalopathy 4. Hypertension; labile 5. Diabetes, II 6. Hypokelemia 7. Noncompliance; Reported poor compliance with meds Recommendations Hold Atenolol, Nifedipine Increase losartan for BP control Add hydralazine Avoid AV roselia blocking agents Monitor tele Correction of extra cardiac issues Could consider outpatient event monitor Supportive care Justicifation of Admission Dx: Justifications for Admission: Justification of Admission Dx: Yes MADISYN POZO MD 05/20/21 1629: CARDIO Progress Notes Plan Plan The patient was seen and interviewed as well as examined at the bedside. The chart was reviewed. The case was discussed. Agree with the plan of care. AMY MONTESINOS APRN May 20, 2021 10:56 MADISYN POZO MD May 20, 2021 16:29
[2021-05-20 11:37] VITALS: BP 169/84
[2021-05-20 12:54] LABS: VANC TR 17.8 mcg/mL (10.0-20.0)
[2021-05-20] MEDS: VANCOMYCIN 1.25 GM in IV NORMAL SALINE 250ML 250 ML IV SCH ×2 (13:07→23:34)
--- NOTE | 2021-05-20 14:22 | PDOC ---
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 Cardiology consulted Myxedema coma - s/p thyroidectomy, needs total thyroid replacement for Hypothyroidism - s/p IV levothyroxine.for TSH 23 Hypokalemia - hold HCTZ Left iliac air - likely iatrogenic from left tibial IO insertion, removed H/o urinary retention - retention more likely medication side effect. L2-L5 spinal canal stenosis Cervical spine stenosis History osteomyelitis DM2 - sliding scale Normocytic anemia - s/p transfusion previously Leukocytosis - likely reactive due to myxedema coma, will trend Chronic pain Right total knee replacement History of femur fracture October 2020 osteomyelitis T11-12 - MRI changes in cervical and thoracic spine previously Plan: Resume home medications FEN - Cardiac diet PPX - Heparin FULL CODE Dispo - inpatient for above Patient previously named his (Radha Padilla) as surrogate decision-maker but she 03/31/2021 his daughter, Gwen, is his miller helper animal care worker since Radha is not available. History of Present Illness History of Present Illness Mr Byrnes is a 61-year-old male PMHx hypothyroidism, chronic pain, hernia, back surgery, right total knee replacement, and history of femur fracture and October 2020 osteomyelitis s/p cervical, thoracic, and lumbar epidural abscess drainage who presents to the ED with 3 days of generalized fatigue and not speaking to his daughter. She states that he has been sitting in a chair mostly. He fell 05/17/21, and had called EMS. At that time he was able to shake his head to refuse transport. 05/19 called back as his mental status has declined. He has been very sleepy, and falling asleep in the middle of conversations. Prior to this his daughter did not think that he slept well the last 3 nights. EMS found him bradycardic to 37. They externally paced him and gave him 10 mg of IV Versed in total. [He was recently admitted on 11/02/2020 for spinal epidural abscess, paraspinal c ervical abscess, and osteomyelitis. He was readmitted 01/26-02/08 for anemia and urinary retention.] WBC 12.1, Hb 13.6, platelets 316, TSH 23.885, CRP 3.6, lactate 2, mag 2, lipase 419, NT proBNP 868, trop 0, ammonia 0. NA 139, K3, BUN 25, CR 1.1, gluc 113, rapid COVID-19 EKG sinus rhythm with rate 43 bpm normal axis and intervals. No ST segment elevations or T WI. CT head with no acute abnormality. Chest radiograph no acute abnormality, CT abdomen pelvis with contrast reveals. Left external iliac vein. Bilateral knee radiographs right knee prosthesis abnormalities in the left knee DJD with air posteriorly. After findings apparently intraoseous in the left tibia was removed. Cultures obtained and started on broad-spectrum antibiotics and given IV levothyroxine. Admitted patient for further medical management. Cardiology consulted. Overnight still bradycardic, confused, lethargic, requiring full assistance to attempt to eat. Mumbling, makes some eye contact. D/w daughter, Gwen, he likely has not been taking his levothyroxine at home and discussed myxedema coma state. Afebrile. Vitals/I&O Vitals/I&O: Vital Signs Date Time Temp Pulse Resp B/P (MAP) Pulse Ox O2 Delivery O2 Flow Rate FiO2 05/20/21 11:37 99.0 65 18 169/84 (112) 97 Room Air 99.0 I & O 05/19/21 05/19/21 05/20/21 15:00 23:00 07:00 Intake Total 200 ml 310 ml 250 ml Balance 200 ml 310 ml 250 ml Physical Exam General: Alert, No acute distress, Other (simple one-word responses. Unable to state name, , year, or location ) Heart: Other (SB rate 55) Lungs: Clear Abdomen: Soft, No tenderness Extremities: No edema Skin: No significant lesion Labs Labs: Laboratory Tests Test 05/19/21 21:19 05/20/21 12:00 Glucose (Fingerstick) 88 mg/dL (70-99) Vancomycin Level Trough 17.8 mcg/mL (10.0-20.0) Vancomycin Last Dose Date 05/20/21 Vancomycin Last Dose Time 0000 Assessment and Plan Assessmemt and Plan Problems Medical Problems: (1) Altered mental status Status: Acute (2) Failure to thrive in adult Status: Acute (3) Hypothyroidism Status: Acute (4) Symptomatic bradycardia Status: Acute Comment Review of Relevant I have reviewed the following items almas (where applicable) has been applied. Medications: Current Medications Medications (Trade) Dose Ordered Sig/Mary Jane Route PRN Reason Start Time Stop Time Status Last Admin Dose Admin Vancomycin HCl (Vancomycin Trough Level) 1 each 1X ONCE MC 05/20/21 11:30 05/20/21 11:31 DC 05/20/21 11:30 Pantoprazole Sodium (Protonix) 40 mg BIDAC PO 05/19/21 16:30 05/20/21 06:16 Tamsulosin HCl (Flomax) 0.4 mg QHS PO 05/19/21 21:00 05/19/21 21:21 Trazodone HCl (Desyrel) 100 mg QHS PO 05/19/21 21:00 05/19/21 21:20 Diclofenac Sodium (Voltaren) 75 mg BID PO 05/19/21 21:00 05/20/21 09:37 Levothyroxine Sodium (Synthroid) 200 mcg DAILY07 PO 05/20/21 07:00 05/20/21 06:16 Losartan Potassium (Cozaar) 100 mg DAILY PO 05/20/21 09:00 05/20/21 09:36 Justifications for Admission Other Justification Lumbar spinal stenosis concerning for cauda equina syndrome WARD ESTEVEZ MD May 20, 2021 14:22
[2021-05-20 15:04] VITALS: BP 165/79
[2021-05-20] MEDS: VANCOMYCIN PER PHARMACY MC PRN (15:24)
--- NOTE | 2021-05-20 15:26 | NUR ---
Pharmacy Vancomycin Dosing Note S:Consulted to monitor and dose vancomycin started 05/19/21. O:MAURI SUAZO is a 61 year old M with Empiric . Height: 5 feet, 8 inches Weight: 85.7 kg Ward Body Weight: 68.40 Adjusted Body Weight: 75.32 Dosing Weight: Actual Other Antibiotics: ZOSYN X1 ER LABS: Last BUN: 25 Last Creatinine: 1.1 Creatinine Clearance: 77 mL/min Last WBC: 12.1 Last Procalcitonin: Tmax (past 24 hours): 98.9 Microbiology: - I/O: Drug Levels: Last Trough level: 17.8 on 05/20/21 at 1200 Last dose given 05/19/21 at 1215 Vancomycin Dosing: Loading Dose: 2000 mg x1 Dosing Weight: Actual Target Trough: 15-20 A: Based on: TROUGH LEVEL P: 1. Continue Vancomycin 1250 mg IV q12h 2. Follow up Trough level IN 5-7 DAYS NEEDED 3. Pharmacy will continue to monitor, follow and adjust therapy as needed. ALEX URIAS [facility], 05/20/21 [id number]
[2021-05-20 17:38] LABS: BILIRUBIN,URINE SMALL (NEG); COLOR,URINE YELLOW; NITRITE,URINE NEGATIVE (NEG); PROTEIN,URINE >=300 mg/dL (NEG-TRACE); UROBILINOGEN,URINE 0.2 mg/dL (0.2 mg/dL)
[2021-05-20 17:42] LABS: AMORPHOUS SEDIMENT,UR PRESENT /HPF; BACTERIA,URINE 0 /HPF (0-FEW); CLARITY,URINE HAZY; RBC,URINE 0 /HPF (0-2); WBC,URINE OCC /HPF (0-4)
[2021-05-20 18:50] VITALS: BP 187/88
--- NOTE | 2021-05-20 19:45 | NUR ---
assume care, pt alert to self with confusion. pt noted to have difficulty swallowing own secretions suction set up at bedside vss at this time, poc explained to pt will cont to monitor pt. pmrn
[2021-05-20] MEDS: hydrALAZINE 20 MG/ML VIAL. IVP PRN (20:48)
[2021-05-20] MEDS: TAMSULOSIN 0.4 MG CAP.ER.24H. PO SCH (20:49)
[2021-05-20] MEDS: traZODone 100 MG TABLET. PO SCH (20:49)
[2021-05-20] MEDS ORDERED: DEXTROSE 50% 25 GM / 50ML DISP.SYRIN. IV PRN (21:15)
[2021-05-20 22:51] VITALS: BP 167/86
[2021-05-21 02:10] VITALS: BP 179/86
[2021-05-21 04:42] LABS: BASO % 0 % (0-3); EOS # 0.1 x10^3/uL (0.0-0.7); EOS % 1 % (0-3); HEMATOCRIT 38.2 % (39.0-53.0); HEMOGLOBIN 12.9 g/dL (13.0-17.5); LYMPH # 1.9 x10^3/uL (1.0-4.8); LYMPH % 14 % (24-48); MEAN CORPUSCULAR HEMOGLOBIN 32 pg (25-35); MEAN CORPUSCULAR HGB CONC 34 g/dL (31-37); MEAN CORPUSCULAR VOLUME 94 fL (79-100); MONO # 0.5 x10^3/uL (0.0-1.1); MONO % 4 % (0-9); NEUT # 11.6 x10^3/uL (1.8-7.7); NEUT % 82 % (31-73); PLATELET COUNT 258 x10^3/uL (140-400); RED BLOOD COUNT 4.05 x10^6/uL (4.30-5.70); RED CELL DISTRIBUTION WIDTH 15.3 % (11.5-14.5); WHITE BLOOD COUNT 14.1 x10^3/uL (4.0-11.0)
[2021-05-21 05:10] LABS: ALBUMIN 3.6 g/dL (3.4-5.0); ALBUMIN/GLOBULIN RATIO 0.9 (1.0-1.7); CALCIUM 9.3 mg/dL (8.5-10.1); CREATININE 1.4 mg/dL (0.7-1.3); GFR 51.9; TOTAL BILIRUBIN 0.6 mg/dL (0.2-1.0); TOTAL PROTEIN 7.4 g/dL (6.4-8.2)
[2021-05-21 05:12] LABS: POTASSIUM 2.7 mmol/L (3.5-5.1)
[2021-05-21] MEDS: POTASSIUM CHLORIDE 10MEQ 100 ML IV SCH ×4 (05:59→11:01)
[2021-05-21] MEDS: PANTOPRAZOLE 40 MG TABLET.DR. PO SCH ×2 (07:30→16:30)
[2021-05-21 07:55] VITALS: BP 186/88
[2021-05-21] MEDS: GABAPENTIN 300 MG CAPSULE. PO SCH ×4 (09:00→21:00)
[2021-05-21] MEDS ORDERED: LEVOTHYROXINE SODIUM INJ 100 MCG in NORMAL SALINE 5 ML IV ONE (09:00)
[2021-05-21] MEDS: DICLOFENAC SODIUM 25 MG TABLET.DR PO SCH ×2 (09:00→21:00)
[2021-05-21] MEDS: LACTOBACILLUS RHAMNOSUS GG 1 CAPSULE. PO SCH ×2 (09:00→21:00)
[2021-05-21] MEDS: LOSARTAN POTASSIUM 50 MG TABLET. PO SCH (09:00)
[2021-05-21] MEDS: hydrALAZINE 20 MG/ML VIAL. IVP PRN ×2 (09:57→21:57)
[2021-05-21 10:31] VITALS: BP 193/92
--- NOTE | 2021-05-21 11:41 | PDOC ---
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 Cardiology consulted Myxedema coma - s/p thyroidectomy, needs total thyroid replacement for Hypothyroidism - s/p IV levothyroxine.for TSH 23 Hypokalemia - hold HCTZ Left iliac air - likely iatrogenic from left tibial IO insertion, removed H/o urinary retention - retention more likely medication side effect. L2-L5 spinal canal stenosis Cervical spine stenosis History osteomyelitis DM2 - sliding scale Normocytic anemia - s/p transfusion previously Leukocytosis - likely reactive due to myxedema coma, will trend Chronic pain Right total knee replacement History of femur fracture October 2020 osteomyelitis T11-12 - MRI changes in cervical and thoracic spine previously Plan: Resume home medications FEN - Cardiac diet PPX - Heparin FULL CODE Dispo - inpatient for above Patient previously named his (Radha Padilla) as surrogate decision-maker but she 03/31/2021 his daughter, Gwen, is his multimedia project manager health care facility administrator since Radha is not available. History of Present Illness History of Present Illness Mr Byrnes is a 61-year-old male PMHx hypothyroidism, chronic pain, hernia, back surgery, right total knee replacement, and history of femur fracture and October 2020 osteomyelitis s/p cervical, thoracic, and lumbar epidural abscess drainage who presents to the ED with 3 days of generalized fatigue and not speaking to his daughter. She states that he has been sitting in a chair mostly. He fell 05/17/21, and had called EMS. At that time he was able to shake his head to refuse transport. 05/19 called back as his mental status has declined. He has been very sleepy, and falling asleep in the middle of conversations. Prior to this his daughter did not think that he slept well the last 3 nights. EMS found him bradycardic to 37. They externally paced him and gave him 10 mg of IV Versed in total. [He was recently admitted on 11/02/2020 for spinal epidural abscess, paraspinal c ervical abscess, and osteomyelitis. He was readmitted 01/26-02/08 for anemia and urinary retention.] WBC 12.1, Hb 13.6, platelets 316, TSH 23.885, CRP 3.6, lactate 2, mag 2, lipase 419, NT proBNP 868, trop 0, ammonia 0. NA 139, K3, BUN 25, CR 1.1, gluc 113, rapid COVID-19 EKG sinus rhythm with rate 43 bpm normal axis and intervals. No ST segment elevations or T WI. CT head with no acute abnormality. Chest radiograph no acute abnormality, CT abdomen pelvis with contrast reveals. Left external iliac vein. Bilateral knee radiographs right knee prosthesis abnormalities in the left knee DJD with air posteriorly. After findings apparently intraoseous in the left tibia was removed. Cultures obtained and started on broad-spectrum antibiotics and given IV levothyroxine. Admitted patient for further medical management. Cardiology consulted. 05/20: Overnight still bradycardic, confused, lethargic, requiring full assistance to attempt to eat. Mumbling, makes some eye contact. D/w daughter, Gwen, he likely has not been taking his levothyroxine at home and discussed myxedema coma state. Afebrile. Cr up, K down. Verbalizing more today, but still confused, some absence episodes and not able to clear his secretions orally. Vitals/I&O Vitals/I&O: Vital Signs Date Time Temp Pulse Resp B/P (MAP) Pulse Ox O2 Delivery O2 Flow Rate FiO2 05/21/21 10:31 98.5 60 18 193/92 (125) 93 Room Air 98.5 I & O 05/20/21 05/20/21 05/21/21 15:00 23:00 07:00 Intake Total 760 ml 0 ml 0 ml Balance 760 ml 0 ml 0 ml Physical Exam General: Alert, No acute distress, Other (simple one-word responses. Unable to state name, , year, or location ) Heart: Other (SB rate 55) Lungs: Clear Abdomen: Soft, No tenderness Extremities: No edema Skin: No significant lesion Labs Labs: Laboratory Tests Test 05/20/21 12:00 05/20/21 17:00 05/20/21 20:39 05/21/21 03:06 Vancomycin Level Trough 17.8 mcg/mL (10.0-20.0) Vancomycin Last Dose Date 05/20/21 Vancomycin Last Dose Time 0000 Urine Collection Type Unknown Urine Color Yellow Urine Clarity Hazy Urine pH 6.0 (<5.0-8.0) Urine Specific [place] 1.020 (1.000-1.030) Urine Protein >=300 mg/dL (NEG-TRACE) Urine Glucose (UA) Negative mg/dL (NEG) Urine Ketones (Stick) 15 mg/dL (NEG) Urine Blood Negative (NEG) Urine Nitrite Negative (NEG) Urine Bilirubin Small (NEG) Urine Urobilinogen Dipstick 0.2 mg/dL (0.2 mg/dL) Urine Leukocyte Esterase Negative (NEG) Urine RBC 0 /HPF (0-2) Urine WBC Occ /HPF (0-4) Urine Amorphous Sediment Present /HPF Urine Bacteria 0 /HPF (0-FEW) Glucose (Fingerstick) 90 mg/dL (70-99) 111 mg/dL (70-99) Test 05/21/21 04:15 White Blood Count 14.1 x10^3/uL (4.0-11.0) Red Blood Count 4.05 x10^6/uL (4.30-5.70) Hemoglobin 12.9 g/dL (13.0-17.5) Hematocrit 38.2 % (39.0-53.0) Mean Corpuscular Volume 94 fL (79-100) Mean Corpuscular Hemoglobin 32 pg (25-35) Mean Corpuscular Hemoglobin Concent 34 g/dL (31-37) Red Cell Distribution Width 15.3 % (11.5-14.5) Platelet Count 258 x10^3/uL (140-400) Neutrophils (%) (Auto) 82 % (31-73) Lymphocytes (%) (Auto) 14 % (24-48) Monocytes (%) (Auto) 4 % (0-9) Eosinophils (%) (Auto) 1 % (0-3) Basophils (%) (Auto) 0 % (0-3) Neutrophils # (Auto) 11.6 x10^3/uL (1.8-7.7) Lymphocytes # (Auto) 1.9 x10^3/uL (1.0-4.8) Monocytes # (Auto) 0.5 x10^3/uL (0.0-1.1) Eosinophils # (Auto) 0.1 x10^3/uL (0.0-0.7) Basophils # (Auto) 0.0 x10^3/uL (0.0-0.2) Sodium Level 145 mmol/L (136-145) Potassium Level 2.7 mmol/L (3.5-5.1) Chloride Level 106 mmol/L (98-107) Carbon Dioxide Level 25 mmol/L (21-32) Anion Gap 14 (6-14) Blood Urea Nitrogen 23 mg/dL (8-26) Creatinine 1.4 mg/dL (0.7-1.3) Estimated GFR (Cockcroft-Gault) 51.9 BUN/Creatinine Ratio 16 (6-20) Glucose Level 102 mg/dL (70-99) Calcium Level 9.3 mg/dL (8.5-10.1) Total Bilirubin 0.6 mg/dL (0.2-1.0) Aspartate Amino Transf (AST/SGOT) 19 U/L (15-37) Alanine Aminotransferase (ALT/SGPT) 27 U/L (16-63) Alkaline Phosphatase 79 U/L (46-116) Total Protein 7.4 g/dL (6.4-8.2) Albumin 3.6 g/dL (3.4-5.0) Albumin/Globulin Ratio 0.9 (1.0-1.7) Assessment and Plan Assessmemt and Plan Problems Medical Problems: (1) Altered mental status Status: Acute (2) Failure to thrive in adult Status: Acute (3) Hypothyroidism Status: Acute (4) Symptomatic bradycardia Status: Acute Comment Review of Relevant I have reviewed the following items almas (where applicable) has been applied. Medications: Current Medications Medications (Trade) Dose Ordered Sig/Mary Jane Route PRN Reason Start Time Stop Time Status Last Admin Dose Admin Hydralazine HCl (Apresoline) 50 mg BIDAC PO 05/20/21 13:30 05/20/21 17:39 Levothyroxine Sodium 100 mcg/ Sodium Chloride 5 ml @ 100 mls/hr ONCE ONCE IV 05/21/21 09:00 05/21/21 09:02 DC 05/21/21 09:42 Potassium Chloride/Water 100 ml @ 100 mls/hr Q1H IV 05/21/21 06:00 05/21/21 09:59 DC 05/21/21 11:01 Justifications for Admission Other Justification Lumbar spinal stenosis concerning for cauda equina syndrome WARD ESTEVEZ MD May 21, 2021 11:41
[2021-05-21] MEDS: VANCOMYCIN 1.25 GM in IV NORMAL SALINE 250ML 250 ML IV SCH (12:08)
--- NOTE | 2021-05-21 12:25 | NUR ---
SS following up with discharge planning. SS reviewed pt chart and discussed with pt RN. Pt is currently on room air. COVID19 negative. Pt on IV Vancomycin. PT/OT ordered. Neurology consulted. SS will continue to follow for discharge planning.
--- NOTE | 2021-05-21 12:57 | PDOC2 ---
NEUROLOGY CONSULT Date of Service DOS: DATE: 05/21/21 TIME: 12:34 Reason for Consult Reason for Consult: Absence episode Referring Physician Referring Physician: Dr. Vazquez History of Present Illness History of Present Illness The patient is a 61-year-old right-handed male admitted 05/18 with 3 days of generalized fatigue, just sitting in his chair. He fell the day before admission. He refused transport. Emergency medical services returned the day of admission with declining mental status. In the emergency room he was found to have a TSH of 23.885 and bradycardia in the 30s. It turns out that the patient was receiving home health until about 3 weeks ago when his daughter started giving him his medication, but not confirming, apparently, that he took it. I last saw him during his prolonged October hospital stay for extensive epidural abscesses for which he underwent cervical, thoracic, and lumbar laminectomies on 11/05. He had metabolic encephalopathy related to bacteremia, leukocytosis, lactic acidosis, acute kidney injury, rhabdomyolysis, hyponatremia, abnormal liver function test, anemia, thrombocytopenia, and he had a urine drug screen positive for methadone. He has a history of schizophrenia and IV drug abuse. He was here in January with urinary retention. There is no history of stroke, seizure, or head injury. The main purpose of this consult is because the patient speaks very slowly and pauses for up to 45 seconds. Past Medical History Cardiovascular: HTN Pulmonary: Pneumonia, Other (Sleep apnea) GI: Constipation, Hemorrhoids Psych: Anxiety, Addictions, Depression, Schizophrenia Musculoskeletal: low back pain, Osteoarthritis, Other (Extensive cervical, lumbar, thoracic epidural abscesses 11/08, femur fracture) ENT: Other (Tinnitus) Renal/: Other (Urinary retention) Endocrine: Hypothyroidism Past Surgical History Past Surgical History: Hernia Repair (Umbilical), Total knee replacement (Right), Other (Thoracic/lumbar/cervical laminectomies, thyroidectomy, vasectomy, right femur fracture, left bunionectomy, left breast cyst) Family History Family History: CAD, Hypertension Social History Social History Single, used to drink a sixpack of beer a day, ex-smoker, opiate abuse in past, on disability due to his psychiatric condition Current Medications Current Medications Current Medications Atropine Sulfate (ATROPINE 0.5mg SYRINGE) 0.5 mg STK-MED ONCE .ROUTE ; Start 05/18/21 at 20:05; Stop 05/18/21 at 20:05; Status DC Potassium Chloride/Water 100 ml @ 50 mls/hr 1X ONCE IV ; Start 05/18/21 at 21:15; Stop 05/18/21 at 23:14; Status UNV Potassium Chloride/Water 100 ml @ 100 mls/hr Q1H IV Last administered on 05/19/21at 00:14; Start 05/18/21 at 21:15; Stop 05/18/21 at 23:14; Status DC Iohexol (Omnipaque 300 Mg/ml) 75 ml 1X ONCE IV ; Start 05/18/21 at 22:00; Stop 05/18/21 at 22:01; Status DC Info (CONTRAST GIVEN -- Rx MONITORING) 1 each PRN DAILY PRN MC SEE COMMENTS; Start 05/18/21 at 21:45; Stop 05/20/21 at 21:44; Status DC Atropine Sulfate (ATROPINE 0.5mg SYRINGE) 0.5 mg 1X ONCE IV Last administered on 05/18/21at 20:06; Start 05/18/21 at 22:00; Stop 05/18/21 at 22:01; Status DC Levothyroxine Sodium 100 mcg/ Sodium Chloride 5 ml @ 100 mls/hr 1X ONCE IVP Last administered on 05/18/21at 23:26; Start 05/18/21 at 23:00; Stop 05/18/21 at 23:02; Status DC Ceftriaxone Sodium (Rocephin) 1 gm 1X ONCE IVP ; Start 05/18/21 at 23:00; Stop 05/18/21 at 22:21; Status DC Vancomycin HCl 1.5 gm/Sodium Chloride 500 ml @ 250 mls/hr Q8H IV ; Start 05/18/21 at 22:30; Status UNV Piperacillin Sod/ Tazobactam Sod 4.5 gm/Sodium Chloride 100 ml @ 200 mls/hr 1X ONCE IV Last administered on 05/18/21at 23:28; Start 05/18/21 at 23:00; Stop 05/18/21 at 23:29; Status DC Piperacillin Sod/ Tazobactam Sod 3.375 gm/Sodium Chloride 50 ml @ 100 mls/hr 1X ONCE IV Last administered on 05/19/21at 06:29; Start 05/19/21 at 07:00; Stop 05/19/21 at 07:29; Status DC Vancomycin HCl 2 gm/Sodium Chloride 500 ml @ 250 mls/hr 1X ONCE IV Last a dministered on 05/19/21at 00:06; Start 05/18/21 at 23:00; Stop 05/19/21 at 00:59; Status DC Vancomycin HCl (Vanco Per Pharmacy) 1 each PRN DAILY PRN MC SEE COMMENTS Last administered on 05/20/21at 15:24; Start 05/18/21 at 22:30 Vancomycin HCl 1.25 gm/Sodium Chloride 250 ml @ 167 mls/hr Q12H IV Last administered on 05/21/21at 12:08; Start 05/19/21 at 12:00 Vancomycin HCl (Vancomycin Trough Level) 1 each 1X ONCE MC Last administered on 05/20/21at 11:30; Start 05/20/21 at 11:30; Stop 05/20/21 at 11:31; Status DC Lactobacillus Rhamnosus (Culturelle) 1 cap BID PO Last administered on 05/20/21at 09:36; Start 05/19/21 at 09:00 Ondansetron HCl (Zofran) 4 mg PRN Q4HRS PRN IVP NAUSEA/VOMITING; Start 05/19/21 at 08:15 Hydralazine HCl (Apresoline Inj) 10 mg PRN Q4HRS PRN IVP ELEVATED BP, SEE COMMENTS Last administered on 05/21/21at 09:57; Start 05/19/21 at 08:15 Gabapentin (Neurontin) 300 mg QID PO Last administered on 05/20/21at 17:38; Start 05/19/21 at 13:00 Pantoprazole Sodium (Protonix) 40 mg BIDAC PO Last administered on 05/20/21at 17:38; Start 05/19/21 at 16:30 Tamsulosin HCl (Flomax) 0.4 mg QHS PO Last administered on 05/19/21at 21:21; Start 05/19/21 at 21:00 Trazodone HCl (Desyrel) 100 mg QHS PO Last administered on 05/19/21at 21:20; Start 05/19/21 at 21:00 Diclofenac Sodium (Voltaren) 75 mg BID PO Last administered on 05/20/21at 09:37; Start 05/19/21 at 21:00 Levothyroxine Sodium (Synthroid) 200 mcg DAILY07 PO Last administered on 05/20/21at 06:16; Start 05/20/21 at 07:00; Stop 05/20/21 at 21:26; Status DC Losartan Potassium (Cozaar) 50 mg DAILY PO Last administered on 05/19/21at 12:14; Start 05/19/21 at 11:45; Stop 05/20/21 at 08:33; Status DC Enalaprilat (Vasotec Inj) 1.25 mg PRN Q6HRS PRN IVP HYPERTENSION; Start 05/19/21 at 11:45 Losartan Potassium (Cozaar) 100 mg DAILY PO Last administered on 05/20/21at 09:36; Start 05/20/21 at 09:00 Hydralazine HCl (Apresoline) 50 mg BIDAC PO Last administered on 05/20/21at 17:39; Start 05/20/21 at 13:30 Dextrose (Dextrose 50%-Water Syringe) 12.5 gm PRN Q15MIN PRN IV SEE COMMENTS; Start 05/20/21 at 21:15 Levothyroxine Sodium (Synthroid) 200 mcg DAILY07 PO ; Start 05/22/21 at 07:00 Levothyroxine Sodium 100 mcg/ Sodium Chloride 5 ml @ 100 mls/hr ONCE ONCE IV Last administered on 05/21/21at 09:42; Start 05/21/21 at 09:00; Stop 05/21/21 at 09:02; Status DC Potassium Chloride/Water 100 ml @ 100 mls/hr Q1H IV Last administered on 05/21/21at 11:01; Start 05/21/21 at 06:00; Stop 05/21/21 at 09:59; Status DC Amino Acids/ Electrolytes/ Dextrose 1,000 ml @ 80 mls/hr [id number] IV ; Start 05/21/21 at 12:45; Status UNV Active Scripts Active Atenolol 100 Mg Tablet 1 Tab PO DAILY Trazodone Hcl 100 Mg Tablet 1 Tab PO QHS Gabapentin 300 Mg Capsule 300 Mg PO QID 30 Days Flomax (Tamsulosin Hcl) 0.4 Mg Cap.er.24h 0.4 Mg PO QHS 30 Days Metformin Hcl Er (Metformin Hcl) 500 Mg Tab.er.24h 500 Mg PO DAILYWBKFT 30 Days Reported Potassium Chloride (Potassium Chloride) 20 Meq Tablet.er 20 Meq PO DAILY Diclofenac Sodium 75 Mg Tablet.dr 1 Tab PO BID Protonix (Pantoprazole Sodium) 40 Mg Tablet.dr 40 Mg PO BIDAC Cephalexin 500 Mg Tablet 500 Mg PO BID Nifedipine Er (Nifedipine) 30 Mg Tablet.er 30 Mg PO HS Levothyroxine Sodium 200 Mcg Tablet 200 Mcg PO DAILYAC Hydrochlorothiazide Tablet (Hydrochlorothiazide) 25 Mg Tablet 50 Mg PO DAILY Allergies Allergies: Coded Allergies: fentanyl (Verified Allergy, Intermediate, Rash, 06/20/16) escitalopram (Verified Adverse Reaction, Severe, 11/17/20) severe headache like head is exploding fluoxetine (Verified Adverse Reaction, Severe, 06/20/16) severe headache like head is exploding duloxetine (Verified Adverse Reaction, Intermediate, Nausea and Vomiting, 06/20/16) metaxalone (Verified Adverse Reaction, Intermediate, Nausea and Vomiting, 06/20/16) oxycodone (Verified Adverse Reaction, Intermediate, Nausea and Vomiting, 06/20/16) pregabalin (Verified Adverse Reaction, Intermediate, Nausea and Vomiting, 06/20/16) tramadol (Verified Adverse Reaction, Intermediate, Nausea and Vomiting, 06/20/16) ROS Review of System Negative for fever, chills, weight loss, shortness of breath, chest pain, indigestion, hematochezia, melena, and dysuria. Full 14-point review of systems is negative. Physical Exam Physical Examination General: Well-developed, well-nourished white male in no acute distress HEENT: Normocephalic andatraumatic. Temporal arteriespulsatile and nontender. Neck: Supple without bruit, no meningismus Musculoskeletal: Stability:see neurologic. Gait exam:see neurologic. Tone:see neurologic.Strength:see neurologic. Neurological: Mental Status:orientation, memory, attention span/concentration, language, fund of knowledge: Bradyphrenia. He knows that he is in the hospital but does not know its name, not sure of the date. Denies hallucinations. Cranial Nerves:Pupils equal and reactive to light, extraocular movements areintact, visual bet[place] are full to confrontation. Facial sensation is normal. There is no facial asymmetry. Vestibulo-ocular reflex is intact. Palate elevates and tongue protrudes in midline. All other cranial related problems are negative except as mentioned before.Reflexes:1+ and symmetric with flexor plantar responses. Motor:4/5 strength with normal tone and bulk. Coordination:Finger-nose finger and [id number] testing are normal. Rapid alternating movements and fine finger movements are intact. Gait:Not tested. Sensory:Normal pinprick, vibration, light touch, proprioception. Vitals VITALS Vital Signs Date Time Temp Pulse Resp B/P (MAP) Pulse Ox O2 Delivery O2 Flow Rate FiO2 05/21/21 10:31 98.5 60 18 193/92 (125) 93 Room Air 98.5 Labs Labs Laboratory Tests Test 05/19/21 21:19 05/20/21 12:00 05/20/21 17:00 05/20/21 20:39 Glucose (Fingerstick) 88 mg/dL (70-99) 90 mg/dL (70-99) Vancomycin Level Trough 17.8 mcg/mL (10.0-20.0) Vancomycin Last Dose Date 05/20/21 Vancomycin Last Dose Time 0000 Urine Collection Type Unknown Urine Color Yellow Urine Clarity Hazy Urine pH 6.0 (<5.0-8.0) Urine Specific [place] 1.020 (1.000-1.030) Urine Protein >=300 mg/dL (NEG-TRACE) Urine Glucose (UA) Negative mg/dL (NEG) Urine Ketones (Stick) 15 mg/dL (NEG) Urine Blood Negative (NEG) Urine Nitrite Negative (NEG) Urine Bilirubin Small (NEG) Urine Urobilinogen Dipstick 0.2 mg/dL (0.2 mg/dL) Urine Leukocyte Esterase Negative (NEG) Urine RBC 0 /HPF (0-2) Urine WBC Occ /HPF (0-4) Urine Amorphous Sediment Present /HPF Urine Bacteria 0 /HPF (0-FEW) Test 05/21/21 03:06 05/21/21 04:15 Glucose (Fingerstick) 111 mg/dL (70-99) White Blood Count 14.1 x10^3/uL (4.0-11.0) Red Blood Count 4.05 x10^6/uL (4.30-5.70) Hemoglobin 12.9 g/dL (13.0-17.5) Hematocrit 38.2 % (39.0-53.0) Mean Corpuscular Volume 94 fL (79-100) Mean Corpuscular Hemoglobin 32 pg (25-35) Mean Corpuscular Hemoglobin Concent 34 g/dL (31-37) Red Cell Distribution Width 15.3 % (11.5-14.5) Platelet Count 258 x10^3/uL (140-400) Neutrophils (%) (Auto) 82 % (31-73) Lymphocytes (%) (Auto) 14 % (24-48) Monocytes (%) (Auto) 4 % (0-9) Eosinophils (%) (Auto) 1 % (0-3) Basophils (%) (Auto) 0 % (0-3) Neutrophils # (Auto) 11.6 x10^3/uL (1.8-7.7) Lymphocytes # (Auto) 1.9 x10^3/uL (1.0-4.8) Monocytes # (Auto) 0.5 x10^3/uL (0.0-1.1) Eosinophils # (Auto) 0.1 x10^3/uL (0.0-0.7) Basophils # (Auto) 0.0 x10^3/uL (0.0-0.2) Sodium Level 145 mmol/L (136-145) Potassium Level 2.7 mmol/L (3.5-5.1) Chloride Level 106 mmol/L (98-107) Carbon Dioxide Level 25 mmol/L (21-32) Anion Gap 14 (6-14) Blood Urea Nitrogen 23 mg/dL (8-26) Creatinine 1.4 mg/dL (0.7-1.3) Estimated GFR (Cockcroft-Gault) 51.9 BUN/Creatinine Ratio 16 (6-20) Glucose Level 102 mg/dL (70-99) Calcium Level 9.3 mg/dL (8.5-10.1) Total Bilirubin 0.6 mg/dL (0.2-1.0) Aspartate Amino Transf (AST/SGOT) 19 U/L (15-37) Alanine Aminotransferase (ALT/SGPT) 27 U/L (16-63) Alkaline Phosphatase 79 U/L (46-116) Total Protein 7.4 g/dL (6.4-8.2) Albumin 3.6 g/dL (3.4-5.0) Albumin/Globulin Ratio 0.9 (1.0-1.7) Laboratory Tests Test 05/20/21 17:00 05/20/21 20:39 05/21/21 03:06 05/21/21 04:15 Urine Collection Type Unknown Urine Color Yellow Urine Clarity Hazy Urine pH 6.0 (<5.0-8.0) Urine Specific [place] 1.020 (1.000-1.030) Urine Protein >=300 mg/dL (NEG-TRACE) Urine Glucose (UA) Negative mg/dL (NEG) Urine Ketones (Stick) 15 mg/dL (NEG) Urine Blood Negative (NEG) Urine Nitrite Negative (NEG) Urine Bilirubin Small (NEG) Urine Urobilinogen Dipstick 0.2 mg/dL (0.2 mg/dL) Urine Leukocyte Esterase Negative (NEG) Urine RBC 0 /HPF (0-2) Urine WBC Occ /HPF (0-4) Urine Amorphous Sediment Present /HPF Urine Bacteria 0 /HPF (0-FEW) Glucose (Fingerstick) 90 mg/dL (70-99) 111 mg/dL (70-99) White Blood Count 14.1 x10^3/uL (4.0-11.0) Red Blood Count 4.05 x10^6/uL (4.30-5.70) Hemoglobin 12.9 g/dL (13.0-17.5) Hematocrit 38.2 % (39.0-53.0) Mean Corpuscular Volume 94 fL (79-100) Mean Corpuscular Hemoglobin 32 pg (25-35) Mean Corpuscular Hemoglobin Concent 34 g/dL (31-37) Red Cell Distribution Width 15.3 % (11.5-14.5) Platelet Count 258 x10^3/uL (140-400) Neutrophils (%) (Auto) 82 % (31-73) Lymphocytes (%) (Auto) 14 % (24-48) Monocytes (%) (Auto) 4 % (0-9) Eosinophils (%) (Auto) 1 % (0-3) Basophils (%) (Auto) 0 % (0-3) Neutrophils # (Auto) 11.6 x10^3/uL (1.8-7.7) Lymphocytes # (Auto) 1.9 x10^3/uL (1.0-4.8) Monocytes # (Auto) 0.5 x10^3/uL (0.0-1.1) Eosinophils # (Auto) 0.1 x10^3/uL (0.0-0.7) Basophils # (Auto) 0.0 x10^3/uL (0.0-0.2) Sodium Level 145 mmol/L (136-145) Potassium Level 2.7 mmol/L (3.5-5.1) Chloride Level 106 mmol/L (98-107) Carbon Dioxide Level 25 mmol/L (21-32) Anion Gap 14 (6-14) Blood Urea Nitrogen 23 mg/dL (8-26) Creatinine 1.4 mg/dL (0.7-1.3) Estimated GFR (Cockcroft-Gault) 51.9 BUN/Creatinine Ratio 16 (6-20) Glucose Level 102 mg/dL (70-99) Calcium Level 9.3 mg/dL (8.5-10.1) Total Bilirubin 0.6 mg/dL (0.2-1.0) Aspartate Amino Transf (AST/SGOT) 19 U/L (15-37) Alanine Aminotransferase (ALT/SGPT) 27 U/L (16-63) Alkaline Phosphatase 79 U/L (46-116) Total Protein 7.4 g/dL (6.4-8.2) Albumin 3.6 g/dL (3.4-5.0) Albumin/Globulin Ratio 0.9 (1.0-1.7) Images Images CT head INDICATION: Confusion TECHNIQUE: Sequential axial images through the head were obtained without the administration of IV contrast. Exposure: One or more of the following in the visualized dose reduction techniques were utilized for this examination: 1. Automated exposure control 2. Adjustment of the MA and/or KV according to patient size 3. Use of iterative of reconstructive technique Comparisons: 11/02/2020 FINDINGS: No focal parenchymal lesion or hemorrhage is identified. There is no midline shift or sulcal effacement. No acute vascular territory infarction is identified. Duque-white distinction is preserved. The ventricular system is within normal limits without compression hydrocephalus. The basal cisterns are well maintained. The visualized portions of the paranasal sinuses and mastoid air cells are well- pneumatized. No acute fractures. IMPRESSION: No acute intracranial abnormality. Assessment/Plan Assessment/Plan Impression: Metabolic encephalopathy due to hypothyroidism, myxedema, with bradycardia, I d escribe his issues with pauses in speaking as bradyphrenia from this rather than absence seizures. Dysphagia, failed swallow evaluation Still nearly neurologically intact despite extensive cervical, thoracic, lumbar epidural abscesses in October 2020 History of schizophrenia and opiate abuse History of chronic pain Hypokalemia, urinary retention, diabetes, normocytic anemia, leukocytosis Recommendations: Treatment of medical diseases, thyroid replacement I do not see a need for any further neurological studies, such as electroencephalogram to look for seizures I will follow at intervals Discussed with Dr. Vazquez Thank you for letting me help with the patient's care. LIANG PIERSON MD May 21, 2021 12:57
[2021-05-21 14:35] VITALS: BP 192/86
[2021-05-21] MEDS: AA 4.25 %/CALCIUM/LYTES/D5W 1,000 ML IV SCH (15:02)
[2021-05-21] MEDS: PIPERACILLIN/TAZOBACTAM 3.375 GM in IV NORMAL SALINE 50ML 50 ML IV SCH ×3 (15:03→23:58)
[2021-05-21 19:15] VITALS: BP 183/87
[2021-05-21] MEDS ORDERED: ACETAMINOPHEN 650 MG SUPP.RECT. PR PRN (20:00)
[2021-05-21] MEDS: TAMSULOSIN 0.4 MG CAP.ER.24H. PO SCH (21:00)
[2021-05-21] MEDS: traZODone 100 MG TABLET. PO SCH (21:00)
[2021-05-21 23:05] VITALS: BP 175/81
[2021-05-22] MEDS: AA 4.25 %/CALCIUM/LYTES/D5W 1,000 ML IV SCH ×2 (02:55→16:44)
[2021-05-22 03:30] VITALS: BP 181/87
[2021-05-22] MEDS: hydrALAZINE 20 MG/ML VIAL. IVP PRN ×3 (03:53→21:56)
[2021-05-22] MEDS: PANTOPRAZOLE IV PUSH 40 MG VIAL. IVP SCH (06:11)
[2021-05-22] MEDS: PIPERACILLIN/TAZOBACTAM 3.375 GM in IV NORMAL SALINE 50ML 50 ML IV SCH ×4 (06:11→23:43)
[2021-05-22 07:00] VITALS: BP 180/86
[2021-05-22] MEDS ORDERED: LEVOTHYROXINE 100 MCG TABLET PO SCH (07:00)
[2021-05-22] MEDS ORDERED: PROMETHAZINE 12.5 MG SUPP.RECT. PR PRN (08:00)
[2021-05-22] MEDS ORDERED: BISACODYL 10 MG SUPP.RECT. PR PRN (08:00)
[2021-05-22] MEDS ORDERED: ACETAMINOPHEN 650 MG SUPP.RECT. PR PRN (08:00)
[2021-05-22] MEDS ORDERED: HALOPERIDOL LACTATE 5 MG/ML VIAL. IVP PRN (08:00)
--- NOTE | 2021-05-22 08:01 | PDOC ---
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 Cardiology consulted Myxedema coma - s/p thyroidectomy, needs total thyroid replacement for Hypothyroidism - s/p IV levothyroxine.for TSH 23 Dysphagia - fevers with aspirating secretions, zosyn for likely gram negative pneumonia from this Hypokalemia - hold HCTZ Left iliac air - likely iatrogenic from left tibial IO insertion, removed H/o urinary retention - retention more likely medication side effect. L2-L5 spinal canal stenosis Cervical spine stenosis History osteomyelitis DM2 - sliding scale Normocytic anemia - s/p transfusion previously Leukocytosis - likely reactive due to myxedema coma, will trend Chronic pain Right total knee replacement History of femur fracture October 2020 osteomyelitis T11-12 - MRI changes in cervical and thoracic spine previously History of schizophrenia and opiate abuse History of chronic pain Plan: Resume home medications FEN - Cardiac diet PPX - Heparin FULL CODE Dispo - inpatient for above Patient previously named his (Radha Padilla) as surrogate decision-maker but she 03/31/2021 his daughter, Gwen, is his archives director manager critical care unit since Radha is not available. History of Present Illness History of Present Illness Mr Byrnes is a 61-year-old male PMHx hypothyroidism, chronic pain, prior opioid u ses disorder, schizoaffective/schizophrenia, and October 2020 osteomyelitis s/p cervical, thoracic, and lumbar epidural abscess drainage who presents to the ED with 3 days of generalized fatigue and not speaking to his daughter. She states that he has been sitting in a chair mostly. He fell 05/17/21, and had called EMS. At that time he was able to shake his head to refuse transport. 05/19 called back as his mental status has declined. He has been very sleepy, and falling asleep in the middle of conversations. Prior to this his daughter did not think that he slept well the last 3 nights. EMS found him bradycardic to 37. They externally paced him and gave him 10 mg of IV Versed in total. [He was recently admitted on 11/02/2020 for spinal epidural abscess, paraspinal cervical abscess, and osteomyelitis. He was readmitted 01/26-02/08 for anemia and urinary retention.] WBC 12.1, Hb 13.6, platelets 316, TSH 23.885, CRP 3.6, lactate 2, mag 2, lipase 419, NT proBNP 868, trop 0, ammonia 0. NA 139, K3, BUN 25, CR 1.1, gluc 113, rapid COVID-19 EKG sinus rhythm with rate 43 bpm normal axis and intervals. No ST segment elevations or T WI. CT head with no acute abnormality. Chest radiograph no acute abnormality, CT abdomen pelvis with contrast reveals. Left external iliac vein. Bilateral knee radiographs right knee prosthesis abnormalities in the left knee DJD with air posteriorly. After findings apparently intraoseous in the left tibia was removed. Cultures obtained and started on broad-spectrum antibiotics and given IV levothyroxine. Admitted patient for further medical management. Cardiology consulted. 05/20: Overnight still bradycardic, confused, lethargic, requiring full assistance to attempt to eat. Mumbling, makes some eye contact. D/w daughter, Gwen, he likely has not been taking his levothyroxine at home and discussed myxedema coma state. Afebrile. 05/21: Cr up, K down. Verbalizing more today, but still confused, Had a temp of 100.5 F after not clearing his own secretions.. D/w neurology his absence episodes are bradyphrenia Afebrile overnight. Still confused, slow, halting speech. Urine culture NGTD. Continued on Zosyn for concern for aspiration pneumonia. K 3. More active. Vitals/I&O Vitals/I&O: Vital Signs Date Time Temp Pulse Resp B/P (MAP) Pulse Ox O2 Delivery O2 Flow Rate FiO2 05/22/21 03:53 59 181/87 05/22/21 03:30 97.2 20 94 Room Air 97.2 I & O 05/21/21 05/21/21 05/22/21 15:00 23:00 07:00 Intake Total 0 ml 0 ml 100 ml Balance 0 ml 0 ml 100 ml Physical Exam General: Alert, No acute distress, Other (simple one-word responses. Unable to state name, , year, or location ) Heart: Other (SB rate 55) Lungs: Clear Abdomen: Soft, No tenderness Extremities: No edema Skin: No significant lesion Assessment and Plan Assessmemt and Plan Problems Medical Problems: (1) Altered mental status Status: Acute (2) Failure to thrive in adult Status: Acute (3) Hypothyroidism Status: Acute (4) Symptomatic bradycardia Status: Acute Comment Review of Relevant I have reviewed the following items almas (where applicable) has been applied. Medications: Current Medications Medications (Trade) Dose Ordered Sig/Mary Jane Route PRN Reason Start Time Stop Time Status Last Admin Dose Admin Levothyroxine Sodium 100 mcg/ Sodium Chloride 5 ml @ 100 mls/hr ONCE ONCE IV 05/21/21 09:00 05/21/21 09:02 DC 05/21/21 09:42 Amino Acids/ Electrolytes/ Dextrose 1,000 ml @ 80 mls/hr [id number] IV 05/21/21 12:45 05/22/21 02:55 Piperacillin Sod/ Tazobactam Sod 3.375 gm/Sodium Chloride 50 ml @ 100 mls/hr Q6HRS IV 05/21/21 14:00 05/22/21 06:11 Pantoprazole Sodium (PROTONIX VIAL for IV PUSH) 40 mg DAILYAC IVP 05/22/21 07:30 05/22/21 06:11 Justifications for Admission Other Justification Lumbar spinal stenosis concerning for cauda equina syndrome WARD ESTEVEZ MD May 22, 2021 08:01
[2021-05-22] MEDS: LACTOBACILLUS RHAMNOSUS GG 1 CAPSULE. PO SCH ×2 (09:00→19:36)
[2021-05-22] MEDS: GABAPENTIN 300 MG CAPSULE. PO SCH ×4 (09:00→19:36)
[2021-05-22] MEDS: LOSARTAN POTASSIUM 50 MG TABLET. PO SCH (09:00)
[2021-05-22] MEDS: DICLOFENAC SODIUM 25 MG TABLET.DR PO SCH ×2 (09:00→19:36)
[2021-05-22 09:17] LABS: BASO % 0 % (0-3); EOS # 0.1 x10^3/uL (0.0-0.7); EOS % 1 % (0-3); HEMATOCRIT 38.6 % (39.0-53.0); LYMPH # 1.2 x10^3/uL (1.0-4.8); LYMPH % 8 % (24-48); MEAN CORPUSCULAR HEMOGLOBIN 32 pg (25-35); MEAN CORPUSCULAR HGB CONC 34 g/dL (31-37); MEAN CORPUSCULAR VOLUME 95 fL (79-100); MONO # 0.4 x10^3/uL (0.0-1.1); MONO % 3 % (0-9); NEUT # 12.8 x10^3/uL (1.8-7.7); NEUT % 89 % (31-73); PLATELET COUNT 256 x10^3/uL (140-400); RED BLOOD COUNT 4.08 x10^6/uL (4.30-5.70); RED CELL DISTRIBUTION WIDTH 15.4 % (11.5-14.5); WHITE BLOOD COUNT 14.4 x10^3/uL (4.0-11.0)
[2021-05-22 09:42] LABS: ALBUMIN 3.6 g/dL (3.4-5.0); ALBUMIN/GLOBULIN RATIO 0.9 (1.0-1.7); CALCIUM 8.3 mg/dL (8.5-10.1); CREATININE 1.3 mg/dL (0.7-1.3); GFR 56.5; TOTAL BILIRUBIN 0.6 mg/dL (0.2-1.0); TOTAL PROTEIN 7.6 g/dL (6.4-8.2)
[2021-05-22] MEDS: LEVOTHYROXINE SODIUM INJ 100 MCG in NORMAL SALINE 5 ML IVP SCH (10:25)
[2021-05-22 10:32] VITALS: BP 169/83
[2021-05-22 14:33] VITALS: BP 162/78
[2021-05-22 19:35] VITALS: BP 177/85
[2021-05-22] MEDS: TAMSULOSIN 0.4 MG CAP.ER.24H. PO SCH (19:36)
[2021-05-22] MEDS: traZODone 100 MG TABLET. PO SCH (19:36)
[2021-05-22 23:20] VITALS: BP 196/86
[2021-05-23 03:15] VITALS: BP 168/88
[2021-05-23] MEDS: PIPERACILLIN/TAZOBACTAM 3.375 GM in IV NORMAL SALINE 50ML 50 ML IV SCH ×3 (05:29→17:43)
[2021-05-23] MEDS: PANTOPRAZOLE IV PUSH 40 MG VIAL. IVP SCH (05:30)
[2021-05-23] MEDS: AA 4.25 %/CALCIUM/LYTES/D5W 1,000 ML IV SCH (05:31)
[2021-05-23 07:00] VITALS: BP 165/94
[2021-05-23] MEDS: LOSARTAN POTASSIUM 50 MG TABLET. PO SCH (08:29)
[2021-05-23] MEDS: LACTOBACILLUS RHAMNOSUS GG 1 CAPSULE. PO SCH ×2 (08:29→23:10)
[2021-05-23] MEDS: DICLOFENAC SODIUM 25 MG TABLET.DR PO SCH (08:30)
[2021-05-23] MEDS: GABAPENTIN 300 MG CAPSULE. PO SCH ×4 (08:30→23:11)
[2021-05-23] MEDS: LEVOTHYROXINE SODIUM INJ 100 MCG in NORMAL SALINE 5 ML IVP SCH (08:54)
[2021-05-23] MEDS: hydrALAZINE 20 MG/ML VIAL. IVP PRN (08:56)
--- NOTE | 2021-05-23 10:12 | PDOC ---
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 Cardiology consulted Myxedema coma - s/p thyroidectomy, needs total thyroid replacement for Hypothyroidism - s/p IV levothyroxine.for TSH 23 Dysphagia - fevers with aspirating secretions, zosyn for likely gram negative pneumonia from this Hypokalemia - hold HCTZ Left iliac air - likely iatrogenic from left tibial IO insertion, removed H/o urinary retention - retention more likely medication side effect. L2-L5 spinal canal stenosis Cervical spine stenosis History osteomyelitis DM2 - sliding scale Normocytic anemia - s/p transfusion previously Leukocytosis - likely reactive due to myxedema coma, will trend Chronic pain Right total knee replacement History of femur fracture October 2020 osteomyelitis T11-12 - MRI changes in cervical and thoracic spine previously History of schizophrenia and opiate abuse History of chronic pain Plan: Resume home medications FEN - Cardiac diet PPX - Heparin FULL CODE Dispo - inpatient for above Patient previously named his (Radha Padilla) as surrogate decision-maker but she 03/31/2021 his daughter, Gwen, is his rim fire priming tool setter primary health care nurse since Radha is not available. History of Present Illness History of Present Illness Mr Byrnes is a 61-year-old male PMHx hypothyroidism, chronic pain, prior opioid u ses disorder, schizoaffective/schizophrenia, and October 2020 osteomyelitis s/p cervical, thoracic, and lumbar epidural abscess drainage who presents to the ED with 3 days of generalized fatigue and not speaking to his daughter. She states that he has been sitting in a chair mostly. He fell 05/17/21, and had called EMS. At that time he was able to shake his head to refuse transport. 05/19 called back as his mental status has declined. He has been very sleepy, and falling asleep in the middle of conversations. Prior to this his daughter did not think that he slept well the last 3 nights. EMS found him bradycardic to 37. They externally paced him and gave him 10 mg of IV Versed in total. [He was recently admitted on 11/02/2020 for spinal epidural abscess, paraspinal cervical abscess, and osteomyelitis. He was readmitted 01/26-02/08 for anemia and urinary retention.] WBC 12.1, Hb 13.6, platelets 316, TSH 23.885, CRP 3.6, lactate 2, mag 2, lipase 419, NT proBNP 868, trop 0, ammonia 0. NA 139, K3, BUN 25, CR 1.1, gluc 113, rapid COVID-19 EKG sinus rhythm with rate 43 bpm normal axis and intervals. No ST segment elevations or T WI. CT head with no acute abnormality. Chest radiograph no acute abnormality, CT abdomen pelvis with contrast reveals. Left external iliac vein. Bilateral knee radiographs right knee prosthesis abnormalities in the left knee DJD with air posteriorly. After findings apparently intraoseous in the left tibia was removed. Cultures obtained and started on broad-spectrum antibiotics and given IV levothyroxine. Admitted patient for further medical management. Cardiology consulted. 05/20: Overnight still bradycardic, confused, lethargic, requiring full assistance to attempt to eat. Mumbling, makes some eye contact. D/w daughter, Gwen, he likely has not been taking his levothyroxine at home and discussed myxedema coma state. Afebrile. 05/21: Cr up, K down. Verbalizing more today, but still confused, Had a temp of 100.5 F after not clearing his own secretions.. D/w neurology his absence episodes are bradyphrenia 05/22: Afebrile overnight. Still confused, slow, halting speech. Urine culture NGTD. Continued on Zosyn for concern for aspiration pneumonia. K 3. More active. Afebrile overnight. More alert and speech is still slow. Clearing his own secretions much better today, still requiring IV nutrition, IV levothyroxine. Discussed with daughter Gwen Vitals/I&O Vitals/I&O: Vital Signs Date Time Temp Pulse Resp B/P (MAP) Pulse Ox O2 Delivery O2 Flow Rate FiO2 05/23/21 08:56 68 165/94 05/23/21 08:00 Room Air 05/23/21 07:00 98.4 16 95 98.4 I & O 05/22/21 05/22/21 05/23/21 15:00 23:00 07:00 Intake Total 0 ml 1010 ml Output Total 300 ml Balance 0 ml 710 ml Physical Exam General: Alert, No acute distress, Other (simple one-word responses. Unable to state name, , year, or location ) Heart: Other (SB rate 55) Lungs: Clear Abdomen: Soft, No tenderness Extremities: No edema Skin: No significant lesion Assessment and Plan Assessmemt and Plan Problems Medical Problems: (1) Altered mental status Status: Acute (2) Failure to thrive in adult Status: Acute (3) Hypothyroidism Status: Acute (4) Symptomatic bradycardia Status: Acute Comment Review of Relevant I have reviewed the following items almas (where applicable) has been applied. Justifications for Admission Other Justification Lumbar spinal stenosis concerning for cauda equina syndrome WARD ESTEVEZ MD May 23, 2021 10:12
[2021-05-23 11:00] VITALS: BP 161/84
--- NOTE | 2021-05-23 13:42 | PDOC ---
CARDIOLOGY PROGRESS NOTE SUBJECTIVE: Late entry for 05/21/21 No new specific CV issues. Denies any chest pain. No LH/dizziness. Metabolic encephalopathy still persists. OBJECTIVE: Vital Signs/I&O: Vital Signs Date Time Temp Pulse Resp B/P (MAP) Pulse Ox O2 Delivery O2 Flow Rate FiO2 05/23/21 08:56 68 165/94 05/23/21 08:00 Room Air 05/23/21 07:00 98.4 16 95 98.4 I & O 05/22/21 05/22/21 05/23/21 15:00 23:00 07:00 Intake Total 0 ml 1010 ml Output Total 300 ml Balance 0 ml 710 ml Objective: GEN.: No apparent distress. Alert and oriented. HEENT: Head is normocephalic, atraumatic NECK: Supple. LUNGS: Clear to auscultation. HEART: RRR, S1, S2 present. Peripheral pulses intact ABDOMEN: Soft, nontender. Positive bowel sounds. EXTREMITIES: Without any cyanosis. NEUROLOGIC: Speech still dysarthric at times PSYCHIATRIC: Normal affect, normal mood. SKIN: No ulcerations ASSESSMENT: 1. Sinus bradycardia; most probably secondary combination significant hypothyroidism on atenolol, Nifedipine. Presently SR. No significant bradycardia overnight. No indication for PPM 2. Hypothyroidism; TSH 25. symptomatic. 3. Metabolic encephalopathy 4. Hypertension; labile 5. Diabetes, II 6. Hypokelemia 7. Noncompliance; Reported poor compliance with meds PLAN: 1. No new CV issues. Supportive care. Late entry for 05/21/21 Thanks Justicifation of Admission Dx: Justifications for Admission: Justification of Admission Dx: Yes MADISYN POZO MD May 23, 2021 13:42
[2021-05-23 15:00] VITALS: BP 153/85
[2021-05-23] MEDS: PANTOPRAZOLE 40 MG TABLET.DR. PO SCH (16:22)
[2021-05-23 19:31] VITALS: BP 145/73
[2021-05-23 22:41] VITALS: BP 162/80
[2021-05-23] MEDS: traZODone 100 MG TABLET. PO SCH (23:10)
[2021-05-23] MEDS: TAMSULOSIN 0.4 MG CAP.ER.24H. PO SCH (23:11)
[2021-05-23] MEDS: DICLOFENAC SODIUM 1% TOPICAL GEL 100GM TUBE. TP SCH (23:13)
[2021-05-24] MEDS: PIPERACILLIN/TAZOBACTAM 3.375 GM in IV NORMAL SALINE 50ML 50 ML IV SCH ×5 (01:40→23:08)
[2021-05-24 02:57] VITALS: BP 173/86
[2021-05-24] MEDS: LEVOTHYROXINE 100 MCG TABLET PO SCH (05:44)
[2021-05-24 05:46] LABS: BASO # 0.1 x10^3/uL (0.0-0.2); BASO % 1 % (0-3); EOS # 0.5 x10^3/uL (0.0-0.7); EOS % 4 % (0-3); HEMATOCRIT 33.5 % (39.0-53.0); HEMOGLOBIN 11.4 g/dL (13.0-17.5); LYMPH # 1.8 x10^3/uL (1.0-4.8); LYMPH % 16 % (24-48); MEAN CORPUSCULAR HEMOGLOBIN 32 pg (25-35); MEAN CORPUSCULAR HGB CONC 34 g/dL (31-37); MEAN CORPUSCULAR VOLUME 95 fL (79-100); MONO # 0.5 x10^3/uL (0.0-1.1); MONO % 4 % (0-9); NEUT # 8.4 x10^3/uL (1.8-7.7); NEUT % 75 % (31-73); PLATELET COUNT 212 x10^3/uL (140-400); RED BLOOD COUNT 3.54 x10^6/uL (4.30-5.70); RED CELL DISTRIBUTION WIDTH 15.9 % (11.5-14.5); WHITE BLOOD COUNT 11.2 x10^3/uL (4.0-11.0)
[2021-05-24 06:09] LABS: ALBUMIN 3.2 g/dL (3.4-5.0); ALBUMIN/GLOBULIN RATIO 0.9 (1.0-1.7); CALCIUM 8.2 mg/dL (8.5-10.1); CREATININE 1.2 mg/dL (0.7-1.3); TOTAL BILIRUBIN 0.5 mg/dL (0.2-1.0); TOTAL PROTEIN 6.8 g/dL (6.4-8.2)
[2021-05-24 06:11] LABS: POTASSIUM 2.5 mmol/L (3.5-5.1)
[2021-05-24] MEDS ORDERED: POTASSIUM CHLORIDE 20 MEQ TABLET.ER. PO ONE ×2 (06:30→11:00)
[2021-05-24] MEDS: ACETAMINOPHEN 325 MG TABLET. PO PRN (06:57)
[2021-05-24 07:00] VITALS: BP 154/81
[2021-05-24] MEDS: LACTOBACILLUS RHAMNOSUS GG 1 CAPSULE. PO SCH ×2 (08:47→20:05)
[2021-05-24] MEDS: GABAPENTIN 300 MG CAPSULE. PO SCH ×4 (08:47→20:06)
[2021-05-24] MEDS: LOSARTAN POTASSIUM 50 MG TABLET. PO SCH (08:48)
[2021-05-24] MEDS: DICLOFENAC SODIUM 1% TOPICAL GEL 100GM TUBE. TP SCH ×2 (08:48→20:13)
--- NOTE | 2021-05-24 08:58 | PDOC ---
PROGRESS NOTES Date of Service DATE: 05/24/21 TIME: 08:55 Assessment Problems Medical Problems: (1) Altered mental status Status: Acute (2) Failure to thrive in adult Status: Acute (3) Hypothyroidism Status: Acute (4) Symptomatic bradycardia Status: Acute Metabolic encephalopathy due to hypothyroidism, myxedema, with bradycardia. Better Dysphagia, now on dysphagia to diet Still nearly neurologically intact despite extensive cervical, thoracic, lumbar epidural abscesses in October 2020 History of schizophrenia and opiate abuse History of chronic pain Hypokalemia, urinary retention, diabetes, normocytic anemia, leukocytosis Plan Treatment of medical diseases, thyroid replacement I do not see a need for any further neurological studies, such as electroencepha logram to look for seizures I will follow at intervals Subjective "I do not know how I got into thyroid problems, I was taking my medication every day." Objective Vital Signs Date Time Temp Pulse Resp B/P (MAP) Pulse Ox O2 Delivery O2 Flow Rate FiO2 05/24/21 08:48 60 154/81 05/24/21 07:00 98.8 16 96 Room Air 98.8 Intake and Output 05/24/21 06:59 Intake Total 920 ml Output Total 250 ml Balance 670 ml Intake Oral 820 ml IV Total 100 ml Output Urine Total 250 ml # Bowel Movements 1 PHYSICAL EXAM Alert. Oriented to time, place and person. Bradyphrenia resolved PERRL. EOMI. CN: no focal findings. Muscle tone: normal. Muscle strength: 4/5 DTR: 1+ Plantar reflex: flexor Gait: not examined in bed. Sensory exam: no abnormal findings. No cerebellar signs elicited. Review of Relevant I have reviewed the following items almas (where applicable) has been applied. Labs Laboratory Tests Test 05/22/21 09:05 05/24/21 05:25 White Blood Count 14.4 x10^3/uL (4.0-11.0) 11.2 x10^3/uL (4.0-11.0) Red Blood Count 4.08 x10^6/uL (4.30-5.70) 3.54 x10^6/uL (4.30-5.70) Hemoglobin 13.0 g/dL (13.0-17.5) 11.4 g/dL (13.0-17.5) Hematocrit 38.6 % (39.0-53.0) 33.5 % (39.0-53.0) Mean Corpuscular Volume 95 fL (79-100) 95 fL (79-100) Mean Corpuscular Hemoglobin 32 pg (25-35) 32 pg (25-35) Mean Corpuscular Hemoglobin Concent 34 g/dL (31-37) 34 g/dL (31-37) Red Cell Distribution Width 15.4 % (11.5-14.5) 15.9 % (11.5-14.5) Platelet Count 256 x10^3/uL (140-400) 212 x10^3/uL (140-400) Neutrophils (%) (Auto) 89 % (31-73) 75 % (31-73) Lymphocytes (%) (Auto) 8 % (24-48) 16 % (24-48) Monocytes (%) (Auto) 3 % (0-9) 4 % (0-9) Eosinophils (%) (Auto) 1 % (0-3) 4 % (0-3) Basophils (%) (Auto) 0 % (0-3) 1 % (0-3) Neutrophils # (Auto) 12.8 x10^3/uL (1.8-7.7) 8.4 x10^3/uL (1.8-7.7) Lymphocytes # (Auto) 1.2 x10^3/uL (1.0-4.8) 1.8 x10^3/uL (1.0-4.8) Monocytes # (Auto) 0.4 x10^3/uL (0.0-1.1) 0.5 x10^3/uL (0.0-1.1) Eosinophils # (Auto) 0.1 x10^3/uL (0.0-0.7) 0.5 x10^3/uL (0.0-0.7) Basophils # (Auto) 0.0 x10^3/uL (0.0-0.2) 0.1 x10^3/uL (0.0-0.2) Sodium Level 145 mmol/L (136-145) 143 mmol/L (136-145) Potassium Level 3.0 mmol/L (3.5-5.1) 2.5 mmol/L (3.5-5.1) Chloride Level 107 mmol/L (98-107) 107 mmol/L (98-107) Carbon Dioxide Level 25 mmol/L (21-32) 24 mmol/L (21-32) Anion Gap 13 (6-14) 12 (6-14) Blood Urea Nitrogen 25 mg/dL (8-26) 19 mg/dL (8-26) Creatinine 1.3 mg/dL (0.7-1.3) 1.2 mg/dL (0.7-1.3) Estimated GFR (Cockcroft-Gault) 56.5 62.0 BUN/Creatinine Ratio 19 (6-20) 16 (6-20) Glucose Level 127 mg/dL (70-99) 116 mg/dL (70-99) Calcium Level 8.3 mg/dL (8.5-10.1) 8.2 mg/dL (8.5-10.1) Total Bilirubin 0.6 mg/dL (0.2-1.0) 0.5 mg/dL (0.2-1.0) Aspartate Amino Transf (AST/SGOT) 14 U/L (15-37) 15 U/L (15-37) Alanine Aminotransferase (ALT/SGPT) 23 U/L (16-63) 27 U/L (16-63) Alkaline Phosphatase 79 U/L (46-116) 62 U/L (46-116) Total Protein 7.6 g/dL (6.4-8.2) 6.8 g/dL (6.4-8.2) Albumin 3.6 g/dL (3.4-5.0) 3.2 g/dL (3.4-5.0) Albumin/Globulin Ratio 0.9 (1.0-1.7) 0.9 (1.0-1.7) Magnesium Level 2.0 mg/dL (1.8-2.4) Laboratory Tests Test 05/24/21 05:25 White Blood Count 11.2 x10^3/uL (4.0-11.0) Red Blood Count 3.54 x10^6/uL (4.30-5.70) Hemoglobin 11.4 g/dL (13.0-17.5) Hematocrit 33.5 % (39.0-53.0) Mean Corpuscular Volume 95 fL (79-100) Mean Corpuscular Hemoglobin 32 pg (25-35) Mean Corpuscular Hemoglobin Concent 34 g/dL (31-37) Red Cell Distribution Width 15.9 % (11.5-14.5) Platelet Count 212 x10^3/uL (140-400) Neutrophils (%) (Auto) 75 % (31-73) Lymphocytes (%) (Auto) 16 % (24-48) Monocytes (%) (Auto) 4 % (0-9) Eosinophils (%) (Auto) 4 % (0-3) Basophils (%) (Auto) 1 % (0-3) Neutrophils # (Auto) 8.4 x10^3/uL (1.8-7.7) Lymphocytes # (Auto) 1.8 x10^3/uL (1.0-4.8) Monocytes # (Auto) 0.5 x10^3/uL (0.0-1.1) Eosinophils # (Auto) 0.5 x10^3/uL (0.0-0.7) Basophils # (Auto) 0.1 x10^3/uL (0.0-0.2) Sodium Level 143 mmol/L (136-145) Potassium Level 2.5 mmol/L (3.5-5.1) Chloride Level 107 mmol/L (98-107) Carbon Dioxide Level 24 mmol/L (21-32) Anion Gap 12 (6-14) Blood Urea Nitrogen 19 mg/dL (8-26) Creatinine 1.2 mg/dL (0.7-1.3) Estimated GFR (Cockcroft-Gault) 62.0 BUN/Creatinine Ratio 16 (6-20) Glucose Level 116 mg/dL (70-99) Calcium Level 8.2 mg/dL (8.5-10.1) Magnesium Level 2.0 mg/dL (1.8-2.4) Total Bilirubin 0.5 mg/dL (0.2-1.0) Aspartate Amino Transf (AST/SGOT) 15 U/L (15-37) Alanine Aminotransferase (ALT/SGPT) 27 U/L (16-63) Alkaline Phosphatase 62 U/L (46-116) Total Protein 6.8 g/dL (6.4-8.2) Albumin 3.2 g/dL (3.4-5.0) Albumin/Globulin Ratio 0.9 (1.0-1.7) Microbiology 05/20/21 Urine Culture - Final, Complete Medications Current Medications Atropine Sulfate (ATROPINE 0.5mg SYRINGE) 0.5 mg STK-MED ONCE .ROUTE ; Start at 20:05; Stop 05/18/21 at 20:05; Status DC Potassium Chloride/Water 100 ml @ 50 mls/hr 1X ONCE IV ; Start 05/18/21 at 21:15; Stop 05/18/21 at 23:14; Status UNV Potassium Chloride/Water 100 ml @ 100 mls/hr Q1H IV Last administered on 05/19/21at 00:14; Start 05/18/21 at 21:15; Stop 05/18/21 at 23:14; Status DC Iohexol (Omnipaque 300 Mg/ml) 75 ml 1X ONCE IV ; Start 05/18/21 at 22:00; Stop 05/18/21 at 22:01; Status DC Info (CONTRAST GIVEN -- Rx MONITORING) 1 each PRN DAILY PRN MC SEE COMMENTS; Start 05/18/21 at 21:45; Stop 05/20/21 at 21:44; Status DC Atropine Sulfate (ATROPINE 0.5mg SYRINGE) 0.5 mg 1X ONCE IV Last administered on 05/18/21at 20:06; Start 05/18/21 at 22:00; Stop 05/18/21 at 22:01; Status DC Levothyroxine Sodium 100 mcg/ Sodium Chloride 5 ml @ 100 mls/hr 1X ONCE IVP Last administered on 05/18/21at 23:26; Start 05/18/21 at 23:00; Stop 05/18/21 at 23:02; Status DC Ceftriaxone Sodium (Rocephin) 1 gm 1X ONCE IVP ; Start 05/18/21 at 23:00; Stop 05/18/21 at 22:21; Status DC Vancomycin HCl 1.5 gm/Sodium Chloride 500 ml @ 250 mls/hr Q8H IV ; Start 05/18/21 at 22:30; Status UNV Piperacillin Sod/ Tazobactam Sod 4.5 gm/Sodium Chloride 100 ml @ 200 mls/hr 1X ONCE IV Last administered on 05/18/21at 23:28; Start 05/18/21 at 23:00; Stop 05/18/21 at 23:29; Status DC Piperacillin Sod/ Tazobactam Sod 3.375 gm/Sodium Chloride 50 ml @ 100 mls/hr 1X ONCE IV Last administered on 05/19/21at 06:29; Start 05/19/21 at 07:00; Stop 05/19/21 at 07:29; Status DC Vancomycin HCl 2 gm/Sodium Chloride 500 ml @ 250 mls/hr 1X ONCE IV Last administered on 05/19/21at 00:06; Start 05/18/21 at 23:00; Stop 05/19/21 at 00:59; Status DC Vancomycin HCl (Vanco Per Pharmacy) 1 each PRN DAILY PRN MC SEE COMMENTS Last administered on 05/20/21at 15:24; Start 05/18/21 at 22:30; Stop 05/21/21 at 13:26; Status DC Vancomycin HCl 1.25 gm/Sodium Chloride 250 ml @ 167 mls/hr Q12H IV Last admini stered on 05/21/21at 12:08; Start 05/19/21 at 12:00; Stop 05/21/21 at 13:26; Status DC Vancomycin HCl (Vancomycin Trough Level) 1 each 1X ONCE MC Last administered on 05/20/21at 11:30; Start 05/20/21 at 11:30; Stop 05/20/21 at 11:31; Status DC Lactobacillus Rhamnosus (Culturelle) 1 cap BID PO Last administered on 05/24/21at 08:47; Start 05/19/21 at 09:00 Ondansetron HCl (Zofran) 4 mg PRN Q4HRS PRN IVP NAUSEA/VOMITING Last administered on 05/23/21at 11:46; Start 05/19/21 at 08:15 Hydralazine HCl (Apresoline Inj) 10 mg PRN Q4HRS PRN IVP ELEVATED BP, SEE COMMENTS Last administered on 05/23/21at 08:56; Start 05/19/21 at 08:15 Gabapentin (Neurontin) 300 mg QID PO Last administered on 05/24/21at 08:47; Start 05/19/21 at 13:00 Pantoprazole Sodium (Protonix) 40 mg BIDAC PO Last administered on 05/20/21at 17:38; Start 05/19/21 at 16:30; Stop 05/22/21 at 00:18; Status DC Tamsulosin HCl (Flomax) 0.4 mg QHS PO Last administered on 05/23/21at 23:11; Start 05/19/21 at 21:00 Trazodone HCl (Desyrel) 100 mg QHS PO Last administered on 05/23/21at 23:10; Start 05/19/21 at 21:00 Diclofenac Sodium (Voltaren) 75 mg BID PO Last administered on 05/20/21at 09:37; Start 05/19/21 at 21:00; Stop 05/23/21 at 14:55; Status DC Levothyroxine Sodium (Synthroid) 200 mcg DAILY07 PO Last administered on 05/20/21at 06:16; Start 05/20/21 at 07:00; Stop 05/20/21 at 21:26; Status DC Losartan Potassium (Cozaar) 50 mg DAILY PO Last administered on 05/19/21at 12:14; Start 05/19/21 at 11:45; Stop 05/20/21 at 08:33; Status DC Enalaprilat (Vasotec Inj) 1.25 mg PRN Q6HRS PRN IVP HYPERTENSION; Start 05/19/21 at 11:45 Losartan Potassium (Cozaar) 100 mg DAILY PO Last administered on 05/24/21at 08:48; Start 05/20/21 at 09:00 Hydralazine HCl (Apresoline) 50 mg BIDAC PO Last administered on 05/24/21at 05:44; Start 05/20/21 at 13:30 Dextrose (Dextrose 50%-Water Syringe) 12.5 gm PRN Q15MIN PRN IV SEE COMMENTS; Start 05/20/21 at 21:15 Levothyroxine Sodium (Synthroid) 200 mcg DAILY07 PO ; Start 05/22/21 at 07:00; Stop 05/21/21 at 23:50; Status DC Levothyroxine Sodium 100 mcg/ Sodium Chloride 5 ml @ 100 mls/hr ONCE ONCE IV Last administered on 05/21/21at 09:42; Start 05/21/21 at 09:00; Stop 05/21/21 at 09:02; Status DC Potassium Chloride/Water 100 ml @ 100 mls/hr Q1H IV Last administered on 05/21/21at 11:01; Start 05/21/21 at 06:00; Stop 05/21/21 at 09:59; Status DC Amino Acids/ Electrolytes/ Dextrose 1,000 ml @ 80 mls/hr [id number] IV Last administered on 05/23/21at 05:31; Start 05/21/21 at 12:45; Stop 05/23/21 at 14:55; Status DC Piperacillin Sod/ Tazobactam Sod 3.375 gm/Sodium Chloride 50 ml @ 100 mls/hr Q6HRS IV Last administered on 05/24/21at 05:41; Start 05/21/21 at 14:00 Acetaminophen (Tylenol Supp) 650 mg PRN Q6HRS PRN AL MILD PAIN / TEMP > 100.3'F; Start 05/21/21 at 20:00 Levothyroxine Sodium 100 mcg/ Sodium Chloride 5 ml @ 100 mls/hr DAILY IVP Last administered on 05/23/21at 08:54; Start 05/22/21 at 09:00; Stop 05/23/21 at 1 4:55; Status DC Pantoprazole Sodium (PROTONIX VIAL for IV PUSH) 40 mg DAILYAC IVP Last administered on 05/23/21at 05:30; Start 05/22/21 at 07:30; Stop 05/23/21 at 14:55; Status DC Acetaminophen (Tylenol Supp) 650 mg PRN Q6HRS PRN AL MILD PAIN / TEMP > 1 00.3'F; Start 05/22/21 at 08:00 Bisacodyl (Dulcolax Supp) 10 mg PRN DAILY PRN AL CONSTIPATION; Start 05/22/21 at 08:00 Promethazine HCl (Phenergan Supp) 12.5 mg PRN Q6HRS PRN AL NAUSEA/VOMITING; Start 05/22/21 at 08:00 Haloperidol Lactate (Haldol Inj) 2.5 mg PRN Q6HRS PRN IVP AGITATION; Start 05/22/21 at 08:00 Olanzapine (ZyPREXA ZYDIS) 5 mg PRN BID PRN PO ANXIETY / AGITATION; Start 05/22/21 at 08:00 Diclofenac Sodium (Voltaren) 1 sharon BID TP Last administered on 05/24/21at 08:48; Start 05/23/21 at 21:00 Pantoprazole Sodium (Protonix) 40 mg DAILYBFRSUP PO Last administered on 05/23/21at 16:22; Start 05/23/21 at 17:00 Levothyroxine Sodium (Synthroid) 200 mcg DAILY06 PO Last administered on 05/24/21at 05:44; Start 05/24/21 at 06:00 Potassium Chloride (Klor-Con) 40 meq 1X ONCE PO Last administered on 05/24/21at 06:31; Start 05/24/21 at 06:30; Stop 05/24/21 at 06:31; Status DC Potassium Chloride (Klor-Con) 40 meq 1X ONCE PO ; Start 05/24/21 at 11:00; Stop 05/24/21 at 11:01 Acetaminophen (Tylenol) 650 mg PRN Q6HRS PRN PO MILD PAIN / TEMP > 100.3'F Last administered on 05/24/21at 06:57; Start 05/24/21 at 06:45 Active Scripts Active Atenolol 100 Mg Tablet 1 Tab PO DAILY Trazodone Hcl 100 Mg Tablet 1 Tab PO QHS Gabapentin 300 Mg Capsule 300 Mg PO QID 30 Days Flomax (Tamsulosin Hcl) 0.4 Mg Cap.er.24h 0.4 Mg PO QHS 30 Days Metformin Hcl Er (Metformin Hcl) 500 Mg Tab.er.24h 500 Mg PO DAILYWBKFT 30 Days Reported Potassium Chloride (Potassium Chloride) 20 Meq Tablet.er 20 Meq PO DAILY Diclofenac Sodium 75 Mg Tablet. 1 Tab PO BID Protonix (Pantoprazole Sodium) 40 Mg Tablet. 40 Mg PO BIDAC Cephalexin 500 Mg Tablet 500 Mg PO BID Nifedipine Er (Nifedipine) 30 Mg Tablet.er 30 Mg PO HS Levothyroxine Sodium 200 Mcg Tablet 200 Mcg PO DAILYAC Hydrochlorothiazide Tablet (Hydrochlorothiazide) 25 Mg Tablet 50 Mg PO DAILY Vitals/I & O Vital Sign - Last 24 Hours 05/23/21 05/23/21 05/23/21 05/23/21 08:56 11:00 15:00 16:23 Temp 97.4 97.4 97.4 97.4 Pulse 68 72 80 80 Resp 16 18 B/P (MAP) 165/94 161/84 (109) 153/85 (107) 153/85 Pulse Ox 94 97 O2 Delivery Room Air Room Air 10/305/23/21 05/23/21 05/24/21 19:31 20:00 22:41 02:57 Temp 99.4 100.2 99.1 99.4 100.2 99.1 Pulse 100 79 82 Resp 16 18 16 B/P (MAP) 145/73 (97) 162/80 (107) 173/86 (115) Pulse Ox 93 95 96 O2 Delivery Room Air Room Air Room Air Room Air 05/24/21 05/24/21 05/24/21 05:44 07:00 08:48 Temp 98.8 98.8 Pulse 82 60 60 Resp 16 B/P (MAP) 173/86 154/81 (105) 154/81 Pulse Ox 96 O2 Delivery Room Air Intake and Output 05/23/21 05/23/21 05/24/21 14:59 22:59 06:59 Intake Total 120 ml 700 ml 100 ml Output Total 250 ml Balance 120 ml 450 ml 100 ml Justicifation of Admission Dx: Justifications for Admission: Justification of Admission Dx: Yes LIANG PIERSON MD May 24, 2021 08:58
--- NOTE | 2021-05-24 10:25 | RAD ---
Single AP view of the chest. Comparison: 05/18/2021. Indication: Shortness of breath Findings: The heart is not enlarged. There is no pneumothorax or effusion. No air space or interstitial diseas e. Impression: 1. No acute cardiopulmonary process. Electronically signed by: Jackson Potter MD (05/24/2021 10:23 AM) [id number]
[2021-05-24 10:30] VITALS: BP 148/72
--- NOTE | 2021-05-24 11:50 | NUR ---
SS following up with discharge planning. SS reviewed pt chart and discussed with pt RN. Pt is currently on room air. COVID19 negative. Pt on IV Zosyn. PT/OT ordered. Pt on PO diet. Pt is current on services with [facility], ; fax [phone]. Pt reported that he will return to home at discharge as he is in co-pay days for snf unit. Referral sent to [facility] and pt accepted on services. SS will continue to follow for discharge planning.
[2021-05-24 14:13] VITALS: BP 145/72
--- NOTE | 2021-05-24 15:05 | PDOC ---
[employer] PROGRESS NOTE Date of Service DOS: DATE: 05/24/21 TIME: 15:02 Chief Complaint Chief Complaint A/P: Acute encephalopathy - likely metabolic due to myxedema coma Symptomatic bradycardia - hold atenolol and CCB, will replace synthroid IV, likely symptomatic hypothyroidism in myxedema coma. Cardiology consulted Myxedema coma - s/p thyroidectomy, needs total thyroid replacement for Hypothyroidism - s/p IV levothyroxine.for TSH 23 Dysphagia - fevers with aspirating secretions, zosyn for likely gram negative pneumonia from this Hypokalemia - hold HCTZ Left iliac air - likely iatrogenic from left tibial IO insertion, removed H/o urinary retention - retention more likely medication side effect. L2-L5 spinal canal stenosis Cervical spine stenosis History osteomyelitis DM2 - sliding scale Normocytic anemia - s/p transfusion previously Leukocytosis - likely reactive due to myxedema coma, will trend Chronic pain Right total knee replacement History of femur fracture October 2020 osteomyelitis T11-12 - MRI changes in cervical and thoracic spine previously History of schizophrenia and opiate abuse History of chronic pain Plan: Resume home medications FEN - Cardiac diet PPX - Heparin FULL CODE Dispo - inpatient for above Patient previously named his (Radha Padilla) as surrogate decision-maker but she 03/31/2021 his daughter, Gwen, is his time study technologist acute care certified nursing assistant since Radha is not available. History of Present Illness History of Present Illness Mr Byrnes is a 61-year-old male PMHx hypothyroidism, chronic pain, prior opioid u ses disorder, schizoaffective/schizophrenia, and October 2020 osteomyelitis s/p cervical, thoracic, and lumbar epidural abscess drainage who presents to the ED with 3 days of generalized fatigue and not speaking to his daughter. She states that he has been sitting in a chair mostly. He fell 05/17/21, and had called EMS. At that time he was able to shake his head to refuse transport. 05/19 called back as his mental status has declined. He has been very sleepy, and falling asleep in the middle of conversations. Prior to this his daughter did not think that he slept well the last 3 nights. EMS found him bradycardic to 37. They externally paced him and gave him 10 mg of IV Versed in total. [He was recently admitted on 11/02/2020 for spinal epidural abscess, paraspinal cervical abscess, and osteomyelitis. He was readmitted 01/26-02/08 for anemia and urinary retention.] WBC 12.1, Hb 13.6, platelets 316, TSH 23.885, CRP 3.6, lactate 2, mag 2, lipase 419, NT proBNP 868, trop 0, ammonia 0. NA 139, K3, BUN 25, CR 1.1, gluc 113, rapid COVID-19 EKG sinus rhythm with rate 43 bpm normal axis and intervals. No ST segment elevations or T WI. CT head with no acute abnormality. Chest radiograph no acute abnormality, CT abdomen pelvis with contrast reveals. Left external iliac vein. Bilateral knee radiographs right knee prosthesis abnormalities in the left knee DJD with air posteriorly. After findings apparently intraoseous in the left tibia was removed. Cultures obtained and started on broad-spectrum antibiotics and given IV levothyroxine. Admitted patient for further medical management. Cardiology consulted. 05/20: Overnight still bradycardic, confused, lethargic, requiring full assistance to attempt to eat. Mumbling, makes some eye contact. D/w daughter, Gwen, he likely has not been taking his levothyroxine at home and discussed myxedema coma state. Afebrile. 05/21: Cr up, K down. Verbalizing more today, but still confused, Had a temp of 100.5 F after not clearing his own secretions.. D/w neurology his absence episodes are bradyphrenia 05/22: Afebrile overnight. Still confused, slow, halting speech. Urine culture NGTD. Continued on Zosyn for concern for aspiration pneumonia. K 3. More active. Afebrile overnight. More alert and speech is still slow. Clearing his own s ecretions much better today, still requiring IV nutrition, IV levothyroxine. Discussed with daughter Gwen 05/24 Evaluated at bedside remains afebrile. Mental status seems improved today. Still requiring intravenous Synthroid. Replace hypokalemia. Tolerating some p.o. intake now. Continue Zosyn. Vitals/I&O Vitals/I&O: Vital Signs Date Time Temp Pulse Resp B/P (MAP) Pulse Ox O2 Delivery O2 Flow Rate FiO2 05/24/21 14:13 98.6 108 18 145/72 (96) 97 Room Air 98.6 I & O 05/23/21 05/23/21 05/24/21 15:00 23:00 07:00 Intake Total 120 ml 700 ml 100 ml Output Total 250 ml Balance 120 ml 450 ml 100 ml Physical Exam General: Alert, No acute distress, Other (simple one-word responses. Unable to state name, , year, or location ) Heart: Other (SB rate 55) Lungs: Clear Abdomen: Soft, No tenderness Extremities: No edema Skin: No significant lesion Labs Labs: Laboratory Tests Test 05/24/21 05:25 White Blood Count 11.2 x10^3/uL (4.0-11.0) Red Blood Count 3.54 x10^6/uL (4.30-5.70) Hemoglobin 11.4 g/dL (13.0-17.5) Hematocrit 33.5 % (39.0-53.0) Mean Corpuscular Volume 95 fL (79-100) Mean Corpuscular Hemoglobin 32 pg (25-35) Mean Corpuscular Hemoglobin Concent 34 g/dL (31-37) Red Cell Distribution Width 15.9 % (11.5-14.5) Platelet Count 212 x10^3/uL (140-400) Neutrophils (%) (Auto) 75 % (31-73) Lymphocytes (%) (Auto) 16 % (24-48) Monocytes (%) (Auto) 4 % (0-9) Eosinophils (%) (Auto) 4 % (0-3) Basophils (%) (Auto) 1 % (0-3) Neutrophils # (Auto) 8.4 x10^3/uL (1.8-7.7) Lymphocytes # (Auto) 1.8 x10^3/uL (1.0-4.8) Monocytes # (Auto) 0.5 x10^3/uL (0.0-1.1) Eosinophils # (Auto) 0.5 x10^3/uL (0.0-0.7) Basophils # (Auto) 0.1 x10^3/uL (0.0-0.2) Sodium Level 143 mmol/L (136-145) Potassium Level 2.5 mmol/L (3.5-5.1) Chloride Level 107 mmol/L (98-107) Carbon Dioxide Level 24 mmol/L (21-32) Anion Gap 12 (6-14) Blood Urea Nitrogen 19 mg/dL (8-26) Creatinine 1.2 mg/dL (0.7-1.3) Estimated GFR (Cockcroft-Gault) 62.0 BUN/Creatinine Ratio 16 (6-20) Glucose Level 116 mg/dL (70-99) Calcium Level 8.2 mg/dL (8.5-10.1) Magnesium Level 2.0 mg/dL (1.8-2.4) Total Bilirubin 0.5 mg/dL (0.2-1.0) Aspartate Amino Transf (AST/SGOT) 15 U/L (15-37) Alanine Aminotransferase (ALT/SGPT) 27 U/L (16-63) Alkaline Phosphatase 62 U/L (46-116) Total Protein 6.8 g/dL (6.4-8.2) Albumin 3.2 g/dL (3.4-5.0) Albumin/Globulin Ratio 0.9 (1.0-1.7) Assessment and Plan Assessmemt and Plan Problems Medical Problems: (1) Altered mental status Status: Acute (2) Failure to thrive in adult Status: Acute (3) Hypothyroidism Status: Acute (4) Symptomatic bradycardia Status: Acute Comment Review of Relevant I have reviewed the following items almas (where applicable) has been applied. Medications: Current Medications Medications (Trade) Dose Ordered Sig/Mary Jane Route PRN Reason Start Time Stop Time Status Last Admin Dose Admin Diclofenac Sodium (Voltaren) 1 sharon BID TP 05/23/21 21:00 05/24/21 08:48 Pantoprazole Sodium (Protonix) 40 mg DAILYBFRSUP PO 05/23/21 17:00 05/23/21 16:22 Levothyroxine Sodium (Synthroid) 200 mcg DAILY06 PO 05/24/21 06:00 05/24/21 05:44 Potassium Chloride (Klor-Con) 40 meq 1X ONCE PO 05/24/21 06:30 05/24/21 06:31 DC 05/24/21 06:31 Potassium Chloride (Klor-Con) 40 meq 1X ONCE PO 05/24/21 11:00 05/24/21 11:01 DC 05/24/21 12:08 Acetaminophen (Tylenol) 650 mg PRN Q6HRS PRN PO MILD PAIN / TEMP > 100.3'F 05/24/21 06:45 05/24/21 06:57 Justifications for Admission Other Justification Lumbar spinal stenosis concerning for cauda equina syndrome WARD HURD MD May 24, 2021 15:05
[2021-05-24] MEDS: PANTOPRAZOLE 40 MG TABLET.DR. PO SCH (17:27)
[2021-05-24 19:54] VITALS: BP 146/78
[2021-05-24] MEDS: traZODone 100 MG TABLET. PO SCH (20:05)
[2021-05-24] MEDS: TAMSULOSIN 0.4 MG CAP.ER.24H. PO SCH (20:06)
[2021-05-24 22:53] VITALS: BP 169/80
[2021-05-25 02:46] VITALS: BP 173/89
[2021-05-25] MEDS: PIPERACILLIN/TAZOBACTAM 3.375 GM in IV NORMAL SALINE 50ML 50 ML IV SCH ×2 (05:19→12:00)
[2021-05-25] MEDS: LEVOTHYROXINE 100 MCG TABLET PO SCH (06:12)
[2021-05-25 07:00] VITALS: BP 164/81
[2021-05-25] MEDS: ACETAMINOPHEN 325 MG TABLET. PO PRN (08:41)
[2021-05-25] MEDS: LACTOBACILLUS RHAMNOSUS GG 1 CAPSULE. PO SCH (08:42)
[2021-05-25] MEDS: GABAPENTIN 300 MG CAPSULE. PO SCH ×2 (08:42→12:47)
[2021-05-25] MEDS: LOSARTAN POTASSIUM 50 MG TABLET. PO SCH (08:42)
[2021-05-25] MEDS: DICLOFENAC SODIUM 1% TOPICAL GEL 100GM TUBE. TP SCH (08:47)
[2021-05-25 10:21] LABS: CALCIUM 8.1 mg/dL (8.5-10.1); CREATININE 1.4 mg/dL (0.7-1.3); GFR 51.9; POTASSIUM 3.8 mmol/L (3.5-5.1)
[2021-05-25] MEDS ORDERED: LEVO100T5 PO (10:29)
--- NOTE | 2021-05-25 10:31 | SNU/HH DC ---
DISCHARGE WITH HOME HEALTH DISCHARGE INFORMATION: Discharge Date: May 25, 2021 Final Diagnosis: Problems Medical Problems: (1) Altered mental status Status: Acute (2) Failure to thrive in adult Status: Acute (3) Hypothyroidism Status: Acute (4) Symptomatic bradycardia Status: Acute Condition on Discharge: Stable CODE STATUS: Code Status: Full HOME HEALTH: Face to Face: I certify this patient is under my care and that I, or a nurse practitioner or physician's psychiatric technician assistant working with me, had a face to face encounter that meets the physician face to face encounter requirements with this patient on []. Retirement For: Assess & Educate Safety, Assess/Skilled Observatio RN For Eval/Treatment: Yes Physical Therapy For: Evalulation/Treatment Occupational Therapy For: Evaluation/Treatment Speech Language Pathology For: Evaluation/Treatment Pt Meets Homebound Status: Extreme weakness w/ amb., Limited distance walking POST DISCHARGE ORDERS: Activity Instructions for Disc: Activity as tolerated Weight Bearing Status after Di: As tolerated DIET AFTER DISCHARGE: ADA Wound/Incision Care: Keep wound/cast CDI CHECKS AFTER DISCHARGE: Checks after discharge: Check blood press - daily, Check blood sugar, ac/hs TREATMENT/EQUIPMENT ORDERS: Adaptive Equipment Issued: None CERTIFICATION STATEMENT: Certification Statement: Certification Statement: Based on the above finding, I certify that this patient is confined to the home and needs intermittent penitentiary care, physical therapy and/or speech therapy, or continues to need occupational therapy.~ This patient is under my care, and I have initiated the establishment of the plan of care.~ This patient will be followed by myself or a community physician who will periodically review the plan of care. Home Meds Active Scripts Atenolol (ATENOLOL) 100 Mg Tablet, 1 TAB PO DAILY, #15 TAB 0 Refills Prov:CRISTIANO KC BUD 04/24/21 Trazodone Hcl (TRAZODONE HCL) 100 Mg Tablet, 1 TAB PO QHS, #15 TAB 1 Refill Prov:CRISTIANO KC BUD 04/24/21 Gabapentin (GABAPENTIN) 300 Mg Capsule, 300 MG PO QID for PAIN for 30 Days, #120 CAP Prov:KEITH CHIN MD 02/08/21 Tamsulosin Hcl (FLOMAX) 0.4 Mg Cap.er.24h, 0.4 MG PO QHS for BPH for 30 Days, #30 CAP.SR Prov:KEITH CHIN MD 02/08/21 Metformin Hcl (METFORMIN HCL ER) 500 Mg Tab.er.24h, 500 MG PO DAILYWBKFT for ANTI-DIABETIC for 30 Days, #30 TAB 2 Refills Prov:VIKI HOWE MD 11/19/20 Reported Medications Potassium Chloride (POTASSIUM CHLORIDE ) 20 Meq Tablet.er, 20 MEQ PO DAILY for SUPPLEMENT, TAB.SR 05/19/21 Diclofenac Sodium (DICLOFENAC SODIUM) 75 Mg Tablet.dr, 1 TAB PO BID for chronic pain , #60 TAB 1 Refill 05/19/21 Pantoprazole Sodium (PROTONIX ) 40 Mg Tablet.dr, 40 MG PO BIDAC for GERD, TAB 05/19/21 Cephalexin (CEPHALEXIN) 500 Mg Tablet, 500 MG PO BID for unsure, TAB 05/19/21 Nifedipine (NIFEDIPINE ER) 30 Mg Tablet.er, 30 MG PO HS, TAB.SR 06/02/16 Levothyroxine Sodium (LEVOTHYROXINE SODIUM) 200 Mcg Tablet, 200 MCG PO DAILYAC for THYROID SUPPLEMENT, #30 TAB 0 Refills 01/22/14 Hydrochlorothiazide (HYDROCHLOROTHIAZIDE TABLET ) 25 Mg Tablet, 50 MG PO DAILY for DIURETIC, TAB 0 Refills 01/22/14 WARD HURD MD May 25, 2021 10:31
[2021-05-25 10:42] VITALS: BP 148/81
--- NOTE | 2021-05-25 11:47 | NUR ---
DISCHARGING PATIENT TO HOME WITH HOME HEALTH. DISCHARGE INSTRUCTIONS GIVEN. AWAITS FOR TRANSPORTATIONS
--- NOTE | 2021-05-25 12:39 | PDOC3 ---
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 Cardiology consulted Myxedema coma - s/p thyroidectomy, needs total thyroid replacement for Hypothyroidism - s/p IV levothyroxine.for TSH 23 Dysphagia - fevers with aspirating secretions, zosyn for likely gram negative pneumonia from this Hypokalemia - hold HCTZ Left iliac air - likely iatrogenic from left tibial IO insertion, removed H/o urinary retention - retention more likely medication side effect. L2-L5 spinal canal stenosis Cervical spine stenosis History osteomyelitis DM2 - sliding scale Normocytic anemia - s/p transfusion previously Leukocytosis - likely reactive due to myxedema coma, will trend Chronic pain Right total knee replacement History of femur fracture October 2020 osteomyelitis T11-12 - MRI changes in cervical and thoracic spine previously History of schizophrenia and opiate abuse History of chronic pain Plan: Resume home medications FEN - Cardiac diet PPX - Heparin FULL CODE Dispo - inpatient for above Patient previously named his (Radha Padilla) as surrogate decision-maker but she 03/31/2021 his daughter, Gwen, is his time study analyst health care recruiter since Radha is not available. History of Present Illness History of Present Illness Mr Byrnes is a 61-year-old male PMHx hypothyroidism, chronic pain, prior opioid uses disorder, schizoaffective/schizophrenia, and October 2020 osteomyelitis s/p cervical, thoracic, and lumbar epidural abscess drainage who presents to the ED with 3 days of generalized fatigue and not speaking to his daughter. She states that he has been sitting in a chair mostly. He fell 05/17/21, and had called EMS. At that time he was able to shake his head to refuse transport. 05/19 called back as his mental status has declined. He has been very sleepy, and falling asleep in the middle of conversations. Prior to this his daughter did not think that he slept well the last 3 nights. EMS found him bradycardic to 37. They externally paced him and gave him 10 mg of IV Versed in total. [He was recently admitted on 11/02/2020 for spinal epidural abscess, paraspinal cervical abscess, and osteomyelitis. He was readmitted 01/26-02/08 for anemia and urinary retention.] WBC 12.1, Hb 13.6, platelets 316, TSH 23.885, CRP 3.6, lactate 2, mag 2, lipase 419, NT proBNP 868, trop 0, ammonia 0. NA 139, K3, BUN 25, CR 1.1, gluc 113, rapid COVID-19 EKG sinus rhythm with rate 43 bpm normal axis and intervals. No ST segment elevations or T WI. CT head with no acute abnormality. Chest radiograph no acute abnormality, CT abdomen pelvis with contrast reveals. Left external iliac vein. Bilateral knee radiographs right knee prosthesis abnormalities in the left knee DJD with air posteriorly. After findings apparently intraoseous in the left tibia was removed. Cultures obtained and started on broad-spectrum antibiotics and given IV levothyroxine. Admitted patient for further medical management. Cardiology consulted. 05/20: Overnight still bradycardic, confused, lethargic, requiring full assistance to attempt to eat. Mumbling, makes some eye contact. D/w daughter, Gwen, he likely has not been taking his levothyroxine at home and discussed myxedema coma state. Afebrile. 05/21: Cr up, K down. Verbalizing more today, but still confused, Had a temp of 100.5 F after not clearing his own secretions.. D/w neurology his absence episodes are bradyphrenia 05/22: Afebrile overnight. Still confused, slow, halting speech. Urine culture NGTD. Continued on Zosyn for concern for aspiration pneumonia. K 3. More active. Afebrile overnight. More alert and speech is still slow. Clearing his own secretions much better today, still requiring IV nutrition, IV levothyroxine. Discussed with daughter Gwen 05/24 Evaluated at bedside remains afebrile. Mental status seems improved today. Still requiring intravenous Synthroid. Replace hypokalemia. Tolerating some p.o. intake now. Continue Zosyn. 05/25 Patient valuated at bedside doing well today without complaint. Mental status at baseline. Going for discharge today. Educated on importance of PCP follow- up. Disposition: Disposition/Orders: D/C to Home w/ HH Activity: Activity: Resume previous activity Diet: Diet: Regular Medications: Home Meds Active Scripts Levothyroxine Sodium (LEVOTHYROXINE SODIUM) 100 Mcg Tablet, 200 MCG PO DAILY06 for hypothyroid for 60 Days, #120 TAB Prov:WARD HURD MD 05/25/21 Atenolol (ATENOLOL) 100 Mg Tablet, 1 TAB PO DAILY, #15 TAB 0 Refills Prov:CRISTIANO KC BUD 04/24/21 Trazodone Hcl (TRAZODONE HCL) 100 Mg Tablet, 1 TAB PO QHS, #15 TAB 1 Refill Prov:CRISTIANO KC BUD 04/24/21 Gabapentin (GABAPENTIN) 300 Mg Capsule, 300 MG PO QID for PAIN for 30 Days, #120 CAP Prov:KEITH CHIN MD 02/08/21 Tamsulosin Hcl (FLOMAX) 0.4 Mg Cap.er.24h, 0.4 MG PO QHS for BPH for 30 Days, #30 CAP.SR Prov:KEITH CHIN MD 02/08/21 Metformin Hcl (METFORMIN HCL ER) 500 Mg Tab.er.24h, 500 MG PO DAILYWBKFT for ANTI-DIABETIC for 30 Days, #30 TAB 2 Refills Prov:VIKI HOWE MD 11/19/20 Reported Medications Potassium Chloride (POTASSIUM CHLORIDE ) 20 Meq Tablet.er, 20 MEQ PO DAILY for SUPPLEMENT, TAB.SR 05/19/21 Diclofenac Sodium (DICLOFENAC SODIUM) 75 Mg Tablet., 1 TAB PO BID for chronic pain , #60 TAB 1 Refill 05/19/21 Pantoprazole Sodium (PROTONIX ) 40 Mg Tablet.dr, 40 MG PO BIDAC for GERD, TAB 05/19/21 Nifedipine (NIFEDIPINE ER) 30 Mg Tablet.er, 30 MG PO HS, TAB.SR 06/02/16 Hydrochlorothiazide (HYDROCHLOROTHIAZIDE TABLET ) 25 Mg Tablet, 50 MG PO DAILY for DIURETIC, TAB 0 Refills 01/22/14 Discontinued Reported Medications Cephalexin (CEPHALEXIN) 500 Mg Tablet, 500 MG PO BID for unsure, TAB 05/19/21 Levothyroxine Sodium (LEVOTHYROXINE SODIUM) 200 Mcg Tablet, 200 MCG PO DAILYAC for THYROID SUPPLEMENT, #30 TAB 0 Refills 01/22/14 Scheduled Atenolol (Atenolol), 1 TAB PO DAILY Diclofenac Sodium (Diclofenac Sodium), 1 TAB PO BID, (Reported) Gabapentin (Gabapentin), 300 MG PO QID Hydrochlorothiazide (Hydrochlorothiazide Tablet ), 50 MG PO DAILY, (Reported) Levothyroxine Sodium (Levothyroxine Sodium), 200 MCG PO DAILY06 Metformin Hcl (Metformin Hcl Er), 500 MG PO DAILYWBKFT Nifedipine (Nifedipine Er), 30 MG PO HS, (Reported) Pantoprazole Sodium (Protonix ), 40 MG PO BIDAC, (Reported) Potassium Chloride (Potassium Chloride ), 20 MEQ PO DAILY, (Reported) Tamsulosin Hcl (Flomax), 0.4 MG PO QHS Trazodone Hcl (Trazodone Hcl), 1 TAB PO QHS Discontinued Medications Cephalexin (Cephalexin), 500 MG PO BID, (Reported) Levothyroxine Sodium (Levothyroxine Sodium), 200 MCG PO DAILYAC, (Reported) Justicifation of Admission Dx: Justifications for Admission: Justification of Admission Dx: Yes WARD HURD MD May 25, 2021 12:39
--- NOTE | 2021-05-25 12:49 | NUR ---
SS following up with discharge planning. SS reviewed pt chart and discussed with pt RN. Pt is currently on room air. COVID19 negative. PT/OT ordered. OT recommended home with home healthcare. Pt accepted on services with [facility], ; fax [phone]. Discharge orders received and sent to [facility]. Pt's daughter to provide transport to home.
--- NOTE | 2021-05-25 14:05 | PDOC ---
CARDIOLOGY PROGRESS NOTE SUBJECTIVE: No acute events overnight. patient is more alert and speech is much improved. Denies any CV pain or symptoms. OBJECTIVE: Vital Signs/I&O: Vital Signs Date Time Temp Pulse Resp B/P (MAP) Pulse Ox O2 Delivery O2 Flow Rate FiO2 05/25/21 10:42 99.5 90 18 148/81 (103) 95 Room Air 99.5 I & O 05/24/21 05/24/21 05/25/21 15:00 23:00 07:00 Intake Total 320 ml 760 ml 100 ml Output Total 700 ml Balance 320 ml 60 ml 100 ml Objective: GEN.: No apparent distress. Alert and oriented. HEENT: Head is normocephalic, atraumatic NECK: Supple. LUNGS: Clear to auscultation. HEART: RRR, S1, S2 present. Peripheral pulses intact ABDOMEN: Soft, nontender. Positive bowel sounds. EXTREMITIES: Without any cyanosis. NEUROLOGIC: Normal speech, normal tone PSYCHIATRIC: Normal affect, normal mood. SKIN: No ulcerations CURRENT MEDICATIONS: Current CV meds: Losartan Hydralazine. DIAGNOSTIC TESTING: No new events on telemetry Labs: Laboratory Tests 05/25/21 09:45 Laboratory Tests Test 05/25/21 09:45 Sodium Level 142 mmol/L (136-145) Potassium Level 3.8 mmol/L (3.5-5.1) Chloride Level 105 mmol/L (98-107) Carbon Dioxide Level 26 mmol/L (21-32) Anion Gap 11 (6-14) Blood Urea Nitrogen 14 mg/dL (8-26) Creatinine 1.4 mg/dL (0.7-1.3) H Estimated GFR (Cockcroft-Gault) 51.9 Glucose Level 158 mg/dL (70-99) H Calcium Level 8.1 mg/dL (8.5-10.1) L ASSESSMENT: 1. Sinus bradycardia; most probably secondary combination significant hypothyroidism on atenolol, Nifedipine. Presently SR. No significant bradycardia overnight. No indication for PPM 2. Hypothyroidism; TSH 25. symptomatic. 3. Metabolic encephalopathy 4. Hypertension; labile 5. Diabetes, II 6. Hypokelemia 7. Noncompliance; Reported poor compliance with meds PLAN: 1. Doing well overall. No new input. Continue present BP meds. Outpt follow up in 3 months. Call with questions. Thanks Justicifation of Admission Dx: Justifications for Admission: Justification of Admission Dx: Yes MADISYN POZO MD May 25, 2021 14:05
--- NOTE | 2021-05-25 15:42 | NUR ---
Discharge Note: MAURI SUAZO Discharge instructions and discharge home medications reviewed with the patient and a copy given. All questions have been answered and understanding verbalized. The following instructions and handouts were given: Home meds as directed. Fall risk factors, prevention Follow up with PCP in a week. Discontinued lines and drains: peripheral IV intact, patient tolerated removal, no complications noted Patient discharged to home with on room air via wheelchair accompanied by the patient's daughter at 1435.
== END 2021-05-25 14:35 | disposition home health service (06) | DRG 80 ==
LOC: ER 19:49 → 6 SOUTH 22:27
PROVIDERS: ADMIT Family Medicine; ATTEND Family Medicine
DX: E03.5 Myxedema coma (principal); J15.6 Pneumonia due to other Gram-negative bacteria; G93.41 Metabolic encephalopathy; J69.0 Pneumonitis due to inhalation of food and vomit; E87.1 Hypo-osmolality and hyponatremia; M62.82 Rhabdomyolysis; E87.6 Hypokalemia; D64.9 Anemia, unspecified; D69.6 Thrombocytopenia, unspecified; E11.9 Type 2 diabetes mellitus without complications; F20.9 Schizophrenia, unspecified; G89.29 Other chronic pain; I10 Essential (primary) hypertension; M17.12 Unilateral primary osteoarthritis, left knee; M48.02 Spinal stenosis, cervical region; R13.10 Dysphagia, unspecified; R62.7 Adult failure to thrive; Z96.651 Presence of right artificial knee joint; E05.00 Thyrotoxicosis with diffuse goiter without thyrotoxic crisis or storm; F32.9 Major depressive disorder, single episode, unspecified; F41.9 Anxiety disorder, unspecified; G47.33 Obstructive sleep apnea (adult) (pediatric); E11.42 Type 2 diabetes mellitus with diabetic polyneuropathy; R79.89 Other specified abnormal findings of blood chemistry; M19.90 Unspecified osteoarthritis, unspecified site; Z86.718 Personal history of other venous thrombosis and embolism; Z82.49 Family history of ischemic heart disease and other diseases of the circulatory system; Z83.3 Family history of diabetes mellitus; Z86.61 Personal history of infections of the central nervous system; Z87.891 Personal history of nicotine dependence; Z91.14 Patient's other noncompliance with medication regimen; Z88.5 Allergy status to narcotic agent; Z88.8 Allergy status to other drugs, medicaments and biological substances; Z20.822 Contact with and (suspected) exposure to COVID-19
CPT/HCPCS: 36415; 70450; 71045; 74177; 80048; 80053; 80202; 81001; 82140; 82550; 82962; 83605; 83690; 83735; 83880; 84439; 84443; 84481; 84484; 85025; 86140; 87086; 87426; 93306; 96365; 96368; 96375; C9113; J0360; J0461; J2405; J2543; J3370; J3480; J3490; J7040; J7050; U0003; U0005; 73562-50; 92526-GN; 92610-GN; 97110-GP; 97116-GP; 97535-GO; 99285-25; G0378; J7030